=== PATIENT | male | born 1950 | race Caucasian/White ===

== ENCOUNTER → 2016-10-14 | Outpatient (REF) | payer MEDICARE ==
[2016-10-14 18:20] LABS: PERCENT SATURATION 9.9 % (19.7-37.4)
== END ==
LOC: M LAB REF 16:53
PROVIDERS: ATTEND Internal Medicine Nephrology
DX: N18.9 Chronic kidney disease, unspecified (principal); D63.1 Anemia in chronic kidney disease

== ENCOUNTER 2016-10-28 08:04 | Outpatient (CLI) | payer MEDICARE ==
[~2016-10-28] VITALS: Ht 182.9 cm; Wt 137.3 kg
[2016-10-28] MEDS ORDERED: IRON SUCROSE 25 MG in NS 50 ML IV ONE (08:15)
[2016-10-28] MEDS ORDERED: BUME1TAB29 PO (09:12)
[2016-10-28] MEDS ORDERED: SIMV40TA2 PO (09:12)
[2016-10-28] MEDS ORDERED: FAMO20TA PO (09:12)
[2016-10-28] MEDS ORDERED: ASPI81TA85 PO (09:12)
[2016-10-28] MEDS ORDERED: CARV12.5 PO (09:13)
[2016-10-28] MEDS ORDERED: PROBCAP4 PO (09:13)
[2016-10-28] MEDS ORDERED: FERR325T3 PO (09:14)
[2016-10-28] MEDS ORDERED: ULOR80TA PO (09:15)
[2016-10-28] MEDS ORDERED: LEVO25TA5 PO (09:15)
[2016-10-28] MEDS ORDERED: IRON SUCROSE 475 MG in NS 250 ML IV ONE (09:15)
[2016-10-28] MEDS ORDERED: COLA100C PO (09:16)
[2016-10-28] MEDS ORDERED: ONDA8TAB8 PO (09:16)
[2016-10-28] MEDS ORDERED: FISH1000 PO (12:51)
[2016-10-28] MEDS ORDERED: VENL50TA2 PO (12:51)
[2016-10-28] MEDS ORDERED: INSUR SC (12:52)
[2016-10-28] MEDS ORDERED: SPIR25TA2 PO (12:52)
[2016-10-28] MEDS ORDERED: MAGN400C2 PO (12:53)
[2016-10-28] MEDS ORDERED: VITA100037 PO (12:54)
[2016-10-28] MEDS ORDERED: CENT1TAB13 PO (12:55)
== END 2016-10-28 12:45 | disposition home or self-care (01) ==
LOC: M INFU 08:04
PROVIDERS: ATTEND Internal Medicine Nephrology
DX: D50.9 Iron deficiency anemia, unspecified (principal)
CPT/HCPCS: 96365; 96366; J1756

== ENCOUNTER → 2017-04-08 | Outpatient (REF) | payer MEDICARE ==
[~2017-04-08] MED LIST: ASPI81TA85 PO; BUME1TAB29 PO; CARV12.5 PO; CENT1TAB13 PO; COLA100C5 PO; FAMO20TA PO; FERR325T3 PO; FISH1000 PO; INSUR SC; LEVO25TA5 PO; MAGN400C2 PO; ONDA8TAB8 PO; PROBCAP4 PO; SIMV40TA2 PO; SPIR25TA2 PO; ULOR80TA PO; VENL50TA2 PO; VITA100067 PO
[2017-04-08 15:22] LABS: ALBUMIN 3.3 GM/DL (3.2-5.2); ALBUMIN/GLOBULIN RATIO 0.94 (1.00-1.93); BILIRUBIN,DIRECT 0.2 MG/DL (0.0-0.2); BILIRUBIN,TOTAL 0.4 MG/DL (0.2-1.0); TOTAL PROTEIN 6.8 GM/DL (6.4-8.2)
== END ==
LOC: M LAB REF 13:52
PROVIDERS: ATTEND Internal Medicine Nephrology
DX: K74.69 Other cirrhosis of liver (principal)

== ENCOUNTER → 2017-10-16 | Outpatient (REF) | payer MEDICARE ==
[2017-10-16 13:52] LABS: FERRITIN 55 NG/ML (26-388); IRON (FE) 66 UG/DL (65-175); PERCENT SATURATION 24.8 % (19.7-50.0); TOTAL IRON BINDING CAPACITY 266 UG/DL (250-450)
[2017-10-16 13:56] LABS: FOLATE 21.6 NG/ML; VITAMIN B12 LEVEL 901 PG/ML
== END ==
LOC: M LAB REF 13:24
DX: D64.9 Anemia, unspecified (principal)
CPT/HCPCS: 82746

== ENCOUNTER → 2017-11-21 | Outpatient (CLI) | payer MEDICARE | LOC: M RADPRO 11:54 | DX: K74.69 Other cirrhosis of liver (principal); Z53.9 Procedure and treatment not carried out, unspecified reason | CPT/HCPCS: 76705 ==

== ENCOUNTER 2017-12-31 08:10 | Day surgery (SDC) | payer MEDICARE ==
[~2017-12-31 08:10] MED LIST changes: +ACETAMINOPHEN 325 MG TAB PO; -ASPI81TA85 PO; -BUME1TAB29 PO; -CARV12.5 PO; -CENT1TAB13 PO; -COLA100C5 PO; -FAMO20TA PO; -FERR325T3 PO; -FISH1000 PO; -INSUR SC; -LEVO25TA5 PO; -MAGN400C2 PO; -ONDA8TAB8 PO; +PHENYLEPHRINE 2.5% OPHTH SOL 2ML OS; +PHENYLEPHRINE HCL 10 % OPHTH. SOL 5ML OS; -PROBCAP4 PO; +PROPARACAINE 0.5% OPHTH SOL 15ML OS; -SIMV40TA2 PO; -SPIR25TA2 PO; -ULOR80TA PO; -VENL50TA2 PO; -VITA100067 PO
[2017-12-31] MEDS: LIDOCAINE 3.5 % 1ML OPHTH TOPICAL GEL OU (08:30)
[2017-12-31] MEDS ORDERED: DEXTROSE 50% 50 ML SYRINGE As Ordered (08:33)
[2017-12-31] MEDS: CYCLOPENTOLATE 2% OPHTH SOLN 2ML BTL OS (08:35)
[2017-12-31] MEDS: OFLOXACIN 0.3 % (OCUFLOX) OPTH SOL 5ML OS (08:35)
[2017-12-31] MEDS: TROPICAMIDE 1% OPHTH SOLN 2ML OS (08:40)
[2017-12-31 08:46] LABS: BEDSIDE GLUCOSE 98 MG/DL (80-115)
[2017-12-31] MEDS ORDERED: MIDAZOLAM INJ 2 MG/2 ML VIAL (J2250) As Ordered (09:26)
[2017-12-31] MEDS ORDERED: fentaNYL 100 MCG/2 ML INJECTION (J3010) As Ordered (09:26)
[2017-12-31] MEDS ORDERED: DEXTROSE 50% 50 ML SYRINGE IV (09:30)
[2017-12-31] MEDS: LIDOCAINE 1% SDV 5 ML VIAL As Ordered (09:37)
[2017-12-31] MEDS: HEALON DUET (HEALON 10MG/ML 0.55ML & HEALON ENDOCOAT 30MG/ML 0.85ML) As Ordered (09:37)
[2017-12-31] MEDS: POVIDONE-IODINE 5% OPHTH PREP SOL 30ML As Ordered (09:37)
[2017-12-31] MEDS: CEFUROXIME 1MG/0.1ML INTRACAMERAL INJ As Ordered (09:38)
[2017-12-31] MEDS: BALANCED SALT IRRIGATION SOLUTION 500ML BAG (FOR OR EYE MACHINE) As Ordered (09:38)
[2017-12-31 09:48] LABS: BEDSIDE GLUCOSE 143 MG/DL (80-115)
[2017-12-31] MEDS ORDERED: TRIMETHOBENZAMIDE 300 MG CAP PO (10:30)
[2017-12-31] MEDS: KETOROLAC 0.5% OPHTH SOLN OS (10:48)
[2017-12-31 13:15] LABS: BEDSIDE GLUCOSE 78 MG/DL (80-115)
[2017-12-31 13:15] LABS: BEDSIDE GLUCOSE 162 MG/DL (80-115)
== END 2017-12-31 12:04 | disposition home or self-care (01) ==
LOC: M SDC 08:10
DX: H25.12 Age-related nuclear cataract, left eye (principal); I10 Essential (primary) hypertension; E11.9 Type 2 diabetes mellitus without complications; Z92.21 Personal history of antineoplastic chemotherapy; Z88.8 Allergy status to other drugs, medicaments and biological substances; Z88.2 Allergy status to sulfonamides; Z79.4 Long term (current) use of insulin; Z92.3 Personal history of irradiation; Z79.82 Long term (current) use of aspirin; Z79.899 Other long term (current) drug therapy; Z85.118 Personal history of other malignant neoplasm of bronchus and lung; Z85.528 Personal history of other malignant neoplasm of kidney
CPT/HCPCS: 66984

== ENCOUNTER 2018-01-28 13:12 | Inpatient (IN) | payer MEDICARE ==
[2018-01-28] MEDS: NS 1,000 ML IV ×2 (14:43→22:24)
[2018-01-28] MEDS: ONDANSETRON 4MG/2ML VIAL (J2405) IV (14:44)
[2018-01-28 15:07] LABS: BASO # 0.1 10^3/uL (0.0-0.2); BASO % 0.5 % (0.0-1.0); EOS # 0.3 10^3/uL (0.0-0.50); EOS % 2.2 % (0.0-3.0); HEMATOCRIT 35.5 % (42.0-52.0); HEMOGLOBIN 12.6 g/dl (13.5-17.5); IMMATURE GRANULOCYTE % 0.6 % (0-3.0); LYMPH # 1.4 10^3/uL (1.5-4.5); LYMPH % 10.8 % (24.0-44.0); MEAN CORPUSCULAR HEMOGLOBIN 32.7 pg (27.0-33.0); MEAN CORPUSCULAR HGB CONC 35.5 g/dl (32.0-36.5); MEAN CORPUSCULAR VOLUME 92.2 fl (80.0-96.0); MONO # 0.8 10^3/uL (0.0-0.8); MONO % 6.1 % (0.0-5.0); NEUTROPHILS # 10.1 10^3/uL (1.8-7.7); NEUTROPHILS % 79.8 % (36.0-66.0); PLATELET COUNT, AUTOMATED 191 10^3/uL (150-450); RED BLOOD COUNT 3.85 10^6/uL (4.30-6.10); RED CELL DISTRIBUTION WIDTH 12.9 % (11.5-14.5); WHITE BLOOD COUNT 12.6 10^3/uL (4.0-10.0)
[2018-01-28 15:28] LABS: INR 1.11; PROTHROMBIN TIME 14.5 SECONDS (12.4-14.5)
[2018-01-28 15:30] LABS: ALBUMIN 3.4 GM/DL (3.2-5.2); ALBUMIN/GLOBULIN RATIO 0.97 (1.00-1.93); ALKALINE PHOSPHATASE 136 U/L (45-117); ALT/SGPT 33 U/L (12-78); ANION GAP 9 MEQ/L (8-16); AST/SGOT 36 U/L (7-37); BILIRUBIN,DIRECT 0.2 MG/DL (0.0-0.2); BILIRUBIN,TOTAL 0.4 MG/DL (0.2-1.0); BLOOD UREA NITROGEN 33 MG/DL (7-18); CALCIUM LEVEL 8.7 MG/DL (8.8-10.2); CARBON DIOXIDE LEVEL 25 MEQ/L (21-32); CHLORIDE LEVEL 105 MEQ/L (98-107); CREATININE FOR GFR 3.26 MG/DL (0.70-1.30); GLOMERULAR FILTRATION RATE 20.2 (>49); GLUCOSE, FASTING 64 MG/DL (70-100); LIPASE 62 U/L (73-393); POTASSIUM SERUM 4.5 MEQ/L (3.5-5.1); SODIUM LEVEL 139 MEQ/L (136-145); TOTAL PROTEIN 6.9 GM/DL (6.4-8.2)
[2018-01-28 18:50] LABS: BEDSIDE GLUCOSE 109 MG/DL (80-115)
[2018-01-28] MEDS ORDERED: MORPHINE 4 MG/ML 1ML VIAL/SYRINGE (J2270) IV (19:30)
[2018-01-28] MEDS ORDERED: BISACODYL 10 MG SUPP PR (19:30)
[2018-01-28] MEDS ORDERED: PERCOCET 5MG/325MG TAB PO (19:30)
[2018-01-28] MEDS ORDERED: ONDANSETRON 4 MG TAB (S0181) PO (19:30)
[2018-01-28] MEDS ORDERED: ACETAMINOPHEN TAB 650MG DOSE (2X325MG) PO (19:30)
[2018-01-28] MEDS ORDERED: GLUCAGON FOR INJ 1 MG VIAL (J1610) SC (19:45)
[2018-01-28] MEDS ORDERED: GLUCOSE 4 GM CHEW TABLET PO (19:45)
[2018-01-28] MEDS ORDERED: DEXTROSE 50% 50 ML SYRINGE IV (19:45)
[2018-01-28 19:51] LABS: BASO % 0.2 % (0.0-1.0); EOS # 0.1 10^3/uL (0.0-0.50); EOS % 0.9 % (0.0-3.0); HEMATOCRIT 34.8 % (42.0-52.0); HEMOGLOBIN 11.9 g/dl (13.5-17.5); IMMATURE GRANULOCYTE % 0.3 % (0-3.0); LYMPH # 0.8 10^3/uL (1.5-4.5); LYMPH % 9.5 % (24.0-44.0); MEAN CORPUSCULAR HGB CONC 34.2 g/dl (32.0-36.5); MEAN CORPUSCULAR VOLUME 93.5 fl (80.0-96.0); MONO # 0.3 10^3/uL (0.0-0.8); MONO % 3.1 % (0.0-5.0); NEUTROPHILS # 7.5 10^3/uL (1.8-7.7); PLATELET COUNT, AUTOMATED 128 10^3/uL (150-450); RED BLOOD COUNT 3.72 10^6/uL (4.30-6.10); RED CELL DISTRIBUTION WIDTH 13.1 % (11.5-14.5); WHITE BLOOD COUNT 8.8 10^3/uL (4.0-10.0)
[2018-01-28 20:07] LABS: KETONE, URINE AUTO RFX NEGATIVE (NEGATIVE); MUCUS, URINE RFX SMALL (NEGATIVE); NITRITE, URINE AUTO RFX NEGATIVE (NEGATIVE); RBC, URINE AUTO RFX 3 /HPF (0-3); SPECIFIC GRAVITY UR AUTO RFX 1.014 (1.002-1.035); SQUAM EPITHELIAL CELL UR AURFX 2 /HPF (0-6); WBC, URINE AUTO RFX 5 /HPF (0-3)
[2018-01-28 20:20] LABS: LEUKOCYTE ESTERASE UR AUTO RFX TRACE (NEGATIVE)
[2018-01-28 20:29] LABS: ANION GAP 6 MEQ/L (8-16); BLOOD UREA NITROGEN 32 MG/DL (7-18); CALCIUM LEVEL 8.5 MG/DL (8.8-10.2); CARBON DIOXIDE LEVEL 29 MEQ/L (21-32); CHLORIDE LEVEL 104 MEQ/L (98-107); CREATININE FOR GFR 3.24 MG/DL (0.70-1.30); GLOMERULAR FILTRATION RATE 20.4 (>49); GLUCOSE, FASTING 182 MG/DL (70-100); MAGNESIUM LEVEL 2.3 MG/DL (1.8-2.4); POTASSIUM SERUM 4.9 MEQ/L (3.5-5.1); SODIUM LEVEL 139 MEQ/L (136-145)
[2018-01-28] MEDS: SENOKOT S TAB PO (22:23)
[2018-01-28] MEDS: FERROUS SULFATE 325MG TAB PO (22:23)
[2018-01-28 22:24] LABS: BEDSIDE GLUCOSE 256 MG/DL (80-115)
[2018-01-28] MEDS: HEPARIN SOD (PORCINE) 5000 UNITS/ML VIAL SC (22:24)
[2018-01-28] MEDS: CARVedilol 12.5 MG TAB PO (22:24)
[2018-01-28] MEDS: LATANOPROST 0.005% OPHTH SOLN 2.5 ML OU (22:54)
[2018-01-28] MEDS: LEVEMIR (INSULIN DETEMIR) 1 UNITS/0.01ML SC (22:54)
[2018-01-28] MEDS: HumaLOG INSULIN (NovoLOG) PER UNIT SC (22:54)
[2018-01-28 23:59] LABS: OSMOLALITY SERUM 299 MOSM/KG (280-301)
[2018-01-29] MEDS: NS 1,000 ML IV ×4 (00:07→17:25)
[2018-01-29 00:09] LABS: ESTIMATED AVERAGE GLUCOSE 361 MG/DL (60-110); HEMOGLOBIN A1c 14.2 %
[2018-01-29 00:22] LABS: THYROID STIMULATING HORMONE 0.605 uIU/ML (0.358-3.740)
[2018-01-29 02:54] LABS: BEDSIDE GLUCOSE 213 MG/DL (80-115)
[2018-01-29 04:13] LABS: POTASSIUM RANDOM URINE 22.5 MEQ/L; SODIUM,RANDOM URINE 36 MEQ/L
[2018-01-29 04:24] LABS: OSMOLALITY URINE 344 MOSM/KG (500-800)
[2018-01-29] MEDS: LEVOTHYROXINE 50MCG TABLET (0.05MG) PO (05:38)
[2018-01-29] MEDS: HEPARIN SOD (PORCINE) 5000 UNITS/ML VIAL SC ×3 (05:38→21:24)
[2018-01-29 06:19] LABS: BEDSIDE GLUCOSE 196 MG/DL (80-115)
[2018-01-29 08:43] LABS: BASO % 0.4 % (0.0-1.0); EOS # 0.1 10^3/uL (0.0-0.50); EOS % 1.9 % (0.0-3.0); HEMATOCRIT 33.4 % (42.0-52.0); HEMOGLOBIN 11.5 g/dl (13.5-17.5); IMMATURE GRANULOCYTE % 0.4 % (0-3.0); LYMPH # 1.1 10^3/uL (1.5-4.5); LYMPH % 14.1 % (24.0-44.0); MEAN CORPUSCULAR HEMOGLOBIN 32.4 pg (27.0-33.0); MEAN CORPUSCULAR HGB CONC 34.4 g/dl (32.0-36.5); MEAN CORPUSCULAR VOLUME 94.1 fl (80.0-96.0); MONO # 0.4 10^3/uL (0.0-0.8); MONO % 5.1 % (0.0-5.0); NEUTROPHILS # 5.8 10^3/uL (1.8-7.7); NEUTROPHILS % 78.1 % (36.0-66.0); PLATELET COUNT, AUTOMATED 131 10^3/uL (150-450); RED BLOOD COUNT 3.55 10^6/uL (4.30-6.10); RED CELL DISTRIBUTION WIDTH 13.2 % (11.5-14.5); WHITE BLOOD COUNT 7.4 10^3/uL (4.0-10.0)
[2018-01-29] MEDS: OMEGA-3 1050MG CAPSULE PO (08:44)
[2018-01-29] MEDS: CARVedilol 12.5 MG TAB PO ×2 (08:44→21:24)
[2018-01-29] MEDS: SENOKOT S TAB PO ×2 (08:44→21:23)
[2018-01-29] MEDS: OCUVITE 1 TAB PO (08:44)
[2018-01-29] MEDS: VENLAFAXINE 37.5 MG TAB PO (08:44)
[2018-01-29] MEDS: PANTOPRAZOLE 40MG TAB (PROTONIX) PO (08:44)
[2018-01-29] MEDS: LACTOBACILLUS ACIDOPHILUS CAP (BACID) PO (08:44)
[2018-01-29] MEDS: ASPIRIN 81 MG ENTERIC TAB PO (08:44)
[2018-01-29] MEDS: FEBUXOSTAT 40 MG TABLET (ULORIC) PO (08:44)
[2018-01-29] MEDS: HumaLOG INSULIN (NovoLOG) PER UNIT SC ×4 (08:44→21:25)
[2018-01-29] MEDS ORDERED: FEBUXOSTAT 40 MG TABLET (ULORIC) PO (09:00)
[2018-01-29 09:25] LABS: ANION GAP 7 MEQ/L (8-16); BLOOD UREA NITROGEN 33 MG/DL (7-18); CARBON DIOXIDE LEVEL 27 MEQ/L (21-32); CHLORIDE LEVEL 103 MEQ/L (98-107); CREATININE FOR GFR 3.31 MG/DL (0.70-1.30); GLOMERULAR FILTRATION RATE 19.9 (>49); GLUCOSE, FASTING 253 MG/DL (70-100); MAGNESIUM LEVEL 2.4 MG/DL (1.8-2.4); POTASSIUM SERUM 4.4 MEQ/L (3.5-5.1); SODIUM LEVEL 137 MEQ/L (136-145)
[2018-01-29 12:42] LABS: BEDSIDE GLUCOSE 245 MG/DL (80-115)
[2018-01-29 16:55] LABS: BEDSIDE GLUCOSE 270 MG/DL (80-115)
[2018-01-29 20:57] LABS: BEDSIDE GLUCOSE 370 MG/DL (80-115)
[2018-01-29] MEDS: FERROUS SULFATE 325MG TAB PO (21:24)
[2018-01-29] MEDS: LATANOPROST 0.005% OPHTH SOLN 2.5 ML OU (21:25)
[2018-01-29] MEDS: LEVEMIR (INSULIN DETEMIR) 1 UNITS/0.01ML SC (21:25)
[2018-01-30] MEDS: NS 1,000 ML IV ×3 (03:38→21:05)
[2018-01-30] MEDS: LEVOTHYROXINE 50MCG TABLET (0.05MG) PO (05:55)
[2018-01-30] MEDS: HEPARIN SOD (PORCINE) 5000 UNITS/ML VIAL SC ×3 (05:56→21:05)
[2018-01-30 06:22] LABS: HEMATOCRIT 32.7 % (42.0-52.0); HEMOGLOBIN 11.1 g/dl (13.5-17.5); MEAN CORPUSCULAR HEMOGLOBIN 32.5 pg (27.0-33.0); MEAN CORPUSCULAR HGB CONC 33.9 g/dl (32.0-36.5); MEAN CORPUSCULAR VOLUME 95.6 fl (80.0-96.0); PLATELET COUNT, AUTOMATED 113 10^3/uL (150-450); RED BLOOD COUNT 3.42 10^6/uL (4.30-6.10); RED CELL DISTRIBUTION WIDTH 13.4 % (11.5-14.5); WHITE BLOOD COUNT 4.7 10^3/uL (4.0-10.0)
[2018-01-30 06:44] LABS: ALBUMIN 2.7 GM/DL (3.2-5.2); ANION GAP 5 MEQ/L (8-16); BLOOD UREA NITROGEN 30 MG/DL (7-18); CALCIUM LEVEL 7.8 MG/DL (8.8-10.2); CARBON DIOXIDE LEVEL 26 MEQ/L (21-32); CHLORIDE LEVEL 108 MEQ/L (98-107); CREATININE FOR GFR 2.79 MG/DL (0.70-1.30); GLOMERULAR FILTRATION RATE 24.2 (>49); GLUCOSE, FASTING 294 MG/DL (70-100); MAGNESIUM LEVEL 2.1 MG/DL (1.8-2.4); PHOSPHORUS LEVEL 2.6 MG/DL (2.5-4.9); POTASSIUM SERUM 4.6 MEQ/L (3.5-5.1); SODIUM LEVEL 139 MEQ/L (136-145)
[2018-01-30] MEDS: OMEGA-3 1050MG CAPSULE PO (08:55)
[2018-01-30] MEDS: FEBUXOSTAT 40 MG TABLET (ULORIC) PO (08:55)
[2018-01-30] MEDS: LACTOBACILLUS ACIDOPHILUS CAP (BACID) PO (08:55)
[2018-01-30] MEDS: ASPIRIN 81 MG ENTERIC TAB PO (08:55)
[2018-01-30] MEDS: OCUVITE 1 TAB PO (08:55)
[2018-01-30] MEDS: PANTOPRAZOLE 40MG TAB (PROTONIX) PO (08:55)
[2018-01-30] MEDS: VENLAFAXINE 37.5 MG TAB PO (08:56)
[2018-01-30] MEDS: SENOKOT S TAB PO ×2 (08:56→21:05)
[2018-01-30] MEDS: CARVedilol 12.5 MG TAB PO ×2 (08:57→21:05)
[2018-01-30] MEDS: HumaLOG INSULIN (NovoLOG) PER UNIT SC ×4 (09:03→20:00)
[2018-01-30 11:54] LABS: BEDSIDE GLUCOSE 341 MG/DL (80-115)
[2018-01-30 17:04] LABS: BEDSIDE GLUCOSE 189 MG/DL (80-115)
[2018-01-30 19:58] LABS: BEDSIDE GLUCOSE 151 MG/DL (80-115)
[2018-01-30 20:57] LABS: BEDSIDE GLUCOSE 191 MG/DL (80-115)
[2018-01-30] MEDS: FERROUS SULFATE 325MG TAB PO (21:05)
[2018-01-30] MEDS: LATANOPROST 0.005% OPHTH SOLN 2.5 ML OU (21:05)
[2018-01-30] MEDS: LEVEMIR (INSULIN DETEMIR) 1 UNITS/0.01ML SC (21:06)
[2018-01-31] MEDS: HEPARIN SOD (PORCINE) 5000 UNITS/ML VIAL SC (05:31)
[2018-01-31] MEDS: LEVOTHYROXINE 50MCG TABLET (0.05MG) PO (05:31)
[2018-01-31 06:30] LABS: HEMATOCRIT 32.1 % (42.0-52.0); HEMOGLOBIN 10.9 g/dl (13.5-17.5); MEAN CORPUSCULAR HEMOGLOBIN 32.4 pg (27.0-33.0); MEAN CORPUSCULAR VOLUME 95.5 fl (80.0-96.0); PLATELET COUNT, AUTOMATED 106 10^3/uL (150-450); RED BLOOD COUNT 3.36 10^6/uL (4.30-6.10); RED CELL DISTRIBUTION WIDTH 13.2 % (11.5-14.5); WHITE BLOOD COUNT 3.9 10^3/uL (4.0-10.0)
[2018-01-31 06:44] LABS: ALBUMIN 2.5 GM/DL (3.2-5.2); ANION GAP 4 MEQ/L (8-16); BLOOD UREA NITROGEN 24 MG/DL (7-18); CALCIUM LEVEL 7.8 MG/DL (8.8-10.2); CARBON DIOXIDE LEVEL 26 MEQ/L (21-32); CHLORIDE LEVEL 114 MEQ/L (98-107); CREATININE FOR GFR 1.78 MG/DL (0.70-1.30); GLOMERULAR FILTRATION RATE 40.7 (>49); GLUCOSE, FASTING 121 MG/DL (70-100); MAGNESIUM LEVEL 1.9 MG/DL (1.8-2.4); POTASSIUM SERUM 4.3 MEQ/L (3.5-5.1); SODIUM LEVEL 144 MEQ/L (136-145)
[2018-01-31] MEDS: CARVedilol 12.5 MG TAB PO (08:03)
[2018-01-31] MEDS: VENLAFAXINE 37.5 MG TAB PO (08:03)
[2018-01-31] MEDS: HumaLOG INSULIN (NovoLOG) PER UNIT SC ×2 (08:03→12:19)
[2018-01-31] MEDS: LACTOBACILLUS ACIDOPHILUS CAP (BACID) PO (08:04)
[2018-01-31] MEDS: ASPIRIN 81 MG ENTERIC TAB PO (08:04)
[2018-01-31] MEDS: PANTOPRAZOLE 40MG TAB (PROTONIX) PO (08:04)
[2018-01-31] MEDS: SENOKOT S TAB PO (08:04)
[2018-01-31] MEDS: OMEGA-3 1050MG CAPSULE PO (08:04)
[2018-01-31] MEDS: OCUVITE 1 TAB PO (08:05)
[2018-01-31] MEDS: FEBUXOSTAT 40 MG TABLET (ULORIC) PO (08:05)
[2018-01-31 11:57] LABS: BEDSIDE GLUCOSE 171 MG/DL (80-115)
== END 2018-01-31 14:17 | disposition home or self-care (01) | DRG 641 ==
LOC: M ED 13:12 → M ED INP 19:55 → M MSPAV 22:05
DX: E86.0 Dehydration (principal); N17.9 Acute kidney failure, unspecified; N18.4 Chronic kidney disease, stage 4 (severe); N25.81 Secondary hyperparathyroidism of renal origin; E11.65 Type 2 diabetes mellitus with hyperglycemia; M10.9 Gout, unspecified; E03.9 Hypothyroidism, unspecified; I25.10 Atherosclerotic heart disease of native coronary artery without angina pectoris; E11.22 Type 2 diabetes mellitus with diabetic chronic kidney disease; I12.9 Hypertensive chronic kidney disease with stage 1 through stage 4 chronic kidney disease, or unspecified chronic kidney disease; R11.0 Nausea; R63.0 Anorexia; D64.9 Anemia, unspecified; Z79.82 Long term (current) use of aspirin; Z79.4 Long term (current) use of insulin; Z79.899 Other long term (current) drug therapy; Z88.2 Allergy status to sulfonamides; Z88.1 Allergy status to other antibiotic agents; Z88.8 Allergy status to other drugs, medicaments and biological substances; Z92.21 Personal history of antineoplastic chemotherapy; Z85.528 Personal history of other malignant neoplasm of kidney; Z90.5 Acquired absence of kidney; Z91.19 Patient's noncompliance with other medical treatment and regimen; Z92.3 Personal history of irradiation; Z85.118 Personal history of other malignant neoplasm of bronchus and lung

== ENCOUNTER → 2018-06-18 | Outpatient (CLI) | payer MEDICARE | LOC: M PT 06:26 | DX: M17.0 Bilateral primary osteoarthritis of knee (principal) | CPT/HCPCS: 97162 ==

== ENCOUNTER → 2018-08-06 | Outpatient (CLI) | payer MEDICARE ==
[~2018-08-06] MED LIST changes: -ACETAMINOPHEN 325 MG TAB PO; +ASPI81TA85 PO; +BUME1TAB29 PO; +CALCTAB7 PO; +CARV12.5 PO; +CENT1TAB13 PO; +COLA100C5 PO; +FAMO20TA PO; +FERR325T3 PO; +FISH1000 PO; +INSUR SC; +LEVE1INJ5 SC; +LEVO25TA5 PO; +LEVO50TA5 PO; +MAGN1TAB25 PO; +MAGN400C2 PO; +ONDA8TAB8 PO; -PHENYLEPHRINE 2.5% OPHTH SOL 2ML OS; -PHENYLEPHRINE HCL 10 % OPHTH. SOL 5ML OS; +PROBCAP4 PO; -PROPARACAINE 0.5% OPHTH SOL 15ML OS; +PROT1TAB2 PO; +ROCA0.5C PO; +SIMV40TA2 PO; +SPIR-10 PO; +TRUL0.5I SC; +ULOR80TA PO; +VENL37TA PO; +VENL50TA2 PO; +VITA100067 PO; +VITA50005 PO; +XALA0.007 OU
--- NOTE | 2018-08-06 13:18 | REP ---
LIMITED ABDOMINAL ULTRASOUND: Real-time sonographic evaluation of the abdomen performed in all four quadrants to evaluate for possible ascites. No significant free fluid is seen in any portion of the abdomen or pelvis. Electronically Signed by Darren Faulkner MD 08/06/2018 02:58 P
== END ==
LOC: M RADPRO 09:59
PROVIDERS: ATTEND Internal Medicine Nephrology
DX: N18.3 Chronic kidney disease, stage 3 (moderate) (principal); K74.69 Other cirrhosis of liver; I20.9 Angina pectoris, unspecified; Z79.82 Long term (current) use of aspirin; Z79.899 Other long term (current) drug therapy; Z79.4 Long term (current) use of insulin; Z79.890 Hormone replacement therapy; Z88.8 Allergy status to other drugs, medicaments and biological substances; Z88.1 Allergy status to other antibiotic agents; Z88.2 Allergy status to sulfonamides

== ENCOUNTER 2018-11-18 09:45 | Outpatient (RCR) | payer MEDICARE ==
--- NOTE | 2018-11-11 16:50 | NUR ---
Patient presents with mild oropharyngeal dysphagia characterized by muscle weakness secondary to stroke. Patient also presents with multiple unsafe feedings strategies which increase his risk of aspiration/choking. The clinician recommends therapy for dysphagia management 1 x weekly for the next 4 weeks to provide education on safe feeding strategies and exercises to maximize safety and decrease risk of aspiration w/PO intake. Addendum: 11/11/18 at 1656 by MODESTA FARRIS Amended: Links added.
== END 2018-11-22 ==
LOC: M ST 09:45
PROVIDERS: ATTEND Internal Medicine Cardiovascular Disease
DX: I63.9 Cerebral infarction, unspecified (principal)

== ENCOUNTER 2018-12-16 08:12 | Outpatient (RCR) | payer MEDICARE ==
[~2018-12-16 08:12] MED LIST changes: -MAGN1TAB25 PO; +MAGN1TAB26 PO
== END 2018-12-22 ==
LOC: M ST 08:12
PROVIDERS: ATTEND Internal Medicine Cardiovascular Disease
DX: I69.328 Other speech and language deficits following cerebral infarction (principal)

== ENCOUNTER 2020-04-17 17:19 | Inpatient (IN) | payer MEDICARE ==
[~2020-04-17] VITALS: Ht 185.4 cm; Wt 121.0 kg
[~2020-04-17 17:19] MED LIST changes: -ASPI81TA85 PO; +ASPI81TA86 PO; +CALC-211 PO; -CALCTAB7 PO; -SIMV40TA2 PO; +SIMV40TA20 PO
[2020-04-17] MEDS ORDERED: ONDANSETRON 4MG/2ML VIAL IV ONE (18:00)
[2020-04-17] MEDS: MORPHINE 2 MG/ML 1ML VIAL (J2270) IV PRN (18:43)
[2020-04-17 20:06] LABS: MEAN CORPUSCULAR HEMOGLOBIN 33.5 pg (27.0-33.0); MEAN CORPUSCULAR HGB CONC 35.5 g/dl (32.0-36.5); MEAN CORPUSCULAR VOLUME 94.5 fl (80.0-96.0); PLATELET COUNT, AUTOMATED 154 10^3/uL (150-450); RED BLOOD COUNT 3.28 10^6/uL (4.30-6.10); WHITE BLOOD COUNT 13.9 10^3/uL (4.0-10.0)
[2020-04-17 20:46] LABS: CALCIUM LEVEL 8.1 MG/DL (8.8-10.2); CREATININE FOR GFR 4.55 MG/DL (0.70-1.30); GLOMERULAR FILTRATION RATE 13.7 (>42); POTASSIUM SERUM 5.7 MEQ/L (3.5-5.1)
[2020-04-17] MEDS ORDERED: NS 1,000 ML IV SCH (21:11)
[2020-04-17] MEDS ORDERED: SOD POLYSTYRENE SULFONATE SUSP 15 GM/60 ML UD PO ONE (21:15)
[2020-04-17] MEDS ORDERED: MOM 30ML SUSPENSION UDC PO PRN (21:45)
[2020-04-17] MEDS ORDERED: INSUHUMDS SC (22:22)
[2020-04-17] MEDS ORDERED: VENL37.52 PO (22:22)
[2020-04-17] MEDS ORDERED: VITA50005 PO (22:22)
[2020-04-17] MEDS ORDERED: BAYE325T12 PO (22:22)
[2020-04-17] MEDS ORDERED: CALC500T44 PO (22:22)
[2020-04-17] MEDS ORDERED: SPIR-10 PO (22:22)
[2020-04-17] MEDS ORDERED: BACITAB PO (22:22)
[2020-04-17] MEDS ORDERED: FISH1000 PO (22:22)
[2020-04-17] MEDS ORDERED: INSULADS SC (22:22)
[2020-04-17] MEDS ORDERED: BUME1TAB3 PO (22:22)
[2020-04-17] MEDS ORDERED: HYDR-3911 PO (22:22)
[2020-04-17] MEDS ORDERED: SIMV40TA20 PO (22:22)
[2020-04-17] MEDS ORDERED: VITMTA PO (22:22)
[2020-04-18] VITALS (12 sets, daily range): BP systolic 135–188; BP diastolic 62–96
--- NOTE | 2020-04-18 00:51 | REPVR ---
PROCEDURE INFORMATION: Exam: US Retroperitoneal; Complete; Kidneys and Bladder Exam date and time: 04/18/2020 12:36 AM Age: 69 years old Clinical indication: Abnormal findings; Abnormal lab test; Abnormal kidney function lab tests; Additional info: Acute on ckd. Status post left nephrectomy. TECHNIQUE: Imaging protocol: Real-time ultrasound of the retroperitoneum with image documentation. Complete exam focused on the kidneys and bladder. COMPARISON: Abdomen, limited US 08/06/2018 10:05 AM FINDINGS: Right kidney: Right kidney measures 8.5 cm in length. No right hydronephrosis. Mild renal cortical atrophy. Mild scarring in the upper pole. Normal echogenicity. Left kidney: Left kidney is not seen in the renal fossa. Bladder: Bladder is unremarkable. IMPRESSION: 1. No right hydronephrosis. 2. Mild right renal cortical atrophy. 3. Left kidney is not seen. Electronically signed by: Clara Ferrari On 04/18/2020 00:51:32 AM
[2020-04-18] MEDS: ACETAMINOPHEN TAB 650MG DOSE (2X325MG) PO PRN (01:17)
[2020-04-18 01:49] LABS: CK-MB VALUE MASS 2.7 NG/ML (<3.6); MB/CK RELATIVE INDEX 2.78 (< OR =4); TROPONIN I 0.02 NG/ML (< 0.10)
[2020-04-18] MEDS ORDERED: PERCOCET 5MG/325MG TAB PO PRN (02:15)
[2020-04-18] MEDS: PERCOCET 5MG/325MG TAB PO PRN ×5 (03:30→23:16)
[2020-04-18] MEDS: FERROUS SULFATE 325MG TAB PO SCH ×2 (03:31→20:16)
[2020-04-18] MEDS: CARVedilol 12.5 MG TAB PO SCH ×3 (03:31→20:18)
[2020-04-18] MEDS: **hydrALAZINE** 50 MG TAB PO SCH ×4 (03:31→20:18)
[2020-04-18] MEDS: LATANOPROST 0.005% OPHTH SOLN 2.5 ML OU SCH ×2 (03:32→20:19)
[2020-04-18] MEDS: SIMVASTATIN 40 MG TAB PO SCH ×2 (03:32→20:17)
[2020-04-18 05:45] LABS: HEMATOCRIT 28.4 % (42.0-52.0); HEMOGLOBIN 9.9 g/dl (13.5-17.5); MEAN CORPUSCULAR HEMOGLOBIN 32.9 pg (27.0-33.0); MEAN CORPUSCULAR HGB CONC 34.9 g/dl (32.0-36.5); MEAN CORPUSCULAR VOLUME 94.4 fl (80.0-96.0); PLATELET COUNT, AUTOMATED 114 10^3/uL (150-450); RED BLOOD COUNT 3.01 10^6/uL (4.30-6.10); WHITE BLOOD COUNT 8.2 10^3/uL (4.0-10.0)
[2020-04-18 06:09] LABS: CK-MB VALUE MASS 2.8 NG/ML (<3.6); CREATININE FOR GFR 4.69 MG/DL (0.70-1.30); GLOMERULAR FILTRATION RATE 13.2 (>42); MAGNESIUM LEVEL 2.1 MG/DL (1.8-2.4); MB/CK RELATIVE INDEX 2.46 (< OR =4); POTASSIUM SERUM 4.9 MEQ/L (3.5-5.1); TROPONIN I 0.02 NG/ML (< 0.10)
[2020-04-18] MEDS: amLODIPine 5 MG TAB PO SCH ×2 (06:31→20:17)
[2020-04-18] MEDS: LEVOTHYROXINE 50MCG TABLET (0.05MG) PO SCH (06:32)
[2020-04-18] MEDS: ASPIRIN 325 MG TAB PO SCH (08:40)
[2020-04-18] MEDS: LACTOBACILLUS ACIDOPHILUS CAP (BACID) PO SCH (08:40)
[2020-04-18] MEDS: FEBUXOSTAT 40 MG TABLET (ULORIC) PO SCH (08:40)
[2020-04-18] MEDS: VENLAFAXINE **XR** 37.5 MG CAPSULE PO SCH (08:40)
[2020-04-18] MEDS: PANTOPRAZOLE 40MG TAB (PROTONIX) PO SCH (08:42)
[2020-04-18] MEDS: CALCIUM/VITAMIN D 500 MG TAB PO SCH (08:42)
[2020-04-18] MEDS: MULTIVITAMINS/MINERALS THERAP 1 TAB PO SCH (08:42)
[2020-04-18] MEDS ORDERED: PREVNAR 13 VACCINE SYRINGE IM ONE (09:00)
[2020-04-18] MEDS ORDERED: DEXTROSE 50% 50 ML SYRINGE IV PRN (10:30)
[2020-04-18] MEDS ORDERED: GLUCOSE 4GM CHEW TABLET PO PRN (10:30)
[2020-04-18] MEDS ORDERED: GLUCAGON INJ 1MG VIAL SC PRN (10:30)
[2020-04-18] MEDS ORDERED: NS 1,000 ML IV SCH (10:45)
--- NOTE | 2020-04-18 11:11 | IPNPDOC ---
Text Note Date of Service The patient was seen on 04/18/20. NOTE Patient seen and examined at the bed side. States he feels much better then y . Lft arm wrapped in sling. PHYSICAL EXAMINATION: GENERAL: NAD, calm/cooperative, laying flat in bed HEENT: MMM, NC/AT, EOMI/PERRL CARDIOVASCULAR: RRR, no r/g, +s1/s2 RESPIRATORY: CTAB ABDOMINAL: Soft, non tender , +BS, no obvious organomegaly EXTREMITIES: no clubbing/cyanosis/edema, Lft arm wrapped in sling. NEUROLOGICAL: no obvious neurologic deficits PSYCHOLOGICAL: normal mood/flat affect LABORATORY DATA, IMAGING STUDIES, MICROBIOLOGY: Please see below. PROBLEMS: 1. Acute renal failure superimposed on chronic kidney disease. He states that because of his chronic pain he takes 2 aleeves 3-4 days in week. He probably has ATN , could be dehydration compnent as well .IV fluids will be continued at 75cc per hour. Aviod nephro toxic drugs. I/O strict. Made 800 cc in last 12 hours . Has a h/o BPH as well and had a post renal component as well but post viod bladder scan is <15cc. Cont to monitor. PTH ordered to corelate with the degree of CKD. 2. H/O renal CC . S/p left nephrectomy. 3. Fall. Mechanical. Xray of left shoulder reviewed. Currently awaiting ortho consult. DISPOSITION:Unknown at this time VS,Robbbone, I+O VS, Fishbone, I+O Laboratory Tests 04/17/20 19:36 04/17/20 19:51 04/18/20 04:45 Vital Signs Date Time Temp Pulse Resp B/P (MAP) Pulse Ox O2 Delivery O2 Flow Rate FiO2 04/18/20 08:42 61 04/18/20 08:41 152/72 04/18/20 08:40 22 97 Room Air 04/18/20 08:00 97.0 I&O- Last 24 Hours up to 6 AM 04/18/20 06:00 Intake Total 990 ml Output Total 800 ml Balance 190 ml ERIKA CASTLE MD Apr 18, 2020 10:44
[2020-04-18] MEDS ORDERED: PREVNAR 13 VACCINE SYRINGE IM SCH (12:00)
[2020-04-18] MEDS: HumaLOG INSULIN (NovoLOG) PER UNIT SC SCH ×3 (12:15→20:29)
[2020-04-18 12:31] LABS: PTH INTACT 103.9 PG/ML (18.5-88.0)
[2020-04-19] VITALS (7 sets, daily range): BP systolic 114–179; BP diastolic 60–96
[2020-04-19] MEDS: MORPHINE 2 MG/ML 1ML VIAL (J2270) IV PRN (00:07)
[2020-04-19 05:09] LABS: BASO % 0.6 % (0.0-1.0); EOS # 0.4 10^3/uL (0.0-0.5); EOS % 6.2 % (0.0-3.0); HEMATOCRIT 26.9 % (42.0-52.0); LYMPH # 0.9 10^3/uL (1.5-5.0); LYMPH % 13.6 % (24.0-44.0); MEAN CORPUSCULAR HEMOGLOBIN 32.3 pg (27.0-33.0); MEAN CORPUSCULAR HGB CONC 33.5 g/dl (32.0-36.5); MEAN CORPUSCULAR VOLUME 96.4 fl (80.0-96.0); MONO # 0.4 10^3/uL (0.0-0.8); MONO % 5.5 % (0.0-5.0); NEUTROPHILS # 5.1 10^3/uL (1.5-8.5); NEUTROPHILS % 73.8 % (36.0-66.0); RED BLOOD COUNT 2.79 10^6/uL (4.30-6.10); WHITE BLOOD COUNT 6.9 10^3/uL (4.0-10.0)
[2020-04-19] MEDS: LEVOTHYROXINE 50MCG TABLET (0.05MG) PO SCH (05:15)
[2020-04-19] MEDS: PERCOCET 5MG/325MG TAB PO PRN ×2 (05:17→19:59)
[2020-04-19 05:33] LABS: PLATELET COUNT, AUTOMATED 96 10^3/uL (150-450)
[2020-04-19 05:34] LABS: ALBUMIN 2.3 GM/DL (3.2-5.2); BILIRUBIN,TOTAL 0.4 MG/DL (0.2-1.0); CALCIUM LEVEL 7.8 MG/DL (8.8-10.2); CREATININE FOR GFR 4.44 MG/DL (0.70-1.30); GLOMERULAR FILTRATION RATE 14.1 (>42); POTASSIUM SERUM 4.7 MEQ/L (3.5-5.1); TOTAL PROTEIN 5.4 GM/DL (6.4-8.2)
[2020-04-19] MEDS: ONDANSETRON 4 MG ORAL DISINTEGRATING TAB PO PRN (06:12)
[2020-04-19] MEDS ORDERED: ONDANSETRON 4MG/2ML VIAL As Ordered ONE (07:54)
[2020-04-19] MEDS: HumaLOG INSULIN (NovoLOG) PER UNIT SC SCH ×4 (07:58→21:00)
[2020-04-19] MEDS ORDERED: ONDANSETRON 4MG/2ML VIAL IV ONE (08:00)
--- NOTE | 2020-04-19 09:37 | REPVR ---
PROCEDURE INFORMATION: Exam: US Duplex Right Upper Extremity Veins, Limited Exam date and time: 04/19/2020 8:38 AM Age: 69 years old Clinical indication: Condition or disease; Other: Esrd; Additional info: Pre avf, esrd, vein mapping ue TECHNIQUE: Imaging protocol: Real-time Duplex ultrasound of the Right Upper Extremity with 2-D kennedy scale, color Doppler flow and spectral waveform analysis with image documentation. Limited exam focused on the right upper extremity veins. COMPARISON: No relevant prior studies available. FINDINGS: Right deep veins: Unremarkable. Axillary and brachial veins are patent throughout without thrombus. Normal Doppler waveforms. Normal compressibility and/or augmentation response. Visualized internal jugular and subclavian veins are patent. Right superficial veins: Unremarkable. Visualized cephalic and basilic veins are patent without thrombus. Basilic venous diameters 3.5 mm in the upper humerus, 3.3 mm in the lower humerus, 2.0 mm in the upper forearm, 1.6 mm in the lower forearm, 1.9 mm in the median cubital region. Cephalic venous diameters 2.5 mm in the upper humerus, 3.6 mm in the lower humerus, 1.7 mm in the upper forearm, 1.2 mm in the lower forearm, 1.9 mm in the median cubital region. 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 Soft tissues: Unremarkable. IMPRESSION: 1. No deep venous thrombus demonstrated in the right upper extremity. 2. Superficial venous diameters as described. 3. 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 Electronically signed by: Hakeem Sepulveda On 04/19/2020 09:37:37 AM
--- NOTE | 2020-04-19 09:43 | REPVR ---
PROCEDURE INFORMATION: Exam: CT Abdomen And Pelvis Without Contrast Exam date and time: 04/19/2020 8:48 AM Age: 69 years old Clinical indication: Abdominal pain; Additional info: N/v TECHNIQUE: Imaging protocol: Computed tomography of the abdomen and pelvis without contrast. Radiation optimization: All CT scans at this facility use at least one of these dose optimization techniques: automated exposure control; mA and/or kV adjustment per patient size (includes targeted exams where dose is matched to clinical indication); or iterative reconstruction. COMPARISON: US Renal 04/18/2020 12:35 AM FINDINGS: Limitations: Evaluation is somewhat limited by lack of IV contrast. Pleural space: There is a small right pleural effusion. This is associated with compression atelectasis and possibly consolidation. The left lung demonstrates minor atelectasis and scarring. Liver: The liver has a shrunken appearance and nodular contour, suggesting cirrhosis. Gallbladder and bile ducts: Neither the gallbladder nor cholecystectomy clips are identified. Pancreas: The pancreas demonstrates fatty atrophy. Spleen: The spleen contains some tiny calcified granulomas. It appears otherwise grossly unremarkable. Adrenals: Grossly unremarkable. Kidneys and ureters: The left kidney is surgically absent. The right kidney is without hydronephrosis or stone, and contains a 1.2 cm cyst posteromedially, not requiring follow-up. Stomach and bowel: The unopacified small bowel is not significantly distended to suggest obstruction. The large bowel is grossly unremarkable in appearance. Appendix: The appendix is not identified, but there are no inflammatory changes in its expected region. Intraperitoneal space: No free air or significant free fluid. Vasculature: The abdominal aorta is nonaneurysmal. Atherosclerotic vascular calcifications are noted. Lymph nodes: No gross pathologic lymphadenopathy. Bladder: Grossly unremarkable. Reproductive: Unremarkable as visualized. Bones/joints: Degenerative changes involve the spine and hips. Soft tissues: There appear to be operative changes of left inguinal hernia repair. A small fat containing right inguinal hernia is present, as is a small fat containing umbilical hernia. IMPRESSION: 1. Left kidney surgically absent. Right kidney without hydronephrosis or stone. 2. Small right pleural effusion associated with compression atelectasis and possibly consolidation. Follow-up with dedicated chest imaging. 3. Cirrhotic appearance of the liver. 4. Small fat containing right inguinal and umbilical hernias, with apparent prior operative repair of left inguinal hernia. COMMENTS: Depending on suspected etiology of symptoms, consider a targeted ultrasound or contrast enhanced exam. Electronically signed by: Hakeem Sepulveda On 04/19/2020 09:43:31 AM
[2020-04-19] MEDS: CALCIUM/VITAMIN D 500 MG TAB PO SCH (10:34)
[2020-04-19] MEDS: amLODIPine 5 MG TAB PO SCH ×2 (10:34→20:00)
[2020-04-19] MEDS: ASPIRIN 325 MG TAB PO SCH (10:34)
[2020-04-19] MEDS: FEBUXOSTAT 40 MG TABLET (ULORIC) PO SCH (10:34)
[2020-04-19] MEDS: CARVedilol 12.5 MG TAB PO SCH ×2 (10:35→20:00)
[2020-04-19] MEDS: LACTOBACILLUS ACIDOPHILUS CAP (BACID) PO SCH (10:35)
[2020-04-19] MEDS: PANTOPRAZOLE 40MG TAB (PROTONIX) PO SCH (10:35)
[2020-04-19] MEDS: VENLAFAXINE **XR** 37.5 MG CAPSULE PO SCH (10:35)
[2020-04-19] MEDS: CALCITRIOL 0.25 MCG CAP (S0169) PO SCH (10:35)
[2020-04-19] MEDS: MULTIVITAMINS/MINERALS THERAP 1 TAB PO SCH (10:35)
[2020-04-19] MEDS: **hydrALAZINE** 50 MG TAB PO SCH ×3 (10:36→19:58)
--- NOTE | 2020-04-19 10:39 | IPNPDOC ---
Text Note Date of Service The patient was seen on 04/19/20. NOTE Patient seen and examined at the bed side. States he feels much better . Lft arm wrapped in sling. PHYSICAL EXAMINATION: GENERAL: NAD, calm/cooperative, laying flat in bed HEENT: MMM, NC/AT, EOMI/PERRL CARDIOVASCULAR: RRR, no r/g, +s1/s2 RESPIRATORY: CTAB ABDOMINAL: Soft, non tender , +BS, no obvious organomegaly EXTREMITIES: no clubbing/cyanosis/edema, Lft arm wrapped in sling. NEUROLOGICAL: no obvious neurologic deficits PSYCHOLOGICAL: normal mood/flat affect LABORATORY DATA, IMAGING STUDIES, MICROBIOLOGY: Please see below. PROBLEMS: 1. Acute renal failure superimposed on chronic kidney disease. He states that because of his chronic pain he takes 2 aleeves 3-4 days in week. .IV fluids dced. Aviod nephro toxic drugs. I/O strict. Made 1500 cc in last 24 hours . Has a h/o BPH as well and had a post renal component as well but post viod bladder scan is <15cc. Cont to monitor. PTH ordered to corelate with the degree of CKD. Also seems like his base line Cr might be higher as he was already scheduled for vein maping and Dr Kaufman is his hot top liner. He is already consulted. K, volume, acid base status acceptable. No need of urgent HD in my opinion. 2. H/O renal CC . S/p left nephrectomy. 3. Fall. Mechanical. Xray of left shoulder reviewed. Currently awaiting ortho consult but as per nursing, they want conservative management. DISPOSITION:Unknown at this time but will likely require rehab VS,Edgard, I+O VS, Edgard, I+O Laboratory Tests 04/19/20 04:33 Vital Signs Date Time Temp Pulse Resp B/P (MAP) Pulse Ox O2 Delivery O2 Flow Rate FiO2 04/19/20 05:47 18 Room Air 04/19/20 04:00 97.4 71 138/67 (90) 98 I&O- Last 24 Hours up to 6 AM 04/19/20 06:00 Intake Total 3020 ml Output Total 2675 ml Balance 345 ml ERIKA CASTLE MD Apr 19, 2020 10:39
[2020-04-19] MEDS: ONDANSETRON 4MG/2ML VIAL IV PRN (14:07)
[2020-04-19] MEDS: FERROUS SULFATE 325MG TAB PO SCH (19:58)
[2020-04-19] MEDS: SIMVASTATIN 40 MG TAB PO SCH (19:59)
[2020-04-19] MEDS: LATANOPROST 0.005% OPHTH SOLN 2.5 ML OU SCH (21:00)
[2020-04-19] MEDS ORDERED: MORPHINE 2 MG/ML 1ML VIAL (J2270) IV ONE (22:45)
[2020-04-20] VITALS: BP 164/77
[2020-04-20] MEDS ORDERED: MORPHINE 2 MG/ML 1ML VIAL (J2270) IV ONE (00:45)
[2020-04-20] MEDS: PERCOCET 5MG/325MG TAB PO PRN ×3 (02:43→19:32)
[2020-04-20 04:00] VITALS: BP 142/65
[2020-04-20 05:57] LABS: BASO % 0.3 % (0.0-1.0); EOS # 0.4 10^3/uL (0.0-0.5); EOS % 6.3 % (0.0-3.0); HEMATOCRIT 26.9 % (42.0-52.0); HEMOGLOBIN 9.4 g/dl (13.5-17.5); LYMPH # 0.8 10^3/uL (1.5-5.0); LYMPH % 11.2 % (24.0-44.0); MEAN CORPUSCULAR HEMOGLOBIN 33.3 pg (27.0-33.0); MEAN CORPUSCULAR HGB CONC 34.9 g/dl (32.0-36.5); MEAN CORPUSCULAR VOLUME 95.4 fl (80.0-96.0); MONO # 0.5 10^3/uL (0.0-0.8); MONO % 7.1 % (0.0-5.0); NEUTROPHILS # 5.1 10^3/uL (1.5-8.5); NEUTROPHILS % 74.8 % (36.0-66.0); PLATELET COUNT, AUTOMATED 101 10^3/uL (150-450); RED BLOOD COUNT 2.82 10^6/uL (4.30-6.10); WHITE BLOOD COUNT 6.9 10^3/uL (4.0-10.0)
[2020-04-20] MEDS: LEVOTHYROXINE 50MCG TABLET (0.05MG) PO SCH (06:04)
[2020-04-20 06:27] LABS: ALBUMIN 2.6 GM/DL (3.2-5.2); BILIRUBIN,TOTAL 0.4 MG/DL (0.2-1.0); CALCIUM LEVEL 8.2 MG/DL (8.8-10.2); CREATININE FOR GFR 4.36 MG/DL (0.70-1.30); GLOMERULAR FILTRATION RATE 14.4 (>42); POTASSIUM SERUM 4.7 MEQ/L (3.5-5.1); TOTAL PROTEIN 5.4 GM/DL (6.4-8.2)
[2020-04-20 08:00] VITALS: BP 137/69
[2020-04-20] MEDS ORDERED: DARBEPOETIN 100 MCG/0.5 ML *NON-DIALYSIS* SYRINGE (J0881) SC SCH (09:00)
[2020-04-20] MEDS: HumaLOG INSULIN (NovoLOG) PER UNIT SC SCH ×4 (09:09→21:00)
[2020-04-20] MEDS: MULTIVITAMINS/MINERALS THERAP 1 TAB PO SCH (09:10)
[2020-04-20] MEDS: CALCIUM/VITAMIN D 500 MG TAB PO SCH (09:10)
[2020-04-20] MEDS: FEBUXOSTAT 40 MG TABLET (ULORIC) PO SCH (09:10)
[2020-04-20] MEDS: LACTOBACILLUS ACIDOPHILUS CAP (BACID) PO SCH (09:10)
[2020-04-20] MEDS: ASPIRIN 325 MG TAB PO SCH (09:10)
[2020-04-20] MEDS: **hydrALAZINE** 50 MG TAB PO SCH ×3 (09:11→21:06)
[2020-04-20] MEDS: amLODIPine 5 MG TAB PO SCH ×2 (09:11→21:06)
[2020-04-20] MEDS: PANTOPRAZOLE 40MG TAB (PROTONIX) PO SCH (09:11)
[2020-04-20] MEDS: CARVedilol 12.5 MG TAB PO SCH ×2 (09:12→21:06)
[2020-04-20] MEDS: VENLAFAXINE **XR** 37.5 MG CAPSULE PO SCH (09:12)
--- NOTE | 2020-04-20 11:10 | IPNPDOC ---
Text Note Date of Service The patient was seen on 04/20/20. NOTE Patient seen and examined at the bed side. States he feels much better . Lft arm wrapped in sling. Had vein mapping done yesterday. PHYSICAL EXAMINATION: GENERAL: NAD, calm/cooperative, laying flat in bed HEENT: MMM, NC/AT, EOMI/PERRL CARDIOVASCULAR: RRR, no r/g, +s1/s2 RESPIRATORY: CTAB ABDOMINAL: Soft, non tender , +BS, no obvious organomegaly EXTREMITIES: no clubbing/cyanosis/edema, Lft arm wrapped in sling. NEUROLOGICAL: no obvious neurologic deficits PSYCHOLOGICAL: normal mood/flat affect LABORATORY DATA, IMAGING STUDIES, MICROBIOLOGY: Please see below. PROBLEMS: 1. Acute renal failure superimposed on chronic kidney disease. He states that because of his chronic pain he takes 2 aleeves 3-4 days in week. .IV fluids dced. Aviod nephro toxic drugs. I/O strict. Made 1500 cc in last 24 hours . Has a h/o BPH as well and had a post renal component as well but post viod bladder scan is <15cc. Cont to monitor. 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 K, volume, acid base status acceptable. No need of urgent HD in my opinion. 2. H/O renal CC . S/p left nephrectomy. 3. Fall. Mechanical. Xray of left shoulder reviewed. Currently awaiting ortho consult but as per nursing, they want conservative management. Will contact them regarding the weightbearing and sling DISPOSITION:Unknown at this time but will likely require rehab VS,Edgard, I+O VS, Edgard, I+O Laboratory Tests 04/20/20 05:15 Vital Signs Date Time Temp Pulse Resp B/P (MAP) Pulse Ox O2 Delivery O2 Flow Rate FiO2 04/20/20 09:11 84 04/20/20 09:11 137/69 04/20/20 09:10 18 94 Room Air 04/20/20 08:00 97.1 I&O- Last 24 Hours up to 6 AM 04/20/20 06:00 Intake Total 820 ml Output Total 1750 ml Balance -930 ml ERIKA CASTLE MD Apr 20, 2020 11:10
[2020-04-20 11:30] VITALS: BP 135/68
--- NOTE | 2020-04-20 15:44 | IPNPDOC ---
Date Seen The patient was seen on 04/20/20. Progress Note We reviewed the vein mapping of Mr. Caban. Unfortunately, he only allowed the right arm to be mapped due to injury to the left shoulder. The right upper extremity veins are not likely to be suitable for fistula creation. In AV graft is an option, but instead, I would prefer to wait until the patient's injury heels a bit and see if he would allow us to do a left upper extremity vein mapping. If we can do an autologous fistula, I would prefer that. Therefore, we like to see him in clinic in 2-4 weeks post discharge to discuss if he feels able to undergo left upper extremity vein mapping. After we have mapped the left upper extremity, we'll make a decision about AV access. We appreciate the opportunity to participate in the care of this patient. VS, I&O, 24H, Edgard Vital Signs/I&O Vital Signs Date Time Temp Pulse Resp B/P (MAP) Pulse Ox O2 Delivery O2 Flow Rate FiO2 04/20/20 11:30 96.1 76 18 135/68 (90) 97 Room Air I&O- Last 24 Hours up to 6 AM 04/20/20 06:00 Intake Total 820 ml Output Total 1750 ml Balance -930 ml Laboratory Data 24H LABS Laboratory Tests 2 04/20/20 05:15: Immature Granulocyte % (Auto) 0.3, Neutrophils (%) (Auto) 74.8H, Lymphocytes (%) (Auto) 11.2L, Monocytes (%) (Auto) 7.1H, Eosinophils (%) (Auto) 6.3H, Basophils (%) (Auto) 0.3, Neutrophils # (Auto) 5.1, Lymphocytes # (Auto) 0.8L, Monocytes # (Auto) 0.5, Eosinophils # (Auto) 0.4, Basophils # (Auto) 0.0, Nucleated Red Blood Cells % (auto) 0.0, Anion Gap 5L, Glomerular Filtration Rate 14.4L, Calcium Level 8.2L, Total Bilirubin 0.4, Aspartate Amino Transf (AST/SGOT) 55H, Alanine Aminotransferase (ALT/SGPT) 62, Alkaline Phosphatase 234H, Total Protein 5.4L, Albumin 2.6L, Albumin/Globulin Ratio 0.9 CBC/BMP Laboratory Tests 04/20/20 05:15 HAILEY MARTINES MD Apr 20, 2020 15:44
[2020-04-20 16:00] VITALS: BP 117/65
[2020-04-20 20:00] VITALS: BP 138/68
[2020-04-20] MEDS: LATANOPROST 0.005% OPHTH SOLN 2.5 ML OU SCH (21:05)
[2020-04-20] MEDS: SIMVASTATIN 40 MG TAB PO SCH (21:05)
[2020-04-20] MEDS: FERROUS SULFATE 325MG TAB PO SCH (21:06)
[2020-04-21] VITALS: BP 117/62
[2020-04-21] MEDS: PERCOCET 5MG/325MG TAB PO PRN ×2 (02:15→09:56)
[2020-04-21 04:00] VITALS: BP 140/76
[2020-04-21] MEDS: ONDANSETRON 4 MG ORAL DISINTEGRATING TAB PO PRN (04:48)
[2020-04-21] MEDS: LEVOTHYROXINE 50MCG TABLET (0.05MG) PO SCH (04:48)
[2020-04-21 05:58] LABS: BASO % 0.3 % (0.0-1.0); EOS # 0.5 10^3/uL (0.0-0.5); EOS % 5.1 % (0.0-3.0); HEMATOCRIT 27.6 % (42.0-52.0); HEMOGLOBIN 9.2 g/dl (13.5-17.5); LYMPH # 0.8 10^3/uL (1.5-5.0); LYMPH % 8.4 % (24.0-44.0); MEAN CORPUSCULAR HEMOGLOBIN 32.3 pg (27.0-33.0); MEAN CORPUSCULAR HGB CONC 33.3 g/dl (32.0-36.5); MEAN CORPUSCULAR VOLUME 96.8 fl (80.0-96.0); MONO # 0.6 10^3/uL (0.0-0.8); MONO % 6.2 % (0.0-5.0); NEUTROPHILS # 7.1 10^3/uL (1.5-8.5); NEUTROPHILS % 79.7 % (36.0-66.0); RED BLOOD COUNT 2.85 10^6/uL (4.30-6.10); WHITE BLOOD COUNT 8.9 10^3/uL (4.0-10.0)
[2020-04-21 05:59] LABS: PLATELET COUNT, AUTOMATED 98 10^3/uL (150-450)
[2020-04-21 06:23] LABS: ALBUMIN 2.6 GM/DL (3.2-5.2); BILIRUBIN,TOTAL 0.5 MG/DL (0.2-1.0); CALCIUM LEVEL 8.5 MG/DL (8.8-10.2); CREATININE FOR GFR 4.61 MG/DL (0.70-1.30); GLOMERULAR FILTRATION RATE 13.5 (>42); POTASSIUM SERUM 5.3 MEQ/L (3.5-5.1); TOTAL PROTEIN 5.2 GM/DL (6.4-8.2)
[2020-04-21 08:00] VITALS: BP 132/67
[2020-04-21] MEDS: amLODIPine 5 MG TAB PO SCH ×2 (09:00→21:04)
[2020-04-21] MEDS: CALCIUM/VITAMIN D 500 MG TAB PO SCH (09:53)
[2020-04-21] MEDS: VENLAFAXINE **XR** 37.5 MG CAPSULE PO SCH (09:53)
[2020-04-21] MEDS: MULTIVITAMINS/MINERALS THERAP 1 TAB PO SCH (09:53)
[2020-04-21] MEDS: ASPIRIN 325 MG TAB PO SCH (09:53)
[2020-04-21] MEDS: HumaLOG INSULIN (NovoLOG) PER UNIT SC SCH ×4 (09:53→20:31)
[2020-04-21] MEDS: LACTOBACILLUS ACIDOPHILUS CAP (BACID) PO SCH (09:54)
[2020-04-21] MEDS: CALCITRIOL 0.25 MCG CAP (S0169) PO SCH (09:54)
[2020-04-21] MEDS: PANTOPRAZOLE 40MG TAB (PROTONIX) PO SCH (09:54)
[2020-04-21] MEDS: FEBUXOSTAT 40 MG TABLET (ULORIC) PO SCH (09:54)
[2020-04-21] MEDS: **hydrALAZINE** 50 MG TAB PO SCH ×3 (09:55→21:05)
[2020-04-21] MEDS: CARVedilol 12.5 MG TAB PO SCH ×2 (09:55→21:05)
[2020-04-21] MEDS ORDERED: SOD POLYSTYRENE SULFONATE SUSP 15 GM/60 ML UD PO ONE (10:00)
[2020-04-21 12:00] VITALS: BP_SYST 133; BP_SYST 95; BP_DIAS 74
[2020-04-21] MEDS ORDERED: PREVNAR 13 VACCINE SYRINGE IM ONE (12:00)
--- NOTE | 2020-04-21 12:02 | IPNPDOC ---
Text Note Date of Service The patient was seen on 04/21/20. NOTE Patient seen and examined at the bed side. States he feels much better . Lft arm wrapped in sling. PHYSICAL EXAMINATION: GENERAL: NAD, calm/cooperative, laying flat in bed HEENT: MMM, NC/AT, EOMI/PERRL CARDIOVASCULAR: RRR, no r/g, +s1/s2 RESPIRATORY: CTAB ABDOMINAL: Soft, non tender , +BS, no obvious organomegaly EXTREMITIES: no clubbing/cyanosis/edema, Lft arm wrapped in sling. NEUROLOGICAL: no obvious neurologic deficits PSYCHOLOGICAL: normal mood/flat affect LABORATORY DATA, IMAGING STUDIES, MICROBIOLOGY: Please see below. PROBLEMS: Elderly gentlemen , stays with daughter , had a mechanical fall and left shoulder fx for which ortho decided conservative management and prescibed a brace which is still awaited. Also has h/o Stage 4 CKD and had hyper K at presen tation treatment medically . He had a vein mapping done for prepration for starting the HD in the future as he is progressing to that. No indication of urgent HD and the currently being screened by [facility]U and awaiting brace ordered by ortho. 1. Progressive chronic kidney disease. He states that because of his chronic pain he takes 2 aleeves 3-4 days in week. Aviod nephro toxic drugs. I/O strict. Made 1500 cc in last 24 hours . Has a h/o BPH as well and had a post renal component as well but post voidd bladder scan is <15cc. Cont to monitor. PTH > 100. Also seems like his base line Cr might be higher as he already had vein maping and Dr Kaufman is his patient financial services specialist. K, volume, acid base status acceptable. No need of urgent HD in my opinion. 2. H/O renal CC . S/p left nephrectomy. 3. Fall. Mechanical. Xray of left shoulder reviewed. Currently ortho wants conservative management. No weightbearing and sling in place and awaiting the brace DISPOSITION: ARU screen under process and if he doesnt not qualify , he has home care and will need to go home. Also awaited is special shoulder brace. CM and Sw following with that. Luis Altamirano MD FACP VS,Edgard, I+O VS, Edgard, I+O Laboratory Tests 04/21/20 05:18 Vital Signs Date Time Temp Pulse Resp B/P (MAP) Pulse Ox O2 Delivery O2 Flow Rate FiO2 04/21/20 10:26 18 04/21/20 09:00 91 132/67 04/21/20 08:00 97.9 6 Room Air I&O- Last 24 Hours up to 6 AM 04/21/20 06:00 Intake Total 1380 ml Output Total 1050 ml Balance 330 ml ERIKA CASTLE MD Apr 21, 2020 12:02
[2020-04-21 16:00] VITALS: BP 147/72
[2020-04-21 20:00] VITALS: BP 158/79
[2020-04-21] MEDS: LATANOPROST 0.005% OPHTH SOLN 2.5 ML OU SCH (21:03)
[2020-04-21] MEDS: SIMVASTATIN 40 MG TAB PO SCH (21:04)
[2020-04-21] MEDS: FERROUS SULFATE 325MG TAB PO SCH (21:04)
[2020-04-22] VITALS (7 sets, daily range): BP systolic 132–200; BP diastolic 65–98
[2020-04-22] MEDS: ONDANSETRON 4 MG ORAL DISINTEGRATING TAB PO PRN (01:36)
[2020-04-22 05:12] LABS: BASO % 0.3 % (0.0-1.0); EOS # 0.4 10^3/uL (0.0-0.5); HEMATOCRIT 28.5 % (42.0-52.0); HEMOGLOBIN 9.5 g/dl (13.5-17.5); LYMPH # 0.8 10^3/uL (1.5-5.0); LYMPH % 8.8 % (24.0-44.0); MEAN CORPUSCULAR HEMOGLOBIN 32.3 pg (27.0-33.0); MEAN CORPUSCULAR HGB CONC 33.3 g/dl (32.0-36.5); MEAN CORPUSCULAR VOLUME 96.9 fl (80.0-96.0); MONO # 0.5 10^3/uL (0.0-0.8); MONO % 5.9 % (0.0-5.0); NEUTROPHILS # 7.2 10^3/uL (1.5-8.5); NEUTROPHILS % 80.7 % (36.0-66.0); PLATELET COUNT, AUTOMATED 104 10^3/uL (150-450); RED BLOOD COUNT 2.94 10^6/uL (4.30-6.10)
[2020-04-22 05:45] LABS: ALBUMIN 2.6 GM/DL (3.2-5.2); BILIRUBIN,TOTAL 0.4 MG/DL (0.2-1.0); CREATININE FOR GFR 4.83 MG/DL (0.70-1.30); GLOMERULAR FILTRATION RATE 12.8 (>42); POTASSIUM SERUM 5.3 MEQ/L (3.5-5.1); TOTAL PROTEIN 6.1 GM/DL (6.4-8.2)
[2020-04-22] MEDS: LEVOTHYROXINE 50MCG TABLET (0.05MG) PO SCH (05:52)
[2020-04-22] MEDS: ONDANSETRON 4MG/2ML VIAL IV PRN (06:23)
[2020-04-22] MEDS: VENLAFAXINE **XR** 37.5 MG CAPSULE PO SCH (08:18)
[2020-04-22] MEDS: HumaLOG INSULIN (NovoLOG) PER UNIT SC SCH ×4 (08:18→20:55)
[2020-04-22] MEDS: MULTIVITAMINS/MINERALS THERAP 1 TAB PO SCH (08:18)
[2020-04-22] MEDS: ASPIRIN 325 MG TAB PO SCH (08:18)
[2020-04-22] MEDS: FEBUXOSTAT 40 MG TABLET (ULORIC) PO SCH (08:18)
[2020-04-22] MEDS: CALCIUM/VITAMIN D 500 MG TAB PO SCH (08:18)
[2020-04-22] MEDS: LACTOBACILLUS ACIDOPHILUS CAP (BACID) PO SCH (08:19)
[2020-04-22] MEDS: amLODIPine 5 MG TAB PO SCH ×2 (08:19→21:00)
[2020-04-22] MEDS: **hydrALAZINE** 50 MG TAB PO SCH ×3 (08:19→21:42)
[2020-04-22] MEDS: PANTOPRAZOLE 40MG TAB (PROTONIX) PO SCH (08:20)
[2020-04-22] MEDS: CARVedilol 12.5 MG TAB PO SCH ×2 (08:20→21:42)
--- NOTE | 2020-04-22 11:58 | IPNPDOC ---
Text Note Date of Service The patient was seen on 04/22/20. NOTE Subjective. Pt feels well. Denies CP/SOB/palpitations. SBP recorded elevated 200 was an error. Manual BP SBP 150s. Left arm pain controlled. PHYSICAL EXAMINATION: PHYSICAL EXAMINATION: Vitals: (see below) General: No acute distress, laying comfortably in bed. HEENT: Moist mucous membranes. Neck: No JVD or lymphadenopathy Cardiac: RRR, No murmurs Pulm: Clear to auscultation b/l. No wheezing, rhonchi Abd: NT/ND + BS Ext: Trace edema BLE. No cyanosis. LUE in brace. Distal pulses intact. Cap refill <2 sec. No cyanosis. LABORATORY DATA, IMAGING STUDIES, MICROBIOLOGY: Please see below. A/P 69 y/o M mechanical fall and left shoulder fx for which ortho decided conserva tive management and prescribed a brace. Also has h/o Stage 4 CKD and had hyper K at presentation treatment medically . He had a vein mapping done for preparation for starting the HD in the future as he is progressing to that. No indication of urgent HD and the currently being screened by ARU and awaiting brace ordered by ortho. 1. Progressive chronic kidney disease. He states that because of his chronic pain he takes 2 aleeves 3-4 days in week. Aviod nephro toxic drugs. I/O strict. Made 1500 cc in last 24 hours . Has a h/o BPH as well and had a post renal component as well but post voidd bladder scan is <15cc. Cont to monitor. PTH > 100. 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 K, volume, acid base status accepta ble. No need of urgent HD in my opinion. 2. H/O renal CC . S/p left nephrectomy. 3. Fall. Mechanical. Xray of left shoulder reviewed. Currently ortho wants conservative management. No weightbearing and sling in place and awaiting the brace 4. HTN controlled. 5. Hypothyroidism on synthroid 6. H/o CAD - ASA/BB/statin 7. Chronic anemia - likely 2/2 CKD. stable. no bleeding. f/u outpt with pcp/ne phro. DISPOSITION: ARU screen; nursing notes he qualifies but they have no beds at this time. Cont PT in the meantime. VS,Fishbone, I+O VS, Fishbone, I+O Laboratory Tests 04/21/20 13:49 04/22/20 04:41 Vital Signs Date Time Temp Pulse Resp B/P (MAP) Pulse Ox O2 Delivery O2 Flow Rate FiO2 04/22/20 08:19 92 04/22/20 08:19 200/98 04/22/20 08:00 97.6 19 97 Room Air I&O- Last 24 Hours up to 6 AM 04/22/20 06:00 Intake Total 1165 ml Output Total 500 ml Balance 665 ml CRISTINA AUGUST MD Apr 22, 2020 11:58
[2020-04-22] MEDS: ACETAMINOPHEN TAB 650MG DOSE (2X325MG) PO PRN (21:40)
[2020-04-22] MEDS: FERROUS SULFATE 325MG TAB PO SCH (21:42)
[2020-04-22] MEDS: LATANOPROST 0.005% OPHTH SOLN 2.5 ML OU SCH (21:42)
[2020-04-22] MEDS: SIMVASTATIN 40 MG TAB PO SCH (21:42)
[2020-04-23] VITALS: BP 152/70
[2020-04-23 04:00] VITALS: BP 156/76
[2020-04-23] MEDS: ACETAMINOPHEN TAB 650MG DOSE (2X325MG) PO PRN ×2 (04:02→20:51)
[2020-04-23 05:31] LABS: BASO % 0.2 % (0.0-1.0); EOS # 0.4 10^3/uL (0.0-0.5); EOS % 5.1 % (0.0-3.0); HEMATOCRIT 27.7 % (42.0-52.0); HEMOGLOBIN 9.1 g/dl (13.5-17.5); LYMPH # 0.9 10^3/uL (1.5-5.0); LYMPH % 11.3 % (24.0-44.0); MEAN CORPUSCULAR HEMOGLOBIN 31.8 pg (27.0-33.0); MEAN CORPUSCULAR HGB CONC 32.9 g/dl (32.0-36.5); MEAN CORPUSCULAR VOLUME 96.9 fl (80.0-96.0); MONO # 0.6 10^3/uL (0.0-0.8); MONO % 7.3 % (0.0-5.0); NEUTROPHILS # 6.2 10^3/uL (1.5-8.5); NEUTROPHILS % 75.7 % (36.0-66.0); PLATELET COUNT, AUTOMATED 110 10^3/uL (150-450); RED BLOOD COUNT 2.86 10^6/uL (4.30-6.10); WHITE BLOOD COUNT 8.2 10^3/uL (4.0-10.0)
[2020-04-23] MEDS: LEVOTHYROXINE 50MCG TABLET (0.05MG) PO SCH (05:33)
[2020-04-23 05:41] LABS: ALBUMIN 2.3 GM/DL (3.2-5.2); BILIRUBIN,TOTAL 0.4 MG/DL (0.2-1.0); CALCIUM LEVEL 8.6 MG/DL (8.8-10.2); CREATININE FOR GFR 4.64 MG/DL (0.70-1.30); GLOMERULAR FILTRATION RATE 13.4 (>42); POTASSIUM SERUM 5.2 MEQ/L (3.5-5.1); TOTAL PROTEIN 5.6 GM/DL (6.4-8.2)
[2020-04-23 08:00] VITALS: BP 168/90
[2020-04-23] MEDS: HumaLOG INSULIN (NovoLOG) PER UNIT SC SCH ×4 (09:47→21:00)
[2020-04-23] MEDS: MULTIVITAMINS/MINERALS THERAP 1 TAB PO SCH (09:49)
[2020-04-23] MEDS: VENLAFAXINE **XR** 37.5 MG CAPSULE PO SCH (09:49)
[2020-04-23] MEDS: ASPIRIN 325 MG TAB PO SCH (09:49)
[2020-04-23] MEDS: PANTOPRAZOLE 40MG TAB (PROTONIX) PO SCH (09:49)
[2020-04-23] MEDS: CALCIUM/VITAMIN D 500 MG TAB PO SCH (09:49)
[2020-04-23] MEDS: FEBUXOSTAT 40 MG TABLET (ULORIC) PO SCH (09:49)
[2020-04-23] MEDS: LACTOBACILLUS ACIDOPHILUS CAP (BACID) PO SCH (09:49)
[2020-04-23] MEDS: **hydrALAZINE** 50 MG TAB PO SCH (09:50)
[2020-04-23] MEDS: CARVedilol 12.5 MG TAB PO SCH ×2 (09:52→20:45)
[2020-04-23] MEDS: amLODIPine 5 MG TAB PO SCH ×2 (09:53→20:45)
--- NOTE | 2020-04-23 11:14 | IPNPDOC ---
Text Note Date of Service The patient was seen on 04/23/20. NOTE Subjective. Pt feels well. Denies any complaints. PHYSICAL EXAMINATION: PHYSICAL EXAMINATION: Vitals: (see below) General: No acute distress, laying comfortably in bed. HEENT: Moist mucous membranes. Neck: No JVD or lymphadenopathy Cardiac: RRR, No murmurs Pulm: Clear to auscultation b/l. No wheezing, rhonchi Abd: NT/ND + BS Ext: Trace edema BLE. No cyanosis. LUE in brace. Distal pulses intact. Cap refill <2 sec. No cyanosis. LABORATORY DATA, IMAGING STUDIES, MICROBIOLOGY: Please see below. A/P 69 y/o M mechanical fall and left shoulder fx for which ortho decided conservative management and prescribed a brace. Also has h/o Stage 4 CKD and had hyper K at presentation treatment medically . He had a vein mapping done for preparation for starting the HD in the future as he is progressing to that. No indication of urgent HD and the currently being screened by ARU and awaiting brace ordered by ortho. 1. Progressive chronic kidney disease. He states that because of his chronic pain he takes 2 aleeves 3-4 days in week. Aviod nephro toxic drugs. I/O strict. Made 1500 cc in last 24 hours . Has a h/o BPH as well and had a post renal component as well but post voidd bladder scan is <15cc. Cont to monitor. PTH > 100. Also seems like his base line Cr might be higher as he already had vein maping and Dr Kaufman is his closed circuit screen watcher. K, volume, acid base status acceptable. No need of urgent HD in my opinion. 2. H/O renal CC . S/p left nephrectomy. 3. Fall. Mechanical. Xray of left shoulder reviewed. Currently ortho wants conservative management. No weightbearing and sling in place and awaiting the brace 4. HTN uncontrolled. cont current meds. increase hydralazine to 75mg po tid 5. Hypothyroidism on synthroid 6. H/o CAD - ASA/BB/statin 7. Chronic anemia - likely 2/2 CKD. stable. no bleeding. f/u outpt with pcp/nephro. DISPOSITION: ARU screen; nursing notes he qualifies but they have no beds at this time. Cont PT in the meantime. VS,Fishbone, I+O VS, Fishbone, I+O Laboratory Tests 04/23/20 04:57 Vital Signs Date Time Temp Pulse Resp B/P (MAP) Pulse Ox O2 Delivery O2 Flow Rate FiO2 04/23/20 09:52 84 04/23/20 09:50 168/90 04/23/20 08:00 97.2 19 98 Room Air I&O- Last 24 Hours up to 6 AM 04/23/20 05:59 Intake Total 960 ml Output Total 1225 ml Balance -265 ml CRISTINA AUGUST MD Apr 23, 2020 11:14
[2020-04-23 11:41] LABS: CHOLESTEROL RISK RATIO 2.161 (<5)
[2020-04-23 12:00] VITALS: BP 166/78
[2020-04-23 12:31] LABS: HEMOGLOBIN A1c 8.2 %
[2020-04-23] MEDS: PATIROMER SORBITEX CALCIUM 8.4 GM POWDER PACKET (VELTASSA) PO SCH (12:48)
[2020-04-23 16:00] VITALS: BP 152/80
[2020-04-23] MEDS: **hydrALAZINE HCL** 25 MG TAB PO SCH ×2 (17:45→20:44)
[2020-04-23 20:00] VITALS: BP 134/62
[2020-04-23] MEDS: SIMVASTATIN 40 MG TAB PO SCH (20:44)
[2020-04-23] MEDS: FERROUS SULFATE 325MG TAB PO SCH (20:45)
[2020-04-23] MEDS: LATANOPROST 0.005% OPHTH SOLN 2.5 ML OU SCH (20:45)
[2020-04-24] VITALS: BP 130/66
[2020-04-24 04:00] VITALS: BP 158/74
[2020-04-24 04:48] LABS: BASO % 0.6 % (0.0-1.0); EOS # 0.4 10^3/uL (0.0-0.5); EOS % 5.9 % (0.0-3.0); HEMATOCRIT 26.5 % (42.0-52.0); HEMOGLOBIN 8.9 g/dl (13.5-17.5); LYMPH # 0.8 10^3/uL (1.5-5.0); LYMPH % 11.1 % (24.0-44.0); MEAN CORPUSCULAR HEMOGLOBIN 32.4 pg (27.0-33.0); MEAN CORPUSCULAR HGB CONC 33.6 g/dl (32.0-36.5); MEAN CORPUSCULAR VOLUME 96.4 fl (80.0-96.0); MONO # 0.6 10^3/uL (0.0-0.8); MONO % 7.7 % (0.0-5.0); NEUTROPHILS # 5.4 10^3/uL (1.5-8.5); NEUTROPHILS % 74.1 % (36.0-66.0); PLATELET COUNT, AUTOMATED 126 10^3/uL (150-450); RED BLOOD COUNT 2.75 10^6/uL (4.30-6.10); WHITE BLOOD COUNT 7.2 10^3/uL (4.0-10.0)
[2020-04-24 05:20] LABS: ALBUMIN 2.4 GM/DL (3.2-5.2); BILIRUBIN,TOTAL 0.4 MG/DL (0.2-1.0); CALCIUM LEVEL 8.4 MG/DL (8.8-10.2); CREATININE FOR GFR 4.69 MG/DL (0.70-1.30); GLOMERULAR FILTRATION RATE 13.2 (>42); POTASSIUM SERUM 4.9 MEQ/L (3.5-5.1); TOTAL PROTEIN 5.2 GM/DL (6.4-8.2)
[2020-04-24] MEDS: LEVOTHYROXINE 50MCG TABLET (0.05MG) PO SCH (05:43)
[2020-04-24 08:00] VITALS: BP 150/72
[2020-04-24] MEDS: FEBUXOSTAT 40 MG TABLET (ULORIC) PO SCH (08:18)
[2020-04-24] MEDS: CALCIUM/VITAMIN D 500 MG TAB PO SCH (08:19)
[2020-04-24] MEDS: VENLAFAXINE **XR** 37.5 MG CAPSULE PO SCH (08:19)
[2020-04-24] MEDS: CARVedilol 12.5 MG TAB PO SCH ×2 (08:19→20:36)
[2020-04-24] MEDS: **hydrALAZINE HCL** 25 MG TAB PO SCH ×3 (08:20→20:37)
[2020-04-24] MEDS: LACTOBACILLUS ACIDOPHILUS CAP (BACID) PO SCH (08:20)
[2020-04-24] MEDS: ASPIRIN 325 MG TAB PO SCH (08:20)
[2020-04-24] MEDS: CALCITRIOL 0.25 MCG CAP (S0169) PO SCH (08:20)
[2020-04-24] MEDS: PANTOPRAZOLE 40MG TAB (PROTONIX) PO SCH (08:20)
[2020-04-24] MEDS: amLODIPine 5 MG TAB PO SCH ×2 (08:21→20:34)
[2020-04-24] MEDS: MULTIVITAMINS/MINERALS THERAP 1 TAB PO SCH (08:21)
[2020-04-24] MEDS: HumaLOG INSULIN (NovoLOG) PER UNIT SC SCH ×4 (08:22→20:35)
--- NOTE | 2020-04-24 09:57 | IPNPDOC ---
Text Note Date of Service The patient was seen on 04/24/20. NOTE Subjective. Pt denies any complaints. No CP/SOB/palpitations. PHYSICAL EXAMINATION: PHYSICAL EXAMINATION: Vitals: (see below) General: No acute distress, laying comfortably in bed. HEENT: Moist mucous membranes. Neck: No JVD or lymphadenopathy Cardiac: RRR, No murmurs Pulm: Clear to auscultation b/l. No wheezing, rhonchi Abd: NT/ND + BS Ext: Trace edema BLE. No cyanosis. LUE in brace. Distal pulses intact. Cap refill <2 sec. No cyanosis. LABORATORY DATA, IMAGING STUDIES, MICROBIOLOGY: Please see below. A/P 69 y/o M mechanical fall and left shoulder fx for which ortho decided conservative management and prescribed a brace. Also has h/o Stage 4 CKD and had hyper K at presentation treatment medically . He had a vein mapping done for preparation for starting the HD in the future as he is progressing to that. No indication of urgent HD and the currently being screened by ARU and awaiting brace ordered by ortho. 1. Progressive chronic kidney disease. He states that because of his chronic pain he takes 2 aleeves 3-4 days in week. Aviod nephro toxic drugs. I/O strict. Made 1500 cc in last 24 hours . Has a h/o BPH as well and had a post renal component as well but post voidd bladder scan is <15cc. Cont to monitor. PTH > 100. 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 K, volume, acid base status acceptable. - Discussed with Dr. Bedoya; Plan for perm cath today and HD. 2. H/O renal CC . S/p left nephrectomy. 3. Fall. Mechanical. Xray of left shoulder reviewed. Currently ortho wants conservative management. No weightbearing and sling in place and awaiting the brace 4. HTN uncontrolled. cont current meds. increase hydralazine to 75mg po tid 5. Hypothyroidism on synthroid 6. H/o CAD - ASA/BB/statin 7. Chronic anemia - likely 2/2 CKD. stable. no bleeding. f/u outpt with pcp/nephro. DISPOSITION: Perm cath today for HD. VS,Fishbone, I+O VS, Fishbone, I+O Laboratory Tests 04/24/20 03:45 Vital Signs Date Time Temp Pulse Resp B/P (MAP) Pulse Ox O2 Delivery O2 Flow Rate FiO2 04/24/20 08:19 89 155/78 04/24/20 04:00 98.4 18 98 Room Air I&O- Last 24 Hours up to 6 AM 04/24/20 06:00 Intake Total 2570 ml Output Total 800 ml Balance 1770 ml CRISTINA AUGUST MD Apr 24, 2020 09:57
[2020-04-24 10:29] LABS: HEPATITIS B SURFACE ANTIBODY NEGATIVE (POSITIVE)
[2020-04-24 10:38] LABS: HEPATITIS B SURFACE ANTIGEN NEGATIVE (NEGATIVE)
[2020-04-24] MEDS ORDERED: SLF 3 ML SYR IV PRN (10:45)
[2020-04-24 11:05] LABS: HEPATITIS C VIRUS ABY INDEX 0.3 INDEX (<0.8)
[2020-04-24 11:06] LABS: HEPATITIS B CORE ANTIBODY IGM NEGATIVE (NEGATIVE)
[2020-04-24] MEDS: ACETAMINOPHEN TAB 650MG DOSE (2X325MG) PO PRN ×2 (11:52→20:37)
[2020-04-24 12:00] VITALS: BP 137/63
[2020-04-24] MEDS: PATIROMER SORBITEX CALCIUM 8.4 GM POWDER PACKET (VELTASSA) PO SCH (12:00)
[2020-04-24] MEDS: SLF 3 ML SYR IV SCH ×2 (12:09→20:38)
[2020-04-24] MEDS ORDERED: diphenhydrAMINE 50MG/ML VIAL (J1200) As Ordered ONE (14:07)
[2020-04-24] MEDS ORDERED: fentaNYL 100 MCG/2 ML INJECTION (J3010) As Ordered ONE (14:08)
[2020-04-24] MEDS ORDERED: ceFAZolin 1GM VIAL (J0690 PER 500MG) As Ordered ONE (14:08)
[2020-04-24] MEDS ORDERED: MIDAZOLAM INJ 2MG/2ML VIAL (J2250 PER 1MG) As Ordered ONE (14:08)
[2020-04-24] MEDS ORDERED: LIDOCAINE 1% MDV 20ML VIAL As Ordered ONE (14:09)
[2020-04-24] MEDS ORDERED: IRON SUCROSE 100MG 5ML VIAL (J1756 PER 1MG) IV SCH (15:00)
[2020-04-24 18:40] VITALS: BP 159/76
[2020-04-24 20:00] VITALS: BP 120/49
[2020-04-24] MEDS: LATANOPROST 0.005% OPHTH SOLN 2.5 ML OU SCH (20:35)
[2020-04-24] MEDS: SIMVASTATIN 40 MG TAB PO SCH (20:36)
[2020-04-25] VITALS: BP 151/75
[2020-04-25 04:23] VITALS: BP 146/66
[2020-04-25 04:53] LABS: BASO % 0.4 % (0.0-1.0); EOS # 0.5 10^3/uL (0.0-0.5); HEMATOCRIT 25.9 % (42.0-52.0); HEMOGLOBIN 8.7 g/dl (13.5-17.5); LYMPH # 0.7 10^3/uL (1.5-5.0); MEAN CORPUSCULAR HEMOGLOBIN 32.7 pg (27.0-33.0); MEAN CORPUSCULAR HGB CONC 33.6 g/dl (32.0-36.5); MEAN CORPUSCULAR VOLUME 97.4 fl (80.0-96.0); MONO # 0.6 10^3/uL (0.0-0.8); MONO % 8.1 % (0.0-5.0); NEUTROPHILS # 5.9 10^3/uL (1.5-8.5); NEUTROPHILS % 75.5 % (36.0-66.0); PLATELET COUNT, AUTOMATED 118 10^3/uL (150-450); RED BLOOD COUNT 2.66 10^6/uL (4.30-6.10); WHITE BLOOD COUNT 7.8 10^3/uL (4.0-10.0)
[2020-04-25 05:17] LABS: ALBUMIN 2.3 GM/DL (3.2-5.2); BILIRUBIN,TOTAL 0.4 MG/DL (0.2-1.0); CALCIUM LEVEL 8.1 MG/DL (8.8-10.2); CREATININE FOR GFR 3.59 MG/DL (0.70-1.30); POTASSIUM SERUM 4.6 MEQ/L (3.5-5.1); TOTAL PROTEIN 5.1 GM/DL (6.4-8.2)
[2020-04-25] MEDS: LEVOTHYROXINE 50MCG TABLET (0.05MG) PO SCH (06:05)
[2020-04-25] MEDS: SLF 3 ML SYR IV SCH ×3 (06:05→21:20)
[2020-04-25 08:00] VITALS: BP 158/68
[2020-04-25] MEDS: FEBUXOSTAT 40 MG TABLET (ULORIC) PO SCH (08:09)
[2020-04-25] MEDS: CALCIUM/VITAMIN D 500 MG TAB PO SCH (08:09)
[2020-04-25] MEDS: HumaLOG INSULIN (NovoLOG) PER UNIT SC SCH ×4 (08:10→21:00)
[2020-04-25] MEDS: **hydrALAZINE HCL** 25 MG TAB PO SCH ×3 (08:11→21:20)
[2020-04-25] MEDS: CARVedilol 12.5 MG TAB PO SCH ×2 (08:13→21:20)
[2020-04-25] MEDS: LACTOBACILLUS ACIDOPHILUS CAP (BACID) PO SCH (08:14)
[2020-04-25] MEDS: PANTOPRAZOLE 40MG TAB (PROTONIX) PO SCH (08:15)
[2020-04-25] MEDS: VENLAFAXINE **XR** 37.5 MG CAPSULE PO SCH (08:15)
[2020-04-25] MEDS: amLODIPine 5 MG TAB PO SCH ×2 (08:15→21:00)
[2020-04-25] MEDS: MULTIVITAMINS/MINERALS THERAP 1 TAB PO SCH (08:16)
[2020-04-25 12:00] VITALS: BP 145/63
--- NOTE | 2020-04-25 12:09 | CR ---
DATE: 04/17/2020 CHIEF COMPLAINT: Left proximal humerus fracture. HISTORY OF PRESENT ILLNESS: A 69-year-old man who had a fall while at home. He fell off a walker. He normally uses a walker for sitting and sometimes for ambulating. He is right hand dominant. He had a fracture of his left proximal humerus five years ago; fixed by ORIF at [facility]. Of note; he apparently has a history of renal cell CA that metastasized to his lungs. He is on chemotherapy for that. They had to hold his chemotherapy for his left proximal humerus ORIF five years ago. PAST MEDICAL & SURGICAL HISTORY: As per the hospitalist notes, although he does have chronic kidney disease, left nephrectomy. MEDICATIONS & SOCIAL HISTORY: As per the hospitalist notes. He is here with his daughter. He is right hand dominant. PHYSICAL EXAMINATION: A 69-year-old man who appears in no acute distress. He has an elevated BMI of 34. He is a quite wide set individual. He has closed injury to his left upper extremity. He has varus alignment. There is some mild pain at the fracture site and no pain at the proximal humerus. There is an old deltoid pectoral incision that is well healed and free of complication. There is some mild swelling in the area. Normal sensation. Motor function accessory nerve plus median, radial and ulnar nerves as well as AIN/PIN. Strong radial pulse. IMAGING STUDIES: Radiographs were reviewed of the left humerus, this shows prior lateral short plate fixation of the proximal humerus. Just below that, there is a relatively transverse fracture, appears angulated to varus alignment, minimal shortening. No obvious lesions in the area. ASSESSMENT & PLAN: This 69-year-old man has proximal humerus fracture with varus alignment, status post prior plate fixation. According to the patient, he has metastatic renal CA. I explained the pros, cons, risks, benefits and nonsurgical versus surgical fixation of this to him. Nonsurgical treatment would be a sling initially and then eventually a Moran brace or a sugar-tong splint once he is more mobile and discharged from the ICU. Surgical treatment would be open reduction internal fixation with a long plate. This would likely necessitate removing the proximal plate and long plate fixation and/or dual plate fixation to bypass the stress riser that has been created. He would likely need advanced imaging of the upper extremity prior to proceeding with surgical fixation to rule out any metastatic renal cell carcinoma as this is noted to increase bleeding risk during surgery. I think that given his age and preexisting medical comorbidities, the risk of surgery would be unacceptably high, so after discussion with him and his daughter, we prefer to treat this non-surgically at least initially and see how this progresses over time. I would like follow him up as an outpatient and I will follow him while he is in the hospital. HANNAH
--- NOTE | 2020-04-25 12:16 | CR ---
DATE: 04/18/2020 REASON FOR CONSULTATION: Acute renal failure and chronic kidney disease. He also has hyperkalemia on admission. CONSULTATION REQUESTED BY: Gwendolyn Howard MD HISTORY OF PRESENT ILLNESS: Mr. Caban is a 69-year-old gentleman with known history of diabetes, hypertension, chronic kidney disease, history of kidney cancer in the past and gout. He has at baseline stage 4 chronic kidney disease with serum creatinine about 3.7 at the time of last visit in February. He is followed by Dr. Bedoya in the office. Patient fell and broke his left shoulder, due to which he is admitted. He was also found to have hyperkalemia and acute renal failure on admission. Nephrology consultation was requested and patient is seen this morning. PAST MEDICAL HISTORY: Significant for: 1. History of longstanding hypertension. 2. Type 2 diabetes. 3. History of renal cell carcinoma. 4. History of chronic kidney disease. 5. History of gout. 6. History of congestive heart failure. 7. Anemia. PAST SURGICAL HISTORY: Significant for: 1. Appendectomy. 2. Unilateral nephrectomy. 3. Open reduction of fractured arm. 4. Inguinal hernia repair. PERSONAL & SOCIAL HISTORY: Patient has no history of alcohol, tobacco or drug use. FAMILY HISTORY: Noncontributory. ALLERGIES: Patient has allergy to Allopurinol, Clindamycin, sulfa, and Prochlorperazine. MEDICATIONS: His home medications include: - aspirin 81 mg daily - bumetanide 2 mg daily - calcitriol 0.5 mcg three times a week - calcium carbonate 600 mg daily - Carvedilol 12.5 mg b.i.d. - Uloric 80 mg daily - ferrous sulfate 325 mg daily - insulin Levemir and Novolog - levothyroxine 50 mcg daily - magnesium oxide 400 mg daily - Protonix 40 mg daily - spironolactone 25 mg daily - Zofran as needed for nausea REVIEW OF SYSTEMS: Patient denies any fever or chills. He is awake and alert at this time. He reports that he fell from the stool and injured his left shoulder. Denies any loss of consciousness. Ears, nose and throat unremarkable. Cardiovascular system significant for chronic dyspnea on exertion and congestive heart failure. He denies any chest pain at present. Respiratory system negative for cough or hemoptysis. GI system negative for vomiting or diarrhea. system negative for dysuria or hematuria. He has history of prior nephrectomy and chronic kidney disease. He reports that he was already being scheduled for vein mapping for AV fistula, in anticipation for dialysis in near future. Musculoskeletal system significant for left shoulder fracture due to fall. Endocrine system significant for hypothyroidism and secondary hyperparathyroidism in addition to diabetes. Hematological system significant for anemia of chronic kidney disease. Psychosocial system negative for depression and anxiety. Neurological system negative for seizures or strokes. PHYSICAL EXAMINATION: Patient is awake and alert at the time of my visit today. Temperature 97.5 degrees Fahrenheit, heart rate 70 per minute, respiratory rate 20 per minute, blood pressure 155/69 mmHg and oxygen saturation 93% on room air. Head is atraumatic. His left is in the sling. Neck is supple and without JVD or thyroid enlargement. Heart sounds are regular. Lungs sound clear to auscultation. Abdomen is soft and nontender and bowel sounds are normal. Extremities without any cyanosis or clubbing. Left upper extremity is in a sling. Neurologically, he seems to be at his baseline mentation without focal deficit. LABORATORY DATA: Todays labs: WBC 8.2, hemoglobin 9.9, hematocrit 28.4, platelets 114,000. Sodium 139, potassium 4.9, CO2 24, BUN 69, creatinine 4.69, glucose 142 and calcium 8.0. PTH level 103.9. Yesterday potassium was 5.7 and creatinine 4.55. PROBLEMS: 1. Acute kidney injury superimposed on chronic kidney disease: Patient does have advanced stage 4 or early stage 5 of chronic kidney disease even at baseline. Last office note reports serum creatinine of 3.7. At present, his kidney function is only slightly worse than baseline. He does not have any uremic symptoms. No urgent need for dialysis at present. 2. Congestive heart failure: Currently his volume status seems reasonably well compensated. His I.V. fluid should be stopped now as his oral intake is adequate. Currently he is not receiving any diuretic. 3. Hyperkalemia: His hyperkalemia has already corrected and does not need any further intervention. 4. Hypertension: Blood pressure seems reasonably well controlled on current medications as he is getting Hydralazine 50 mg t.i.d. and Carvedilol 12.5 mg b.i.d. 5. Secondary Hyperparathyroidism: Patient will continue with Calcitriol as he was taking at home. Thank you for involving me in the care of Mr. Caban. I will him along with you. HANNAH
--- NOTE | 2020-04-25 12:24 | IPNPDOC ---
Date Seen The patient was seen on 04/25/20. Progress Note Progress note dictated A/P Mechanical Fall left shoulder nondisplaced fracture CK4-5 s/p permacath for OUTPT dialysis BPH s/p urine retention, resolved hyper K,resolved H/O renal CC . S/p left nephrectomy. HTN controlled Hypothyroidism H/o CAD Chronic anemia due to renal insufficiency -outpt dialysis per nephrology. permacath placed -awaiting PT clearance/ rehab placement. -outpt ortho fu. VS, I&O, 24H, Fishbone Vital Signs/I&O Vital Signs Date Time Temp Pulse Resp B/P (MAP) Pulse Ox O2 Delivery O2 Flow Rate FiO2 04/25/20 12:00 97.6 83 16 145/63 (90) 95 Room Air 04/24/20 15:22 2 I&O- Last 24 Hours up to 6 AM 04/25/20 06:00 Intake Total 610 ml Output Total 600 ml Balance 10 ml Laboratory Data 24H LABS Laboratory Tests 2 04/25/20 04:22: Immature Granulocyte % (Auto) 1.0, Neutrophils (%) (Auto) 75.5H, Lymphocytes (%) (Auto) 9.0L, Monocytes (%) (Auto) 8.1H, Eosinophils (%) (Auto) 6.0H, Basophils (%) (Auto) 0.4, Neutrophils # (Auto) 5.9, Lymphocytes # (Auto) 0.7L, Monocytes # (Auto) 0.6, Eosinophils # (Auto) 0.5, Basophils # (Auto) 0.0, Nucleated Red Blood Cells % (auto) 0.0, Anion Gap 6L, Glomerular Filtration Rate 18.0L, Calcium Level 8.1L, Total Bilirubin 0.4, Aspartate Amino Transf (AST/SGOT) 34, Alanine Aminotransferase (ALT/SGPT) 39, Alkaline Phosphatase 243H, Total Protein 5.1L, Albumin 2.3L, Albumin/Globulin Ratio 0.8 CBC/BMP Laboratory Tests 04/25/20 04:22 KYLAH NAIK MD Apr 25, 2020 12:24
--- NOTE | 2020-04-25 15:26 | IPN ---
DATE: 04/24/2020 SUBJECTIVE: Patient is seen and examined at the bedside today morning. He is afebrile and hemodynamically stable. He denies any active complaints. There is no significant improvement in the renal function. Creatinine remains high. I discussed hemodialysis again with the patient and he agrees to start hemodialysis. Patient was talking to his daughter on the phone and I explained initiation of hemodialysis with his daughter as well, and she also agrees to start dialysis on the patient while patient is in the hospital. I requested radiology department to place a Permacath and patient is going to start hemodialysis first session after placement of Permacath in radiology today. OBJECTIVE: Temperature 98.3 degrees Fahrenheit, blood pressure 137/63, pulse 89, respiratory rate 18, saturating 96% on room air. Intact and output: There is no urine output recorded today, however, yesterday he had 1.5 liter urine output. Weight in the bed scale is 120.9 kg. PHYSICAL EXAMINATION: General: Patient is awake, alert and oriented x3, lying in bed in no apparent distress. Head and Neck: Extraocular muscles intact, pupils equally round and reactive to light. Mucous membranes are moist. Neck supple. No JVD. Cardiac: S1, S2, regular rate. No murmur, rub or gallop. No edema of the bilateral lower extremities. Respiratory: Chest is clear to auscultation bilaterally. Bilateral equal air entry. No rales or rhonchi. Abdomen: Soft, obese, positive bowel sounds. Old surgical scar from previous nephrectomy. Otherwise no organomegaly was noted. Musculoskeletal: No clubbing or cyanosis. Pulses are 2+. He has a brace on the left shoulder because of recent fracture. KIER DRIER: No focal deficit at this time. LABORATORY REVIEW: CBC showed WBC 7.2, hemoglobin 8.9, platelets 126,000. BMP showed sodium 139, potassium 4.9, chloride 108, bicarb 25, BUN 82, creatinine 4.9 with a GFR of around 13. Calcium 8.4. Iron 39. Transferrin saturation 22%. Ferritin is 116. Albumin 2.4. CURRENT INPATIENT MEDICATIONS: Patient's medications were all reviewed by myself. I have stopped his weekly Aranesp and changed his Aranesp dose to 200 mcg I.V. with dialysis to be started with the next dialysis session. No other change in her medications today as compared with yesterday. ASSESSMENT AND PLAN: 1. Acute kidney injury superimposed on chronic kidney disease stage 4: Patient has solitary functioning kidney function, history of unilateral nephrectomy because of renal cell carcinoma. He has approached end-stage renal disease. He agrees to start dialysis. He will get a tunneled dialysis catheter placement and two hours of first dialysis session today. 2. Hyperkalemia: It is controlled with Veltassa. I am going to stop Veltassa now. Further his potassium will be controlled with hemodialysis sessions. 3. Anemia and end-stage renal disease and iron deficiency: Patient is going to get Aranesp with dialysis. I am also going to add Venofer with dialysis. 4. Hypertension with hypertensive heart disease: Continue current dose of Amlodipine and Carvedilol. Further optimization of fluid status with dialysis will help improve his blood pressures as well. Continue current dose of Hydralazine 75 mg p.o. three times a day. 5. Chronic gout secondary to chronic kidney disease: Continue current dose of Uloric 80 mg p.o. daily. DISPOSITION: Patient will need placement at dialysis center [facility] for outpatient basis. [facility]
[2020-04-25 17:41] VITALS: BP 125/58
--- NOTE | 2020-04-25 18:07 | IPN ---
DATE: 04/25/2020 SUBJECTIVE: Patient seen and examined at the bedside. Chart has been reviewed. He denies any chest pain, pressure, or tightness, shortness of breath. No other issues per nursing overnight. Says that his pain in the shoulder is persistent at 2/10 on a pain scale with a little help from morphine, currently a 6/10. OBJECTIVE: PHYSICAL EXAMINATION: VITAL SIGNS: Temperature 97.6, pulse 83, respiratory rate 16, blood pressure 145/63, 95% on room air. Input 790, output 600. Current weight is 120.9 yesterday, 121.8 today. GENERAL: Awake, alert, oriented to person, place, and time. No respiratory distress or conversational dyspnea. No jugular venous distention (JVD) or thyromegaly. No cervical lymphadenopathy. HEART: S1, S2, sinus rhythm. No murmurs, rubs, or gallops. LUNGS: Clear to auscultation. No wheezes, rales, or rhonchi. Air entry is equal bilaterally. ABDOMEN: Soft, nontender, nondistended. Positive bowel sounds. Obese abdomen. EXTREMITIES: Trace 1+ pitting edema. Left upper extremity is in a brace. Patient has multiple ecchymotic areas in the right upper extremity. LABORATORY DATA: White count 7.8, hemoglobin 8.7, hematocrit 25.9, platelet count 118, previous platelet count of 126. Sodium 137, potassium 4.6, chloride 106, bicarbonate 25, BUN 61, creatinine 3.59, glucose 207, calcium 8.1. Alkaline phosphatase 243. ASSESSMENT AND PLAN: This is a 69-year-old male, status post mechanical fall and left shoulder fracture, undergoing conservative management. Outpatient followup at orthopedics. Currently in a brace. Had chronic kidney disease (CKD), stage III, and hyperkalemia on presentation. Had vein mapping for dialysis in the future. Awaiting rehabilitation placement. IMPRESSION: 1. Mechanical fall, status post left shoulder fracture. Currently with a brace. Outpatient followup with orthopedic surgery. Awaiting rehabilitation placement. 2. Chronic kidney disease, IV-V. Patient had been taking Aleve three to four times a week. 3. History of benign prostatic hypertrophy. Venous mapping had been done. Perm-A-Cath had been placed. Outpatient dialysis. 4. History of renal cell carcinoma, status post left nephrectomy, requiring dialysis as outpatient. 5. Hypertension, on hydralazine 75 three times a day with better control. 6. Hypothyroidism, on chronic Synthroid. 7. Anemia due to renal failure. Not requiring red blood cell transfusion and asymptomatic. 8. History of coronary artery disease (CAD), on aspirin, statins, and beta onel. 9. Hypothyroidism, on Synthroid. DISPOSITION: Awaiting rehabilitation. Once medically stable, outpatient dialysis. MTDD
[2020-04-25 20:00] VITALS: BP 126/89
[2020-04-25] MEDS: SIMVASTATIN 40 MG TAB PO SCH (21:19)
[2020-04-25] MEDS: LATANOPROST 0.005% OPHTH SOLN 2.5 ML OU SCH (21:20)
[2020-04-26] VITALS: BP 178/76
[2020-04-26 04:00] VITALS: BP 142/64
[2020-04-26] MEDS: SLF 3 ML SYR IV SCH ×3 (05:25→21:49)
[2020-04-26] MEDS: LEVOTHYROXINE 50MCG TABLET (0.05MG) PO SCH (05:25)
[2020-04-26 08:00] VITALS: BP 166/79
[2020-04-26] MEDS ORDERED: DARBEPOETIN 200MCG/0.4ML *DIALYSIS* SYRINGE (J0882 PER 1MCG) IV SCH (08:00)
[2020-04-26] MEDS: FEBUXOSTAT 40 MG TABLET (ULORIC) PO SCH (08:26)
[2020-04-26] MEDS: **hydrALAZINE HCL** 25 MG TAB PO SCH ×3 (08:27→21:48)
[2020-04-26] MEDS: CALCIUM/VITAMIN D 500 MG TAB PO SCH (08:27)
[2020-04-26] MEDS: CALCITRIOL 0.25 MCG CAP (S0169) PO SCH (08:28)
[2020-04-26] MEDS: LACTOBACILLUS ACIDOPHILUS CAP (BACID) PO SCH (08:29)
[2020-04-26] MEDS: MULTIVITAMINS/MINERALS THERAP 1 TAB PO SCH (08:29)
[2020-04-26] MEDS: ASPIRIN 325 MG TAB PO SCH (08:29)
[2020-04-26] MEDS: HumaLOG INSULIN (NovoLOG) PER UNIT SC SCH ×4 (08:29→20:32)
[2020-04-26] MEDS: PANTOPRAZOLE 40MG TAB (PROTONIX) PO SCH (08:30)
[2020-04-26] MEDS: CARVedilol 12.5 MG TAB PO SCH ×2 (08:31→21:49)
[2020-04-26] MEDS: amLODIPine 5 MG TAB PO SCH ×2 (08:31→21:49)
[2020-04-26] MEDS: VENLAFAXINE **XR** 37.5 MG CAPSULE PO SCH (08:37)
[2020-04-26 08:55] LABS: HEMATOCRIT 26.4 % (42.0-52.0); HEMOGLOBIN 8.9 g/dl (13.5-17.5); MEAN CORPUSCULAR HEMOGLOBIN 32.5 pg (27.0-33.0); MEAN CORPUSCULAR HGB CONC 33.7 g/dl (32.0-36.5); MEAN CORPUSCULAR VOLUME 96.4 fl (80.0-96.0); PLATELET COUNT, AUTOMATED 138 10^3/uL (150-450); RED BLOOD COUNT 2.74 10^6/uL (4.30-6.10); WHITE BLOOD COUNT 8.4 10^3/uL (4.0-10.0)
[2020-04-26 09:19] LABS: CALCIUM LEVEL 8.3 MG/DL (8.8-10.2); CREATININE FOR GFR 3.15 MG/DL (0.70-1.30); GLOMERULAR FILTRATION RATE 20.9 (>42); MAGNESIUM LEVEL 1.8 MG/DL (1.8-2.4); POTASSIUM SERUM 4.1 MEQ/L (3.5-5.1)
--- NOTE | 2020-04-26 09:31 | IPN ---
DATE: 04/25/2020 SUBJECTIVE: Patient was seen and examined at the bedside today morning. He got a right IJ tunneled hemodialysis catheter placed yesterday. He got two hours of dialysis yesterday, which he tolerated well. Patient is otherwise afebrile and hemodynamically stable. He does not have any complaints. OBJECTIVE: Vital signs: Temperature 97.6 degrees Fahrenheit, blood pressure 145/63, pulse 83, respiratory rate 16, saturating 95% on room air. Intake and output: Urine output is not recorded. Ultrafiltration with hemodialysis was 250 mL yesterday. Weight in the bed scale is 121.8 kg. PHYSICAL EXAMINATION: General: Patient is awake, alert and oriented x3, lying in bed in no apparent distress. Head and Neck: Extraocular muscles intact, pupils equally round and reactive to light. Mucous membranes are moist. Neck supple. He has a right IJ tunneled hemodialysis catheter. Cardiac: S1, S2, regular rate. Very trace edema of the ankles is noted. Respiratory: Chest is clear to auscultation bilaterally. Bilateral equal air entry. No rales or rhonchi. Abdomen: Soft, obese, positive bowel sounds. Genitourinary: Bladder is not palpable. Musculoskeletal: No clubbing or cyanosis. Pulses are 2+. He has a brace on the left shoulder because of recent fracture. 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 LABORATORY REVIEW: CBC showed WBC 7.8, hemoglobin 8.7, platelets 118,000. BMP showed sodium 137, potassium 4.6, chloride 106, bicarb 25, BUN 61, creatinine 3.5, calcium 8.1. Albumin 2.3. CURRENT INPATIENT MEDICATIONS: Patient's medications were all reviewed by myself. There is no significant change in his medications today as compared with yesterday. ASSESSMENT AND PLAN: 1. End-stage renal disease: Patient got a tunneled dialysis catheter yesterday. He was started on hemodialysis. Another session of hemodialysis will be done today afternoon for three hours with UF bolus of 500 mL. 2. Hypertension: Continue current dose of Amlodipine 5 mg p.o. twice a day with Coreg 12.5 mg p.o. twice a day and Hydralazine 75 mg p.o. three times a day. I believe with further optimization of his fluid status, he would require less antihypertensive regimen. 3. Anemia and end-stage renal disease: Patient has already been started on Aranesp and Venofer with dialysis. Hemoglobin level is stable and is expected to improve within the acceptable range. 4. Hyperkalemia: It has improved now. Patient is no longer requiring Veltassa. Patient's potassium is controlled with hemodialysis now. 5. Chronic gout secondary to chronic kidney disease: Continue current dose of Uloric 80 mg p.o. daily. 6. Secondary hyperparathyroidism: Continue current dose of Calcitriol 0.5 mcg p.o. Friday, Friday, Friday. DISPOSITION: Patient will need placement for outpatient dialysis three times a week at [facility]. [facility]
--- NOTE | 2020-04-26 09:35 | REPVR ---
PROCEDURE INFORMATION: Exam: US Duplex Left Upper Extremity Veins, Limited Exam date and time: 04/26/2020 9:17 AM Age: 69 years old Clinical indication: Swelling (edema) of limb; Upper extremity, left; Additional info: Left arm swelling R/O dvt TECHNIQUE: Imaging protocol: Real-time Duplex ultrasound of the Left Upper Extremity with 2-D kennedy scale, color Doppler flow and spectral waveform analysis with image documentation. Limited exam focused on the left upper extremity veins. COMPARISON: No relevant prior studies available. FINDINGS: Left deep veins: Unremarkable. Axillary and brachial veins are patent throughout without thrombus. Normal Doppler waveforms. Normal compressibility and/or augmentation response. Visualized internal jugular and subclavian veins are patent. Left superficial veins: Unremarkable. Visualized cephalic and basilic veins are patent without thrombus. Soft tissues: Unremarkable. IMPRESSION: No evidence of deep vein thrombosis. Electronically signed by: Mike Peña On 04/26/2020 09:35:42 AM
[2020-04-26 16:00] VITALS: BP 162/70
--- NOTE | 2020-04-26 17:02 | IPNPDOC ---
Text Note Date of Service The patient was seen on 04/26/20. NOTE SUBJECTIVE: Patient was seen and examined today at bedside. He states he is feeling well. He tolerated the three hour dialysis session yesterday without any concerns. OBJECTIVE: PHYSICAL EXAMINATION: VITAL SIGNS: Please see below. GENERAL: Alert, sitting up comfortably in a chair, in no acute distress HEENT: NC, AT, moist mucous membranes, right IJ hemodialysis catheter present. CARDIOVASCULAR: RRR, normal S1 and S2 RESPIRATORY: CTAB, no wheezing, rhonchi, or rales ABDOMINAL: Soft, nontender, nondistended EXTREMITIES: trace bilateral lower extremity edema noted. Hard brace over the left shoulder due to recent fracture. ASSESSMENT/PLAN: 69 year old male with ESRD who was admitted with a left shoulder fracture after a mechanical fall 1. ESRD. Patient got a tunneled dialysis catheter and was started on hemodialysis. He will need to be scheduled for outpatient hemodialysis prior to discharge, three times a week at [facility]. 2. Hypertension. Well controlled. Continue current dose of Amlodipine 5 mg twice a day, Coreg 12.5 mg twice a day, and Hydralazine 75 mg three times a day. 3. Anemia and end-stage renal disease. Patient has already been started on Aranesp and Venofer with dialysis. Hemoglobin level is stable at 8.9. 4. Hyperkalemia. Improved, patient is status post treatment with Veltassa. Patient's potassium is controlled with hemodialysis now. 5. Chronic gout secondary to chronic kidney disease. Continue Uloric 80 mg daily. 6. Secondary hyperparathyroidism. PTH is more than adequately suppressed at 103.9. Goal is PTH less than 150. Decrease dose of Calcitriol to 0.25 mcg Friday, Friday, Friday. Thank you for the consultation on this patient, we will continue to follow along. VS,Fishbone, I+O VS, Fishbone, I+O Laboratory Tests 04/26/20 08:31 Vital Signs Date Time Temp Pulse Resp B/P (MAP) Pulse Ox O2 Delivery O2 Flow Rate FiO2 04/26/20 16:49 162/70 04/26/20 08:00 98.4 97 18 96 Room Air 04/24/20 15:22 2 I&O- Last 24 Hours up to 6 AM 04/26/20 05:59 Intake Total 120 ml Output Total 500 ml Balance -380 ml GME ATTESTATION GME ATTESTATION My faculty preceptor for this patient encounter was physically present during the encounter and was fully available. All aspects of the patient interview, examination, medical decision making process, and medical care plan development were reviewed and approved by the faculty preceptor. The faculty preceptor is aw are and concurs with the plan as stated in the body of this note and will attest to such by his/her cosignature. ATTENDING NOTE ESRD h/o Metastatic Renal Cell Ca s/p Lt nephrectomy Anemia in ESRD Fall and Lt shoulder fracture. Cont HD TTS. Schedule outpatient HD. Dc to Rehab after availability of HD chair OFELIA REEVES D.O. Apr 26, 2020 17:02 JUANA CORTEZ MD Apr 26, 2020 20:42
[2020-04-26 20:00] VITALS: BP 154/85
[2020-04-26] MEDS: LATANOPROST 0.005% OPHTH SOLN 2.5 ML OU SCH (21:48)
[2020-04-26] MEDS: SIMVASTATIN 40 MG TAB PO SCH (21:49)
[2020-04-27 00:28] VITALS: BP 142/69
[2020-04-27 02:00] VITALS: BP 127/65
[2020-04-27] MEDS: MULTIVITAMINS/MINERALS THERAP 1 TAB PO SCH (05:40)
[2020-04-27] MEDS: CALCIUM/VITAMIN D 500 MG TAB PO SCH (05:41)
[2020-04-27] MEDS: amLODIPine 5 MG TAB PO SCH (05:41)
[2020-04-27] MEDS: LEVOTHYROXINE 50MCG TABLET (0.05MG) PO SCH (05:42)
[2020-04-27] MEDS: FEBUXOSTAT 40 MG TABLET (ULORIC) PO SCH (05:42)
[2020-04-27] MEDS: ASPIRIN 325 MG TAB PO SCH (05:42)
[2020-04-27] MEDS: PANTOPRAZOLE 40MG TAB (PROTONIX) PO SCH (05:42)
[2020-04-27] MEDS: LACTOBACILLUS ACIDOPHILUS CAP (BACID) PO SCH (05:43)
[2020-04-27] MEDS: CARVedilol 12.5 MG TAB PO SCH (05:43)
[2020-04-27] MEDS: SLF 3 ML SYR IV SCH ×2 (05:44→14:00)
[2020-04-27] MEDS: **hydrALAZINE HCL** 25 MG TAB PO SCH (05:44)
[2020-04-27] MEDS: VENLAFAXINE **XR** 37.5 MG CAPSULE PO SCH (05:44)
[2020-04-27 06:00] VITALS: BP 124/88
[2020-04-27 06:23] LABS: CALCIUM LEVEL 8.2 MG/DL (8.8-10.2); CREATININE FOR GFR 3.68 MG/DL (0.70-1.30); GLOMERULAR FILTRATION RATE 17.5 (>42); POTASSIUM SERUM 3.8 MEQ/L (3.5-5.1)
[2020-04-27] MEDS: HumaLOG INSULIN (NovoLOG) PER UNIT SC SCH ×3 (08:13→18:05)
--- NOTE | 2020-04-27 10:58 | IPN ---
DATE: 04/26/2020 SUBJECTIVE: Patient is seen and examined at the bedside, chart has been reviewed. No other issues overnight. The patient is awaiting acceptance to [facility]. He is currently receiving dialysis during the inpatient period. He denies any shortness of breath, chest pain, pressure or tightness. No dizziness or lightheadedness. PHYSICAL EXAMINATION: VITALS: Temperature 98.4, pulse 97, respiratory rate 18, blood pressure 142/64, 96% on room air. GENERAL: Awake, alert and oriented to person, place and time. Answers questions appropriately. Right IJ hemodialysis catheter, clean and dry without any erythema or tenderness. LUNGS: Clear to auscultation. No wheezing, rales or rhonchi. HEART: S1 and S2, sinus rhythm. ABDOMEN: Soft, nontender and nondistended. Positive bowel sounds. EXTREMITIES: No cyanosis or clubbing. Patient has a left shoulder brace with swelling of the left arm and hand. LABORATORY DATA: White count 8.4, hemoglobin 8.9, hematocrit 26, platelet count 138,000, sodium 140, potassium 4.1, chloride 104, bicarbonate 26, BUN 42, creatinine 3.15, glucose of 216. ASSESSMENT AND PLAN: 1. This is a 77-year-old male status post mechanical fall, left shoulder fracture, on conservative management, outpatient follow-up with orthopedic surgery with CKD Stage III, hyperkalemia on presentation, had right IJ tunneled catheter placed and venous mapping. Impression: Mechanical fall with left shoulder fracture awaiting rehab placement, outpatient follow-up with orthopedic surgery, currently with a brace. 2. Left upper extremity edema, rule out DVT. Obtain venous Dopplers of the left upper extremity. 3. Chronic kidney disease Stage IV to V, status post right IJ hemodialysis catheter with vein mapping, dialysis in the future. History of BPH. 4. History of renal cell CA status post left nephrectomy requiring dialysis as an outpatient. 5. Hypertension, on Hydralazine t.i.d. with better control. 6. Hypothyroidism, on chronic Synthroid. 7. Anemia due to renal failure. No acute indication for RBC transfusion. 8. CAD on aspirin, statin and beta onel. MTDD
[2020-04-27] MEDS ORDERED: PERCOCET PO (13:53)
[2020-04-27] MEDS ORDERED: AMLO1TAB24 PO (13:53)
[2020-04-27 14:00] VITALS: BP 152/80
[2020-04-27 15:28] VITALS: BP 132/65
[2020-04-27] MEDS: ACETAMINOPHEN TAB 650MG DOSE (2X325MG) PO PRN (15:46)
[2020-04-27] MEDS ORDERED: FLUBLOK(EGG FREE)(QUAD)INFLUENZA VACC 0.5ML SYRINGE 18YRS & OLDER IM ONE (16:00)
[2020-04-27] MEDS ORDERED: **hydrALAZINE** 50 MG TAB PO SCH (16:00)
[2020-04-28] MEDS ORDERED: CALCITRIOL 0.25 MCG CAP (S0169) PO SCH (09:00)
--- NOTE | 2020-04-28 12:00 | POST-OPPD ---
Postoperative Procedure Note Date Of Procedure: Apr 24, 2020 Time Of Procedure: 16:00 Full op note IR PermCath placement PermCath placement under fluoroscopic and ultrasound guidance Ultrasound of the right neck Clinical Information:Renal failure. Needs long-term dialysis. Physician: Dr. Becker Procedure: The patient was advised of the benefits, risks, and alternatives of the procedure and informed consent was obtained. A time out was performed with verification of the patient's name, MRN, site of procedure, and type of procedure to be performed. The patient was positioned in the supine position on the angiographic table. The site was prepped and draped in the usual sterile fashion. Moderate sedation was performed by the physician including the presence of an independent trained observer that assisted in monitoring the patient's level of consciousness and physiological status. Following the administration of fentanyl and Versed the physician spent 45 minutes of continuous [id number] time with the patient. Ultrasound of the neck reveals a patent and compressible right internal jugular vein. A geological sample tester radiograph reveals no gross abnormality. The neck and anterior chest wall were anesthetized with lidocaine. The right internal jugular vein was accessed under ultrasound guidance, using a microintroducer needle via a lateral approach. A 0.018 cope wire was advanced into the superior vena cava, the needle was removed and a microintroducer sheath was placed. An Amplatz wire was then passed into the inferior vena cava. Incisions at the internal jugular access site and anterior chest wall were made using a scalpel. A 19 cm palindrome catheter was inserted through subcutaneous tissues of the chest wall with a tunneling device. The microintroducer sheath was removed and the internal jugular puncture site was upsized with a dilator. A peel-away sheath was placed over the wire and into the superior vena cava. The wire and insert were removed. The catheter was passed into the internal jugular vein via the sheath. The peel away sheath was then removed. The catheter tip was positioned at the right atrium. The puncture site was closed with 4-0 Monocryl. The catheter was secured in place using a 2-0 Prolene. Both sites were cleansed and sterile dressings were applied. At the conclusion of the procedure, the ports of the catheter aspirated and flushed freely. The catheter was locked with high-dose heparin. The patient tolerated the procedure well and was returned to the PRU in stable condition. EBL:Less than 5 mL Complications:None Conclusion: Successful placement of a 19 cm right-sided palindrome PermCath. The catheter is ready for immediate use. MELISSA BECKER MD Apr 28, 2020 12:00
--- NOTE | 2020-04-28 12:11 | IPN ---
DATE: 04/27/2020 SUBJECTIVE: Patient was seen and examined today morning during hemodialysis. He is afebrile, hemodynamically stable, tolerating hemodialysis procedure well. He denies any active complaints at this time. OBJECTIVE: Vital signs: Temperature 97.9 degrees Fahrenheit, blood pressure 124/88, pulse 95, respiratory rate 16, saturating 95% on room air. Intake and output: Urine output recorded as 625 mL. Weight in the bed scale was 121 kg yesterday. PHYSICAL EXAMINATION: General: Patient is awake, alert and oriented x3, lying in bed in no apparent distress. Head and Neck: Extraocular muscles intact, pupils equally round and reactive to light. Mucous membranes are moist. Neck supple. He has a right IJ tunneled hemodialysis catheter being used for dialysis. Cardiovascular: S1, S2, regular rate. No edema of the bilateral lower extremities. Respiratory: Chest is clear to auscultation bilaterally. Bilateral equal air entry. No rales or rhonchi. Abdomen: Soft, positive bowel sounds, nontender. No organomegaly. Musculoskeletal: No clubbing or cyanosis. Pulses are 2+. CUSTOMER ACCOUNT REPRESENTATIVE: No focal deficit. Power 5/5 in all extremities. LABORATORY REVIEW: CBC is from yesterday. BMP is from yesterday with potassium 3.8. The rest of the labs were all reviewed by myself. CURRENT INPATIENT MEDICATIONS: Patient's medications were all reviewed by myself. No significant change in the medications today as compared with yesterday. ASSESSMENT AND PLAN: 1. End-stage renal disease: Patient is being dialyzed today. I talked to the dialysis center, he has a Friday, Friday, Friday spot at 4:00 p.m. as an outpatient. 2. Hypertension: Blood pressure is controlled. Continue current dose of Coreg and Amlodipine. Hydralazine dose is going to be decreased. Blood pressure is getting better with improving volume status. 3. Anemia and end-state renal disease: Hemoglobin level is slowly improving with administration of Aranesp and Venofer. DISPOSITION: Patient is okay to be discharged from a nephrology standpoint after dialysis today. [facility]
--- NOTE | 2020-04-28 12:13 | IPN ---
DATE: 04/27/2020 SUBJECTIVE: The patient was seen and examined at the bedside. Chart has been reviewed. The patient has not other new complaints, awaiting rehab placement and dialysis to be done as an outpatient. No other issues per nursing overnight. OBJECTIVE: PHYSICAL EXAMINATION: VITAL SIGNS: Temperature 97.9, pulse 95, respiratory rate 16, blood pressure 124/80, oxygen saturation 95% on room air. GENERAL APPEARANCE: Awake, alert, oriented to person, place and time, answering questions appropriately. HEENT: Right IJ dialysis catheter without erythema or tenderness. No induration. Moist mucous membranes. NECK: No JVD or thyromegaly. HEART: S1, S2, sinus rhythm. LUNGS: Clear to auscultation without rales, rhonchi or wheezes. ABDOMEN: Soft, nontender, nondistended, positive bowel sounds. EXTREMITIES: Left shoulder in a brace. Trace lower extremity edema. LABORATORY DATA: 04/26/2020 - white count 8.4, hemoglobin 8.9, hematocrit 26, platelet count 138. Sodium 140, potassium 3.8, chloride 105, bicarbonate 27, BUN 45, creatinine 2.68, glucose of 186. ASSESSMENT AND PLAN: This is a 69-year-old male status post mechanical fall, left shoulder fracture on conservative management with outpatient follow up with Orthopedic Surgery, with known history of chronic kidney disease stage 3, was hyperkalemic on presentation and was new to hemodialysis during this admission. The patient had a right IJ tunneled catheter placed, status post venous mapping and underwent dialysis which was well tolerated. The patient is currently awaiting rehab placement. He had complaint of left upper extremity edema, evaluated with ultrasound which was negative for DVT. IMPRESSION: 1. Left renalcell carcinoma status post nephrectomy. 2. Hypertension. 3. Hypothyroidism. 4. Anemia secondary to renal failure. 5. Fall with a subsequent left shoulder fracture. 6. Coronary artery disease. 7. Anemia due to renal failure of chronic disease, hypothyroidism and hypertension. PLAN: The patient is continued on all present management, awaiting rehab placement and outpatient dialysis to be arranged. [facility]
--- NOTE | 2020-05-09 11:07 | ECGEPIP ---
[facility] - ED Test Date: 2020-04-17 Pat Name: LISA CHANDLER Department: Room: MAIN 7 Gender: Male Rn Infusion: BEL : 1950 Requested By: RENNY Order Number: [id number] Reading MD: Colin Blanca Measurements Intervals [place] Rate: 63 P: 58 DE: 180 QRS: -42 QRSD: 115 T: 229 QT: 469 QTc: 483 Interpretive Statements SINUS RHYTHM PRWP MODERATE IVCD INFEROLATERAL ST-T ABN. CONSIDER ISCHEMIA SEE SCANNED DOWNTIME REPORT
--- NOTE | 2020-05-18 10:15 | REP ---
PORTABLE CHEST X-RAY CLINICAL: Renal failure. FINDINGS: Cardiomegaly is appreciated. Right basilar atelectasis and small right pleural effusion noted. No pneumothorax. Mild pulmonary vasculature congestion cannot be excluded. Skeletal structures are intact. IMPRESSION: Small right pleural effusion and right basilar atelectasis. MTDD
--- NOTE | 2020-05-25 11:49 | IPN ---
DATE: 05/11/2020 SUBJECTIVE: Patient was seen and examined at the bedside today morning in the rehab unit. He is afebrile, hemodynamically stable. He is collecting 24-hour urine for creatinine clearance. His weight is stable. He denies any edema, chest pain or shortness of breath. OBJECTIVE: Vital signs: Temperature 97.2 degrees Fahrenheit, blood pressure 158/80, pulse 82, respiratory rate 18, saturating 96% on room air. Intake and output: Urine output recorded so far since overnight is 400 mL. Weight in the bed scale is 113.1 kg. PHYSICAL EXAMINATION: GENERAL: Patient is awake, alert, oriented x3, sitting up in the wheelchair, in no apparent distress. HEAD AND NECK: Extraocular muscles are intact. Pupils equally round and reactive to light. Mucous membranes are moist. Neck is supple. There is no JVD. CARDIOVASCULAR: S1, S2, regular rate. No edema of the bilateral lower extremities. RESPIRATORY: Chest is clear to auscultation bilaterally. Bilateral equal air entry. No rales or rhonchi. ABDOMEN: Soft, obese, positive bowel sounds, nontender. No organomegaly. MUSCULOSKELETAL: No clubbing or cyanosis. Pulses are 2+. He has a left arm sling because of left humerus fracture. CCU NURSE: No focal deficit at this time. LABORATORY REVIEW: CBC is from yesterday. BMP is also from yesterday with creatinine of 2.6 and he is collecting 24-hour urine for creatinine clearance now, reserve will be back tonight. CURRENT INPATIENT MEDICATIONS: Patient's medications were all reviewed by myself. There is no significant change in the medications today as compared with yesterday. ASSESSMENT AND PLAN: 1. Acute renal failure superimposed on chronic kidney disease stage 4: Requiring hemodialysis. Patient's dialysis is on hold right now because his creatinine was less than 3 on the previous labs. Continue to collect 24-hour urine. Depending upon his creatinine clearance and his labs tomorrow morning, it will be decided if he needs to continue dialysis or hold it for now. 2. Hypertension: Blood pressure is controlled, continue current dose of Coreg and Amlodipine along with Hydralazine. 3. Anemia and chronic kidney disease: Hemoglobin level is 9.6, he was getting Aranesp with dialysis. Continue to monitor for now. 4. Secondary hyperparathyroidism: Continue current dose of Calcitriol 0.5 mcg p.o. Friday, Friday, Friday. 5. Chronic gout secondary to chronic kidney disease: Continue current dose of Uloric 80 mg p.o. daily. 6. History of metastatic renal cell cancer: Solitary functioning kidney: all the chemo is on hold because of patient's inability to tolerate multiple chemotherapy regimens. He regularly follows up with hem/onc as an outpatient. MTDD
--- NOTE | 2020-05-29 10:38 | HPE ---
DATE OF ADMISSION: 04/17/2020 CHIEF COMPLAINT: Fall. HISTORY OF PRESENT ILLNESS: This is a 69-year-old male with a history of chronic kidney disease, stage III-IV, baseline creatinine of 1.8, renal cell carcinoma, status post left nephrectomy, diabetes, and hypertension, presented to the emergency room with acute fall. Patient was at his daughter's house putting new breaks on her car. He tried to sit in his walker and fell backward, landing on his left side and fracturing the left shoulder. Patient was on the ground for about 20 minutes until the ambulance came. He had otherwise been in his usual state of health. Denies any diarrhea, dehydration, fever, chills, cough, shortness of breath, dysuria, urgency, frequency, hematuria. In the emergency room (ER) he was found to have a creatinine of 4.55, hyperkalemic with a potassium of 5.7. Imaging study showed a mid shaft humeral fracture, which was nonsurgical according to orthopedic surgeon, Dr. Marquez. Hospitalist was asked to admit the patient for acute on chronic renal failure. Total CK was normal with no signs of rhabdomyolysis. The patient denies any difficulty starting or maintaining a urine. Said he had been followed by a [facility] urologist after his nephrectomy and had recently seen Dr. Bedoya, his senior game developer, recently with kidney function maintained at 1.8 creatinine. In the emergency room patient has not urinated. Upon arrival in the telemetry unit in the intensive care unit (ICU), nursing had attempted to place a Erickson catheter with a traumatic injury and gross hematuria. Unable to pass a Erickson catheter. Bladder scan showed [address] Ivory has been consulted for catheter placement. Recommended Coude catheter to be placed. Renal ultrasound showed no hydronephrosis, no kidney stone. Mild right renal cortical atrophy. Left kidney is not seen due to prior left nephrectomy. Dr. Kaufman has been consulted. Currently on intravenous (IV) fluids for acute on chronic renal failure. No shortness of breath. Chest x-ray: No pleural effusion. Patient had been given Kayexalate, calcium gluconate. MEDICAL HISTORY: 1. Type 2 diabetes. 2. Hypertension. 3. Renal cell cancer (CA) status post left nephrectomy. 4. Hypercholesterolemia. 5. Stage III-IV chronic kidney disease, baseline creatinine 1.8. 6. Metastatic lung cancer status post chemotherapy and radiation. 7. History of gout. 8. Cirrhosis. 9. Anemia. 10. Secondary hyperparathyroidism. 11. Hypothyroidism. PAST SURGICAL HISTORY: 1. Left nephrectomy. 2. Appendectomy. 3. Bilateral inguinal hernia repair. 4. Thoracentesis. 5. Right shoulder surgery related to fracture. 6. History of endoscopy. HOME MEDICATIONS: - famotidine - calcitriol 0.5 mcg - vitamin D 50,000 units weekly - aspirin 81 daily - ferrous sulfate 325 daily - multivitamin one tablet daily - magnesium 400 mg twice a day - levothyroxine 50 mcg daily - NovoLog insulin sliding scale - Uloric 80 mg daily - Levemir insulin 48 units daily - Zofran 4 mg as needed for nausea - Protonix 40 mg daily - Coreg 12.5 twice a day - Xalatan eyedrops 0.005% every night both eyes ALLERGIES: SULFA, ALLOPURINOL, CLINDAMYCIN, PROCHLORPERAZINE, SULFAMETHOXAZOLE, and TRIMETHOPRIM. 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 No alcohol or cigarette use. . Lives with his spouse. Never smoked cigarettes. FAMILY HISTORY: Father with diabetes and kidney failure. Mother due to diabetes and heart disease. One brother in good health. One sister has hypertension. REVIEW OF SYSTEMS: Per history of present illness (HPI). A 12-point system otherwise negative. PHYSICAL EXAMINATION: Temperature 98.9, pulse 75, respiratory rate 20, blood pressure 169/66, 97% on room air. GENERAL: Patient is awake, alert, oriented to person, place, and time, answering questions appropriately. No respiratory distress. No tracheal deviation. No jugular venous distention (JVD) or thyromegaly. Patient has front teeth missing. Poor dentition. Dry mucous membranes. LUNGS: Clear to auscultation. No wheezing, rales, or rhonchi. HEART: S1, S2, sinus rhythm. ABDOMEN: Obese, soft, nontender, nondistended. No costovertebral angle (CVA) tenderness. Positive bowel sounds times four quadrants. EXTREMITIES: No cyanosis or clubbing. LABORATORY DATA: White count 13.9, hemoglobin 11, hematocrit 31, platelet count 154. Sodium 138, potassium 5.7, chloride 107, bicarbonate 23, BUN 66, creatinine 4.55, baseline is 1.8, glucose 77, calcium 8.1. Total CK 97, MB fraction 2.7, relative index 2.78, troponin 0.02. IMAGING STUDIES: Renal ultrasound: Mild right renal cortical atrophy. Left kidney is not seen. No right hydronephrosis. ASSESSMENT AND PLAN: A 69-year-old male with a history of left-sided nephrectomy secondary to renal cell carcinoma, baseline creatinine of 1.8, diabetes, hypertension, hypercholesterolemia, stage III chronic kidney disease, metastatic lung CA, status post chemotherapy and radiation, gout, cirrhosis, anemia, secondary hyperparathyroidism, and hypothyroidism, presents to the emergency room after a fall with a left mid shaft humeral fracture, which is nonsurgical. Placed in a sling. Noted to have worsening renal function, creatinine of 4.5 and hyperkalemia. IMPRESSION: 1. Left humeral fracture. Dr. Shane Marquez has been consulted. Nonsurgical. Percocet one to two tablets as needed for pain control. 2. Acute on chronic renal failure in the setting of left nephrectomy with urine retention. Nephrology has been consulted. Currently on IV fluid trial. Due to urine retention, Erickson was attempted but now with gross hematuria, most likely due to traumatic injury. Dr. Ivory has been consulted and recommended Coude catheter if patient continues to retain urine and becomes uncomfortable. Urologist has been consulted for catheter placement. 3. History of left renal cell CA, status post left nephrectomy. Monitor Intake and output. Strict daily weights. Bladder scan and catheter placement. 4. Hypertension. Resumed on home medications. Avoid angiotensin-converting enzyme (SASHA) inhibitors and angiotensin-receptor onel (ARB). Hold off on patient's Bumex until patient's renal function has returned to baseline. Hold spironolactone for now. 5. Type 2 diabetes. Resume on home dose of Levemir insulin 35 units. Consistent- carbohydrate diet. 6. Hypercholesterolemia. 7. Secondary hyperparathyroidism, chronic. 8. Dyslipidemia. Continue on Zocor. 10. Hypothyroidism. Continue on levothyroxine. MTDD
--- NOTE | 2020-06-02 12:38 | IPN ---
DATE: 04/19/2020 Mr. Caban is seen this morning on his bedside. He is feeling better and denies any dyspnea or chest pain. He did have a CT scan of abdomen and pelvis done due to vomiting this morning, and it showed left kidney surgically absent. He has no hydronephrosis on the right side. Small right pleural effusion was noticed and possible cirrhosis of liver. Patient has been now tolerating diet, and he did eat after CT scan. PHYSICAL EXAMINATION: Temperature 96.1 degrees Fahrenheit, heart rate 78 per minute, and respiratory rate 14 per minute. Blood pressure 166/74 mm of mercury, and oxygen saturation 97% on room air. Head is atraumatic. Neck supple and without abnormal jugular venous distention (JVD). Heart sounds are regular and lungs sound clear to auscultation. Abdomen is soft and without any tenderness at present. Bowel sounds are normal. Extremities without any cyanosis or clubbing. His left upper extremity is in the sling. There is no edema on lower extremities. Neurologically, he is awake, alert, and oriented times three. Today's labs show WBC count 6.9, hemoglobin 9.0, and hematocrit 26.9. Platelets are 96,000. Sodium 139, potassium 4.7, CO2 of 25, BUN 69, and creatinine 4.44. Calcium level 7.8. PROBLEMS: 1. Acute kidney injury superimposed on chronic kidney disease. Slight improvement in kidney function since admission. This is close to his baseline kidney function, and at this point no urgent intervention is needed. He had vein mapping done for arteriovenous (AV) fistula in near future. there is no emergent indication for dialysis at present, and we will continue to monitor his kidney function closely. 2. Hyperparathyroidism. His intact parathyroid hormone (PTH) level is about 104, which is appropriate for his kidney function, and we will continue with calcitriol. 3. Anemia. His anemia is slightly worse. He is currently not on Procrit as an outpatient. There is no acute blood loss; however, he does have fracture of his left shoulder. He remains on oral ferrous sulfate 325 mg daily. I will order one dose of Aranesp 100 mcg tomorrow. 4. Hypertension. Blood pressure seems to be reasonably well controlled, and no changes are being made today. MTDD
--- NOTE | 2020-06-02 12:39 | IPN ---
DATE: 04/20/2020 Mr. Caban is seen this morning at his bedside. He is feeling well and is currently working with physical therapist. He denies any dyspnea, chest pain, nausea or vomiting. His diuretic has been on hold since admission due to acute kidney injury. Patient has no peripheral edema so far. He had vein mapping done for his right upper extremity yesterday for AV fistula creation in the near future. He has a left shoulder fracture and left arm is in a sling. So vein mapping was not done on the left arm. PHYSICAL EXAMINATION: Temperature 97 degrees Fahrenheit, heart rate 84 per minute, respiratory rate 18 per minute, blood pressure 137/69 mmHg and oxygen saturation 94% on room air. Head is atraumatic. Neck supple and without JVD or thyroid enlargement. Heart sounds are regular. Lungs sound clear to auscultation bilaterally. Abdomen is soft and nontender, bowel sounds are normal. Extremities without any cyanosis or clubbing. No lower extremity edema noted. Neurologically, he is awake, alert, and at his baseline mentation. LABORATORY DATA: Today's labs: WBC 6.9, hemoglobin 9.4 and hematocrit 26.9. Sodium 137, potassium 4.7, CO2 26, BUN 69, creatinine 4.36, glucose 158 and calcium 8.2. PROBLEMS: 1. Acute kidney injury superimposed on chronic kidney disease: No significant change and this is probably close to his baseline kidney function. The patient does not have any uremic symptoms and there is no emergent need for dialysis. He is going to have AV fistula in the near future and likely will require dialysis in the future. 2. Anemia: His anemia is stable at present and we will continue to watch it closely. Patient will continue with iron supplement. We gave him Aranesp 100 mcg today. 3. Gout: At present is asymptomatic. He is on Allopurinol 150 mg a day. 4. Hypertension: Blood pressure is well controlled on current antihypertensive medications and no changes being made today. 5. Congestive heart failure: His volume status is reasonably well compensated, however, his diuretic is on hold for decompensation. I would suggest to resume his diuretic at the time of discharge. [facility]
== END 2020-04-27 18:30 | DRG 562 ==
LOC: M ED 17:19 → M ED INP 21:36 → ENRESERV 23:23 → M ICU 04-18 01:02 → M PCU 04-20 11:30 → M MSPAV 04-27 00:25
PROVIDERS: ADMIT General Practice; ATTEND General Practice
PROC: 0JH63XZ Insertion of Tunneled Vascular Access Device into Chest Subcutaneous Tissue and Fascia, Percutaneous Approach (ICD-10-PCS; 2020-04-24)
PROC: 02H633Z Insertion of Infusion Device into Right Atrium, Percutaneous Approach (ICD-10-PCS; 2020-04-24)
PROC: 5A1D70Z Performance of Urinary Filtration, Intermittent, Less than 6 Hours Per Day (ICD-10-PCS; principal; 2020-04-24 14:30)
DX: S42.292A Other displaced fracture of upper end of left humerus, initial encounter for closed fracture (principal); N18.6 End stage renal disease; N17.9 Acute kidney failure, unspecified; N25.81 Secondary hyperparathyroidism of renal origin; C78.00 Secondary malignant neoplasm of unspecified lung; I13.2 Hypertensive heart and chronic kidney disease with heart failure and with stage 5 chronic kidney disease, or end stage renal disease; E11.22 Type 2 diabetes mellitus with diabetic chronic kidney disease; K74.60 Unspecified cirrhosis of liver; D63.1 Anemia in chronic kidney disease; R33.9 Retention of urine, unspecified; E03.9 Hypothyroidism, unspecified; W08.XXXA Fall from other furniture, initial encounter; Y92.018 Other place in single-family (private) house as the place of occurrence of the external cause; Y93.89 Activity, other specified; E87.5 Hyperkalemia; Y99.8 Other external cause status; Z90.49 Acquired absence of other specified parts of digestive tract; Z79.82 Long term (current) use of aspirin; Z79.4 Long term (current) use of insulin; Z79.899 Other long term (current) drug therapy; Z92.21 Personal history of antineoplastic chemotherapy; Z88.2 Allergy status to sulfonamides; Z88.1 Allergy status to other antibiotic agents; Z88.8 Allergy status to other drugs, medicaments and biological substances; Z90.5 Acquired absence of kidney; Z85.118 Personal history of other malignant neoplasm of bronchus and lung; Z92.3 Personal history of irradiation; Z85.528 Personal history of other malignant neoplasm of kidney; I50.9 Heart failure, unspecified; Z99.2 Dependence on renal dialysis; M10.30 Gout due to renal impairment, unspecified site; N40.1 Benign prostatic hyperplasia with lower urinary tract symptoms; I25.10 Atherosclerotic heart disease of native coronary artery without angina pectoris

== ENCOUNTER 2020-04-27 15:37 | Inpatient (IN) | payer MEDICARE ==
[~2020-04-27] VITALS: Ht 185.4 cm; Wt 114.5 kg
[~2020-04-27 15:37] MED LIST changes: +AMLO1TAB24 PO; +BACITAB PO; +BAYE325T12 PO; +BUME1TAB3 PO; +CALC500T44 PO; +HYDR-3911 PO; +INSUHUMDS SC; +INSULADS SC; +PERCOCET PO; +VENL37.52 PO; +VITMTA PO
[2020-04-27] MEDS ORDERED: DEXTROSE 50% 50 ML SYRINGE IV PRN (16:15)
[2020-04-27] MEDS ORDERED: GLUCAGON INJ 1MG VIAL SC PRN (16:15)
[2020-04-27] MEDS ORDERED: ONDANSETRON 4 MG ORAL DISINTEGRATING TAB PO PRN (16:15)
[2020-04-27] MEDS ORDERED: GLUCOSE 4GM CHEW TABLET PO PRN (16:15)
[2020-04-27 18:40] VITALS: BP 163/76
[2020-04-27 20:00] VITALS: BP 140/70
[2020-04-27] MEDS: HumaLOG INSULIN (NovoLOG) PER UNIT SC SCH (21:00)
[2020-04-27] MEDS: DOCUSATE SODIUM 100 MG CAP PO SCH (21:00)
[2020-04-27] MEDS ORDERED: SIMVASTATIN 40 MG TAB PO SCH (21:00)
[2020-04-27] MEDS: LATANOPROST 0.005% OPHTH SOLN 2.5 ML OU SCH (21:00)
[2020-04-27] MEDS: FERROUS SULFATE 325MG TAB PO SCH (22:05)
[2020-04-27] MEDS: SENNA 8.6 MG TAB (SENOKOT) PO SCH (22:07)
[2020-04-27] MEDS: SIMVASTATIN 20 MG TAB PO SCH (22:08)
[2020-04-27] MEDS: ACETAMINOPHEN 500 MG TAB PO SCH (22:08)
[2020-04-27] MEDS: HEPARIN SOD (PORCINE) 5000UNITS/ML 1ML VIAL/SYRINGE SC SCH (22:09)
[2020-04-27] MEDS: REMEDY PHYTOPLEX Z-GUARD PASTE 113GM TUBE (FROM STOREROOM PRODUCT) TOP SCH (22:09)
[2020-04-27] MEDS: amLODIPine 5 MG TAB PO SCH (22:10)
[2020-04-27] MEDS: CARVedilol 12.5 MG TAB PO SCH (22:11)
[2020-04-27] MEDS: **hydrALAZINE** 50 MG TAB PO SCH (22:11)
[2020-04-28] MEDS: LEVOTHYROXINE 50MCG TABLET (0.05MG) PO SCH (05:44)
[2020-04-28 06:00] VITALS: BP 145/75
[2020-04-28 06:53] LABS: BASO # 0.1 10^3/uL (0.0-0.2); BASO % 0.4 % (0.0-1.0); EOS # 0.4 10^3/uL (0.0-0.5); EOS % 3.1 % (0.0-3.0); HEMATOCRIT 27.1 % (42.0-52.0); LYMPH # 1.1 10^3/uL (1.5-5.0); LYMPH % 8.3 % (24.0-44.0); MEAN CORPUSCULAR HEMOGLOBIN 32.3 pg (27.0-33.0); MEAN CORPUSCULAR HGB CONC 33.2 g/dl (32.0-36.5); MEAN CORPUSCULAR VOLUME 97.1 fl (80.0-96.0); MONO # 0.8 10^3/uL (0.0-0.8); MONO % 6.1 % (0.0-5.0); NEUTROPHILS # 10.7 10^3/uL (1.5-8.5); NEUTROPHILS % 81.1 % (36.0-66.0); PLATELET COUNT, AUTOMATED 158 10^3/uL (150-450); RED BLOOD COUNT 2.79 10^6/uL (4.30-6.10); WHITE BLOOD COUNT 13.2 10^3/uL (4.0-10.0)
[2020-04-28] MEDS: DOCUSATE SODIUM 100 MG CAP PO SCH ×2 (08:17→20:44)
[2020-04-28] MEDS: HEPARIN SOD (PORCINE) 5000UNITS/ML 1ML VIAL/SYRINGE SC SCH ×2 (08:17→20:45)
[2020-04-28] MEDS: HumaLOG INSULIN (NovoLOG) PER UNIT SC SCH ×4 (08:17→20:45)
[2020-04-28] MEDS: VENLAFAXINE **XR** 37.5 MG CAPSULE PO SCH (08:18)
[2020-04-28] MEDS: **hydrALAZINE** 50 MG TAB PO SCH ×3 (08:18→20:43)
[2020-04-28] MEDS: FEBUXOSTAT 40 MG TABLET (ULORIC) PO SCH (08:18)
[2020-04-28] MEDS: PANTOPRAZOLE 40MG TAB (PROTONIX) PO SCH (08:18)
[2020-04-28] MEDS: CALCITRIOL 0.25 MCG CAP (S0169) PO SCH (08:18)
[2020-04-28] MEDS: CARVedilol 12.5 MG TAB PO SCH ×2 (08:18→20:44)
[2020-04-28] MEDS: ASPIRIN ENTERIC 325 MG TAB PO SCH (08:19)
[2020-04-28] MEDS: MULTIVITAMINS/MINERALS THERAP 1 TAB PO SCH (08:19)
[2020-04-28] MEDS: OYSTER SHELL CALCIUM 500 MG TAB PO SCH (08:19)
[2020-04-28] MEDS: amLODIPine 5 MG TAB PO SCH ×2 (08:20→20:44)
[2020-04-28] MEDS: ACETAMINOPHEN 500 MG TAB PO SCH ×3 (08:20→20:47)
[2020-04-28] MEDS: REMEDY PHYTOPLEX Z-GUARD PASTE 113GM TUBE (FROM STOREROOM PRODUCT) TOP SCH ×3 (08:20→20:42)
[2020-04-28] MEDS: LACTOBACILLUS ACIDOPHILUS CAP (BACID) PO SCH ×3 (08:22→17:11)
[2020-04-28 09:11] LABS: CREATININE FOR GFR 3.19 MG/DL (0.70-1.30); GLOMERULAR FILTRATION RATE 20.6 (>42)
[2020-04-28 09:12] LABS: ALBUMIN 2.2 GM/DL (3.2-5.2); BILIRUBIN,TOTAL 0.7 MG/DL (0.2-1.0); CALCIUM LEVEL 7.9 MG/DL (8.8-10.2); TOTAL PROTEIN 5.7 GM/DL (6.4-8.2)
--- NOTE | 2020-04-28 11:02 | HPEPDOC ---
Gambling Dealer Note DATE OF ADMISSION:04-27-20 DATE OF SERVICE: 04-28-20 TIME OF ADMISSION: Please refer to physician's admission order. SOURCE OF ADMISSION INFORMATION: [facility] recod and patient CHIEF COMPLAINT: ESRD and left humeral fracture HISTORY OF PRESENT ILLNESS: 69M pmh CKD stage 4 with hx of renal carcinoma s/p left nephrectomy, BPH, chronic CHF, DM, and gout who fell at home onto his left side and presented to [facility] ED on 04-17-20 with pain in his left upper extremity. Humerus X-ray revealed a left proximal humeral fracture and he was deemed to be not an appropriate surgical candidate when evautred by orthopedics and placed in a sling with Moran brace and made NWB. He was followed closely by nephrology who initially did not recommend dialysis, but due to worsening kidney function he had a permacath placed on 04-24-20 and started on HD. He had episodes of hyperkalemia and anemia which was treated by renal and elevations in BP for which his BP meds were adjusted. He was evaluated by therapy, noted to have impairments in mobility and ADLs and deemed medically appropriate for discharge to ARU on 04-27-20. REVIEW OF SYSTEMS: The following is a completed review of systems and has been reviewed. Review of systems otherwise unremarkable. PAIN: Patient self reports left arm pain EYES: No recent vision changes EARS, NOSE, & THROAT: No throat pain, or dysphagia, or rhinorrhea CARDIOVASCULAR: Denies chest pain or palpitations PULMONARY: Denies shortness of breath GASTROINTESTINAL: Denies constipation/diarrhea GENITOURINARY: denies dysuria MUSCULOSKELETAL: left arm pain NEUROLOGICAL:denies paresthesias or tremor HEMATOLOGICAL: + ecchymosis SKIN: denies rash PSYCHIATRIC: Unremarkable All other review of systems found to be negative. PAST MEDICAL HISTORY: as per HPI PAST SURGICAL HISTORY: Appendectomy, left nephrectomy, inguinal hernia repair, arm surgery ALLERGIES: Please see below. MEDICATIONS: Please see below. SOCIAL HISTORY: no smoking, eoth/illicit drugs DIET: renal diet PHYSICAL EXAMINATION: VITAL SIGNS: Please see below. GENERAL: Pleasant and cooperative. No acute distress. HEENT: PERRL. Extraocular movements intact. Clear conjunctiva CARDIOVASCULAR: Regular rate and rhythm. No murmurs, rubs, or gallops LUNGS: Clear to auscultation bilaterally. No wheezes. No rhonchi ABDOMEN: Soft, nontender, nondistended. Positive bowel sounds. Normal active bowel sounds NEUROLOGICAL: Alert and oriented times three. Cranial nerves II through XII grossly intact. Sensation grossly intact EXTREMITIES: 5\5 strength RUE, web interface developer and wrist extension 5/5 left arm (limited due to fracture) 5\5 strength right lower extremity. 5/5 strength in left lower extremity. SKIN: intact, areas of bruising under left shoulder brace without any open areas -Left hand and forearm with edema LABORATORY DATA: Please see below. IMAGING:Imaging documentation personally reviewed by record FUNCTIONAL STATUS: Premorbid: Modified Independent with all activities of daily life as well as mobility On Admission: Contact guard-Mod assist for ambulation, bed mobility, and functional transfers GOALS:Mod-I with quad cane household distances, dressing, bathing, toileting, functional transfers and bed mobility ASSESSMENT:69-year-old M with past medical history of ckd who presents status post recently initiated HD for ESRD and left humeral fracture PLAN: 1. Rehab- PT/OT advance gait and ADLs, c/u NWB to LUE, brace to be worn at all t imes 2. Ortho- s/p left proximal humeral fracture with left arm swelling, recent US negative for DVT-f/u ortho as outpatient patient encouraged to elevate arm 4. CArdiac- chronic CHF, c/u daily weights, fluid restriction- fluid management to be followed by renal -cardioprotection c/u ASA -HLD- c/u statin -HTN- c/u BP meds and adjust prn -medicine consulted to assist in overall management 5. Renal- ESRD on HD with chronic anemia, per renal management -secondary hyperparathyroidism c/u calcitriol 6. GI ppx- protonix 7. DVT ppx- heparin 8. Endo- hx of DM c/u ISS 9. PAin- tylneol and oxycodone, on Effexor 10. Dispo- tbd POST ADMISSION PHYSICIAN EVALUATION: Medical and functional status: Description of medical status, medical assessment: As above. Rehabilitation diagnosis and current and prior cold morbid medical conditions as above. Risk of complications and plans to mitigate them as above. Description of functional status current status is as above. Prior status as above. Status compared to preadmission: There are no clinically significant differences between the patient's current status and the information described on the pre admission screening document. Treatment plan anticipated: Treatment plan is as described above. Required disciplines including physical therapy, occupational therapy, others as noted above Intensity of services: 3 hours a day, days a week. Special considerations: There are no specific special or safety considerations that would likely preclude immediate implementation of an intensive rehabilitation program or subsequently influence the plan of care. ATTESTATION: Considering all the information above, it is my best judgment that this patient requires intensive rehabilitation therapy as described above and an inpatient hospital environment due to the complexity of nursing, medical, and rehabilitation needs required by the patient. Furthermore, this patient can reasonably be expected to participate in an benefit from an inpatient rehabilitation stay with an interdisciplinary team approach to the delivery of rehabilitation care under the direction and supervision of rehabilitation physician PROGNOSIS: good ESTIMATED LENGTH OF STAY:14-18 days. PROJECTED DISCHARGE DESTINATION: Home with family support and any durable medical equipment required to increase functional safety and mobility. TIME SPENT COUNSELING AND COORDINATING INITIAL CARE: Greater than 70 minutes. Vital Signs Vital Sign - Last 24 Hours 04/27/20 04/27/20 04/27/20 04/28/20 18:40 20:00 22:10 06:00 Temp 97.6 97.1 97.1 Pulse 94 92 98 98 Resp 18 18 18 B/P (MAP) 163/76 (105) 140/70 (93) 145/79 145/75 (98) Pulse Ox 96 96 96 O2 Delivery Room Air Room Air Room Air 04/28/20 04/28/20 04/28/20 08:18 08:18 08:20 Pulse 98 98 B/P (MAP) 145/75 145/75 145/75 Laboratory Data CBC/BMP Laboratory Tests 04/28/20 06:40 Labs 24H Laboratory Tests 2 04/28/20 06:40: Immature Granulocyte % (Auto) 1.0, Neutrophils (%) (Auto) 81.1H, Lymphocytes (%) (Auto) 8.3L, Monocytes (%) (Auto) 6.1H, Eosinophils (%) (Auto) 3.1H, Basophils (%) (Auto) 0.4, Neutrophils # (Auto) 10.7H, Lymphocytes # (Auto) 1.1L, Monocytes # (Auto) 0.8, Eosinophils # (Auto) 0.4, Basophils # (Auto) 0.1, Nucleated Red Blood Cells % (auto) 0.0, Anion Gap 9, Glomerular Filtration Rate 20.6L, Calcium Level 7.9L, Total Bilirubin 0.7, Aspartate Amino Transf (AST/SGOT) 26, Alanine Aminotransferase (ALT/SGPT) 17, Alkaline Phosphatase 204H, Total Protein 5.7L, Albumin 2.2L, Albumin/Globulin Ratio 0.6 Home Medications Scheduled Amlodipine Besylate (Amlodipine Besylate) 5 Mg Tablet, 5 MG PO BID Aspirin (Aspirin) 325 Mg Tablet, 325 MG PO DAILY, (Reported) Calcitriol (Rocaltrol) 0.5 Mcg Cap, 0.5 MCG PO 3XW, (Reported) TAKES FRIDAY, FRIDAY AND FRIDAY Calcium Carbonate/Vitamin D3 (Calcium 500-Vit D3 200 Tablet) 1 Each Tablet, 1 TA B PO DAILY, (Reported) Carvedilol (Carvedilol) 12.5 Mg Tab, 12.5 MG PO BID, (Reported) Ergocalciferol (Vitamin D2) (Vitamin D2) 50,000 Units Cap, 50,000 UNITS PO 1XWK, (Reported) FRIDAY Febuxostat (Uloric) 80 Mg Tab, 80 MG PO DAILY, (Reported) Ferrous Sulfate (Ferrous Sulfate) 325 Mg Tab, 325 MG PO QHS, (Reported) Hydralazine HCl (Hydralazine HCl) 50 Mg Tablet, 50 MG PO TID, (Reported) Insulin Glargine (Lantus) 100 Unit/1 Ml Vial, 35 UNIT SC DAILY, (Reported) Insulin Human Lispro (Humalog) 100 Unit/1 Ml Vial, 1 DOSE SC AC, (Reported) PER SLIDING SCALE L.acidoph/L.bulg/B.bif/S.therm (Bacid Caplet) 1 Each Tablet, 1 TAB PO DAILY, (Reported) Latanoprost (Xalatan) 0.005 % Yesi, 1 DROP OU QHS, (Reported) Levothyroxine Sodium (Levothyroxine Sodium) 50 Mcg Tab, 50 MCG PO DAILY, (Reported) Magnesium Oxide (Magnesium Oxide) 400 Mg Tab, 400 MG PO QHS, (Reported) Multivitamins (Thera M Plus Tablet) 1 Each Tablet, 1 TAB PO DAILY, (Reported) Campbell-3 Fatty Acids/Fish Oil (Fish Oil 1,000 mg Capsule) 1 Each Capsule, 1,000 MG PO QHS, (Reported) Pantoprazole Sodium (Protonix) 40 Mg Tab, 40 MG PO DAILY, (Reported) Simvastatin (Simvastatin) 40 Mg Tablet, 40 MG PO QHS, (Reported) Venlafaxine HCl (Venlafaxine HCl ER) 37.5 Mg Cap.er.24h, 37.5 MG PO DAILY, (Reported) Scheduled PRN Ondansetron (Ondansetron Odt) 8 Mg Tab, 8 MG PO Q8H PRN for NAUSEA OR VOMITING, (Reported) Oxycodone/Acetaminophen (Oxycodone-Acetaminophen 5-325) 1 Each Tablet, 1 TAB PO Q6HP PRN for MILD/MODERATE PAIN (PS 1-7) Oxycodone/Acetaminophen (Oxycodone-Acetaminophen 5-325) 1 Each Tablet, 2 TAB PO Q6HP PRN for SEVERE PAIN (PS 8-10) Allergies Coded Allergies: Sulfa (Sulfonamide Antibiotics) (Verified Allergy, Unknown, 04/17/20) allopurinol (Verified Allergy, Unknown, 04/17/20) clindamycin (Verified Allergy, Unknown, 04/17/20) prochlorperazine (Verified Allergy, Unknown, 04/17/20) sulfamethoxazole (Verified Allergy, Unknown, 04/17/20) trimethoprim (Verified Allergy, Unknown, 04/17/20) A-FIB/CHADSVASC A-FIB History Current/History of A-Fib/PAF?: No DOMINIC VANESSA MD Apr 28, 2020 11:02
[2020-04-28] MEDS ORDERED: DARBEPOETIN 100 MCG/0.5 ML *DIALYSIS* SYRINGE (J0882) IV SCH (11:30)
[2020-04-28] MEDS ORDERED: IRON SUCROSE 100MG 5ML VIAL (J1756 PER 1MG) IV SCH (11:30)
[2020-04-28 14:00] VITALS: BP 134/64
--- NOTE | 2020-04-28 17:30 | IPNPDOC ---
Text Note Date of Service The patient was seen on 04/28/20. NOTE SUBJECTIVE: Patient was seen and examined today at bedside. He states he is feeling well. He has been tolerating dialysis well. He will be continuing hemodialysis on a [facility]S scheduled while at [facility]. OBJECTIVE: PHYSICAL EXAMINATION: VITAL SIGNS: Please see below. GENERAL: Alert, sitting up comfortably in a chair, in no acute distress HEENT: NC, AT, moist mucous membranes, right IJ hemodialysis catheter present. CARDIOVASCULAR: RRR, normal S1 and S2 RESPIRATORY: CTAB, no wheezing, rhonchi, or rales ABDOMINAL: Soft, nontender, nondistended EXTREMITIES: trace bilateral lower extremity edema noted. Hard brace over the left shoulder due to recent fracture. ASSESSMENT/PLAN: 69 year old male with ESRD who was admitted with a left shoulder fracture after a mechanical fall 1. ESRD on hemodialysis. He will continue on TThS dialysis schedule while at rehab and after discharge. 2. Hypertension. Well controlled. Continue current dose of Amlodipine 5 mg twice a day, Coreg 12.5 mg twice a day, and Hydralazine 75 mg three times a day. 3. Anemia and end-stage renal disease. Patient has already been started on Aranesp and Venofer with dialysis. Hemoglobin level is stable at 9.0. 4. Chronic gout secondary to chronic kidney disease. Continue Uloric 80 mg daily. 5. Secondary hyperparathyroidism. Continue Calcitriol to 0.25 mcg Friday, Friday, Friday. Thank you for the consultation on this patient, we will continue to follow along. VS,Fishbone, I+O VS, Fishbone, I+O Laboratory Tests 04/28/20 06:40 Vital Signs Date Time Temp Pulse Resp B/P (MAP) Pulse Ox O2 Delivery O2 Flow Rate FiO2 04/28/20 17:12 164/79 04/28/20 14:00 97.5 90 16 97 Room Air I&O- Last 24 Hours up to 6 AM 04/28/20 06:00 Intake Total 0 ml Balance 0 ml GME ATTESTATION GME ATTESTATION My faculty preceptor for this patient encounter was physically present during the encounter and was fully available. All aspects of the patient interview, examination, medical decision making process, and medical care plan development were reviewed and approved by the faculty preceptor. The faculty preceptor is aware and concurs with the plan as stated in the body of this note and will attest to such by his/her cosignature. ATTENDING NOTE ESRD ,HD Dependent now anemia in ESRD HFpEF h/o Renal Cell Ca with Mets to lung and liver. HD TIW for now. Volume status is optimal now. OFELIA REEVES D.O. Apr 28, 2020 17:30 JUANA CORTEZ MD Apr 30, 2020 09:27
[2020-04-28 20:00] VITALS: BP 151/83
[2020-04-28] MEDS: LATANOPROST 0.005% OPHTH SOLN 2.5 ML OU SCH (20:42)
[2020-04-28] MEDS: SENNA 8.6 MG TAB (SENOKOT) PO SCH (20:43)
[2020-04-28] MEDS: SIMVASTATIN 20 MG TAB PO SCH (20:43)
[2020-04-28] MEDS: FERROUS SULFATE 325MG TAB PO SCH (20:43)
[2020-04-29] MEDS: oxyCODONE 5MG TAB PO PRN ×3 (00:09→16:44)
[2020-04-29 04:30] VITALS: BP 147/68
[2020-04-29] MEDS: LEVOTHYROXINE 50MCG TABLET (0.05MG) PO SCH (06:18)
[2020-04-29] MEDS: HumaLOG INSULIN (NovoLOG) PER UNIT SC SCH ×4 (08:57→20:28)
[2020-04-29] MEDS: LACTOBACILLUS ACIDOPHILUS CAP (BACID) PO SCH ×3 (08:57→16:44)
[2020-04-29] MEDS: HEPARIN SOD (PORCINE) 5000UNITS/ML 1ML VIAL/SYRINGE SC SCH ×2 (08:57→20:24)
[2020-04-29] MEDS: FEBUXOSTAT 40 MG TABLET (ULORIC) PO SCH (08:57)
[2020-04-29] MEDS: PANTOPRAZOLE 40MG TAB (PROTONIX) PO SCH (08:57)
[2020-04-29] MEDS: MULTIVITAMINS/MINERALS THERAP 1 TAB PO SCH (08:57)
[2020-04-29 08:58] LABS: BASO # 0.1 10^3/uL (0.0-0.2); BASO % 0.6 % (0.0-1.0); EOS # 0.7 10^3/uL (0.0-0.5); EOS % 6.7 % (0.0-3.0); HEMATOCRIT 26.3 % (42.0-52.0); LYMPH # 0.9 10^3/uL (1.5-5.0); LYMPH % 8.6 % (24.0-44.0); MEAN CORPUSCULAR HEMOGLOBIN 33.1 pg (27.0-33.0); MEAN CORPUSCULAR HGB CONC 34.2 g/dl (32.0-36.5); MEAN CORPUSCULAR VOLUME 96.7 fl (80.0-96.0); MONO # 0.6 10^3/uL (0.0-0.8); MONO % 5.9 % (0.0-5.0); NEUTROPHILS # 8.3 10^3/uL (1.5-8.5); NEUTROPHILS % 77.1 % (36.0-66.0); PLATELET COUNT, AUTOMATED 175 10^3/uL (150-450); RED BLOOD COUNT 2.72 10^6/uL (4.30-6.10); WHITE BLOOD COUNT 10.8 10^3/uL (4.0-10.0)
[2020-04-29] MEDS: REMEDY PHYTOPLEX Z-GUARD PASTE 113GM TUBE (FROM STOREROOM PRODUCT) TOP SCH ×3 (08:58→20:27)
[2020-04-29] MEDS: OYSTER SHELL CALCIUM 500 MG TAB PO SCH (08:58)
[2020-04-29] MEDS: DOCUSATE SODIUM 100 MG CAP PO SCH ×2 (08:58→20:24)
[2020-04-29] MEDS: ACETAMINOPHEN 500 MG TAB PO SCH ×3 (08:58→20:29)
[2020-04-29] MEDS: ASPIRIN ENTERIC 325 MG TAB PO SCH (08:58)
[2020-04-29] MEDS: VENLAFAXINE **XR** 37.5 MG CAPSULE PO SCH (08:58)
[2020-04-29] MEDS: amLODIPine 5 MG TAB PO SCH ×2 (09:01→20:25)
[2020-04-29] MEDS: CARVedilol 12.5 MG TAB PO SCH ×2 (09:02→20:26)
[2020-04-29] MEDS: **hydrALAZINE** 50 MG TAB PO SCH ×3 (09:02→20:25)
--- NOTE | 2020-04-29 11:57 | IPNPDOC ---
Text Note Date of Service The patient was seen on 04/29/20. NOTE SUBJECTIVE: Patient was seen and examined today at bedside. He states he is feeling well, is hoping to complete rehab in about ten days. He will be going down for dialysis later today. OBJECTIVE: PHYSICAL EXAMINATION: VITAL SIGNS: Please see below. GENERAL: Alert, sitting up comfortably in a chair, in no acute distress HEENT: NC, AT, moist mucous membranes, right IJ hemodialysis catheter present. CARDIOVASCULAR: RRR, normal S1 and S2 RESPIRATORY: CTAB, no wheezing, rhonchi, or rales ABDOMINAL: Soft, nontender, nondistended EXTREMITIES: Trace bilateral lower extremity edema noted. Hard brace over the left shoulder due to recent fracture. ASSESSMENT/PLAN: 69 year old male with ESRD who was admitted with a left shoulder fracture after a mechanical fall 1. ESRD on hemodialysis. Scheduled for dialysis session this afternoon. He will continue on [facility] dialysis schedule while at rehab. 2. Hypertension. Well controlled. Continue current dose of Amlodipine 5 mg twice a day, Coreg 12.5 mg twice a day, and Hydralazine 75 mg three times a day. 3. Anemia and end-stage renal disease. Continue on Aranesp and Venofer with dialysis. Hemoglobin level has been stable at 9.0. 4. Chronic gout secondary to chronic kidney disease. Continue Uloric 80 mg daily. 5. Secondary hyperparathyroidism. Continue Calcitriol to 0.25 mcg Friday, Friday, Friday. Thank you for the consultation on this patient, we will continue to follow along. VS,Andriae, I+O VS, Robbbone, I+O Laboratory Tests 04/29/20 08:15 Vital Signs Date Time Temp Pulse Resp B/P (MAP) Pulse Ox O2 Delivery O2 Flow Rate FiO2 04/29/20 09:30 18 04/29/20 09:02 147/68 04/29/20 09:02 92 04/29/20 04:30 97.2 98 Room Air I&O- Last 24 Hours up to 6 AM 04/29/20 05:59 Intake Total 1500 ml Output Total 400 ml Balance 1100 ml OFELIA REEVES D.O. Apr 29, 2020 11:57
[2020-04-29 14:00] VITALS: BP 163/77
[2020-04-29 20:00] VITALS: BP 151/78
[2020-04-29] MEDS: FERROUS SULFATE 325MG TAB PO SCH (20:24)
[2020-04-29] MEDS: SIMVASTATIN 20 MG TAB PO SCH (20:24)
[2020-04-29] MEDS: SENNA 8.6 MG TAB (SENOKOT) PO SCH (20:24)
[2020-04-29] MEDS: LEVEMIR (INSULIN DETEMIR) 1 UNITS/0.01ML SC SCH (20:26)
[2020-04-29] MEDS: LATANOPROST 0.005% OPHTH SOLN 2.5 ML OU SCH (20:27)
[2020-04-30] MEDS: LEVOTHYROXINE 50MCG TABLET (0.05MG) PO SCH (05:16)
[2020-04-30 06:02] VITALS: BP 152/74
[2020-04-30] MEDS: HEPARIN SOD (PORCINE) 5000UNITS/ML 1ML VIAL/SYRINGE SC SCH ×2 (08:01→20:19)
[2020-04-30] MEDS: DOCUSATE SODIUM 100 MG CAP PO SCH ×2 (08:02→20:17)
[2020-04-30] MEDS: MULTIVITAMINS/MINERALS THERAP 1 TAB PO SCH (08:02)
[2020-04-30] MEDS: OYSTER SHELL CALCIUM 500 MG TAB PO SCH (08:02)
[2020-04-30] MEDS: ACETAMINOPHEN 500 MG TAB PO SCH ×3 (08:02→20:19)
[2020-04-30] MEDS: ASPIRIN ENTERIC 325 MG TAB PO SCH (08:02)
[2020-04-30] MEDS: LACTOBACILLUS ACIDOPHILUS CAP (BACID) PO SCH ×3 (08:02→17:03)
[2020-04-30] MEDS: HumaLOG INSULIN (NovoLOG) PER UNIT SC SCH ×4 (08:02→20:20)
[2020-04-30] MEDS: PANTOPRAZOLE 40MG TAB (PROTONIX) PO SCH (08:02)
[2020-04-30] MEDS: FEBUXOSTAT 40 MG TABLET (ULORIC) PO SCH (08:02)
[2020-04-30] MEDS: VENLAFAXINE **XR** 37.5 MG CAPSULE PO SCH (08:03)
[2020-04-30] MEDS: CARVedilol 12.5 MG TAB PO SCH ×2 (08:03→20:19)
[2020-04-30] MEDS: amLODIPine 5 MG TAB PO SCH ×2 (08:03→20:18)
[2020-04-30] MEDS: **hydrALAZINE** 50 MG TAB PO SCH ×3 (08:04→20:18)
[2020-04-30] MEDS: REMEDY PHYTOPLEX Z-GUARD PASTE 113GM TUBE (FROM STOREROOM PRODUCT) TOP SCH ×3 (08:04→20:20)
[2020-04-30 14:00] VITALS: BP 147/69
[2020-04-30 20:00] VITALS: BP 156/76
[2020-04-30] MEDS: SIMVASTATIN 20 MG TAB PO SCH (20:18)
[2020-04-30] MEDS: SENNA 8.6 MG TAB (SENOKOT) PO SCH (20:18)
[2020-04-30] MEDS: FERROUS SULFATE 325MG TAB PO SCH (20:19)
[2020-04-30] MEDS: LEVEMIR (INSULIN DETEMIR) 1 UNITS/0.01ML SC SCH (20:20)
[2020-04-30] MEDS: LATANOPROST 0.005% OPHTH SOLN 2.5 ML OU SCH (20:21)
[2020-05-01] MEDS: oxyCODONE 5MG TAB PO PRN ×2 (02:10→11:49)
[2020-05-01] MEDS: LEVOTHYROXINE 50MCG TABLET (0.05MG) PO SCH (05:21)
[2020-05-01 06:00] VITALS: BP 159/75
[2020-05-01 06:30] LABS: BASO # 0.1 10^3/uL (0.0-0.2); BASO % 0.5 % (0.0-1.0); EOS # 0.6 10^3/uL (0.0-0.5); HEMATOCRIT 28.9 % (42.0-52.0); HEMOGLOBIN 9.6 g/dl (13.5-17.5); LYMPH # 1.1 10^3/uL (1.5-5.0); LYMPH % 11.8 % (24.0-44.0); MEAN CORPUSCULAR HEMOGLOBIN 32.9 pg (27.0-33.0); MEAN CORPUSCULAR HGB CONC 33.2 g/dl (32.0-36.5); MONO # 0.6 10^3/uL (0.0-0.8); MONO % 6.3 % (0.0-5.0); NEUTROPHILS # 6.9 10^3/uL (1.5-8.5); NEUTROPHILS % 74.1 % (36.0-66.0); PLATELET COUNT, AUTOMATED 185 10^3/uL (150-450); RED BLOOD COUNT 2.92 10^6/uL (4.30-6.10); WHITE BLOOD COUNT 9.3 10^3/uL (4.0-10.0)
[2020-05-01 06:48] LABS: CALCIUM LEVEL 8.3 MG/DL (8.8-10.2); CREATININE FOR GFR 3.56 MG/DL (0.70-1.30); GLOMERULAR FILTRATION RATE 18.2 (>42); POTASSIUM SERUM 3.7 MEQ/L (3.5-5.1)
[2020-05-01] MEDS: HEPARIN SOD (PORCINE) 5000UNITS/ML 1ML VIAL/SYRINGE SC SCH ×2 (08:26→21:06)
[2020-05-01] MEDS: HumaLOG INSULIN (NovoLOG) PER UNIT SC SCH ×4 (08:27→21:00)
[2020-05-01] MEDS: MULTIVITAMINS/MINERALS THERAP 1 TAB PO SCH (08:27)
[2020-05-01] MEDS: LACTOBACILLUS ACIDOPHILUS CAP (BACID) PO SCH ×3 (08:27→17:37)
[2020-05-01] MEDS: DOCUSATE SODIUM 100 MG CAP PO SCH ×2 (08:27→21:08)
[2020-05-01] MEDS: ASPIRIN ENTERIC 325 MG TAB PO SCH (08:27)
[2020-05-01] MEDS: OYSTER SHELL CALCIUM 500 MG TAB PO SCH (08:28)
[2020-05-01] MEDS: VENLAFAXINE **XR** 37.5 MG CAPSULE PO SCH (08:28)
[2020-05-01] MEDS: CALCITRIOL 0.25 MCG CAP (S0169) PO SCH (08:28)
[2020-05-01] MEDS: ACETAMINOPHEN 500 MG TAB PO SCH ×3 (08:28→21:07)
[2020-05-01] MEDS: PANTOPRAZOLE 40MG TAB (PROTONIX) PO SCH (08:28)
[2020-05-01] MEDS: FEBUXOSTAT 40 MG TABLET (ULORIC) PO SCH (08:28)
[2020-05-01] MEDS: amLODIPine 5 MG TAB PO SCH ×2 (08:29→21:08)
[2020-05-01] MEDS: CARVedilol 12.5 MG TAB PO SCH ×2 (08:29→21:08)
[2020-05-01] MEDS: **hydrALAZINE** 50 MG TAB PO SCH ×3 (08:32→21:07)
[2020-05-01] MEDS: REMEDY PHYTOPLEX Z-GUARD PASTE 113GM TUBE (FROM STOREROOM PRODUCT) TOP SCH ×3 (08:32→21:09)
--- NOTE | 2020-05-01 11:43 | IPNPDOC ---
PM&R Progress Note DATE OF SERVICE: May 01, 2020 Side Stapler Progress Note Subjective; Patient reporting he is toelrating therapy and dialysis and that his shoulder brace is digging into his elbow crease, but that the padding is helping. REVIEW OF SYSTEMS: The following is a completed review of systems and has been reviewed. Review of systems otherwise unremarkable. PAIN: Patient self reports left arm pain EYES: No recent vision changes EARS, NOSE, & THROAT: No throat pain, or dysphagia, or rhinorrhea CARDIOVASCULAR: Denies chest pain or palpitations PULMONARY: Denies shortness of breath GASTROINTESTINAL: Denies constipation/diarrhea GENITOURINARY: denies dysuria MUSCULOSKELETAL: left arm pain NEUROLOGICAL:denies paresthesias or tremor HEMATOLOGICAL: + ecchymosis SKIN: denies rash PSYCHIATRIC: Unremarkable All other review of systems found to be negative. PHYSICAL EXAMINATION: VITAL SIGNS: Please see below. GENERAL: Pleasant and cooperative. No acute distress. HEENT: PERRL. Extraocular movements intact. Clear conjunctiva CARDIOVASCULAR: Regular rate and rhythm. No murmurs, rubs, or gallops LUNGS: Clear to auscultation bilaterally. No wheezes. No rhonchi ABDOMEN: Soft, nontender, nondistended. Positive bowel sounds. Normal active bowel sounds NEUROLOGICAL: Alert and oriented times three. Cranial nerves II through XII grossly intact. Sensation grossly intact EXTREMITIES: 5\5 strength RUE, clinical systems analyst and wrist extension 5/5 left arm (limited due to fracture) 5\5 strength right lower extremity. 5/5 strength in left lower extremity. SKIN: intact, areas of bruising under left shoulder brace without any open areas -Left hand and forearm with scant edema (much less compared to prior exam) GOALS:Mod-I with quad cane household distances, dressing, bathing, toileting, functional transfers and bed mobility ASSESSMENT:69-year-old M with past medical history of ckd who presents status post recently initiated HD for ESRD and left humeral fracture PLAN: 1. Rehab- PT/OT advance gait and ADLs, c/u NWB to LUE, brace to be worn at all times 2. Ortho- s/p left proximal humeral fracture with left arm swelling, recent US negative for DVT-f/u ortho as outpatient-swelling nearly resolved patient encouraged to elevate arm 4. CArdiac- chronic CHF, c/u daily weights, fluid restriction- fluid management to be followed by renal -cardioprotection c/u ASA -HLD- c/u statin -HTN- c/u BP meds and adjust prn -medicine consulted to assist in overall management 5. Renal- ESRD on HD with chronic anemia, per renal management -secondary hyperparathyroidism c/u calcitriol 6. GI ppx- protonix 7. DVT ppx- heparin 8. Endo- hx of DM c/u ISS- hyperglycemia improving since levemir added 9. PAin- tylneol and oxycodone, on Effexor 10. Dispo- tbd Allergies Coded Allergies: Sulfa (Sulfonamide Antibiotics) (Verified Allergy, Unknown, 04/17/20) allopurinol (Verified Allergy, Unknown, 04/17/20) clindamycin (Verified Allergy, Unknown, 04/17/20) prochlorperazine (Verified Allergy, Unknown, 04/17/20) sulfamethoxazole (Verified Allergy, Unknown, 04/17/20) trimethoprim (Verified Allergy, Unknown, 04/17/20) Vital Signs Vital Signs Date Time Temp Pulse Resp B/P (MAP) Pulse Ox O2 Delivery O2 Flow Rate FiO2 05/01/20 08:32 159/75 05/01/20 08:29 93 05/01/20 06:00 97.0 17 98 Room Air Laboratory Data CBC/BMP Laboratory Tests 05/01/20 06:13 Labs 24H Laboratory Tests 2 04/30/20 16:19: Bedside Glucose (Misc Panel) 205H 04/30/20 19:27: Bedside Glucose (Misc Panel) 230H 05/01/20 05:21: Bedside Glucose (Misc Panel) 199H 05/01/20 06:13: Immature Granulocyte % (Auto) 1.3, Neutrophils (%) (Auto) 74.1H, Lymphocytes (%) (Auto) 11.8L, Monocytes (%) (Auto) 6.3H, Eosinophils (%) (Auto) 6.0H, Basophils (%) (Auto) 0.5, Neutrophils # (Auto) 6.9, Lymphocytes # (Auto) 1.1L, Monocytes # (Auto) 0.6, Eosinophils # (Auto) 0.6H, Basophils # (Auto) 0.1, Nucleated Red Blood Cells % (auto) 0.0, Anion Gap 3L, Glomerular Filtration Rate 18.2L, Calcium Level 8.3L Microbiology Microbiology 04/28/20 Blood Culture - Preliminary, Resulted No Growth after 48 hours. All Specime... 04/28/20 Blood Culture - Preliminary, Resulted No Growth after 48 hours. All Specime... Current Medications Current Medications Current Medications Medications (Trade) Dose Ordered Sig/Raghu Route PRN Reason Start Time Stop Time Status Last Admin Dose Admin Acetaminophen (Tylenol Tab) 1,000 mg TID PO 04/27/20 21:00 05/01/20 08:28 Amlodipine Besylate (Norvasc) 5 mg BID PO 04/27/20 21:00 05/01/20 08:29 Aspirin (Ecotrin) 325 mg DAILY PO 04/28/20 09:00 05/01/20 08:27 Calcitriol (Rocaltrol) 0.5 mcg MoWeFr@0900 PO 04/28/20 09:00 05/01/20 08:28 Calcium Carbonate (Oscal) 500 mg DAILY PO 04/28/20 09:00 05/01/20 08:28 Carvedilol (COReg) 12.5 mg BID PO 04/27/20 21:00 05/01/20 08:29 Darbepoetin Giovani (Aranesp (Dialysis Use)) 100 mcg HD IV 04/28/20 11:30 Dextrose (Dextrose 50%) 25 ml ASDIRECTED PRN IV SEE LABEL COMMENTS 04/27/20 16:15 Docusate Sodium (Colace) 100 mg BID PO 04/27/20 21:00 05/01/20 08:27 Febuxostat (Uloric) 80 mg DAILY PO 04/28/20 09:00 05/01/20 08:28 Ferrous Sulfate (Ferrous Sulfate) 325 mg QHS PO 04/27/20 21:00 04/30/20 20:19 Glucagon (Glucagon) 1 mg ASDIRECTED PRN SC SEE LABEL COMMENTS 04/27/20 16:15 Glucose (Glucose) 16 GM ASDIRECTED PRN PO SEE LABEL COMMENTS 04/27/20 16:15 Heparin Sodium (Porcine) (Heparin) 5,000 units Q12H SC 04/27/20 21:00 05/01/20 08:26 Home Med (Med Rec Complete!) ASDIRECTED XX 04/27/20 19:15 04/27/20 19:05 DC Hydralazine HCl (Apresoline) 50 mg TID PO 04/27/20 21:00 05/01/20 08:32 Insulin Detemir (Levemir Insulin) 5 units QHS SC 04/29/20 21:00 04/30/20 20:20 Insulin Human Lispro (HumaLOG INSULIN) SEE PROTOCOL TABLE AC SC 04/28/20 07:30 05/01/20 08:27 Insulin Human Lispro (HumaLOG INSULIN) SEE PROTOCOL TABLE QHS SC 04/27/20 21:00 Iron (Venofer) 100 mg HD IV 04/28/20 11:30 05/07/20 11:31 Lactobacillus Acidophilus (Bacid) 1 ea WM PO 04/28/20 09:00 05/01/20 08:27 Latanoprost (Xalatan 0.005% Op Soln) 1 drop QHS OU 04/27/20 21:00 04/30/20 20:21 Levothyroxine Sodium (Synthroid) 50 mcg DAILY@06 PO 04/28/20 06:00 05/01/20 05:21 Multivitamins (Theragram-M) 1 tab DAILY PO 04/28/20 09:00 05/01/20 08:27 Ondansetron HCl (Zofran Odt) 4 mg Q4HP PRN PO NAUSEA OR VOMITING 04/27/20 16:15 Oxycodone HCl (Roxicodone, Oxyir) 5 mg Q4HP PRN PO PAIN 04/27/20 16:15 05/01/20 02:10 Pantoprazole Sodium (Protonix) 40 mg DAILY PO 04/28/20 09:00 05/01/20 08:28 Senna (Senokot) 1 tab QHS PO 04/27/20 21:00 04/30/20 20:18 Simvastatin (Zocor) 20 mg QHS PO 04/27/20 21:00 04/30/20 20:18 Simvastatin (Zocor) 40 mg QHS PO 04/27/20 21:00 04/27/20 19:28 DC Venlafaxine HCl (Effexor Xr) 37.5 mg DAILY PO 04/28/20 09:00 05/01/20 08:28 DOMINIC VANESSA MD May 01, 2020 11:43
--- NOTE | 2020-05-01 11:54 | HPEPDOC ---
[facility] Medical History & Physical Date of Admission Apr 30, 2020 Date of Service: May 01, 2020 Attending Physician: BARRINGTON EL MD History and Physical CHIEF COMPLAINT: Recent LUE humeral fracture now in ARU HISTORY OF PRESENT ILLNESS: 69 yo man with morbid obesity, hx of renal carcinoma s/p left nephrectomy, CKD stage 4 with recent permacath placement on HD, BPH, chronic CHF, DM, and gout, whom at baseline ambulates with a rollator walker who recently fell at home onto his left shoulder and presented to [facility] on 04/17/20 with L shoulder pain and found to have a left proximal humeral fracture and orthopedic surgery (Dr. Shane Marquez) was consulted, and on evaluation and discussion with the family ultimately deemed not an appropriate surgical candidate and placed in a sling with Moran brace. While on inpatient medicine, his course was c/b ANGELLA on CKD and nephrology was consulted and a permacath was placed on 04/24/20 by IR and started on HD. His course was also c/b hyperkalemia that eventually resolved and after medical optimization he was screened by the ARU while working with PT and OT and he was recommended for ARU admission. He is therefore now admitted to the ARU REVIEW OF SYSTEMS: The following is a completed review of systems and has been reviewed. Review of systems otherwise unremarkable. MSK: Left arm pain with pinching by by brace, uncomfortable, also uncomfortable by neck because of sling holding onto neck instead of below right armpit because of new permacath. Creating difficulty with participation in therapy. Otherwise no other MSK complaints. EYES: No recent vision changes CARDIOVASCULAR: Denies chest pain or palpitations PULMONARY: Denies shortness of breath GASTROINTESTINAL: Denies constipation/diarrhea GENITOURINARY: denies dysuria NEUROLOGICAL:denies paresthesias or tremor or new noted changes HEMATOLOGICAL: Various scattered ecchymoses SKIN: Various scattered ecchymoses, no reported rashes PAST MEDICAL HISTORY: morbid obesity, hx of renal carcinoma s/p left nephrectomy, CKD stage 4 with recent permacath placement on HD, BPH, chronic CHF, DM, and gout, recent L humerus fracture PAST SURGICAL HISTORY: Appendectomy, left nephrectomy, inguinal hernia repair, arm surgery SOCIAL HISTORY: No smoking No alcohol No illicit drug use DIET: renal diet PHYSICAL EXAMINATION: VITAL SIGNS: Please see below. GENERAL: Pleasant and cooperative. No acute distress. Morbid obesity. HEENT: NCAT, PERRLA, EOMI, MMM CARDIOVASCULAR: RRR, no murmurs, rubs, or gallops LUNGS: Clear to auscultation bilaterally, no wheezing, rhonchi, crackles ABDOMEN: Obese, protuberant, non distended, soft, nontender, nondistended, normoactive bowel sounds. NEUROLOGICAL: AOx3. Cranial nerves 2-12 grossly intact. Moving all 4 extremities spontaneously with LUE EXTREMITIES: LUE with some edema, RUE wnl, bilateral LE no edema SKIN: intact, areas of bruising under left upper extremity brace without actual open areas, has some skin pinched by brace. has some scattered ecchymoses LABORATORY DATA: Please see below. IMAGING: Recent LUE doppler US on 04/26: no DVT Admission XR: proximal humerus fracture with varus alignment s/p prior plate fixation ASSESSMENT: 69-year-old man with ESRD recently initiated HD, history of RCC s/p L nephrectomy and recently admitted to medicine for left humeral fracture now in the ARU. PLAN: L humerus fracture: -With left proximal humeral fracture with left arm swelling, with plan for conservative management with sling with Moran brace that is uncomfortable despite loosening the sling and brace. Made call to ortho, Dr. Dolan covering said that he will let Dr. Marquez know and Dr. Marquez will see the patient af ter . For now nursing has removed sling that was hurting his neck while he is in bed. -recent US negative for DVT -patient encouraged to elevate arm -PT/OT -Pain control with Tylenol and oxycodone, Effexor Chronic CHF -daily weights, -continue fluid restriction -fluid management managed by nephrology HLD -c/w statin HTN -continue BID amlodipine ESRD on HD with chronic anemia Secondary hyperparathyroidism -c/w calcitriol GI ppx -continue protonix DM -SSI -FSBG AC/HS -renal diet -hypoglycemia protocol -continue levemir DVT ppx -heparin SQ Vital Signs Vital Signs Date Time Temp Pulse Resp B/P (MAP) Pulse Ox O2 Delivery O2 Flow Rate FiO2 05/01/20 08:32 159/75 05/01/20 08:29 93 05/01/20 06:00 97.0 17 98 Room Air Laboratory Data Labs 24H Laboratory Tests 2 04/30/20 11:19: Bedside Glucose (Misc Panel) 224H 04/30/20 16:19: Bedside Glucose (Misc Panel) 205H 04/30/20 19:27: Bedside Glucose (Misc Panel) 230H 05/01/20 05:21: Bedside Glucose (Misc Panel) 199H 05/01/20 06:13: Immature Granulocyte % (Auto) 1.3, Neutrophils (%) (Auto) 74.1H, Lymphocytes (%) (Auto) 11.8L, Monocytes (%) (Auto) 6.3H, Eosinophils (%) (Auto) 6.0H, Basophils (%) (Auto) 0.5, Neutrophils # (Auto) 6.9, Lymphocytes # (Auto) 1.1L, Monocytes # (Auto) 0.6, Eosinophils # (Auto) 0.6H, Basophils # (Auto) 0.1, Nucleated Red Blood Cells % (auto) 0.0, Anion Gap 3L, Glomerular Filtration Rate 18.2L, C alcium Level 8.3L CBC/BMP Laboratory Tests 05/01/20 06:13 Microbiology Microbiology 04/28/20 Blood Culture - Preliminary, Resulted No Growth after 48 hours. All Specime... 04/28/20 Blood Culture - Preliminary, Resulted No Growth after 48 hours. All Specime... Home Medications Scheduled Amlodipine Besylate (Amlodipine Besylate) 5 Mg Tablet, 5 MG PO BID Aspirin (Aspirin) 325 Mg Tablet, 325 MG PO DAILY Calcitriol (Rocaltrol) 0.5 Mcg Cap, 0.5 MCG PO 3XW TAKES FRIDAY, FRIDAY AND FRIDAY Calcium Carbonate/Vitamin D3 (Calcium 500-Vit D3 200 Tablet) 1 Each Tablet, 1 TAB PO DAILY Carvedilol (Carvedilol) 12.5 Mg Tab, 12.5 MG PO BID Ergocalciferol (Vitamin D2) (Vitamin D2) 50,000 Units Cap, 50,000 UNITS PO 1XWK FRIDAY Febuxostat (Uloric) 80 Mg Tab, 80 MG PO DAILY Ferrous Sulfate (Ferrous Sulfate) 325 Mg Tab, 325 MG PO QHS Hydralazine HCl (Hydralazine HCl) 50 Mg Tablet, 50 MG PO TID Insulin Glargine (Lantus) 100 Unit/1 Ml Vial, 35 UNIT SC DAILY Insulin Human Lispro (Humalog) 100 Unit/1 Ml Vial, 1 DOSE SC AC PER SLIDING SCALE L.acidoph/L.bulg/B.bif/S.therm (Bacid Caplet) 1 Each Tablet, 1 TAB PO DAILY Latanoprost (Xalatan) 0.005 % Yesi, 1 DROP OU QHS Levothyroxine Sodium (Levothyroxine Sodium) 50 Mcg Tab, 50 MCG PO DAILY Magnesium Oxide (Magnesium Oxide) 400 Mg Tab, 400 MG PO QHS Multivitamins (Thera M Plus Tablet) 1 Each Tablet, 1 TAB PO DAILY [place]-3 Fatty Acids/Fish Oil (Fish Oil 1,000 mg Capsule) 1 Each Capsule, 1,000 MG PO QHS Pantoprazole Sodium (Protonix) 40 Mg Tab, 40 MG PO DAILY Simvastatin (Simvastatin) 40 Mg Tablet, 40 MG PO QHS Venlafaxine HCl (Venlafaxine HCl ER) 37.5 Mg Cap.er.24h, 37.5 MG PO DAILY Scheduled PRN Ondansetron (Ondansetron Odt) 8 Mg Tab, 8 MG PO Q8H PRN for NAUSEA OR VOMITING Oxycodone/Acetaminophen (Oxycodone-Acetaminophen 5-325) 1 Each Tablet, 1 TAB PO Q6HP PRN for MILD/MODERATE PAIN (PS 1-7) Oxycodone/Acetaminophen (Oxycodone-Acetaminophen 5-325) 1 Each Tablet, 2 TAB PO Q6HP PRN for SEVERE PAIN (PS 8-10) Allergies Coded Allergies: Sulfa (Sulfonamide Antibiotics) (Verified Allergy, Unknown, 04/17/20) allopurinol (Verified Allergy, Unknown, 04/17/20) clindamycin (Verified Allergy, Unknown, 04/17/20) prochlorperazine (Verified Allergy, Unknown, 04/17/20) sulfamethoxazole (Verified Allergy, Unknown, 04/17/20) trimethoprim (Verified Allergy, Unknown, 04/17/20) A-FIB/CHADSVASC A-FIB History Current/History of A-Fib/PAF?: No Current PO Anticoag Therapy: No Age/Risk Factor Scoring CHADSVASC: CHADSVASC Response (Comments) Value Age Risk Factor Age 65-74 years old 1 Gender Risk Factor Male 0 Hx of CHF Yes 1 Hx of HTN Yes 1 Hx of Stroke/TIA/or VTE No 0 Hx of Diabetes Yes 1 Hx of Vascular Disease No 0 Total 4 Treatment Treatment ordered: NONE Reason Anticoagulant not given: Not indicated/[id number] BARRINGTON EL MD May 01, 2020 11:54
[2020-05-01 14:00] VITALS: BP 147/71
[2020-05-01 20:00] VITALS: BP 151/71
[2020-05-01] MEDS: LEVEMIR (INSULIN DETEMIR) 1 UNITS/0.01ML SC SCH (21:07)
[2020-05-01] MEDS: SENNA 8.6 MG TAB (SENOKOT) PO SCH (21:08)
[2020-05-01] MEDS: SIMVASTATIN 20 MG TAB PO SCH (21:08)
[2020-05-01] MEDS: FERROUS SULFATE 325MG TAB PO SCH (21:08)
[2020-05-01] MEDS: LATANOPROST 0.005% OPHTH SOLN 2.5 ML OU SCH (21:09)
[2020-05-02] MEDS: LEVOTHYROXINE 50MCG TABLET (0.05MG) PO SCH (05:43)
[2020-05-02 06:11] VITALS: BP 154/90
[2020-05-02] MEDS: HumaLOG INSULIN (NovoLOG) PER UNIT SC SCH ×4 (08:10→20:52)
[2020-05-02] MEDS: LACTOBACILLUS ACIDOPHILUS CAP (BACID) PO SCH ×3 (08:10→17:05)
[2020-05-02] MEDS: oxyCODONE 5MG TAB PO PRN (08:47)
[2020-05-02] MEDS: REMEDY PHYTOPLEX Z-GUARD PASTE 113GM TUBE (FROM STOREROOM PRODUCT) TOP SCH ×3 (09:00→20:52)
--- NOTE | 2020-05-02 09:09 | IPN ---
DATE: 04/30/2020 SUBJECTIVE: Mr. Caban is seen this morning on his bedside. He is currently lying in his bed. He reports that he did have some physical therapy this morning. He underwent hemodialysis yesterday afternoon and reports no problems. He did not have any issues even after dialysis. His left arm remains in a sling due to recent shoulder fracture, for which he is getting rehab. Patient denies any dyspnea, chest pain, nausea or vomiting. PHYSICAL EXAMINATION: Temperature 97 degrees Fahrenheit, heart rate 88 per minute, respiratory rate 18 per minute, blood pressure 155/79 mmHg, and oxygen saturation 97% on room air. Head is atraumatic. Neck supple and without JVD or thyroid enlargement. Heart sounds are regular and lungs clear to auscultation. Abdomen soft and nontender, and bowel sounds are normal. Extremities without any cyanosis or clubbing. Left upper extremity is in the sling. No peripheral edema noted. Neurologically, he is at his baseline mentation. LABORATORY DATA: Yesterdays labs showed WBC 10.8, hemoglobin 9, hematocrit 26.3. He did not have any new chemistry. PROBLEMS: 1. End-stage renal disease: Patient recently started dialysis. He was dialyzed yesterday and next dialysis will be scheduled for Friday. His volume status is well compensated at present. 2. Anemia: His anemia is gradually improving. He remains on Aranesp 100 mcg once a week, which will be continued. He is also taking oral iron. 3. Hypertension: Blood pressure seems very well controlled and no changes are being made today. 4. Deconditioning and weakness: Patient is currently getting acute rehab. [facility]
[2020-05-02] MEDS: **hydrALAZINE** 50 MG TAB PO SCH ×3 (09:38→20:51)
[2020-05-02] MEDS: CARVedilol 12.5 MG TAB PO SCH ×2 (09:39→20:50)
[2020-05-02] MEDS: DOCUSATE SODIUM 100 MG CAP PO SCH ×2 (09:39→20:50)
[2020-05-02] MEDS: VENLAFAXINE **XR** 37.5 MG CAPSULE PO SCH (09:39)
[2020-05-02] MEDS: FEBUXOSTAT 40 MG TABLET (ULORIC) PO SCH (09:39)
[2020-05-02] MEDS: ASPIRIN ENTERIC 325 MG TAB PO SCH (09:39)
[2020-05-02] MEDS: PANTOPRAZOLE 40MG TAB (PROTONIX) PO SCH (09:39)
[2020-05-02] MEDS: OYSTER SHELL CALCIUM 500 MG TAB PO SCH (09:39)
[2020-05-02] MEDS: amLODIPine 5 MG TAB PO SCH ×2 (09:39→20:51)
[2020-05-02] MEDS: ACETAMINOPHEN 500 MG TAB PO SCH ×3 (09:39→20:51)
[2020-05-02] MEDS: MULTIVITAMINS/MINERALS THERAP 1 TAB PO SCH (09:39)
[2020-05-02] MEDS: HEPARIN SOD (PORCINE) 5000UNITS/ML 1ML VIAL/SYRINGE SC SCH ×2 (09:40→20:50)
--- NOTE | 2020-05-02 10:06 | IPNPDOC ---
PM&R Progress Note DATE OF SERVICE: May 02, 2020 Project Manager Progress Note Subjective; Patient seen in dialysis stating he feels well overall and is looking forward to having his brace adjusted. REVIEW OF SYSTEMS: The following is a completed review of systems and has been reviewed. Review of systems otherwise unremarkable. PAIN: Patient self reports left arm pain EYES: No recent vision changes EARS, NOSE, & THROAT: No throat pain, or dysphagia, or rhinorrhea CARDIOVASCULAR: Denies chest pain or palpitations PULMONARY: Denies shortness of breath GASTROINTESTINAL: Denies constipation/diarrhea GENITOURINARY: denies dysuria MUSCULOSKELETAL: left arm pain NEUROLOGICAL:denies paresthesias or tremor HEMATOLOGICAL: + ecchymosis SKIN: denies rash PSYCHIATRIC: Unremarkable All other review of systems found to be negative. PHYSICAL EXAMINATION: VITAL SIGNS: Please see below. GENERAL: Pleasant and cooperative. No acute distress. HEENT: PERRL. Extraocular movements intact. Clear conjunctiva CARDIOVASCULAR: Regular rate and rhythm. No murmurs, rubs, or gallops LUNGS: Clear to auscultation bilaterally. No wheezes. No rhonchi ABDOMEN: Soft, nontender, nondistended. Positive bowel sounds. Normal active bowel sounds NEUROLOGICAL: Alert and oriented times three. Cranial nerves II through XII grossly intact. Sensation grossly intact EXTREMITIES: 5\5 strength RUE, senior editor and wrist extension 5/5 left arm (limited due to fracture) 5\5 strength right lower extremity. 5/5 strength in left lower extremity. SKIN: intact, areas of bruising under left shoulder brace without any open areas -Left hand and forearm with scant edema (much less compared to prior exam) GOALS:Mod-I with quad cane household distances, dressing, bathing, toileting, functional transfers and bed mobility ASSESSMENT:69-year-old M with past medical history of ckd who presents status post recently initiated HD for ESRD and left humeral fracture PLAN: 1. Rehab- PT/OT advance gait and ADLs, c/u NWB to LUE, brace to be worn at all times except for skin checks 2. Ortho- s/p left proximal humeral fracture with left arm swelling, recent US negative for DVT-f/u ortho as outpatient-swelling nearly resolved patient encouraged to elevate arm 4. CArdiac- chronic CHF, c/u daily weights, fluid restriction- fluid management to be followed by renal -cardioprotection c/u ASA -HLD- c/u statin -HTN- c/u BP meds and adjust prn -medicine consulted to assist in overall management 5. Renal- ESRD on HD with chronic anemia, per renal management -secondary hyperparathyroidism c/u calcitriol 6. GI ppx- protonix 7. DVT ppx- heparin 8. Endo- hx of DM c/u ISS- hyperglycemia improving since levemir added 9. PAin- tylneol and oxycodone, on Effexor 10. Dispo- tbd Allergies Coded Allergies: Sulfa (Sulfonamide Antibiotics) (Verified Allergy, Unknown, 04/17/20) allopurinol (Verified Allergy, Unknown, 04/17/20) clindamycin (Verified Allergy, Unknown, 04/17/20) prochlorperazine (Verified Allergy, Unknown, 04/17/20) sulfamethoxazole (Verified Allergy, Unknown, 04/17/20) trimethoprim (Verified Allergy, Unknown, 04/17/20) Vital Signs Vital Signs Date Time Temp Pulse Resp B/P (MAP) Pulse Ox O2 Delivery O2 Flow Rate FiO2 05/02/20 09:42 18 05/02/20 09:38 154/90 05/02/20 06:11 97.6 95 95 Room Air Laboratory Data Labs 24H Laboratory Tests 2 05/01/20 11:45: Bedside Glucose (Misc Panel) 215H 05/01/20 16:50: Bedside Glucose (Misc Panel) 209H 05/01/20 20:08: Bedside Glucose (Misc Panel) 224H 05/02/20 05:40: Bedside Glucose (Misc Panel) 196H Microbiology Microbiology 04/28/20 Blood Culture - Preliminary, Resulted No Growth after 72 hours. All specime... 04/28/20 Blood Culture - Preliminary, Resulted No Growth after 72 hours. All specime... Current Medications Current Medications Current Medications Medications (Trade) Dose Ordered Sig/Raghu Route PRN Reason Start Time Stop Time Status Last Admin Dose Admin Acetaminophen (Tylenol Tab) 1,000 mg TID PO 04/27/20 21:00 05/02/20 09:39 Amlodipine Besylate (Norvasc) 5 mg BID PO 04/27/20 21:00 05/02/20 09:39 Aspirin (Ecotrin) 325 mg DAILY PO 04/28/20 09:00 05/02/20 09:39 Calcitriol (Rocaltrol) 0.5 mcg MoWeFr@0900 PO 04/28/20 09:00 05/01/20 08:28 Calcium Carbonate (Oscal) 500 mg DAILY PO 04/28/20 09:00 05/02/20 09:39 Carvedilol (COReg) 12.5 mg BID PO 04/27/20 21:00 05/02/20 09:39 Darbepoetin Giovani (Aranesp (Dialysis Use)) 100 mcg HD IV 04/28/20 11:30 Dextrose (Dextrose 50%) 25 ml ASDIRECTED PRN IV SEE LABEL COMMENTS 04/27/20 16:15 Docusate Sodium (Colace) 100 mg BID PO 04/27/20 21:00 05/02/20 09:39 Febuxostat (Uloric) 80 mg DAILY PO 04/28/20 09:00 05/02/20 09:39 Ferrous Sulfate (Ferrous Sulfate) 325 mg QHS PO 04/27/20 21:00 05/01/20 21:08 Glucagon (Glucagon) 1 mg ASDIRECTED PRN SC SEE LABEL COMMENTS 04/27/20 16:15 Glucose (Glucose) 16 GM ASDIRECTED PRN PO SEE LABEL COMMENTS 04/27/20 16:15 Heparin Sodium (Porcine) (Heparin) 5,000 units Q12H SC 04/27/20 21:00 05/02/20 09:40 Home Med (Med Rec Complete!) ASDIRECTED XX 04/27/20 19:15 04/27/20 19:05 DC Hydralazine HCl (Apresoline) 50 mg TID PO 04/27/20 21:00 05/02/20 09:38 Insulin Detemir (Levemir Insulin) 5 units QHS SC 04/29/20 21:00 05/01/20 21:07 Insulin Human Lispro (HumaLOG INSULIN) SEE PROTOCOL TABLE AC SC 04/28/20 07:30 05/02/20 08:10 Insulin Human Lispro (HumaLOG INSULIN) SEE PROTOCOL TABLE QHS SC 04/27/20 21:00 Iron (Venofer) 100 mg HD IV 04/28/20 11:30 05/07/20 11:31 Lactobacillus Acidophilus (Bacid) 1 ea WM PO 04/28/20 09:00 05/02/20 08:10 Latanoprost (Xalatan 0.005% Op Soln) 1 drop QHS OU 04/27/20 21:00 05/01/20 21:09 Levothyroxine Sodium (Synthroid) 50 mcg DAILY@06 PO 04/28/20 06:00 05/02/20 05:43 Multivitamins (Theragram-M) 1 tab DAILY PO 04/28/20 09:00 05/02/20 09:39 Ondansetron HCl (Zofran Odt) 4 mg Q4HP PRN PO NAUSEA OR VOMITING 04/27/20 16:15 Oxycodone HCl (Roxicodone, Oxyir) 5 mg Q4HP PRN PO PAIN 04/27/20 16:15 05/02/20 08:47 Pantoprazole Sodium (Protonix) 40 mg DAILY PO 04/28/20 09:00 05/02/20 09:39 Senna (Senokot) 1 tab QHS PO 04/27/20 21:00 05/01/20 21:08 Simvastatin (Zocor) 20 mg QHS PO 04/27/20 21:00 05/01/20 21:08 Simvastatin (Zocor) 40 mg QHS PO 04/27/20 21:00 04/27/20 19:28 DC Venlafaxine HCl (Effexor Xr) 37.5 mg DAILY PO 04/28/20 09:00 05/02/20 09:39 DOMINIC VANESSA MD May 02, 2020 10:06
--- NOTE | 2020-05-02 13:09 | IPN ---
DATE: 05/01/2020 SUBJECTIVE: Mr. Caban is seen this morning at his bedside. He is currently getting ready for Physical Therapy. He is having some problem with his left shoulder sling. Patient had hemodialysis on Friday. Denies any dyspnea, chest pain, nausea or vomiting. PHYSICAL EXAMINATION: VITAL SIGNS: Temperature is 97.2 degrees, heart rate is 88 per minute and respiratory rate is 18 per minute. Blood pressure is 147/70 mmHg and oxygen saturation 96% on room air. HEAD: Atraumatic. NECK: Supple without JVD or thyroid enlargement. CHEST: Perm-A-Cath is present on left upper chest. HEART: Heart sounds are regular. LUNGS: Clear to auscultation. ABDOMEN: Soft and nontender. Bowel sounds are normal. EXTREMITIES: Without any cyanosis or clubbing. Left arm is in the sling. NEUROLOGIC: He is at his baseline mentation. LABORATORY DATA: Todays labs showed WBC count of 9.3, hemoglobin 9.6 and hematocrit 28.9. Sodium is 136, potassium is 3.7, CO2 30, BUN 38 and creatinine 3.56, glucose 205 and calcium 8.3. PROBLEMS: 1. Endstage renal disease. Patient has recently started dialysis and he was dialyzed on Friday. The next dialysis will be scheduled for tomorrow. His volume status is well-compensated and electrolytes are within normal range. No urgent need for dialysis today. 2. Anemia. His anemia is stable and gradually improving. We will continue with weekly dose of Aranesp during dialysis. 3. Left shoulder fracture. Patient is currently undergoing rehab due to deconditioning related to his left shoulder fracture. MTDD
[2020-05-02 16:50] VITALS: BP 168/80
[2020-05-02 20:02] VITALS: BP 160/82
[2020-05-02] MEDS: SENNA 8.6 MG TAB (SENOKOT) PO SCH (20:50)
[2020-05-02] MEDS: FERROUS SULFATE 325MG TAB PO SCH (20:51)
[2020-05-02] MEDS: SIMVASTATIN 20 MG TAB PO SCH (20:51)
[2020-05-02] MEDS: LEVEMIR (INSULIN DETEMIR) 1 UNITS/0.01ML SC SCH (20:52)
[2020-05-02] MEDS: LATANOPROST 0.005% OPHTH SOLN 2.5 ML OU SCH (20:52)
[2020-05-03] MEDS: LEVOTHYROXINE 50MCG TABLET (0.05MG) PO SCH (05:30)
[2020-05-03 05:59] VITALS: BP 136/76
[2020-05-03 06:14] LABS: BASO % 0.4 % (0.0-1.0); EOS # 0.4 10^3/uL (0.0-0.5); EOS % 5.6 % (0.0-3.0); LYMPH # 0.9 10^3/uL (1.5-5.0); LYMPH % 13.4 % (24.0-44.0); MEAN CORPUSCULAR HEMOGLOBIN 33.3 pg (27.0-33.0); MEAN CORPUSCULAR HGB CONC 33.3 g/dl (32.0-36.5); MONO # 0.5 10^3/uL (0.0-0.8); NEUTROPHILS # 4.9 10^3/uL (1.5-8.5); NEUTROPHILS % 71.7 % (36.0-66.0); PLATELET COUNT, AUTOMATED 183 10^3/uL (150-450); WHITE BLOOD COUNT 6.8 10^3/uL (4.0-10.0)
[2020-05-03 06:32] LABS: CALCIUM LEVEL 8.1 MG/DL (8.8-10.2); CREATININE FOR GFR 2.91 MG/DL (0.70-1.30); GLOMERULAR FILTRATION RATE 22.9 (>42); POTASSIUM SERUM 3.8 MEQ/L (3.5-5.1)
[2020-05-03] MEDS: MULTIVITAMINS/MINERALS THERAP 1 TAB PO SCH (08:46)
[2020-05-03] MEDS: HEPARIN SOD (PORCINE) 5000UNITS/ML 1ML VIAL/SYRINGE SC SCH ×2 (08:46→20:34)
[2020-05-03] MEDS: LACTOBACILLUS ACIDOPHILUS CAP (BACID) PO SCH ×3 (08:46→16:44)
[2020-05-03] MEDS: FEBUXOSTAT 40 MG TABLET (ULORIC) PO SCH (08:46)
[2020-05-03] MEDS: ACETAMINOPHEN 500 MG TAB PO SCH ×3 (08:46→20:37)
[2020-05-03] MEDS: **hydrALAZINE** 50 MG TAB PO SCH ×3 (08:46→20:36)
[2020-05-03] MEDS: PANTOPRAZOLE 40MG TAB (PROTONIX) PO SCH (08:47)
[2020-05-03] MEDS: CALCITRIOL 0.25 MCG CAP (S0169) PO SCH (08:47)
[2020-05-03] MEDS: amLODIPine 5 MG TAB PO SCH ×2 (08:47→20:37)
[2020-05-03] MEDS: ASPIRIN ENTERIC 325 MG TAB PO SCH (08:47)
[2020-05-03] MEDS: DOCUSATE SODIUM 100 MG CAP PO SCH ×2 (08:47→20:37)
[2020-05-03] MEDS: OYSTER SHELL CALCIUM 500 MG TAB PO SCH (08:47)
[2020-05-03] MEDS: VENLAFAXINE **XR** 37.5 MG CAPSULE PO SCH (08:47)
[2020-05-03] MEDS: CARVedilol 12.5 MG TAB PO SCH ×2 (08:47→20:36)
[2020-05-03] MEDS: HumaLOG INSULIN (NovoLOG) PER UNIT SC SCH ×4 (08:48→20:37)
[2020-05-03] MEDS: REMEDY PHYTOPLEX Z-GUARD PASTE 113GM TUBE (FROM STOREROOM PRODUCT) TOP SCH ×3 (08:56→21:00)
--- NOTE | 2020-05-03 10:41 | IPNPDOC ---
PM&R Progress Note DATE OF SERVICE: May 03, 2020 [employer] Progress Note Subjective; Patient reporting since his brace was adjusted he is feeling much better. He reports he is feeling steadier on his feet and thinks therapy is going well. REVIEW OF SYSTEMS: The following is a completed review of systems and has been reviewed. Review of systems otherwise unremarkable. PAIN: Patient self reports left arm pain EYES: No recent vision changes EARS, NOSE, & THROAT: No throat pain, or dysphagia, or rhinorrhea CARDIOVASCULAR: Denies chest pain or palpitations PULMONARY: Denies shortness of breath GASTROINTESTINAL: Denies constipation/diarrhea GENITOURINARY: denies dysuria MUSCULOSKELETAL: left arm pain NEUROLOGICAL:denies paresthesias or tremor HEMATOLOGICAL: + ecchymosis SKIN: denies rash PSYCHIATRIC: Unremarkable All other review of systems found to be negative. PHYSICAL EXAMINATION: VITAL SIGNS: Please see below. GENERAL: Pleasant and cooperative. No acute distress. HEENT: PERRL. Extraocular movements intact. Clear conjunctiva CARDIOVASCULAR: Regular rate and rhythm. No murmurs, rubs, or gallops LUNGS: Clear to auscultation bilaterally. No wheezes. No rhonchi ABDOMEN: Soft, nontender, nondistended. Positive bowel sounds. Normal active bowel sounds NEUROLOGICAL: Alert and oriented times three. Cranial nerves II through XII grossly intact. Sensation grossly intact EXTREMITIES: 5\5 strength RUE, horticultural specialty grower inside and wrist extension 5/5 left arm (limited due to fracture) 5\5 strength right lower extremity. 5/5 strength in left lower extremity. SKIN: intact, areas of bruising under left shoulder brace without any open areas -Left hand and forearm with no edema GOALS:Mod-I with quad cane household distances, dressing, bathing, toileting, functional transfers and bed mobility ASSESSMENT:69-year-old M with past medical history of ckd who presents status post recently initiated HD for ESRD and left humeral fracture PLAN: 1. Rehab- PT/OT advance gait and ADLs, c/u NWB to LUE, brace to be worn at all times except for skin checks 2. Ortho- s/p left proximal humeral fracture with left arm swelling, recent US negative for DVT-f/u ortho as outpatient-swelling resolved - Moran brace adjusted today 4. CArdiac- chronic CHF, c/u daily weights, fluid restriction- fluid management to be followed by renal -cardioprotection c/u ASA -HLD- c/u statin -HTN- c/u BP meds and adjust prn -medicine consulted to assist in overall management 5. Renal- ESRD on HD with chronic anemia, per renal management -secondary hyperparathyroidism c/u calcitriol 6. GI ppx- protonix 7. DVT ppx- heparin 8. Endo- hx of DM c/u ISS- hyperglycemia improving will increase evening dose to 10 units 9. PAin- tylneol and oxycodone, on Effexor 10. Dispo- 05-12-20 to home Allergies Coded Allergies: Sulfa (Sulfonamide Antibiotics) (Verified Allergy, Unknown, 04/17/20) allopurinol (Verified Allergy, Unknown, 04/17/20) clindamycin (Verified Allergy, Unknown, 04/17/20) prochlorperazine (Verified Allergy, Unknown, 04/17/20) sulfamethoxazole (Verified Allergy, Unknown, 04/17/20) trimethoprim (Verified Allergy, Unknown, 04/17/20) Vital Signs Vital Signs Date Time Temp Pulse Resp B/P (MAP) Pulse Ox O2 Delivery O2 Flow Rate FiO2 05/03/20 08:46 136/76 05/03/20 05:59 97.8 93 18 98 Room Air Laboratory Data CBC/BMP Laboratory Tests 05/03/20 05:24 Labs 24H Laboratory Tests 2 05/02/20 11:35: Bedside Glucose (Misc Panel) 206H 05/02/20 16:58: Bedside Glucose (Misc Panel) 150H 05/02/20 19:34: Bedside Glucose (Misc Panel) 265H 05/03/20 05:24: Immature Granulocyte % (Auto) 0.9, Neutrophils (%) (Auto) 71.7H, Lymphocytes (%) (Auto) 13.4L, Monocytes (%) (Auto) 8.0H, Eosinophils (%) (Auto) 5.6H, Basophils (%) (Auto) 0.4, Neutrophils # (Auto) 4.9, Lymphocytes # (Auto) 0.9L, Monocytes # (Auto) 0.5, Eosinophils # (Auto) 0.4, Basophils # (Auto) 0.0, Nucleated Red Blood Cells % (auto) 0.0, Anion Gap 4L, Glomerular Filtration Rate 22.9L, Calcium Level 8.1L Microbiology Microbiology 04/28/20 Blood Culture - Preliminary, Resulted No Growth after 72 hours. All specime... 04/28/20 Blood Culture - Preliminary, Resulted No Growth after 72 hours. All specime... Current Medications Current Medications Current Medications Medications (Trade) Dose Ordered Sig/Raghu Route PRN Reason Start Time Stop Time Status Last Admin Dose Admin Acetaminophen (Tylenol Tab) 1,000 mg TID PO 04/27/20 21:00 05/03/20 08:46 Amlodipine Besylate (Norvasc) 5 mg BID PO 04/27/20 21:00 05/03/20 08:47 Aspirin (Ecotrin) 325 mg DAILY PO 04/28/20 09:00 05/03/20 08:47 Calcitriol (Rocaltrol) 0.5 mcg MoWeFr@0900 PO 04/28/20 09:00 05/03/20 08:47 Calcium Carbonate (Oscal) 500 mg DAILY PO 04/28/20 09:00 05/03/20 08:47 Carvedilol (COReg) 12.5 mg BID PO 04/27/20 21:00 05/03/20 08:47 Darbepoetin Giovani (Aranesp (Dialysis Use)) 100 mcg HD IV 04/28/20 11:30 Dextrose (Dextrose 50%) 25 ml ASDIRECTED PRN IV SEE LABEL COMMENTS 04/27/20 16:15 Docusate Sodium (Colace) 100 mg BID PO 04/27/20 21:00 05/03/20 08:47 Febuxostat (Uloric) 80 mg DAILY PO 04/28/20 09:00 05/03/20 08:46 Ferrous Sulfate (Ferrous Sulfate) 325 mg QHS PO 04/27/20 21:00 05/02/20 20:51 Glucagon (Glucagon) 1 mg ASDIRECTED PRN SC SEE LABEL COMMENTS 04/27/20 16:15 Glucose (Glucose) 16 GM ASDIRECTED PRN PO SEE LABEL COMMENTS 04/27/20 16:15 Heparin Sodium (Porcine) (Heparin) 5,000 units Q12H SC 04/27/20 21:00 05/03/20 08:46 Home Med (Med Rec Complete!) ASDIRECTED XX 04/27/20 19:15 04/27/20 19:05 DC Hydralazine HCl (Apresoline) 50 mg TID PO 04/27/20 21:00 05/03/20 08:46 Insulin Detemir (Levemir Insulin) 5 units QHS SC 04/29/20 21:00 05/03/20 10:38 DC 05/02/20 20:52 Insulin Detemir (Levemir Insulin) 10 units QHS SC 05/03/20 21:00 UNV Insulin Human Lispro (HumaLOG INSULIN) SEE PROTOCOL TABLE AC SC 04/28/20 07:30 05/03/20 08:48 Insulin Human Lispro (HumaLOG INSULIN) SEE PROTOCOL TABLE QHS SC 04/27/20 21:00 05/02/20 20:52 Iron (Venofer) 100 mg HD IV 04/28/20 11:30 Lactobacillus Acidophilus (Bacid) 1 ea WM PO 04/28/20 09:00 05/03/20 08:46 Latanoprost (Xalatan 0.005% Op Soln) 1 drop QHS OU 04/27/20 21:00 05/02/20 20:52 Levothyroxine Sodium (Synthroid) 50 mcg DAILY@06 PO 04/28/20 06:00 05/03/20 05:30 Multivitamins (Theragram-M) 1 tab DAILY PO 04/28/20 09:00 05/03/20 08:46 Ondansetron HCl (Zofran Odt) 4 mg Q4HP PRN PO NAUSEA OR VOMITING 04/27/20 16:15 Oxycodone HCl (Roxicodone, Oxyir) 5 mg Q4HP PRN PO PAIN 04/27/20 16:15 05/02/20 08:47 Pantoprazole Sodium (Protonix) 40 mg DAILY PO 04/28/20 09:00 05/03/20 08:47 Senna (Senokot) 1 tab QHS PO 04/27/20 21:00 05/02/20 20:50 Simvastatin (Zocor) 20 mg QHS PO 04/27/20 21:00 05/02/20 20:51 Simvastatin (Zocor) 40 mg QHS PO 04/27/20 21:00 04/27/20 19:28 DC Venlafaxine HCl (Effexor Xr) 37.5 mg DAILY PO 04/28/20 09:00 05/03/20 08:47 DOMINIC VANESSA MD May 03, 2020 10:41
--- NOTE | 2020-05-03 11:19 | IPNPDOC ---
Text Note Date of Service The patient was seen on 05/03/20. NOTE SUBJECTIVE: Patient was seen and examined today at bedside. He states he is feeling well overall. Tolerating dialysis without any issues. Continues to have some left shoulder pain. OBJECTIVE: PHYSICAL EXAMINATION: VITAL SIGNS: Please see below. GENERAL: Alert, sitting up comfortably in a chair, in no acute distress HEENT: NC, AT, moist mucous membranes, right IJ hemodialysis catheter present. CARDIOVASCULAR: RRR, normal S1 and S2 RESPIRATORY: CTAB, no wheezing, rhonchi, or rales ABDOMINAL: Soft, nontender, nondistended EXTREMITIES: Trace bilateral lower extremity edema. Hard brace over the left shoulder due to recent fracture. ASSESSMENT/PLAN: 69 year old male with ESRD who was admitted with a left shoulder fracture after a mechanical fall 1. ESRD on hemodialysis. He will continue on [facility] dialysis schedule while at rehab. 2. Hypertension. Well controlled. Continue current dose of Amlodipine 5 mg twice a day, Coreg 12.5 mg twice a day, and Hydralazine 50 mg three times a day. 3. Anemia and end-stage renal disease. Continue on Aranesp and Venofer with dialysis. Hemoglobin level has been stable at 9.0. 4. Chronic gout secondary to chronic kidney disease. Continue Uloric 80 mg daily. 5. Secondary hyperparathyroidism. Continue Calcitriol to 0.25 mcg on Friday, Friday, Friday. Thank you for the consultation on this patient, we will continue to follow along. VS,Fishbone, I+O VS, Fishbone, I+O Laboratory Tests 05/03/20 05:24 Vital Signs Date Time Temp Pulse Resp B/P (MAP) Pulse Ox O2 Delivery O2 Flow Rate FiO2 05/03/20 08:46 136/76 05/03/20 05:59 97.8 93 18 98 Room Air I&O- Last 24 Hours up to 6 AM 05/03/20 06:00 Intake Total 440 ml Output Total 1000 ml Balance -560 ml OFELIA REEVES D.O. May 03, 2020 11:19
[2020-05-03 14:00] VITALS: BP 138/65
[2020-05-03 20:00] VITALS: BP 166/86
[2020-05-03] MEDS: LEVEMIR (INSULIN DETEMIR) 1 UNITS/0.01ML SC SCH (20:35)
[2020-05-03] MEDS: SIMVASTATIN 20 MG TAB PO SCH (20:36)
[2020-05-03] MEDS: FERROUS SULFATE 325MG TAB PO SCH (20:36)
[2020-05-03] MEDS: SENNA 8.6 MG TAB (SENOKOT) PO SCH (20:37)
[2020-05-03] MEDS: LATANOPROST 0.005% OPHTH SOLN 2.5 ML OU SCH (20:44)
[2020-05-04] MEDS: LEVOTHYROXINE 50MCG TABLET (0.05MG) PO SCH (05:14)
[2020-05-04 05:59] VITALS: BP 136/78
[2020-05-04] MEDS: MULTIVITAMINS/MINERALS THERAP 1 TAB PO SCH (07:37)
[2020-05-04] MEDS: ASPIRIN ENTERIC 325 MG TAB PO SCH (07:38)
[2020-05-04] MEDS: FEBUXOSTAT 40 MG TABLET (ULORIC) PO SCH (07:38)
[2020-05-04] MEDS: LACTOBACILLUS ACIDOPHILUS CAP (BACID) PO SCH ×3 (07:38→17:48)
[2020-05-04] MEDS: CARVedilol 12.5 MG TAB PO SCH ×2 (07:38→20:59)
[2020-05-04] MEDS: DOCUSATE SODIUM 100 MG CAP PO SCH ×2 (07:38→20:57)
[2020-05-04] MEDS: PANTOPRAZOLE 40MG TAB (PROTONIX) PO SCH (07:39)
[2020-05-04] MEDS: VENLAFAXINE **XR** 37.5 MG CAPSULE PO SCH (07:39)
[2020-05-04] MEDS: **hydrALAZINE** 50 MG TAB PO SCH ×3 (07:39→20:58)
[2020-05-04] MEDS: amLODIPine 5 MG TAB PO SCH ×2 (07:39→20:59)
[2020-05-04] MEDS: HumaLOG INSULIN (NovoLOG) PER UNIT SC SCH ×4 (07:40→21:00)
[2020-05-04] MEDS: HEPARIN SOD (PORCINE) 5000UNITS/ML 1ML VIAL/SYRINGE SC SCH ×2 (07:40→20:57)
[2020-05-04] MEDS: ACETAMINOPHEN 500 MG TAB PO SCH ×3 (07:41→20:58)
[2020-05-04] MEDS: OYSTER SHELL CALCIUM 500 MG TAB PO SCH (07:41)
[2020-05-04] MEDS: REMEDY PHYTOPLEX Z-GUARD PASTE 113GM TUBE (FROM STOREROOM PRODUCT) TOP SCH ×3 (07:42→21:00)
--- NOTE | 2020-05-04 10:48 | IPNPDOC ---
Text Note Date of Service The patient was seen on 05/04/20. NOTE SUBJECTIVE: Patient was seen and examined today at bedside. He states he is feeling well overall, his left shoulder pain is improved today as his brace was adjusted. Tolerating dialysis without any issues. States he believes he will be in ARU until 05/12. OBJECTIVE: PHYSICAL EXAMINATION: VITAL SIGNS: Please see below. GENERAL: Alert, sitting up comfortably in a chair, in no acute distress HEENT: NC, AT, moist mucous membranes, right IJ hemodialysis catheter present. CARDIOVASCULAR: RRR, normal S1 and S2 RESPIRATORY: CTAB, no wheezing, rhonchi, or rales ABDOMINAL: Soft, nontender, nondistended EXTREMITIES: Trace bilateral lower extremity edema. Hard brace over the left shoulder due to recent fracture. ASSESSMENT/PLAN: 69 year old male with ESRD who was admitted with a left shoulder fracture after a mechanical fall 1. ESRD on hemodialysis. He will continue on [facility] dialysis schedule while at rehab. 2. Hypertension. Well controlled. Continue current dose of Amlodipine 5 mg twice a day, Coreg 12.5 mg twice a day, and Hydralazine 50 mg three times a day. 3. Anemia and end-stage renal disease. Continue on Aranesp and Venofer with dialysis. Hemoglobin level has been stable at 9.0. 4. Chronic gout secondary to chronic kidney disease. Continue Uloric 80 mg daily. 5. Secondary hyperparathyroidism. Continue Calcitriol to 0.25 mcg on Friday, Friday, Friday. Thank you for the consultation on this patient, we will continue to follow along. VS,Fishbone, I+O VS, Fishbone, I+O Vital Signs Date Time Temp Pulse Resp B/P (MAP) Pulse Ox O2 Delivery O2 Flow Rate FiO2 05/04/20 07:39 136/78 05/04/20 07:39 78 05/04/20 05:59 97.2 17 95 05/03/20 14:00 Room Air I&O- Last 24 Hours up to 6 AM 05/04/20 06:00 Intake Total 1035 ml Output Total 200 ml Balance 835 ml OFELIA REEVES D.O. May 04, 2020 10:48
[2020-05-04] MEDS ORDERED: DARBEPOETIN 100 MCG/0.5 ML *DIALYSIS* SYRINGE (J0882) IV SCH (11:15)
--- NOTE | 2020-05-04 11:42 | IPNPDOC ---
PM&R Progress Note DATE OF SERVICE: May 04, 2020 [employer] Final Progress Note Subjective; Patient seen walking in the hallway in his sneakers, stating he feels good and has not complaints. REVIEW OF SYSTEMS: The following is a completed review of systems and has been reviewed. Review of systems otherwise unremarkable. PAIN: Patient self reports left arm pain EYES: No recent vision changes EARS, NOSE, & THROAT: No throat pain, or dysphagia, or rhinorrhea CARDIOVASCULAR: Denies chest pain or palpitations PULMONARY: Denies shortness of breath GASTROINTESTINAL: Denies constipation/diarrhea GENITOURINARY: denies dysuria MUSCULOSKELETAL: left arm pain NEUROLOGICAL:denies paresthesias or tremor HEMATOLOGICAL: + ecchymosis SKIN: denies rash PSYCHIATRIC: Unremarkable All other review of systems found to be negative. PHYSICAL EXAMINATION: VITAL SIGNS: Please see below. GENERAL: Pleasant and cooperative. No acute distress. HEENT: PERRL. Extraocular movements intact. Clear conjunctiva CARDIOVASCULAR: Regular rate and rhythm. No murmurs, rubs, or gallops LUNGS: Clear to auscultation bilaterally. No wheezes. No rhonchi ABDOMEN: Soft, nontender, nondistended. Positive bowel sounds. Normal active bowel sounds NEUROLOGICAL: Alert and oriented times three. Cranial nerves II through XII grossly intact. Sensation grossly intact EXTREMITIES: 5\5 strength RUE, banking consultant and wrist extension 5/5 left arm (limited due to fracture) 5\5 strength right lower extremity. 5/5 strength in left lower extremity. SKIN: intact, areas of bruising under left shoulder brace without any open areas -Left hand and forearm with no edema GOALS:Mod-I with quad cane household distances, dressing, bathing, toileting, functional transfers and bed mobility ASSESSMENT:69-year-old M with past medical history of ckd who presents status post recently initiated HD for ESRD and left humeral fracture PLAN: 1. Rehab- PT/OT advance gait and ADLs, c/u NWB to LUE, brace to be worn at all times except for skin checks, walking with quad cane 2. Ortho- s/p left proximal humeral fracture with left arm swelling, recent US negative for DVT-f/u ortho as outpatient-swelling resolved - Moran brace adjusted today 4. CArdiac- chronic CHF, c/u daily weights, fluid restriction- fluid management to be followed by renal -cardioprotection c/u ASA -HLD- c/u statin -HTN- c/u BP meds and adjust prn -medicine consulted to assist in overall management 5. Renal- ESRD on HD with chronic anemia, per renal management -secondary hyperparathyroidism c/u calcitriol 6. GI ppx- protonix 7. DVT ppx- heparin 8. Endo- hx of DM c/u ISS- hyperglycemia improving will increase evening dose to 10 units 9. PAin- tylneol and oxycodone, on Effexor 10. Dispo- 05-12-20 to home, progressing towards goals Allergies Coded Allergies: Sulfa (Sulfonamide Antibiotics) (Verified Allergy, Unknown, 04/17/20) allopurinol (Verified Allergy, Unknown, 04/17/20) clindamycin (Verified Allergy, Unknown, 04/17/20) prochlorperazine (Verified Allergy, Unknown, 04/17/20) sulfamethoxazole (Verified Allergy, Unknown, 04/17/20) trimethoprim (Verified Allergy, Unknown, 04/17/20) Vital Signs Vital Signs Date Time Temp Pulse Resp B/P (MAP) Pulse Ox O2 Delivery O2 Flow Rate FiO2 05/04/20 07:39 136/78 05/04/20 07:39 78 05/04/20 05:59 97.2 17 95 05/03/20 14:00 Room Air Laboratory Data Labs 24H Laboratory Tests 2 05/03/20 16:33: Bedside Glucose (Misc Panel) 212H 05/03/20 19:31: Bedside Glucose (Misc Panel) 227H 05/04/20 05:37: Bedside Glucose (Misc Panel) 187H 05/04/20 11:22: Bedside Glucose (Misc Panel) 188H Microbiology Microbiology 04/28/20 Blood Culture - Final, Complete NO GROWTH AFTER 5 DAYS 04/28/20 Blood Culture - Final, Complete NO GROWTH AFTER 5 DAYS Current Medications Current Medications Current Medications Medications (Trade) Dose Ordered Sig/Raghu Route PRN Reason Start Time Stop Time Status Last Admin Dose Admin Acetaminophen (Tylenol Tab) 1,000 mg TID PO 04/27/20 21:00 05/04/20 07:41 Amlodipine Besylate (Norvasc) 5 mg BID PO 04/27/20 21:00 05/04/20 07:39 Aspirin (Ecotrin) 325 mg DAILY PO 04/28/20 09:00 05/04/20 07:38 Calcitriol (Rocaltrol) 0.5 mcg MoWeFr@0900 PO 04/28/20 09:00 05/03/20 08:47 Calcium Carbonate (Oscal) 500 mg DAILY PO 04/28/20 09:00 05/04/20 07:41 Carvedilol (COReg) 12.5 mg BID PO 04/27/20 21:00 05/04/20 07:38 Darbepoetin Giovani (Aranesp (Dialysis Use)) 100 mcg HD IV 04/28/20 11:30 05/04/20 11:10 DC Darbepoetin Giovani (Aranesp (Dialysis Use)) 200 mcg HD IV 05/04/20 11:15 Dextrose (Dextrose 50%) 25 ml ASDIRECTED PRN IV SEE LABEL COMMENTS 04/27/20 16:15 Docusate Sodium (Colace) 100 mg BID PO 04/27/20 21:00 05/04/20 07:38 Febuxostat (Uloric) 80 mg DAILY PO 04/28/20 09:00 05/04/20 07:38 Ferrous Sulfate (Ferrous Sulfate) 325 mg QHS PO 04/27/20 21:00 05/03/20 20:36 Glucagon (Glucagon) 1 mg ASDIRECTED PRN SC SEE LABEL COMMENTS 04/27/20 16:15 Glucose (Glucose) 16 GM ASDIRECTED PRN PO SEE LABEL COMMENTS 04/27/20 16:15 Heparin Sodium (Porcine) (Heparin) 5,000 units Q12H SC 04/27/20 21:00 05/04/20 07:40 Home Med (Med Rec Complete!) ASDIRECTED XX 04/27/20 19:15 04/27/20 19:05 DC Hydralazine HCl (Apresoline) 50 mg TID PO 04/27/20 21:00 05/04/20 07:39 Insulin Detemir (Levemir Insulin) 5 units QHS SC 04/29/20 21:00 05/03/20 10:38 DC 05/02/20 20:52 Insulin Detemir (Levemir Insulin) 10 units QHS SC 05/03/20 21:00 05/03/20 20:35 Insulin Human Lispro (HumaLOG INSULIN) SEE PROTOCOL TABLE AC SC 04/28/20 07:30 05/04/20 07:40 Insulin Human Lispro (HumaLOG INSULIN) SEE PROTOCOL TABLE QHS SC 04/27/20 21:00 05/02/20 20:52 Iron (Venofer) 100 mg HD IV 04/28/20 11:30 Lactobacillus Acidophilus (Bacid) 1 ea WM PO 04/28/20 09:00 05/04/20 07:38 Latanoprost (Xalatan 0.005% Op Soln) 1 drop QHS OU 04/27/20 21:00 05/03/20 20:44 Levothyroxine Sodium (Synthroid) 50 mcg DAILY@06 PO 04/28/20 06:00 05/04/20 05:14 Multivitamins (Theragram-M) 1 tab DAILY PO 04/28/20 09:00 05/04/20 07:37 Ondansetron HCl (Zofran Odt) 4 mg Q4HP PRN PO NAUSEA OR VOMITING 04/27/20 16:15 Oxycodone HCl (Roxicodone, Oxyir) 5 mg Q4HP PRN PO PAIN 04/27/20 16:15 05/02/20 08:47 Pantoprazole Sodium (Protonix) 40 mg DAILY PO 04/28/20 09:00 05/04/20 07:39 Senna (Senokot) 1 tab QHS PO 04/27/20 21:00 05/03/20 20:37 Simvastatin (Zocor) 20 mg QHS PO 04/27/20 21:00 05/03/20 20:36 Simvastatin (Zocor) 40 mg QHS PO 04/27/20 21:00 04/27/20 19:28 DC Venlafaxine HCl (Effexor Xr) 37.5 mg DAILY PO 04/28/20 09:00 05/04/20 07:39 DOMINIC VANESSA MD May 04, 2020 11:42
--- NOTE | 2020-05-04 12:20 | IPN ---
DATE: 05/02/2020 SUBJECTIVE: Mr. Caban is seen this morning on his bedside. He is sitting in the chair currently and reports increased pain in his left shoulder. He has an ice pack on his left shoulder and left arm remains in the sling. He denies any nausea, vomiting, dyspnea or chest pain. PHYSICAL EXAMINATION: Temperature 97.6 degrees Fahrenheit, heart rate 95 per minute, respiratory rate 18 per minute, blood pressure 154/90 mmHg and oxygen saturation 95% on room air. Head is atraumatic. Neck is supple and without JVD or thyroid enlargement. Left-sided Permacath is present on upper chest. His left arm is in the sling. Heart sounds are somewhat tachycardic. Lungs sound clear to auscultation. Abdomen is soft and nontender, bowel sounds normal. Extremities without any cyanosis or clubbing. Neurologically, he is at baseline mentation without a focal deficit. LABORATORY DATA: Labs from yesterday were reviewed already and he did not have any new labs done today. PROBLEMS: 1. End-stage renal disease: Patient has recently initiated hemodialysis during this admission. He was dialyzed yesterday and he was dialyzed on Friday and will plan to dialyze him later today. We will remove only minimal amount of fluid. 2. Anemia: His anemia has been gradually improving. We will continue with weekly dose of Aranesp. 3. Congestive heart failure: Volume status seems clinically well compensated. No changes are being made today. MTDD
[2020-05-04] MEDS ORDERED: DARBEPOETIN 200MCG/0.4ML *DIALYSIS* SYRINGE (J0882 PER 1MCG) IV SCH (13:45)
[2020-05-04 14:00] VITALS: BP 136/65
[2020-05-04 20:00] VITALS: BP 160/58
[2020-05-04] MEDS: SENNA 8.6 MG TAB (SENOKOT) PO SCH (20:57)
[2020-05-04] MEDS: LEVEMIR (INSULIN DETEMIR) 1 UNITS/0.01ML SC SCH (20:57)
[2020-05-04] MEDS: FERROUS SULFATE 325MG TAB PO SCH (20:58)
[2020-05-04] MEDS: LATANOPROST 0.005% OPHTH SOLN 2.5 ML OU SCH (21:00)
[2020-05-04] MEDS: SIMVASTATIN 20 MG TAB PO SCH (21:01)
[2020-05-05] MEDS: LEVOTHYROXINE 50MCG TABLET (0.05MG) PO SCH (05:22)
[2020-05-05 06:00] VITALS: BP 162/80
[2020-05-05 07:26] LABS: BASO % 0.5 % (0.0-1.0); EOS # 0.4 10^3/uL (0.0-0.5); EOS % 6.4 % (0.0-3.0); HEMATOCRIT 27.8 % (42.0-52.0); HEMOGLOBIN 9.2 g/dl (13.5-17.5); LYMPH # 0.8 10^3/uL (1.5-5.0); LYMPH % 11.7 % (24.0-44.0); MEAN CORPUSCULAR HEMOGLOBIN 33.5 pg (27.0-33.0); MEAN CORPUSCULAR HGB CONC 33.1 g/dl (32.0-36.5); MEAN CORPUSCULAR VOLUME 101.1 fl (80.0-96.0); MONO # 0.5 10^3/uL (0.0-0.8); MONO % 7.2 % (0.0-5.0); NEUTROPHILS # 4.7 10^3/uL (1.5-8.5); NEUTROPHILS % 73.3 % (36.0-66.0); PLATELET COUNT, AUTOMATED 188 10^3/uL (150-450); RED BLOOD COUNT 2.75 10^6/uL (4.30-6.10); WHITE BLOOD COUNT 6.4 10^3/uL (4.0-10.0)
[2020-05-05 07:50] LABS: CALCIUM LEVEL 8.2 MG/DL (8.8-10.2); CREATININE FOR GFR 2.59 MG/DL (0.70-1.30); GLOMERULAR FILTRATION RATE 26.2 (>42); POTASSIUM SERUM 3.8 MEQ/L (3.5-5.1)
[2020-05-05] MEDS: ACETAMINOPHEN 500 MG TAB PO SCH ×3 (09:11→21:13)
[2020-05-05] MEDS: ASPIRIN ENTERIC 325 MG TAB PO SCH (09:11)
[2020-05-05] MEDS: FEBUXOSTAT 40 MG TABLET (ULORIC) PO SCH (09:12)
[2020-05-05] MEDS: amLODIPine 5 MG TAB PO SCH ×2 (09:12→21:12)
[2020-05-05] MEDS: CALCITRIOL 0.25 MCG CAP (S0169) PO SCH (09:12)
[2020-05-05] MEDS: **hydrALAZINE** 50 MG TAB PO SCH ×3 (09:12→21:12)
[2020-05-05] MEDS: LACTOBACILLUS ACIDOPHILUS CAP (BACID) PO SCH ×3 (09:12→17:07)
[2020-05-05] MEDS: PANTOPRAZOLE 40MG TAB (PROTONIX) PO SCH (09:12)
[2020-05-05] MEDS: VENLAFAXINE **XR** 37.5 MG CAPSULE PO SCH (09:12)
[2020-05-05] MEDS: OYSTER SHELL CALCIUM 500 MG TAB PO SCH (09:13)
[2020-05-05] MEDS: CARVedilol 12.5 MG TAB PO SCH ×2 (09:13→21:13)
[2020-05-05] MEDS: MULTIVITAMINS/MINERALS THERAP 1 TAB PO SCH (09:13)
[2020-05-05] MEDS: DOCUSATE SODIUM 100 MG CAP PO SCH ×2 (09:13→21:13)
[2020-05-05] MEDS: HumaLOG INSULIN (NovoLOG) PER UNIT SC SCH ×4 (09:14→21:00)
[2020-05-05] MEDS: REMEDY PHYTOPLEX Z-GUARD PASTE 113GM TUBE (FROM STOREROOM PRODUCT) TOP SCH ×3 (09:14→21:14)
[2020-05-05] MEDS: HEPARIN SOD (PORCINE) 5000UNITS/ML 1ML VIAL/SYRINGE SC SCH ×2 (09:14→21:12)
--- NOTE | 2020-05-05 10:23 | IPNPDOC ---
Text Note Date of Service The patient was seen on 05/05/20. NOTE SUBJECTIVE: Patient was seen and examined today at bedside. Tolerating dialysis without any issues. No concerns today. OBJECTIVE: PHYSICAL EXAMINATION: VITAL SIGNS: Please see below. GENERAL: Alert, sitting up comfortably in a chair, in no acute distress HEENT: NC, AT, moist mucous membranes, right IJ hemodialysis catheter present. CARDIOVASCULAR: RRR, normal S1 and S2 RESPIRATORY: CTAB, no wheezing, rhonchi, or rales ABDOMINAL: Soft, nontender, nondistended EXTREMITIES: Trace bilateral lower extremity edema. Hard brace over the left shoulder due to recent fracture. ASSESSMENT/PLAN: 69 year old male with ESRD who was admitted with a left shoulder fracture after a mechanical fall 1. ESRD on hemodialysis. Cr and electrolytes stable. He will continue on [facility] di alysis schedule while at rehab. 2. Hypertension. Well controlled. Continue current dose of Amlodipine 5 mg twice a day, Coreg 12.5 mg twice a day, and Hydralazine 50 mg three times a day. 3. Anemia and end-stage renal disease. Continue on Aranesp and Venofer with dialysis. Hemoglobin level has been stable at 9.2. 4. Chronic gout secondary to chronic kidney disease. Continue Uloric 80 mg daily. 5. Secondary hyperparathyroidism. Continue Calcitriol to 0.25 mcg on Friday, Friday, Friday. Thank you for the consultation on this patient, we will continue to follow along. VS,Fishbone, I+O VS, Fishbone, I+O Laboratory Tests 05/05/20 06:56 Vital Signs Date Time Temp Pulse Resp B/P (MAP) Pulse Ox O2 Delivery O2 Flow Rate FiO2 05/05/20 09:13 79 162/80 05/05/20 06:00 97.1 17 98 Room Air I&O- Last 24 Hours up to 6 AM 05/05/20 05:59 Intake Total 660 ml Output Total 1000 ml Balance -340 ml OFELIA REEVES D.O. May 05, 2020 10:23
--- NOTE | 2020-05-05 13:13 | IPNPDOC ---
PM&R Progress Note DATE OF SERVICE: May 05, 2020 Area Supervisor Progress Note Subjective; Patient seen in his room reporting he is feeling well and that his left shoulder pain is minimal now. REVIEW OF SYSTEMS: The following is a completed review of systems and has been reviewed. Review of systems otherwise unremarkable. PAIN: Patient self reports left arm pain (improving) EYES: No recent vision changes EARS, NOSE, & THROAT: No throat pain, or dysphagia, or rhinorrhea CARDIOVASCULAR: Denies chest pain or palpitations PULMONARY: Denies shortness of breath GASTROINTESTINAL: Denies constipation/diarrhea GENITOURINARY: denies dysuria MUSCULOSKELETAL: left arm pain NEUROLOGICAL:denies paresthesias or tremor HEMATOLOGICAL: + ecchymosis SKIN: denies rash PSYCHIATRIC: Unremarkable All other review of systems found to be negative. PHYSICAL EXAMINATION: VITAL SIGNS: Please see below. GENERAL: Pleasant and cooperative. No acute distress. HEENT: PERRL. Extraocular movements intact. Clear conjunctiva CARDIOVASCULAR: Regular rate and rhythm. No murmurs, rubs, or gallops LUNGS: Clear to auscultation bilaterally. No wheezes. No rhonchi ABDOMEN: Soft, nontender, nondistended. Positive bowel sounds. Normal active bowel sounds NEUROLOGICAL: Alert and oriented times three. Cranial nerves II through XII grossly intact. Sensation grossly intact EXTREMITIES: 5\5 strength RUE, supervisor powder and primer canning and wrist extension 5/5 left arm (limited due to fracture) 5\5 strength right lower extremity. 5/5 strength in left lower extremity. SKIN: intact, areas of bruising under left shoulder brace without any open areas -Left hand and forearm with no edema GOALS:Mod-I with quad cane household distances, dressing, bathing, toileting, functional transfers and bed mobility ASSESSMENT:69-year-old M with past medical history of ckd who presents status post recently initiated HD for ESRD and left humeral fracture PLAN: 1. Rehab- PT/OT advance gait and ADLs, c/u NWB to LUE, brace to be worn at all times except for skin checks, walking with quad cane 2. Ortho- s/p left proximal humeral fracture with left arm swelling, recent US n egative for DVT-f/u ortho as outpatient-swelling resolved - Moran brace adjusted today 4. CArdiac- chronic CHF, c/u daily weights, fluid restriction- fluid management to be followed by renal -cardioprotection c/u ASA -HLD- c/u statin -HTN- elevated BPs, will increase CoReg to 25 mg BID, c/u hydralazine and amlodipine c/u to adjust prn -medicine consulted to assist in overall management 5. Renal- ESRD on HD with chronic anemia, per renal management -secondary hyperparathyroidism c/u calcitriol 6. GI ppx- protonix 7. DVT ppx- heparin 8. Endo- hx of DM c/u ISS- hyperglycemia improving c/u levemir 9. PAin- tylneol and oxycodone, on Effexor 10. Dispo- 05-12-20 to home, progressing towards goals Allergies Coded Allergies: Sulfa (Sulfonamide Antibiotics) (Verified Allergy, Unknown, 04/17/20) allopurinol (Verified Allergy, Unknown, 04/17/20) clindamycin (Verified Allergy, Unknown, 04/17/20) prochlorperazine (Verified Allergy, Unknown, 04/17/20) sulfamethoxazole (Verified Allergy, Unknown, 04/17/20) trimethoprim (Verified Allergy, Unknown, 04/17/20) Vital Signs Vital Signs Date Time Temp Pulse Resp B/P (MAP) Pulse Ox O2 Delivery O2 Flow Rate FiO2 05/05/20 09:13 79 162/80 05/05/20 06:00 97.1 17 98 Room Air Laboratory Data CBC/BMP Laboratory Tests 05/05/20 06:56 Labs 24H Laboratory Tests 2 05/04/20 17:26: Bedside Glucose (Misc Panel) 161H 05/05/20 06:02: Bedside Glucose (Misc Panel) 155H 05/05/20 06:56: Immature Granulocyte % (Auto) 0.9, Neutrophils (%) (Auto) 73.3H, Lymphocytes (%) (Auto) 11.7L, Monocytes (%) (Auto) 7.2H, Eosinophils (%) (Auto) 6.4H, Basophils (%) (Auto) 0.5, Neutrophils # (Auto) 4.7, Lymphocytes # (Auto) 0.8L, Monocytes # (Auto) 0.5, Eosinophils # (Auto) 0.4, Basophils # (Auto) 0.0, Nucleated Red Blood Cells % (auto) 0.0, Anion Gap 3L, Glomerular Filtration Rate 26.2L, Calcium Level 8.2L 05/05/20 11:34: Bedside Glucose (Misc Panel) 193H Microbiology Microbiology 04/28/20 Blood Culture - Final, Complete NO GROWTH AFTER 5 DAYS 04/28/20 Blood Culture - Final, Complete NO GROWTH AFTER 5 DAYS Current Medications Current Medications Current Medications Medications (Trade) Dose Ordered Sig/Raghu Route PRN Reason Start Time Stop Time Status Last Admin Dose Admin Acetaminophen (Tylenol Tab) 1,000 mg TID PO 04/27/20 21:00 05/05/20 09:11 Amlodipine Besylate (Norvasc) 5 mg BID PO 04/27/20 21:00 05/05/20 09:12 Aspirin (Ecotrin) 325 mg DAILY PO 04/28/20 09:00 05/05/20 09:11 Calcitriol (Rocaltrol) 0.5 mcg MoWeFr@0900 PO 04/28/20 09:00 05/05/20 09:12 Calcium Carbonate (Oscal) 500 mg DAILY PO 04/28/20 09:00 05/05/20 09:13 Carvedilol (COReg) 12.5 mg BID PO 04/27/20 21:00 05/05/20 10:50 DC 05/05/20 09:13 Carvedilol (COReg) 25 mg BID PO 05/05/20 21:00 Darbepoetin Giovani (Aranesp (Dialysis Use)) 100 mcg HD IV 04/28/20 11:30 05/04/20 11:10 DC Darbepoetin Giovani (Aranesp (Dialysis Use)) 200 mcg HD IV 05/04/20 11:15 05/04/20 13:42 DC Darbepoetin Giovani (Aranesp (Dialysis Use)) 200 mcg HD IV 05/04/20 13:45 Dextrose (Dextrose 50%) 25 ml ASDIRECTED PRN IV SEE LABEL COMMENTS 04/27/20 16:15 Docusate Sodium (Colace) 100 mg BID PO 04/27/20 21:00 05/05/20 09:13 Febuxostat (Uloric) 80 mg DAILY PO 04/28/20 09:00 05/05/20 09:12 Ferrous Sulfate (Ferrous Sulfate) 325 mg QHS PO 04/27/20 21:00 05/04/20 20:58 Glucagon (Glucagon) 1 mg ASDIRECTED PRN SC SEE LABEL COMMENTS 04/27/20 16:15 Glucose (Glucose) 16 GM ASDIRECTED PRN PO SEE LABEL COMMENTS 04/27/20 16:15 Heparin Sodium (Porcine) (Heparin) 5,000 units Q12H SC 04/27/20 21:00 05/05/20 09:14 Home Med (Med Rec Complete!) ASDIRECTED XX 04/27/20 19:15 04/27/20 19:05 DC Hydralazine HCl (Apresoline) 50 mg TID PO 04/27/20 21:00 05/05/20 09:12 Insulin Detemir (Levemir Insulin) 5 units QHS SC 04/29/20 21:00 05/03/20 10:38 DC 05/02/20 20:52 Insulin Detemir (Levemir Insulin) 10 units QHS SC 05/03/20 21:00 05/04/20 20:57 Insulin Human Lispro (HumaLOG INSULIN) SEE PROTOCOL TABLE AC SC 04/28/20 07:30 05/05/20 12:07 Insulin Human Lispro (HumaLOG INSULIN) SEE PROTOCOL TABLE QHS SC 04/27/20 21:00 05/02/20 20:52 Iron (Venofer) 100 mg HD IV 04/28/20 11:30 Lactobacillus Acidophilus (Bacid) 1 ea WM PO 04/28/20 09:00 05/05/20 12:07 Latanoprost (Xalatan 0.005% Op Soln) 1 drop QHS OU 04/27/20 21:00 05/04/20 21:00 Levothyroxine Sodium (Synthroid) 50 mcg DAILY@06 PO 04/28/20 06:00 05/05/20 05:22 Multivitamins (Theragram-M) 1 tab DAILY PO 04/28/20 09:00 05/05/20 09:13 Ondansetron HCl (Zofran Odt) 4 mg Q4HP PRN PO NAUSEA OR VOMITING 04/27/20 16:15 Oxycodone HCl (Roxicodone, Oxyir) 5 mg Q4HP PRN PO PAIN 04/27/20 16:15 05/02/20 08:47 Pantoprazole Sodium (Protonix) 40 mg DAILY PO 04/28/20 09:00 05/05/20 09:12 Senna (Senokot) 1 tab QHS PO 04/27/20 21:00 05/04/20 20:57 Simvastatin (Zocor) 20 mg QHS PO 04/27/20 21:00 05/04/20 21:01 Simvastatin (Zocor) 40 mg QHS PO 04/27/20 21:00 04/27/20 19:28 DC Venlafaxine HCl (Effexor Xr) 37.5 mg DAILY PO 04/28/20 09:00 05/05/20 09:12 DOMINIC VANESSA MD May 05, 2020 13:13
[2020-05-05 14:00] VITALS: BP 158/63
[2020-05-05 20:19] VITALS: BP 140/70
[2020-05-05] MEDS: SIMVASTATIN 20 MG TAB PO SCH (21:12)
[2020-05-05] MEDS: FERROUS SULFATE 325MG TAB PO SCH (21:12)
[2020-05-05] MEDS: SENNA 8.6 MG TAB (SENOKOT) PO SCH (21:12)
[2020-05-05] MEDS: LEVEMIR (INSULIN DETEMIR) 1 UNITS/0.01ML SC SCH (21:14)
[2020-05-05] MEDS: LATANOPROST 0.005% OPHTH SOLN 2.5 ML OU SCH (21:14)
[2020-05-06] MEDS: LEVOTHYROXINE 50MCG TABLET (0.05MG) PO SCH (05:37)
[2020-05-06 05:56] VITALS: BP 157/81
[2020-05-06] MEDS: HEPARIN SOD (PORCINE) 5000UNITS/ML 1ML VIAL/SYRINGE SC SCH ×2 (08:19→20:47)
[2020-05-06] MEDS: VENLAFAXINE **XR** 37.5 MG CAPSULE PO SCH (08:19)
[2020-05-06] MEDS: FEBUXOSTAT 40 MG TABLET (ULORIC) PO SCH (08:19)
[2020-05-06] MEDS: OYSTER SHELL CALCIUM 500 MG TAB PO SCH (08:20)
[2020-05-06] MEDS: ASPIRIN ENTERIC 325 MG TAB PO SCH (08:20)
[2020-05-06] MEDS: LACTOBACILLUS ACIDOPHILUS CAP (BACID) PO SCH ×3 (08:20→17:35)
[2020-05-06] MEDS: CARVedilol 12.5 MG TAB PO SCH ×2 (08:20→20:48)
[2020-05-06] MEDS: **hydrALAZINE** 50 MG TAB PO SCH ×3 (08:20→20:48)
[2020-05-06] MEDS: PANTOPRAZOLE 40MG TAB (PROTONIX) PO SCH (08:20)
[2020-05-06] MEDS: MULTIVITAMINS/MINERALS THERAP 1 TAB PO SCH (08:21)
[2020-05-06] MEDS: amLODIPine 5 MG TAB PO SCH ×2 (08:21→20:48)
[2020-05-06] MEDS: ACETAMINOPHEN 500 MG TAB PO SCH ×3 (08:21→20:47)
[2020-05-06] MEDS: HumaLOG INSULIN (NovoLOG) PER UNIT SC SCH ×4 (08:21→20:49)
[2020-05-06] MEDS: REMEDY PHYTOPLEX Z-GUARD PASTE 113GM TUBE (FROM STOREROOM PRODUCT) TOP SCH ×3 (08:22→20:49)
[2020-05-06] MEDS: DOCUSATE SODIUM 100 MG CAP PO SCH ×2 (08:22→20:47)
--- NOTE | 2020-05-06 11:12 | IPNPDOC ---
Text Note Date of Service The patient was seen on 05/06/20. NOTE SUBJECTIVE: Patient was seen and examined today at bedside. No new issues or concerns. Pain well controlled. Continues to work with PT/OT. Tolerating HD, next session this afternoon. OBJECTIVE: PHYSICAL EXAMINATION: VITAL SIGNS: Please see below. GENERAL: Alert, sitting up comfortably in bed, in no acute distress HEENT: NC, AT, moist mucous membranes, right IJ hemodialysis catheter present. CARDIOVASCULAR: RRR, normal S1 and S2 RESPIRATORY: CTAB, no wheezing, rhonchi, or rales ABDOMINAL: Soft, nontender, nondistended EXTREMITIES: Trace bilateral lower extremity edema. Hard brace over the left shoulder due to recent fracture. ASSESSMENT/PLAN: 69 year old male with ESRD who was admitted with a left shoulder fracture after a mechanical fall 1. ESRD on hemodialysis. Cr and electrolytes have been stable. He will continue on [facility] dialysis schedule while at rehab. 2. Hypertension. Blood pressure has remained elevated. Primary team has increased Coreg from 12.5mg BID to 25mg BID. Continue current dose of Amlodipine 5 mg BID and Hydralazine 50 mg TID. 3. Anemia and end-stage renal disease. Continue on Aranesp and Venofer with dialysis. Hemoglobin level has been stable. 4. Chronic gout secondary to chronic kidney disease. Continue Uloric 80 mg daily. 5. Secondary hyperparathyroidism. Continue Calcitriol to 0.25 mcg on Friday, Friday, Friday. Thank you for the consultation on this patient, we will continue to follow along. VS,Fishbone, I+O VS, Fishbone, I+O Vital Signs Date Time Temp Pulse Resp B/P (MAP) Pulse Ox O2 Delivery O2 Flow Rate FiO2 05/06/20 08:21 88 157/81 05/06/20 05:56 97.6 18 94 Room Air I&O- Last 24 Hours up to 6 AM 05/06/20 06:00 Intake Total 600 ml Balance 600 ml GME ATTESTATION GME ATTESTATION My faculty preceptor for this patient encounter was physically present during the encounter and was fully available. All aspects of the patient interview, e xamination, medical decision making process, and medical care plan development were reviewed and approved by the faculty preceptor. The faculty preceptor is aware and concurs with the plan as stated in the body of this note and will attest to such by his/her cosignature. ATTENDING NOTE ESRD on HD h/o metastatic Renal cell Ca HTN HFpEF anemia in ESRd SHPt Chronic gout HD today with UF goal 1.5Kg. Aranesp with HD. cont current antihypertensive regimen. OFELIA REEVES D.O. May 06, 2020 11:12 JUANA CORTEZ MD May 06, 2020 11:29
[2020-05-06 17:31] VITALS: BP 165/90
[2020-05-06 20:13] VITALS: BP 150/80
[2020-05-06] MEDS: SENNA 8.6 MG TAB (SENOKOT) PO SCH (20:47)
[2020-05-06] MEDS: SIMVASTATIN 20 MG TAB PO SCH (20:47)
[2020-05-06] MEDS: FERROUS SULFATE 325MG TAB PO SCH (20:47)
[2020-05-06] MEDS: LATANOPROST 0.005% OPHTH SOLN 2.5 ML OU SCH (20:49)
[2020-05-06] MEDS: LEVEMIR (INSULIN DETEMIR) 1 UNITS/0.01ML SC SCH (20:49)
[2020-05-07 05:47] VITALS: BP 158/78
[2020-05-07] MEDS: LEVOTHYROXINE 50MCG TABLET (0.05MG) PO SCH (05:51)
[2020-05-07] MEDS: ASPIRIN ENTERIC 325 MG TAB PO SCH (08:25)
[2020-05-07] MEDS: **hydrALAZINE** 50 MG TAB PO SCH ×3 (08:25→20:25)
[2020-05-07] MEDS: PANTOPRAZOLE 40MG TAB (PROTONIX) PO SCH (08:25)
[2020-05-07] MEDS: HEPARIN SOD (PORCINE) 5000UNITS/ML 1ML VIAL/SYRINGE SC SCH ×2 (08:25→20:24)
[2020-05-07] MEDS: CARVedilol 12.5 MG TAB PO SCH ×2 (08:25→20:25)
[2020-05-07] MEDS: ACETAMINOPHEN 500 MG TAB PO SCH ×3 (08:26→20:25)
[2020-05-07] MEDS: amLODIPine 5 MG TAB PO SCH ×2 (08:26→20:25)
[2020-05-07] MEDS: FEBUXOSTAT 40 MG TABLET (ULORIC) PO SCH (08:26)
[2020-05-07] MEDS: OYSTER SHELL CALCIUM 500 MG TAB PO SCH (08:26)
[2020-05-07] MEDS: LACTOBACILLUS ACIDOPHILUS CAP (BACID) PO SCH ×3 (08:26→17:13)
[2020-05-07] MEDS: DOCUSATE SODIUM 100 MG CAP PO SCH ×2 (08:26→20:25)
[2020-05-07] MEDS: VENLAFAXINE **XR** 37.5 MG CAPSULE PO SCH (08:26)
[2020-05-07] MEDS: MULTIVITAMINS/MINERALS THERAP 1 TAB PO SCH (08:26)
[2020-05-07] MEDS: REMEDY PHYTOPLEX Z-GUARD PASTE 113GM TUBE (FROM STOREROOM PRODUCT) TOP SCH ×3 (08:27→20:27)
[2020-05-07] MEDS: HumaLOG INSULIN (NovoLOG) PER UNIT SC SCH ×4 (08:27→20:27)
[2020-05-07 14:00] VITALS: BP 163/77
[2020-05-07 20:00] VITALS: BP 150/70
[2020-05-07] MEDS: SENNA 8.6 MG TAB (SENOKOT) PO SCH (20:24)
[2020-05-07] MEDS: FERROUS SULFATE 325MG TAB PO SCH (20:25)
[2020-05-07] MEDS: SIMVASTATIN 20 MG TAB PO SCH (20:25)
[2020-05-07] MEDS: LEVEMIR (INSULIN DETEMIR) 1 UNITS/0.01ML SC SCH (20:26)
[2020-05-07] MEDS: LATANOPROST 0.005% OPHTH SOLN 2.5 ML OU SCH (20:27)
[2020-05-08] MEDS: LEVOTHYROXINE 50MCG TABLET (0.05MG) PO SCH (05:18)
[2020-05-08 05:40] VITALS: BP 160/90
[2020-05-08 06:15] LABS: BASO # 0.1 10^3/uL (0.0-0.2); BASO % 0.8 % (0.0-1.0); EOS # 0.4 10^3/uL (0.0-0.5); EOS % 5.5 % (0.0-3.0); HEMATOCRIT 28.2 % (42.0-52.0); HEMOGLOBIN 9.3 g/dl (13.5-17.5); LYMPH % 13.1 % (24.0-44.0); MEAN CORPUSCULAR HEMOGLOBIN 33.7 pg (27.0-33.0); MEAN CORPUSCULAR VOLUME 102.2 fl (80.0-96.0); MONO # 0.6 10^3/uL (0.0-0.8); MONO % 7.4 % (0.0-5.0); NEUTROPHILS # 5.4 10^3/uL (1.5-8.5); NEUTROPHILS % 72.4 % (36.0-66.0); PLATELET COUNT, AUTOMATED 202 10^3/uL (150-450); RED BLOOD COUNT 2.76 10^6/uL (4.30-6.10); WHITE BLOOD COUNT 7.5 10^3/uL (4.0-10.0)
[2020-05-08 06:36] LABS: CREATININE FOR GFR 2.96 MG/DL (0.70-1.30); GLOMERULAR FILTRATION RATE 22.5 (>42); POTASSIUM SERUM 3.5 MEQ/L (3.5-5.1)
[2020-05-08] MEDS: CALCITRIOL 0.25 MCG CAP (S0169) PO SCH (08:59)
[2020-05-08] MEDS: MULTIVITAMINS/MINERALS THERAP 1 TAB PO SCH (08:59)
[2020-05-08] MEDS: HumaLOG INSULIN (NovoLOG) PER UNIT SC SCH ×4 (08:59→20:51)
[2020-05-08] MEDS: LACTOBACILLUS ACIDOPHILUS CAP (BACID) PO SCH ×3 (08:59→17:07)
[2020-05-08] MEDS: OYSTER SHELL CALCIUM 500 MG TAB PO SCH (08:59)
[2020-05-08] MEDS: DOCUSATE SODIUM 100 MG CAP PO SCH ×2 (09:00→20:42)
[2020-05-08] MEDS: ASPIRIN ENTERIC 325 MG TAB PO SCH (09:00)
[2020-05-08] MEDS: FEBUXOSTAT 40 MG TABLET (ULORIC) PO SCH (09:00)
[2020-05-08] MEDS: REMEDY PHYTOPLEX Z-GUARD PASTE 113GM TUBE (FROM STOREROOM PRODUCT) TOP SCH ×3 (09:00→20:44)
[2020-05-08] MEDS: PANTOPRAZOLE 40MG TAB (PROTONIX) PO SCH (09:00)
[2020-05-08] MEDS: VENLAFAXINE **XR** 37.5 MG CAPSULE PO SCH (09:00)
[2020-05-08] MEDS: ACETAMINOPHEN 500 MG TAB PO SCH ×3 (09:01→20:39)
[2020-05-08] MEDS: amLODIPine 5 MG TAB PO SCH ×2 (09:02→20:41)
[2020-05-08] MEDS: **hydrALAZINE** 50 MG TAB PO SCH ×3 (09:02→20:41)
[2020-05-08] MEDS: CARVedilol 12.5 MG TAB PO SCH ×2 (09:03→20:40)
[2020-05-08] MEDS: HEPARIN SOD (PORCINE) 5000UNITS/ML 1ML VIAL/SYRINGE SC SCH ×2 (09:03→20:42)
--- NOTE | 2020-05-08 11:03 | IPNPDOC ---
Text Note Date of Service The patient was seen on 05/08/20. NOTE SUBJECTIVE: Patient was seen and examined today at bedside. No new issues or concerns. Continues to work with PT/OT. Reports his pain has been well controlled. Tolerating HD, next session tomorrow. OBJECTIVE: PHYSICAL EXAMINATION: VITAL SIGNS: Please see below. GENERAL: Alert, sitting up comfortably in bed, in no acute distress HEENT: NC, AT, moist mucous membranes, right IJ hemodialysis catheter present. CARDIOVASCULAR: RRR, normal S1 and S2 RESPIRATORY: CTAB, no wheezing, rhonchi, or rales ABDOMINAL: Soft, nontender, nondistended EXTREMITIES: Trace bilateral lower extremity edema. Hard brace over the left shoulder due to recent humerus fracture. ASSESSMENT/PLAN: 69 year old male with ESRD who was admitted with a left shoulder fracture after a mechanical fall 1. ESRD on hemodialysis. Cr and electrolytes have been stable. He will continue on [facility] dialysis schedule while at rehab. 2. Hypertension. Blood pressure has remained elevated despite pain control. Primary team has increased Coreg from 12.5mg BID to 25mg BID. Continue current dose of Amlodipine 5 mg BID and Hydralazine 50 mg TID. 3. Anemia and end-stage renal disease. Continue on Aranesp and Venofer with dialysis. Hemoglobin level stable at 9.3. 4. Chronic gout secondary to chronic kidney disease. Continue Uloric 80 mg daily. 5. Secondary hyperparathyroidism. Continue Calcitriol to 0.25 mcg on Friday, Friday, Friday. Thank you for the consultation on this patient, we will continue to follow along. VS,Robbbone, I+O VS, Fishbone, I+O Laboratory Tests 05/08/20 05:44 Vital Signs Date Time Temp Pulse Resp B/P (MAP) Pulse Ox O2 Delivery O2 Flow Rate FiO2 05/08/20 09:02 142/77 05/08/20 09:02 94 05/08/20 05:44 97.0 17 95 Room Air I&O- Last 24 Hours up to 6 AM 05/08/20 05:59 Intake Total 660 ml Balance 660 ml GME ATTESTATION GME ATTESTATION My faculty preceptor for this patient encounter was physically present during the encounter and was fully available. All aspects of the patient interview, examination, medical decision making process, and medical care plan development were reviewed and approved by the faculty preceptor. The faculty preceptor is aware and concurs with the plan as stated in the body of this note and will at test to such by his/her cosignature. ATTENDING NOTE ANGELLA on CKD4 anemia in CKD Sec hyperparathyroidism CHF Chronic Gout HTN Cont TIW HD. Monitor for renal recovery. Volume status optimized. PT in rehab for Lt humerus fracture. OFELIA REEVES D.O. May 08, 2020 11:03 JUANA CORTEZ MD May 10, 2020 20:47
[2020-05-08 14:00] VITALS: BP 164/80
--- NOTE | 2020-05-08 17:16 | IPN ---
DATE: 05/07/2020 SUBJECTIVE: Patient was seen and examined at the bedside today morning. He is afebrile, hemodynamically stable. He denies any active complaints at this time. He was dialyzed yesterday. He tolerated the hemodialysis procedure well. OBJECTIVE: Vital signs: Temperature 97.8 degrees Fahrenheit, blood pressure 150/70, pulse is 80, respiratory rate 18, saturating 95% on room air. Intake and output: The urine output is not recorded. Ultrafiltration with hemodialysis was 3 liters. Weight in the bed scale was 115.4 kg. PHYSICAL EXAMINATION: General: Patient is awake, alert and oriented x3, lying in bed in no apparent distress. Head and Neck Exam: Extraocular muscles intact, pupils equally round and reactive to light. Mucous membranes are moist. Neck is supple. There is no JVD. Cardiovascular: S1, S2, regular rate. No edema of the bilateral lower extremities. He has a right IJ tunnel hemodialysis catheter. Respiratory: Chest is clear to auscultation bilaterally. Bilateral equal air entry. No rales or rhonchi. Abdomen: Soft, positive bowel sounds, nontender. No organomegaly. Musculoskeletal: No clubbing or cyanosis. Pulses are 2+. The patient has left arm and shoulder brace and sling because of a left shoulder fracture. SLOPE RUNNER: No focal deficit. Power 5/5 in all extremities. LABORATORY REVIEW: CBC showed a WBC of 6.4, hemoglobin 9.2 and that is from May 05. And, BMP is from May 05 as well. There are no new labs available. CURRENT INPATIENT MEDICATIONS: Patient's medications were all reviewed by myself. There is no change in the medications today as compared with yesterday. ASSESSMENT AND PLAN: 1. End-stage renal disease: Patient was dialyzed on Friday. His regular dialysis is on Friday, , Friday. Next hemodialysis will be done on Friday next week. 2. Hypertension: Blood pressure is controlled with the current regimen of amlodipine 5 mg p.o. twice a day, Coreg 25 mg p.o. twice a day. Hydralazine 50 mg p.o. three times a day. 3. Secondary hypoparathyroidism. Continue current dose of calcitriol 0.6 mcg p.o. Friday, Friday, Friday. 4. Anemia and end-state renal disease: Continue current dose of Aranesp with dialysis. 5. Chronic gout secondary to end-stage renal disease. Continue current dose of Uloric 80 mg p.o. daily. 6. Diabetes mellitus type 2. Continue current dose of insulin sliding scale and insulin Levemir. MTDD
[2020-05-08 20:00] VITALS: BP 162/86
[2020-05-08] MEDS: LEVEMIR (INSULIN DETEMIR) 1 UNITS/0.01ML SC SCH (20:42)
[2020-05-08] MEDS: LATANOPROST 0.005% OPHTH SOLN 2.5 ML OU SCH (20:42)
[2020-05-08] MEDS: SENNA 8.6 MG TAB (SENOKOT) PO SCH (20:43)
[2020-05-08] MEDS: SIMVASTATIN 20 MG TAB PO SCH (20:43)
[2020-05-09 05:21] VITALS: BP 152/82
[2020-05-09] MEDS: LEVOTHYROXINE 50MCG TABLET (0.05MG) PO SCH (05:38)
[2020-05-09] MEDS: REMEDY PHYTOPLEX Z-GUARD PASTE 113GM TUBE (FROM STOREROOM PRODUCT) TOP SCH ×3 (09:00→21:00)
[2020-05-09] MEDS: **hydrALAZINE** 50 MG TAB PO SCH ×3 (09:22→21:06)
[2020-05-09] MEDS: HEPARIN SOD (PORCINE) 5000UNITS/ML 1ML VIAL/SYRINGE SC SCH ×2 (09:22→21:08)
[2020-05-09] MEDS: FEBUXOSTAT 40 MG TABLET (ULORIC) PO SCH (09:23)
[2020-05-09] MEDS: ACETAMINOPHEN 500 MG TAB PO SCH ×3 (09:23→21:06)
[2020-05-09] MEDS: ASPIRIN ENTERIC 325 MG TAB PO SCH (09:23)
[2020-05-09] MEDS: VENLAFAXINE **XR** 37.5 MG CAPSULE PO SCH (09:23)
[2020-05-09] MEDS: LACTOBACILLUS ACIDOPHILUS CAP (BACID) PO SCH ×3 (09:23→17:22)
[2020-05-09] MEDS: CARVedilol 12.5 MG TAB PO SCH ×2 (09:23→21:05)
[2020-05-09] MEDS: PANTOPRAZOLE 40MG TAB (PROTONIX) PO SCH (09:23)
[2020-05-09] MEDS: DOCUSATE SODIUM 100 MG CAP PO SCH ×2 (09:24→21:21)
[2020-05-09] MEDS: OYSTER SHELL CALCIUM 500 MG TAB PO SCH (09:24)
[2020-05-09] MEDS: HumaLOG INSULIN (NovoLOG) PER UNIT SC SCH ×4 (09:24→21:00)
[2020-05-09] MEDS: amLODIPine 5 MG TAB PO SCH ×2 (09:24→21:04)
[2020-05-09] MEDS: MULTIVITAMINS/MINERALS THERAP 1 TAB PO SCH (09:24)
--- NOTE | 2020-05-09 11:47 | IPNPDOC ---
Text Note Date of Service The patient was seen on 05/09/20. NOTE SUBJECTIVE: Patient was seen and examined today at bedside. He is due for HD today. Continues to work with PT/OT. No new issues or concerns. OBJECTIVE: PHYSICAL EXAMINATION: VITAL SIGNS: Please see below. GENERAL: Alert, sitting up comfortably in bed, in no acute distress HEENT: NC, AT, moist mucous membranes, right IJ hemodialysis catheter present. CARDIOVASCULAR: RRR, normal S1 and S2 RESPIRATORY: CTAB, no wheezing, rhonchi, or rales ABDOMINAL: Soft, nontender, nondistended EXTREMITIES: Trace bilateral lower extremity edema. Hard brace over the left shoulder due to recent humerus fracture. ASSESSMENT/PLAN: 69 year old male with ESRD who was admitted with a left shoulder fracture after a mechanical fall 1. ESRD on hemodialysis. Cr and electrolytes have been stable. He will continue on [facility] dialysis schedule while at rehab. 2. Hypertension. Blood pressure has remained elevated despite pain control. Primary team has increased Coreg from 12.5mg BID to 25mg BID. Continue current dose of Amlodipine 5 mg BID and Hydralazine 50 mg TID. 3. Anemia and end-stage renal disease. Continue on Aranesp and Venofer with dialysis. Hemoglobin level has been stable. 4. Chronic gout secondary to chronic kidney disease. Continue Uloric 80 mg daily. 5. Secondary hyperparathyroidism. Continue Calcitriol to 0.25 mcg on Friday, Friday, Friday. Thank you for the consultation on this patient, we will continue to follow along. VS,Fishbone, I+O VS, Fishbone, I+O Vital Signs Date Time Temp Pulse Resp B/P (MAP) Pulse Ox O2 Delivery O2 Flow Rate FiO2 05/09/20 09:22 152/82 05/09/20 05:21 98.0 77 18 96 Room Air I&O- Last 24 Hours up to 6 AM 05/09/20 06:00 Intake Total 1200 ml Balance 1200 ml GME ATTESTATION GME ATTESTATION My faculty preceptor for this patient encounter was physically present during the encounter and was fully available. All aspects of the patient interview, examination, medical decision making process, and medical care plan development were reviewed and approved by the faculty preceptor. The faculty preceptor is aware and concurs with the plan as stated in the body of this note and will attest to such by his/her cosignature. ATTENDING NOTE ANGELLA on CKD4 requiring HD. HTN Anemia in CKD HD today. HTN and volume status optimized. Monitor renal function for recovery. OFELIA REEVES D.O. May 09, 2020 11:47 JUANA CORTEZ MD May 10, 2020 21:39
[2020-05-09 17:21] VITALS: BP 140/80
[2020-05-09 21:00] VITALS: BP 162/74
[2020-05-09] MEDS: SENNA 8.6 MG TAB (SENOKOT) PO SCH (21:06)
[2020-05-09] MEDS: SIMVASTATIN 20 MG TAB PO SCH (21:06)
[2020-05-09] MEDS: LEVEMIR (INSULIN DETEMIR) 1 UNITS/0.01ML SC SCH (21:07)
[2020-05-09] MEDS: LATANOPROST 0.005% OPHTH SOLN 2.5 ML OU SCH (21:08)
[2020-05-10] MEDS: LEVOTHYROXINE 50MCG TABLET (0.05MG) PO SCH (05:54)
[2020-05-10 06:00] VITALS: BP 167/78
[2020-05-10 07:03] LABS: BASO % 0.6 % (0.0-1.0); EOS # 0.4 10^3/uL (0.0-0.5); EOS % 5.5 % (0.0-3.0); HEMATOCRIT 28.7 % (42.0-52.0); HEMOGLOBIN 9.6 g/dl (13.5-17.5); LYMPH # 0.8 10^3/uL (1.5-5.0); MEAN CORPUSCULAR HEMOGLOBIN 34.2 pg (27.0-33.0); MEAN CORPUSCULAR HGB CONC 33.4 g/dl (32.0-36.5); MEAN CORPUSCULAR VOLUME 102.1 fl (80.0-96.0); MONO # 0.5 10^3/uL (0.0-0.8); MONO % 8.1 % (0.0-5.0); NEUTROPHILS # 4.7 10^3/uL (1.5-8.5); NEUTROPHILS % 73.3 % (36.0-66.0); PLATELET COUNT, AUTOMATED 186 10^3/uL (150-450); RED BLOOD COUNT 2.81 10^6/uL (4.30-6.10); WHITE BLOOD COUNT 6.4 10^3/uL (4.0-10.0)
[2020-05-10 07:28] LABS: CALCIUM LEVEL 8.2 MG/DL (8.8-10.2); CREATININE FOR GFR 2.65 MG/DL (0.70-1.30); GLOMERULAR FILTRATION RATE 25.5 (>42)
[2020-05-10] MEDS: LACTOBACILLUS ACIDOPHILUS CAP (BACID) PO SCH ×3 (08:05→17:05)
[2020-05-10] MEDS: oxyCODONE 5MG TAB PO PRN (08:06)
[2020-05-10] MEDS: HumaLOG INSULIN (NovoLOG) PER UNIT SC SCH ×4 (08:53→20:34)
[2020-05-10] MEDS: VENLAFAXINE **XR** 37.5 MG CAPSULE PO SCH (08:56)
[2020-05-10] MEDS: HEPARIN SOD (PORCINE) 5000UNITS/ML 1ML VIAL/SYRINGE SC SCH ×2 (08:56→20:33)
[2020-05-10] MEDS: FEBUXOSTAT 40 MG TABLET (ULORIC) PO SCH (08:56)
[2020-05-10] MEDS: ASPIRIN ENTERIC 325 MG TAB PO SCH (08:57)
[2020-05-10] MEDS: CALCITRIOL 0.25 MCG CAP (S0169) PO SCH (08:57)
[2020-05-10] MEDS: PANTOPRAZOLE 40MG TAB (PROTONIX) PO SCH (08:57)
[2020-05-10] MEDS: OYSTER SHELL CALCIUM 500 MG TAB PO SCH (08:57)
[2020-05-10] MEDS: MULTIVITAMINS/MINERALS THERAP 1 TAB PO SCH (08:57)
[2020-05-10] MEDS: DOCUSATE SODIUM 100 MG CAP PO SCH ×2 (08:57→20:35)
[2020-05-10] MEDS: CARVedilol 12.5 MG TAB PO SCH ×2 (08:58→20:36)
[2020-05-10] MEDS: ACETAMINOPHEN 500 MG TAB PO SCH ×3 (08:58→20:35)
[2020-05-10] MEDS: amLODIPine 5 MG TAB PO SCH ×2 (08:59→20:35)
[2020-05-10] MEDS: **hydrALAZINE** 50 MG TAB PO SCH ×3 (08:59→20:36)
[2020-05-10] MEDS: REMEDY PHYTOPLEX Z-GUARD PASTE 113GM TUBE (FROM STOREROOM PRODUCT) TOP SCH ×3 (08:59→20:37)
--- NOTE | 2020-05-10 08:59 | REPVR ---
PROCEDURE INFORMATION: Exam: XR Left Shoulder Exam date and time: 05/10/2020 8:41 AM Age: 69 years old Clinical indication: Pain; Shoulder; Left; Additional info: Swelling, increased pain left shoulder. / out of brace TECHNIQUE: Imaging protocol: XR Left shoulder. Views: 2 or more views. COMPARISON: No relevant prior studies available. FINDINGS: Bones/joints: Probably acute angulated proximal left humeral shaft fracture. Status post open reduction internal fixation of healing left humeral neck fracture. Soft tissues: Normal. IMPRESSION: Probably acute angulated proximal left humeral shaft fracture. Status post open reduction internal fixation of healing left humeral neck fracture. Electronically signed by: Mike Peña On 05/10/2020 08:59:25 AM
--- NOTE | 2020-05-10 11:28 | IPNPDOC ---
Text Note Date of Service The patient was seen on 05/10/20. NOTE SUBJECTIVE: Patient was seen and examined today at bedside. He has an ice pack on his shoulder due to some soreness. Otherwise he is feeling well, no new issues. Plan is for discharge home on 05/12. OBJECTIVE: PHYSICAL EXAMINATION: VITAL SIGNS: Please see below. GENERAL: Alert, sitting up comfortably in bed, in no acute distress HEENT: NC, AT, moist mucous membranes, right IJ hemodialysis catheter present. CARDIOVASCULAR: RRR, normal S1 and S2 RESPIRATORY: CTAB, no wheezing, rhonchi, or rales ABDOMINAL: Soft, nontender, nondistended EXTREMITIES: Trace bilateral lower extremity edema. Hard brace over the left shoulder due to recent humerus fracture. ASSESSMENT/PLAN: 69 year old male with ESRD who was admitted with a left shoulder fracture after a mechanical fall 1. ESRD on hemodialysis. Cr and electrolytes have been stable. Last HD session was 05/09 with 2000mL removed. His Cr is 2.65 today and has trended down from 4.6 when dialysis was started. We will hold on HD tomorrow and check 24 hour creatinine clearance. This will help determine if he needs to continue with dialysis moving forward. 2. Hypertension. Blood pressure has remained elevated despite pain control. Primary team has increased Coreg from 12.5mg BID to 25mg BID. Continue current dose of Amlodipine 5 mg BID and Hydralazine 50 mg TID. 3. Anemia and end-stage renal disease. Continue on Aranesp and Venofer with dialysis. Hemoglobin level has been stable. 4. Chronic gout secondary to chronic kidney disease. Continue Uloric 80 mg daily. 5. Secondary hyperparathyroidism. Continue Calcitriol to 0.25 mcg on Friday, Friday, Friday. Thank you for the consultation on this patient, we will continue to follow along. VS,Fishbone, I+O VS, Fishbone, I+O Laboratory Tests 05/10/20 06:47 Vital Signs Date Time Temp Pulse Resp B/P (MAP) Pulse Ox O2 Delivery O2 Flow Rate FiO2 05/10/20 08:58 68 150/78 05/10/20 08:36 18 Room Air 05/10/20 06:00 97.1 98 I&O- Last 24 Hours up to 6 AM 05/10/20 06:00 Intake Total 1440 ml Output Total 2000 ml Balance -560 ml GME ATTESTATION GME ATTESTATION My faculty preceptor for this patient encounter was physically present during the encounter and was fully available. All aspects of the patient interview, examination, medical decision making process, and medical care plan development were reviewed and approved by the faculty preceptor. The faculty preceptor is aware and concurs with the plan as stated in the body of this note and will attest to such by his/her cosignature. ATTENDING NOTE ANGELLA on CKD4 HTN Solitary functioning kidney with h/o RCC with mets Hold HD tomorrow. collect 24 hr urine for Cr clearance tonight. OFELIA REEVES D.O. May 10, 2020 11:28 JUANA CORTEZ MD May 10, 2020 21:54
--- NOTE | 2020-05-10 11:51 | IPNPDOC ---
PM&R Progress Note DATE OF SERVICE: May 09, 2020 Ethnology Professor Progress Note Subjective; Patient seen in dialysis stating his right hand felt numb and that the Moran brace strap was tight under in his right armpit. The strap was loosened and he had some relief. REVIEW OF SYSTEMS: The following is a completed review of systems and has been reviewed. Review of systems otherwise unremarkable. PAIN: Patient self reports left arm pain (improving) EYES: No recent vision changes EARS, NOSE, & THROAT: No throat pain, or dysphagia, or rhinorrhea CARDIOVASCULAR: Denies chest pain or palpitations PULMONARY: Denies shortness of breath GASTROINTESTINAL: Denies constipation/diarrhea GENITOURINARY: denies dysuria MUSCULOSKELETAL: left arm pain NEUROLOGICAL:denies paresthesias or tremor HEMATOLOGICAL: + ecchymosis SKIN: denies rash PSYCHIATRIC: Unremarkable All other review of systems found to be negative. PHYSICAL EXAMINATION: VITAL SIGNS: Please see below. GENERAL: Pleasant and cooperative. No acute distress. HEENT: PERRL. Extraocular movements intact. Clear conjunctiva CARDIOVASCULAR: Regular rate and rhythm. No murmurs, rubs, or gallops LUNGS: Clear to auscultation bilaterally. No wheezes. No rhonchi ABDOMEN: Soft, nontender, nondistended. Positive bowel sounds. Normal active bowel sounds NEUROLOGICAL: Alert and oriented times three. Cranial nerves II through XII grossly intact. Sensation grossly intact EXTREMITIES: 5\5 strength RUE, buckle strap drum operator and wrist extension 5/5 left arm (limited due to fracture) 5\5 strength right lower extremity. 5/5 strength in left lower extremity. SKIN: intact, areas of bruising under left shoulder brace without any open areas -Left hand and forearm with no edema GOALS:Mod-I with quad cane household distances, dressing, bathing, toileting, functional transfers and bed mobility ASSESSMENT:69-year-old M with past medical history of ckd who presents status post recently initiated HD for ESRD and left humeral fracture PLAN: 1. Rehab- PT/OT advance gait and ADLs, c/u NWB to LUE, brace to be worn at all times except for skin checks, walking with quad cane 2. Ortho- s/p left proximal humeral fracture with left arm swelling, recent US negative for DVT-f/u ortho as outpatient-swelling resolved - Moran brace adjusted, call put through to detective and intelligence analyst today to readjust brace, patient and nursing staff encouraged to loosen strap when in bed so as not to compress the radial/axillary nerve 4. CArdiac- chronic CHF, c/u daily weights, fluid restriction- fluid management to be followed by renal -cardioprotection c/u ASA -HLD- c/u statin -HTN- elevated BPs, will increase CoReg to 25 mg BID, c/u hydralazine and amlodipine c/u to adjust prn -medicine consulted to assist in overall management 5. Renal- ESRD on HD with chronic anemia, per renal management -secondary hyperparathyroidism c/u calcitriol 6. GI ppx- protonix 7. DVT ppx- heparin 8. Endo- hx of DM c/u ISS- hyperglycemia improving c/u levemir 9. PAin- tylneol and oxycodone, on Effexor 10. Dispo- 05-12-20 to home, progressing towards goals Allergies Coded Allergies: Sulfa (Sulfonamide Antibiotics) (Verified Allergy, Unknown, 04/17/20) allopurinol (Verified Allergy, Unknown, 04/17/20) clindamycin (Verified Allergy, Unknown, 04/17/20) prochlorperazine (Verified Allergy, Unknown, 04/17/20) sulfamethoxazole (Verified Allergy, Unknown, 04/17/20) trimethoprim (Verified Allergy, Unknown, 04/17/20) Vital Signs Vital Signs Date Time Temp Pulse Resp B/P (MAP) Pulse Ox O2 Delivery O2 Flow Rate FiO2 05/10/20 08:58 68 150/78 05/10/20 08:36 18 Room Air 05/10/20 06:00 97.1 98 Laboratory Data CBC/BMP Laboratory Tests 05/10/20 06:47 Labs 24H Laboratory Tests 2 05/09/20 17:15: Bedside Glucose (Misc Panel) 145H 05/09/20 21:03: Bedside Glucose (Misc Panel) 232H 05/10/20 05:59: Bedside Glucose (Misc Panel) 171H 05/10/20 06:47: Immature Granulocyte % (Auto) 0.5, Neutrophils (%) (Auto) 73.3H, Lymphocytes (%) (Auto) 12.0L, Monocytes (%) (Auto) 8.1H, Eosinophils (%) (Auto) 5.5H, Basophils (%) (Auto) 0.6, Neutrophils # (Auto) 4.7, Lymphocytes # (Auto) 0.8L, Monocytes # (Auto) 0.5, Eosinophils # (Auto) 0.4, Basophils # (Auto) 0.0, Nucleated Red Blo od Cells % (auto) 0.0, Anion Gap 4L, Glomerular Filtration Rate 25.5L, Calcium Level 8.2L 05/10/20 11:32: Bedside Glucose (Misc Panel) 167H Current Medications Current Medications Current Medications Medications (Trade) Dose Ordered Sig/Raghu Route PRN Reason Start Time Stop Time Status Last Admin Dose Admin Acetaminophen (Tylenol Tab) 1,000 mg TID PO 04/27/20 21:00 05/10/20 08:58 Amlodipine Besylate (Norvasc) 5 mg BID PO 04/27/20 21:00 05/10/20 08:59 Aspirin (Ecotrin) 325 mg DAILY PO 04/28/20 09:00 05/10/20 08:57 Calcitriol (Rocaltrol) 0.5 mcg MoWeFr@0900 PO 04/28/20 09:00 05/10/20 08:57 Calcium Carbonate (Oscal) 500 mg DAILY PO 04/28/20 09:00 05/10/20 08:57 Carvedilol (COReg) 12.5 mg BID PO 04/27/20 21:00 05/05/20 10:50 DC 05/05/20 09:13 Carvedilol (COReg) 25 mg BID PO 05/05/20 21:00 05/10/20 08:58 Darbepoetin Giovani (Aranesp (Dialysis Use)) 100 mcg HD IV 04/28/20 11:30 05/04/20 11:10 DC Darbepoetin Giovani (Aranesp (Dialysis Use)) 200 mcg HD IV 05/04/20 11:15 05/04/20 13:42 DC Darbepoetin Giovani (Aranesp (Dialysis Use)) 200 mcg HD IV 05/04/20 13:45 Dextrose (Dextrose 50%) 25 ml ASDIRECTED PRN IV SEE LABEL COMMENTS 04/27/20 16:15 Docusate Sodium (Colace) 100 mg BID PO 04/27/20 21:00 05/10/20 08:57 Febuxostat (Uloric) 80 mg DAILY PO 04/28/20 09:00 05/10/20 08:56 Ferrous Sulfate (Ferrous Sulfate) 325 mg QHS PO 04/27/20 21:00 05/07/20 20:34 DC 05/07/20 20:25 Glucagon (Glucagon) 1 mg ASDIRECTED PRN SC SEE LABEL COMMENTS 04/27/20 16:15 Glucose (Glucose) 16 GM ASDIRECTED PRN PO SEE LABEL COMMENTS 04/27/20 16:15 Heparin Sodium (Porcine) (Heparin) 5,000 units Q12H SC 04/27/20 21:00 05/10/20 08:56 Home Med (Med Rec Complete!) ASDIRECTED XX 04/27/20 19:15 04/27/20 19:05 DC Hydralazine HCl (Apresoline) 50 mg TID PO 04/27/20 21:00 05/10/20 08:59 Insulin Detemir (Levemir Insulin) 5 units QHS SC 04/29/20 21:00 05/03/20 10:38 DC 05/02/20 20:52 Insulin Detemir (Levemir Insulin) 10 units QHS SC 05/03/20 21:00 05/09/20 21:07 Insulin Human Lispro (HumaLOG INSULIN) SEE PROTOCOL TABLE AC SC 04/28/20 07:30 05/10/20 08:53 Insulin Human Lispro (HumaLOG INSULIN) SEE PROTOCOL TABLE QHS SC 04/27/20 21:00 05/07/20 20:27 Iron (Venofer) 100 mg HD IV 04/28/20 11:30 Lactobacillus Acidophilus (Bacid) 1 ea WM PO 04/28/20 09:00 05/10/20 08:05 Latanoprost (Xalatan 0.005% Op Soln) 1 drop QHS OU 04/27/20 21:00 05/09/20 21:08 Levothyroxine Sodium (Synthroid) 50 mcg DAILY@06 PO 04/28/20 06:00 05/10/20 05:54 Multivitamins (Theragram-M) 1 tab DAILY PO 04/28/20 09:00 05/10/20 08:57 Ondansetron HCl (Zofran Odt) 4 mg Q4HP PRN PO NAUSEA OR VOMITING 04/27/20 16:15 Oxycodone HCl (Roxicodone, Oxyir) 5 mg Q4HP PRN PO PAIN 04/27/20 16:15 05/10/20 08:06 Pantoprazole Sodium (Protonix) 40 mg DAILY PO 04/28/20 09:00 05/10/20 08:57 Senna (Senokot) 1 tab QHS PO 04/27/20 21:00 05/09/20 21:06 Simvastatin (Zocor) 20 mg QHS PO 04/27/20 21:00 05/09/20 21:06 Simvastatin (Zocor) 40 mg QHS PO 04/27/20 21:00 04/27/20 19:28 DC Venlafaxine HCl (Effexor Xr) 37.5 mg DAILY PO 04/28/20 09:00 05/10/20 08:56 DOMINIC VANESSA MD May 10, 2020 11:51
--- NOTE | 2020-05-10 11:52 | IPNPDOC ---
PM&R Progress Note DATE OF SERVICE: May 10, 2020 Rcis Progress Note Subjective; Patient seen in his room after ice applied to his left shoulder and Moran brace removal, he states the swelling and pain had subsided. He states the num bness in his right arm is better as well. REVIEW OF SYSTEMS: The following is a completed review of systems and has been reviewed. Review of systems otherwise unremarkable. PAIN: Patient self reports left arm pain (improving) EYES: No recent vision changes EARS, NOSE, & THROAT: No throat pain, or dysphagia, or rhinorrhea CARDIOVASCULAR: Denies chest pain or palpitations PULMONARY: Denies shortness of breath GASTROINTESTINAL: Denies constipation/diarrhea GENITOURINARY: denies dysuria MUSCULOSKELETAL: left arm pain NEUROLOGICAL:denies paresthesias or tremor HEMATOLOGICAL: + ecchymosis SKIN: denies rash PSYCHIATRIC: Unremarkable All other review of systems found to be negative. PHYSICAL EXAMINATION: VITAL SIGNS: Please see below. GENERAL: Pleasant and cooperative. No acute distress. HEENT: PERRL. Extraocular movements intact. Clear conjunctiva CARDIOVASCULAR: Regular rate and rhythm. No murmurs, rubs, or gallops LUNGS: Clear to auscultation bilaterally. No wheezes. No rhonchi ABDOMEN: Soft, nontender, nondistended. Positive bowel sounds. Normal active bowel sounds NEUROLOGICAL: Alert and oriented times three. Cranial nerves II through XII grossly intact. Sensation grossly intact EXTREMITIES: 5\5 strength RUE, qa specialist and wrist extension 5/5 left arm (limited due to fracture) 5\5 strength right lower extremity. 5/5 strength in left lower extremity. left medial axillary mild swelling, non-tender, left humeral head anteriorly subluxed (able to be reduced easily), no warmth/erythema SKIN: intact, areas of bruising under left shoulder brace without any open areas -Left hand and forearm with no edema GOALS:Mod-I with quad cane household distances, dressing, bathing, toileting, functional transfers and bed mobility ASSESSMENT:69-year-old M with past medical history of ckd who presents status post recently initiated HD for ESRD and left humeral fracture PLAN: 1. Rehab- PT/OT advance gait and ADLs, c/u NWB to LUE, brace to be worn at all times except for skin checks, walking with quad cane 2. Ortho- s/p left proximal humeral fracture with left arm swelling, recent US negative for DVT-f/u ortho as outpatient-swelling resolved - Moran brace adjusted, call put through to machine set up technician today to readjust brace, patient and nursing staff encouraged to loosen strap when in bed so as not to compress the radial/axillary nerve - worsening shoulder pain this am- improving now s/p icing, repeat left shoulder Xray showing no new fracture, awaiting ortho recs, suspect subacromial bursitis, c/u ice and will add lidoderm patch 4. CArdiac- chronic CHF, c/u daily weights, fluid restriction- fluid management to be followed by renal -cardioprotection c/u ASA -HLD- c/u statin -HTN- elevated BPs, will increase Co-Reg to 25 mg BID, c/u hydralazine and amlodipine c/u to adjust prn -medicine consulted to assist in overall management 5. Renal- ESRD on HD with chronic anemia, per renal management -secondary hyperparathyroidism c/u calcitriol 6. GI ppx- protonix 7. DVT ppx- heparin 8. Endo- hx of DM c/u ISS- hyperglycemia improving c/u Levemir 9. PAin- tylneol and oxycodone, on Effexor -lidoderm patch to left shoulder 10. Dispo- 05-12-20 to home, progressing towards goals Allergies Coded Allergies: Sulfa (Sulfonamide Antibiotics) (Verified Allergy, Unknown, 04/17/20) allopurinol (Verified Allergy, Unknown, 04/17/20) clindamycin (Verified Allergy, Unknown, 04/17/20) prochlorperazine (Verified Allergy, Unknown, 04/17/20) sulfamethoxazole (Verified Allergy, Unknown, 04/17/20) trimethoprim (Verified Allergy, Unknown, 04/17/20) Vital Signs Vital Signs Date Time Temp Pulse Resp B/P (MAP) Pulse Ox O2 Delivery O2 Flow Rate FiO2 05/10/20 08:58 68 150/78 05/10/20 08:36 18 Room Air 05/10/20 06:00 97.1 98 Laboratory Data CBC/BMP Laboratory Tests 05/10/20 06:47 Labs 24H Laboratory Tests 2 05/09/20 17:15: Bedside Glucose (Misc Panel) 145H 05/09/20 21:03: Bedside Glucose (Misc Panel) 232H 05/10/20 05:59: Bedside Glucose (Misc Panel) 171H 05/10/20 06:47: Immature Granulocyte % (Auto) 0.5, Neutrophils (%) (Auto) 73.3H, Lymphocytes (%) (Auto) 12.0L, Monocytes (%) (Auto) 8.1H, Eosinophils (%) (Auto) 5.5H, Basophils (%) (Auto) 0.6, Neutrophils # (Auto) 4.7, Lymphocytes # (Auto) 0.8L, Monocytes # (Auto) 0.5, Eosinophils # (Auto) 0.4, Basophils # (Auto) 0.0, Nucleated Red Blood Cells % (auto) 0.0, Anion Gap 4L, Glomerular Filtration Rate 25.5L, Calcium Level 8.2L 05/10/20 11:32: Bedside Glucose (Misc Panel) 167H Current Medications Current Medications Current Medications Medications (Trade) Dose Ordered Sig/Raghu Route PRN Reason Start Time Stop Time Status Last Admin Dose Admin Acetaminophen (Tylenol Tab) 1,000 mg TID PO 04/27/20 21:00 05/10/20 08:58 Amlodipine Besylate (Norvasc) 5 mg BID PO 04/27/20 21:00 05/10/20 08:59 Aspirin (Ecotrin) 325 mg DAILY PO 04/28/20 09:00 05/10/20 08:57 Calcitriol (Rocaltrol) 0.5 mcg MoWeFr@0900 PO 04/28/20 09:00 05/10/20 08:57 Calcium Carbonate (Oscal) 500 mg DAILY PO 04/28/20 09:00 05/10/20 08:57 Carvedilol (COReg) 12.5 mg BID PO 04/27/20 21:00 05/05/20 10:50 DC 05/05/20 09:13 Carvedilol (COReg) 25 mg BID PO 05/05/20 21:00 05/10/20 08:58 Darbepoetin Giovani (Aranesp (Dialysis Use)) 100 mcg HD IV 04/28/20 11:30 05/04/20 11:10 DC Darbepoetin Giovani (Aranesp (Dialysis Use)) 200 mcg HD IV 05/04/20 11:15 05/04/20 13:42 DC Darbepoetin Giovani (Aranesp (Dialysis Use)) 200 mcg HD IV 05/04/20 13:45 Dextrose (Dextrose 50%) 25 ml ASDIRECTED PRN IV SEE LABEL COMMENTS 04/27/20 16:15 Docusate Sodium (Colace) 100 mg BID PO 04/27/20 21:00 05/10/20 08:57 Febuxostat (Uloric) 80 mg DAILY PO 04/28/20 09:00 05/10/20 08:56 Ferrous Sulfate (Ferrous Sulfate) 325 mg QHS PO 04/27/20 21:00 05/07/20 20:34 DC 05/07/20 20:25 Glucagon (Glucagon) 1 mg ASDIRECTED PRN SC SEE LABEL COMMENTS 04/27/20 16:15 Glucose (Glucose) 16 GM ASDIRECTED PRN PO SEE LABEL COMMENTS 04/27/20 16:15 Heparin Sodium (Porcine) (Heparin) 5,000 units Q12H SC 04/27/20 21:00 05/10/20 08:56 Home Med (Med Rec Complete!) ASDIRECTED XX 04/27/20 19:15 04/27/20 19:05 DC Hydralazine HCl (Apresoline) 50 mg TID PO 04/27/20 21:00 05/10/20 08:59 Insulin Detemir (Levemir Insulin) 5 units QHS SC 04/29/20 21:00 05/03/20 10:38 DC 05/02/20 20:52 Insulin Detemir (Levemir Insulin) 10 units QHS SC 05/03/20 21:00 05/09/20 21:07 Insulin Human Lispro (HumaLOG INSULIN) SEE PROTOCOL TABLE AC SC 04/28/20 07:30 05/10/20 08:53 Insulin Human Lispro (HumaLOG INSULIN) SEE PROTOCOL TABLE QHS SC 04/27/20 21:00 05/07/20 20:27 Iron (Venofer) 100 mg HD IV 04/28/20 11:30 Lactobacillus Acidophilus (Bacid) 1 ea WM PO 04/28/20 09:00 05/10/20 08:05 Latanoprost (Xalatan 0.005% Op Soln) 1 drop QHS OU 04/27/20 21:00 05/09/20 21:08 Levothyroxine Sodium (Synthroid) 50 mcg DAILY@06 PO 04/28/20 06:00 05/10/20 05:54 Multivitamins (Theragram-M) 1 tab DAILY PO 04/28/20 09:00 05/10/20 08:57 Ondansetron HCl (Zofran Odt) 4 mg Q4HP PRN PO NAUSEA OR VOMITING 04/27/20 16:15 Oxycodone HCl (Roxicodone, Oxyir) 5 mg Q4HP PRN PO PAIN 04/27/20 16:15 05/10/20 08:06 Pantoprazole Sodium (Protonix) 40 mg DAILY PO 04/28/20 09:00 05/10/20 08:57 Senna (Senokot) 1 tab QHS PO 04/27/20 21:00 05/09/20 21:06 Simvastatin (Zocor) 20 mg QHS PO 04/27/20 21:00 05/09/20 21:06 Simvastatin (Zocor) 40 mg QHS PO 04/27/20 21:00 04/27/20 19:28 DC Venlafaxine HCl (Effexor Xr) 37.5 mg DAILY PO 04/28/20 09:00 05/10/20 08:56 ODMINIC VANESSA MD May 10, 2020 11:52
[2020-05-10] MEDS: LIDOCAINE 5% (LIDODERM) PATCH TD SCH (13:29)
[2020-05-10 14:00] VITALS: BP 160/74
[2020-05-10 20:00] VITALS: BP 137/70
[2020-05-10] MEDS: LEVEMIR (INSULIN DETEMIR) 1 UNITS/0.01ML SC SCH (20:34)
[2020-05-10] MEDS: SIMVASTATIN 20 MG TAB PO SCH (20:35)
[2020-05-10] MEDS: SENNA 8.6 MG TAB (SENOKOT) PO SCH (20:35)
[2020-05-10] MEDS: LATANOPROST 0.005% OPHTH SOLN 2.5 ML OU SCH (20:36)
[2020-05-10] MEDS: **NOTE PATIENT COMMENT** MISC XX SCH (20:37)
[2020-05-11] MEDS: LEVOTHYROXINE 50MCG TABLET (0.05MG) PO SCH (05:46)
[2020-05-11 06:55] VITALS: BP 158/80
[2020-05-11] MEDS: HumaLOG INSULIN (NovoLOG) PER UNIT SC SCH ×4 (08:36→20:36)
[2020-05-11] MEDS: ASPIRIN ENTERIC 325 MG TAB PO SCH (08:36)
[2020-05-11] MEDS: MULTIVITAMINS/MINERALS THERAP 1 TAB PO SCH (08:37)
[2020-05-11] MEDS: PANTOPRAZOLE 40MG TAB (PROTONIX) PO SCH (08:37)
[2020-05-11] MEDS: VENLAFAXINE **XR** 37.5 MG CAPSULE PO SCH (08:37)
[2020-05-11] MEDS: HEPARIN SOD (PORCINE) 5000UNITS/ML 1ML VIAL/SYRINGE SC SCH ×2 (08:37→20:36)
[2020-05-11] MEDS: ACETAMINOPHEN 500 MG TAB PO SCH ×3 (08:37→20:34)
[2020-05-11] MEDS: DOCUSATE SODIUM 100 MG CAP PO SCH ×2 (08:38→20:34)
[2020-05-11] MEDS: FEBUXOSTAT 40 MG TABLET (ULORIC) PO SCH (08:38)
[2020-05-11] MEDS: OYSTER SHELL CALCIUM 500 MG TAB PO SCH (08:38)
[2020-05-11] MEDS: CARVedilol 12.5 MG TAB PO SCH ×2 (08:38→20:35)
[2020-05-11] MEDS: **hydrALAZINE** 50 MG TAB PO SCH ×3 (08:38→20:35)
[2020-05-11] MEDS: amLODIPine 5 MG TAB PO SCH ×2 (08:39→20:35)
[2020-05-11] MEDS: LIDOCAINE 5% (LIDODERM) PATCH TD SCH (08:39)
[2020-05-11] MEDS: REMEDY PHYTOPLEX Z-GUARD PASTE 113GM TUBE (FROM STOREROOM PRODUCT) TOP SCH ×3 (08:39→20:37)
[2020-05-11] MEDS: LACTOBACILLUS ACIDOPHILUS CAP (BACID) PO SCH ×3 (08:39→17:06)
--- NOTE | 2020-05-11 11:07 | IPNPDOC ---
PM&R Progress Note DATE OF SERVICE: May 11, 2020 [employer] Progress Note Subjective; Patient seen in his room stating the brace feels better now that there was better padding under his right underarm and that he had no increased pain or swelling today in his left shoulder. REVIEW OF SYSTEMS: The following is a completed review of systems and has been reviewed. Review of systems otherwise unremarkable. PAIN: Patient self reports left arm pain (improving) EYES: No recent vision changes EARS, NOSE, & THROAT: No throat pain, or dysphagia, or rhinorrhea CARDIOVASCULAR: Denies chest pain or palpitations PULMONARY: Denies shortness of breath GASTROINTESTINAL: Denies constipation/diarrhea GENITOURINARY: denies dysuria MUSCULOSKELETAL: left arm pain (improving) NEUROLOGICAL:denies paresthesias or tremor HEMATOLOGICAL: + ecchymosis SKIN: denies rash PSYCHIATRIC: Unremarkable All other review of systems found to be negative. PHYSICAL EXAMINATION: VITAL SIGNS: Please see below. GENERAL: Pleasant and cooperative. No acute distress. HEENT: PERRL. Extraocular movements intact. Clear conjunctiva CARDIOVASCULAR: Regular rate and rhythm. No murmurs, rubs, or gallops LUNGS: Clear to auscultation bilaterally. No wheezes. No rhonchi ABDOMEN: Soft, nontender, nondistended. Positive bowel sounds. Normal active bowel sounds NEUROLOGICAL: Alert and oriented times three. Cranial nerves II through XII grossly intact. Sensation grossly intact EXTREMITIES: 5\5 strength RUE, marine geologist and wrist extension 5/5 left arm (limited due to fracture) 5\5 strength right lower extremity. 5/5 strength in left lower extremity. left medial axilla without swelling/non-tender, left humeral head anteriorly subluxed (able to be reduced easily), no warmth/erythema SKIN: intact, areas of bruising under left shoulder brace without any open areas -Left hand and forearm with no edema ASSESSMENT:69-year-old M with past medical history of ckd who presents status post recently initiated HD for ESRD and left humeral fracture PLAN: 1. Rehab- PT/OT advance gait and ADLs, c/u NWB to LUE, brace to be worn at all times except for skin checks, walking with quad cane 2. Ortho- s/p left proximal humeral fracture with left arm swelling, recent US negative for DVT-f/u ortho as outpatient-swelling resolved - left shoulder pain improved, repeat left shoulder Xray showing no new fracture, awaiting ortho input, suspect previous swelling due to subacromial bursitis which responded to icing and lidoderm patch with benign exam today, patient with self-reducible anterior subluxation of left humeral head likely chronic, sling and brace adjusted today for better positioning, finisher special stocks help appreciated 4. CArdiac- chronic CHF, c/u daily weights, fluid restriction- fluid management to be followed by renal -cardioprotection c/u ASA -HLD- c/u statin -HTN-c/u Co-Reg to 25 mg BID, c/u hydralazine and amlodipine c/u to adjust prn -medicine consulted to assist in overall management 5. Renal- ESRD on HD with chronic anemia, per renal management -secondary hyperparathyroidism c/u calcitriol 6. GI ppx- protonix 7. DVT ppx- heparin 8. Endo- hx of DM c/u ISS- hyperglycemia improving c/u Levemir 9. PAin- tylneol and oxycodone, on Effexor -lidoderm patch to left shoulder 10. Dispo- 05-12-20 to home, progressing towards goals Allergies Coded Allergies: Sulfa (Sulfonamide Antibiotics) (Verified Allergy, Unknown, 04/17/20) allopurinol (Verified Allergy, Unknown, 04/17/20) clindamycin (Verified Allergy, Unknown, 04/17/20) prochlorperazine (Verified Allergy, Unknown, 04/17/20) sulfamethoxazole (Verified Allergy, Unknown, 04/17/20) trimethoprim (Verified Allergy, Unknown, 04/17/20) Vital Signs Vital Signs Date Time Temp Pulse Resp B/P (MAP) Pulse Ox O2 Delivery O2 Flow Rate FiO2 05/11/20 08:39 82 158/80 05/11/20 06:55 97.2 18 96 Room Air Laboratory Data Labs 24H Laboratory Tests 2 05/10/20 11:32: Bedside Glucose (Misc Panel) 167H 05/10/20 16:11: Bedside Glucose (Misc Panel) 171H 05/10/20 19:49: Bedside Glucose (Misc Panel) 190H 05/11/20 06:06: Bedside Glucose (Misc Panel) 162H Current Medications Current Medications Current Medications Medications (Trade) Dose Ordered Sig/Raghu Route PRN Reason Start Time Stop Time Status Last Admin Dose Admin Acetaminophen (Tylenol Tab) 1,000 mg TID PO 04/27/20 21:00 05/11/20 08:37 Amlodipine Besylate (Norvasc) 5 mg BID PO 04/27/20 21:00 05/11/20 08:39 Aspirin (Ecotrin) 325 mg DAILY PO 04/28/20 09:00 05/11/20 08:36 Calcitriol (Rocaltrol) 0.5 mcg MoWeFr@0900 PO 04/28/20 09:00 05/10/20 08:57 Calcium Carbonate (Oscal) 500 mg DAILY PO 04/28/20 09:00 05/11/20 08:38 Carvedilol (COReg) 12.5 mg BID PO 04/27/20 21:00 05/05/20 10:50 DC 05/05/20 09:13 Carvedilol (COReg) 25 mg BID PO 05/05/20 21:00 05/11/20 08:38 Darbepoetin Giovani (Aranesp (Dialysis Use)) 100 mcg HD IV 04/28/20 11:30 05/04/20 11:10 DC Darbepoetin Giovani (Aranesp (Dialysis Use)) 200 mcg HD IV 05/04/20 11:15 05/04/20 13:42 DC Darbepoetin Giovani (Aranesp (Dialysis Use)) 200 mcg HD IV 05/04/20 13:45 Dextrose (Dextrose 50%) 25 ml ASDIRECTED PRN IV SEE LABEL COMMENTS 04/27/20 16:15 Docusate Sodium (Colace) 100 mg BID PO 04/27/20 21:00 05/11/20 08:38 Febuxostat (Uloric) 80 mg DAILY PO 04/28/20 09:00 05/11/20 08:38 Ferrous Sulfate (Ferrous Sulfate) 325 mg QHS PO 04/27/20 21:00 05/07/20 20:34 DC 05/07/20 20:25 Glucagon (Glucagon) 1 mg ASDIRECTED PRN SC SEE LABEL COMMENTS 04/27/20 16:15 Glucose (Glucose) 16 GM ASDIRECTED PRN PO SEE LABEL COMMENTS 04/27/20 16:15 Heparin Sodium (Porcine) (Heparin) 5,000 units Q12H SC 04/27/20 21:00 05/11/20 08:37 Home Med (Med Rec Complete!) ASDIRECTED XX 04/27/20 19:15 04/27/20 19:05 DC Hydralazine HCl (Apresoline) 50 mg TID PO 04/27/20 21:00 05/11/20 08:38 Insulin Detemir (Levemir Insulin) 5 units QHS SC 04/29/20 21:00 05/03/20 10:38 DC 05/02/20 20:52 Insulin Detemir (Levemir Insulin) 10 units QHS SC 05/03/20 21:00 05/10/20 20:34 Insulin Human Lispro (HumaLOG INSULIN) SEE PROTOCOL TABLE AC SC 04/28/20 07:30 05/11/20 08:36 Insulin Human Lispro (HumaLOG INSULIN) SEE PROTOCOL TABLE QHS SC 04/27/20 21:00 05/07/20 20:27 Iron (Venofer) 100 mg HD IV 04/28/20 11:30 Lactobacillus Acidophilus (Bacid) 1 ea WM PO 04/28/20 09:00 05/11/20 08:39 Latanoprost (Xalatan 0.005% Op Soln) 1 drop QHS OU 04/27/20 21:00 05/10/20 20:36 Levothyroxine Sodium (Synthroid) 50 mcg DAILY@06 PO 04/28/20 06:00 05/11/20 05:46 Lidocaine (Lidoderm Patch) 1 patch DAILY TD 05/10/20 13:15 05/11/20 08:39 Multivitamins (Theragram-M) 1 tab DAILY PO 04/28/20 09:00 05/11/20 08:37 Non-Formulary Medication ( See Comment Field Below ) REMOVE LIDODERM PATCH DAILY@21 XX 05/10/20 21:00 05/10/20 20:37 Ondansetron HCl (Zofran Odt) 4 mg Q4HP PRN PO NAUSEA OR VOMITING 04/27/20 16:15 Oxycodone HCl (Roxicodone, Oxyir) 5 mg Q4HP PRN PO PAIN 04/27/20 16:15 05/10/20 08:06 Pantoprazole Sodium (Protonix) 40 mg DAILY PO 04/28/20 09:00 05/11/20 08:37 Senna (Senokot) 1 tab QHS PO 04/27/20 21:00 05/10/20 20:35 Simvastatin (Zocor) 20 mg QHS PO 04/27/20 21:00 05/10/20 20:35 Simvastatin (Zocor) 40 mg QHS PO 04/27/20 21:00 04/27/20 19:28 DC Venlafaxine HCl (Effexor Xr) 37.5 mg DAILY PO 04/28/20 09:00 05/11/20 08:37 DOMINIC VANESSA MD May 11, 2020 11:07
[2020-05-11] MEDS ORDERED: PROT1TAB2 PO (11:28)
[2020-05-11] MEDS ORDERED: RISATAB3 PO (11:28)
[2020-05-11] MEDS ORDERED: AMLO1TAB24 PO (11:28)
[2020-05-11] MEDS ORDERED: CALC500T44 PO (11:28)
[2020-05-11] MEDS ORDERED: VENL37.52 PO (11:28)
[2020-05-11] MEDS ORDERED: HYDR-3911 PO (11:28)
[2020-05-11] MEDS ORDERED: INSULADS SC (11:28)
[2020-05-11] MEDS ORDERED: VITMTA PO (11:28)
[2020-05-11] MEDS ORDERED: ROCA0.5C PO (11:28)
[2020-05-11] MEDS ORDERED: MAGN1TAB26 PO (11:28)
[2020-05-11] MEDS ORDERED: BAYE325T12 PO (11:28)
[2020-05-11] MEDS ORDERED: FERR325T3 PO (11:28)
[2020-05-11] MEDS ORDERED: CARV25TA PO (11:28)
[2020-05-11] MEDS ORDERED: ULOR80TA PO (11:28)
[2020-05-11] MEDS ORDERED: LEVO50TA5 PO (11:28)
[2020-05-11] MEDS ORDERED: SIMV20TA22 PO (11:28)
[2020-05-11 14:00] VITALS: BP 143/67
[2020-05-11 18:29] LABS: CREATININE, SERUM 2.7 MG/DL (0.6-1.3)
[2020-05-11] MEDS: oxyCODONE 5MG TAB PO PRN (18:44)
[2020-05-11 19:21] LABS: CREATININE CLEARANCE, URINE 17.1 ML/MIN (85-125)
[2020-05-11 20:00] VITALS: BP 152/68
[2020-05-11] MEDS: SENNA 8.6 MG TAB (SENOKOT) PO SCH (20:34)
[2020-05-11] MEDS: SIMVASTATIN 20 MG TAB PO SCH (20:34)
[2020-05-11] MEDS: LEVEMIR (INSULIN DETEMIR) 1 UNITS/0.01ML SC SCH (20:36)
[2020-05-11] MEDS: LATANOPROST 0.005% OPHTH SOLN 2.5 ML OU SCH (20:36)
[2020-05-11] MEDS: **NOTE PATIENT COMMENT** MISC XX SCH (20:37)
[2020-05-12] MEDS: LEVOTHYROXINE 50MCG TABLET (0.05MG) PO SCH (05:40)
[2020-05-12 06:00] VITALS: BP 152/78
[2020-05-12] MEDS: HumaLOG INSULIN (NovoLOG) PER UNIT SC SCH ×2 (06:44→13:00)
[2020-05-12 06:59] LABS: BASO % 0.5 % (0.0-1.0); EOS # 0.3 10^3/uL (0.0-0.5); EOS % 5.4 % (0.0-3.0); HEMATOCRIT 30.3 % (42.0-52.0); HEMOGLOBIN 10.1 g/dl (13.5-17.5); LYMPH # 0.8 10^3/uL (1.5-5.0); LYMPH % 13.8 % (24.0-44.0); MEAN CORPUSCULAR HEMOGLOBIN 33.8 pg (27.0-33.0); MEAN CORPUSCULAR HGB CONC 33.3 g/dl (32.0-36.5); MEAN CORPUSCULAR VOLUME 101.3 fl (80.0-96.0); MONO # 0.4 10^3/uL (0.0-0.8); MONO % 7.2 % (0.0-5.0); NEUTROPHILS # 4.2 10^3/uL (1.5-8.5); NEUTROPHILS % 72.8 % (36.0-66.0); PLATELET COUNT, AUTOMATED 177 10^3/uL (150-450); RED BLOOD COUNT 2.99 10^6/uL (4.30-6.10); WHITE BLOOD COUNT 5.7 10^3/uL (4.0-10.0)
[2020-05-12 07:19] LABS: CREATININE FOR GFR 3.58 MG/DL (0.70-1.30); GLOMERULAR FILTRATION RATE 18.1 (>42); POTASSIUM SERUM 3.8 MEQ/L (3.5-5.1)
[2020-05-12] MEDS: LACTOBACILLUS ACIDOPHILUS CAP (BACID) PO SCH ×2 (08:34→13:01)
[2020-05-12] MEDS: CARVedilol 12.5 MG TAB PO SCH (08:35)
[2020-05-12] MEDS: amLODIPine 5 MG TAB PO SCH (08:35)
[2020-05-12] MEDS: CALCITRIOL 0.25 MCG CAP (S0169) PO SCH (08:35)
[2020-05-12] MEDS: MULTIVITAMINS/MINERALS THERAP 1 TAB PO SCH (08:35)
[2020-05-12] MEDS: VENLAFAXINE **XR** 37.5 MG CAPSULE PO SCH (08:35)
[2020-05-12] MEDS: ASPIRIN ENTERIC 325 MG TAB PO SCH (08:35)
[2020-05-12] MEDS: ACETAMINOPHEN 500 MG TAB PO SCH (08:35)
[2020-05-12] MEDS: DOCUSATE SODIUM 100 MG CAP PO SCH (08:35)
[2020-05-12 08:36] VITALS: BP 152/78
[2020-05-12] MEDS: FEBUXOSTAT 40 MG TABLET (ULORIC) PO SCH (08:36)
[2020-05-12] MEDS: HEPARIN SOD (PORCINE) 5000UNITS/ML 1ML VIAL/SYRINGE SC SCH (08:36)
[2020-05-12] MEDS: **hydrALAZINE** 50 MG TAB PO SCH (08:36)
[2020-05-12] MEDS: OYSTER SHELL CALCIUM 500 MG TAB PO SCH (08:36)
[2020-05-12] MEDS: LIDOCAINE 5% (LIDODERM) PATCH TD SCH (08:36)
[2020-05-12] MEDS: REMEDY PHYTOPLEX Z-GUARD PASTE 113GM TUBE (FROM STOREROOM PRODUCT) TOP SCH (08:37)
[2020-05-12] MEDS: PANTOPRAZOLE 40MG TAB (PROTONIX) PO SCH (08:37)
--- NOTE | 2020-05-12 10:55 | IPNPDOC ---
Text Note Date of Service The patient was seen on 05/12/20. NOTE SUBJECTIVE: Patient was seen and examined today during hemodialysis. He continues to have some soreness in the left arm, otherwise feeling well. He states he is going home today. OBJECTIVE: PHYSICAL EXAMINATION: VITAL SIGNS: Please see below. GENERAL: Alert, sitting up comfortably in bed, in no acute distress HEENT: NC, AT, moist mucous membranes, right IJ hemodialysis catheter present. CARDIOVASCULAR: RRR, normal S1 and S2 RESPIRATORY: CTAB, no wheezing, rhonchi, or rales ABDOMINAL: Soft, nontender, nondistended EXTREMITIES: Trace bilateral lower extremity edema. Hard brace over the left shoulder due to recent humerus fracture. ASSESSMENT/PLAN: 69 year old male with ESRD who was admitted with a left shoulder fracture after a mechanical fall 1. ESRD on hemodialysis. Cr and electrolytes have been stable. Prior to today, last HD session was 05/09 with 2000mL removed. Since then his Cr has trended up from 2.65 to 3.58 today. We held of on HD yesterday and collected 24hr urine for Cr clearance which was 17.1, output of 600mL. We have decided to resume HD and he was seen today during his HD session. He will continue outpatient HD as well and we will monitor his Cr. If he continues to do well and Cr trends down we may recheck 24 hr urine sample for Cr clearance again in the future. For now he will continue with regular HD sessions three times a week. 2. Hypertension. Continue current dose of Amlodipine 5 mg BID, Coreg 25mg BID, and Hydralazine 50 mg TID. 3. Anemia and end-stage renal disease. Continue on Aranesp and Venofer with dialysis. Hemoglobin level has been slowly improving, up to 10.1 today. 4. Chronic gout secondary to chronic kidney disease. Continue Uloric 80 mg daily. 5. Secondary hyperparathyroidism. Continue Calcitriol to 0.25 mcg on Friday, Friday, Friday. Thank you for the consultation on this patient, we will continue to follow along. VS,Fishbone, I+O VS, Fishbone, I+O Laboratory Tests 05/12/20 06:30 Vital Signs Date Time Temp Pulse Resp B/P (MAP) Pulse Ox O2 Delivery O2 Flow Rate FiO2 05/12/20 08:36 152/78 05/12/20 08:35 75 9/18/20 06:00 97.0 18 98 Room Air I&O- Last 24 Hours up to 6 AM 05/12/20 05:59 Intake Total 800 ml Output Total 200 ml Balance 600 ml GME ATTESTATION GME ATTESTATION My faculty preceptor for this patient encounter was physically present during the encounter and was fully available. All aspects of the patient interview, examination, medical decision making process, and medical care plan development were reviewed and approved by the faculty preceptor. The faculty preceptor is aware and concurs with the plan as stated in the body of this note and will attest to such by his/her cosignature. ATTENDING NOTE Pt was seen and examined during HD. ESRD HTN anemia in ESRd Lt shoulder and humeral shaft fracture. h/o RCC with mets and s/p nephrectomy. 24 hr urine cr Cl~17. Cr rising between treatments. Resumed HD today. cont TIW HD for now and monitor renal function at outpatient HD center. Fracture management as per Ortho. OFELIA REEVES D.O. May 12, 2020 10:55 JUANA CORTEZ MD May 12, 2020 11:44
[2020-05-12 13:52] VITALS: BP 160/72
--- NOTE | 2020-05-29 11:09 | PMRDS ---
DATE OF ADMISSION: 04/27/2020 DATE OF DISCHARGE: 05/12/2020 CHIEF COMPLAINT/DISCHARGE DIAGNOSIS: End-stage renal disease and left humeral fracture. HISTORY OF PRESENT ILLNESS: This is a 69-year-old male with a past medical history of CKD stage 4 with a history of renal carcinoma; status post left nephrectomy, BPH, chronic CHF, diabetes and gout, who fell at home on to his left side and presented to [facility] ED on 04/17/2020 with pain in his left upper extremity. Humerus x-ray revealed a left proximal humeral fracture and he was deemed to be not an appropriate surgical candidate when evaluated by orthopedics and placed in a sling with a Moran brace and made non-weightbearing. He was followed closely by nephrology, who initially did not recommend dialysis, but due to worsening kidney function, had a Permacath placed on 04/24/2020 and was started on hemodialysis. He had episodes of hyperkalemia and anemia, which was treated by renal and elevations in blood pressure, for which his blood pressure medications were adjusted. He was evaluated by therapy, found to have impairments in mobility and ADLs, and deemed medically appropriate for discharge to ARU on 04/27/2020. PAST MEDICAL HISTORY: As per HPI. HOSPITAL COURSE: Patient was admitted and enrolled in a comprehensive PT/OT program. He received 24-hour nursing supervision and weekly team meetings were held to discuss his progress. He is maintained on a fluid restriction and underwent dialysis without any complications. His left shoulder remained in the Moran brace and sling with multiple adjustments to both brace and sling for better fitting and for comfort. He had episodes of hyperglycemia, treated with insulin and his blood pressure medications were adjusted for elevations during his hospital course. He made functional gains in therapy, was able to ambulate with a quad cane and deemed medically and functionally stable to return home. DISCHARGE MEDICATIONS: As per instructions. FUNCTIONAL HISTORY: On discharge, patient was modified independent with a quad cane. Thank you for this referral. HANNAH
== END 2020-05-12 14:10 | disposition home health service (06) | DRG 559 ==
LOC: M PM&R 18:35
PROVIDERS: ADMIT Physical Medicine & Rehabilitation; ATTEND Physical Medicine & Rehabilitation
PROC: 5A1D70Z Performance of Urinary Filtration, Intermittent, Less than 6 Hours Per Day (ICD-10-PCS; principal; 2020-04-29)
DX: S42.292D Other displaced fracture of upper end of left humerus, subsequent encounter for fracture with routine healing (principal); N18.6 End stage renal disease; I13.2 Hypertensive heart and chronic kidney disease with heart failure and with stage 5 chronic kidney disease, or end stage renal disease; N25.81 Secondary hyperparathyroidism of renal origin; N40.0 Benign prostatic hyperplasia without lower urinary tract symptoms; E11.22 Type 2 diabetes mellitus with diabetic chronic kidney disease; I50.9 Heart failure, unspecified; E11.65 Type 2 diabetes mellitus with hyperglycemia; M10.30 Gout due to renal impairment, unspecified site; R26.89 Other abnormalities of gait and mobility; E87.5 Hyperkalemia; E78.5 Hyperlipidemia, unspecified; D63.1 Anemia in chronic kidney disease; Z79.82 Long term (current) use of aspirin; Z79.899 Other long term (current) drug therapy; Z99.2 Dependence on renal dialysis; Z79.4 Long term (current) use of insulin; Z74.09 Other reduced mobility; Z90.5 Acquired absence of kidney; Z88.2 Allergy status to sulfonamides; Z88.1 Allergy status to other antibiotic agents; Z88.8 Allergy status to other drugs, medicaments and biological substances; Z85.528 Personal history of other malignant neoplasm of kidney

== ENCOUNTER → 2020-06-26 | Outpatient (CLI) | payer MEDICARE ==
[~2020-06-26] MED LIST changes: +CARV25TA PO; +LIDOCAINE W/EPINEPHRINE 1% 20ML VIAL As Ordered ONE; +MIDAZOLAM INJ 2MG/2ML VIAL (J2250 PER 1MG) As Ordered ONE; +RISATAB3 PO; +SIMV20TA22 PO; +ceFAZolin 2 GM/D5W 50 ML IV BAG (J0690 PER 500MG) As Ordered ONE; +fentaNYL 100 MCG/2 ML INJECTION (J3010) As Ordered ONE
--- NOTE | 2020-06-26 12:53 | ROOPDOC ---
[facility] Report Of Operation Report of Operation DATE OF PROCEDURE: 06/26/20 PREPROCEDURE DIAGNOSES: End-stage renal disease with hole in right IJ PermCath catheter POSTPROCEDURE DIAGNOSES: Same. PROCEDURE: 1. Removal right IJ PermCath 2. Placement of a new right IJ PermCath, 23 cm, tunneled through a new tunnel SURGEON: Hailey Wright MD ANESTHESIA: Local anesthesia 19 mL lidocaine. Moderate intravenous conscious sedation was supervised by Dr. Wright. The patient was independently monitored by registered nurse and signed the Department of radiology using automated blood pressure, EKG, and pulse oximetry. The detailed sedation record is permanently stored in the hospital information system. The following is a brief sedation record: Start time 12:13, stop time 12:28, Versed 1 mg IV, fentanyl 150 g IV, Ancef 2 g IV. INDICATION FOR PROCEDURE: This is a very pleasant 69-year-old patient with renal failure who had a right IJ PermCath placed by another provider on a recent hospitalization. Subsequently, the dialysis nurses noted there with a hole in the catheter. They have consulted as urgently for replacement. Risks benefits and alternatives to removal of the right IJ PermCath and placement of a new right IJ PermCath were explained to the patient needs agreeable to proceed. Informed consent was obtained. INTERPRETATION: The right IJ PermCath is in good position with no kinks in the catheter. There is no pneumothorax. The tip is freely mobile and the SVC right atrial junction. It is okay to use the catheter for dialysis. REPORT OF OPERATION: The patient was brought to the angiographic suite in stable condition. His right neck and chest were prepped and draped in a sterile fashion, including the existing PermCath. A timeout was performed. Sedation and antibiotics were administered without complication. The red port at this catheter was accessed and flushed with saline. A touey jacques was placed to prevent bleeding while an O35 floppy Glidewire was advanced through the red port of the catheter into the central system. The wire was then advanced from the SVC due to IVC under fluoroscopic guidance. Local anesthesia was administered rest skin and subcutaneous tissue at the exit site of the catheter, where the cough was within the subcutaneous tissue, and at the jugular vein. Additional local anesthesia was administered over the neck and chest lateral to the existing catheter for new tunnel. Small incision was made at the jugular access site. Blunt dissection was used to identify the catheter. We then loosen the cuff from the subcutaneous tissue. The catheter was gently removed over the wire while holding pressure at the jugular access site. The catheter was inspected and noted to be completely intact and no portion left behind. We then carefully backed the wire out through the incision and a peel-away sheath was placed over the wire under fluoroscopic guidance. We then tunneled a new 23 cm PermCath from the right chest to the jugular access site. We then removed the wire and inner cannula for the sheath, and the tips of the catheter were advanced through the sheath into the central system in the peel-away sheath was removed. Both ports faraz back and flushed easily. They were heparin locked with appropriate caps placed. The jugular access site was closed with deep and superficial interrupted Monocryl sutures. Dermabond was placed at the skin. The exit site for the new catheter in the new tunnel on the right chest was closed with a Prolene suture. Catheter was secured to the chest wall with 2 additional Prolene sutures. The exit site for the previous catheter was left open and a 2 x 2 and Steri-Strip replaced. We then placed sterile dressings around the new catheter. The patient was allowed to awaken from his sedation and taken to recovery in stable condition. He will be monitored for 30 minutes postprocedure and then discharged once he is hemodynamically stable, mental status is stable, and no bruising hematoma or bleeding is noted at the new or pre-existing catheter sites.. ESTIMATED BLOOD LOSS: Approximately 5 mL. COMPLICATIONS: None. PLAN: Okay to use right IJ PermCath for dialysis. Try to keep head elevated for most of the day to diminish venous pressure and diminish the risk of bleeding or bruising in the right neck and chest. If renal failure is permanent, we would be happy to see the patient back in clinic with the vein mapping to discuss options for AV access. We appreciate the opportunity to participate in the care of this patient. HAILEY WRIGHT MD Jun 26, 2020 12:53
[2020-06-26 13:15] VITALS: BP 167/87
== END ==
LOC: M IRPRO 11:42
PROVIDERS: ATTEND Surgery Vascular Surgery
DX: T82.41XA Breakdown (mechanical) of vascular dialysis catheter, initial encounter (principal); N18.6 End stage renal disease; X58.XXXA Exposure to other specified factors, initial encounter; H40.9 Unspecified glaucoma; I12.0 Hypertensive chronic kidney disease with stage 5 chronic kidney disease or end stage renal disease; E11.22 Type 2 diabetes mellitus with diabetic chronic kidney disease
CPT/HCPCS: 36558; 36589; 99152; C1750; C1769; J0690; J1644; J2250; J3010

== ENCOUNTER → 2020-07-22 | Outpatient (CLI) | payer MEDICARE ==
[~2020-07-22] MED LIST changes: +FEBU80TA; -LIDOCAINE W/EPINEPHRINE 1% 20ML VIAL As Ordered ONE; -MIDAZOLAM INJ 2MG/2ML VIAL (J2250 PER 1MG) As Ordered ONE; +ONDA8TAB8; -ceFAZolin 2 GM/D5W 50 ML IV BAG (J0690 PER 500MG) As Ordered ONE; -fentaNYL 100 MCG/2 ML INJECTION (J3010) As Ordered ONE
== END ==
LOC: M LABSMTC 09:36
PROVIDERS: ATTEND Anesthesiology
DX: Z01.812 Encounter for preprocedural laboratory examination (principal); Z20.828 Contact with and (suspected) exposure to other viral communicable diseases

== ENCOUNTER 2020-07-27 10:28 | Day surgery (SDC) | payer MEDICARE ==
[~2020-07-27] VITALS: Ht 182.9 cm; Wt 108.0 kg
[~2020-07-27 10:28] MED LIST changes: +LIDOCAINE 1% MDV 20ML VIAL SQ PRN; +LR 1,000 ML IV ONE; +MIDAZOLAM INJ 2MG/2ML VIAL (J2250 PER 1MG) IV PRN; +ceFAZolin SOD 2 GM in IV 1 EA IV ONE; +fentaNYL 100 MCG/2 ML INJECTION (J3010) IV PRN
[2020-07-27] MEDS ORDERED: LIDOCAINE 2% 100MG/5ML SDV (FOR ANES.) As Ordered ONE (11:24)
[2020-07-27] MEDS ORDERED: fentaNYL 100 MCG/2 ML INJECTION (J3010) As Ordered ONE ×2 (11:25→11:56)
[2020-07-27] MEDS ORDERED: MIDAZOLAM INJ 2MG/2ML VIAL (J2250 PER 1MG) As Ordered ONE ×2 (11:25→11:56)
[2020-07-27] MEDS ORDERED: propofoL 500 MG/50 ML VIAL As Ordered ONE (11:25)
[2020-07-27] MEDS ORDERED: ROPIvacaine 0.5% 30ML INJECTION (J2795 PER 1MG) As Ordered ONE (11:56)
[2020-07-27] MEDS ORDERED: EPINEPHrine INJ 1 MG/ML 1ML AMP As Ordered ONE (11:56)
[2020-07-27] MEDS ORDERED: LIDOCAINE 1% SDV 30ML VIAL As Ordered ONE (12:03)
[2020-07-27] MEDS ORDERED: HEPARIN SOD (PORCINE) 5000UNITS/ML 1ML VIAL/SYRINGE As Ordered ONE ×2 (12:03→12:04)
[2020-07-27] MEDS ORDERED: ROPIvacaine 0.5% 30ML INJECTION (J2795 PER 1MG) XX ONE (12:15)
[2020-07-27] MEDS ORDERED: EPINEPHrine INJ 1 MG/ML 1ML AMP XX ONE (12:15)
[2020-07-27] MEDS ORDERED: LIDOCAINE 1% MDV 20ML VIAL XX ONE (12:30)
[2020-07-27] MEDS ORDERED: D5W/0.2% SODIUM CHLORIDE 1,000 ML IV ONE (12:30)
[2020-07-27] MEDS ORDERED: OXYC1TAB23 PO (14:26)
--- NOTE | 2020-07-27 14:34 | ROOPDOC ---
[facility] Report Of Operation Report of Operation DATE OF PROCEDURE: 07/27/20 PREPROCEDURE DIAGNOSES: End-stage renal disease POSTPROCEDURE DIAGNOSES: Same PROCEDURE: Right brachial-basilic AV fistula creation SURGEON: Hailey Wright MD ANESTHESIA: Monitored anesthesia care, right scalene nerve block, local anesthesia INDICATION FOR PROCEDURE: This is a very pleasant 6-year-old gentleman with end- stage renal disease who requires access for dialysis. Risks benefits and al ternatives to a right brachial basilic AV fistula versus a right AV graft were explained to the patient needs agreeable to proceed. Informed consent was obtained. REPORT OF OPERATION: Patient was brought to the operating room in stable condition. A preoperative right scalene block was placed by our anesthesia colleagues. Monitored anesthesia care and antibiotics were administered without complication. His right upper extremity was prepped and draped in a sterile fashion. Timeout was performed. Local anesthesia was administered to the skin and subcutaneous tissue over the right brachial artery pulse 1 cm distal to the antecubital crease. An incision was made and carried down to the subcutaneous tissue with Bovie cautery. The basilic vein was identified and skeletonized swelling distally within the incision. Median cubital vein was fairly wide and we wanted to preserve flow from the forearm through the cephalic vein, so exhibit Prolene sutures were used in a mattress fashion to close vein along the cephalic and the basilic vein, and then the vein was divided at the median cubital vein. We then oversewed the edge with the Prolene sutures. Once hemostasis was achieved, we made sure we had not narrowed the basilic vein, and this allowed us a longer piece of vein for a tension-free anastomosis to the brachial artery. A silk suture was used distally to tie off the vein and it was ligated. We spatulated the end of the vein. We then utilized sequential dilators to dilate the vein, including a 3 mm, 3.5 mm, 4 mm dilator. We flushed the pain with heparinized saline. We then continued our dissection down to the brachial artery. Vesseloops replace proximally and distally and secured. An arteriotomy was made in the vein was anastomosed in an end-to-side fashion with running 6-0 Prolene suture. Before the final sutures are placed, we flushed the inflow and outflow of the artery and flushed with heparinized saline. The final sutures are placed and we restarted flow to the vein and the inflow artery, and then to the hand. There is a palpable pulse the radial artery and a strong signal at the palmar arch. There was a good thrill over the basilic vein and a good Doppler signal over the fistula. The hand was warm and well-perfused. We irrigated with saline and the deep tissues were approximated with 2-0 Vicryl suture. The fascia was closed with 2-0 Vicryl suture. The skin was closed with a running subcuticul ar Monocryl suture. Mastisol and Steri-Strips were placed the length of the incision. A 4 x 4 and Tegaderm were placed over this. The patient was allowed to awaken from anesthesia and was taken to recovery in stable condition after placing a sling to protect the right upper extremity after nerve block. The patient tolerated the sedation and the procedure well. ESTIMATED BLOOD LOSS: Approximately 5 mL. COMPLICATIONS: None. PLAN: Okay to remove Tegaderm and gauze tomorrow, but leave Steri-Strips intact 7 days. Okay to remove sling right upper extremity once nerve block wears off and normal motor and sensory function returned. No lifting greater than 5 pounds or strenuous exercise for 7 days. Okay to shower but no tub baths or swimming for 7 days until incision is completely healed. Okay to resume home diet and medications. We will see the patient back in a week to check his incision. We appreciate the opportunity to participate in care of this patient. HAILEY WRIGHT MD Jul 27, 2020 14:34
[2020-07-27 14:40] VITALS: BP 140/75
== END 2020-07-27 15:30 | disposition home or self-care (01) ==
LOC: M SDC 10:28
PROVIDERS: ATTEND Surgery Vascular Surgery
DX: N18.6 End stage renal disease (principal); I13.2 Hypertensive heart and chronic kidney disease with heart failure and with stage 5 chronic kidney disease, or end stage renal disease; E11.22 Type 2 diabetes mellitus with diabetic chronic kidney disease; E03.9 Hypothyroidism, unspecified; K44.9 Diaphragmatic hernia without obstruction or gangrene; I50.9 Heart failure, unspecified; K74.60 Unspecified cirrhosis of liver; K21.9 Gastro-esophageal reflux disease without esophagitis; I69.351 Hemiplegia and hemiparesis following cerebral infarction affecting right dominant side; G47.30 Sleep apnea, unspecified; N40.0 Benign prostatic hyperplasia without lower urinary tract symptoms; Z79.4 Long term (current) use of insulin; Z79.82 Long term (current) use of aspirin; Z79.899 Other long term (current) drug therapy; Z85.118 Personal history of other malignant neoplasm of bronchus and lung; Z85.528 Personal history of other malignant neoplasm of kidney; Z86.2 Personal history of diseases of the blood and blood-forming organs and certain disorders involving the immune mechanism; Z88.1 Allergy status to other antibiotic agents; Z88.2 Allergy status to sulfonamides; Z88.8 Allergy status to other drugs, medicaments and biological substances; Z90.5 Acquired absence of kidney; Z92.21 Personal history of antineoplastic chemotherapy; Z92.3 Personal history of irradiation; Z96.1 Presence of intraocular lens; Z98.41 Cataract extraction status, right eye; Z98.42 Cataract extraction status, left eye; Z99.2 Dependence on renal dialysis
CPT/HCPCS: 36415; 36821; 64415; 84132; J0690; J1644; J2250; J3010

== ENCOUNTER → 2020-12-23 | Outpatient (CLI) | payer MEDICARE ==
[~2020-12-23] MED LIST changes: -CALC500T44 PO; +INSULANT SC; -LIDOCAINE 1% MDV 20ML VIAL SQ PRN; -LR 1,000 ML IV ONE; -MIDAZOLAM INJ 2MG/2ML VIAL (J2250 PER 1MG) IV PRN; -ONDA8TAB8; +OXYC1TAB23 PO; +OYST500T25 PO; +OYST500T92 PO; -ceFAZolin SOD 2 GM in IV 1 EA IV ONE; -fentaNYL 100 MCG/2 ML INJECTION (J3010) IV PRN
== END ==
LOC: M LABSMTC 10:19
PROVIDERS: ATTEND Anesthesiology
DX: Z01.818 Encounter for other preprocedural examination (principal); Z11.52 Encounter for screening for COVID-19

== ENCOUNTER 2020-12-28 11:01 | Day surgery (SDC) | payer MEDICARE, BC ==
[~2020-12-28] VITALS: Ht 182.9 cm; Wt 107.4 kg
[~2020-12-28 11:01] MED LIST changes: +BUPIVACAINE/EPIN 0.5% 30 ML VIAL As Ordered ONE; +HEPARIN SOD (PORCINE) 5000UNITS/ML 1ML VIAL/SYRINGE As Ordered ONE; +LR 1,000 ML IV ONE; +ceFAZolin SOD 2 GM in IV 1 EA IV ONE
[2020-12-28] MEDS ORDERED: propofoL 200 MG/20 ML VIAL As Ordered ONE ×2 (12:53→14:22)
[2020-12-28] MEDS ORDERED: MIDAZOLAM INJ 2MG/2ML VIAL (J2250 PER 1MG) As Ordered ONE (12:53)
[2020-12-28] MEDS ORDERED: fentaNYL 100 MCG/2 ML INJECTION (J3010) As Ordered ONE (12:53)
[2020-12-28] MEDS ORDERED: LIDOCAINE 2% 100MG/5ML SDV (FOR ANES.) As Ordered ONE (12:53)
[2020-12-28] MEDS ORDERED: LIDOCAINE 1% SDV 30ML VIAL As Ordered ONE (13:09)
[2020-12-28] MEDS ORDERED: PHENYLephrine 500MCG 5ML (100MCG/ML) SYRINGE As Ordered ONE (13:16)
[2020-12-28] MEDS ORDERED: ONDANSETRON 4MG/2ML VIAL As Ordered ONE (14:22)
[2020-12-28] MEDS ORDERED: dexameTHASONE 4 MG/ML 1ML VIAL (J1100 PER 1MG) As Ordered ONE (14:22)
[2020-12-28] MEDS ORDERED: oxyCODONE 5MG TAB PO PRN (14:55)
[2020-12-28] MEDS ORDERED: NS 1,000 ML IV SCH (14:55)
[2020-12-28] MEDS ORDERED: ONDANSETRON 4MG/2ML VIAL IV PRN (14:55)
--- NOTE | 2020-12-28 14:55 | ROOPDOC ---
[facility] Report Of Operation Report of Operation DATE OF PROCEDURE: 12/28/20 PREPROCEDURE DIAGNOSES: End-stage renal disease with right brachiobasilic AV fistula too deep for cannulation POSTPROCEDURE DIAGNOSES: Same PROCEDURE: Transposition right basilic vein SURGEON: Hailey Wright MD ANESTHESIA: LMA and local anesthesia INDICATION FOR PROCEDURE: REPORT OF OPERATION: The patient was brought to the operating room in stable condition. Anesthesia and antibiotics were administered without complication. His right upper extremity was prepped and draped in a sterile fashion. A timeout was performed. Local anesthesia was administered to the skin and subcutaneous tissue over the basilic vein fistula. Skin knife was used to make an incision longitudinally over the vein. This was carried down to the subcutaneous tissues Bovie cautery. The vein was identified and skeletonized proximally and distally within the incision. The nerves were carefully preserved. The branches of the basilic vein were suture ligated and divided. Little clamps were placed proximal and distally. A beveled transection of the vein was performed and it was tunneled from proximal to distal with a tunneler. We then reanastomose the vein and an end to end fashion with 6-0 Prolene interrupted sutures. Care was taken not to narrow this anastomosis. We then confirmed good flow in the vein with a palpable thrill and good flow and Doppler. We irrigated with copious amounts of normal saline. Additional local anesthesia was administered. We then approximated the deep tissues with interrupted Vicryl sutures. This close the space. We then closed in 2 layers of 3-0 Vicryl suture. We approximated the deep dermal layer with interrupted 4-0 Vicryl suture. The skin was closed with running subcuticular Monocryl suture. The incision was clean and dry. Mastisol and Steri-Strips were placed the length of the wound. 4 x 4 and Tegaderms were placed as a final dressing. There was an excellent thrill in the fistula palpable at the skin. This was confirmed again with Doppler. The hand was warm and well-perfused. The patient was then awakened from anesthesia and taken to recovery in stable condition. ESTIMATED BLOOD LOSS: Approximately 10 mL. COMPLICATIONS: None. PLAN: Okay to resume home diet and medications. No lifting greater than 5 pounds or strenuous exercise right upper extremity for 1 week. Okay to remove Tegaderm over incision and gauze, but leaves Steri-Strips intact for 7 days to help incision to heal. Continue to use squeeze ball to help with maturation of fistula and dilation of vein. Follow-up in one week to check incision. We appreciate the opportunity to participate in the care of this patient. HAILEY WRIGHT MD December 28, 2020 14:55
[2020-12-28] MEDS ORDERED: OXYC1TAB23 PO (14:58)
[2020-12-28 16:15] VITALS: BP 131/70
--- NOTE | 2020-12-28 17:00 | ECGEPIP ---
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
== END 2020-12-28 16:15 | disposition home or self-care (01) ==
LOC: M SDC 11:01
PROVIDERS: ATTEND Surgery Vascular Surgery
DX: N18.6 End stage renal disease (principal); Z99.2 Dependence on renal dialysis; I12.0 Hypertensive chronic kidney disease with stage 5 chronic kidney disease or end stage renal disease; E78.00 Pure hypercholesterolemia, unspecified; E11.9 Type 2 diabetes mellitus without complications; M10.9 Gout, unspecified; E03.9 Hypothyroidism, unspecified; K44.9 Diaphragmatic hernia without obstruction or gangrene; K74.60 Unspecified cirrhosis of liver; K21.9 Gastro-esophageal reflux disease without esophagitis; I69.898 Other sequelae of other cerebrovascular disease; G47.30 Sleep apnea, unspecified; R06.02 Shortness of breath; Z85.118 Personal history of other malignant neoplasm of bronchus and lung; Z85.528 Personal history of other malignant neoplasm of kidney; Z90.5 Acquired absence of kidney; Z92.3 Personal history of irradiation; Z92.21 Personal history of antineoplastic chemotherapy; Z88.8 Allergy status to other drugs, medicaments and biological substances; Z88.1 Allergy status to other antibiotic agents; Z88.2 Allergy status to sulfonamides; Z79.82 Long term (current) use of aspirin; Z79.899 Other long term (current) drug therapy; Z79.4 Long term (current) use of insulin
CPT/HCPCS: 36415; 36820; 84132; 93005; J0690; J1100; J1644; J2250; J2370; J2405; J3010

== ENCOUNTER 2021-05-02 17:36 | Emergency (ER) | payer MEDICARE, BC ==
[~2021-05-02] VITALS: Ht 188 cm; Wt 106.5 kg
[~2021-05-02 17:36] MED LIST changes: -BUPIVACAINE/EPIN 0.5% 30 ML VIAL As Ordered ONE; +ERGO500029 PO; -HEPARIN SOD (PORCINE) 5000UNITS/ML 1ML VIAL/SYRINGE As Ordered ONE; -LR 1,000 ML IV ONE; -ceFAZolin SOD 2 GM in IV 1 EA IV ONE
--- NOTE | 2021-05-02 20:01 | REP ---
INDICATION: nausea, esrd. COMPARISON: Comparison chest x-ray April 17, 2020. TECHNIQUE: Portable upright AP chest radiograph. FINDINGS: EKG electrodes are seen. A right-sided central venous tunnel catheter is seen in the expected location of superior vena cava. Cardiomegaly is again observed. The thoracic aorta is tortuous. Patient is rotated somewhat to the right. There is blunting of the right lateral pleural angle and some right base platelike atelectatic changes are noted. These are similar to the prior study. There are stable nodular densities again noted projecting in the left perihilar region unchanged from prior studies including a chest CT from 2013. Pulmonary vasculature is not increased. IMPRESSION: Blunting of the right lateral pleural angle with right base platelike atelectasis. Stable nodular opacities in the left perihilar region. <Electronically signed by Idris Mercado > 05/02/211957
[2021-05-02 20:08] LABS: BASO % 0.4 % (0.0-1.0); EOS # 0.5 10^3/uL (0.0-0.5); EOS % 4.9 % (0.0-3.0); HEMATOCRIT 32.2 % (42.0-52.0); HEMOGLOBIN 10.9 g/dl (13.5-17.5); LYMPH # 1.2 10^3/uL (1.5-5.0); LYMPH % 12.4 % (24.0-44.0); MEAN CORPUSCULAR HEMOGLOBIN 32.9 pg (27.0-33.0); MEAN CORPUSCULAR HGB CONC 33.9 g/dl (32.0-36.5); MEAN CORPUSCULAR VOLUME 97.3 fl (80.0-96.0); MONO # 0.6 10^3/uL (0.0-0.8); MONO % 5.9 % (2.0-8.0); NEUTROPHILS # 7.2 10^3/uL (1.5-8.5); PLATELET COUNT, AUTOMATED 136 10^3/uL (150-450); RED BLOOD COUNT 3.31 10^6/uL (4.30-6.10); WHITE BLOOD COUNT 9.5 10^3/uL (4.0-10.0)
[2021-05-02 20:33] LABS: ERYTHROCYTE SEDIMENTATION RATE 60 mm/hr (0-20)
[2021-05-02 20:37] LABS: ALBUMIN 2.9 GM/DL (3.2-5.2); BILIRUBIN,DIRECT 0.1 MG/DL (0.0-0.2); BILIRUBIN,TOTAL 0.3 MG/DL (0.2-1.0); C REACTIVE PROTEIN QUANTITATIV 1.91 MG/DL (0.00-0.30); CALCIUM LEVEL 8.5 MG/DL (8.8-10.2); CK-MB VALUE MASS 2.4 NG/ML (<3.6); CREATININE FOR GFR 3.54 MG/DL (0.70-1.30); GLOMERULAR FILTRATION RATE 18.2 (>42); MB/CK RELATIVE INDEX 5.45 (< OR =4); POTASSIUM SERUM 4.3 MEQ/L (3.5-5.1); TOTAL PROTEIN 6.3 GM/DL (6.4-8.2); TROPONIN I 0.03 NG/ML (< 0.10)
[2021-05-02] MEDS ORDERED: CEPHALEXIN 500 MG CAP PO ONE (22:35)
[2021-05-02] MEDS ORDERED: CEPH500C PO (22:50)
[2021-05-02 23:00] VITALS: BP 132/70
--- NOTE | 2021-05-03 06:34 | ECGEPIP ---
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
== END 2021-05-02 23:35 | disposition home or self-care (01) ==
LOC: M ED 17:36
DX: T82.49XA Other complication of vascular dialysis catheter, initial encounter (principal); R11.0 Nausea; R21 Rash and other nonspecific skin eruption; Z99.2 Dependence on renal dialysis; I48.91 Unspecified atrial fibrillation; I13.2 Hypertensive heart and chronic kidney disease with heart failure and with stage 5 chronic kidney disease, or end stage renal disease; I50.9 Heart failure, unspecified; N18.6 End stage renal disease; E03.9 Hypothyroidism, unspecified; Z88.1 Allergy status to other antibiotic agents; Z88.2 Allergy status to sulfonamides; Z79.899 Other long term (current) drug therapy; Z88.8 Allergy status to other drugs, medicaments and biological substances

== ENCOUNTER 2021-06-14 12:41 | Inpatient (IN) | payer MEDICARE, BC ==
[~2021-06-14] VITALS: Ht 185.4 cm; Wt 109.0 kg
[~2021-06-14 12:41] MED LIST changes: +CEPH500C PO
[2021-06-14 16:06] VITALS: BP 133/81
[2021-06-14] MEDS ORDERED: GLUCOSE 4GM CHEW TABLET PO PRN (16:40)
[2021-06-14] MEDS ORDERED: DEXTROSE 50% 50 ML SYRINGE IV PRN (16:40)
[2021-06-14] MEDS ORDERED: GLUCAGON INJ 1MG VIAL SC PRN (16:40)
--- OUTSIDE RECORDS SUMMARY | 2021-06-14 16:55 | CCD ---
Author Author [facility] Organization [facility] Address Unknown Phone Unavailable Care Team Providers Care Pattern Generator Operator Name Role Phone Morris Cruz RPA-C Unavailable Unavailable Morris Cruz RPA-C Unavailable Unavailable Morris Cruz RPA-C Unavailable Unavailable Morris Cruz RPA-C Unavailable Unavailable Steckel, M Pastora RPA-C Unavailable Unavailable Steckel, M Pastora RPA-C Unavailable Unavailable Steckel, M Pastora RPA-C Unavailable Unavailable Steckel, M Pastora RPA-C Unavailable Unavailable Steckel, M Pastora RPA-C Unavailable Unavailable Steckel, M Pastora RPA-C Unavailable Unavailable Steckel, M Pastora RPA-C Unavailable Unavailable Steckel, M Pastora RPA-C Unavailable Unavailable Steckel, M Pastora RPA-C Unavailable Unavailable Steckel, M Pastora RPA-C Unavailable Unavailable Steckel, M Pastora RPA-C Unavailable Unavailable Steckel, M Pastora RPA-C Unavailable Unavailable Steckel, M Pastora RPA-C Unavailable Unavailable Steckel, M Pastora RPA-C Unavailable Unavailable Steckel, M Pastora RPA-C Unavailable Unavailable Steckel, M Pastora RPA-C Unavailable Unavailable Steckel, M Pastora RPA-C Unavailable Unavailable Steckel, M Pastora RPA-C Unavailable Unavailable Steckel, M Pastora RPA-C Unavailable Unavailable Steckel, M Pastora RPA-C Unavailable Unavailable Steckel, M Pastora RPA-C Unavailable Unavailable Cederstrand, Amina Mcnamara MD Unavailable Unavailable Cederstrand, Amina Mcnamara MD Unavailable Unavailable Cederstrand, Amina Mcnamara MD Unavailable Unavailable Cederstrand, Amina Mcnamara MD Unavailable Unavailable Eliuerstrand, Amina Mcnamara MD Unavailable Unavailable Cederstrand, Amina Mcnamara MD Unavailable Unavailable Cederstrand, Amina Mcnamara MD Unavailable Unavailable Cederstrand, Amina Mcnamara MD Unavailable Unavailable Cederstrand, Amina Mcnamara MD Unavailable Unavailable Cederstrand, Amina Mcnamara MD Unavailable Unavailable Cederstrand, Amina Mcnamara MD Unavailable Unavailable Cederstrand, Amina Mcnamara MD Unavailable Unavailable Cederstrand, Amina Mcnamara MD Unavailable Unavailable Cederstrand, Amina Mcnamara MD Unavailable Unavailable Cederstrand, Amina Mcnamara MD Unavailable Unavailable Cederstrand, Amina Mcnamara MD Unavailable Unavailable LUCINA YOO Unavailable Unavailable Eneida GUPTA DPMorris PC Unavailable Unavailable Eneida GUPTA DPM PC Unavailable Unavailable ALONSO, J JD DPM PC Unavailable Unavailable ALONSO, J JD DPM PC Unavailable Unavailable ALONSO, J JD DPM PC Unavailable Unavailable ALONSO, J JD DPM PC Unavailable Unavailable ALONSO, J JD DPM PC Unavailable Unavailable ALONSO, J JD DPM PC Unavailable Unavailable ALONSO, J JD DPM PC Unavailable Unavailable ALONSO, J JD DPM PC Unavailable Unavailable ALONSO, J JD DPM PC Unavailable Unavailable ALONSO, J JD DPM PC Unavailable Unavailable ALONSO, J JD DPM PC Unavailable Unavailable ALONSO, J JD DPM PC Unavailable Unavailable ALONSO, J JD DPM PC Unavailable Unavailable ALONSO, J JD DPM PC Unavailable Unavailable ALONSO, J JD DPM PC Unavailable Unavailable ALONSO, J JD DPM PC Unavailable Unavailable ALONSO, J JD DPM PC Unavailable Unavailable ALONSO, J JD DPM PC Unavailable Unavailable ALONSO, J JD DPM PC Unavailable Unavailable ALONSO, J JD DPM PC Unavailable Unavailable ALONSO, J JD DPM PC Unavailable Unavailable ALONSO, J JD DPM PC Unavailable Unavailable ALONSO, J JD DPM PC Unavailable Unavailable ALONSO, J JD DPM PC Unavailable Unavailable ALONSO, J JD DPM PC Unavailable Unavailable PADMA, MAQBOOL MIKE MD Unavailable Unavailable PADMA, MAQBOOL MIKE MD Unavailable Unavailable PADMA, MAQBOOL MIKE MD Unavailable Unavailable PADMA, MAQBOOL MIKE MD Unavailable Unavailable PADMA, MAQBOOL MIKE MD Unavailable Unavailable PADMA, MAQBOOL MIKE MD Unavailable Unavailable PADMA, MAQBOOL MIKE MD Unavailable Unavailable PADMA, MAQBOOL MIKE MD Unavailable Unavailable PADMA, MAQBOOL MIKE MD Unavailable Unavailable PADMA, MAQBOOL MIKE MD Unavailable Unavailable PADMA, MAQBOOL MIKE MD Unavailable Unavailable PADMA, MAQBOOL MIKE MD Unavailable Unavailable PADMA, MAQBOOL MIKE MD Unavailable Unavailable PADMA, MAQBOOL MIKE MD Unavailable Unavailable PADMA, MAQBOOL MIKE MD Unavailable Unavailable PADMA, MAQBOOL MIKE MD Unavailable Unavailable PADMA, MAQBOOL MIKE MD Unavailable Unavailable PADMA, MAQBOOL MIKE MD Unavailable Unavailable PADMA, MAQBOOL MIKE MD Unavailable Unavailable PADMA, MAQBOOL MIKE MD Unavailable Unavailable PADMA, MAQBOOL MIKE MD Unavailable Unavailable PADMA, MAQBOOL MIKE MD Unavailable Unavailable PADMA, MAQBOOL MIKE MD Unavailable Unavailable PADMA, MAQBOOL MIKE MD Unavailable Unavailable PADMA, MAQBOOL MIKE MD Unavailable Unavailable PADMA, MAQBOOL MIKE MD Unavailable Unavailable PADMA, MAQBOOL MIKE MD Unavailable Unavailable PADMA, MAQBOOL MIKE MD Unavailable Unavailable PADMA, MAQBOOL MIKE MD Unavailable Unavailable PADMA, MAQBOOL MIKE MD Unavailable Unavailable PADMA, MAQBOOL MIKE MD Unavailable Unavailable PADMA, MAQBOOL MIKE MD Unavailable Unavailable PADMA, MAQBOOL MIKE MD Unavailable Unavailable PADMA, MAQBOOL MIKE MD Unavailable Unavailable PADMA, MAQBOOL MIKE MD Unavailable Unavailable PADMA, MAQBOOL MIKE MD Unavailable Unavailable PADMA, MAQBOOL MIKE MD Unavailable Unavailable PADMA, MAQBOOL MIKE MD Unavailable Unavailable PADMA, MAQBOOL MIKE MD Unavailable Unavailable PADMA, MAQBOOL MIKE MD Unavailable Unavailable PADMA, MAQBOOL MIKE MD Unavailable Unavailable PADMA, MAQBOOL MIKE MD Unavailable Unavailable PADMA, MAQBOOL MIKE MD Unavailable Unavailable PADMA, MAQBOOL MIKE MD Unavailable Unavailable PADMA, MAQBOOL MIKE MD Unavailable Unavailable PADMA, MAQBOOL MIKE MD Unavailable Unavailable PADMA, MAQBOOL MIKE MD Unavailable Unavailable PADMA, MAQBOOL MIKE MD Unavailable Unavailable PADMA, MAQBOOL MIKE MD Unavailable Unavailable PADMA, MAQBOOL MIKE MD Unavailable Unavailable PADMA, MAQBOOL MIKE MD Unavailable Unavailable PADMA, MAQBOOL MIKE MD Unavailable Unavailable PADMA, MAQBOOL MIKE MD Unavailable Unavailable PADMA, MAQBOOL MIKE MD Unavailable Unavailable PADMA, MAQBOOL MIKE MD Unavailable Unavailable PADMA, MAQBOOL MIKE MD Unavailable Unavailable PADMA, MAQBOOL MIKE MD Unavailable Unavailable PADMA, MAQBOOL MIKE MD Unavailable Unavailable PADMA, MAQBOOL MIKE MD Unavailable Unavailable PADMA, MAQBOOL MIKE MD Unavailable Unavailable PADMA, MAQBOOL MIKE MD Unavailable Unavailable PADMA, MAQBOOL MIKE MD Unavailable Unavailable PADMA, MAQBOOL MIKE MD Unavailable Unavailable PADMA, MAQBOOL MIKE MD Unavailable Unavailable PADMA, MAQBOOL MIKE MD Unavailable Unavailable PADMA, MAQBOOL MIKE MD Unavailable Unavailable PADMA, MAQBOOL MIKE MD Unavailable Unavailable PADMA, MAQBOOL MIKE MD Unavailable Unavailable PADMA, MAQBOOL MIKE MD Unavailable Unavailable PADMA, MAQBOOL MIKE MD Unavailable Unavailable PADMA, MAQBOOL MIKE MD Unavailable Unavailable PADMA, MAQBOOL MIKE MD Unavailable Unavailable PADMA, MAQBOOL MIKE MD Unavailable Unavailable PADMA, MAQBOOL MIKE MD Unavailable Unavailable PADMA, MAQBOOL MIKE MD Unavailable Unavailable PADMA, MAQBOOL MIKE MD Unavailable Unavailable PADMA, MAQBOOL MIKE MD Unavailable Unavailable PADMA, MAQBOOL MIKE MD Unavailable Unavailable JLUIS WILKINSON MD Unavailable Unavailable JLUIS WILKINSON MD Unavailable Unavailable JLUIS WILKINSON MD Unavailable Unavailable JLUIS WILKINSON MD Unavailable Unavailable JLUIS WILKINSON MD Unavailable Unavailable JLUIS WILKINSON MD Unavailable Unavailable JLUIS WILKINSON MD Unavailable Unavailable JLUIS WILKINSON MD Unavailable Unavailable JLUIS WILKINSON MD Unavailable Unavailable JLUIS WILKINSON MD Unavailable Unavailable JLUIS WILKINSON MD Unavailable Unavailable JLUIS WILKINSON MD Unavailable Unavailable JLUIS WILKINSON MD Unavailable Unavailable JLUIS WILKINSON MD Unavailable Unavailable JLUIS WILKINSON MD Unavailable Unavailable JLUIS WILKINSON MD Unavailable Unavailable JLUIS WILKINSON MD Unavailable Unavailable JLUIS WILKINSON MD Unavailable Unavailable JLUIS WILKINSON MD Unavailable Unavailable JLUIS WILKINSON MD Unavailable Unavailable JLUIS WILKINSON MD Unavailable Unavailable JLUIS WILKINSON MD Unavailable Unavailable JLUIS WILKINSON MD Unavailable Unavailable JLUIS WILKINSON MD Unavailable Unavailable JLUIS WILKINSON MD Unavailable Unavailable JLUIS WILKINSON MD Unavailable Unavailable JLUIS WILKINSON MD Unavailable Unavailable JLUIS WILKINSON MD Unavailable Unavailable JLUIS WILKINSON MD Unavailable Unavailable WILKINSONJLUIS BEATTY MD Unavailable Unavailable WILKINSONJLUIS BEATTY MD Unavailable Unavailable ADAN LAM MD Unavailable Unavailable ADAN LAM MD Unavailable Unavailable Kym, G Ena Unavailable Unavailable Kym, G Ena Unavailable Unavailable Kym, G Ena Unavailable Unavailable Kym, G Ena Unavailable Unavailable Kym, G Ena Unavailable Unavailable Kym, G Ena Unavailable Unavailable Kym, G Ena Unavailable Unavailable Kym, G Ena Unavailable Unavailable Kym, G Ena Unavailable Unavailable Ykm, G Ena Unavailable Unavailable Kym, G Ena Unavailable Unavailable Kym, G Ena Unavailable Unavailable Kym, G Ena Unavailable Unavailable Kym, G Ena Unavailable Unavailable Kym, G Ena Unavailable Unavailable Kym, G Ena Unavailable Unavailable Kym, G Ena Unavailable Unavailable Kym, G Ena Unavailable Unavailable Kym, G Ena Unavailable Unavailable Kym, G Ena Unavailable Unavailable Kym, G Ena Unavailable Unavailable Eneida BARCENAS MD Unavailable Unavailable Eneida BRACENAS MD Unavailable Unavailable Eneida BARCENAS MD Unavailable Unavailable Eneida BARCENAS MD Unavailable Unavailable Eneida BARCENAS MD Unavailable Unavailable Eneida BARCENAS MD Unavailable Unavailable Eneida BARCENAS MD Unavailable Unavailable Eneida BARCENAS MD Unavailable Unavailable Eneida BARCENAS MD Unavailable Unavailable Eneida BARCENAS MD Unavailable Unavailable Eneida BARCENAS MD Unavailable Unavailable Eneida BARCENAS MD Unavailable Unavailable Eneida BARCENAS MD Unavailable Unavailable Eneida BARCENAS MD Unavailable Unavailable Eneida BARCENAS MD Unavailable Unavailable Enedia BARCENAS MD Unavailable Unavailable Eneida BARCENAS MD Unavailable Unavailable Eneida BARCENAS MD Unavailable Unavailable Eneida BARCENAS MD Unavailable Unavailable Eneida BARCENAS MD Unavailable Unavailable Eneida BARCENAS MD Unavailable Unavailable Eneida BARCENAS MD Unavailable Unavailable Eneida BARCENAS MD Unavailable Unavailable Eneida BARCENAS MD Unavailable Unavailable Eneida BARCENAS MD Unavailable Unavailable Eneida BARCENAS MD Unavailable Unavailable Eneida BARCENAS MD Unavailable Unavailable Eneida BARCENAS MD Unavailable Unavailable Eneida BARCENAS MD Unavailable Unavailable Eneida BARCENAS MD Unavailable Unavailable Eneida BARCENAS MD Unavailable Unavailable Eneida BARCENAS MD Unavailable Unavailable Eneida BARCENAS MD Unavailable Unavailable Eneida BARCENAS MD Unavailable Unavailable Eneida BARCENAS MD Unavailable Unavailable Eneida BARCENAS MD Unavailable Unavailable Eneida BARCENAS MD Unavailable Unavailable Eneida BARCENAS MD Unavailable Unavailable Eneida BARCENAS MD Unavailable Unavailable Eneida BARCENAS MD Unavailable Unavailable Eneida BARCENAS MD Unavailable Unavailable Eneida BARCENAS MD Unavailable Unavailable Eneida BARCENAS MD Unavailable Unavailable Eneida BARCENAS MD Unavailable Unavailable Eneida BARCENAS MD Unavailable Unavailable Eneida BARCENAS MD Unavailable Unavailable Eneida BARCENAS MD Unavailable Unavailable Eneida BARCENAS MD Unavailable Unavailable Eneida BARCENAS MD Unavailable Unavailable Eneida BARCENAS MD Unavailable Unavailable Eneida BARCENAS MD Unavailable Unavailable Eneida BARCENAS MD Unavailable Unavailable Eneida BARCENAS MD Unavailable Unavailable Eneida BARCENAS MD Unavailable Unavailable Eneida BARCENAS MD Unavailable Unavailable Eneida BARCENAS MD Unavailable Unavailable Eneida BARCENAS MD Unavailable Unavailable Eneida BARCENAS MD Unavailable Unavailable Eneida BARCENAS MD Unavailable Unavailable Eneida BARCENAS MD Unavailable Unavailable Eneida BARCENAS MD Unavailable Unavailable Eneida BARCENAS MD Unavailable Unavailable Eneida BARCENAS MD Unavailable Unavailable Eneida BARCENAS MD Unavailable Unavailable Eneida BARCENAS MD Unavailable Unavailable Eneida BARCENAS MD Unavailable Unavailable Eneida BARCENAS MD Unavailable Unavailable Eneida BARCENAS MD Unavailable Unavailable Eneida BARCENAS MD Unavailable Unavailable Eneida BARCENAS MD Unavailable Unavailable Eneida BARCENAS MD Unavailable Unavailable Eneida BARCENAS MD Unavailable Unavailable Eneida BARCENAS MD Unavailable Unavailable Eneida BARCENAS MD Unavailable Unavailable Eneida BARCENAS MD Unavailable Unavailable Eneida BARCENAS MD Unavailable Unavailable Eneida BARCENAS MD Unavailable Unavailable Eneida BARCENAS MD Unavailable Unavailable JONATHAN GUERRA MD Unavailable Unavailable JONATHAN GUERRA MD Unavailable Unavailable JONATHAN GUERRA MD Unavailable Unavailable JONATHAN GUERRA MD Unavailable Unavailable JONATHAN GUERRA MD Unavailable Unavailable JONATHAN GUERRA MD Unavailable Unavailable JONATHAN GUERRA MD Unavailable Unavailable PADMA, MAQBOOL MIKE MD Unavailable Unavailable PADMA, MAQBOOL MIKE MD Unavailable Unavailable PADMA, MAQBOOL MIKE MD Unavailable Unavailable PADMA, MAQBOOL MIKE MD Unavailable Unavailable PADMA, MAQBOOL MIKE MD Unavailable Unavailable PADMA, MAQBOOL MIKE MD Unavailable Unavailable PADMA, MAQBOOL MIKE MD Unavailable Unavailable PADMA, MAQBOOL MIKE MD Unavailable Unavailable PADMA, MAQBOOL MIKE MD Unavailable Unavailable PADMA, MAQBOOL MIKE MD Unavailable Unavailable PADMA, MAQBOOL MIKE MD Unavailable Unavailable PADMA, MAQBOOL MIKE MD Unavailable Unavailable PADMA, MAQBOOL MIKE MD Unavailable Unavailable PADMA, MAQBOOL MIKE MD Unavailable Unavailable PADMA, MAQBOOL MIKE MD Unavailable Unavailable PADMA, MAQBOOL MIKE MD Unavailable Unavailable PADMA, MAQBOOL MIKE MD Unavailable Unavailable PADMA, MAQBOOL MIKE MD Unavailable Unavailable PADMA, MAQBOOL MIKE MD Unavailable Unavailable PADMA, MAQBOOL MIKE MD Unavailable Unavailable PADMA, MAQBOOL MIKE MD Unavailable Unavailable PADMA, MAQBOOL MIKE MD Unavailable Unavailable PADMA, MAQBOOL MIKE MD Unavailable Unavailable PADMA, MAQBOOL MIKE MD Unavailable Unavailable PADMA, MAQBOOL MIKE MD Unavailable Unavailable PADMA, MAQBOOL MIKE MD Unavailable Unavailable PADMA, MAQBOOL MIKE MD Unavailable Unavailable PADMA, MAQBOOL MIKE MD Unavailable Unavailable PADMA, MAQBOOL MIKE MD Unavailable Unavailable PADMA, MAQBOOL MIKE MD Unavailable Unavailable PADMA, MAQBOOL MIKE MD Unavailable Unavailable PADMA, MAQBOOL MIKE MD Unavailable Unavailable PADMA, MAQBOOL MIKE MD Unavailable Unavailable PADMA, MAQBOOL MIKE MD Unavailable Unavailable PADMA, MAQBOOL MIKE MD Unavailable Unavailable PADMA, MAQBOOL MIKE MD Unavailable Unavailable PADMA, MAQBOOL MIKE MD Unavailable Unavailable PADMA, MAQBOOL MIKE MD Unavailable Unavailable PADMA, MAQBOOL MIKE MD Unavailable Unavailable PADMA, MAQBOOL MIKE MD Unavailable Unavailable PADMA, MAQBOOL MIKE MD Unavailable Unavailable PADMA, MAQBOOL MIKE MD Unavailable Unavailable PADMA, MAQBOOL MIKE MD Unavailable Unavailable PADMA, MAQBOOL MIKE MD Unavailable Unavailable PADMA, MAQBOOL MIKE MD Unavailable Unavailable PADMA, MAQBOOL MIKE MD Unavailable Unavailable PADMA, MAQBOOL MIKE MD Unavailable Unavailable PADMA, MAQBOOL MIKE MD Unavailable Unavailable PADMA, MAQBOOL MIKE MD Unavailable Unavailable PADMA, MAQBOOL MIKE MD Unavailable Unavailable PADMA, MAQBOOL MIKE MD Unavailable Unavailable PADMA, MAQBOOL MIKE MD Unavailable Unavailable PADMA, MAQBOOL MIKE MD Unavailable Unavailable PADMA, MAQBOOL MIKE MD Unavailable Unavailable PADMA, MAQBOOL MIKE MD Unavailable Unavailable PADMA, MAQBOOL MIKE MD Unavailable Unavailable PADMA, MAQBOOL MIKE MD Unavailable Unavailable PADMA, MAQBOOL MIKE MD Unavailable Unavailable PADMA, MAQBOOL MIKE MD Unavailable Unavailable PADMA, MAQBOOL MIKE MD Unavailable Unavailable PADMA, MAQBOOL MIKE MD Unavailable Unavailable PADMA, MAQBOOL MIKE MD Unavailable Unavailable PADMA, MAQBOOL MIKE MD Unavailable Unavailable PADMA, MAQBOOL MIKE MD Unavailable Unavailable PADMA, MAQBOOL MIKE MD Unavailable Unavailable PADMA, MAQBOOL MIKE MD Unavailable Unavailable PADMA, MAQBOOL MIKE MD Unavailable Unavailable PADMA, MAQBOOL MIKE MD Unavailable Unavailable PADMA, MAQBOOL MIKE MD Unavailable Unavailable PADMA, MAQBOOL MIKE MD Unavailable Unavailable PADMA, MAQBOOL MIKE MD Unavailable Unavailable TURRIN, SANTIAGO Unavailable Unavailable TURRIN, SANTIAGO Unavailable Unavailable TURRIN, SANTIAGO Unavailable Unavailable TURRIN, SANTIAGO Unavailable Unavailable Baptiste, L Darlene RPA Unavailable Unavailable Baptiste, L Darlene RPA Unavailable Unavailable Baptiste, L Darlene RPA Unavailable Unavailable Baptiste, L Darlene RPA Unavailable Unavailable Baptiste, L Darlene RPA Unavailable Unavailable Baptiste, L Darlene RPA Unavailable Unavailable Baptiste, L Darlene RPA Unavailable Unavailable Baptiste, L Darlene RPA Unavailable Unavailable Baptiste, L Darlene RPA Unavailable Unavailable Baptiste, L Darlene RPA Unavailable Unavailable Baptiste, L Darlene RPA Unavailable Unavailable Baptiste, L Darlene RPA Unavailable Unavailable Baptiste, L Darlene RPA Unavailable Unavailable Baptiste, L Darlene RPA Unavailable Unavailable Baptiste, L Darlene RPA Unavailable Unavailable Baptiste, L Darlene RPA Unavailable Unavailable Baptiste, L Darlene RPA Unavailable Unavailable Baptiste, L Darlene RPA Unavailable Unavailable Baptiste, L Darlene RPA Unavailable Unavailable Baptiste, L Darlene RPA Unavailable Unavailable Baptiste, L Darlene RPA Unavailable Unavailable Baptiste, L Darlene RPA Unavailable Unavailable Baptiste, L Darlene RPA Unavailable Unavailable Baptiste, L Darlene RPA Unavailable Unavailable Baptiste, L Darlene RPA Unavailable Unavailable Baptiste, L Darlene RPA Unavailable Unavailable Baptiste, L Darlene RPA Unavailable Unavailable Baptiste, L Darlene RPA Unavailable Unavailable Baptiste, L Darlene RPA Unavailable Unavailable Baptiste, L Darlene RPA Unavailable Unavailable Baptiste, L Darlene RPA Unavailable Unavailable Baptiste, L Darlene RPA Unavailable Unavailable Ernestine Hess MD . Unavailable Ernestine Hess MD . Unavailable Ernestine Hess MD . Unavailable Ernestine Hess MD . Unavailable Ernestine Hess MD . Unavailable Ernestine Hess MD . Unavailable Ernestine Hess MD . Unavailable Ernestine Hess MD . Unavailable Ernestine Hess MD . Unavailable Ernestine Hess MD . Unavailable Ernestine Hess MD . Unavailable Ernestine Hess MD . Unavailable Ernestine Hess MD . Unavailable Ernestine Hess MD . Unavailable Ernestine Hess MD . Unavailable Deshawn MD, Ernestine . Unavailable Deshawn MD, Ernestine . Unavailable Deshawn MD, Ernestine . Unavailable Deshawn MD, Ernestine . Unavailable Deshawn MD, Ernestine . Unavailable Deshawn MD, Ernestine . Unavailable Deshawn MD, Ernestine . Unavailable Deshawn MD, Ernestine . Unavailable Deshawn MD, Ernestine . Unavailable Deshawn MD, Ernestine . Unavailable Deshawn MD, Ernestine . Unavailable Deshawn MD, Ernestine . Unavailable Deshawn MD, Ernestine . Unavailable Deshawn MD, Ernestine . Unavailable Deshawn MD, Ernestine . Unavailable Deshawn MD, Ernestine . Unavailable Deshawn MD, Ernestine . Unavailable Deshawn MD, Ernestine . Unavailable Deshawn , Ernestine . Unavailable PADMAMURPHYQBOARABELLA MOSES MD Unavailable Unavailable PADMA MAQBOOL MIKE MARTÍNEZ Unavailable Unavailable PADMA MAQBOOL MIKE MARTÍNEZ Unavailable Unavailable PADMA MAQBOOL MIKE MARTÍNEZ Unavailable Unavailable PADMA MAQBOOL MIKE MARTÍNEZ Unavailable Unavailable PADMA MAQBOOL MIKE MARTÍNEZ Unavailable Unavailable PADMA MAQBOOL MIKE MARTÍNEZ Unavailable Unavailable PADMAMURPHYQBOOL MIKE MARTÍNEZ Unavailable Unavailable PDAMA MAQBOOL MIKE MARTÍNEZ Unavailable Unavailable PADMA MAQBOOL MIKE MARTÍNEZ Unavailable Unavailable PADMA MAQBOOL MIKE MARTÍNEZ Unavailable Unavailable PADMA MAQBOOL MIKE MD Unavailable Unavailable PADMA, MAQBOOL MIKE MD Unavailable Unavailable PADMA, MAQBOOL MIKE MD Unavailable Unavailable PADMA, MAQBOOL MIKE MD Unavailable Unavailable PADMA, MAQBOOL MIKE MD Unavailable Unavailable PADMA, MAQBOOL MIKE MD Unavailable Unavailable PADMA, MAQBOOL MIKE MD Unavailable Unavailable PADMA, MAQBOOL MIKE MD Unavailable Unavailable PADMA, MAQBOOL MIKE MD Unavailable Unavailable PADMA, MAQBOOL MIKE MD Unavailable Unavailable PADMA, MAQBOOL MIKE MD Unavailable Unavailable PADMA, MAQBOOL MIKE MD Unavailable Unavailable PADMA, MAQBOOL MIKE MD Unavailable Unavailable PADMA, MAQBOOL MIKE MD Unavailable Unavailable PADMA, MAQBOOL MIKE MD Unavailable Unavailable PADMA, MAQBOOL MIKE MD Unavailable Unavailable PADMA, MAQBOOL MIKE MD Unavailable Unavailable PADMA, MAQBOOL MIKE MD Unavailable Unavailable PADMA, MAQBOOL MIKE MD Unavailable Unavailable PADMA, MAQBOOL MIKE MD Unavailable Unavailable PADMA, MAQBOOL MIKE MD Unavailable Unavailable PADMA, MAQBOOL MIKE MD Unavailable Unavailable PADMA, MAQBOOL MIKE MD Unavailable Unavailable PADMA, MAQBOOL MIKE MD Unavailable Unavailable PADMA, MAQBOOL MIKE MD Unavailable Unavailable PADMA, MAQBOOL MIKE MD Unavailable Unavailable PADMA, MAQBOOL MIKE MD Unavailable Unavailable PADMA, MAQBOOL MIKE MD Unavailable Unavailable PADMA, MAQBOOL MIKE MD Unavailable Unavailable PADMA, MAQBOOL MIKE MD Unavailable Unavailable PADMA, MAQBOOL MIKE MD Unavailable Unavailable PADMA, MAQBOOL MIKE MD Unavailable Unavailable PADMA, MAQBOOL MIKE MD Unavailable Unavailable PADMA, MAQBOOL MIKE MD Unavailable Unavailable PADMA, MAQBOOL MIKE MD Unavailable Unavailable PADMA, MAQBOOL MIKE MD Unavailable Unavailable PADMA, MAQBOOL MIKE MD Unavailable Unavailable PADMA, MAQBOOL MIKE MD Unavailable Unavailable PADMA, MAQBOOL MIKE MD Unavailable Unavailable PADMA, MAQBOOL MIKE MD Unavailable Unavailable PADMA, MAQBOOL MIKE MD Unavailable Unavailable PADMA, MAQBOOL MIKE MD Unavailable Unavailable PADMA, MAQBOOL MIKE MD Unavailable Unavailable PADMA, MAQBOOL MIKE MD Unavailable Unavailable PADMA, MAQBOOL MIKE MD Unavailable Unavailable PADMA, MAQBOOL MIKE MD Unavailable Unavailable PDAMA, MAQBOOL MIKE MD Unavailable Unavailable PADMA, MAQBOOL MIKE MD Unavailable Unavailable PADMA, MAQBOOL MIKE MD Unavailable Unavailable PADMA, MAQBOOL MIKE MD Unavailable Unavailable PADMA, MAQBOOL MIKE MD Unavailable Unavailable PADMA, MAQBOOL MIKE MD Unavailable Unavailable PADMA, MAQBOOL MIKE MD Unavailable Unavailable PADMA, MAQBOOL MIKE MD Unavailable Unavailable PADMA, MAQBOOL MIKE MD Unavailable Unavailable PADMA, MAQBOOL MIKE MD Unavailable Unavailable PADMA, MAQBOOL MKIE MD Unavailable Unavailable PADMA, MAQBOOL MIKE MD Unavailable Unavailable PADMA, MAQBOOL MIKE MD Unavailable Unavailable PADMA, MAQBOOL MIKE MD Unavailable Unavailable PADMA, MAQBOOL MIKE MD Unavailable Unavailable PADMA, MAQBOOL MIKE MD Unavailable Unavailable PADMA, MAQBOOL MIKE MD Unavailable Unavailable PADMA, MAQBOOL MIKE MD Unavailable Unavailable PADMA, MAQBOOL MIKE MD Unavailable Unavailable PADMA, MAQBOOL MIKE MD Unavailable Unavailable PADMA, MAQBOOL MIKE MD Unavailable Unavailable Re-disclosure Warning The records that you are about to access may contain information from federally-assisted alcohol or drug abuse programs. If such information is present, then the following federally mandated warning applies: This information has been disclosed to you from records protected by federal confidentiality rules (42 CFR part 2). The federal rules prohibit you from making any further disclosure of this information unless further disclosure is expressly permitted by the written consent of the person to whom it pertains or as otherwise permitted by 42 CFR part 2. A general authorization for the release of medical or other information is NOT sufficient for this purpose. The Federal rules restrict any use of the information to criminally investigate or prosecute any alcohol or drug abuse patient.The records that you are about to access may contain highly sensitive health information, the redisclosure of which is protected by Article 27-F of the [facility] Public Health law. If you continue you may have access to information: Regarding HIV / AIDS; Provided by facilities licensed or operated by the [facility] Office of Mental Health; or Provided by the [facility] Office for People With Developmental Disabilities. If such information is present, then the following [facility] mandated warning applies: This information has been disclosed to you from confidential records which are protected by state law. State law prohibits you from making any further disclosure of this information without the specific written consent of the person to whom it pertains, or as otherwise permitted by law. Any unauthorized further disclosure in violation of state law may result in a fine or residential sentence or both. A general authorization for the release of medical or other information is NOT sufficient authorization for further disc losure. Allergies and Adverse Reactions Type Description Substance Reaction Status Data Source(s ) Propensity to adverse reactions TRULICITY TRULICITY VOMITING, NAUSE A [facility] Propensity to adverse reactions COMPAZINE PO TAB 10 MG COMPAZINE PO TAB 10 MG [facility] Propensity to adverse reactions BACTRIM DS BACTRIM DS [facility] Drug allergy ALLOPURINOL ALLOPURINOL [facility] Drug allergy CLINDAMYCIN CLINDAMYCIN [facility] Propensity to adverse reactions SULFA (sulfonamide) SULFA (sulfonamid e) [facility] Family History Family Member Name Family Member Gender Family Member Status Date o f Status Description Data Source(s) Unknown Unknown Problem [facility] ([facility]) Encounters Encounter Providers Location Date Indications Data Source(s ) Outpatient Attender: JD GUPTA DPM PCConsultant: MIKE GUERRA MD 06/14/2021 09:27:00 AM EDT - 06/14/2021 09:27:00 AM EDT [facility] Outpatient Attender: ELISSA Elias/Fadi/Dawson/Georgiana randall 06/07/2021 10:00:00 AM EDT [facility] ([facility] Outpatient Attender: JD GUPTA DPM PCConsultant: MIKE GUERRA MD 03/23/2021 10:28:30 AM EDT - 03/26/2021 10:01:00 AM EDT [facility] Patient discharged. Outpatient Attender: JD GUPTA DPM PCConsultant: MIKE GUERRA MD 03/22/2021 10:24:00 AM EDT - 03/22/2021 10:24:00 AM EDT [facility] Outpatient Attender: JD GUPTA DPM PCConsultant: MIKE GUERRA MD 03/22/2021 08:45:00 AM EDT - 03/22/2021 09:30:00 AM EDT [facility] Patient discharged. Outpatient Attender: MIKE GUERRA MD [facility] 03/01 10:15:00 AM EDT [facility] (Mike Guerra MD) Outpatient Attender: JD GUPTA DPM PCConsultant: MIKE GUERRA MD 02/23/2021 10:21:00 AM EDT - 02/23/2021 10:21:00 AM T [facility] Office Visit Attender: Naima Elias/Fadi/Dawson/ [place] 02/22/2021 09:30:00 AM EDT [facility] ([facility] Outpatient Attender: JD GUPTA DPM PCConsultant: MIKE GUERRA MD 02/14/2021 09:47:00 AM EDT - 02/14/2021 09:47:00 AM T [facility] Outpatient Attender: JD GUPTA DPM PCConsultant: MIKE GUERRA MD 02/07/2021 09:08:00 AM EDT - 02/07/2021 09:08:00 AM T [facility] Outpatient Attender: JD GUPTA DPM PCConsultant: MIKE GUERRA MD 02/01/2021 03:54:00 PM EDT - 02/01/2021 03:54:[address] [facility] Office Visit Attender: Naima Elias/Fadi/Dawson/ [place] 01/29/2021 10:15:00 AM EDT [facility] ([facility]) Outpatient Attender: JD GUPTA DPM PCConsultant: MIKE GUERRA MD 01/23/2021 03:42:00 PM EDT - 01/23/2021 03:42:[address] [facility] Outpatient Attender: JD GUPTA DPM PCConsultant: MIKE GUERRA MD 01/16/2021 10:57:00 AM EDT - 01/16/2021 10:57:[address] [facility] Office Visit Attender: Darlene Elias/Fadi/Dawson/R eindl 01/11/2021 10:30:00 AM EDT [facility] ([facility] Outpatient Attender: Naima Elias/Fadi/Dawson/ Reindl 12/07/2020 01:15:00 PM EDT [facility] ([facility] Outpatient Attender: JD GUPTA DPM PCConsultant: MIKE GUERRA MD 11/23/2020 11:01:00 AM EDT - 11/23/2020 11:01:[address] [facility] Outpatient Attender: JD ROMEROM PCConsultant: MIKE GUERRA MD 10/19/2020 11:28:00 AM [facility] 10/19/2020 11:28:00 AM [facility] Outpatient Attender: JD GUPTA DPM PCConsultant: MIKE GUERRA MD 10/12/2020 08:36:00 AM [facility] - 10/12/2020 08:36:00 AM [facility] Outpatient Attender: MARQUIS BARCENAS MD [id number] 10/10/2020 12:00:00 AM [facility] Outpatient Referrer: MARQUIS BARCENAS MD 10/10/2020 12:0 0:00 AM EST Displaced transverse fracture of shaft of humerus, left arm, subsequent encounter for fracture with routine healing [facility] Displaced transverse fracture of shaft o f humerus, left arm, subsequent encounter for fracture with routine healing Office Visit Attender: Naima Elias/Fadi/Dawson/ [place]l 09/11/2020 01:45:00 PM EST [facility] ([facility] Outpatient Attender: Ernestine Hess MD 08/09/2020 12:00:00 A M [facility] Outpatient Attender: MARQUIS BARCENAS MD [id number] 08/08/2020 12:00:00 AM [facility] Outpatient Referrer: MARQUIS BARCENAS MD 08/08/2020 12:0 0:00 AM EST Displaced transverse fracture of shaft of humerus, left arm, initial encounter for closed fracture [facility] Displaced transverse fracture of shaft o f humerus, left arm, initial encounter for closed fracture Office Visit Attender: Darlene Baptiste RPA [place]ada/[place]/Dawson/R eindl 08/03/2020 09:00:00 AM EST [facility] ([facility] Outpatient Attender: MARQUIS BARCENAS MD [id number] 07/11/2020 12:00:00 AM [facility] Outpatient Referrer: MARQUIS BARCENAS MD 07/11/2020 12:0 0:00 AM EST Displaced oblique fracture of shaft of humerus, left arm, subsequent encounter for fracture with nonunion [facility] Displaced oblique fracture of shaft of h umerus, left arm, subsequent encounter for fracture with nonunion Outpatient Referrer: MARQUIS BARCENAS MD 07/11/2020 12:0 0:00 AM EST Pain in right [facility] Pain in right foot Outpatient Referrer: MARQUIS BARCENAS MD 07/11/2020 12:0 0:00 AM EST Pain in right ankle and joints of right [facility] Pain in right ankle and joints of right foot Outpatient Attender: Ernestine Hess MD 07/07/2020 12:00:00 A M [facility] Outpatient Attender: Darlene Baptiste RPA [place]ada/[place]/Dawson/R eindl 07/04/2020 12:30:00 PM EST [facility] ([facility] Outpatient Attender: Darlene Baptiste RPA [place]/Dawson/R eindl 06/26/2020 10:00:00 AM EST [facility] ([facility] Outpatient Attender: MARQUIS BARCENAS MD 06/26/2020 12:00:00 A M [facility] Outpatient Attender: MARQUIS BARCENAS MD [id number] 06/16/2020 12:0 0:00 AM EDT Displaced oblique fracture of shaft of humerus, left arm, subsequent encounter for fracture with nonunion [facility] Displaced oblique fracture of shaft of h umerus, left arm, subsequent encounter for fracture with nonunion Outpatient Referrer: MARQUIS BARCENAS MD 06/16/2020 12:0 0:00 AM EDT Displaced transverse fracture of shaft of humerus, left arm, initial encounter for closed fracture [facility] Displaced transverse fracture of shaft o f humerus, left arm, initial encounter for closed fracture Outpatient Attender: JD GUPTA DPM PCConsultant: MIKE GUERRA MD 06/13/2020 11:35:00 AM EDT - 06/13/2020 11:35:00 AM EDT [facility] Outpatient Attender: MARQUIS BARCENAS MDAdm itter: MARQUIS BARCENAS MDReferrer: MIKE GUERRA MD [id number] 06/01/2020 12:00:00 AM EDT - 06/02/2020 01:07:00 PM EDT Other injury of unspecified body region, initial encounter [facility] Other injury of unspecified body region, initial encounter Patient discharged. Outpatient Attender: AAMIR ARANDAeferrer: MARQUIS BARCENAS MD 0 [id number] 05/30/2020 12:00:00 AM EDT [facility] Outpatient Attender: Pastora Cruz RPA-C [id number] 12:00:00 AM EDT - 05/26/2020 02:00:23 PM EDT Malignant neoplasm of left kidney, excep t renal pelvis [facility] Malignant neoplasm of left kidney, excep t renal pelvis Outpatient Attender: MARQUIS BARCENAS MD [id number] 05/26/2020 12:0 0:00 AM EDT Displaced transverse fracture of shaft of humerus, left arm, initial encounter for closed fracture [facility] Displaced transverse fracture of shaft o f humerus, left arm, initial encounter for closed fracture Outpatient Attender: Naima Elias/Fadi/Dawson/ Zayda 05/25/2020 10:00:00 AM EDT [facility] ([facility] ) Emergency Attender: SANTIAGO GANDHIConsultant: MIKE Sexton MD 05/15/2020 08:59:00 PM EDT - 05/15/2020 10:20:00 PM EDT [facility] Patient discharged. Outpatient Attender: Pastora BURROUGHSCAttender: Ernestine william MD 05/12/2020 12:00:00 AM [facility] Outpatient Referrer: Ena Mejía 05/12/2020 12:00:00 A M [facility] Outpatient Attender: Pastora BURROUGHSCAttender: Ernestine william MD 04/28/2020 12:00:00 AM [facility] Outpatient Referrer: Ena Mejía 04/25/2020 12:00:00 A M [facility] Outpatient Attender: JLUIS WILKINSON MDConsultant: MIKE HERNANDEZ MD 08/12/2019 08:53:27 AM EST [facility] Immunizations Vaccine Date Status Description Data Source(s) COVID-19 VACCINE Moderna 11/20/2020 12:00:00 AM EDT completed [facility] Vaccine Series Complete: YESThis Data wa s Submitted to [facility] Via [employer]. COVID-19 VACCINE Moderna 10/23/2020 12:00:00 AM EST completed [facility] Vaccine Series Complete: NOThis Data was Submitted to [facility] Via [employer]. Medications Medication Brand Name Start Date Product Form Dose Route Admi nistrative Instructions Pharmacy Instructions Status Indications Reaction Description Data Source(s) Fluconazole 200 MG Oral Tablet [Diflucan] Diflucan 03/02/2021 1 2:00:00 AM EDT active [facility] ([facility]) febuxostat 40 MG Oral Tablet [Uloric] Uloric 03/01/2021 12:00:00 AM EDT ORAL active [facility] (Stacey Guerra MD) Levofloxacin 500 MG Oral Tablet Levofloxacin 02/23/2021 12:00:00 AM E DT ORAL completed [facility] ([facility]) Fluconazole 100 MG Oral Tablet [Diflucan] Diflucan 02/13/2021 1 2:00:00 AM EDT completed [facility] ([facility]) Amoxicillin 500 MG / Clavulanate 125 MG Oral Tablet [Augment in] Augmentin 01/16/2021 12:00:00 AM EDT ORAL completed [facility] ([facility]) Amoxicillin 500 MG / Clavulanate 125 MG Oral Tablet [Augment in] Augmentin 10/12/2020 12:00:00 AM EST ORAL completed [facility] ([facility]) Insulin Lispro 100 UNT/ML Injectable Solution Insulin Lispro 08/11/2020 12:00:00 AM EST active [facility] (Morris Guerra MD) BD Insulin Syringe Ultra-Fine/1ML/31G X 8mm 07/31/2020 12:00 :00 AM EST active [facility] (Mike Guerra MD) Ondansetron 4 MG Oral Tablet ondansetron (ZOFRAN) tabl et 4 mg ondansetron (ZOFRAN) tablet 4 mg 06/02/2020 12:03:48 PM EDT 4 mg Oral active 4 mg, Oral, Every 8 hours PRN, Nausea, Vomiting, Starting Fri06/02/20 at 1203, For 30 days [facility] Medication administered onsite 0.3 ML Enoxaparin sodium 100 MG/ML Prefi lled Syringe enoxaparin sodium (LOVENOX) injection 30 mg enoxaparin sodium (LOVENOX) injection 30 mg 06/02/2020 09:00:00 AM EDT 30 mg Subcutaneous active 30 mg, Subcutaneous, Every 12 hours Standard, First dose on Fri06/02/20 at 0900, For 30 days [facility] Medication administered onsite Spironolactone 25 MG Oral Tablet spironolactone (ALDAC TONE) tablet 25 mg spironolactone (ALDACTONE) tablet 25 mg 06/02/2020 09:00:00 AM EDT 25 mg Oral active 25 mg, Oral, Ev marycarmen morning, First dose on Fri06/02/20 at 0900, For 30 days [facility] Medication administered onsite Bumetanide 1 MG Oral Tablet bumetanide (BUMEX) tablet 1 mg bumetanide (BUMEX) tablet 1 mg 06/02/2020 09:00:00 AM EDT 1 mg Oral comple shanta 1 mg, Oral, Daily Standard, First dose on Fri06/02/20 at 0900, For 1 dose [facility] Medication administered onsite febuxostat 80 MG Oral Tablet febuxostat (ULORIC) table t 80 mg febuxostat (ULORIC) tablet 80 mg 06/02/2020 09:00:00 AM EDT 80 mg Oral active 80 mg, Oral, Every morning, First dose on Fri06/02/20 at 0900, For 30 days [facility] Medication administered onsite Insulin Glargine 100 UNT/ML Injectable S olution insulin glargine (LANTUS) injection 16 Units insulin glargine (LANTUS) injection 16 Units 0 09:00:00 AM EDT 16 U Subcutaneous active 16 Units, Subcutaneous, Every morning, First dose (after last modification) on Fri06/02/20 at 0900, For 30 doses
20 % dose reduction from home dose per therapeutic substitution policy T-13 For blood glucose less than 70 mg/dL: follow hypoglycemia protocol ( H-) and notify provider. For blood glucose values between 70 mg/dL and 100 mg/dL at bedtime: provide snack (15 grams of carbohydrates) with some protein. Administer FULL DOSE of insulin glargine (LANTUS) after snack. Record snack in I&O's. For blood glucose more than 400 mg/dL: notify provider
[facility] Medication administered onsite insulin lispro (HumaLOG) injection MEDIU M DOSE EATING INSULIN patients 1-16 Units [id number] 06/02/2020 08:00:00 AM EDT U Subcutaneous active 1-16 Units, Subcutaneous, Three Times Daily-With Meals, First dose on Fri06/02/20 at 0800, For 30 days
Nursing MUST open the 'SQ Insulin Dosing Charts' Sidebar Report, or, the Patient Summary or Summary Report within the ED.
[facility] Medication administered onsite Levothyroxine Sodium 0.05 MG Oral Tablet levothyroxine (SYNTHROID) tablet 50 mcg levothyroxine (SYNTHROID) tablet 50 mcg 06/02/2020 06:00:00 AM EDT 50 ug Oral active 50 mcg, Oral, Daily at 0600, First dose on Fri06/02/20 at 0600, For 30 days [facility] Medication administered onsite Oxycodone Hydrochloride 5 MG Oral Tablet oxyCODONE HCl 5 MG Oral Tablet (ROXICODONE) oxyCODONE HCl 5 MG Oral Tablet (ROXICODONE) 06/02/2020 12:00:00 AM EDT 5 mg Oral active Take 1 t ablet by mouth every 4 (four) hours as needed (1-2 as needed) for up to 6 days, Max Daily Dose: 30 mg [facility] Acetaminophen 325 MG Oral Tablet Acetaminophen 325 MG Oral T ablet 06/02/2020 12:00:00 AM EDT 650 mg Oral active Take 2 tablets by mouth every 6 (six) hours as needed for up to 10 days [facility] latanoprost 0.05 MG/ML Ophthalmic Soluti on latanoprost (XALATAN) 0.005 % ophthalmic solution 1 drop latanoprost (XALATAN) 0.005 % ophthalmic solution 1 drop 06/01/2020 10:00:00 PM EDT 1 [drp] Both Eyes active 1 drop, Both Eyes, Nightly, First dose on Vicki 06/01/20 at 2200, For 30 days [facility] Medication administered onsite Simvastatin 20 MG Oral Tablet simvastatin (ZOCOR) tabl et 40 mg simvastatin (ZOCOR) tablet 40 mg 06/01/2020 10:00:00 PM EDT 40 mg Oral active 40 mg, Oral, Nightly, First dose on Vicki 06/01/20 at 2200, For 30 days [facility] Medication administered onsite chlorhexidine gluconate 1.2 MG/ML Mouthw marnie chlorhexidine (PERIDEX) 0.12 % solution 15 mL chlorhexidine (PERIDEX) 0.12 % solution 15 mL 06/01/20 20 09:00:00 PM EDT 15 mL Mouth/Throat active 15 mL, Mouth/Throat, 2 Times Daily, First dose on Vicki 06/01/20 at 2100, For 30 days
Do not swallow.
[facility] Medication administered onsite carvedilol 6.25 MG Oral Tablet carvedilol (COREG) tabl et 12.5 mg carvedilol (COREG) tablet 12.5 mg 06/01/2020 09:00:00 PM EDT 12.5 mg Oral active 12.5 mg, Oral, 2 Times Daily, First dose on Vicki 06/01/20 at 2100, For 30 days [facility] Medication administered onsite Hydralazine Hydrochloride 10 MG Oral Tab let hydrALAZINE (APRESOLINE) tablet 50 mg hydrALAZINE (APRESOLINE) tablet 50 mg 06/01/2020 09:00:00 PM EDT 50 mg Oral active 50 mg, Oral, T hree Times Daily Standard, First dose on Vicki 06/01/20 at 2100, For 30 days
Check vital signs before administering
[facility] Medication administered onsite oxyCODONE (ROXICODONE) immediate release tablet 5 mg 06/01/2020 08:03:08 PM EDT 5 mg Oral active [Order 1 Start] Name: oxyCODONE (ROXICODONE) immediate release tablet 5 mg Signed Summary: 5 mg, Oral, Every 4 hours PRN, Moderate Pain (Pain Scale Score 4-6), Starting [facility] 06/01/20 at 2002, For 3 d ays
Oxycodone immediate release is limited to 10 mg per dose. Higher doses ([facility] only) require Pain Service consultation and approval.
[Order 1 End] [Order 2 Start] Name: oxyCODONE (ROXICODONE) immediate release tablet 10 mg Signed Summary: 10 mg, Oral, Every 4 hours PRN, Severe Pain (Pain Scale Score 7-10), Starting [facility] 06/01/20 at 2002, For 3 days
Oxycodone immediate release is limited to 10 mg per dose. Higher doses ([facility] only) require Pain Service consultation and approval.
[Order 2 End] [facility] Medication administered onsite 2 ML Metoclopramide 5 MG/ML Prefilled Sy ringe metoclopramide (REGLAN) injection 10 mg metoclopramide (REGLAN) injection 10 mg 06/01/2020 08:03:07 PM E DT 10 mg Intravenous active 10 mg, I ntravenous, Every 6 hours PRN, Heartburn, Nausea/Vomiting, Starting [facility] 06/01/20 at 2002, For 5 days [facility] Medication administered onsite Glucagon 1 MG Injection glucagon (human recombinant) ( GLUCAGEN) injection 1 mg glucagon (human recombinant) (GLUCAGEN) injection 1 mg 06/01/2020 08:03:06 PM EDT 1 mg Intramuscular active 1 mg, Intramuscular, PRN, for glucose <55 without IV access, Starting Vicki 06/01/20 at 2002, For 30 days [facility] Medication administered onsite Acetaminophen 325 MG Oral Tablet acetaminophen (TYLENO L) tablet 650 mg acetaminophen (TYLENOL) tablet 650 mg 06/01/2020 08:03:06 PM EDT 65 0 mg Oral active 650 mg, Oral, E very 6 hours PRN, Mild Pain (Pain Scale Score 1- 3), Starting Vicki 06/01/20 at 2002, For 30 days
Maximum daily dose of acetaminophen is 3,000 mg from all sources in 24 hours.
[facility] Medication administered onsite dextrose 50 % IV solution 25 mL [id number] 06/01/2020 08:03:06 PM E DT 25 mL Intravenous active 25 mL, Intrav enous, PRN, Other, blood glucose <55, Starting [facility] 06/01/20 at 2002, For 30 days
Not for midline administration.
[facility] Medication administered onsite Glucose 0.417 MG/MG Oral Gel glucose (GLUTOSE) 40 % or al gel 15 g glucose (GLUTOSE) 40 % oral gel 15 g 06/01/2020 08:03:06 PM EDT 15 g Oral active 15 g, Oral, PRN, Low blood s ugar, for gluose 55-69 mg/dl and able to take PO, Starting Vicki 06/01/20 at 2002, For 30 days [facility] Medication administered onsite Amlodipine 5 MG Oral Tablet amLODIPine Besylate 5 MG O ral Tablet (NORVASC) amLODIPine Besylate 5 MG Oral Tablet (NORVASC) 05/11/2020 12:00:00 AM EDT 5 mg Oral aborted Take 5 mg by mouth Two T imes Daily [facility] Calcitriol 0.0005 MG Oral Capsule Calcitriol 0.5 MCG O ral Capsule (ROCALTROL) Calcitriol 0.5 MCG Oral Capsule (ROCALTROL) 05/11/2020 12:00:00 AM EDT aborted TAKE 1 CAPSULE B Y MOUTH 3 TIMES A WEEK ON DAYS Friday AND FRIDAY [facility] Simvastatin 20 MG Oral Tablet Simvastatin 20 MG Oral T ablet (ZOCOR) Simvastatin 20 MG Oral Tablet (ZOCOR) 05/11/2020 12:00:00 AM EDT 20 mg Oral active Take 20 mg by mouth nightly [facility] Magnesium Oxide 400 MG Oral Tablet Magnesium Oxide 400 MG Oral Tablet (MAG-OX) Magnesium Oxide 400 MG Oral Tablet (MAG-OX) 05/11/2020 12:00:00 AM EDT 1 {tbl} Oral aborted Take 1 tablet by mouth n ightly [facility] 24 HR Isosorbide Mononitrate 30 MG Exten ded Release Oral Tablet Isosorbide Mononitrate ER 30 MG Oral Tablet Extended Release 24 Hour (IMDUR) Isosorbide Mononitrate ER 30 MG Oral Tablet Extended Release 24 Hour (IMDUR) 03/30/2020 12:00:00 AM EDT aborted TAKE 1 TABLET BY MOUTH ONCE DAILY IN THE MORNING [facility] pantoprazole 40 MG Delayed Release Oral Tablet pantoprazole (PROTONIX) 40 MG tablet pantoprazole (PROTONIX) 40 MG tablet 12/26/2017 12:00:00 AM EDT aborted Esophagitis take 1 tablet by mouth twice a day before meals [facility] Esophagitis Bumetanide 2 MG Oral Tablet bumetanide (BUMEX) 2 MG ta blet bumetanide (BUMEX) 2 MG tablet 07/28/2016 12:00:00 AM EST 1 mg Oral aborted Take 1 mg by mouth daily Per sarah pt takes 2mg BID except Friday and Friday pt takes 1mgPM [facility] Magnesium Oxide 400 MG Oral Tablet Magne sium Oxide (MAG-OX) 400 (241.3 MG) MG tablet Magnesium Oxide (MAG-OX) 400 (241.3 MG) MG tablet 03/27 12:00:00 AM EDT 400 mg Oral aborted Take 400 mg by m outh nightly [facility] carvedilol 12.5 MG Oral Tablet carvedilol (COREG) 12.5 MG tablet carvedilol (COREG) 12.5 MG tablet 10/06/2015 12:00:00 AM EST 12.5 mg Oral aborted Take 12.5 mg by mouth Two Times Daily [facility] Spironolactone 25 MG Oral Tablet spironolactone (ALDAC TONE) 25 MG tablet spironolactone (ALDACTONE) 25 MG tablet 05/02/2015 12:00:00 AM EDT 25 mg Oral aborted Take 25 mg by mouth every morning [facility] latanoprost 0.05 MG/ML Ophthalmic Soluti on latanoprost (XALATAN) 0.005 % ophthalmic solution latanoprost (XALATAN) 0.005 % ophthalmic solution 1 [drp] Both Eyes [facility] Carbonate-Vitamin D (CALCIUM 500/D PO) 500 mg Or al aborted Take 500 mg by mouth every morning [facility] febuxostat 80 MG Oral Tablet [Uloric] febuxostat (ULOR IC) 80 MG tablet febuxostat (ULORIC) 80 MG tablet 80 mg Oral abort ed Take 80 mg by mouth every morning [facility] Simvastatin 40 MG Oral Tablet simvastatin (ZOCOR) 40 M G tablet simvastatin (ZOCOR) 40 MG tablet 40 mg Oral aborted Stewart e 40 mg by mouth nightly [facility] ferrous sulfate 325 MG Oral Tablet ferrous sulfate 325 (65 FE) MG tablet ferrous sulfate 325 (65 FE) MG tablet 325 mg Oral aborted Take 325 mg by mouth every evening [facility] Insurance Providers Payer name Policy type / Coverage type Policy ID Covered alliance party ID Covered alliance party's relationship to monk Policy Monk Plan Information [facility] () Workers Compensation [id number] Self [id number] [facility]) Workers Compensation [id number] Self [id number] [facility] [facility] () Workers Compensation [id number] Self [id number] [facility] () Workers Compensation [id number] Self [id number] [employer] (pr) Medigap Part B [id number] Self [id number] [employer] (pr) Medigap Part B [id number] Self [id number] [employer] (pr) Medigap Part B [id number] Self [id number] [employer] (pr) Medigap Part B [id number] Self [id number] MEDICARE [id number] [place] [id number] [place] [id number] Self [id number] MEDICARE A [id number] Self [id number] A Medicare [place] Primary [id number] Self MEDICARE [id number] SP [id number] A Medicare [facility] Medicare Primary [id number] Self [id number] MEDICARE A [id number] Self [id number] MEDICARE [id number] SP [id number] MEDICARE [id number] [place] [id number] D80 [place] PPO [id number] SP [id number] BS [place] Medigap Part B [id number] .[id number] Self [id number] BS [place] Medigap Part B [id number] ..[id number] Self [id number] BS [place] Medigap Part B [id number] Self AARP U [id number] Self [id number] AARP U [id number] Self [id number] AARP U [id number] Self [id number] AARP U [id number] Self [id number] EM RISK MGMT WC W [id number] Empl W [id number] AARP HEALTH CARE OPTIONS [id number] SP [id number] [facility] [id number] [facility] [id number] EXCELLUS C [id number] Self [id number] OTHER B TRANSPLANT Self TRANSPLAN T Medicare Dme Supplies Medigap Part B [id number] ..[id number] Self [id number] [place] [id number] ..[id number] Self [id number] MEDICARE PI PI [facility] PI PI MEDICARE PART A-I/P [id number] 18 [id number] MEDICARE PART A-O/P [id number] 18 [id number] [place] Medigap Part B [id number] ..[id number] .[id number] Self [id number] [place] Medigap Part B [id number] .[id number] .[id number] Self [id number] Aarp Supplemental Plan Medigap Part B [id number] .[id number] Self [id number] Medicare Medicare Primary [id number] 2..[id number]. [id number] Self [id number] MEDICARE C [id number] S [id number] A Aarp Medigap Part B [id number] 03999.0 Self [id number] [place]/[facility] Medicare Primary [id number] Self [id number] MEDICARE PART A [facility] [id number] 18 [id number] [facility] HEALTH CARE OPTIONS [id number] Ghi/Emblem HLTH (pr) Medigap Part B [id number] 2..[id number] Self [id number] [facility] Medigap Part B [id number] 2..[id number] Self [id number] Aarp [facility] Options Medigap Part B [id number] 2..[id number] Self [id number] [place] Medigap Part B [id number] 2..1.349224.3.227.99 .[id number] Self [id number] [place]BS [place] Medigap Part B [id number] 2..1.011756.3.227.99 .802.901085.0 Self [id number] Aarp Supplemental Plan Medigap Part B [id number] 2..[id number] Self [id number] Medicare Medicare Primary [id number] 2..[id number]. [id number] Self [id number] Ghi/Emblem HLTH (pr) Medigap Part B [id number] Self [id number] BS [place] Medigap Part B [id number] Self [id number] [facility] Options Medigap Part B [id number] Self [id number] MEDICARE -O/P [id number] 18 [id number] Ghi/Emblem HLTH (pr) Medigap Part B [id number] Self BS [place] Medigap Part B [id number] Self [facility] Options Medigap Part B [id number] Self [place]BS [place] Medigap Part B [id number] Self BCBS [place] Medigap Part B [id number] Self Aarp Supplemental Plan Medigap Part B [id number] Self Medicare Medicare Primary [id number] Self [facility] SELF INS O UNKNOWN [id number] S UNKNOWN POMCO RISK MANAGEMENT [id number] 18 [id number] [facility] SELF INSURE-I/P UNKNOWN 18 UNKNOWN BCBS Of [place] Medigap Part B [id number] Self BCBS [place] Medigap Part B [id number] Self [facility] Medigap Part B [id number] Self MEDICARE -RECURRING [id number] 18 [id number] EXCELLUS BCBS S [id number] S [place] [id number] AARP O [id number] S [id number] BCBS HMO [place] O [id number] S [id number] MEDICARE OUTPATIENT M [id number] S [id number] BCBS [place] PPO 302/307 [id number] SP [id number] BLUE CROSS BLUE SHIELD-O/P [id number] 18 [id number] EXCELLUS [place] MEDICARE HM [id number] 18 [id number] MEDICARE PART A [facility] [id number] 18 [id number] MEDICARE -RECURRING [id number] 18 [id number] AARP HEALTH CARE OPTIONS-O/P [id number] 18 [id number] BLUE CROSS BLUE SHIELD -O/P [id number] 18 [id number] MEDICARE PART A-O/P [id number] 18 [id number] BLUE CROSS BLUE SHIELD [facility] [id number] 1 [id number] BLUE CROSS BLUE SHIELD -CLINIC [id number] 18 [id number] BLUE CROSS BLUE SHIELD -CLINIC [id number] 1 8 [id number] AARP [place] CARE [place] [id number] 18 [id number] MEDICARE C [id number] S [id number] AARP O [id number] S [id number] MEDICARE PART A-I/P [id number] 18 [id number] MEDICARE -SWING BED [id number] 18 [id number] AARP HEALTH CARE OPTIONS -PHYSICIAN [id number] 18 [id number] MEDICARE PART B -PHYSICIAN [id number] 18 [id number] MEDICARE -SWING BED [id number] 18 [id number] AARP HEALTH CARE OPTIONS -I/P [id number] 18 [id number] AARP HEALTH CARE OPTIONS -I/P [id number] MEDICARE PART A -I/P [id number] AARP HEALTH CARE OPTIONS -RECURRING [id number] 18 [id number] [facility] Options Medigap Part B [id number] Self [id number] Medicare Dme Supplies Medigap Part B [id number] Self [id number] [place] Primary [id number] Self [id number] [facility] Healthcare Options [facility] Part B [id number] Self [id number] Medicare Dme Supplies [facility] Part B [id number] Self [id number] [place] Primary [id number] Self [id number] [facility] Healthcare Options [facility] Part B [id number] Self [id number] Medicare Dme Supplies [facility] Part B [id number] Self [id number] [place] Primary [id number] Self [id number] [facility] Healthcare Options [facility] Part B [id number] Self [id number] Problems, Conditions, and Diagnoses Code Display Name Description Problem Type Effective Dates Data Source(s) Z5321 Procedure and treatment not carried out due to patient leaving prior to being seen by health care provider Procedure and treatment not carried out due to patient leaving prior to being seen by health care provider Diagnosis 03/26/2021 10:01:[address] [facility] G52285 Pressure ulcer of other site, stage 2 Pr essure ulcer of other site, stage 2 Diagnosis 03/22/2021 08:45:[address] [facility] E1151 Type 2 diabetes mellitus wit h diabetic peripheral angiopathy without gangrene Type 2 diabetes mellitus with diabetic p eripheral angiopathy without gangrene Diagnosis 03/22/2021 08:45:[address] [facility] H24032 Pain in left foot Pain in left foot Diagnosis 02/23/2021 10:21:[address] [facility] I00529 Cellulitis of left toe Cellulitis of left toe Diagnosi s 02/23/2021 10:21:[address] [facility] B351 Tinea unguium Tinea unguium Diagnosis 02/14/2021 09:47:[address] [facility] L84 Corns and callosities Corns and callosities Diagnosis 02/14/2021 09:47:[address] [facility] M2041 Other hammer toe(s) (acquired), right fo ot Other hammer toe(s) (acquired), right foot Diagnosis 02/14/2021 09:47:[address] [facility] M79.671 Pain in right foot Pain in right foot Diagnosis 10:35:33 AM [facility] M25.571 Pain in right ankle and joints of right foot Pain in right ankle and joints of right foot Diagnosis 07/11/2020 10:35:22 AM [facility] T14.8XXA Other injury of unspecified body region, initial encounter Other injury of unspecified body region, initial encounter Diagnosis 020 01:02:00 PM [facility] Closed displaced transverse fracture of shaft of left humerus, initial encounter [S42.322A] Closed displaced transverse fracture of shaft of left humerus, initial encounter [S42.322A] Diagnosis 06/01/2020 01:02:00 PM [facility] K41679 Unspecified place in unspeci fied non-institutional (private) residence as the place of occurrence of the external cause Unspecified place in unspecified non-institutional (private) residence as the place of occurrence of the external cause Diagnosis 05/15/2020 08:59:[address] [facility] Z809IHD Striking against or struck by other obje cts, initial encounter Striking against or struck by other objects, initial encounter Diagnosis 05/15/2020 08:59:[address] 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 supervisor type photography (cu rrent) use of aspirin Diagnosis 05/15/2020 08:59:00 PM EDT [facility] V53240P Displaced transverse fractur e of shaft of humerus, left arm, initial encounter for closed fracture Displaced transverse fracture of shaft o f humerus, left arm, initial encounter for closed fracture Diagnosis 05/15 08:59:00 PM EDT [facility] Q8274EY Unspecified injury of left shoulder and upper arm, initial encounter Unspecified injury of left shoulder and upper arm, initial encounter Diagnosis 05/15/2020 08:59:00 PM EDT [facility] Z99.2 End stage renal failure on dialysis End stage re nal failure on dialysis Problem 06/07/2021 12:00:00 AM EDT [facility] ([facility], ) E11.59 Peripheral vascular disorder due to diab etes mellitus Peripheral vascular disorder due to diabetes mellitus Problem 06/07/2021 12:00:00 AM ED T [facility] ([facility], ) I70.202 Atherosclerosis of arteries of the extre mities Atherosclerosis of arteries of the extremities Problem 06/07/2021 12:00:00 AM EDT [facility] ([facility], ) L97.522 Ulcer of foot Ulcer of foot Problem 06/07/2021 12:00:00 AM EDT [facility] ([facility], ) T82.858A Stricture of vein Stricture of vein Problem 06/07/2021 12:00:00 AM EDT [facility] ([facility], ) N18.6 End-stage renal disease End-stage renal disease Proble m 06/07/2021 12:00:00 AM EDT [facility] ([facility], ) M76.821 Tibialis tendinitis Tibialis tendinitis Problem 0 03/14/2021 12:00:00 AM EDT [facility] ([facility]) M35.7 Hypermobility syndrome Hypermobility syndrome Problem 03/14/2021 12:00:00 AM EDT [facility] ([facility]) L89.892 Pressure ulcer of left foot stage 2 Pressure ulc er of left foot stage 2 Problem 02/14/2021 12:00:00 AM EDT [facility] ([facility]) L03.032 Cellulitis of toe of left foot Cellulitis of toe of le ft foot Problem 02/07/2021 12:00:00 AM EDT [facility] ([facility]) E11.51 Peripheral vascular disorder due to diab etes mellitus Peripheral vascular disorder due to diabetes mellitus Problem 10/12/2020 12:00:00 AM ES T [facility] ([facility]) Surgeries/Procedures Procedure Description Date Indications Data Source(s) OFFICE OUTPATIENT VISIT 25 MINUTES 06/07/2021 12:00:00 AM EDT [facility] ([facility], ) OFFICE OUTPATIENT VISIT 10 MINUTES 03/22/2021 12:00:00 AM EDT [facility] ([facility]) XTRNL ECG < 48 HR RECORD SCAN STOR W/PHY R&I 12:00:00 AM EDT [facility] (Mike Guerra MD) ECG ROUTINE ECG W/LEAST 12 LDS W/I&R 03/01/2021 12:00: 00 AM EDT [facility] (Mike Guerra MD) ECHO TTHRC R-T 2D W/WOM-MODE COMPL SPEC&COLR DOP 03/01 12:00:00 AM EDT [facility] (Mike Guerra MD) OFFICE OUTPATIENT VISIT 25 MINUTES 03/01/2021 12:00:00 AM EDT [facility] (Mike Guerra MD) X-Ray Foot Complete 02/23/2021 12:00:00 AM EDT [facility] ([facility]) OFFICE OUTPATIENT VISIT 10 MINUTES 02/23/2021 12:00:00 AM EDT [facility] ([facility]) OFFICE OUTPATIENT VISIT 10 MINUTES 02/14/2021 12:00:00 AM EDT [facility] ([facility]) OFFICE OUTPATIENT VISIT 10 MINUTES 02/07/2021 12:00:00 AM EDT [facility] ([facility]) OFFICE OUTPATIENT VISIT 10 MINUTES 02/01/2021 12:00:00 AM EDT [facility] ([facility]) OFFICE OUTPATIENT VISIT 10 MINUTES 01/23/2021 12:00:00 AM EDT [facility] ([facility]) Pare Hyperkeratotic Lesion, 2-4 01/16/2021 12:00:00 AM EDT [facility] ([facility]) Debridement Nails Any Method 6 Or More 01/16/2021 12:0 0:00 AM EDT [facility] ([facility]) OFFICE OUTPATIENT VISIT 15 MINUTES 01/16/2021 12:00:00 AM EDT [facility] ([facility]) ARVEN ANAST OPN UPR ARM BASILIC VEIN TRPOS 12/28/2020 12:00:00 AM EDT [facility] ([facility], ) OFFICE OUTPATIENT VISIT 25 MINUTES 12/07/2020 12:00:00 AM EDT [facility] ([facility], ) OFFICE OUTPATIENT VISIT 15 MINUTES 11/23/2020 12:00:00 AM EDT [facility] ([facility]) OFFICE OUTPATIENT VISIT 10 MINUTES 10/19/2020 12:00:00 AM EST [facility] ([facility]) Pare Hyperkeratotic Lesion, 2-4 10/12/2020 12:00:00 AM EST [facility] ([facility]) Debridement Nails Any Method 6 Or More 10/12/2020 12:0 0:00 AM EST [facility] ([facility]) OFFICE OUTPATIENT VISIT 15 MINUTES 10/12/2020 12:00:00 AM EST [facility] ([facility]) Av Fistula Artery-Vein 07/27/2020 12:00:00 AM EST [facility] ([facility], ) Insertion Of Tunneled Centrally Inserted Central Venous Cath eter 06/26/2020 12:00:00 AM EST [facility] ([facility] Removal Of Tunneled Central Venous Catheter W/O Subcutaneous Port 06/26/2020 12:00:00 AM EST [facility] ([facility] ) Pare Hyperkeratotic Lesion, 2-4 06/13/2020 12:00:00 AM EDT [facility] ([facility]) Debridement Nails Any Method 6 Or More 06/13/2020 12:0 0:00 AM EDT [facility] ([facility]) POCT GLUCOSE, DOCKED <td>POCT GLUCOSE, DOCKED</td ><td>Routine</td><td>06/02/2020 12:18 PM EDT</td><td></td><td> </td> 06/02/2020 12:18:00 PM [facility] POCT GLUCOSE, DOCKED <td>POCT GLUCOSE, DOCKED</td ><td>Routine</td><td>06/02/2020 8:50 AM EDT</td><td></td><td> </td> 06/02/2020 08:50:00 AM [facility] GLUCOSE QUANTITATIVE BLOOD XCPT REAGENT STRIP <td>POCT GLUCOSE, DOCKED</td><td>Routine</td><td>06/01/2020 8:54 PM EDT</td><td></td><td> </td> 06/01/2020 08:54:00 PM [facility] RADEX HUMERUS MINIMUM 2 VIEWS <td>XR HUMERUS MIN 2 VIE WS PORT-OR 48910</td><td>Routine</td><td>06/01/2020 5:33 PM EDT</td><td> Fracture</td><td> </td> 06/01/2020 05:33:57 PM EDT Fracture [facility] Fracture CONFIRMATORY TYPE <td>CONFIRMATORY TYPE</td><t d>Routine</td><td>06/01/2020 4:49 PM EDT</td><td></td><td> </td> 06/01/2020 04:49:00 PM [facility] BLOOD TYPING ABO <td>TYPE AND SCREEN</td><td> Routine</td><td>06/01/2020 4:45 PM EDT</td><td></td><td> </td> 06/01/2020 04:45:00 PM EDT [facility] OPEN TREATMENT, HUMERAL SHAFT FX W/PLATE/SCREWS, W/WO CERCLAGE <td>OPEN TREATMENT, HUMERAL SHAFT FX W/PLATE/SCREWS, W/WO CERCLAGE</td><td></td><td>06/01/2020 3:20 PM EDT</td><td> Closed displaced transverse fracture of shaft of left humerus, initial encounter</td><td></td> 06/01/2020 03:20:00 PM EDT - 06/01/2020 06:17:00 PM ED T Closed displaced transverse fracture of shaft of left humerus, initial encounter [facility] Closed displaced transverse fracture of shaft of left humerus, initial encounter SURGERY CASE REQUEST OUTSIDE FACILITY ONLY <td>SURGERY CASE REQUEST OUTSIDE FACILITY ONLY</td><td>Routine</td><td>05/26/2020 8:41 AM EDT</td><td> Closed displaced transverse fracture of shaft of left humerus, initial encounter</td><td></td> 05/26/2020 08:41:46 AM EDT Closed displaced transverse fracture of shaft of left humerus, initial encounter [facility] Closed displaced transverse fracture of shaft of left humerus, initial encounter Results ID Date Data Source [id number] 05/02/2021 07:51:00 PM EDT [facility] (Mike Guerra MD) Name Value Range Interpretation Code Description Data Jolene rce(s) Supporting Document(s) Laboratory test finding (navigational concept) Laboratory test result [facility] (Mike Guerra MD) No growth after 72 hours . All specimens observed for 5 days. Results final at that time. No growth after 48 hours . All specimens observed for 5 days. Results final at that time. No growth after 24 hours . All specimens observed for 5 days. Results final at that time. NO GROWTH AFTER 5 DAYS ID Date Data Source [id number] 05/02/2021 07:51:00 PM EDT [facility] (Mike Guerra MD) Name Value Range Interpretation Code Description Data Jolene rce(s) Supporting Document(s) Lipoprotein lipase [Enzymatic activity/volume] in Serum or Plasm a 66 U/L 73-393 Below low normal [facility] (Mike Guerra MD) C reactive protein [Mass/volume] in Serum or Plasma by High sensitivity method 1.91 mg/dL 0.00-0.30 Above high normal [facility] (Mike Guerra MD) ID Date Data Source [id number] 05/02/2021 07:51:00 PM EDT [facility] (Mike Guerra MD) Name Value Range Interpretation Code Description Data Jolene rce(s) Supporting Document(s) Laboratory test finding (navigational concept) 32 mg/dL 7-18 Above high normal [facility] (Mike Guerra MD) Laboratory test finding (navigational concept) 251 mg/dL 7 0-100 Above high normal [facility] (Mike Guerra MD) Laboratory test finding (navigational concept) 18.2 Below low normal [facility] (Mike Guerra MD) <content>Units are mL/min/1.73 m2</content>
<content></content>
<content>Chronic Kidney Disease Staging per NKF:</content>
<content></content>
<content>Stage I & II GFR >=60 Normal to Mildly Decreased</content>
<content>Stage III GFR 30- 59 Moderately Decreased</content>
<content>Stage IV GFR 15-29 Severely Decreased</content>
<content>Stage V GFR <15 Very Little GFR Left</content>
<content>ESRD GFR <15 on POULTRY HATCHERY SUPERVISOR</content>
<content></content> Laboratory test finding (navigational concept) 3.54 mg/dL 0 .70-1.30 Above high normal [facility] (Mike Guerra MD) Laboratory test finding (navigational concept) 138 meq/L 1 36-145 Normal (applies to non-numeric results) [facility] (Mike Guerra MD) Laboratory test finding (navigational concept) 4.3 meq/L 3 .5-5.1 Normal (applies to non-numeric results) [facility] (Mike Guerra MD) Laboratory test finding (navigational concept) 103 meq/L 9 8-107 Normal (applies to non-numeric results) [facility] (Mike Guerra MD) Laboratory test finding (navigational concept) 30 meq/L 2 1-32 Normal (applies to non-numeric results) [facility] (Mike Guerra MD) Laboratory test finding (navigational concept) 5 meq/L 8-16 Below low normal [facility] (Mike Guerra MD) Laboratory test finding (navigational concept) 8.5 mg/dL 8 .8-10.2 Below low normal [facility] (Mike Guerra MD) ID Date Data Source [id number] 05/02/2021 07:51:00 PM EDT [facility] (Mike Guerra MD) Name Value Range Interpretation Code Description Data Jolene rce(s) Supporting Document(s) Laboratory test finding (navigational concept) 250 U/L 45-117 Above high normal [facility] (Mike Guerra MD) Laboratory test finding (navigational concept) 39 U/L 7-37 Above high normal [facility] (Mike Guerra MD) Laboratory test finding (navigational concept) 50 U/L 1 2-78 Normal (applies to non-numeric results) [facility] (Mike Guerra MD) Laboratory test finding (navigational concept) 0.3 mg/dL 0 .2-1.0 Normal (applies to non-numeric results) [facility] (Mike Guerra MD) Laboratory test finding (navigational concept) 0.1 mg/dL 0 .0-0.2 Normal (applies to non-numeric results) [facility] (Mike Guerra MD) Laboratory test finding (navigational concept) 6.3 GM/DL 6 .4-8.2 Below low normal [facility] (Mike Guerra MD) Laboratory test finding (navigational concept) 2.9 GM/DL 3 .2-5.2 Below low normal [facility] (Mike Guerra MD) Laboratory test finding (navigational concept) 0.9 Normal (applies to non- numeric results) [facility] (Mike Guerra MD) ID Date Data Source [id number] 05/02/2021 07:51:00 PM EDT [facility] (Mike Guerra MD) Name Value Range Interpretation Code Description Data Jolene rce(s) Supporting Document(s) Laboratory test finding (navigational concept) 2.4 ng/mL Normal (applies to non-numeric results) [facility] (Mike Guerra MD) Laboratory test finding (navigational concept) 44 U/L 3 9-308 Normal (applies to non-numeric results) [facility] (Mike Guerra MD) Laboratory test finding (navigational concept) 5.45 Above high normal [facility] (Mike Guerra MD) <content>DIAGNOSIS CRITERIA</content>
<content>MMB ng/ml Relative Index (RI)</content>
<content>NON-AMI < or = 5 N/A</content>
<content>CARR[place] ZONE > 5 < or = 4</content>
<content>AMI > 5 > 4</content>
<content></content> Laboratory test finding (navigational concept) 0.03 ng/mL Normal (applies to non-numeric results) [facility] (Mike Guerra MD) <content>Troponin I Reference Interval f or Siemens [place] LOCI:</content>
<content></content>
<content>99th Percentile= 0.00-0.045 ng/ml</content>
<content></content>
<content>Risk Stratification:</content>
<content><= 0.10 ng/ml Decreased Risk for Adverse Clinical</content>
<content>Events.</content>
<content>0.10-1.50 ng/ml Increased Risk for Adverse Clinical</content>
<content>Events. Evaluation of additional</content>
<content>criterion and/or repeat testing in 2-6</content>
<content>hours is suggested to rule out myocardial</content>
<content>damage.</content>
<content>>= 1.50 ng/ml Indicative of Myocardial Injury.</content>
<content></content> ID Date Data Source [id number] 05/02/2021 07:51:00 PM EDT [facility] (Mike Guerra MD) Name Value Range Interpretation Code Description Data Jolene rce(s) Supporting Document(s) Erythrocyte sedimentation rate by 2H Westergren method 60 mm/hr 0-20 Above high normal [facility] (Mike Guerra MD) ID Date Data Source [id number] 05/02/2021 07:51:00 PM EDT [facility] (Mike Gurera MD) Name Value Range Interpretation Code Description Data Jolene rce(s) Supporting Document(s) Laboratory test finding (navigational concept) 9.5 10 4 .0-10.0 Normal (applies to non-numeric results) [facility] (Mike Guerra MD) Laboratory test finding (navigational concept) 10.9 g/dL 1 3.5-17.5 Below low normal [facility] (Mike Guerra MD) Laboratory test finding (navigational concept) 3.31 10 4 .30-6.10 Below low normal [facility] (Mike Guerra MD) Laboratory test finding (navigational concept) 32.2 % 4 2.0-52.0 Below low normal [facility] (Mike Guerra MD) Laboratory test finding (navigational concept) 97.3 fl 8 0.0-96.0 Above high normal [facility] (Mike Guerra MD) Laboratory test finding (navigational concept) 32.9 pg 2 7.0-33.0 Normal (applies to non-numeric results) [facility] (Mike Guerra MD) Laboratory test finding (navigational concept) 13.9 % 1 1.5-14.5 Normal (applies to non-numeric results) [facility] (Mike Guerra MD) Laboratory test finding (navigational concept) 33.9 g/dL 3 2.0-36.5 Normal (applies to non-numeric results) [facility] (Mike Guerra MD) Laboratory test finding (navigational concept) 76.0 % 3 6.0-66.0 Above high normal [facility] (Mike Guerra MD) Laboratory test finding (navigational concept) 136 10 150-450 Below low normal [facility] (Mike Guerra MD) Laboratory test finding (navigational concept) 12.4 % 2 4.0-44.0 Below low normal [facility] (Mike Guerra MD) Laboratory test finding (navigational concept) 5.9 % 2 .0-8.0 Normal (applies to non-numeric results) [facility] (Mike Guerra MD) Laboratory test finding (navigational concept) 4.9 % 0.0-3.0 Above high normal [facility] (Mike Guerra MD) Laboratory test finding (navigational concept) 0.4 % 0 -3.0 Normal (applies to non-numeric results) [facility] (Mike Guerra MD) Laboratory test finding (navigational concept) 0.4 % 0 .0-1.0 Normal (applies to non-numeric results) [facility] (Mike Guerra MD) Laboratory test finding (navigational concept) 0.0 % 0 -0 Normal (applies to non- numeric results) [facility] (Mike Guerra MD) Laboratory test finding (navigational concept) 7.2 10 1 .5-8.5 Normal (applies to non-numeric results) [facility] (Mike Guerra MD) Laboratory test finding (navigational concept) 1.2 10 1.5-5.0 Below low normal [facility] (Mike Guerra MD) Laboratory test finding (navigational concept) 0.6 10 0 .0-0.8 Normal (applies to non-numeric results) [facility] (Mike Guerra MD) Laboratory test finding (navigational concept) 0.5 10 0 .0-0.5 Normal (applies to non-numeric results) [facility] (Mike Guerra MD) Laboratory test finding (navigational concept) 0.0 10 0 .0-0.2 Normal (applies to non-numeric results) [facility] (Mike Guerra MD) ID Date Data Source [id number] 03/22/2021 11:50:00 AM EDT [facility] ([facility]) Name Value Range Interpretation Code Description Data Jolene rce(s) Supporting Document(s) Bacteria identified in Wound by Culture Laboratory test result [facility] ([facility]) {SPECIMEN SOURCE : R GREAT TOE ID Date Data Source [id number] 03/27/2021 07:24:00 AM EDT [facility] Name Value Range Interpretation Code Description Data Jolene rce(s) Supporting Document(s) CULTURE WOUND [facility] _CULTURE WOUND_$$[id number]$$[id number]$$[id number] [id number]$$[id number]$$[id number]$$[id number] DATE/TIME: 03/26/2021 09:06Culture: CULTURE WOUND Status: FinalAerobic Bacterial Culture: [id number] skin jack Previous result entered on 03/25/2021 06:52 ET Specimen has been received and testing has been initiated.P1 Test performed [facility]: [facility] #: [id number] [address] [place] [address] [id number] [facility] [id number] Director : Ruben Sheldon MD NPI #: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 : 03/26/21.0752.XMT.SENT REF 03/27/21.0724.XMT.SENT REF 03/27/21.0724.CM .to PADMA KELSEY [facility] ID Date Data Source [id number] 03/22/2021 11:50:00 AM EDT [facility] (Mike Gu[facility] Name Value Range Interpretation Code Description Data Jolene rce(s) Supporting Document(s) Laboratory test finding (navigational concept) Laboratory test result [facility] (Mike Guerra MD) {SPECIMEN SOURCE : R GREAT TOE ID Date Data Source [id number] 02/23/2021 10:51:00 AM EDT [facility] ([facility]) Name Value Range Interpretation Code Description Data Jolene rce(s) Supporting Document(s) Bacteria identified in Wound by Culture Laboratory test result [facility] ([facility]) {SPECIMEN SOURCE : LEFT HALLUX ULCER ID Date Data Source [id number] 02/27/2021 05:17:00 PM EDT [facility] Name Value Range Interpretation Code Description Data Jolene rce(s) Supporting Document(s) CULTURE WOUND [facility] _CULTURE WOUND_$$[id number]$$[id number]$$[id number] [id number]$$[id number]$$[id number]$$[id number] DATE/TIME: 02/27/2021 17:05Culture: CULTURE WOUND Status: FinalAerobic Bacterial Culture: X8Qcsfp skin floraIsolate 1 Yeast Flag: A . . . . . . 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 : -- Continued on next page --Patient: RAMESH Tamayo Order: [id number] Page 2Culture: CULTURE WOUND Status: Final ==== 02/27/21.1718.XMT.SENT REF 02/27/21.1718.DW .to PADMA antony [facility] ID Date Data Source [id number] 02/23/2021 10:51:00 AM EDT [facility] (Mike Guerra MD) Name Value Range Interpretation Code Description Data Jolene rce(s) Supporting Document(s) Laboratory test finding (navigational concept) Laboratory test result [facility] (Mike Guerra MD) {SPECIMEN SOURCE : LEFT HALLUX ULCER ID Date Data Source [id number] 02/07/2021 09:45:00 AM EDT [facility] ([facility]) Name Value Range Interpretation Code Description Data Jolene rce(s) Supporting Document(s) Bacteria identified in Wound by Culture Laboratory test result [facility] ([facility]) {SPECIMEN SOURCE : LEFT GREAT TOE ID Date Data Source [id number] 02/12/2021 11:19:00 AM EDT [facility] Name Value Range Interpretation Code Description Data Jolene rce(s) Supporting Document(s) CULTURE WOUND [facility] _CULTURE WOUND_$$[id number]$$[id number]$$[id number] [id number]$$[id number]$$[id number]$$[id number] DATE/TIME: 02/12/2021 10:06Culture: CULTURE WOUND Status: FinalAerobic Bacterial Culture: P1Skin jack isolatedScant growth Previous result entered on 02/11/2021 10:26 ET Microbiological testing to rule out the presence of possible pathogensis in progress.Isolate 1 Yeast Flag: A . . . . . . .6isolatedModerate growthRequest for further identification must be madewithin 1 week. Previous result entered on 02/11/2021 10:26 ET Yeast isolated. Previous result entered on 02/10/2021 01:54 ET Yeast isolated.Yeast Flag: A -- Continued on next page --Patient: RAMESH Tamayo Order: [id number] Page 2Culture: CULTURE WOUND Status: Final ====P1 Test performed by: Neeru Gustafson [facility] #: [id number] [address] [place] [phone] [facility] [id number] Director : Ruben Sheldon MD NPI #: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 : 02/10/21.1824.XMT.SENT REF 02/12/21.0621.XMT.SENT REF 02/12/21.1119.XMT.SENT REF 02/12/21.1119. .to PADMA antony modem ID Date Data Source [id number] 02/07/2021 09:45:00 AM EDT [facility] (Mike Guerra MD) Name Value Range Interpretation Code Description Data Jolene rce(s) Supporting Document(s) Laboratory test finding (navigational concept) Laboratory test result [facility] (Mike Guerra MD) {SPECIMEN SOURCE : LEFT GREAT TOE ID Date Data Source [id number] 12/28/2020 03:00:00 PM EDT [facility] ([facility]) Name Value Range Interpretation Code Description Data Jolene rce(s) Supporting Document(s) Glucose [Mass/volume] in Capillary blood by Glucometer 204 mg/dL 83-110 Above high normal [facility] ([facility]) ID Date Data Source [id number] 12/28/2020 03:00:00 PM EDT [facility] (Mike Guerra MD) Name Value Range Interpretation Code Description Data Jolene rce(s) Supporting Document(s) Glucose [Mass/volume] in Capillary blood by Glucometer 204 mg/dL 83-110 Above high normal [facility] (Miek Guerra MD) ID Date Data Source [id number] 12/28/2020 11:41:00 AM EDT [facility] ([facility]) Name Value Range Interpretation Code Description Data Jolene rce(s) Supporting Document(s) Glucose [Mass/volume] in Capillary blood by Glucometer 177 mg/dL 83-110 Above high normal [facility] ([facility]) Doctor Notified ID Date Data Source [id number] 12/28/2020 11:41:00 AM EDT [facility] (Mike Guerra MD) Name Value Range Interpretation Code Description Data Jolene rce(s) Supporting Document(s) Glucose [Mass/volume] in Capillary blood by Glucometer 177 mg/dL 83-110 Above high normal [facility] (Mike Guerra MD) Doctor Notified ID Date Data Source [id number] 12/28/2020 11:36:00 AM EDT [facility] ([facility]) Name Value Range Interpretation Code Description Data Jolene rce(s) Supporting Document(s) Potassium [Moles/volume] in Serum or Plasma 4.1 meq/L 3.5- 5.1 Normal (applies to non-numeric results) [facility] ([facility] ) By: SANIR Time: 1105 By: SANIR Time: 1105 ID Date Data Source [id number] 12/28/2020 11:36:00 AM EDT [facility] (Mike Guerra MD) Name Value Range Interpretation Code Description Data Jolene rce(s) Supporting Document(s) Potassium [Moles/volume] in Serum or Plasma 4.1 meq/L 3.5- 5.1 Normal (applies to non-numeric results) [facility] (Mike Guerra MD) By: BRICE Time: 110 By: BRICE Time: 1104 ID Date Data Source [id number] 12/23/2020 10:30:00 AM EDT [facility] Name Value Range Interpretation Code Description Data Jolene rce(s) Supporting Document(s) SARS-CoV-2 (COVID-19) RNA [Presence] in Respiratory specimen by SANTIAGO with probe detection Not Detected [facility] This lab was ordered by [facility] and reported by [facility]. ID Date Data Source [id number] 10/12/2020 09:00:00 AM EST [facility] ([facility]) Name Value Range Interpretation Code Description Data Jolene rce(s) Supporting Document(s) Bacteria identified in Wound by Culture Laboratory test result [facility] ([facility]) {SPECIMEN SOURCE : L GREAT TOE ID Date Data Source [id number] 10/12/2020 09:00:00 AM EST [facility] (Mike Guerra MD) Name Value Range Interpretation Code Description Data Jolene rce(s) Supporting Document(s) Laboratory test finding (navigational concept) Laboratory test result [facility] (Mike Guerra MD) {SPECIMEN SOURCE : L GREAT TOE ID Date Data Source [id number] 10/15/2020 11:35:00 AM EST [facility] Name Value Range Interpretation Code Description Data Jolene rce(s) Supporting Document(s) CULTURE WOUND [facility] _CULTURE WOUND_$$[id number]$$[id number]$$[id number] 7878$$[id number]$$[id number]$$[id number] DATE/TIME: 10/15/2020 11:05Culture: CULTURE WOUND Status: FinalAerobic Bacterial Culture: P1No growth in 36 - 48 hours. Previous result entered on 10/14/2020 05:57 ET No growth after 18-24 hours.P1 Test performed by: Neeru CAMPBELL #: [id number] [address] [phone] [facility] [id number] Director : Ruben Sheldon MD NPI #: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 : 10/14/20.0805.XMT.SENT REF 10/15/20.1135.XMT.SENT REF 10/15/20.1135. .to PADMA COLE via modem ID Date Data Source [id number] 10/10/2020 10:37:35 AM EST [facility] Name Value Range Interpretation Code Description Data Jolene rce(s) Supporting Document(s) Progress Note [facility] CGONMv2oOqSZAqVi84/QEFsoFGTkk0ZgJFcuIQd1YBczZNLaR5ZmLRB8yX5pKZI2WGaAOiCdNvByHrH8 lbm [file] luis m+eJvhLaF0au3y2gbiTE8Y693HhivVmW/jyRyrQh Ys4BhmSY3M8sf1m45za4XQ7pgA8tdvzt2+Lf6phGMxltsbEudat304uBtcFNON99OrD9oxAiuwS3tnnq crGxmLmNpjQDUizzDp7LfiT9Vr2yAknM/yk1y4jYMtGd+lS6JN1cH4gqi9gGtMsene1ndSr6EXcnzm71 c9DzGoUwlPzUqqcuV29lOD9NX+aptWhUyQq8Y26Bpg Will/abK8HsB9qEC2AgB7SjIpvoVGTL2X61mfvD7KzpPgQLzQ2R53mIRyEM8abwMUvbw99q5l29eA7n8ke [file] X9PZPsQMDtD4H8TZV2GJIdRAR+YP3xYDq+Ta8Vf0ZsujM5okPhCYnqTFD5US8CCJBFJ0SEJj== ID Date Data Source [id number] 10/10/2020 10:36:53 AM [facility] XR HUMERUS AP LATERAL [id number] RESULTI nterpreted by:IRENE Khannalinical history: Status post ORIF left humerusViews: 4 views left humerusIndication: Check alignment status post ORIFFindings: Patient has had an anteriorly placed compression plate and screws securing a humeral shaft fracture in what appears to be anatomic position. Hardware appears to be of appropriate length and in good position. Previous lateral locking plate and screws remains in place. There appears to be significant progression of bone healing when compared to prior films and there is no evidence of hardware loosening or failure.Impression: Status post ORIF left humerus fracture with moderate to advanced bone healingThis document has been electronically signed by Marquis Barcenas MD on 10/10/2020 10:34 AM Name Value Range Interpretation Code Description Data Jolene rce(s) Supporting Document(s) ID Date Data Source [id number] 08/08/2020 10:54:19 AM EST [facility] Name Value Range Interpretation Code Description Data Jolene rce(s) Supporting Document(s) Progress Note [facility] KTSXRh5iLrNEZbGt30/UOHbaTPTvo0ZcRQehLDm3XBofDZAaF4MgEPP7yM0uMXN6FZoDOiEeBkPhHjW5 lbm FtRizOHrZhZJXeXmoNEqBxLCjnTdztmZMtFG0CdGQ6TAHkH50wOZHkEXZqF1CcTLW9JWA+Hc5MBSOljG YhWN7PFqhY1HmGLzCE9A3J/qGlSAlIYE/78HuRfkud7q9LKfvWnPBrVCtr0LJHswMg/o73c9xHPrs4fs 6Z7Py2FLl9vg1gFQvt//5mDc+xLIvF/9ypRRSFm8W+ /eyXjRVIhCXhOEX6QJhq0zNW+qPN/49onWccpl5tylVpDQ8+Md+M4FXRVoz7t2uQiGwc15HdMj5YEih2 Qo4vONCRGtiQyYQy2UIQPabzCsQClVDLAVsV6XrsRBhbKWQgP4D74BFjFy3dayOf3cX0X4QFT7vBizSM MCNGPSOx5N4R7yN+44H6Q7aNp4lZV3AtZjkChRNwwz 48MClrRDp9DlMIfYQYcLyvDZEB2O4v0C4fsoqvoam8csejpn9oHSSo4XXhoNSYtrEFT2YtqaoiIVaJo1 CPFT/OGvl2MNjzfGpc3OI9ZTGd8ih6NBzReAjw6LCZ1E9DlO75DfVe3TjIz/IKHSL9PKiodDZHtOk9e9 [place]/BP2QabrJn4R79c09FUoBvp07GrhP6eRENy7khm [file] 4Cn5JvpuL4fyAhABsqOGY0TO3FWIBMT4VNYh== ID Date Data Source [id number] 08/08/2020 10:38:41 AM [facility] XR HUMERUS AP LATERAL [id number] RESULTI nterpreted by:Marquis Barcenas MDClinical history: Status post ORIF left humerusViews: 4 views left humerusIndication: Check alignment status post ORIFFindings: Patient has had an anteriorly placed compression plate and screws securing a humeral shaft fracture in what appears to be anatomic position. Hardware appears to be of appropriate length and in good position. Previous lateral locking plate and screws remains in place. There appears to be some progression of bone healing when compared to prior films and there is no evidence of hardware loosening or failure.Impression: Status post ORIF left humerus fracture with early bone healingThis document has been electronically signed by Marquis Barcenas MD on 08/08/2020 10:36 AM Name Value Range Interpretation Code Description Data Jolene rce(s) Supporting Document(s) ID Date Data Source [id number] 07/27/2020 11:51:00 AM EST [facility] ([facility]) Name Value Range Interpretation Code Description Data Jolene rce(s) Supporting Document(s) Potassium [Moles/volume] in Serum or Plasma 3.8 meq/L 3.5- 5.1 Normal (applies to non-numeric results) [facility] ([facility] ) LAB DRAW IN PREOP PLEASE ID Date Data Source [id number] 07/27/2020 11:40:00 AM EST [facility] ([facility]) Name Value Range Interpretation Code Description Data Jolene rce(s) Supporting Document(s) Glucose [Mass/volume] in Capillary blood by Glucometer 222 mg/dL 83-110 Above high normal [facility] ([facility]) ID Date Data Source [id number] 07/22/2020 09:30:00 AM EST [facility] Name Value Range Interpretation Code Description Data Jolene rce(s) Supporting Document(s) SARS coronavirus 2 RNA [facility] This lab was ordered by [facility] and reported by [facility]. ID Date Data Source [id number] 07/11/2020 11:43:36 AM EST [facility] Name Value Range Interpretation Code Description Data Jolene rce(s) Supporting Document(s) Progress Note [facility] EYKCZs9qPkKOXwSs51/XRRgjWMYua2UrAEkrAPn7OSghTBHtC9XgMXQ9qH8jLMW3JQfTHzSsZbMwSIV7 lbm [file] ICAgICAgICAgICAgICAgICAgICAgICAgICAgICAgICAgICAgICAgICAgICAgICAgICAgICAgICAgICAg ICAgICAgICAgICAgICAgICANCiAgICAgICAgICAgIC AgICAgICAgICAgICAgICAgICAgICAgICAgICAgICAgICAgICAgICAgICAgICAgICAgICAgICAgICAgIC AgICAgICAgICAgICAgICAgICAgICAgICAgICANCiAgICAgICAgICAgICAgICAgICAgICAgICAgICAgIC AgICAgICAgICAgICAgICAgICAgICAgICAgICAgICAg ICAgICAgICAgICAgICAgICAgICAgICAgICAgICAgICAgICAgICANCiAgICAgICAgICAgICAgICAgICAg ICAgICAgICAgICAgICAgICAgICAgICAgICAgICAgICAgICAgICAgICAgICAgICAgICAgICAgICAgICAg ICAgICAgICAgICAgICAgICAgICANCiAgICAgICAgIC AgICAgICAgICAgICAgICAgICAgICAgICAgICAgICAgICAgICAgICAgICAgICAgICAgICAgICAgICAgIC AgICAgICAgICAgICAgICAgICAgICAgICAgICAgICANCiAgICAgICAgICAgICAgICAgICAgICAgICAgIC AgICAgICAgICAgICAgICAgICAgICAgICAgICAgICAg ICAgICAgICAgICAgICAgICAgICAgICAgICAgICAgICAgICAgICAgICANCiAgICAgICAgICAgICAgICAg ICAgICAgICAgICAgICAgICAgICAgICAgICAgICAgICAgICAgICAgICAgICAgICAgICAgICAgICAgICAg ICAgICAgICAgICAgICAgICAgICAgICANCiAgICAgIC AgICAgICAgICAgICAgICAgICAgICAgICAgICAgICAgICAgICAgICAgICAgICAgICAgICAgICAgICAgIC AgICAgICAgICAgICAgICAgICAgICAgICAgICAgICAgICANCiAgICAgICAgICAgICAgICAgICAgICAgIC AgICAgICAgICAgICAgICAgICAgICAgICAgICAgICAg ICAgICAgICAgICAgICAgICAgICAgICAgICAgICAgICAgICAgICAgICAgICANCiAgICAgICAgICAgICAg ICAgICAgICAgICAgICAgICAgICAgICAgICAgICAgICAgICAgICAgICAgICAgICAgICAgICAgICAgICAg ICAgICAgICAgICAgICAgICAgICAgICAgICANCjw/eH KhN7ganVNusiD4E8yqVx6IEg6VIW3uz2UuFZJtYNvtefHhMywTDkIyMDOjUuiIQex9KYqpSO2AfYLtF0 JiN3EdUXvlMR9YLEAhENXivXGdBFZoIWWlLzB5FTEnKGmpUB8IjKDnSDhuMGHeBJIcHF0QEGDkH988vy GqQD4WBa8BUfBdEE3gzt0NYHhaVZVsCqnQAba8HPlf IZ1SkRLbvLYbTMVuEZGQTjZkP7cat0LcBnZjCGZBBPmsUA4Ck1ApfORlFGe+Pe7QLX8lq4TsQSfjSADe EK1vqd8RPSpTEoGhK7QvoLunYATsk1vhQKXgOM0cfSXoJAY4HHJgcCNlXVyuCEHuiWV0RJHLGLFuvDNt FI8aMj1fICAfLUJrZlLdKYGGDQ1YFIPiSJQunBClOJ WfEYBVBK0AGGikZXD1SHNmjmYnqZBlOKoeNN4LOSNmgtGhDFoxXSQFAKm+Yu6TCL4fx3TdZYseEVWpIN 6emu9KYUqXSrHtN7K5aWRyH4C1DEfqJf9PFSCkEZPtIBraJRASHHpgWY4ZOO1qfwY9VO2GqQYsCBWhDH MkhTDvYCl7V41enYWaOSquOL7VHDB+Beatrice+Qs6HJMYb CNToZNNsJoFjMNYTAlDhN1HyO0QCp3EiR7TvHM78rEcgttUyZZoiQQ3BIU0cPZEeIUXBRS4GeJJlkO4n ndRcEGFtYRKTDeZxR60zhLUeQTYwKMU6PSHzBj7GTMJuW0ZxzuRodAezqoZuFTEgRVODMD5ADVzphcSd wXRfjLfnJJ56qVarGF6JMr8UTlEqKY7ier6ReFXvKk 7WAPVcHv2UJIEcTIPeNROjVJC8UGObRqWiIUxwMEOnNSHjVYO8PYHqZJWzMQ0EOfJoHNVsJZosWInzIV PoULIrbg8JUBUrWDOcQJw5CoNaQAEuQWQgLNowPYBiVEHzGBN3SZBqFAHjMU5ZNbOxGCPoJCTxGWYuOC UuYYQgkw0VCYKyTWIbYjO7BBRyQTBwPRMcTAvcSZLw DJHfKwN3SGRoTLMhKE5UAqZlYJZuMWM4XUSlMVVrFCQlui0BTCByNZMbOqYtMwNmSPFdPAVfDCezNGMq KKN1VSicMEObOZRcDP2RPoNkXUEeOHF7ZJEjYUMvAQRhng0DERXiCXScFOh3XCBhLITvXZBlJWkbTSRu KRR5OjX4RSToFUIaNI0UNtXsDCVcIVD0GMVaTHTpAV Ipxg8MWUCqGVPrVyj8EIOiVPKjMJWwZQrlMHFpPBG1YReqMKGzECRuZW1EEmDfYEHxIYslKrJqCNGbXT Hemg6RHMTyVQCwEtUaJrYgQOXdRXEaXGyeJNPgKAD3NJw9DITgTQHfKK4KToGwKRTpVZnaTVPyNOArIA Exir2EEHAzBWNaZWH3DCGxACKcNUFkWZp6mcFbqDXf NBk7YJ8OP2ZsolCqOeVYLl6Ai588OKDvKSSkCx6FO4uzHq6qRHOqFEQPSj3JSHq4EqYjBYSqLPKjURqb MQPaLoBoVqBhZBA8DDTiTQKgKWU+GMj2Z7BpDAGuWZUjB1EhWrJ1VLCuAlWpDDO1VhI8UZJ2YA8rEHQK Cj4+YOyqeIVbbNjaNZPRVkT9VAD1AWojVOXLGb3Q ID Date Data Source [id number] 07/11/2020 11:21:24 AM EST [facility] XR HUMERUS AP LATERAL [id number] RESULTI nterpreted by:IRENE Khannalinical history: Status post ORIF left humerusViews: 4 views left humerusIndication: Check alignment status post ORIFFindings: Patient has had an anteriorly placed compression plate and screws securing a humeral shaft fracture in what appears to be anatomic position. Hardware appears to be of appropriate length and in good position. Previous lateral locking plate and screws remains in place. Overlying anterior skin jordy are visualized.Impression: Status post ORIF left humerus fractureThis document has been electronically signed by Marquis Barcenas MD on 07/11/2020 11:19 AM Name Value Range Interpretation Code Description Data Jolene rce(s) Supporting Document(s) ID Date Data Source [id number] 07/11/2020 11:20:33 AM [facility] XR FOOT 3 OR MORE VIEWS [id number] RESUL TInterpreted by:IRENE Khannalinical history: Right foot painViews: 4 views right footIndication: Check for sources of pain right footFindings: The patient has normal-appearing distal tibia and fibula. The ankle mortise is intact. The syndesmosis also looks solid. There is some mild degenerative changes at the ankle mortise as well as the talonavicular joint. Mid tarsal articulations also show some mild degenerative change. Some spurring on the calcaneus at the Achilles insertion and plantar fascial origin are also noted. Significant atherosclerotic disease in the posterior tibial system is also noted. Patient has normal appearing TMT joints. There is some arthritic degeneration noted at the TMT joints of the lesser toes. Some periosteal reaction between the third and fourth metatarsal shafts but no acute fracture is noted. Mild degenerative changes in the toes are noted however no acute bony trauma to the toes are appreciated.Impression: M ild degenerative changes right ankle and foot with no obvious acute trauma.This document has been electronically signed by Marquis Barcenas MD on 07/11/2020 11:18 AM Name Value Range Interpretation Code Description Data Jolene rce(s) Supporting Document(s) ID Date Data Source [id number] 07/11/2020 11:19:03 AM [facility] XR ANKLE 3 OR MORE VIEWS [id number] RESU LTInterpreted by:IRENE Khannalinical history: Right ankle painViews: 4 views right ankleIndication: Check for sources of pain right ankleFindings: The patient has normal-appearing distal tibia and fibula. The ankle mortise is intact. The syndesmosis also looks solid. There is some mild degenerative changes at the ankle mortise as well as the talonavicular joint. Mid tarsal articulations also show some mild degenerative change. Some spurring on the calcaneus at the Achilles insertion and plantar fascial origin are also noted. Significant atherosclerotic disease in the posterior tibial system is also noted.Impression: Mild degenerative changes right ankle with no acute trauma.This document has been electronically signed by Marquis Barcenas MD on 07/11/2020 11:16 AM Name Value Range Interpretation Code Description Data Jolene rce(s) Supporting Document(s) ID Date Data Source [id number] 06/26/2020 01:08:00 PM EST [facility] ([facility] ) Name Value Range Interpretation Code Description Data Jolene rce(s) Supporting Document(s) Glucose [Mass/volume] in Capillary blood by Glucometer 225 mg/dL 83-110 Above high normal [facility] ([facility], ) ID Date Data Source [id number] 06/16/2020 10:18:55 AM EDT [facility] Name Value Range Interpretation Code Description Data Jolene rce(s) Supporting Document(s) Progress Note [facility] KKFMNs9lEuVROwOd61/TIFrcRCPzf2UwTDxaETq2SGwkYTFeX8BtMMP3cQ8mUXT9RKeSDcTkGlAaJTDj [facility] [file] 0gDQo+Fh4Je8SmcbE2imOxMHmkUZAfYu1MSWCMQ2PBWa== ID Date Data Source [id number] 06/16/2020 10:14:20 AM EDT [facility] XR HUMERUS AP LATERAL [id number] RESULTI nterpreted by:IRENE Khannalinical history: Status post ORIF left humerusViews: 4 views left humerusIndication: Check alignment status post ORIFFindings: Patient has had an anteriorly placed compression plate and screws securing a humeral shaft fracture and what appears to be anatomic position. Hardware appears to be of appropriate length and in good position. Previous lateral locking plate and screws remains in place. Overlying anterior skin jordy are visualized.Impression: Status post ORIF left humerus fractureThis document has been electronically signed by Marquis Barcenas MD on 06/16/2020 10:12 AM Name Value Range Interpretation Code Description Data Jolene rce(s) Supporting Document(s) ID Date Data Source [id number] 06/02/2020 01:57:46 PM EDT [facility] Name Value Range Interpretation Code Description Data Jolene rce(s) Supporting Document(s) Consultation [facility] FPDSRj8tAtOHAwEm98/IRHqvYRHxb6QmFHwqZRl9VTrtBWCtJ2GiYYT1hW3vPFF0SBbZOfQyHyAgQGN1 lbm [file] ZlN2U+DX9lQBn+In9Oa4GlxqA0tuGjBMdjPAX1LO0USTBUG2IOQl== ID Date Data Source [id number] 06/02/2020 01:20:34 PM EDT [facility] Name Value Range Interpretation Code Description Data Jolene rce(s) Supporting Document(s) Progress Note [facility] BWWYQd5lBpNMHqXc63/GFOleDBSgq3RoHWckEPh8APzmAHRdO0RnJCD3pF6zLEO5ZOrIXvBhLcFbXUN0 lbm [file] AgICAgICAgICAgICAgICAgICAgICAgICAgICAgICAgICAgICAgICAgICAgICAgICAgICAgICAgICAgIC AgICAgICAgICAgICAgICAgICAgICAgICAgICAgICAgICAgICAgICANCiAgICAgICAgICAgICAgICAgIC AgICAgICAgICAgICAgICAgICAgICAgICAgICAgICAg ICAgICAgICAgICAgICAgICAgICAgICAgICAgICAgICAgICAgICAgICAgICAgICAgICANCiAgICAgICAg ICAgICAgICAgICAgICAgICAgICAgICAgICAgICAgICAgICAgICAgICAgICAgICAgICAgICAgICAgICAg ICAgICAgICAgICAgICAgICAgICAgICAgICAgICAgIC ANCiAgICAgICAgICAgICAgICAgICAgICAgICAgICAgICAgICAgICAgICAgICAgICAgICAgICAgICAgIC AgICAgICAgICAgICAgICAgICAgICAgICAgICAgICAgICAgICAgICAgICANCiAgICAgICAgICAgICAgIC AgICAgICAgICAgICAgICAgICAgICAgICAgICAgICAg ICAgICAgICAgICAgICAgICAgICAgICAgICAgICAgICAgICAgICAgICAgICAgICAgICAgICANCiAgICAg ICAgICAgICAgICAgICAgICAgICAgICAgICAgICAgICAgICAgICAgICAgICAgICAgICAgICAgICAgICAg ICAgICAgICAgICAgICAgICAgICAgICAgICAgICAgIC AgICANCiAgICAgICAgICAgICAgICAgICAgICAgICAgICAgICAgICAgICAgICAgICAgICAgICAgICAgIC AgICAgICAgICAgICAgICAgICAgICAgICAgICAgICAgICAgICAgICAgICAgICANCiAgICAgICAgICAgIC AgICAgICAgICAgICAgICAgICAgICAgICAgICAgICAg ICAgICAgICAgICAgICAgICAgICAgICAgICAgICAgICAgICAgICAgICAgICAgICAgICAgICAgICANCiAg ICAgICAgICAgICAgICAgICAgICAgICAgICAgICAgICAgICAgICAgICAgICAgICAgICAgICAgICAgICAg ICAgICAgICAgICAgICAgICAgICAgICAgICAgICAgIC AgICAgICANCiAgICAgICAgICAgICAgICAgICAgICAgICAgICAgICAgICAgICAgICAgICAgICAgICAgIC AgICAgICAgICAgICAgICAgICAgICAgICAgICAgICAgICAgICAgICAgICAgICAgICANCjw/yHTlA0skjR GudxR5I5kqGk4DXm7CRU4hy4NuMKDmJPdspnLaJtwU EjMmDEZtDenDIoa9QTsmLK3LaHUxP1WeP3WcDYiyQT5IYDLpMYCqbWYbTGRbMOYjSeA1QEIuCRluEF7V wLSnYRagYJDjSTZuQZ1AQRVhH725msOnTY5YHw4MPzArVZ0vsh6JLJOsKNWzBunNYtz6FUglNE5AoNKq aOSqWAVjPBXWPmSuS9llf7YwLAMjVIOGOOmxJQ4Eu9 VudCAxDQo+Qg7HOE7ne2XjOFnnDBRkRG7tjq9BHAtJIiFmQ5QmuBnpFGLat2uuYNOiCA7coLXsKVB1RY mrfzgsBxRKMQpytL9kAPZSVcBrsLBaLE98UuZjVuHcMOX7DOJpDL8tHAfwIP6TOAJ1MDfrGMKlAYUaZ3 fILgCgVZBwEzFrjWwfKN1EKoGjS5AfblWgkCFgWMCz IFINCj4+RPsdddSxRniLAoF0YXImd1BpRXv3CM4FXHPjURacYY2GBNLmbK5lZFjePD7BGxRsXpWkEDTA AkXaV36rgBVpFXs4O4EbLiBuLAUtLrfkVTKsXQkvBvUyAPUhWoXzRNhfZO5+ID4+COfvVZ2NBAhuxzBn ETZgTf2JDNKxKTFdJU6xPHVqLPLtV2L9rCrmFSPRVh WeP2gkgjbvYV1rWADnP883vRwjgbAfVFC8EAVyRa0VSCIfSTA9MAOlnLZbKAIqZFPICYddAK0UvMCcYY A9dU5aQIepPBAgPVLvK9zAIhGxhMiiPZ03kPqyehWycJVmVDf+Ho6JSU1nx9OmHVz0dgEuNReeTCT7TZ axXIEmIGYtBXRiRGQ0SFA0AWOAKzUxDOJqUIIgTGde ZDMuYMQkcz6HFNPgXBCdFYF2XIHjVSJwZXBwRTfgPUPhLQZ0QzK5UGDwFPOaLI1XWzHwGRDbUJKxIUwl TGXbITYyze1LMFRwBEByOWrtXQXzSDEvMMMbQDslEMOtRCXvUEG4JIReMBDfRP0YTxSbMPVaONC6PNnr GDPhANViks5WEPXdRALpNdV3WwFmXCSgFJKrFTqcFS AuLLLbPhcjZBArPEAhFS2IYyEoNRMkIHLaEmMyAOKsADWrti9DOOHcDEVaEAJkJvQdXJSeLSJaWQirTX WbEZS0CtWaROMxXQUmAH4TDjWxMGUbNWJdPnRcHDUlSZUxee5QTEHgTLAcAhQ4EqTnEDZbPFGxNKkwWX PyNYD8QBUaCSHpTYTfMP9WYmTqEMGaVZJ5UYCvDHOp LMQpyk2PkJAqvOiybf9HXRySZz7HpJkrETZ7DDcjJt5euHIfRvWuJLUGFu8FswDpDPLdNJJDSMogTTIc KJHdSIibGWHzNaMmLDI1XCahOHHfVMF8PINsLaH1BZZoCcT6W4RyUGTiWMOeTXH1GAymM6CoCeP0JmCg RCW5Fsp0T4M+LS9qCTt+Ik4Ww1LtwwG9cgMiDNj4MEO7UZmlDNLCJg2X ID Date Data Source [id number] 06/02/2020 12:21:10 PM EDT [facility] Name Value Range Interpretation Code Description Data Jolene rce(s) Supporting Document(s) Glucose [Mass/volume] in Capillary blood by Glucometer 249 mg/dL 70- 140 H [facility] ID Date Data Source [id number] 06/02/2020 11:47:43 AM EDT [facility] Name Value Range Interpretation Code Description Data Jolene rce(s) Supporting Document(s) Progress Note [facility] OTBWCi1kGzADTgSj17/DXJruCMTcl4SbGOxxDFa2VErqHSBhH5ObSVS7iF5aAGA0KRiDYdCzDyNiOPZ1 lbm [file] plbmRvYmoNCjIgMCBvYmoNCiAgPDwNCiAgICAvUHJv Q6YgqOLzH6YLOo4DPRc8Q8erMMrsZv4YyNPzZGGiKXksTEEhY8MlgbGsVAchT7IkOHhxWUQRPXtaREDe UNZmOyZlRLDkMVFUEc5MJcVuTQNmOM6tebHijQN6FZM+Wk4ARPMhZR5VnMFYM9PddPWtFXhlJ2JWGY3M VPC8ZM3LyCIsOB6LkVDXZ4PjkPApNk8qBPEsn9HyDn 9nF6SLNMPFJCKtGVoaTLqkMUKjSPh9G4B9KUIcB9MLZ739rZYrvFl7Nr8eO8MVPOzTUfCsOGqsHEitVY RuUVr7R5A5KXHdW1AMM6UvByVnenDuZ8L+ZuHhWBYWWE1DGVNFICu6U8Z2bARxL9P9gJvMcKL6GK1SVX 9CaALrpQZmw75+YwIOIpNrTAOcX3DWNITBRyLoFKch XOycPVVsXLw8C0P6GVIlG8KTU8rdS4y6US5+JeISSjUrDVTlNs4SRuFoIu5WRfVcKY4aue8NPOFdIOSa BktOTtw6S6boehe3zNVrZrV7C4O6YyH5vCHcZG0UN0P0cFCbEEG9CGLsxCT+Sc5Za6MsZJMuARs2T0hy JKWeWITrPpLrnD93O++6xrsqhFA7I7d7AHGEdJXhpA jCmeWdO2pEVVI0t8V0QQg/Mp1QBQC6nMb6eGIgWZPjYNj3vE0ysWc5SlXwCB56GMBxAXccnL8fSzo8O5 Ybj5PrAd3lHl4iuBPtQg4PItHzMKV1tbJsXwSGFeO4mLokuwhcAWL9C3p3uDG4Nt97s0tdclXpg5WuCz O8FFaxODXbUaEgpzNpKMU1biOukD7jbgTlJj6NMCOk ULqkidOxJxXCLw1IDuLhWO20MeqzxD6cxZY+DQogICAgICAgICAgICAgICAgICAgICAgICAgICAgICAg ICAgICAgICAgICAgICAgICAgICAgICAgICAgICAgICAgICAgICAgICAgICAgICAgICAgICAgICAgICAg ICAgICAgICAgDQogICAgICAgICAgICAgICAgICAgIC AgICAgICAgICAgICAgICAgICAgICAgICAgICAgICAgICAgICAgICAgICAgICAgICAgICAgICAgICAgIC AgICAgICAgICAgICAgICAgICAgDQogICAgICAgICAgICAgICAgICAgICAgICAgICAgICAgICAgICAgIC AgICAgICAgICAgICAgICAgICAgICAgICAgICAgICAg ICAgICAgICAgICAgICAgICAgICAgICAgICAgICAgDQogICAgICAgICAgICAgICAgICAgICAgICAgICAg ICAgICAgICAgICAgICAgICAgICAgICAgICAgICAgICAgICAgICAgICAgICAgICAgICAgICAgICAgICAg ICAgICAgICAgICAgDQogICAgICAgICAgICAgICAgIC AgICAgICAgICAgICAgICAgICAgICAgICAgICAgICAgICAgICAgICAgICAgICAgICAgICAgICAgICAgIC AgICAgICAgICAgICAgICAgICAgICAgDQogICAgICAgICAgICAgICAgICAgICAgICAgICAgICAgICAgIC AgICAgICAgICAgICAgICAgICAgICAgICAgICAgICAg ICAgICAgICAgICAgICAgICAgICAgICAgICAgICAgICAgDQogICAgICAgICAgICAgICAgICAgICAgICAg ICAgICAgICAgICAgICAgICAgICAgICAgICAgICAgICAgICAgICAgICAgICAgICAgICAgICAgICAgICAg ICAgICAgICAgICAgICAgDQogICAgICAgICAgICAgIC AgICAgICAgICAgICAgICAgICAgICAgICAgICAgICAgICAgICAgICAgICAgICAgICAgICAgICAgICAgIC AgICAgICAgICAgICAgICAgICAgICAgICAgDQogICAgICAgICAgICAgICAgICAgICAgICAgICAgICAgIC AgICAgICAgICAgICAgICAgICAgICAgICAgICAgICAg ICAgICAgICAgICAgICAgICAgICAgICAgICAgICAgICAgICAgDQogICAgICAgICAgICAgICAgICAgICAg ICAgICAgICAgICAgICAgICAgICAgICAgICAgICAgICAgICAgICAgICAgICAgICAgICAgICAgICAgICAg RNVaVWIsFRBbBOIsYSZeULApNFq0B8cgWSKhZILqKP 6qAYp2Ug1+MNiSOcFnBOX7xrUjzC3IUT9fp7OoCDtjBNWzf8PmLJw1AI6RNDUsRCevRM3RVKtrsp3RSP WfGJUuxSZXo8leHsRnNYK2SZOuLlnlPL8ZTZZnI9lmxyDkKQQoBNHCNJ6GVuNiE1TyuX63IGLSIr1+DQ rhchUxGxtDLuO4CHBwp6GyYTc6HQ3ZRYCwFgkyc2Ly OZNlRDWQCDdaEB2VQNB9UOZ6ZPGeCd6NMGGqN587dgPcBA1NVv1RCdKwGM0azc5JGTWmPETqGscGCym8 SCagJS5XxHXlHKgYia7pykHkcsCRp6TlyuZowBQNa04bYRCtF7Qbt3davdkpYe7bWAZiXGWkDB7lZSPb JWXcNiT4KPOWYI3AKHPvNLZpqIThAJEpNWFAHI0WBO emXRR6SWIybmGxtHQiARlpUL0QTIZtzpOuXBLoIBPGVCm+Et5OPT7ye0TfDIuyXjMzEY4pih7OLGaIDf BlW2N4nSDqT4T1MSloCd3XUUOhFACjCZLcEGFPGToeLD3CNZ5czmP7IZ8YuVTcJSGxGJDvcIUnOXt2C7 8ycPBoIJamZB6RRSH+Beatrice+Iw3DDFHlRTMnNFAdFpGa XVBCJaXtU9CrJ5PGh6NvR4PlWO36bUccduGxKLblKN9DCA5wKHCvTZLWHN2ExYOctW0kmhWwUSWeDQST RrBfY52kcIMrMIYfVHYyNUYpBa4QPOKcW4VeyaOauJerqlGvZESbMQUUNP9FIAaeyzMeuUWynKwfWK24 iDixPB3GWn9YBhJwIR1jos7BnOTrPt3BMVVhTr8HUG EuPLQtUHTtTKA6QLZaFvNkPAhhJZVpSFInCSE3YFPdBHDbNK2IYvEaSYJzYXT0FyWlULFgYUAdal2RNK JlAGZzKaT5MqXwVVJyFKKgIWgaWZMeXIBnDTW0UCFlJGOqPT5JNlPeGPPwLBL9CUWqWALoBVPdtk7KWY AsQZYwDOptUdIiTIUkRVNkNAxlAGDkGBLjAst6SCGi JHSlXN3KNoAbPTZzOJA9SrWcNGRuJAVcjl2HJDLkKJUtKqL4ZUOhBCVvWCDqOIglTQEeKNB6XUY5SXFm SDVsFJ3HJcQtTNGfVDBmCUEhDEBfOHBdgq0JNBDeRMLmQHT3YNLsPTEjPLOzMRcdTYKeMDL2WMTyTNQx GWEjSC6ZYzUpJCJsZCZnNSDrULGvSIGfiz8MPSAxVF OlVjUeOSLbAOSqPXIoLYenSMHpGNU7DBEbJDQhTGSpXG1ZDkBnCSzaHDWNCiv5AGsjR9x1ETCuIu1OZ4 Qne3AoKNJdLXEHEMnqWU3xxcMvHCKgDs0XF1mFEvtcIHD0FPTfRHAvAgJ0WbJ6PuYeRFhwDjxcHjXsEt xbNd4nUHCsDXq6GRM4PKS0UTajRsT1OxFyEMJoTyJe A0ToTXF5WaPwNB1OQf1MBvY9GPD9wXCyTp6XUltzMG2QUXOIL7MSZq== ID Date Data Source [id number] 06/02/2020 11:28:36 AM EDT [facility] Name Value Range Interpretation Code Description Data Jolene rce(s) Supporting Document(s) Progress Note [facility] KIXFXy2hWvZNYbAq70/HBXdlGCOmr4OvTXhjKZz5ORoxNCAhS2YpZGM9jW4sWSZ6ETrXHaHfShGgHKU2 lbm [file] QogoLWP7JWEhKIOsLs8oQFCKHs9+AQmuyZVbnBphAFEZFwS9WxVNUfDyAH2XBNm= ID Date Data Source [id number] 06/02/2020 10:03:54 AM EDT [facility] Name Value Range Interpretation Code Description Data Jolene rce(s) Supporting Document(s) Progress Note [facility] DPMLPs3dNbVKWxYe45/APQowQOPtc4DuGLjwFWy2OKqxUILrI4MdSEO5nI2qJIP0VKvUAqXaWfBwNEC1 lbm [file] E+DQogICAgICAgICAgICAgICAgICAgICAgICAgICAgICAgICAgICAgICAgICAgICAgICAgICAgICAgIC AgICAgICAgICAgICAgICAgICAgICAgICAgICAgICAgICAgICAgICAgICAgDQogICAgICAgICAgICAgIC AgICAgICAgICAgICAgICAgICAgICAgICAgICAgICAg ICAgICAgICAgICAgICAgICAgICAgICAgICAgICAgICAgICAgICAgICAgICAgICAgICAgICAgDQogICAg ICAgICAgICAgICAgICAgICAgICAgICAgICAgICAgICAgICAgICAgICAgICAgICAgICAgICAgICAgICAg ICAgICAgICAgICAgICAgICAgICAgICAgICAgICAgIC AgICAgDQogICAgICAgICAgICAgICAgICAgICAgICAgICAgICAgICAgICAgICAgICAgICAgICAgICAgIC AgICAgICAgICAgICAgICAgICAgICAgICAgICAgICAgICAgICAgICAgICAgICAgDQogICAgICAgICAgIC AgICAgICAgICAgICAgICAgICAgICAgICAgICAgICAg ICAgICAgICAgICAgICAgICAgICAgICAgICAgICAgICAgICAgICAgICAgICAgICAgICAgICAgICAgDQog ICAgICAgICAgICAgICAgICAgICAgICAgICAgICAgICAgICAgICAgICAgICAgICAgICAgICAgICAgICAg ICAgICAgICAgICAgICAgICAgICAgICAgICAgICAgIC AgICAgICAgDQogICAgICAgICAgICAgICAgICAgICAgICAgICAgICAgICAgICAgICAgICAgICAgICAgIC AgICAgICAgICAgICAgICAgICAgICAgICAgICAgICAgICAgICAgICAgICAgICAgICAgDQogICAgICAgIC AgICAgICAgICAgICAgICAgICAgICAgICAgICAgICAg ICAgICAgICAgICAgICAgICAgICAgICAgICAgICAgICAgICAgICAgICAgICAgICAgICAgICAgICAgICAg DQogICAgICAgICAgICAgICAgICAgICAgICAgICAgICAgICAgICAgICAgICAgICAgICAgICAgICAgICAg ICAgICAgICAgICAgICAgICAgICAgICAgICAgICAgIC AgICAgICAgICAgDQogICAgICAgICAgICAgICAgICAgICAgICAgICAgICAgICAgICAgICAgICAgICAgIC QmEPYcEZPlRHFzCQPfIDUyOTFwUNZxLRXnQGFpLGLhAIEjGBVuXJGzDYTbVCIxPKViCRNmQSb5X1ceMX VuLAFxOL4yDQk2Ce0+FKwRNjRbLQT3drJzsV4GHA3q q0QyWWntXTLxx1BhNMu7TW8PMQMbUIveKY8BCQfwiq2ZGVFvVSMbhLIKz6pyBxHgQBU7XUPoSowwJX2J QHMfY2fffdEbHYRqALEESK8ENwYgQ7NslT67DFUXCo0+FQjenhHxZvfNBtD3WQEqf1MoFQt1II5RIECo Unegz2EdQMJcRVEHOGsgOU3MWKR4MXB4GFAiBk9GGD TbB650wnGsVC9GGt2PSrLcIX5hvk2CWAShXFZdWjlPGcp4AUrdAL6MeKBuCFcUfw1oxxLvqkGGg0Cbjl RzfHULg18mLYJmB5Lto5odbnovCb7jROWsJZRjTU3wTPBhNBPfTkZqDDYSVS5BYNZvKJUhfAQiCMPwIA DTFQ3HXIabNRA7JYTxluCcvGRkUXfpKE5SQHSjfqLv MTQgMCBSDQo+Li8BNK9yg3MyCRspSsOcJB1hba7TXHlCCzKwA7J7eTDcE7W9BYrjBl0LOWMvKZIzPTZw CSXGKTlvHJ6WHY7emaQ4VY3UzTQrGRYvGQStxMQzUEg8A57wdCFgKKniRV6SHYB+Beatrice+Il2JIWFwVHHe RIWhDkCjDXQNDxMlR3GsU2GGu4NmK9MhIW54jIvjwg RbTOucMA2IRR5zRQFyHFOMHT3JdVLadM3yssQvTPNtJYZMCpDwE38dzUYuJIHyYDTmDNNcFb8UXISuB7 RxdbEabXtnseYvBDSrIOSKOL5PIZkddrIrkALzrRihVN17uIotMN8SNn9CPcYeKC9koq6GjUArFx5IFU CzBa2MCDOlZXJyNMZyYOX6AOKzHdZiPRciEMWnCPHz PIC1LFIeKGWtBW7YWoWiSWDbGDA1DQroSCSuJXNuoc2HEWMxXVLyKbQ9ZWVwDFXsOPCjDHasAUAhSHNg TLT2BQNiSHFqDF4YEoYjSRJdMIG5EnduTTUjDIFuvo0ZJOByHBLmQOa8DjXaAVDrGONnWKdtMOEwPZOq INThXHQxRBKuAO7LTaNaVMEeYMAoVGvySTZpUSJmxv 4HYCVlZTJrFnT1OiWnARElFHIzCJjtRNHeHIS6NaR0NEEdIYSkOY9TWoJcOBZcJCI6PwmlQISlDUAcvp 0BAIYjKDNfDUJuJTPnHZJjFQBbPJzcHNYyNBI9WZA9XQVzEXDlQO5CTpEbNMLdODZ1JjUaXWMmGVKxaf 2XGFBcMUVdZvLjLyZpHXQjZUHyWCieKLEoYGO1Lim8 CREnKRAgGP7AKqCvWCcaZKYCDmi1DGkaR5v7WHHrQl4AC2Uqr8RuJDCbUUTVKIfrUW1fdzTdXJLxAu4S C2nDEpyoBIZiJ2ZgPTVsZzpfFSAuXnA8DtNjSLbeFrH1LZReYZ7pGPKuSTFjFVEqWOCfFfI9LBQ8JVTs MVGcGVZ0NrxoTKXeBuByUO6XBn2XUrZ4DTB6jAFnJm4WEaavIG5ROBDON4DDOb== ID Date Data Source [id number] 06/02/2020 08:52:25 AM EDT [facility] Name Value Range Interpretation Code Description Data Jolene rce(s) Supporting Document(s) Glucose [Mass/volume] in Capillary blood by Glucometer 213 mg/dL 70- 140 H [facility] ID Date Data Source [id number] 06/02/2020 08:32:47 AM EDT [facility] XR HUMERUS MIN 2 VIEWS [place] [id number] L RESULTInterpreted by:James Adams MDCLINICAL INDICATION: 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 Total fluoroscopy time was 0.26 minutes. 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 Please correlate with intraoperative fluoroscopy and operative report.This document has been electronically signed by Alex Lisa MD on 06/02/2020 8:30 AM Name Value Range Interpretation Code Description Data Jolene rce(s) Supporting Document(s) ID Date Data Source [id number] 06/02/2020 08:00:32 AM T [facility] Name Value Range Interpretation Code Description Data Jolene rce(s) Supporting Document(s) Progress Note [facility] JBSJMy0aJwCYYuMh17/ANUshVXQfs3MiORsyXAy9KZcjORAcD7JwECQ4eE5rWQM5ETnURqSwAdSaSKP1 lbm [file] ICAgICAgICAgICAgICAgICAgICAgICAgICAgICAgICAgICAgICAgICAgICANCiAgICAgICAgICAgICAg ICAgICAgICAgICAgICAgICAgICAgICAgICAgICAgIC AgICAgICAgICAgICAgICAgICAgICAgICAgICAgICAgICAgICAgICAgICAgICAgICAgICAgICANCiAgIC AgICAgICAgICAgICAgICAgICAgICAgICAgICAgICAgICAgICAgICAgICAgICAgICAgICAgICAgICAgIC AgICAgICAgICAgICAgICAgICAgICAgICAgICAgICAg ICAgICANCiAgICAgICAgICAgICAgICAgICAgICAgICAgICAgICAgICAgICAgICAgICAgICAgICAgICAg ICAgICAgICAgICAgICAgICAgICAgICAgICAgICAgICAgICAgICAgICAgICAgICANCiAgICAgICAgICAg ICAgICAgICAgICAgICAgICAgICAgICAgICAgICAgIC AgICAgICAgICAgICAgICAgICAgICAgICAgICAgICAgICAgICAgICAgICAgICAgICAgICAgICAgICANCi AgICAgICAgICAgICAgICAgICAgICAgICAgICAgICAgICAgICAgICAgICAgICAgICAgICAgICAgICAgIC AgICAgICAgICAgICAgICAgICAgICAgICAgICAgICAg ICAgICAgICANCiAgICAgICAgICAgICAgICAgICAgICAgICAgICAgICAgICAgICAgICAgICAgICAgICAg ICAgICAgICAgICAgICAgICAgICAgICAgICAgICAgICAgICAgICAgICAgICAgICAgICANCiAgICAgICAg ICAgICAgICAgICAgICAgICAgICAgICAgICAgICAgIC AgICAgICAgICAgICAgICAgICAgICAgICAgICAgICAgICAgICAgICAgICAgICAgICAgICAgICAgICAgIC ANCiAgICAgICAgICAgICAgICAgICAgICAgICAgICAgICAgICAgICAgICAgICAgICAgICAgICAgICAgIC AgICAgICAgICAgICAgICAgICAgICAgICAgICAgICAg ICAgICAgICAgICANCiAgICAgICAgICAgICAgICAgICAgICAgICAgICAgICAgICAgICAgICAgICAgICAg ICAgICAgICAgICAgICAgICAgICAgICAgICAgICAgICAgICAgICAgICAgICAgICAgICAgICANCjw/eHBh O3tioYGkzhE7W0rmLa7HRu8JVO5jl7VaBQUmDKruro XaDniSElSwXVJvOjbIArl6DBtvWB1CbDAyD4AxN7TuNMucTA6EQFZyHTUjbDKoUYAbSSPuLzJ9OQFkRB zlDQ9XiNMzZZmqCDDaUUDiCmDkAXOpME6QPQPpU265gyRoUl3WVs1KKdNsMP7gez3IUOvjYFVxZarGDd l7JFtcKM5CxMIrqXNxDTVwWNURUkQiA6gmo3KcRvZy ODUFUImbCP2Xj0AwtFDjIAc+Bv6IZT3pg0YgHMwbLXOsSN0dgy5BSExKBfTrP6BkaStuPPQgs5zxOTJv VO1hiCWhYMV2PLThP4yddlLIKZzbiyFmnWrhHKYsUDIdTUArLP6vRHWdLAL1MoJ4KJJDOY3MYGZgNGVt qFWyWSTfAGJFTG2MUKmeIFO6FKRmcoJjvRHrIIroBE 9QYXJlbnQgMTkgMCBSDQo+Kl5VHG7qx2FwUDsxNOKwIB2itd8SZUmJSxPoJ3E0sCJbX2P2BAhxTl0JKS OwTIDcZGmbPWXBSRziND0EZZ0nvjF6IA5QvDIcHJCvTPEhdSChSFq5L31hqXWxEFfnQK0GVDO+Beatrice+Pg 5AQABnMDCbURXxJxWdAYAOQdBgT5HtF8NSo4AjA0Pv AQ71kXnvioXjTHwoPD5ROU8oNAKmMGMAXD0McSAymH0drvOgPHUvABQWJoJnQ30bvGClGPYaSIG0UBId Ct1WXTQaJ8NmurHybPgdlvBuEFImZFNOER4BSNyhdiOfpNUfoWitKZ27hBgpGU7SKr2SVeCgYB0pvm9W zFGdQr7CMXVwZf2DKLBaOBIlQWDePIV0VSDiSeBgFB vbGPOtDQRtIDJ7KTNqSALfZQ4GXaOzTHZpTPwtDsYpQEZtDPSwev1WGVWeTLZmIXn0QvYdEGJgMNUnRX dsHJMfNBTnXCS3CTNxINFyFD9RZoVnTXSjLUClBwJlKNKtNOXdmi3QVUAxUGXhRlFoRUQeMZTzIJGaIH niSWWrXDB7SleyIHEuZRDbNC4LOpFnWXTuGZQ0GaXm RKOyIXJkzh4HQKNcBRJlZNzlBmEmMVDjJKAvRHfmASHzGKQ3JMN6HXLqESDgLQ6JOwPaOLIhARShQSCp LSSuKGFfqg2YHJElKPLdGhX6OVVoOBTnISGpWRezRPRnUSF3VKlwNUDiWRJvSI6OBlVgHNItSQy9HDvs VSCgPWRvby1XZFReKQAzNUTmZCPsHQFfSSJxFUkkOK PrTYD9DER8DKYqHQEzEO2ATcNiWFDhJAu4IQkdJXJxXYZetv5CXWSmSWPmKGHqDwHtIXCjCHTuFXqgCF LiVETfZSQ8FYAnBDIyVO1YEfWeUBRrUMP0MublUYBwVTErog8LAMApIYHbNJH4TdNeXIShVIBySFi0df YzfHBiFMk9FQ2VA2SswpHrErXKGe3Db948ROFfVDZu Nc5RS8znUt1tBNLgKZZRUp3PMWb5PCZ4JjQsDdCjMaCfKoTcTKU9DsTtMgT9NXCdJdS8ZoX+PRv1JsFy CdCfSHU3APNcNTKyCRO9D9XhHrEjSLGsAhGpXU9kRIJQSg5+DQpzdGFydHhyZWYNCjExMzMxDQolJUVP Rg0K ID Date Data Source [id number] 06/02/2020 08:00:02 AM EDT [facility] Name Value Range Interpretation Code Description Data Jolene rce(s) Supporting Document(s) Operative Note [facility] JRKPCr0eSgYYGxHp13/VCTexKCYhg5UgHKrnLKr4AQgqOOHlS8DsLMO9jW4mIJA2DZdNGzLtKxXsKBW3 lbm LvKgwUTyUnALKvYawAMfHgZUooVvvvlYWsWW2GbWH7HADnB33sYZVkVXBkX0OpDZP9ZAU+Sp4TWOAxeV NdAJ7EAaqU5L6gVwX8Pe5/5g0KU7gvrWzWzM8+moisUMwBlXpde5MSwYLGAAyTnIUPUr81mdtIPtD184 lDJ8rHOe6Ahs7HaynLkVFL/u//WvuOIW1Ip//zXyOj xOWd+OE/ozyb6OzD8BnxUJJmQ/quaNX5h5C/3TAJR0zIcgvlpb9HWtug7qKBR5TYNT/0vwiA0Z8fqJ+n M+lwkA+ciJca3sSMVjh6dZcu7nq7+TEbBmE+HhENsFoyeFtAC7CNUTSVfdVU6uJvfARI5lLMAfOQKa32 HPLxiXSKJckCVhJLSwfvcKoxW3c69Mxe33EL1QV+nC vB+jI7DI2VVeouDNQePhSEKgSR8tkfHOmPRoFiMaLe7CNI6L4EnYVBYhpqg6g3DlbbAMDJZhcTivyTsP vpABEKOgjbFpz7HemGalx+UPkgi7W0dk1QPJD96tRf3KL1iAr0GevgeuWI4YbwhqODYqdJLZLW0Ea7Qz kY+bJtv4gWgaswJKI+n4nuvcxMb6nP2fYlGL+4E1EB prLN0oGWwyqtNxnrbvU6kVsiuK8VPfEHOnTsY2dLAHxmgma54bPzt/hSQAHFbWaQh8tn3QSLTEVOFtWd JFftYU8vtgc0gmOj0XlMv4/eHGW3mkYTw55w6bV/TOq/C9vffJbw8C2FuYgurYhuBKOxCUT1yJvZt+O7 qVHZEqOa0DtIzX2xnq2DVkpnPMDhk/q6o6WQqMYjbs 6p0WV3daKdYmcg7yWtHCJbg0GmJ65EvQQ0gquuHJ9Jb/zjUDQeoQLGnKLe3r1Ocb0g7U7J4xoW0e9p3A CaiB9F/0C4WXpag6TInz/rG15gmTH5hnZeE5wCyaFSTc+TmlTxgK2bk6AaaQ4oay20BCtRS3Xve5v/Stanley 3il6KqeJImVzwWapqvai6TMO1tKdGAfF8xOvgIDgOg DNWyB3dEGgmjJ9+N1PiSqP5zOThR6NnTjIhloPPNPJ8YQCVzDOpKhyeV6VWrqLQ6BaiNRZnrbp+swvbo cI+yshWxapGkqOVmKwdHsUGX9n9EUvrqTt5yQmNKVno7S3x0bC93mdvWVbmnqqSyEE2mStKNCRI/gDKN Dn90jFf4qavDjSCxn158FcLzLHwoLGgPuATohC656o c66NQ9yyUfJSIdXGXIDEV1P3F7Y+f8KDKrf7FkDRVjYOr1f9C3uNJUrUDcfqk/VlHeckK0GboUsL+eH2 4tjcoAKfUv7r2TLvJNWQ0lCmDwuLBv3NyIOydfGbjMyMhcNWeUaq/Ejls/XkT0nFLT9wGSgYK/ur2FMz j6PG0xvd3555bf14h0ciYj1c17LS77bIjbjIyQBzf0 [file] mIIjLf8MLGTiBcgDZrSrVZ7TLSr= ID Date Data Source [id number] 06/02/2020 07:59:42 AM EDT [facility] Name Value Range Interpretation Code Description Data Jolene e(s) Supporting Document(s) Discharge Summary [facility] SNGXDp9cPzZXJoIg96/WWMqcHSUur8GqLFzmRJw2SUzyHXRdM3NsJPW4hO1jSRJ0BHsIGmSdLwIzCIR2 lbm QnPfjGWeIwDNEkIafEEfJoZAcpIvwioLYeFY2YrSY9FDSxA05jCSGaNAUbB9PtHKM7NUg+Sr2VPWZvsL YeMQ2QGdrM8ZwcuxNM2e8f/EzSjmQLOJAM2k4r8jkjwZY9mNAWEnD6rMQBNuyaWGLN9lyAZ8bQLY2Eqp KNYyBxfWq77qDcAgaqqzLqu6eZIUhonyQ/65+WI9jg th8lW1qFTjA1SySBHXPPoRMvFmhv+xh8wzTUNuy73JyExkpD0eLT9mfPjn0ONT3hlP0B+e4tCOhbvTnD RhUnGRaKaBQKERlhEJ66BQu/SeAwtlXVmApjDNpIcUwDLXQwMYOQrBXyDPzTubRc9MmsfnwrobCp2AAD UASRMDBECwSsFx56/DCKBG91L4tGeHguxF0DsHQNWs [file] AgICAgICAgICAgICAgICAgICAgICAgICAgICAgICAgICAgICAgICAgICAgICAgICAgICAgICAgICAgIC BcDMCbVSIfTPAgRPSjMIDnUXBcRRShYP1ZGZPaRACpRSOaDDBmNUYjGZUbSMFkJGEtYCPrWKTpUAWvNR AgICAgICAgICAgICAgICAgICAgICAgICAgICAgICAg XJFlHSWqEFLoVLRvSMOwZRYyPFIsJRLnCSToQLDuESWlVH2NWNPrHEDjYTMuZWJhCBQpPYRrUEViWQPm ICAgICAgICAgICAgICAgICAgICAgICAgICAgICAgICAgICAgICAgICAgICAgICAgICAgICAgICAgICAg QUZeHVEwHTBwZZOvBZAuEE8RAIOpVUGkWNBnUCHwHF AgICAgICAgICAgICAgICAgICAgICAgICAgICAgICAgICAgICAgICAgICAgICAgICAgICAgICAgICAgIC TbIZGfYRShURHiDQGlFKTmOGJnTBSuXRVpHD3AIWSqQGMfZZRiFKQjRMCiUCEfFDNwDOXoSRSoQHSdNX AgICAgICAgICAgICAgICAgICAgICAgICAgICAgICAg XGOjLHFaQCSgTPNgKRYsOWXwDQWjAMStGDEfARDnJWXjPHQwUB2LUVJqESIhMQFaTMMtKAAqFDKeRMEt ICAgICAgICAgICAgICAgICAgICAgICAgICAgICAgICAgICAgICAgICAgICAgICAgICAgICAgICAgICAg ZBQiWIIdBFGgCCQkUZWoQFCkEB1RRMSeUFPmFVBjDL AgICAgICAgICAgICAgICAgICAgICAgICAgICAgICAgICAgICAgICAgICAgICAgICAgICAgICAgICAgIC YuLELnGWSwTYUoPHIhBLVtUUQzDJRwNIQsKLZwKK3HDCFtCGArEVGdBZHqKHBrSOEpXIVfZOXzQURcTN AgICAgICAgICAgICAgICAgICAgICAgICAgICAgICAg TLHfKZDpJIAsQUGvJTViCHKkSEKmYEBaRYPvFJVhLFYwFPKfCKBbQL5JQBFkNPQlSANeWPWlCFGoPYOi ICAgICAgICAgICAgICAgICAgICAgICAgICAgICAgICAgICAgICAgICAgICAgICAgICAgICAgICAgICAg INIvPNQtLSLyVKBvHGFlLLCbUZJvTI5EINAzUGYmXS AgICAgICAgICAgICAgICAgICAgICAgICAgICAgICAgICAgICAgICAgICAgICAgICAgICAgICAgICAgIC VvSIOdZJGlHMNmFZFlQWJpVEGwBBIsKNBgEJIpBNMgWN8PQT30bFQzk3J8SLXsSL3ncov/Db6QLQgjpu VqxKQyKO8FGuFwOX4hkm6UVpBeRW0xem1RGEvMMmMm H8U3bEJpVEEeIAKDRaVlZ01jEIadJd73WEfbQFVeOlRnGDf9Yh7DIxQlW3mwWTQjOuY2OZBjRcV8JHNn BnI4UYZpUuVxTIQnOFXrBB5SLRGpI125swQqID9PGw1RQwSpAT0uwr4HWbidNVOaPpfMPfu5PZswMA9J pYLvtOTzUCLcRZZFGqQvK1ggl4SuOshoHNWCNVblEL 5Vt2EvpIUaQBy+Gw4AER3ou4NqFYkeNKSyUV7fem2UVGaVHiUeU8CnvAfxMQMqw3XnBSXmCXJNeC8pQP M2VEQ9UFDuL1cacfKKLXlssvDogUxkTSAiJBCqHOJpMG4eXDIsDLR2RoXgVIELWC9EKXKkPLGheCAeXY SySOZVAA7YLJcsSOD4EIJdzhNtgPZmTQejWM5FHTQy bnQgMjggMCBSDQo+Jv1SOM7sh9DyNXoxZOUyZU7rvo3XEScCNiYeN1S5tKXnQ0P7QEzyCw5LHXVlTPPq TfXtVQJNPSyzWK6YFH8tqoS9QJ2CkELnIOTnFVEymBKgMMc0R74qdAIaPFaeVA8VKTO+Beatrice+Op3TDGIq ABLdIZZdLiEfXCHUNxCqA2AxK7HNf1UxX0NeAD77uZ ubplErYKxsHB9LVL2pHMWtIAFSTA1FnFJbcW1pgmDfZXFrGKCYOdNoT40dnDQqQCYsTIM3DSDhIr1UDA ZjG0ZjfoLspEoessUfJAMkDPTLWM0ITHskrdBeyYPvwIdtJV00bRtfZM9ESx1TDiZhZG0abe3RjLWpSf 1QDBKgLF3YBSOtWCGhITThUNC5QFMnMdKiCRrqAISd ISTsVQZ1NXTbUBMsDG0HYgRcQPYeHEy8LVSxKUBhSVYfpx8QCWYjRNCfTRH1BPJeYJNjHBYrVIknONAe VZVmCFU0YNZdBUOmZY4QYgJuEKOjATWqKgKbKZEjQWJjbo8KBMMnZJBvXsKdTPQgLVKrGKFqSAdeGRIs AYC1RAWtFKZlITJySJ8NOfXnBGUfASU8DDFhJISfGA Qzir2RQBGsMQBpEwv6TpNxPGTdLLKiEZxkOFSxLDJ8VCW0JDWnVREcQW3EDsDzBQXiDZj5UjWgIKZiOI Qmrt0JVCAbLGDnBANkPGKeZGRtLBUbSLjuPMFkEFI4UNjrJZTfKCUdZH4TYvSwOLGkQBPjCWqnGCFwWW Pxff0GZFDcVBAtMEH5MFTgFLWrCUNeNLltEGZwAVBn AtMaECIaQEDmCO2QHwNdRBWfAZN5FuZlSDJxPOPtnm7FICHvDUJjERzpJDKnFHYbVQVwMNzzNCWhMSGn NgaeJMJlWZSmMH1JDjSeMNJpHCO7DxusLJTcLDNvnr6WRKTgPCOsGxK4LNSyGPNzYTIoCLixRJSsTUC5 DMA8HBNlYFFrQV5HLwBnRTKdNEiaFlWuEXKhAKFvdy 7JIDDgDENeKJG0LVRkIBSsTGRbPUdpWVGlHJL2Hrn4VGNqZWQcSG7MWmBsNWUxZMf2OhYfBVRoQMPujp 6ZMHGsPQSdGIE5GBKrHTGsUHLaHKakDKQcYVIqTsP8PNEdLVRtNM7DVtXmJGQpIxI0MxplUHZpYVWeym 7OKKHvIKLtSIbyXXYfFHKtEXNfUHt8jpIorQCxCGc0 PZ0PU2ZpcuSxDqBBNj2Bk833EHRvESBmXu2BT4noSb1sPOCgRINIQx7TZPf0ScdlWsPfQJLiUNDpNPWk RWP9RLGdQSYnSTXcTJwyFGH+RVkzZPSqXQDbDqHvTFSnBoFiWKbxIFGqWKX9QjGbHGH0Sa0gSQBGYv4+ SCvjpCJxsPwiATOFRrJlPQk8AFbgBLGANn3L ID Date Data Source [id number] 06/01/2020 09:27:10 PM EDT [facility] Name Value Range Interpretation Code Description Data Jolene rce(s) Supporting Document(s) Progress Note [facility] FTUOZr4iUiZYQvDl20/QPJkiDCYux0HtZRxyYWp7CXsnKFOvB0RnSDC5tN7dRYE5OBfUEwPpUjUcTQP1 lbm [file] ICAgICAgICAgICAgICAgICAgICAgICAgICAgICAgICAgICAgICAgICAgICAgICAgICAgICANCiAgICAg ICAgICAgICAgICAgICAgICAgICAgICAgICAgICAgIC AgICAgICAgICAgICAgICAgICAgICAgICAgICAgICAgICAgICAgICAgICAgICAgICAgICAgICAgICAgIC AgICANCiAgICAgICAgICAgICAgICAgICAgICAgICAgICAgICAgICAgICAgICAgICAgICAgICAgICAgIC AgICAgICAgICAgICAgICAgICAgICAgICAgICAgICAg ICAgICAgICAgICAgICANCiAgICAgICAgICAgICAgICAgICAgICAgICAgICAgICAgICAgICAgICAgICAg ICAgICAgICAgICAgICAgICAgICAgICAgICAgICAgICAgICAgICAgICAgICAgICAgICAgICAgICANCiAg ICAgICAgICAgICAgICAgICAgICAgICAgICAgICAgIC AgICAgICAgICAgICAgICAgICAgICAgICAgICAgICAgICAgICAgICAgICAgICAgICAgICAgICAgICAgIC AgICAgICANCiAgICAgICAgICAgICAgICAgICAgICAgICAgICAgICAgICAgICAgICAgICAgICAgICAgIC AgICAgICAgICAgICAgICAgICAgICAgICAgICAgICAg ICAgICAgICAgICAgICAgICANCiAgICAgICAgICAgICAgICAgICAgICAgICAgICAgICAgICAgICAgICAg ICAgICAgICAgICAgICAgICAgICAgICAgICAgICAgICAgICAgICAgICAgICAgICAgICAgICAgICAgICAN CiAgICAgICAgICAgICAgICAgICAgICAgICAgICAgIC AgICAgICAgICAgICAgICAgICAgICAgICAgICAgICAgICAgICAgICAgICAgICAgICAgICAgICAgICAgIC AgICAgICAgICANCiAgICAgICAgICAgICAgICAgICAgICAgICAgICAgICAgICAgICAgICAgICAgICAgIC AgICAgICAgICAgICAgICAgICAgICAgICAgICAgICAg ICAgICAgICAgICAgICAgICAgICANCiAgICAgICAgICAgICAgICAgICAgICAgICAgICAgICAgICAgICAg ICAgICAgICAgICAgICAgICAgICAgICAgICAgICAgICAgICAgICAgICAgICAgICAgICAgICAgICAgICAg ICANCjw/cTNlT8wdiLKfeeD6X6juPv0RLh5PGA8mu5 YyUJKlHPvxujXaXneNOtKdKUInUupVOqu1WLvpSA3WgGCxE5RxB6EfZQvdPC7QWCDdRCIfwWFxTSBmDY FuVtV6FAPoXAavXV2DwLPxXAtyWSWkUOSdKI8BFTSeF596rjBnHI2FNq5LGuRxSM5orb9NTQUuMHRwQy xCAsp2BXcbLW1McYLbqEPlHJEeDJLGEiCnH5siv5We ZIAxONGCQHzgDB3Cq9NvfSDwSNx+Sz2HFI7pw6PxXNkfYFPzBF5trn6HOBmUFyAwM2TxsHnqWWNqj8ks IMOaRF5doLIzJCQ9YWRslxjepB7tlAYsJXdoMc6qvwItulpxVOIbMJOdGJThSR9mBRHfJZM7OeXkUMPN NR3RJAYiQBYccZVfBTKeLIHUMP0CHUdcPCD7FXJywg AelUEjWChnYB4TQMHrhmTrREJgRTIDFRy+Yp0GTX8up8QpKKacOmGmTQ9ggs7PUUaDKmApS7S9sAVjM8 S6HGucOe8IRGWrWCNtCGEwYBMMRObyBC9NFN1zatG6CY1KzCMbVQRjPIUcjTSrPYc2H34rvNFmTBdyWX 0KICA+Beatrice+Tg8TWLHtKTEyKYLgEqHrHADNEaCqH3Ha P0GSz2XkZ4TbMK90jIsratCxMNvpRY3RLZ2xVFAnSTMUSM7WnOHgoE8gzrDiZMYdPNGLYyOqF96mxFMc PYClAQPrEEAtXj7OUOCeW9ZsanYqqQnonbYcGEDhRFMFQM9XMJfqfwKcuBUapTlgKP09lDcsYE6KGf2Y GwWqJQ9etb7DbPUmFi8WIKOgAa8LXXVmWZLcYYEoHE U8KBJoHhTkBBhmSLXbQUGmMYB9SINbVWNkBE0ISgSwXRWgFUWwBsEmXVLmBGHzts7SNAHcDYCkRaa3CR RvCLDgCFWeHVhcIQLnSDXuLCB4NUGoVZMoJC7DGkNaOVPyUIOvYOOiNUChJQIrgc2GMUJnKSQyRaKlAI OsKOLbTOBbZFinHZSeGPE2Gzn8PNKoTHBzWI0PFoKd PWUkXSJ5ZfKxKCTgQCIbih7WEHKpWOLgYZR8UPEbCSOwECLuNQisETFnPIO4IvP4YQAgPNRvVC4BUdTt NBDrWVN2UNZwBGEgHPExnd8YOCOtNBVvOYv2LvGxYRQuMPYmDLifUNJrNFJ6HIRoJZDuPTFrVO9WIbGm VERfFCi5XdygHGPtTDMzaw9ZWRDmFGAoNzsnMLNkTG HyCGFvEUzbYHNnVUU4YTR1AOLeSVEvMM3ABxEcAUiqGZQXIda3ZTapK7w6GIMkEn5EG7Uwr3ZtHPMwWE JUUWprLF7nneRlPWSlXl5PB1qYPad9GGTsZUzbQCfxCsF8DDX6Q1DiRdS4DRK3GRk2IxUdLQ7mSBAuWk Q2TWUlN8BpJZb3BxMbK4MnRfBkETl1SBeoPTXvCfZw UE5JKj4XTnE8SVW0yZTaNl0WWLRpMS4XPALGW9RUPi== ID Date Data Source [id number] 06/01/2020 08:55:19 PM EDT [facility] Value Range Interpretation Code Description Data Jolene rce(s) Supporting Document(s) Glucose [Mass/volume] in Capillary blood by Glucometer 166 mg/dL 70- 140 H [facility] ID Date Data Source [id number] 06/01/2020 05:10:48 PM EDT [facility] Value Range Interpretation Code Description Data Jolene rce(s) Supporting Document(s) ABO and Rh group [Type] in Blood [facility] Blood bank comment [facility] ID Date Data Source [id number] 06/01/2020 05:32:47 PM EDT [facility] Value Range Interpretation Code Description Data Jolene rce(s) Supporting Document(s) ABO and Rh group [Type] in [facility] Blood group antibody screen [Presence] in Serum or Plasma [facility] Blood bank comment [facility] ID Date Data Source [id number] 05/31/2020 06:31:10 PM EDT [facility] Value Range Interpretation Code Description Data Jolene rce(s) Supporting Document(s) History and Physical [facility] BOODBw1eQeTDAcIg30/JJEcnQLCnq1FeHNydSHh2JMkxIDJdJ2JnFVN1cG4eOBJ8YWpYRuOrExYsBSE5 lbm [file] ICAgICAgICAgICAgICAgICAgICAgICAgICAgICAgICAgICAgICAgICAgICAgICAgICAgICAgICAgICAg OWTvJCOvCHFyTJSoLLMgHEScNXFlZCDsGH6CFBXtSP AgICAgICAgICAgICAgICAgICAgICAgICAgICAgICAgICAgICAgICAgICAgICAgICAgICAgICAgICAgIC DyYXNtXPPkOKFjLNEfOTLjSKNcNZJcVFUoWIQkIDJrQJFuYD9JIJFgEOVjZILcXCTjEQZtQYZgCELzEV AgICAgICAgICAgICAgICAgICAgICAgICAgICAgICAg RLNeYTVmSYEvVFFqABDtEIRhUQKzCTNyZCCxZOBwPBOqJAXuJXCiKSSuHVSaPC6XBSAmLDQxKYTiOKMn ICAgICAgICAgICAgICAgICAgICAgICAgICAgICAgICAgICAgICAgICAgICAgICAgICAgICAgICAgICAg FDMfJRBjCHSeNYYdTSRzXKHbTASrKPOvNTRhCT5YKF AgICAgICAgICAgICAgICAgICAgICAgICAgICAgICAgICAgICAgICAgICAgICAgICAgICAgICAgICAgIC RwZXObIBCcOSXkFYXzAIGqCREmSVBoIMFkQVEbBXIpEBAbTNOkQD3ADJWwCILcHXKzKGJnURGiRYQxOR AgICAgICAgICAgICAgICAgICAgICAgICAgICAgICAg GFUdUACyXCXqFEPwNGIgYVCaPOCkOPZvEVKfSOGzUPQwOAVlABLfUSSbNHXjWUSiLW1TAEXlEYLpTCUw ICAgICAgICAgICAgICAgICAgICAgICAgICAgICAgICAgICAgICAgICAgICAgICAgICAgICAgICAgICAg ICAgICAgICAgICAgICAgICAgICAgICAgICAgICAgIA 0KICAgICAgICAgICAgICAgICAgICAgICAgICAgICAgICAgICAgICAgICAgICAgICAgICAgICAgICAgIC KuXEHyJCIxKUMzNOVcUPZrWRQdOTXzCASqRIXvIXOxXYVeJTCoOYYxNN5LKSFsTIPnAHQtOYIxQZSuUA AgICAgICAgICAgICAgICAgICAgICAgICAgICAgICAg KCHlZFVeBWKoBYGeVULkEWUpJVQyKBAnKNShVZMyIYRvKFGbKGJeMISnIMDpAWZbQCXiDV4XBBUdHZZi ICAgICAgICAgICAgICAgICAgICAgICAgICAgICAgICAgICAgICAgICAgICAgICAgICAgICAgICAgICAg ICAgICAgICAgICAgICAgICAgICAgICAgICAgICAgIC FaKK0PGB36iYZfs7J7WLGvBI6pehn/Iv0YNPqjopXipDEcSJ2IDbCbLE8zok6UEsTiJS0npv7LFLpELs XqU1H2vUOwXHArNFAMXfWxE97lSDfzKl07WIldJUDcNqAlJHy1Cv1QTqUqB1qhBZCgTrM9CHRmJnI5AZ NgYlQ3THRpTkCnSYKeRRCxRT8RPIIkX847jiPtVP4Z Ld6ZRiOcNG7gma2DAufhXCQbAzfEQci9WGvvOQ5RaPSraMOuCTPmYCUFFaLdD0gfl0ZlYtruDENFSRjh WF1Ty1OzxRElGSm+Pg5BAS2jt1UfKMwtMPMlUY2bep1XNNhMLaEpK0YpoVnmLUyhSOBntJTKqnvsyxSD CJrimijjvXrcXUJiSDVaBQUfPp4qNQWfHOQ7KaN3HP VIFI3WMSHyOAPegYIpQWTjOFQTFN1BTXmqUHJ1OFXrouYxgMVjTDidWI1NBVIkmgEnNuegYMGEMEl+Pg 8SUG7jt0OqZRucWYSxSP6tgk3HQSsPVmYqA7N1sBCgY8D7MRtwFf0RFYZmBINjWqKeHDSDFDxqGB6BQG 5bdlY3DE2RrAKmXMCkYYSdaCNzRIf7K97obTDkXSdo JE6FFYG+Beatrice+Bk4UPJLeZQRxLWCrPdIbBSZTJqXhH7EsP4BDl3DtF6JrGA91nBzmufNbZWnbNJ4MGD0q ZKYwCIKPHI8KmSQihR9lgpOeTMDjFBGAKdXtK37sjCBpVSXuHXW4LKDfVn5ZDRLeG2AbumWhrGoswzNa UUIuJWEGQH7MLYqhzxFwrROhtWwaUP07kHfiZK7EUd 3TDyDcTY5lxz1AfTIiVd7SCKEeJA5OPIXgFMCyWNEfGJJ9BQDdIuUfDOadKHWgHZOnESN9UBTlRYPoHY 6SJiZnAXGgCoH9GMUlLHMhIOBunp5YLUZoOETsBSD6LFTwYQBgHIUeNAxvOKRzQMXiZIV0YCWoDSBtGU 9VNlVsIJAlGSI0GFMmGSYuMIYiyq7DXNEhHCRpAcn7 NlZgVBOlKJVjHRdwCQCfOSG7ALN9AOCgFVReUV8LHeHzJLPoTTRdKQPzEDJmEESrmq8YINEyKBKwOAU7 HGIjLAUvNSHbHMngMXSbZJY2JOZ3RDZkPCNpRY9HTdLrQFOcCWI3FlNiVGLuQEShvx4YMAVwIFSdGKDf InPnLPIxDNPrGUsvSHBcUSYxQLi5XONsDTCpFT5PWu QcFLPvIBH1OLIjDGQxUXAmwm9LYIZpYOHjBWv3AqTzSRIlZOEqUNtlJHJiXVAuREK1FCWyDPKrMY8FHm WyAHLbZSGxLrgqSWSaHGCyjh7LYKKyCPDqYxZmCyHkKFSkQLMuENegKJIoTEW3XiDsXOOyETZwOS5WUo RlGTNzEiZjOUadMJZdQUOeba8UHXFoBRQbAJWoEIWx DVMjTLEmLGllVQMsUNO8MXG6TCJsGTIgAP5YRlMjIQPnDbJ7YAFlEMNiMIUrcl9QJEAgYKRcWtY4ZzAa VDEhGWQcVVqkHXWqOUN6UfG9SGHkGLPhXM0SBlAnGUKtXkC7FkSpEAEdASDsvz4MEYHbGMMuRnP2PSSs KRIaHQImRDvkEAEzTFT2Mew1KHKpMUJwZY7UAxGyOD UsCvt5VjmcMFYvIRJsuf5SNANuGPGoNPVySdHeXTYlSCRgMXi6auMkjBTaJTb0KT7XZ6KezkWvOvLRHg 0Fy737JFAyYGBfDm0JK5ygTt9vLWIrZFFNFz8SQUq8FVniMlJ1ZQB1N1OdHJEaHhRiXwJ5LyAbXUm4IW hiNmM+HDe9PJS6IltnHiuyHOFyKcGuMPSmJdL8OwRp QnWoJBM4Bc6qUCWDBp1+CJivjEQtxWoiHYPZLjN5CrTjNAfnULFZTr2N ID Date Data Source [id number] 05/30/2020 11:08:09 AM EDT [facility] Name Value Range Interpretation Code Description Data Jolene rce(s) Supporting Document(s) Progress Note [facility] YWVIDa0aYnJRRrOn66/HTUnyOIJpp9UtHTgmJDe3NWslEWLrU3IpZPS2lY9qZQI3ZKsFBfGnLdClDVJ6 lbm [file] AgICAgICAgICAgICAgICAgICAgICAgICAgICAgICAg ICAgICAgICAgICAgICAgICAgICAgICAgICAgICAgICAgICAgDQogICAgICAgICAgICAgICAgICAgICAg ICAgICAgICAgICAgICAgICAgICAgICAgICAgICAgICAgICAgICAgICAgICAgICAgICAgICAgICAgICAg ICAgICAgICAgICAgICAgICAgDQogICAgICAgICAgIC AgICAgICAgICAgICAgICAgICAgICAgICAgICAgICAgICAgICAgICAgICAgICAgICAgICAgICAgICAgIC AgICAgICAgICAgICAgICAgICAgICAgICAgICAgDQogICAgICAgICAgICAgICAgICAgICAgICAgICAgIC AgICAgICAgICAgICAgICAgICAgICAgICAgICAgICAg ICAgICAgICAgICAgICAgICAgICAgICAgICAgICAgICAgICAgICAgDQogICAgICAgICAgICAgICAgICAg ICAgICAgICAgICAgICAgICAgICAgICAgICAgICAgICAgICAgICAgICAgICAgICAgICAgICAgICAgICAg ICAgICAgICAgICAgICAgICAgICAgDQogICAgICAgIC AgICAgICAgICAgICAgICAgICAgICAgICAgICAgICAgICAgICAgICAgICAgICAgICAgICAgICAgICAgIC AgICAgICAgICAgICAgICAgICAgICAgICAgICAgICAgDQogICAgICAgICAgICAgICAgICAgICAgICAgIC AgICAgICAgICAgICAgICAgICAgICAgICAgICAgICAg ICAgICAgICAgICAgICAgICAgICAgICAgICAgICAgICAgICAgICAgICAgDQogICAgICAgICAgICAgICAg ICAgICAgICAgICAgICAgICAgICAgICAgICAgICAgICAgICAgICAgICAgICAgICAgICAgICAgICAgICAg ICAgICAgICAgICAgICAgICAgICAgICAgDQogICAgIC AgICAgICAgICAgICAgICAgICAgICAgICAgICAgICAgICAgICAgICAgICAgICAgICAgICAgICAgICAgIC AgICAgICAgICAgICAgICAgICAgICAgICAgICAgICAgICAgDQogICAgICAgICAgICAgICAgICAgICAgIC AgICAgICAgICAgICAgICAgICAgICAgICAgICAgICAg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 R.N.NURSING PROGRESS NOTES Reassessment acuity: LEVEL 3. The patient reports no complaints, he is calm and resting quietly and he has had no adverse reaction. GENERAL / NEURO / PSYCH: The patient reports pain that is located in the left upper arm. Alert. Oriented X 4. RESPIRATORY: No respiratory distress. CVS: Capillary refill less than 2 seconds. EXTREMITIES: Neuro-vascular status intact to the extremity. SKIN: Skin is warm and dry. Patient transported to radiology by wheelchair. Two patient identifiers checked. Call light placed in reach. Side rails up x 2. Bed placed in lowest position. Brakes of bed on. --21:19 05/15/20 Xander Tyson R.N.DISPOSITION / DISCHARGE 22:20 05/15/20. Condition at departure: improved. No learning barriers present. Discharge instructions provided and reviewed with the patient and family. Reviewed warnings. Reviewed medication(s). Treatments reviewed. Reviewed referrals. Written instructions provided in Yoruba. The patient was discharged by the physician. He was discharged home and accompanied by environmental management specialist. He left ambulatory and via private vehicle. [employer] driving. Patient has no belongings. --22:48 05/15/20 Xander Tyson R.N. 22:46 05/15/20. BP: 146/72. MAP: 96. HR: 70. RR: 16. O2 saturation: 99%. Temp: 98.5 F. Pain level now: 12/02. --22:48 05/15/20 Xander Tyson R.N. Departure time: 22:20 05/15/2020. --22:48 05/15/20 Xander Tyson R.N.Locked/Released at 05/15/2020 22:49 by Xander Tyson R.N. Name Value Range Interpretation Code Description Data Jolene rce(s) Supporting Document(s) ID Date Data Source [id number] 05/15/2020 08:59:00 PM EDT [facility] 1 Clinical Report - Physicians/Mid Levels [facility] Emergency Department [address] [place] [address] Phone #: ext- [phone] 05/15/2020 20:30 Patient: LISA CHANDLER Sex: M : 1950 Age: 69y Time Seen: 21:00 05/15/2020. Arrived- By private vehicle. Historian- patient.HISTORY OF PRESENT ILLNESS Chief Complaint: Injury to the left arm and the left shoulder. The injury happened today swelling for 2-3 days. The patient sustained a direct blow. Occurred at home. ( pt bumped his arm today). Patient is experiencing mild pain. No injury to the head or neck or other injury.REVIEW OF SYSTEMSThe patient has had swelling,, tingling, and numbness. No weakness, suspected foreign body or skinlaceration.PAST HISTORYMedications:Ferrous Sulfate Oral (Tablet 325 (65 Fe) mg) 1 tablet, daily. Fish Oil Oral, daily at bedtime. HumaLOG Subcutaneous sliding scale. HydrALAZINE HCl Oral (Tablet 50 mg), 3x a day. Lantus SoloStar Subcutaneous 35 units, daily. Levothyroxine Sodium Oral 50 mcg, daily. Magnesium Oral (Capsule 400 mg) 1 capsule, daily at bedtime. Ondanse tunde HCl Oral (Tablet 8 mg), as needed. Probiotic Oral 5 g, daily. Protonix Oral (Tablet Delayed Release 40 mg), 2x a day. Simvastatin Oral 40 mg, daily at bedtime. Spironolactone Oral (Tablet 25 mg) 1/2 tablet, daily every AM. Uloric Oral (Tablet 80 mg) 1 tablet, daily. Venlafaxine HCl Oral 37.5 mg, daily. Vitamin D Oral [address]300[address], once a week. Xalatan Ophthalmic, daily at bedtime. Aspirin Oral (Tablet 325 mg) 1 tablet, daily. Baclofen Oral 10 mg, daily at bedtime. Bumex Oral 1 mg, daily, IF GAIN 4 LBS. Calcium 500 Oral, daily. Carvedilol Phosphate ER Oral 12.5 mg, 2x a day. Centravites Oral, daily.All ergies:Allopurinol. 2 Clinical Report - Physicians/Mid Levels [facility] Emergency Department [address] [place] [address] Phone #: ext- [phone] 05/15/2020 20:30 Patient: LISA CHANDLER Sex: M : 1950 Age: 69y Bactrim. Clindamycin. Compazine. Sulfa Antibiotics. Trulicity.SOCIAL HISTORYNever smoker. No alcohol use or drug use.PHYSICAL EXAMVital Signs: 05/15/2020 20:50 BP: 146/70. MAP: 95. HR: 69. RR: 16. O2 saturation: 98%. Temp: 98.5 F.Pain level now: 11/01. Have been reviewed as normal. Hypertensive. Oxygen saturation normal.Appearance: Alert. Oriented X3. No acute distress.Head: Head atraumatic.Eyes: Pupils equal, round and reactive to light. Eyes normal inspection.ENT: Ears normal. Nose normal. Pharynx normal.Neck: Normal inspection.CVS: Normal heart rate and rhythm. Heart sounds normal.Respiratory: No respiratory distress.Abdomen: No visible injury.Back: Normal inspection.Skin: Skin intact. Skin warm and dry. Normal skin color. Normal skin turgor.Extremities: Left arm: deformity and mild swelling located in the anterior, posterior and medial aspect ofupper and lower arm. Neurovascular intact distally. (shoulder/ humerus brace intact). Not localized to thelateral aspect of arm. Extremities otherwise negative.Neuro, Vascular and Tendons: Vas cular status intact. Sensation intact. Motor intact. Tendon functionintact.Neuro: Oriented X 3.LABS, X-RAYS, AND EKGLt Shoulder X-ray: Fracture of the left humerus. Views: AP with external rotation, AP with internalrotation and axillary. The X-rays were interpreted by the radiologist and contemporaneously by me.Interpretation time: 21:42 05/15/2020.Lt Humerus X- ray: Moderately displaced, angulated, transverse fracture of the mid left humerus. No openleft humerus fracture. Views: AP and lateral. The X-rays were interpreted by the radiologist andcontemporaneously by me. Interpretation time: 21:41 05/15/2020.PROGRESS AND PROCEDURESCourse of Care: 21:42 May 15 2020. Evaluation after observation. (pt has previous humerus fx with ORIFand now new fx 04/24, pt needs to follow up with Orthopedics tomorrow to have brace adjusted, pt doeshave dependent edema in left forearm and hand but cap refill 2+, sensation intact, and radial pulse isintact.). Patient and daughter counseled in person regarding the patient's stable condition, test results, diagnosis 3 Clinical Report - Physicians/[facility] Emergency Department [address] [place] [address] Phone #: ext- [phone] 05/15/2020 20:30 Patient: LISA CHANDLER Sex: M : 1950 Age: 69y and need for follow-up. Patient and daughter agrees with plan of care. 21:44 May 15 2020. Disposition: Discharged home in good and improved condition (21:44 May 15 2020).CLINICAL IMPRESSION Closed displaced and moderately angulated transverse fracture of the shaft of the left humerus.INSTRUCTIONS (Continue wearing brace until see by Orthopedics tomorrow.). Your Current Medications: Your current home medications have been reviewed. CONTINUE TAKING THE FOLLOWING MEDICATIONS: Aspirin Oral : Tablet 325 mg, 1 tablet daily. Baclofen Oral : 10 mg daily, at bedtime. Bumex Oral : 1 mg daily, IF GAIN 4 LBS. Calcium 500 Oral : daily. Carvedilol Phosphate ER Oral : 12.5 mg 2x a day. Centravites Oral : daily. Ferrous Sulfate Oral : Tablet 325 (65 Fe) mg, 1 tablet daily. Fish Oil Oral : daily, at bedtime. HumaLOG Subcutaneous : sliding scale. HydrALAZINE HCl Oral : Tablet 50 mg, 3x a day. Lantus SoloStar Subcutaneous : 35 units daily. Levothyroxine Sodium Oral : 50 mcg daily. Magnesium Oral : Capsule 400 mg, 1 capsule daily, at bedtime. Ondansetron HCl Oral : Tablet 8 mg, prn. Probiotic Oral : 5 g daily. Protonix Oral : Tablet Delayed Release 40 mg, 2x a day. Simvastatin Oral : 40 mg daily, at bedtime. Spironolactone Oral : Tablet 25 mg, 1/2 tablet daily, every AM. Uloric Oral : Tablet 80 mg, 1 tablet daily. Venlafaxine HCl Oral : 37.5 mg daily. Vitamin D Oral : 44787 once a week. Xalatan Ophthalmic : daily, at bedtime. Understanding of the discharge instructions verbalized by patient and family. Follow-up with: [facility], , , [address] [place] [address], [phone] Follow up tomorrow. Call for an appointment. Reason for referral: evaluation and treatment. Summary of 4 Clinical Report - Physicians/Mid Levels [facility] Emergency Department [address] [place] [address] Phone #: ext- [phone] 05/15/2020 20:30 Patient: LISA CHANDLER Sex: M : 1950 Age: 69y care provided to patient and family.(Electronically signed by YAA Romero 05/15/2020 22:01) Name Value Range Interpretation Code Description Data Jolene rce(s) Supporting Document(s) Procedure Social History Code Duration Value Status Description Data Source(s ) Smoking 03/22/2021 12:00:00 AM EDT Never Smoked A Pipe complet ed Never Smoked A Pipe [facility] ([facility]) Alcohol intake 10/10/2020 12:00:00 AM EST Current non-d sanjiv of alcohol (finding) completed Current non-drinker of alcohol (finding) [facility] Tobacco use and exposure 10/10/2020 12:00:00 AM EST Never used co mpleted Never used [facility] Smoking 10/10/2020 12:00:00 AM EST Never smoker completed Never s moker [facility] Alcohol intake 08/08/2020 12:00:00 AM EST Current non-d sanjiv of alcohol (finding) completed Current non-drinker of alcohol (finding) [facility] Alcohol intake 07/11/2020 12:00:00 AM EST Current non-d sanjiv of alcohol (finding) completed Current non-drinker of alcohol (finding) [facility] Alcohol intake 06/16/2020 12:00:00 AM EDT Current non-d sanjiv of alcohol (finding) completed Current non-drinker of alcohol (finding) [facility] Alcohol intake 06/01/2020 12:00:00 AM EDT Current non-d sanjiv of alcohol (finding) completed Current non-drinker of alcohol (finding) [facility] Alcohol intake 05/26/2020 12:00:00 AM EDT Current non-d sanjiv of alcohol (finding) completed Current non-drinker of alcohol (finding) [facility] Alcohol intake 05/26/2020 12:00:00 AM EDT Current non-d sanjiv of alcohol (finding) completed Current non-drinker of alcohol (finding) [facility] Vital Signs ID Date Data Source UNK Name Value Range Interpretation Code Description Data Source(s) Diastolic blood pressure 54 mm[Hg] 54 mm[Hg] [facility] ([facility]) Systolic blood pressure 92 mm[Hg] 92 mm[Hg] [facility] Body temperature 98.2 [degF] 98.2 [degF] [facility] ([facility]) Body height 73 [in_i] 73 [in_i] [facility] ([facility]) 6'1" Body weight 235.50 [lb_av] 235.50 [lb_av] [facility] Body mass index (BMI) [Ratio] 31.1 kg/m2 31.1 k g/m2 [facility] ([facility]) [place] body weight 184 [lb_av] 184 [lb_av] [facility] Body weight 106.823 kg 106.823 kg [facility] Body surface area Derived from formula 2.31 m2 2.31 m2 [facility] ([facility]) Body mass index (BMI) [Ratio] 31.7 kg/m2 31.7 k g/m2 [facility] ([facility]) Body temperature 97.3 [degF] 97.3 [degF] [facility] ([facility]) Systolic blood pressure 104 mm[Hg] 104 mm[Hg] M [facility] ([facility]) Diastolic blood pressure 70 mm[Hg] 70 mm[Hg] [facility] ([facility]) Heart rate 114 /min 114 /min [facility] ([facility]) Oxygen saturation in Arterial blood by Pulse oximetry 98 % 98 % [facility] ([facility]) Body height 72 [in_i] 72 [in_i] [facility] ([facility]) 6'0" Body weight 234.00 [lb_av] 234.00 [lb_av] [facility] ([facility] Guerra [facility]) Body height 73 [in_i] 73 [in_i] [facility] ([facility]) 6'1" Body weight 232.00 [lb_av] 232.00 [lb_av] [facility] ([facility]) [place] body weight 184 [lb_av] 184 [lb_av] [facility] ([facility]) Body weight 105.235 kg 105.235 kg [facility] ([facility]) Body mass index (BMI) [Ratio] 30.6 kg/m2 30.6 k g/m2 [facility] [place] body weight 184 [lb_av] 184 [lb_av] [facility] ([facility]) Body weight 105.235 kg 105.235 kg [facility] ([facility]) Body surface area Derived from formula 2.29 m2 2.29 m2 [facility] ([facility]) Body surface area Derived from formula 2.29 m2 2.29 m2 [facility] ([facility]) Systolic blood pressure 137 mm[Hg] 137 mm[Hg] [facility] ([facility]) Diastolic blood pressure 95 mm[Hg] 95 mm[Hg] [facility] ([facility]) Body height 73 [in_i] 73 [in_i] [facility] ([facility]) 6'1" Body weight 232.00 [lb_av] 232.00 [lb_av] [facility] ([facility]) Body mass index (BMI) [Ratio] 30.6 kg/m2 30.6 k g/m2 [facility] ([facility]) Body height 73 [in_i] 73 [in_i] [facility] ([facility]) 6'1" Body weight 241.00 [lb_av] 241.00 [lb_av] [facility] ([facility]) Body mass index (BMI) [Ratio] 31.8 kg/m2 31.8 k g/m2 [facility] ([facility]) [place] body weight 184 [lb_av] 184 [lb_av] [facility] ([facility]) Body weight 109.318 kg 109.318 kg [facility] ([facility]) Systolic blood pressure 120 mm[Hg] 120 mm[Hg] [facility] ([facility]) Body surface area Derived from formula 2.33 m2 2.33 m2 [facility] ([facility]) Diastolic blood pressure 70 mm[Hg] 70 mm[Hg] [facility] ([facility]) Body weight 106.596 kg 106.596 kg [facility] ([facility]) Body surface area Derived from formula 2.30 m2 2.30 m2 [facility] ([facility]) Systolic blood pressure 136 mm[Hg] 136 mm[Hg] [facility] ([facility]) Diastolic blood pressure 68 mm[Hg] 68 mm[Hg] [facility] ([facility]) Body height 73 [in_i] 73 [in_i] [facility] ([facility]) 6'1" Body weight 235.00 [lb_av] 235.00 [lb_av] [facility] ([facility]) Body mass index (BMI) [Ratio] 31.0 kg/m2 31.0 k g/m2 [facility] ([facility]) [place] body weight 184 [lb_av] 184 [lb_av] [facility] ([facility]) Body height 73 [in_i] 73 [in_i] [facility] ([facility]) 6'1" Systolic blood pressure 132 mm[Hg] 132 mm[Hg] M [facility] ([facility]) Body weight 235.50 [lb_av] 235.50 [lb_av] [facility] ([facility]) Body mass index (BMI) [Ratio] 31.1 kg/m2 31.1 k g/m2 [facility] ([facility]) [place] body weight 184 [lb_av] 184 [lb_av] [facility] ([facility]) Body weight 106.823 kg 106.823 kg [facility] ([facility]) Body surface area Derived from formula 2.31 m2 2.31 m2 [facility] ([facility]) Diastolic blood pressure 78 mm[Hg] 78 mm[Hg] [facility] ([facility]) Diastolic blood pressure 72 mm[Hg] 72 mm[Hg] [facility] ([facility]) Heart rate 109 /min 109 /min [facility] ([facility]) Body height 73 [in_i] 73 [in_i] [facility] ([facility]) 6'1" Body weight 240.00 [lb_av] 240.00 [lb_av] [facility] ([facility]) Body mass index (BMI) [Ratio] 31.7 kg/m2 31.7 k g/m2 [facility] ([facility]) [place] body weight 184 [lb_av] 184 [lb_av] [facility] ([facility]) Body weight 108.864 kg 108.864 kg [facility] ([facility]) Body surface area Derived from formula 2.32 m2 2.32 m2 [facility] ([facility]) Systolic blood pressure 120 mm[Hg] 120 mm[Hg] [facility] Systolic blood pressure 149 mm[Hg] 149 mm[Hg] [facility] Diastolic blood pressure 86 mm[Hg] 86 mm[Hg] [facility] ([facility]) Body height 73 [in_i] 73 [in_i] [facility] ([facility]) 6'1" Body weight 237.00 [lb_av] 237.00 [lb_av] [facility] ([facility]) Body mass index (BMI) [Ratio] 31.3 kg/m2 31.3 k g/m2 [facility] ([facility]) [place] body weight 184 [lb_av] 184 [lb_av] [facility] ([facility]) Body weight 107.503 kg 107.503 kg [facility] ([facility]) Body surface area Derived from formula 2.31 m2 2.31 m2 [facility] ([facility]) Systolic blood pressure 152 mm[Hg] 152 mm[Hg] [facility] ([facility]) Diastolic blood pressure 78 mm[Hg] 78 mm[Hg] [facility] ([facility]) Body height 73 [in_i] 73 [in_i] [facility] ([facility]) 6'1" Body weight 239.38 [lb_av] 239.38 [lb_av] [facility] ([facility]) Body mass index (BMI) [Ratio] 31.6 kg/m2 31.6 k g/m2 [facility] ([facility]) [place] body weight 184 [lb_av] 184 [lb_av] [facility] ([facility]) Body weight 108.581 kg 108.581 kg [facility] ([facility]) Diastolic blood pressure 101 mm[Hg] 101 mm[Hg] [facility] ([facility]) Body height 73 [in_i] 73 [in_i] [facility] ([facility]) 6'1" Body weight 239.50 [lb_av] 239.50 [lb_av] [facility] ([facility]) Systolic blood pressure 186 mm[Hg] 186 mm[Hg] [facility] ([facility]) Body mass index (BMI) [Ratio] 31.6 kg/m2 31.6 k g/m2 [facility] ([facility]) [place] body weight 184 [lb_av] 184 [lb_av] [facility] ([facility]) Body weight 108.637 kg 108.637 kg [facility] ([facility]) Systolic blood pressure 93 mm[Hg] 93 mm[Hg] [facility] ([facility]) Diastolic blood pressure 63 mm[Hg] 63 mm[Hg] [facility] ([facility]) Body height 73 [in_i] 73 [in_i] [facility] ([facility]) 6'1" Body weight 254.38 [lb_av] 254.38 [lb_av] [facility] ([facility]) Body mass index (BMI) [Ratio] 33.6 kg/m2 33.6 k g/m2 [facility] ([facility]) [place] body weight 184 [lb_av] 184 [lb_av] [facility] ([facility]) Body weight 115.385 kg 115.385 kg [facility] ([facility]) ID Date Data Source [id number] 06/02/2020 01:57:46 PM [facility] Name Value Range Interpretation Code Description Data Source(s) WEIGHT RECORDED 253.53 lb 253.53 lb [facility] ID Date Data Source [id number] 05/26/2020 03:31:44 PM [facility] Name Value Range Interpretation Code Description Data Source(s) WEIGHT RECORDED 245 lb 245 lb [facility] Body height Measured 72 in 72 in [facility] Patient Treatment Plan of Care Planned Activity Planned Date Details Description Data Source (s) 0.3 ML Enoxaparin sodium 100 MG/ML Prefilled Syringe 020 09:00:00 AM [facility] Oxycodone Hydrochloride 5 MG Oral Tablet 06/02/2020 12:00:00 AM [facility] Acetaminophen 325 MG Oral Tablet 06/02/2020 12:00:00 AM [facility] oxyCODONE (ROXICODONE) immediate release tablet 5 mg 08:03:08 PM [facility] dextrose 50 % IV solution 25 mL 06/01/2020 08:03:06 PM [facility] Glucagon 1 MG Injection 06/01/2020 08:03:06 PM [facility] Glucose 0.417 MG/MG Oral Gel 06/01/2020 08:03:06 PM [facility] Simvastatin 20 MG Oral Tablet 05/11/2020 12:00:00 AM [facility] Magnesium Oxide 400 MG Oral Tablet 05/11/2020 12:00:00 AM [facility] Calcitriol 0.0005 MG Oral Capsule 05/11/2020 12:00:00 AM [facility] Amlodipine 5 MG Oral Tablet 05/11/2020 12:00:00 AM [facility] 24 HR Isosorbide Mononitrate 30 MG Extended Release Or al Tablet 03/30/2020 12:00:00 AM [facility] ospital pantoprazole 40 MG Delayed Release Oral Tablet 12/26/2017 12:00:00 AM [facility] Bumetanide 2 MG Oral Tablet 07/28/2016 12:00:00 AM [facility] Magnesium Oxide 400 MG Oral Tablet 04/24/2016 12:00:00 AM [facility] carvedilol 12.5 MG Oral Tablet 10/06/2015 12:00:00 AM [facility] Spironolactone 25 MG Oral Tablet 05/02/2015 12:00:00 AM [facility] Calcium Carbonate-Vitamin D (CALCIUM 500/D PO) [facility] febuxostat 80 MG Oral Tablet [Uloric] [facility] ferrous sulfate 325 MG Oral Tablet [facility] Simvastatin 40 MG Oral Tablet [facility] latanoprost 0.05 MG/ML Ophthalmic Solution [facility]
--- NOTE | 2021-06-14 17:05 | HPEPDOC ---
General Date of Admission 06/14/21 Date of Service: Jun 14, 2021 Chief Complaint The patient is a 70-year-old male admitted with a reason for visit of Left Foot Cellulitis Likely Osteo. Source: Patient History of Present Illness Patient is 70 years old male with past medical history of morbid obesity, history of lung cancer status post chemotherapy and radiation, unknown stage. Hx of renal carcinoma s/p left nephrectomy, end-stage renal disease, BPH, chronic CHF, DM, and gout presented to hospital with left big toe redness. Patient is poor historian. Patient was directly admitted from senior government program analyst office from [facility], patient was seen by Dr. Fuentes and she recommended to transfer patient for possible left foot metatarsal amputation. Patient stated that he developed erythema with swelling of left big toe a few days ago. He denies any fever or chills. Patient denied any chest pain, palpitations, diarrhea or dysuria Home Medications Scheduled Acetaminophen (Acetaminophen) 500 Mg Tablet, 1,000 MG PO TID Aspirin (Aspirin) 325 Mg Tablet, 325 MG PO DAILY, (Reported) Calcium Carbonate/Vitamin D3 (Calcium 500-Vit D3 400 Tablet) 1 Each Tablet, 1 TAB PO DAILY, (Reported) Febuxostat (Febuxostat) 40 Mg Tablet, 40 MG PO DAILY, (Reported) Hydralazine HCl (Hydralazine HCl) 50 Mg Tablet, 50 MG PO TID, (Reported) Insulin Glargine (Lantus) 100 Unit/1 Ml Vial, 20 UNITS SC QAM, (Reported) Insulin Human Lispro (Humalog) 100 Unit/1 Ml Vial, 1 DOSE SC AC, (Reported) PER SLIDING SCALE Levothyroxine Sodium (Levothyroxine Sodium) 50 Mcg Tablet, 50 MCG PO DAILY, (Reported) Morphine Sulfate (Morphine Sulfate ER) 30 Mg Tablet.er, 15 MG PO BID Multivitamins (Thera M Plus Tablet) 1 Each Tablet, 1 TAB PO DAILY, (Reported) Freedom-3 Fatty Acids/Fish Oil (Fish Oil 1,000 mg Capsule) 1 Each Capsule, 1,000 M G PO QHS, (Reported) Simvastatin (Simvastatin) 40 Mg Tablet, 40 MG PO QPM, (Reported) Venlafaxine HCl (Venlafaxine HCl ER) 37.5 Mg Cap.er.24h, 37.5 MG PO DAILY, (Reported) Scheduled PRN Morphine Sulfate (Morphine Sulfate) 30 Mg Tablet, 15 MG PO Q4HP PRN for SEVERE PAIN (PS 8-10) Allergies Coded Allergies: dulaglutide (Verified Allergy, Severe, shortness of breath, 12/28/20) Sulfa (Sulfonamide Antibiotics) (Verified Allergy, Intermediate, rash, 12/28/20) clindamycin (Verified Allergy, Unknown, 12/28/20) prochlorperazine (Verified Allergy, Unknown, 12/28/20) sulfamethoxazole (Verified Allergy, Unknown, 12/28/20) trimethoprim (Verified Allergy, Unknown, 12/28/20) allopurinol (Verified Adverse Reaction, Intermediate, involuntary movement, 12/28/20) Past Medical History Medical History morbid obesity, hx of renal carcinoma s/p left nephrectomy, ESRD, BPH, chronic CHF, DM, and gout, history of lung cancer Surgical History Appendectomy, left nephrectomy, inguinal hernia repair, arm surgery Family History I personally reviewed family history and found not pertinent Social History * Smoker: Denies Alcohol: Denies Drugs: denies A-FIB/CHADSVASC A-FIB History Current/History of A-Fib/PAF?: No Current PO Anticoag Therapy: No Review of Systems Constitutional: Denies: Chills, Fever Eyes: Denies: Pain ENT: Denies: Head Aches Skin: Reports: Lesions Pulmonary: Denies: Dyspnea, Cough Cardiovascular: Denies: Chest Pain Gastrointestinal: Denies: Nausea, Vomiting Genitourinary: Denies: Dysuria Hematologic: Denies: Bruising Endocrine: Denies: Polydipsia Musculoskeletal: Denies: Neck Pain Neurological: Denies: Weakness Psych: Reports: Mood Normal Physical Examination General Exam: Positive: Alert, Cooperative Eye Exam: Positive: PERRLA ENT Exam: Positive: Atraumatic Neck Exam: Positive: Supple; Negative: JVD Chest Exam: Positive: Clear to auscultation Heart Exam: Positive: Rate Normal Telemetry: Positive: No significant arrhythmia Abdomen Exam: Positive: Normal bowel sounds Extremity Exam: Positive: Tenderness (Left big toe), Swelling (Left big toe with surrounding erythema) Skin Exam: Positive: Breakdown (Pressure ulcer stage II of left big toe); Negative: Rash Neuro Exam: Positive: Strength at 5/5 X4 ext, Cranial Nerves 3-12 NL Psych Exam: Positive: Mental status NL Vital Signs hr85 Assessment/Plan Patient is 70 years old male with past medical history of morbid obesity, history of lung cancer status post chemotherapy and radiation, unknown stage. Hx of renal carcinoma s/p left nephrectomy, end-stage renal disease, BPH, c hronic CHF, DM, and gout presented to hospital with left big toe redness. Patient is poor historian. Patient was directly admitted from senior government program analyst office from [facility], patient was seen by Dr. Fuentes and she recommended to transfer patient for possible left foot metatarsal amputation. Patient stated that he developed erythema with swelling of left big toe a few days ago. He denies any fever or chills. Patient denied any chest pain, palpitations, diarrhea or dysuria Problems (1) Wound of foot Status: Acute Problem Text: There is concern for big toe osteomyelitis We will proceed with MRI of the left foot Vancomycin IV, Zosyn IV Appreciate/agree with senior government program analyst consult CBC, BMP, lactic acid (2) Diabetes Status: Chronic Problem Text: Detemir twice daily Insulin sliding scale Diabetes diet HbA1c (3) ESRD (end stage renal disease) Status: Chronic Problem Text: Nephrology team will follow him (4) Cellulitis Status: Acute Problem Text: See above (5) Diastolic CHF Status: Chronic Problem Text: Not in acute exacerbation I's and O's Plan / VTE VTE Prophylaxis Ordered?: Yes LEIYD PENN DO Jun 14, 2021 17:05
[2021-06-14] MEDS: HumaLOG INSULIN (NovoLOG) PER UNIT SC SCH ×2 (17:06→20:39)
[2021-06-14] MEDS ORDERED: VANCOMYCIN HCL 1,000 MG, VIAL MATE ADAPTER 1 EACH in NS 250 ML IV SCH (17:10)
[2021-06-14] MEDS ORDERED: VITMTA PO (18:04)
[2021-06-14] MEDS ORDERED: LEVO50TA5 PO (18:04)
[2021-06-14] MEDS ORDERED: BAYE325T12 PO (18:04)
[2021-06-14] MEDS ORDERED: FEBU40TA2 PO (18:04)
[2021-06-14] MEDS ORDERED: VENL37.598 PO (18:04)
[2021-06-14] MEDS ORDERED: HOME MED LIST COMPLETE! XX SCH (18:05)
[2021-06-14 18:16] LABS: BASO % 0.4 % (0.0-1.0); EOS # 0.2 10^3/uL (0.0-0.5); EOS % 1.7 % (0.0-3.0); HEMATOCRIT 29.6 % (42.0-52.0); LYMPH # 1.1 10^3/uL (1.5-5.0); LYMPH % 10.8 % (24.0-44.0); MEAN CORPUSCULAR HGB CONC 33.8 g/dl (32.0-36.5); MEAN CORPUSCULAR VOLUME 97.7 fl (80.0-96.0); MONO # 0.6 10^3/uL (0.0-0.8); NEUTROPHILS # 8.5 10^3/uL (1.5-8.5); NEUTROPHILS % 80.6 % (36.0-66.0); PLATELET COUNT, AUTOMATED 169 10^3/uL (150-450); RED BLOOD COUNT 3.03 10^6/uL (4.30-6.10); WHITE BLOOD COUNT 10.5 10^3/uL (4.0-10.0)
[2021-06-14 19:45] LABS: HEMOGLOBIN A1c 8.7 %
[2021-06-14 20:46] LABS: ALBUMIN 2.1 GM/DL (3.2-5.2); BILIRUBIN,TOTAL 0.5 MG/DL (0.2-1.0); CALCIUM LEVEL 7.8 MG/DL (8.8-10.2); CREATININE FOR GFR 3.97 MG/DL (0.70-1.30); POTASSIUM SERUM 3.2 MEQ/L (3.5-5.1); TOTAL PROTEIN 5.7 GM/DL (6.4-8.2)
[2021-06-14] MEDS: HEPARIN SOD (PORCINE) 5000UNITS/ML 1ML VIAL/SYRINGE SC SCH (21:21)
[2021-06-14] MEDS: PIPERACILLIN/TAZOBACTAM SOD 2.25 GM in D5W MINI-BAG PLUS 50 ML IV SCH ×2 (21:22→21:32)
[2021-06-14] MEDS: LEVEMIR (INSULIN DETEMIR) 1 UNITS/0.01ML SC SCH (21:22)
[2021-06-14 22:00] VITALS: BP 114/62
[2021-06-14] MEDS ORDERED: VANCOMYCIN HCL 1,000 MG, VIAL MATE ADAPTER 1 EACH in NS 250 ML IV ONE ×2 (22:00→23:00)
[2021-06-15] MEDS: PIPERACILLIN/TAZOBACTAM SOD 2.25 GM in D5W MINI-BAG PLUS 50 ML IV SCH ×3 (05:07→20:49)
[2021-06-15 06:00] VITALS: BP 129/66
[2021-06-15] MEDS: LEVEMIR (INSULIN DETEMIR) 1 UNITS/0.01ML SC SCH ×2 (08:10→20:50)
[2021-06-15] MEDS: HumaLOG INSULIN (NovoLOG) PER UNIT SC SCH ×4 (08:10→20:16)
[2021-06-15] MEDS: HEPARIN SOD (PORCINE) 5000UNITS/ML 1ML VIAL/SYRINGE SC SCH ×2 (08:10→20:49)
[2021-06-15] MEDS: ASPIRIN 325 MG TAB PO SCH (09:00)
[2021-06-15] MEDS ORDERED: CALCIUM/VITAMIN D 500 MG TAB PO SCH (09:00)
[2021-06-15] MEDS: FEBUXOSTAT 40 MG TABLET (ULORIC) PO SCH (09:00)
[2021-06-15] MEDS: LEVOTHYROXINE 50MCG TABLET (0.05MG) PO SCH (09:00)
[2021-06-15] MEDS: **hydrALAZINE** 50 MG TAB PO SCH ×3 (09:00→20:36)
[2021-06-15] MEDS: VENLAFAXINE **XR** 37.5 MG CAPSULE PO SCH (09:00)
[2021-06-15] MEDS ORDERED: SODIUM CHLORIDE 0.9% 1000ML IV PRN (09:05)
[2021-06-15] MEDS ORDERED: DARBEPOETIN 100 MCG/0.5 ML *DIALYSIS* SYRINGE (J0882) IV SCH (09:35)
[2021-06-15 09:41] LABS: BASO # 0.1 10^3/uL (0.0-0.2); BASO % 0.4 % (0.0-1.0); EOS # 0.3 10^3/uL (0.0-0.5); EOS % 2.5 % (0.0-3.0); HEMATOCRIT 29.2 % (42.0-52.0); HEMOGLOBIN 10.2 g/dl (13.5-17.5); MEAN CORPUSCULAR HGB CONC 34.9 g/dl (32.0-36.5); MEAN CORPUSCULAR VOLUME 97.3 fl (80.0-96.0); MONO # 0.6 10^3/uL (0.0-0.8); MONO % 5.3 % (2.0-8.0); NEUTROPHILS # 9.4 10^3/uL (1.5-8.5); NEUTROPHILS % 82.2 % (36.0-66.0); PLATELET COUNT, AUTOMATED 208 10^3/uL (150-450); WHITE BLOOD COUNT 11.4 10^3/uL (4.0-10.0)
[2021-06-15 10:06] LABS: ALBUMIN 2.2 GM/DL (3.2-5.2); BILIRUBIN,TOTAL 0.6 MG/DL (0.2-1.0); CALCIUM LEVEL 8.2 MG/DL (8.8-10.2); CREATININE FOR GFR 4.04 MG/DL (0.70-1.30); GLOMERULAR FILTRATION RATE 15.7 (>42); MAGNESIUM LEVEL 1.9 MG/DL (1.8-2.4); POTASSIUM SERUM 3.2 MEQ/L (3.5-5.1)
--- NOTE | 2021-06-15 12:25 | CR ---
CONSULTATION DATE: 06/15/2021 REASON FOR CONSULTATION: Left hallux infection. HISTORY OF PRESENT ILLNESS: Rico Caban is a 70-year-old diabetic male who was sent from [facility] due to left hallux amputation. He is following with Dr. Fuentes who sent him to [facility] for amputation of his left hallux. He states the wound has been there about a year and has developed worsening erythema and edema to his toe over the last week. PAST MEDICAL HISTORY: Significant for history of renal cell carcinoma status post left nephrectomy, endstage renal disease on dialysis, diabetes, history of lung cancer, gout, congestive heart failure, obesity. PAST SURGICAL HISTORY: Appendectomy, left nephrectomy, inguinal hernia repair. SOCIAL HISTORY: Denies smoking or alcohol. REVIEW OF SYSTEMS: Negative for nausea, vomiting, fever or chills. LABORATORY DATA: White blood cell count today is 11.4, lower extremity examination on the left hallux, there is an ulceration of the dorsal hallux with exposed bone and purulent drainage coming from the inner phalangeal joint. ASSESSMENT: A 70-year-old diabetic male with endstage renal disease and left hallux osteomyelitis. Will bring him to the Operating Room tomorrow for amputation of his toe.
[2021-06-15 14:00] VITALS: BP 125/62
[2021-06-15] MEDS ORDERED: **VANCO AFTER HD** MISC XX SCH (16:00)
[2021-06-15] MEDS ORDERED: VANCOMYCIN HCL 1,000 MG, VIAL MATE ADAPTER 1 EACH in NS 250 ML IV SCH (16:00)
--- NOTE | 2021-06-15 16:22 | CR ---
CONSULTATION DATE: 06/15/2021 REQUESTING PHYSICIAN: Florin Crowley DO REASON FOR CONSULTATION: Management of end-stage renal disease on hemodialysis. HISTORY OF PRESENT ILLNESS: Rico Caban is known to me. He is a 70-year-old male with a past medical history of end-stage renal disease on hemodialysis. The patient also has a past medical history of lung cancer, status post chemotherapy and radiation, history of renal carcinoma, status post left nephrectomy, BPH, congestive heart failure, diabetes and gout. The patient was admitted to [facility] yesterday for left foot cellulitis with suspected osteomyelitis and for possible left foot metatarsal amputation. He complains of erythema and swelling in the left big toe for several days but denies any fevers or chills. His last dialysis was on June 13 and today he is due for dialysis and nephrology evaluation was requested for management of his chronic hemodialysis. PAST MEDICAL HISTORY: 1. History of longstanding hypertension. 2. Type 2 diabetes. 3. History of renal cell carcinoma. 4. History of ESRD on hemodialysis. 5. History of gout. 6. Congestive heart failure. 7. Anemia. 8. Secondary hypothyroidism of renal origin. 9. Obesity. 10. History of lung cancer. 11. BPH. PAST SURGICAL HISTORY: 1. Appendectomy. 2. Left nephrectomy. 3. Inguinal hernia repair. 4. Arm surgery. 5. Permacath. 6. AV fistula creation. FAMILY HISTORY: Denies family history of renal failure. SOCIAL HISTORY: Denies smoking, alcohol or drugs. allergies: all reviewed, please see chart home medications: all reviewed please see chart. REVIEW OF SYSTEMS: Constitutional: Denies fevers or chills. Eyes: Denies visual changes or pain. ENT: Denies headaches, odynophagia, rhinorrhea. Skin: Reports erythema of the big toe (left). Pulmonary: Denies cough, denies shortness of breath. Cardiac: Denies chest pain, palpitations or leg swelling. Gastrointestinal: Denies nausea, vomiting, diarrhea. Genitourinary: Denies dysuria or hematuria. Hematologic: Reports anemia, denies easy bleeding or bruising. Endocrine: Reports diabetes and secondary hyperparathyroidism. Musculoskeletal: Reports pain in the left great toe and also a history of gout. Neurologic: Denies seizure or syncope. Psychiatric: Denies anxiety or depression. PHYSICAL EXAMINATION: Vital signs: Temperature 98, pulse 95, respiratory rate 18, blood pressure 129/66, saturating 98% on room air. Intake yesterday was 1 liter. Dialysis today removed two liters. Weight in the bed scale today is 109 kg. General: Patient is seen in the hemodialysis unit receiving his treatment, awake, alert, oriented x3, comfortable, in no distress. HEENT: Extraocular muscles are intact. Tongue is moist. Neck: Supple. There is a Permacath present in the right chest wall which is currently in use. Heart sounds are regular, S-1, S-2. Lungs: Clear to auscultation, no crackles or rales. He is comfortable on room air. Abdomen: Soft and nontender. There are bowel sounds. Extremities: There is a fistula on the right arm which is patent with thrill and bruit. His lower extremities have no edema. His foot was not examined. Neurologic: He is oriented x3, no focal deficits. Psychiatric: Appropriate mood and affect. Skin: Warm and dry, normal turgor. LABORATORY DATA: White count 11.4, hemoglobin 10.2, platelets 208. Sodium 137, potassium 3.2, bicarbonate 27, BUN 44, creatinine 4.0, magnesium 1.9. INPATIENT MEDICATIONS: 1. Zosyn 2.25 gm IV q.8 hourly. 2. Vancomycin dosed post-dialysis. 3. Aspirin 325 mg p.o. daily. 4. Calcium plus Vitamin D 1 mg p.o. daily. 5. Aranesp 100 mcg with dialysis. 6. Uloric 40 mg p.o. daily. 7. Heparin 5000 units subcu q.12 hourly. 8. Hydralazine 50 mg p.o. three times a day. 9. Insulin. 10. Synthroid 50 mcg p.o. daily. 11. Simvastatin 40 mg p.o. q.p.m. 12. Venlafaxine 37.5 mg p.o. daily. PROBLEMS: 1. End-stage renal disease on hemodialysis on a Friday, Friday, Friday schedule. Patient is being dialyzed today. Two liters of fluid are being removed. His electrolytes are acceptable (mild hypokalemia which will improve with dialysis) and his volume status is compensated. We are dialyzing via a permacath. He does have a maturing fistula in place. 2. Insulin dependent diabetes mellitus. Most recent A1c 8.7%. Insulin is adjusted by the primary team. 3. Hypokalemia. It will improve with dialysis. We are dialyzing today with a 4.0 mEq potassium bath. 4. Anemia of chronic renal failure. Hemoglobin is 10.2 on the latest labs which is optimal. We will continue Aranesp while he is in the hospital. 5. Hypertension. Blood pressures are well controlled on the current regimen and we had no issues removing fluid with his treatment today. 6. Possible left big toe osteomyelitis, being followed by podiatry and on IV steroids as managed by the primary team. Wound cultures and blood cultures are pending. He is on Zosyn and vancomycin and I note that an MRI of the foot is ordered as well. HANNAH
--- NOTE | 2021-06-15 18:43 | IPNPDOC ---
Text Note Date of Service The patient was seen on 06/15/21. NOTE Subjective: No any acute events overnight. Patient denied fever, chills, chest pain or palpitations. Objective: GENERAL APPEARANCE: NAD HEENT: no scleral icterus, no JVD, EOMI CARDIOVASCULAR: S1S2 LUNGS: Diminished lung sounds bilaterally ABDOMEN: soft & not tender w palpation MUSCULOSKELETAL: no cyanosis, Left big toe with stage II wound with surrounding erythema INTEGUMENT: no generalized pallor NEUROLOGICAL: cranial nerve function from 2-12 intact, follows commands, speech not dysarthric Assessment/Plan Patient is 70 years old male with past medical history of morbid obesity, history of lung cancer status post chemotherapy and radiation, unknown stage. Hx of renal carcinoma s/p left nephrectomy, end-stage renal disease, BPH, chronic CHF, DM, and gout presented to hospital with left big toe redness. Patient is poor historian. 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 Fuentes and she recom mended to transfer patient for possible left foot metatarsal amputation. Patient stated that he developed erythema with swelling of left big toe a few days ago 1) Wound of left foot/osteomyelitis of left hallux There is concern for big toe osteomyelitis Vancomycin IV, Zosyn IV day 1 Dr. Loco recommended left hallux amputation, the surgery will be done tomorrow (2) Diabetes Detemir twice daily Insulin sliding scale Diabetes diet HbA1c 8.7 (3) ESRD (end stage renal disease) Dialysis was done today, nephrology team follows him (4) Cellulitis See above (5) Diastolic CHF Not in acute exacerbation I's and O's Hypokalemia Replaced Anemia of chronic renal failure Aranesp per nephrology team No indication for blood transfusion DVT prophylaxis with heparin 5000 twice daily VS,Fishbone, I+O VS, Fishbone, I+O Laboratory Tests 06/14/21 20:10 06/15/21 06:00 Vital Signs Date Time Temp Pulse Resp B/P (MAP) Pulse Ox O2 Delivery O2 Flow Rate FiO2 06/15/21 17:35 113/67 06/15/21 14:00 98.2 94 18 97 Room Air I&O- Last 24 Hours up to 6 AM 06/15/21 06:00 Intake Total 1300 ml Output Total 0 ml Balance 1300 ml LEIDY PENN DO Jun 15, 2021 18:43
[2021-06-15] MEDS ORDERED: POTASSIUM CHLORIDE 10MEQ SR TABLET PO ONE (19:00)
[2021-06-15 19:59] VITALS: BP 97/53
[2021-06-15] MEDS: SIMVASTATIN 40 MG TAB PO SCH (20:49)
[2021-06-15 22:24] VITALS: BP 105/64
[2021-06-16] VITALS (9 sets, daily range): BP systolic 104–116; BP diastolic 56–71
[2021-06-16] MEDS: LEVOTHYROXINE 50MCG TABLET (0.05MG) PO SCH (05:00)
[2021-06-16] MEDS: PIPERACILLIN/TAZOBACTAM SOD 2.25 GM in D5W MINI-BAG PLUS 50 ML IV SCH ×3 (05:00→21:13)
[2021-06-16 07:12] LABS: BASO % 0.4 % (0.0-1.0); EOS # 0.2 10^3/uL (0.0-0.5); HEMOGLOBIN 9.3 g/dl (13.5-17.5); LYMPH # 0.9 10^3/uL (1.5-5.0); LYMPH % 12.9 % (24.0-44.0); MEAN CORPUSCULAR HEMOGLOBIN 32.7 pg (27.0-33.0); MEAN CORPUSCULAR HGB CONC 33.2 g/dl (32.0-36.5); MEAN CORPUSCULAR VOLUME 98.6 fl (80.0-96.0); MONO # 0.6 10^3/uL (0.0-0.8); MONO % 7.9 % (2.0-8.0); NEUTROPHILS # 5.4 10^3/uL (1.5-8.5); NEUTROPHILS % 75.1 % (36.0-66.0); PLATELET COUNT, AUTOMATED 165 10^3/uL (150-450); RED BLOOD COUNT 2.84 10^6/uL (4.30-6.10); WHITE BLOOD COUNT 7.2 10^3/uL (4.0-10.0)
[2021-06-16] MEDS: HumaLOG INSULIN (NovoLOG) PER UNIT SC SCH ×4 (07:30→20:10)
[2021-06-16] MEDS ORDERED: BUPIVACAINE HCL 0.5% 10ML VIAL As Ordered ONE (08:02)
[2021-06-16] MEDS ORDERED: LIDOCAINE 1% MDV 20ML VIAL As Ordered ONE (08:02)
[2021-06-16] MEDS ORDERED: propofoL 200 MG/20 ML VIAL As Ordered ONE (08:56)
[2021-06-16] MEDS ORDERED: fentaNYL 100 MCG/2 ML INJECTION (J3010) As Ordered ONE (08:56)
[2021-06-16] MEDS ORDERED: MIDAZOLAM INJ 2MG/2ML VIAL (J2250 PER 1MG) As Ordered ONE (08:56)
[2021-06-16] MEDS ORDERED: LIDOCAINE 2% 100MG/5ML SDV (FOR ANES.) As Ordered ONE (08:56)
[2021-06-16] MEDS: **hydrALAZINE** 50 MG TAB PO SCH ×3 (09:00→20:10)
[2021-06-16] MEDS ORDERED: PHENYLephrine 500MCG 5ML (100MCG/ML) SYRINGE As Ordered ONE (09:05)
[2021-06-16] MEDS ORDERED: fentaNYL 100 MCG/2 ML INJECTION (J3010) IV PRN (09:35)
[2021-06-16] MEDS ORDERED: ONDANSETRON 4MG/2ML VIAL IV PRN (09:35)
[2021-06-16] MEDS ORDERED: PERCOCET 5MG/325MG TAB PO PRN (09:35)
[2021-06-16] MEDS ORDERED: LR 1,000 ML IV SCH (09:35)
--- NOTE | 2021-06-16 10:04 | RO ---
OPERATIVE NOTE DATE OF OPERATION: 06/16/2021 PREOPERATIVE DIAGNOSIS: Left hallux osteomyelitis. POSTOPERATIVE DIAGNOSIS: Left hallux osteomyelitis. PROCEDURE: Left hallux amputation. SURGEON: Himanshu Forrest DPM FITNESS TECHNICIAN: None. ANESTHESIA: Monitored anesthesia care, preop injection of 10 mL of 1:1 mixture of 1% Lidocaine plain and 0.5% Marcaine plain. ESTIMATED BLOOD LOSS: Minimal. MATERIALS: 3-0 nylon. INJECTABLES: None. COMPLICATIONS: None. CONDITION: Stable. SPECIMEN: Left hallux. INDICATIONS: Rico Caban is a 69-year-old diabetic male who was admitted to [facility] as a transfer due to left hallux osteomyelitis. He was noted to have an ulceration with exposed bone and purulent drainage. Decision was made to bring him to the operating room for hallux amputation. Patient side and site were identified and marked in the preoperative holding area. Consent was reviewed and obtained. All risks, complications and alternatives to the procedure were explained to the patient in detail and all questions were answered. DESCRIPTION OF PROCEDURE: The patient was brought to the operating room and placed on the stretcher in the supine position. Monitored anesthesia care was delivered by the anesthesia team. Preop injection of 10 mL of 1:1 mixture of 1% Lidocaine and 0.5% Marcaine plain were injected into the left foot. The left foot was prepped and draped in normal sterile fashion. Tourniquet was applied to the left ankle and inflated at 250 mmHg. The toe was inspected. There was a dorsal ulceration over the hallux IPJ with exposed eroded bone and purulence. An elliptical incision was made around the hallux with skin marker and the toe was disarticulated at the metatarsophalangeal joint with #15 blade. Culture swabs were taken of the purulent fluid and the hallux was sent to pathology. Nonviable tissue was removed using #15 blade. Site was irrigated with normal saline. The incision was closed using 3-0 nylon. Sterile dressings were applied. The tourniquet was deflated. The patient was brought to PACU with vital signs stable, neurovascular status intact. He will be readmitted to the floor for antibiotics.
[2021-06-16] MEDS: LEVEMIR (INSULIN DETEMIR) 1 UNITS/0.01ML SC SCH ×2 (10:40→21:12)
[2021-06-16] MEDS: FEBUXOSTAT 40 MG TABLET (ULORIC) PO SCH (10:48)
[2021-06-16] MEDS: VENLAFAXINE **XR** 37.5 MG CAPSULE PO SCH (10:49)
[2021-06-16] MEDS: ASPIRIN 325 MG TAB PO SCH (10:49)
[2021-06-16] MEDS: HEPARIN SOD (PORCINE) 5000UNITS/ML 1ML VIAL/SYRINGE SC SCH ×2 (10:49→21:13)
[2021-06-16] MEDS ORDERED: CALCIUM/VITAMIN D 500 MG TAB PO SCH (10:51)
[2021-06-16] MEDS: CALCIUM/VITAMIN D 500 MG TAB PO SCH (10:54)
[2021-06-16 11:21] LABS: ALBUMIN 2.1 GM/DL (3.2-5.2); BILIRUBIN,TOTAL 0.6 MG/DL (0.2-1.0); CALCIUM LEVEL 7.7 MG/DL (8.8-10.2); CREATININE FOR GFR 3.39 MG/DL (0.70-1.30); GLOMERULAR FILTRATION RATE 19.2 (>42); TOTAL PROTEIN 5.6 GM/DL (6.4-8.2)
--- NOTE | 2021-06-16 15:23 | IPN ---
PROGRESS NOTE DATE: 06/16/2021 Mr. Caban is seen this morning on his bedside. He came back from operating room after getting his left big toe amputation. He is feeling well and denies any pain at present. He has no dyspnea, chest pain, fever, or chills. PHYSICAL EXAMINATION: Temperature 97.5 degrees Fahrenheit, heart rate 100 per minute, respiratory rate 18 per minute, blood pressure 1009/65 mmHg, and oxygen saturation 95% on room air. Head is atraumatic. Neck supple and without jugular venous distention (JVD) or thyroid enlargement. Heart sounds are tachycardic and irregular. Lungs sound clear to auscultation. Abdomen soft, and nontender, and bowel sounds are normal. Extremities without any cyanosis or clubbing. Left foot is wrapped in dressing. Neurologically, he is awake, alert, and at his baseline mentation. Today's labs show WBC count 7.2, hemoglobin 9.3, hematocrit 28. Sodium 139, potassium 4.0, CO2 of 29, BUN 28, creatinine 3.39. Calcium level 7.7. PROBLEMS: 1. End-stage renal disease. Patient was dialyzed yesterday, and we will schedule his next dialysis for Friday. There is no emergent need for dialysis today. 2. Anemia. His anemia is stable at present, and he will receive Aranesp with hemodialysis. At present, no urgent need for transfusion. 3. Hypertension. Blood pressure seems well controlled on current antihypertensive medications. No change are being made today. 4. Left big toe gangrene. Patient remains on antibiotics. He just had his toe amputation this morning. He has also been on vancomycin in addition to Zosyn. 5. Hypertension. Blood pressure seems well controlled at present, and no changes are being made today.
--- NOTE | 2021-06-16 15:45 | IPNPDOC ---
Text Note Date of Service The patient was seen on 06/16/21. NOTE Subjective: No any acute events overnight. Left hallux amputation was done today and patient tolerated procedure well Objective: GENERAL APPEARANCE: NAD HEENT: no scleral icterus, no JVD, EOMI CARDIOVASCULAR: S1S2 LUNGS: Diminished lung sounds bilaterally ABDOMEN: soft & not tender w palpation MUSCULOSKELETAL: no cyanosis, Left big toe with stage II wound with surrounding erythema INTEGUMENT: no generalized pallor NEUROLOGICAL: cranial nerve function from 2-12 intact, follows commands, speech not dysarthric Assessment/Plan Patient is 70 years old male with past medical history of morbid obesity, history of lung cancer status post chemotherapy and radiation, unknown stage. Hx of renal carcinoma s/p left nephrectomy, end-stage renal disease, BPH, chronic CHF, DM, and gout presented to hospital with left big toe redness. Patient is poor historian. Patient was directly admitted from athlete manager office from [facility], patient was seen by Dr. Fuentes and she recommended to transfer patient for possible left foot metatarsal amputation. Patient stated that he developed erythema with swelling of left big toe a few days ago 1) Wound of left foot/osteomyelitis of left hallux Patient developed left hallux osteomyelitis DC vancomycin IV, MRSA negative, Zosyn IV day 2 Dr. Loco did left hallux amputation 1 set of blood culture came back positive for gram-positive cocci in pairs. Second set negative. Await repeat blood culture (2) Diabetes Detemir twice daily Insulin sliding scale Diabetes diet HbA1c 8.7 (3) ESRD (end stage renal disease) nephrology team follows him (4) Cellulitis See above (5) Diastolic CHF Not in acute exacerbation I's and O's Hypokalemia Replaced Anemia of chronic renal failure Aranesp per nephrology team No indication for blood transfusion DVT prophylaxis with heparin 5000 twice daily VS,Fishbone, I+O VS, Fishbone, I+O Laboratory Tests 06/16/21 06:39 06/16/21 10:34 Vital Signs Date Time Temp Pulse Resp B/P (MAP) Pulse Ox O2 Delivery O2 Flow Rate FiO2 06/16/21 14:30 97.8 85 18 115/63 (80) 96 Room Air I&O- Last 24 Hours up to 6 AM 06/16/21 06:00 Intake Total 2260 ml Output Total 2000 ml Balance 260 ml LEIDY PENN DO Jun 16, 2021 15:44
[2021-06-16] MEDS: ACETAMINOPHEN TAB 650MG DOSE (2X325MG) PO PRN (19:03)
[2021-06-16] MEDS ORDERED: MORPHINE 2 MG/ML 1ML VIAL (J2270) IV PRN (19:20)
[2021-06-16] MEDS: SIMVASTATIN 40 MG TAB PO SCH (21:12)
[2021-06-16] MEDS: PERCOCET 5MG/325MG TAB PO PRN (23:33)
[2021-06-17 01:55] VITALS: BP 111/69
[2021-06-17] MEDS: PIPERACILLIN/TAZOBACTAM SOD 2.25 GM in D5W MINI-BAG PLUS 50 ML IV SCH (04:56)
[2021-06-17] MEDS: LEVOTHYROXINE 50MCG TABLET (0.05MG) PO SCH (05:29)
[2021-06-17 06:00] VITALS: BP 122/88
[2021-06-17 07:19] LABS: BASO # 0.1 10^3/uL (0.0-0.2); BASO % 0.7 % (0.0-1.0); EOS # 0.2 10^3/uL (0.0-0.5); EOS % 3.2 % (0.0-3.0); HEMOGLOBIN 9.4 g/dl (13.5-17.5); LYMPH # 1.1 10^3/uL (1.5-5.0); LYMPH % 16.8 % (24.0-44.0); MEAN CORPUSCULAR HEMOGLOBIN 33.1 pg (27.0-33.0); MEAN CORPUSCULAR HGB CONC 33.6 g/dl (32.0-36.5); MEAN CORPUSCULAR VOLUME 98.6 fl (80.0-96.0); MONO # 0.5 10^3/uL (0.0-0.8); MONO % 7.7 % (2.0-8.0); NEUTROPHILS # 4.8 10^3/uL (1.5-8.5); PLATELET COUNT, AUTOMATED 162 10^3/uL (150-450); RED BLOOD COUNT 2.84 10^6/uL (4.30-6.10); WHITE BLOOD COUNT 6.8 10^3/uL (4.0-10.0)
[2021-06-17 07:48] LABS: BILIRUBIN,TOTAL 0.6 MG/DL (0.2-1.0); CALCIUM LEVEL 7.6 MG/DL (8.8-10.2); CREATININE FOR GFR 4.46 MG/DL (0.70-1.30); MAGNESIUM LEVEL 1.9 MG/DL (1.8-2.4); POTASSIUM SERUM 4.1 MEQ/L (3.5-5.1); TOTAL PROTEIN 5.5 GM/DL (6.4-8.2)
[2021-06-17] MEDS ORDERED: VANCOMYCIN HCL 1,000 MG, VIAL MATE ADAPTER 1 EACH in NS 250 ML IV SCH ×2 (08:30→09:00)
[2021-06-17] MEDS: PERCOCET 5MG/325MG TAB PO PRN ×2 (08:43→21:30)
[2021-06-17] MEDS: LEVEMIR (INSULIN DETEMIR) 1 UNITS/0.01ML SC SCH ×2 (08:44→21:00)
[2021-06-17] MEDS: VENLAFAXINE **XR** 37.5 MG CAPSULE PO SCH (08:44)
[2021-06-17] MEDS: HEPARIN SOD (PORCINE) 5000UNITS/ML 1ML VIAL/SYRINGE SC SCH ×2 (08:44→21:30)
[2021-06-17] MEDS: HumaLOG INSULIN (NovoLOG) PER UNIT SC SCH ×4 (08:44→20:01)
[2021-06-17] MEDS: ASPIRIN 325 MG TAB PO SCH (08:44)
[2021-06-17] MEDS: **hydrALAZINE** 50 MG TAB PO SCH ×3 (08:45→20:02)
[2021-06-17] MEDS: FEBUXOSTAT 40 MG TABLET (ULORIC) PO SCH (08:45)
[2021-06-17] MEDS: CALCIUM/VITAMIN D 500 MG TAB PO SCH (08:45)
[2021-06-17 10:00] VITALS: BP 114/68
[2021-06-17] MEDS ORDERED: VANCOMYCIN HCL 1,000 MG, VIAL MATE ADAPTER 1 EACH in NS 250 ML IV ONE (10:00)
[2021-06-17] MEDS: METOPROLOL TART 25 MG TABLET PO SCH ×2 (10:05→21:29)
[2021-06-17] MEDS ORDERED: VANCOMYCIN HCL 750 MG, VIAL MATE ADAPTER 1 EACH in NS 250 ML IV ONE (11:00)
--- NOTE | 2021-06-17 12:11 | IPNPDOC ---
Text Note Date of Service The patient was seen on 06/17/21. NOTE Subjective: No any acute events overnight. Patient denied fever, chills, sh ortness of breath, palpitations, nausea, vomiting, diarrhea Objective: GENERAL APPEARANCE: NAD HEENT: no scleral icterus, no JVD, EOMI CARDIOVASCULAR: S1S2 LUNGS: Diminished lung sounds bilaterally ABDOMEN: soft & not tender w palpation MUSCULOSKELETAL: no cyanosis, Left big toe with stage II wound with surrounding erythema INTEGUMENT: no generalized pallor NEUROLOGICAL: cranial nerve function from 2-12 intact, follows commands, speech not dysarthric Assessment/Plan Patient is 70 years old male with past medical history of morbid obesity, history of lung cancer status post chemotherapy and radiation, unknown stage. Hx of renal carcinoma s/p left nephrectomy, end-stage renal disease, BPH, chronic CHF, DM, and gout presented to hospital with left big toe redness. Patient is poor historian. Patient was directly admitted from respite care provider office from [facility], patient was seen by Dr. Fuentes and she recommended to transfer patient for possible left foot metatarsal amputation. Patient stated that he developed erythema with swelling of left big toe a few days ago 1) Wound of left foot/osteomyelitis of left hallux Patient developed left hallux osteomyelitis MRSA was negative, however wound culture came back MRSA positive I restarted vancomycin IV day 2 Dr. Loco did left hallux amputation on 06/16/2021 1 set of blood culture came back positive Staph epidermidis. Second set negative. Repeat blood culture negative Appreciate/agree with ID consult Echo order placed (2) Diabetes type II Glucose level under control Detemir twice daily Insulin sliding scale Diabetes diet HbA1c 8.7 (3) ESRD (end stage renal disease) nephrology team follows him (4) Cellulitis See above (5) Diastolic CHF Not in acute exacerbation I's and O's Hypokalemia Replaced Anemia of chronic renal failure Aranesp per nephrology team No indication for blood transfusion DVT prophylaxis with heparin 5000 twice daily VS,Fishbone, I+O VS, Fishbone, I+O Laboratory Tests 06/17/21 06:59 Vital Signs Date Time Temp Pulse Resp B/P (MAP) Pulse Ox O2 Delivery O2 Flow Rate FiO2 06/17/21 10:05 93 114/68 06/17/21 10:05 16 94 Room Air 06/17/21 10:00 99.1 I&O- Last 24 Hours up to 6 AM 06/17/21 06:00 Intake Total 2009 ml Output Total 0 ml Balance 2009 ml LEIDY PENN DO Jun 17, 2021 12:11
[2021-06-17 14:00] VITALS: BP 110/68
[2021-06-17] MEDS: **VANCO AFTER HD** MISC XX SCH (16:00)
[2021-06-17] MEDS: ACETAMINOPHEN TAB 650MG DOSE (2X325MG) PO PRN (16:05)
--- NOTE | 2021-06-17 16:39 | IPN ---
NEPHROLOGY PROGRESS NOTE DATE: 06/17/2021 SUBJECTIVE: Mr. Caban is seen this morning at his bedside. He is resting comfortably in his bed and denies any nausea, vomiting, dyspnea or chest pain. He has no fever or chills. OBJECTIVE: PHYSICAL EXAMINATION: VITAL SIGNS: Temperature 99 degrees Fahrenheit, heart rate 96 per minute, respiratory rate 18 per minute, blood pressure 114/68 mm of mercury and oxygen saturation is 96% on room air. HEENT: His head is atraumatic. NECK: Supple and without JVD or thyroid enlargement. He has a dialysis catheter in the right internal jugular vein. HEART: Sounds are regular. LUNGS: Clear to auscultation. ABDOMEN: Soft and nontender and bowel sounds are normal. EXTREMITIES: Without any cyanosis or clubbing. Left forefoot is in the dressing where he had amputation of the left big toe yesterday. NEUROLOGICAL: He is at his baseline mentation without any focal deficits. LABORATORY STUDIES: Today's labs show a WBC count of 6.8, hemoglobin 9.4, and hematocrit 28.0. Sodium is 138 and potassium is 4.1. BUN is 39 and creatinine 4.46. The rest of his chemistries are unremarkable and unchanged. His albumin level is only 2.0. PROBLEMS: 1. End-stage renal disease - The patient is regularly dialyzed on a Friday, Friday and Friday schedule. He was last dialyzed on Friday and we will plan his next dialysis for tomorrow. His volume status is reasonably well compensated and electrolytes are within normal range. There is no emergent need for dialysis today. 2. Hypertension - blood pressure seems very well controlled on current antihypertensive medications. No changes are being made today. 3. Gangrene of the left big toe - The patient had amputation done yesterday. He remains on Vancomycin and Zosyn has been stopped this morning. 4. Anemia his anemia is stable and he will continue to receive Aranesp 100 mcg once a week while he is here in the hospital. 5. Left big toe gangrene - The patient already had amputation done. He is currently afebrile and we will wait for Podiatry follow up when his dressing gets opened. He is doing well and in good spirits today.
[2021-06-17] MEDS: ONDANSETRON 4 MG TAB PO PRN (18:11)
--- NOTE | 2021-06-17 20:41 | ECHO ---
ECHOCARDIOGRAM DATE OF PROCEDURE: 06/17/2021 Age: 70 Gender: Male7 Height: 72 inches Weight: 240 pounds Body Surface Area: 2.3 m2 Inpatient [address] [place], Room 4229 REFERRING PHYSICIAN: INDICATION: Abnormal EKG. Sepsis. MEASUREMENTS: 2D Measurements: RV - 4.0 cm LV - 6.0 cm Septum 1.2 cm Posterior wall 1.2 cm Aortic root 3.6 cm Ascending aorta 3.8 cm LA - 4.6 cm LVEF 20-25% Doppler Measurements: AV - 1.51 m/s LVOT - 0.96 m/s MV-E 121, A 155, E/E ratio 0.8 Early mitral deceleration 149 msec E prime medial 5.1 A prime medial 6.9 E prime lateral 5 Average E/E prime ratio 24/PCWP 31.6 mmHg PV - 0.85 m/s Pulmonary artery acceleration time 109 msec PASP 34 mmHg IVC - 2.0 cm COMMENTS: Normal sinus rhythm with left bundle branch block. M-mode and 2-dimensional echocardiography was performed with pulse, continuous wave, color flow, and tissue Doppler studies. At least moderately dilated left ventricle with borderline symmetrical left ventricular hypertrophy. Paradoxical septal motion and apical akinesis likely related to left bundle branch block. Other left ventricular wall segments were somewhat hypokinetic. Moderately dilated left atrium with grade 1 LV diastolic dysfunction and significantly elevated estimated mean left atrial pressure. Right heart chamber sizes were upper limits of normal with normal right ventricular free wall motion and Doppler evidence of mild pulmonary hypertension. Normal IVC size and collapse against an elevated central venous pressure. Normal aortic root size with slightly dilated ascending aorta. Mild aortic valvular sclerosis without stenosis, but degree of premature cusp closure in keeping with reduced forward stroke volume. Mild degenerative changes of his mitral valvular apparatus with "low flow" appearance to leaflet excursion, but no posterior systolic buckling. Very mild to mild mitral insufficiency. Normal appearing tricuspid valve with trace insufficiency. No apparent intracardiac mass or pericardial effusion.
[2021-06-17] MEDS: SIMVASTATIN 40 MG TAB PO SCH (21:29)
[2021-06-17 22:00] VITALS: BP 126/75
[2021-06-18] MEDS: **hydrALAZINE** 50 MG TAB PO SCH ×3 (05:48→21:00)
[2021-06-18] MEDS: LEVOTHYROXINE 50MCG TABLET (0.05MG) PO SCH (05:56)
[2021-06-18] MEDS: CALCIUM/VITAMIN D 500 MG TAB PO SCH (05:56)
[2021-06-18] MEDS: ASPIRIN 325 MG TAB PO SCH (05:56)
[2021-06-18] MEDS: FEBUXOSTAT 40 MG TABLET (ULORIC) PO SCH (05:56)
[2021-06-18] MEDS: VENLAFAXINE **XR** 37.5 MG CAPSULE PO SCH (05:57)
[2021-06-18] MEDS: METOPROLOL TART 25 MG TABLET PO SCH ×2 (05:57→21:34)
[2021-06-18] MEDS: HEPARIN SOD (PORCINE) 5000UNITS/ML 1ML VIAL/SYRINGE SC SCH ×2 (05:57→21:34)
[2021-06-18 06:00] VITALS: BP 116/52
[2021-06-18] MEDS: HumaLOG INSULIN (NovoLOG) PER UNIT SC SCH ×4 (07:30→21:00)
[2021-06-18 07:34] LABS: BASO # 0.1 10^3/uL (0.0-0.2); BASO % 0.6 % (0.0-1.0); EOS # 0.3 10^3/uL (0.0-0.5); EOS % 2.8 % (0.0-3.0); HEMATOCRIT 28.8 % (42.0-52.0); HEMOGLOBIN 9.7 g/dl (13.5-17.5); LYMPH # 1.4 10^3/uL (1.5-5.0); LYMPH % 13.3 % (24.0-44.0); MEAN CORPUSCULAR HEMOGLOBIN 33.2 pg (27.0-33.0); MEAN CORPUSCULAR HGB CONC 33.7 g/dl (32.0-36.5); MEAN CORPUSCULAR VOLUME 98.6 fl (80.0-96.0); MONO # 0.6 10^3/uL (0.0-0.8); NEUTROPHILS # 8.3 10^3/uL (1.5-8.5); NEUTROPHILS % 76.8 % (36.0-66.0); PLATELET COUNT, AUTOMATED 209 10^3/uL (150-450); RED BLOOD COUNT 2.92 10^6/uL (4.30-6.10); WHITE BLOOD COUNT 10.7 10^3/uL (4.0-10.0)
[2021-06-18 07:57] LABS: BILIRUBIN,TOTAL 0.7 MG/DL (0.2-1.0); GLOMERULAR FILTRATION RATE 12.2 (>42); MAGNESIUM LEVEL 1.9 MG/DL (1.8-2.4); POTASSIUM SERUM 4.2 MEQ/L (3.5-5.1); TOTAL PROTEIN 5.6 GM/DL (6.4-8.2)
[2021-06-18] MEDS: LEVEMIR (INSULIN DETEMIR) 1 UNITS/0.01ML SC SCH ×2 (08:17→21:35)
[2021-06-18 08:36] LABS: VANCOMYCIN RANDOM 22.3 UG/ML
[2021-06-18] MEDS: PERCOCET 5MG/325MG TAB PO PRN ×2 (13:19→21:36)
[2021-06-18] MEDS ORDERED: VANCOMYCIN HCL 750 MG, VIAL MATE ADAPTER 1 EACH in NS 250 ML IV SCH (16:00)
[2021-06-18] MEDS: **VANCO AFTER HD** MISC XX SCH (16:27)
--- NOTE | 2021-06-18 16:37 | IPN ---
PROGRESS NOTE DATE: 06/18/2021 SUBJECTIVE: Mr. Caban is seen this morning on his bedside. He is in the dialysis room right now awaiting to get on the dialysis machine. He is feeling well and denies any new complaints. His left foot dressing has not been opened as of yet. He reports that he is waiting for infectious disease specialist to come and look at his foot for possible antibiotic recommendation. He has no fever or chills. He had amputation of his left big toe two days ago. OBJECTIVE: VITAL SIGNS: Temperature is 98 degrees Fahrenheit, heart rate is 90 per minute and respiratory rate is 18 per minute. Blood pressure is 116/52 mmHg and oxygen saturation is 91% on room air. HEENT: Head is atraumatic. NECK: Supple without JVD or thyroid enlargement. HEART: Heart sounds are regular. LUNGS: Clear to auscultation. CHEST: His dialysis catheter in the right upper chest is intact. EXTREMITIES: No cyanosis or clubbing. Left foot is in the dressing. NEUROLOGIC: He is awake, alert and at his baseline mentation. LABORATORY DATA: Today's labs showed a WBC count of 10.7, hemoglobin is 9.7, and hematocrit is 28.8. A random Vancomycin level is 22.3. Sodium is 138 and potassium is 4.2. BUN is 47 and creatinine is 5.0. Total protein is 5.6 and albumin is 2.0. PROBLEMS: 1. Endstage renal disease. Patient is due for dialysis and he is doing to be dialyzed today. His electrolytes have been stable. Volume status is well-compensated and will try to remove about 1.5 liters of fluid to prevent volume overload. 2. Anemia. His anemia is stable and does not need any urgent intervention. Patient will receive Aranesp 100 mcg once a week. 3. Left big toe gangrene. Patient remains on Vancomycin and his Vancomycin level is appropriate. He will receive the dose after dialysis. 4. Hypertension, blood pressure seems very well-controlled and no changes are being made today.
[2021-06-18] MEDS: ONDANSETRON 4 MG TAB PO PRN (17:10)
--- NOTE | 2021-06-18 18:26 | IPNPDOC ---
Text Note Date of Service The patient was seen on 06/18/21. NOTE Subjective: No any acute events overnight. Patient denied fever, chills, sh ortness of breath, palpitations, nausea, vomiting, diarrhea Objective: GENERAL APPEARANCE: NAD HEENT: no scleral icterus, no JVD, EOMI CARDIOVASCULAR: S1S2 LUNGS: Diminished lung sounds bilaterally ABDOMEN: soft & not tender w palpation MUSCULOSKELETAL: no cyanosis, Left big toe with stage II wound with surrounding erythema INTEGUMENT: no generalized pallor NEUROLOGICAL: cranial nerve function from 2-12 intact, follows commands, speech not dysarthric Assessment/Plan Patient is 70 years old male with past medical history of morbid obesity, history of lung cancer status post chemotherapy and radiation, unknown stage. Hx of renal carcinoma s/p left nephrectomy, end-stage renal disease, BPH, chronic CHF, DM, and gout presented to hospital with left big toe redness. Patient is poor historian. Patient was directly admitted from wildlife biology internship office from [facility], patient was seen by Dr. Fuentes and she recommended to transfer patient for possible left foot metatarsal amputation. Patient stated that he developed erythema with swelling of left big toe a few days ago 1) Wound of left foot/osteomyelitis of left hallux Patient developed left hallux osteomyelitis MRSA was negative, however wound culture came back MRSA positive I restarted vancomycin IV day 2 Dr. Loco did left hallux amputation on 06/16/2021 1 set of blood culture came back positive Staph epidermidis. Second set negative. Repeat blood culture negative Appreciate/agree with ID consult Echo order pending (2) Diabetes type II Glucose level under control Detemir twice daily Insulin sliding scale Diabetes diet HbA1c 8.7 (3) ESRD (end stage renal disease) nephrology team follows him (4) Cellulitis See above (5) Diastolic CHF Not in acute exacerbation I's and O's Hypokalemia Replaced Anemia of chronic renal failure Aranesp per nephrology team No indication for blood transfusion DVT prophylaxis with heparin 5000 twice daily VS,Fishbone, I+O VS, Fishbone, I+O Laboratory Tests 06/18/21 06:42 Vital Signs Date Time Temp Pulse Resp B/P (MAP) Pulse Ox O2 Delivery O2 Flow Rate FiO2 06/18/21 15:43 132/70 06/18/21 13:49 18 06/18/21 06:00 98.1 91 91 Room Air I&O- Last 24 Hours up to 6 AM 06/18/21 06:00 Intake Total 890 ml Output Total 175 ml Balance 715 ml LEIDY PENN DO Jun 18, 2021 18:26
[2021-06-18 20:00] VITALS: BP 124/68
[2021-06-18] MEDS: SIMVASTATIN 40 MG TAB PO SCH (21:34)
[2021-06-18 22:00] VITALS: BP 124/68
--- NOTE | 2021-06-18 22:38 | CR.PDOC ---
General Date of Consultation: Jun 18, 2021 Referring Provider: LEIDY PENN DO Attending Physician: Mayo Moreno MD Consultation REASON FOR CONSULTATION/CHIEF COMPLAINT: Left hallux osteomyelitis and possible bacteremia HISTORY OF PRESENT ILLNESS: Mr. Caban is a 70-year-old male with a h/o DM-II and ESRD who is s/p 2 days after left hallux amputation. He initially saw a small lesion/ulcer on his left hallux near the proximal interphalangeal joint about 1 year ago. He denies drainage, pus, or bleeding at the time. He follows with Dr. Fuentes, aviation electronics technician from [place], who had been providing debridement throughout the year. However, he notes the ulcer had progressively gotten worse, especially in the past 3 weeks in which there was increased pain, pus drainage, erythema, and edema. He was directly admitted from his aviation electronics technician office for left hallux amputation and started on IV Zosyn and vancomycin. His WBC peaked at 11.4 prior to surgery with wound cultures showing MRSA and Acinetobacter Lwoffii. The ulcer was shown to have exposed bone and purulent drainage. Amputation was performed on 06/[address] Forrest. Follow up wound cultures showed MRSA. Zosyn was discontinued, IV va ncomycin was continued. Today, the patient describes no acute changes. He denies fever, chills, night sweats, SOB, chest pain, N/V/D, or pain in his extremities. Dr. Forrest was present during the examination. The dressing was removed and showed a clean amputation without drainage or bleeding. There is some cellulitis present from the site of amputation to the middle of the foot. REVIEW OF SYSTEMS: CONSTITUTIONAL: Denies fever, chills HEENT: Denies headache CARDIOVASCULAR: Denies CP, palpitations RESPIRATORY: Denies SOB, pleuritis pain GENITOURINARY: Denies changes in urination, dysuria, pyuria, hematuria GASTROINTESTINAL: Denies abdominal pain, N/V/D NEUROLOGICAL: Right-sided weakness 2/2 stroke in 2017 ALLERGIES: -Dulaglutide -Sulfa -Clindamycin -Prochlorperazine -Sulfamethoxazole -Trimethoprim -Allopurinol MEDICATIONS: -Vancomycin 750mg IV HD -Aspirin 325mg PO daily -Percocet 5mg/325mg PO Q6HP PRN for pain -Acetaminophen 650mg PO Q4H PRN for pain -Calcium plus Vitamin D 1mg PO daily -Aranesp 100mcg IV with dialysis -Febuxostat 40mg PO daily -Heparin 5000 units SC -Hydralazine 50mg PO TID -Metoprolol tartate 25mg PO BID -ISS with hypoglycemic protocol -Levothyroxine 50mcg PO daily. -Simvastatin 40mg PO QPM -Venlafaxine 37.5mg PO daily -Zosyn 2.25 gm IV q.8 hourly; discontinued PAST MEDICAL HISTORY: -Left hallux osteomyelitis -Chronic diabetic ulcers -HTN -DM type II -ESRD on hemodialysis -H/o renal cell carcinoma s/p left nephrectomy in 2014 -H/o metastatic lung cancer s/p chemoradiation and radiation in 2014 -Gout -HFrEF -Chronic anemia -Secondary hypothyroidism of renal origin -Liver cirrhosis 2/2 [place] -Stroke in 2016 -Right-sided weakness 2/2 Stroke -Obesity -BPH -H/o left proximal humeral fracture PAST SURGICAL HISTORY: -Left hallux amputation -Appendectomy -Left nephrectomy -B/l inguinal hernia repair -Arm surgery -Permacath -AV fistula creation SOCIAL HISTORY: Marital status and/or living arrangements: and living alone now; 1 year ago Children: 2 sons, 3 daughters; daughter comes to check in on him 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 GENERAL APPEARANCE: Patient is a well-appearing male sitting upright in the bed in no acute distress. HEENT: NC, AT. Mucus membranes moist. Non-injected conjunctiva. Sclera are non- icteric. CHEST: Dialysis port present in upper right chest. RESPIRATORY: Clear to auscultation bilaterally. No obvious wheezing, rales, or rhonchi appreciated. CARDIOVASCULAR: Slightly tachycardic rate. Regular rhythm. Normal S1, S2 heard. No obvious murmurs, rubs, or gallops appreciated. ABDOMEN: Positive bowel sounds. Non-tender to palpation in all quadrants. EXTREMITIES: Clean amputation of left hallux wound closed; no drainage or bleeding present with sutures neatly in place. The edges of the amputation appear purple. It is warm to touch, erythematous, and edematous half way up the foot. 2+ radial, dorsalis pedis, and posterior tibialis pulses bilaterally. NEUROLOGICAL: No focal deficits appreciated. PSYCHIATRIC: Mood appears stable. Became emotional when speaking about his . LABORATORY DATA: WBC 10.7; RBC 2.92; Hgb 9.7; Hct 28.8; Plt count 209; Neut % 76.8; ESR 107; Lactic acid 1.2; CRP 12.40; Cr 5.00; MRSA PCR negative MICROBIOLOGY: 06/14/21 Preliminary Blood Culture (08/26): No growth after 72 hours 06/14/21 Final Blood Culture (09/26): Staphylococcus epidermidis 06/14/21 Final Wound Culture: MRSA, Acinetobacter lwoffii 06/16/21 Final Wound Culture: MRSA, no anaerobic growth 06/16/21 Preliminary Blood Culture (08/26): No growth after 48 hours 06/16/21 Preliminary Blood Culture (09/26): No growth after 48 hours PATHOLOGY: 06/18/21 Fingers/toes, amputation PENDING IMAGIN06/18/21 Echocardiogram: No apparent valvular vegetations reported IMPRESSION: #Left hallux osteomyelitis -Patient was diagnosed with left hallux osteomyelitis by his aviation electronics technician, Dr. Fuentes. It showed bone with purulent drainage and surrounding erythema and edema. He is s/p left hallux amputation by Dr. Forrest and biopsy was sent to pathology and pending. Pre- and post-operative cultures showed MRSA growth. First blood culture on 06/14 with Staph epidermidis is a contaminant. Follow up blood cultures are negative. Will continue with IV vancomycin while inpatient. #Left foot cellulitis s/p left hallux osteomyelitis and amputation -There appears to be cellulitis originating from the site of amputation to mcc up the foot. The skin is warm to touch, erythematous, edematous, but non-tender to palpation. The patient is currently on hemodialysis 2/2 ESRD on MWF. Will ask Dr. Kaufman, nephrology, if 2 additional doses of IV vancomycin could be administered through the dialysis port on Fri and Fri to continue treatment for cellulitis present on left foot. PLAN: -Continue IV vancomycin while inpatient, if patient ready for discharge-Will discuss with Dr. Kaufman to administer 2 additional doses of vancomycin during patient's next dialysis on Fri and Fri. Do not treat acinetobacter likely was skin colonization Vital Signs/I&O Vital Signs Date Time Temp Pulse Resp B/P (MAP) Pulse Ox O2 Delivery O2 Flow Rate FiO2 06/18/21 15:43 132/70 06/18/21 13:49 18 06/18/21 06:00 98.1 91 91 Room Air I&O- Last 24 Hours up to 6 AM 06/18/21 06:00 Intake Total 890 ml Output Total 175 ml Balance 715 ml Laboratory Data Labs 24H Laboratory Tests 2 06/18/21 06:42: Immature Granulocyte % (Auto) 0.5, Neutrophils (%) (Auto) 76.8H, Lymphocytes (%) (Auto) 13.3L, Monocytes (%) (Auto) 6.0, Eosinophils (%) (Auto) 2.8, Basophils (%) (Auto) 0.6, Neutrophils # (Auto) 8.3, Lymphocytes # (Auto) 1.4L, Monocytes # (Auto) 0.6, Eosinophils # (Auto) 0.3, Basophils # (Auto) 0.1, Nucleated Red Blood Cells % (auto) 0.0, Anion Gap 7L, Glomerular Filtration Rate 12.2L, Calcium Level 8.0L, Magnesium Level 1.9, Total Bilirubin 0.7, Aspartate Amino Transf (AST/SGOT) 39H, Alanine Aminotransferase (ALT/SGPT) 41, Alkaline Phosphatase 182H, Total Protein 5.6L, Albumin 2.0L, Albumin/Globulin Ratio 0.6, Random Vancomycin Level 22.3 06/18/21 15:00: Bedside Glucose (Misc Panel) 84 06/18/21 15:53: Erythrocyte Sedimentation Rate 107H, C-Reactive Protein, Quantitative 12.40H 06/18/21 17:04: Bedside Glucose (Misc Panel) 134H 06/18/21 20:49: Bedside Glucose (Misc Panel) 200H CBC/BMP Laboratory Tests 06/18/21 06:42 Microbiology Microbiology 06/16/21 Blood Culture - Preliminary, Resulted No Growth after 48 hours. All Specime... 06/16/21 Blood Culture - Preliminary, Resulted No Growth after 48 hours. All Specime... 06/16/21 Gram Stain - Final, Complete 06/16/21 Wound Culture - Final, Complete Staph.aureus Methicillin Resis 06/16/21 Anaerobic Culture - Final, Complete 06/14/21 Wound Culture - Final, Complete Staph.aureus Methicillin Resis Acinetobacter Lwoffii 06/14/21 Blood Culture - Final, Complete Staphylococcus Epidermidis 06/14/21 Blood Culture - Preliminary, Resulted No Growth after 72 hours. All specime... Allergies Coded Allergies: dulaglutide (Verified Allergy, Severe, shortness of breath, 12/28/20) Sulfa (Sulfonamide Antibiotics) (Verified Allergy, Intermediate, rash, 12/28/20) clindamycin (Verified Allergy, Unknown, 12/28/20) prochlorperazine (Verified Allergy, Unknown, 12/28/20) sulfamethoxazole (Verified Allergy, Unknown, 12/28/20) trimethoprim (Verified Allergy, Unknown, 12/28/20) allopurinol (Verified Adverse Reaction, Intermediate, involuntary movement, 12/28/20) Home Medications Scheduled Acetaminophen (Acetaminophen) 500 Mg Tablet, 1,000 MG PO TID for 10 Days, #30 Aspirin (Aspirin) 325 Mg Tablet, 325 MG PO DAILY, (Reported) Calcium Carbonate/Vitamin D3 (Calcium 500-Vit D3 400 Tablet) 1 Each Tablet, 1 TAB PO DAILY, (Reported) Febuxostat (Febuxostat) 40 Mg Tablet, 40 MG PO DAILY, (Reported) Hydralazine HCl (Hydralazine HCl) 50 Mg Tablet, 50 MG PO TID, (Reported) Insulin Glargine (Lantus) 100 Unit/1 Ml Vial, 20 UNITS SC QAM, (Reported) Insulin Human Lispro (Humalog) 100 Unit/1 Ml Vial, 1 DOSE SC AC, (Reported) PER SLIDING SCALE Levothyroxine Sodium (Levothyroxine Sodium) 50 Mcg Tablet, 50 MCG PO DAILY, (Reported) Morphine Sulfate (Morphine Sulfate ER) 30 Mg Tablet.er, 15 MG PO BID for 5 Days, #10 Multivitamins (Thera M Plus Tablet) 1 Each Tablet, 1 TAB PO DAILY, (Reported) [place]-3 Fatty Acids/Fish Oil (Fish Oil 1,000 mg Capsule) 1 Each Capsule, 1,000 MG PO QHS, (Reported) Simvastatin (Simvastatin) 40 Mg Tablet, 40 MG PO QPM, (Reported) Venlafaxine HCl (Venlafaxine HCl ER) 37.5 Mg Cap.er.24h, 37.5 MG PO DAILY, (Reported) Scheduled PRN Morphine Sulfate (Morphine Sulfate) 30 Mg Tablet, 15 MG PO Q4HP PRN for SEVERE PAIN (PS 8-10) for 5 Days, #30 GME ATTESTATION GME ATTESTATION My faculty preceptor for this patient encounter was physically present during the encounter and was fully available. All aspects of the patient interview, examination, medical decision making process, and medical care plan development were reviewed and approved by the faculty preceptor. The faculty preceptor is aware and concurs with the plan as stated in the body of this note and will attest to such by his/her cosignature. SHERRIE FARIAS OMS-3 Jun 18, 2021 22:34 Mayo Moreno MD Jun 19, 2021 20:25
[2021-06-19] MEDS: LEVOTHYROXINE 50MCG TABLET (0.05MG) PO SCH (05:52)
[2021-06-19 06:00] VITALS: BP 86/53
[2021-06-19] MEDS: HumaLOG INSULIN (NovoLOG) PER UNIT SC SCH ×2 (07:30→13:25)
[2021-06-19 07:50] VITALS: BP 132/74
[2021-06-19 08:23] LABS: BASO # 0.1 10^3/uL (0.0-0.2); BASO % 0.7 % (0.0-1.0); EOS # 0.3 10^3/uL (0.0-0.5); EOS % 3.5 % (0.0-3.0); HEMATOCRIT 28.1 % (42.0-52.0); HEMOGLOBIN 9.2 g/dl (13.5-17.5); LYMPH % 14.6 % (24.0-44.0); MEAN CORPUSCULAR HEMOGLOBIN 33.1 pg (27.0-33.0); MEAN CORPUSCULAR HGB CONC 32.7 g/dl (32.0-36.5); MEAN CORPUSCULAR VOLUME 101.1 fl (80.0-96.0); MONO # 0.5 10^3/uL (0.0-0.8); MONO % 7.5 % (2.0-8.0); NEUTROPHILS # 5.2 10^3/uL (1.5-8.5); PLATELET COUNT, AUTOMATED 200 10^3/uL (150-450); RED BLOOD COUNT 2.78 10^6/uL (4.30-6.10); WHITE BLOOD COUNT 7.1 10^3/uL (4.0-10.0)
[2021-06-19] MEDS: ASPIRIN 325 MG TAB PO SCH (08:41)
[2021-06-19] MEDS: VENLAFAXINE **XR** 37.5 MG CAPSULE PO SCH (08:41)
[2021-06-19] MEDS: HEPARIN SOD (PORCINE) 5000UNITS/ML 1ML VIAL/SYRINGE SC SCH (08:41)
[2021-06-19] MEDS: LEVEMIR (INSULIN DETEMIR) 1 UNITS/0.01ML SC SCH (08:41)
[2021-06-19 08:42] VITALS: BP 150/78
[2021-06-19] MEDS: CALCIUM/VITAMIN D 500 MG TAB PO SCH (08:42)
[2021-06-19] MEDS: **hydrALAZINE** 50 MG TAB PO SCH (08:42)
[2021-06-19] MEDS: METOPROLOL TART 25 MG TABLET PO SCH (08:42)
[2021-06-19 08:43] LABS: ALBUMIN 1.9 GM/DL (3.2-5.2); BILIRUBIN,TOTAL 0.4 MG/DL (0.2-1.0); CALCIUM LEVEL 8.1 MG/DL (8.8-10.2); CREATININE FOR GFR 3.8 MG/DL (0.70-1.30); GLOMERULAR FILTRATION RATE 16.8 (>42); POTASSIUM SERUM 4.1 MEQ/L (3.5-5.1); TOTAL PROTEIN 5.3 GM/DL (6.4-8.2)
[2021-06-19] MEDS: FEBUXOSTAT 40 MG TABLET (ULORIC) PO SCH (08:47)
[2021-06-19] MEDS ORDERED: MORPHINE 30 MG TAB **MSIR PO PRN (10:55)
[2021-06-19] MEDS ORDERED: SENOKOT S TAB PO PRN (10:55)
[2021-06-19] MEDS ORDERED: ACETAMINOPHEN 500 MG TAB PO SCH (11:00)
[2021-06-19] MEDS ORDERED: MSIR30TA PO (11:08)
[2021-06-19] MEDS ORDERED: ACET-683 PO (11:08)
[2021-06-19] MEDS ORDERED: MORP30TASA PO (11:08)
[2021-06-19] MEDS ORDERED: PILL CUTTER 1 EACH XX PRN (11:10)
[2021-06-19] MEDS ORDERED: MORPHINE 15 MG SA TAB PO ONE (11:15)
--- NOTE | 2021-06-19 14:15 | IPN ---
PROGRESS NOTE DATE: 06/19/2021 SUBJECTIVE: Mr. Caban is seen this morning on his bedside. He is feeling well and denies any new complaints. He was dialyzed yesterday and he tolerated dialysis well. He reports that the dressing was changed on his left foot and he was also seen by infectious disease. He remains on vancomycin due to a history of MRSA. PHYSICAL EXAMINATION: Temperature 97.8 degrees Fahrenheit, heart rate 80 per minute and respiratory rate 16 per minute. Blood pressure 132/74 mmHg and oxygen saturation 95% on room air. Head: Atraumatic. Neck: Supple and without JVD or thyroid enlargement. Chest: Hemodialysis catheter is present in the right upper chest. Heart: Sounds are regular. Lungs: Clear to auscultation. Abdomen: Soft and nontender and bowel sounds are normal. Extremities: Without any cyanosis or clubbing. He has an AV fistula in the right upper arm which has not been used as yet. His left foot is in a dressing Neurologically: He is awake, alert and at his baseline mentation. LABORATORY DATA: Today's labs show: WBC count 7.1, hemoglobin 9.2 and hematocrit 28.1. Sodium 140, potassium 4.1, CO2 27, BUN 29, creatinine 3.8, glucose 132, calcium 8. C-reactive protein was 12.4 yesterday. His wound culture came back positive for MRSA. PROBLEMS/PLAN: 1. End-stage renal disease: Patient was dialyzed yesterday and next dialysis is due on June 20. There is no emergent need for dialysis today. 2. Anemia: At present his anemia is stable and we will continue to manage it with dialysis. 3. Osteomyelitis of left big toe: Patient had his toe amputated and he is on vancomycin after dialysis. I have been asked to arrange for outpatient vancomycin in dialysis. 4. Disposition: Patient is likely to be discharged later today. We will arrange for outpatient dialysis tomorrow and he will also receive vancomycin in dialysis.
--- NOTE | 2021-06-19 19:41 | DS.PDOC ---
Discharge Summary General Date of Admission Jun 14, 2021 at 16:00 Date of Discharge 06/19/21 Discharge Summary DICTATED DISCHARGE SUMMARY JOB # [id number] Vital Signs/I&Os Vital Signs Date Time Temp Pulse Resp B/P (MAP) Pulse Ox O2 Delivery O2 Flow Rate FiO2 06/19/21 08:42 85 06/19/21 08:42 150/78 06/19/21 06:00 97.8 16 95 Room Air I&O- Last 24 Hours up to 6 AM 06/19/21 06:00 Intake Total 310 ml Output Total 2500 ml Balance -2190 ml Laboratory Data Labs 24H Laboratory Tests 2 06/18/21 20:49: Bedside Glucose (Misc Panel) 200H 06/19/21 06:58: Immature Granulocyte % (Auto) 0.7, Neutrophils (%) (Auto) 73.0H, Lymphocytes (%) (Auto) 14.6L, Monocytes (%) (Auto) 7.5, Eosinophils (%) (Auto) 3.5H, Basophils (%) (Auto) 0.7, Neutrophils # (Auto) 5.2, Lymphocytes # (Auto) 1.0L, Monocytes # (Auto) 0.5, Eosinophils # (Auto) 0.3, Basophils # (Auto) 0.1, Nucleated Red Blood Cells % (auto) 0.0, Anion Gap 6L, Glomerular Filtration Rate 16.8L, Calcium Level 8.1L, Magnesium Level 2.0, Total Bilirubin 0.4, Aspartate Amino Transf (AST/SGOT) 23, Alanine Aminotransferase (ALT/SGPT) 32, Alkaline Phosphatase 171H, Total Protein 5.3L, Albumin 1.9L, Albumin/Globulin Ratio 0.6 06/19/21 08:34: Bedside Glucose (Misc Panel) 103 06/19/21 12:08: Bedside Glucose (Misc Panel) 155H CBC/BMP Laboratory Tests 06/19/21 06:58 FSBS Laboratory Tests Test 06/18/21 20:49 06/19/21 08:34 06/19/21 12:08 Range/Units Bedside Glucose (Misc Panel) 200 103 155 83-110 MG/DL Microbiology Microbiology 06/16/21 Blood Culture - Preliminary, Resulted No Growth after 72 hours. All specime... 06/16/21 Blood Culture - Preliminary, Resulted No Growth after 72 hours. All specime... 06/16/21 Gram Stain - Final, Complete 06/16/21 Wound Culture - Final, Complete Staph.aureus Methicillin Resis 06/16/21 Anaerobic Culture - Final, Complete 06/14/21 Wound Culture - Final, Complete Staph.aureus Methicillin Resis Acinetobacter Lwoffii 06/14/21 Blood Culture - Final, Complete Staphylococcus Epidermidis 06/14/21 Blood Culture - Final, Complete NO GROWTH AFTER 5 DAYS Discharge Medications Scheduled Acetaminophen (Acetaminophen) 500 Mg Tablet, 1,000 MG PO TID Aspirin (Aspirin) 325 Mg Tablet, 325 MG PO DAILY, (Reported) Calcium Carbonate/Vitamin D3 (Calcium 500-Vit D3 400 Tablet) 1 Each Tablet, 1 TAB PO DAILY, (Reported) Febuxostat (Febuxostat) 40 Mg Tablet, 40 MG PO DAILY, (Reported) Hydralazine HCl (Hydralazine HCl) 50 Mg Tablet, 50 MG PO TID, (Reported) Insulin Glargine (Lantus) 100 Unit/1 Ml Vial, 20 UNITS SC QAM, (Reported) Insulin Human Lispro (Humalog) 100 Unit/1 Ml Vial, 1 DOSE SC AC, (Reported) PER SLIDING SCALE Levothyroxine Sodium (Levothyroxine Sodium) 50 Mcg Tablet, 50 MCG PO DAILY, (Reported) Morphine Sulfate (Morphine Sulfate ER) 30 Mg Tablet.er, 15 MG PO BID Multivitamins (Thera M Plus Tablet) 1 Each Tablet, 1 TAB PO DAILY, (Reported) Pollock-3 Fatty Acids/Fish Oil (Fish Oil 1,000 mg Capsule) 1 Each Capsule, 1,000 MG PO QHS, (Reported) Simvastatin (Simvastatin) 40 Mg Tablet, 40 MG PO QPM, (Reported) Venlafaxine HCl (Venlafaxine HCl ER) 37.5 Mg Cap.er.24h, 37.5 MG PO DAILY, (Reported) Scheduled PRN Morphine Sulfate (Morphine Sulfate) 30 Mg Tablet, 15 MG PO Q4HP PRN for SEVERE PAIN (PS 8-10) Allergies Coded Allergies: dulaglutide (Verified Allergy, Severe, shortness of breath, 12/28/20) Sulfa (Sulfonamide Antibiotics) (Verified Allergy, Intermediate, rash, 12/28/20) clindamycin (Verified Allergy, Unknown, 12/28/20) prochlorperazine (Verified Allergy, Unknown, 12/28/20) sulfamethoxazole (Verified Allergy, Unknown, 12/28/20) trimethoprim (Verified Allergy, Unknown, 12/28/20) allopurinol (Verified Adverse Reaction, Intermediate, involuntary movement, 12/28/20) KYLAH NAIK MD Jun 19, 2021 19:41
[2021-06-19] MEDS ORDERED: MORPHINE 15 MG SA TAB PO SCH (21:00)
== END 2021-06-19 14:15 | disposition home health service (06) | DRG 617 ==
LOC: EEVIPCON 16:00 → M MSPAV 16:00
PROVIDERS: ADMIT Internal Medicine; ATTEND General Practice
PROC: 5A1D70Z Performance of Urinary Filtration, Intermittent, Less than 6 Hours Per Day (ICD-10-PCS; 2021-06-15)
PROC: 0Y6Q0Z3 Detachment at Left 1st Toe, Low, Open Approach (ICD-10-PCS; principal; 2021-06-16 08:30)
DX: E11.69 Type 2 diabetes mellitus with other specified complication (principal); M86.172 Other acute osteomyelitis, left ankle and foot; I50.32 Chronic diastolic (congestive) heart failure; L03.116 Cellulitis of left lower limb; L03.032 Cellulitis of left toe; L97.524 Non-pressure chronic ulcer of other part of left foot with necrosis of bone; E66.9 Obesity, unspecified; N18.6 End stage renal disease; E11.22 Type 2 diabetes mellitus with diabetic chronic kidney disease; N40.0 Benign prostatic hyperplasia without lower urinary tract symptoms; E11.621 Type 2 diabetes mellitus with foot ulcer; N25.81 Secondary hyperparathyroidism of renal origin; B95.62 Methicillin resistant Staphylococcus aureus infection as the cause of diseases classified elsewhere; D63.1 Anemia in chronic kidney disease; Z66 Do not resuscitate; M10.9 Gout, unspecified; E87.6 Hypokalemia; Z79.4 Long term (current) use of insulin; Z79.899 Other long term (current) drug therapy; Z88.1 Allergy status to other antibiotic agents; Z88.2 Allergy status to sulfonamides; Z85.528 Personal history of other malignant neoplasm of kidney; Z90.5 Acquired absence of kidney; Z85.118 Personal history of other malignant neoplasm of bronchus and lung; Z92.21 Personal history of antineoplastic chemotherapy; Z92.3 Personal history of irradiation; Z79.82 Long term (current) use of aspirin; Z90.49 Acquired absence of other specified parts of digestive tract; Z99.2 Dependence on renal dialysis; Z68.31 Body mass index [BMI] 31.0-31.9, adult

== ENCOUNTER → 2021-07-03 | Outpatient (CLI) | payer MEDICARE, BC ==
[~2021-07-03] MED LIST changes: +ACET-683 PO; +FEBU40TA2 PO; +ISOVUE-300 61% 50ML VIAL As Ordered ONE; +LIDOCAINE 1% MDV 20ML VIAL As Ordered ONE; +MIDAZOLAM INJ 2MG/2ML VIAL (J2250 PER 1MG) As Ordered ONE; +MORP30TASA PO; +MSIR30TA PO; +NS 1,000 ML IV ONE; +VENL37.598 PO; +ceFAZolin 1GM VIAL (J0690 PER 500MG) As Ordered ONE; +ceFAZolin SOD 1 GM in D5W MINI-BAG PLUS 50 ML IV ONE; +fentaNYL 100 MCG/2 ML INJECTION (J3010) As Ordered ONE
[2021-07-03 10:39] LABS: INR 1.12; PROTHROMBIN TIME 14.8 SECONDS (12.7-14.5)
--- NOTE | 2021-07-03 12:00 | ROOPDOC ---
[facility], [place] Report Of Operation Report of Operation DATE OF PROCEDURE: 07/03/21 PREPROCEDURE DIAGNOSES: End-stage renal disease, on hemodialysis, through right internal jugular vein permacatheter. Inability to access the right brachiobasilic AV fistula, due to inadequate maturation. Swelling of the entire right upper extremity suggestive of central venous stenosis POSTPROCEDURE DIAGNOSES: : End-stage renal disease, on hemodialysis, through right internal jugular vein permacatheter. Inability to access the right brachiobasilic AV fistula, due to inadequate maturation-due to stenosis of the a rterial aspect of the AV fistula. Swelling of the entire right upper extremity due to central venous stenosis PROCEDURE PERFORMED: Right arm fistulogram, balloon angioplasty of the right subclavian vein and innominate veins using 12 x 40 & 12 x 80 Dupree balloons and 14 x 40 mm [place] balloon. Balloon angioplasty of the arterial aspect of the brachiobasilic AV fistula, and the arterial anastomosis, using 6 x 100 Manny balloon SURGEON: Kait Holder MD ADJUNCT BUSINESS INSTRUCTOR: None ANESTHESIA: Local ESTIMATED BLOOD LOSS: Approximately 10 mL. COMPLICATIONS: None FINDINGS: 1. Patent right arm brachiobasilic AV fistula, with severe (90% )focal stenosis of the central right subclavian vein, and right innominate vein, with presence of the right internal jugular vein permacatheter. 2. Severe 90% long segment stenosis of the arterial aspect of the brachiobasilic AV fistula, spanning about 6-7 cm from the arterial anastomosis. 3. Successful balloon angioplasty of both arterial and venous stenosis, with no residual stenoses and good inflow and outflow through the AV fistula SPECIMENS REMOVED: None PROCEDURE NOTE: Indication for the procedure: The patient is a 70-year-old gentleman, who has been on hemodialysis, through a right internal jugular vein, catheter, since 06/2020. In 07/2020, he had creation of the right brachiobasilic AV fistula, which was transposed in December 2020. However this f istula could not be accessed successfully for hemodialysis, resulting in frequent infiltrations. More recently he also developed significant swelling of the entire right upper extremity. Hence the above-mentioned procedure is being performed. Informed consent was obtained to the patient for the procedure, after explaining the risks and complications of the procedure, which include but are not limited to bleeding, infection, cardiorespiratory complications, rupture of the vein, recurrent stenosis and failure of the fistula, requiring additional procedures, ischemic complications to the etc. Alternatives to the procedure including nonoperative treatment and its consequences were explained. The patient understood and agreed. DESCRIPTION OF PROCEDURE: The patient was placed supine on the angiographic table. The right arm and chest were cleaned and draped in a sterile fashion. A timeout was performed. After administering local anesthesia with 1% lidocaine, on the ultrasound guidance, the right brachiobasilic AV fistula was accessed in a venous facing manner, with a micropuncture needle, and exchanged to 4 Green[place]ic micro sheath. Initial fistulogram was performed through the micro sheath. Findings as mentioned above. It was decided to treat the central venous stenosis. The micro sheath was exchanged to a 7 [place]ic sheath stiff Glidewire which was used to cross the right subclavian and innominate vein stenoses. Initially 12 x 40 and 12 x 80 mm Dupree balloons were used to balloon angioplasty the stenoses. Subsequently a 14 x 40 mm [place] balloon was used to balloon angioplasty the stenosis, after which the stenotic area improved, with less than 30% residual stenosis and good venous outflow across the right subclavian and innominate veins. Imaging of the arterial aspect of the AV fistula was performed, with the balloon inflated in the central aspect of the AV fistula. This revealed the long diffuse severe stenosis of the arterial aspect of the AV fistula. The 7 [place]landic sheath was removed, the sheath access site was secured with 3-0 Vicryl pursestring suture. Under ultrasound guidance, the fistula was again accessed in an arterial facing manner, using the micropuncture kit. The micro sheath was then exchanged with a 5 [place]ic sheath. The glide wire that was positioned in the brachial artery, through the arterial phase and sheath was then exchanged to 0.018 inch advantage Glidewire, and 6x100 mm Manny balloon was used to balloon angioplasty the arterial anastomosis, as well as the arterial aspect of the AV fistula. Prolonged inflations lasting up to 2 minutes were performed. Completion fistulogram revealed complete resolution of the stenosis of the arterial segment of the AV fistula, with good inflow. The 5 [place] sheath was removed and the sheath access site was secured with 3-0 Vicryl pursestring suture. Dry dressings were placed. The patient's radial pulse was +1 palpable. His hand was warm. The fistula was well palpable and was marked on the skin. The fistula may be accessed for hemodialysis from tomorrow -if it is successfully accessed, then we will plan permacath removal in the next couple of weeks. If it still cannot be accessed successfully, the permacath will have to be removed, with repeat balloon angioplasty of the central veins, +/-revision of the arterial aspect of AV fistula Kait Holder MD Jul 03, 2021 12:00
[2021-07-03 12:23] VITALS: BP 141/76
== END ==
LOC: M IRPRO 08:29
PROVIDERS: ATTEND Surgery Vascular Surgery
DX: T82.590A Other mechanical complication of surgically created arteriovenous fistula, initial encounter (principal); N18.6 End stage renal disease; Z99.2 Dependence on renal dialysis
CPT/HCPCS: 36902; 36907; 85610; 86850; 86900; 86901; C1725; C1729; C1769; C1887; C1894; J0690; J1644; Q9967

== ENCOUNTER → 2021-07-10 | Outpatient (CLI) | payer MEDICARE, BC ==
[~2021-07-10] MED LIST changes: -ISOVUE-300 61% 50ML VIAL As Ordered ONE; -LIDOCAINE 1% MDV 20ML VIAL As Ordered ONE; -MIDAZOLAM INJ 2MG/2ML VIAL (J2250 PER 1MG) As Ordered ONE; -NS 1,000 ML IV ONE; -ceFAZolin 1GM VIAL (J0690 PER 500MG) As Ordered ONE; -ceFAZolin SOD 1 GM in D5W MINI-BAG PLUS 50 ML IV ONE; -fentaNYL 100 MCG/2 ML INJECTION (J3010) As Ordered ONE
--- NOTE | 2021-07-10 11:09 | REP ---
INDICATION: PAD W/ ULCERS COMPARISON: None. TECHNIQUE: Real time faulkner scale and color Doppler evaluation of the bilateral lower extremity arterial vasculature using linear high frequency transducer. FINDINGS: Faulkner scale and color images demonstrate moderate bilateral atheromatous plaquing. Right lower extremity demonstrates primarily triphasic and biphasic wave patterns with the exception of monophasic wave patterns through the proximal posterior tibial artery and distal peroneal artery. Of note, there is 2:1 stenosis in the mid anterior tibial artery. Left lower extremity demonstrates primarily triphasic and biphasic wave patterns with the exception of monophasic wave pattern through the distal posterior tibial artery. Of note, there is 2:1 stenosis in the proximal anterior tibial artery. Peak systolic velocities (cm/sec) Common femoral artery: Right 86.1; Left 79.7 Profunda femoris: Right 75.2; Left 77.1 SFA (proximal): Right 66.8; Left 71.3 SFA (mid): Right 71.3; Left 66.8 SFA (distal): Right 58.5; Left 59.8 Popliteal artery: Right 72.6; Left 60.8 Tibioperoneal trunk: Right 25.1; Left 84.2 MARINE FUEL DOCK ATTENDANT (prox.): Right 43.1; Left 37.3 MARINE FUEL DOCK ATTENDANT (distal): Right 72.6; Left 27.0 Peroneal (prox.): Right 30.2; Left 48.2 Peroneal (distal): Right 43.1; Left not visualized LAVON (prox.): Right 54.6; Left 147.8 LAVON (distal): Right 112.5; Left 46.8 IMPRESSION: 1. Diffuse moderate atheromatous plaquing noted bilaterally. 2. 2:1 stenosis noted in the right mid anterior tibial artery and left proximal anterior tibial artery. <Electronically signed by Jl Diehl > 07/10/21 [id number]
== END ==
LOC: M RAD 08:51
PROVIDERS: ATTEND Surgery Vascular Surgery
DX: N18.6 End stage renal disease (principal); I70.202 Unspecified atherosclerosis of native arteries of extremities, left leg; L97.522 Non-pressure chronic ulcer of other part of left foot with fat layer exposed

== ENCOUNTER → 2021-07-24 | Outpatient (POV) | payer MEDICARE, BC ==
[~2021-07-24] VITALS: Ht 185.4 cm; Wt 104.2 kg
[2021-07-24 14:15] VITALS: BP 131/70
== END ==
LOC: M IRPOV 14:05
PROVIDERS: ATTEND Radiology Diagnostic Radiology
DX: T87.89 Other complications of amputation stump (principal); I70.202 Unspecified atherosclerosis of native arteries of extremities, left leg; E11.9 Type 2 diabetes mellitus without complications; Z79.82 Long term (current) use of aspirin; Z79.890 Hormone replacement therapy; Z79.899 Other long term (current) drug therapy; Z86.73 Personal history of transient ischemic attack (TIA), and cerebral infarction without residual deficits; Z88.1 Allergy status to other antibiotic agents; Z88.2 Allergy status to sulfonamides; Z88.8 Allergy status to other drugs, medicaments and biological substances

== ENCOUNTER → 2021-07-31 | Outpatient (CLI) | payer MEDICARE, BC ==
[~2021-07-31] MED LIST changes: +LIDOCAINE 1% MDV 20ML VIAL As Ordered ONE; +LIDOCAINE W/EPINEPHRINE 1% 20ML VIAL As Ordered ONE
--- NOTE | 2021-07-31 10:21 | ROOPDOC ---
[facility] Report Of Operation Report of Operation DATE OF PROCEDURE: 07/31/21 PREPROCEDURE DIAGNOSES: End-stage renal disease, on hemodialysis through the right arm AV fistula POSTPROCEDURE DIAGNOSES: End-stage renal disease, on hemodialysis through the right arm AV fistula PROCEDURE PERFORMED: Removal of right internal jugular vein permacatheter SURGEON: Kait Holder MD ADMINISTRATIVE AND PROGRAM SPECIALIST: None ANESTHESIA: Local-1% lidocaine ESTIMATED BLOOD LOSS: None COMPLICATIONS: None FINDINGS: Occluded catheter SPECIMENS REMOVED: Permacatheter PROCEDURE NOTE: Informed consent was obtained from the patient. The right side of the neck and the chest were cleaned and draped in sterile fashion, including the catheter. A timeout was performed. After administering local anesthesia with 1% lidocaine, at the exit site, the catheter cuff was dissected bluntly with a hemostat, and the permacatheter was removed completely. Manual pressure was applied to the vein access site and the exit site, till hemostasis was achieved, and dry dressing was applied. The patient tolerated the procedure well and was hemodynamically stable throughout Kait Holder MD Jul 31, 2021 10:21
[2021-07-31 10:43] VITALS: BP 127/67
== END ==
LOC: M IRPRO 09:35
PROVIDERS: ATTEND Surgery Vascular Surgery
DX: Z45.2 Encounter for adjustment and management of vascular access device (principal); N18.6 End stage renal disease; Z99.2 Dependence on renal dialysis

== ENCOUNTER → 2021-08-01 | Outpatient (CLI) | payer MEDICARE, BC ==
[~2021-08-01] MED LIST changes: +ISOVUE-300 61% 50ML VIAL As Ordered ONE; -LIDOCAINE W/EPINEPHRINE 1% 20ML VIAL As Ordered ONE; +MIDAZOLAM INJ 2MG/2ML VIAL (J2250 PER 1MG) As Ordered ONE; +NITROGLYCERIN IN D5W 25MG/250ML (100MCG/ML) As Ordered ONE; +NS 1,000 ML IV SCH; +ONDANSETRON 4MG/2ML VIAL As Ordered ONE; +ONDANSETRON 4MG/2ML VIAL IV PRN; +PERCOCET 5MG/325MG TAB PO PRN; +diphenhydrAMINE 50MG/ML VIAL (J1200) As Ordered ONE; +fentaNYL 100 MCG/2 ML INJECTION (J3010) As Ordered ONE
--- NOTE | 2021-08-01 11:14 | IRHP ---
[facility] IR Pre-Procedure H & P General Date of Service: Aug 01, 2021 Procedure: Same Day Surgery Interval History and Physical I have seen the patient and reviewed last H & P performed within 30 days. There is no significant interval change. History of Present Illness Chief Complaint The patient is a 70-year-old male admitted with a reason for visit of PAD. PRE-PROCEDURE DIAGNOSIS: PAD HEART: Normal rate. LUNGS: Normal breathing at rest. ASA Classification ASA Classification: III-Severe systemic dis. Mallampati Score: II NPO: Yes Problems with prior sedation: No Obstructive Sleep Apnea: No Plan moderate sedation Allergies Coded Allergies: dulaglutide (Verified Allergy, Severe, shortness of breath, 12/28/20) Sulfa (Sulfonamide Antibiotics) (Verified Allergy, Intermediate, rash, 12/28/20) clindamycin (Verified Allergy, Unknown, 12/28/20) prochlorperazine (Verified Allergy, Unknown, 12/28/20) sulfamethoxazole (Verified Allergy, Unknown, 12/28/20) trimethoprim (Verified Allergy, Unknown, 12/28/20) allopurinol (Verified Adverse Reaction, Intermediate, involuntary mo vement, 12/28/20) Home Medications Scheduled Aspirin (Aspirin), 325 MG PO DAILY, (Reported) Calcium Carbonate/Vitamin D3 (Calcium 500-Vit D3 400 Tablet), 1 TAB PO DAILY, ( Reported) Febuxostat (Febuxostat), 40 MG PO DAILY, (Reported) Hydralazine HCl (Hydralazine HCl), 50 MG PO TID, (Reported) Insulin Glargine (Lantus), 20 UNITS SC QAM, (Reported) Insulin Human Lispro (Humalog), 1 DOSE SC AC, (Reported) Levothyroxine Sodium (Levothyroxine Sodium), 50 MCG PO DAILY, (Reported) Multivitamins (Thera M Plus Tablet), 1 TAB PO DAILY, (Reported) Raymond-3 Fatty Acids/Fish Oil (Fish Oil 1,000 mg Capsule), 1,000 MG PO QHS, (Reported) Simvastatin (Simvastatin), 40 MG PO QPM, (Reported) Venlafaxine HCl (Venlafaxine HCl ER), 37.5 MG PO DAILY, (Reported) Discontinued Medications Acetaminophen (Acetaminophen), 1,000 MG PO TID Discontinued Reason: Pt states not taking Morphine Sulfate (Morphine Sulfate), 15 MG PO Q4HP PRN for SEVERE PAIN (PS 8-10) Discontinued Reason: Pt states not taking Morphine Sulfate (Morphine Sulfate ER), 15 MG PO BID Discontinued Reason: Pt states not taking MELISSA SENA MD Aug 01, 2021 11:14
[2021-08-01 18:30] VITALS: BP 123/63
--- NOTE | 2021-08-02 16:10 | IRPON ---
IR Postoperative Note Date Of Procedure: Aug 01, 2021 Time Of Procedure: 16:00 IR Postoperative Note IR Left leg angiogram IR Left below-knee runoff arteriogram. IR Ultrasound-guided right common femoral artery access. IR Left posterior tibial artery recanalization. IR Left posterior tibial artery angioplasty. IR Left anterior tibial artery recanalization. IR Left anterior tibial artery angioplasty. IR Moderate sedation. Clinical Information:Left lower extremity nonhealing hallux amputation site. Physician: Dr. Becker. Procedure: The patient was advised of the benefits, risks, and alternatives of the procedure and informed consent was obtained. A time out was performed with verification of the patient's name, MRN, site of procedure, and type of procedure to be performed. The patient was positioned in the supine position on the angiographic table. The site was prepped and draped in the usual sterile fashion. Moderate sedation was performed by the physician including the presence of an independent trained RN, who assisted in monitoring the patient's level of consciousness and physiological status. Following the administration of fentanyl and Versed, the physician spent 120 minutes of continuous [id number] time with the patient. A captain cannery tender radiograph reveals no gross abnormality. Ultrasound of the right groin demonstrates patent right common femoral artery. Lidocaine was used for local anesthesia. The right common femoral artery was accessed, under ultrasound guidance with a microintroducer set. A short 0.018" Conway wire was inserted under fluoroscopy guidance, and the needle was exchanged for a 4 Fr microintroducer sheath. The guidewire and dilator were removed and a 0.035" Bentson wire was advanced under fluoroscopy guidance, and positioned in the abdominal aorta. A 7 Fr sheath was placed over the wire. An Omni Flush catheter was advanced over the wire, under fluoroscopy guidance and used to catheterize the infrarenal abdominal aorta. A pelvic arteriogram was performed and this demonstrates, unremarkable infrarenal abdominal aorta. Patent bilateral common iliac, internal iliac and external iliac arteries. There is generalized delayed flow of contrast in a pulsatile fashion, likely related to the heart. A wire was advanced through the flush catheter and used under fluoroscopy guidance to, gain up and over access into the left external iliac artery. The catheter was removed over the wire. A glide cath was advanced over the wire, under fluoroscopy guidance and used to catheterize the left external iliac artery. A left lower extremity angiogram was performed. This demonstrates patent left common femoral artery, superficial femoral artery and profunda femoris. Further angiography of the left lower extremity was performed and this demonstrates patent proximal, mid and distal superficial femoral artery. Patent proximal, mid and distal popliteal artery. A left below-knee runoff arteriogram was performed and this demonstrates, occluded left posterior tibial artery. Occluded left anterior tibial artery. Single peroneal artery outflow to the left foot. A wire was advanced through the catheter, under fluoroscopy guidance and positioned in the superficial femoral artery. The catheter was removed over the wire. The short sheath was exchanged over the wire for a 7 [place] Islander long sheath. The tip of the long sheath was positioned in the left common femoral artery. The 035 wire was exchanged for an 018 fathom wire. An 018 [place] catheter was advanced under fluoroscopy guidance, over the wire and used to catheterize the distal left popliteal artery. A repeat below-knee runoff arteriogram was performed and this demonstrates multifocal occlusions in the anterior tibial artery and complete long segment occlusion of the mid posterior tibial artery. There is reconstitution of the distal posterior tibial artery and calcaneal branches from the peroneal artery. There are multifocal occlusions throughout the anterior tibial artery. The patent peroneal artery is patent to the ankle, thereafter bifurcates and reconstitutes the calcaneal and plantar branches of the posterior tibial artery and dorsalis pedis. Incomplete pedal loop and microvascular disease in the left foot. The 018 [place] catheter in conjunction with the fathom wire was used under fluoroscopy guidance to selectively recanalize the occluded left posterior tibial artery. Intermittent injection of contrast confirmed intraluminal location. After successful catheterization of the distal left posterior tibial artery, a superselective left foot angiogram was performed. This demonstrates antegrade flow within the calcaneal and plantar branches of the posterior tibial artery. The [place] catheter was removed over the wire. A 2.5 x 220 mm Manny balloon was then advanced over the wire, under fluoroscopy guidance and positioned in the mid and distal posterior tibial artery. Angioplasty was performed. Heparin was administered. The balloon was then deflated. A post angioplasty follow-up arteriogram was performed from the groin sheath and this demonstrates successful recanalization of the left posterior tibial artery with good antegrade flow. No vessel spasm, extravasation or distal emboli. Continuation arteriogram to the left foot was performed and this demonstrates good antegrade flow in the left posterior tibial artery, continuous into the left foot, supplying calcaneal and plantar branches. The balloon was removed over the wire. The 018 [place] catheter in conjunction with a wire, was then used under fluoroscopy guidance to catheterize the anterior tibial artery. The catheter in conjunction with the wire was used to superselectively catheterize the distal left anterior tibial artery. Intermittent injection of contrast confirmed intraluminal location. With the catheter tip in the distal left anterior tibial artery, A pedal angiogram was performed. This demonstrates antegrade flow from the distal anterior tibial artery. The catheter was removed over the wire. A 2.5 x 220 mm Manny balloon was then advanced over the wire, under fluoroscopy guidance and positioned in the proximal, mid and distal anterior tibial artery. Angioplasty was performed. Heparin was administered. The balloon was deflated. A post angioplasty follow-up arteriogram was performed through the groin sheath, tip located in the left common femoral artery. This demonstrates antegrade flow in the proximal left anterior tibial artery but spasm in the mid and distal left anterior tibial artery. Repeat angioplasty of the left anterior tibial artery was then performed. Nitroglycerin was administered. After repeat angioplasty of the left anterior tibial artery, the microcatheter was retracted and a follow-up arteriogram was performed from the proximal left anterior tibial artery. This demonstrates good antegrade flow in the proximal, mid and distal left anterior tibial artery, with no vessel cutoff, extravasation or distal emboli. Catheter, wire and sheath were removed. The long sheath was exchanged over the wire, under fluoroscopy guidance for a short sheath. A 7 [place] Islander Mynx device was used to close the right groin arteriotomy. Pressure held and hemostasis achieved. A sterile dressing was applied to the site. The patient tolerated the procedure well and was returned to the PRU in stable condition. EBL: < 5 mL. Complications:None. Impression: 1. Left leg angiogram demonstrates overall diffuse slow flow in a pulsatile fashion, likely related to the heart. 2. Patent inflow to the left lower extremity. 3. 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 4. Successful recanalization of the left posterior tibial artery and angioplasty. 5. Successful angioplasty of the left anterior tibial artery with improved flow to the left foot. 6. 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 . Thank you for this referral CC MELISSA Jenkins MD Aug 02, 2021 16:10
== END ==
LOC: M IRPRO 10:03
PROVIDERS: ATTEND Radiology Diagnostic Radiology
DX: T87.89 Other complications of amputation stump (principal); I70.245 Atherosclerosis of native arteries of left leg with ulceration of other part of foot; Z79.4 Long term (current) use of insulin; Z79.82 Long term (current) use of aspirin; Z79.890 Hormone replacement therapy; Z79.899 Other long term (current) drug therapy; Z88.1 Allergy status to other antibiotic agents; Z88.2 Allergy status to sulfonamides; Z88.8 Allergy status to other drugs, medicaments and biological substances
CPT/HCPCS: 37228; 37232; 99152; 99153; C1725; C1760; C1769; C1887; C1894; J1644; J2250; J2405; J3010; Q9967

== ENCOUNTER 2021-11-23 20:13 | Inpatient (IN) | payer MEDICARE, BC ==
[~2021-11-23] VITALS: Ht 185.4 cm; Wt 104.7 kg
[~2021-11-23 20:13] MED LIST changes: +CALC-175 PO; -ISOVUE-300 61% 50ML VIAL As Ordered ONE; -LIDOCAINE 1% MDV 20ML VIAL As Ordered ONE; -MIDAZOLAM INJ 2MG/2ML VIAL (J2250 PER 1MG) As Ordered ONE; -NITROGLYCERIN IN D5W 25MG/250ML (100MCG/ML) As Ordered ONE; -NS 1,000 ML IV SCH; -ONDANSETRON 4MG/2ML VIAL As Ordered ONE; -ONDANSETRON 4MG/2ML VIAL IV PRN; -OYST500T25 PO; -PERCOCET 5MG/325MG TAB PO PRN; -diphenhydrAMINE 50MG/ML VIAL (J1200) As Ordered ONE; -fentaNYL 100 MCG/2 ML INJECTION (J3010) As Ordered ONE
[2021-11-23] MEDS: HumaLOG INSULIN (NovoLOG) PER UNIT SC SCH (21:00)
[2021-11-23] MEDS: SIMVASTATIN 40 MG TAB PO SCH (21:00)
[2021-11-23 21:52] LABS: BASO % 0.5 % (0.0-1.0); EOS # 0.3 10^3/uL (0.0-0.5); EOS % 3.4 % (0.0-3.0); HEMATOCRIT 27.3 % (42.0-52.0); HEMOGLOBIN 9.4 g/dl (13.5-17.5); LYMPH # 0.8 10^3/uL (1.5-5.0); LYMPH % 9.6 % (24.0-44.0); MEAN CORPUSCULAR HEMOGLOBIN 33.7 pg (27.0-33.0); MEAN CORPUSCULAR HGB CONC 34.4 g/dl (32.0-36.5); MEAN CORPUSCULAR VOLUME 97.8 fl (80.0-96.0); MONO # 0.8 10^3/uL (0.0-0.8); MONO % 9.6 % (2.0-8.0); NEUTROPHILS # 6.4 10^3/uL (1.5-8.5); NEUTROPHILS % 76.5 % (36.0-66.0); PLATELET COUNT, AUTOMATED 147 10^3/uL (150-450); RED BLOOD COUNT 2.79 10^6/uL (4.30-6.10); WHITE BLOOD COUNT 8.4 10^3/uL (4.0-10.0)
[2021-11-23 22:02] LABS: INR 1.19; PROTHROMBIN TIME 15.5 SECONDS (12.7-14.5)
[2021-11-23 22:03] LABS: PARTIAL THROMBOPLASTIN TIME 37.7 SECONDS (25.9-37.0)
[2021-11-23 22:13] LABS: ERYTHROCYTE SEDIMENTATION RATE 70 mm/hr (0-20)
[2021-11-23 22:17] LABS: C REACTIVE PROTEIN QUANTITATIV 10.3 MG/DL (0.00-0.30); CALCIUM LEVEL 8.1 MG/DL (8.8-10.2); CREATININE FOR GFR 3.76 MG/DL (0.70-1.30); POTASSIUM SERUM 4.2 MEQ/L (3.5-5.1)
[2021-11-23] MEDS ORDERED: ASPI81TA26 PO (23:13)
[2021-11-23] MEDS ORDERED: HOME MED LIST COMPLETE! XX SCH (23:15)
[2021-11-23] MEDS ORDERED: PIPERACILLIN/TAZOBACTAM SOD 3.375 GM in D5W MINI-BAG PLUS 50 ML IV ONE (23:55)
[2021-11-23] MEDS ORDERED: HEPARIN SOD (PORCINE) 5000UNITS/ML 1ML VIAL/SYRINGE IV PRN (23:55)
[2021-11-23] MEDS ORDERED: VANCOMYCIN HCL 2,000 MG in IV FLUID PLACE HOLDER 1 EA IV ONE (23:55)
[2021-11-24] MEDS ORDERED: HEPARIN DRIP 25,000 UNITS in IV 1 EA IV SCH ×2
[2021-11-24] MEDS ORDERED: VANCOMYCIN HCL 1,000 MG, VIAL MATE ADAPTER 1 EACH in NS 250 ML IV SCH ×2 (00:15→18:00)
[2021-11-24] MEDS ORDERED: ACETAMINOPHEN TAB 650MG DOSE (2X325MG) PO PRN (00:50)
[2021-11-24] MEDS ORDERED: GLUCOSE 4GM CHEW TABLET PO PRN (00:55)
[2021-11-24] MEDS ORDERED: GLUCAGON INJ 1MG VIAL SC PRN (00:55)
[2021-11-24] MEDS ORDERED: DEXTROSE 50% 50 ML SYRINGE IV PRN (00:55)
[2021-11-24 00:56] LABS: RSV AMPLIFICATION NEGATIVE (NEGATIVE)
[2021-11-24] MEDS ORDERED: VANCOMYCIN HCL 1,000 MG, VIAL MATE ADAPTER 1 EACH in NS 250 ML IV ONE ×4 (01:00)
[2021-11-24 02:15] VITALS: BP 121/91
[2021-11-24 04:25] VITALS: BP 100/56
[2021-11-24 06:10] LABS: C REACTIVE PROTEIN QUANTITATIV 8.49 MG/DL (0.00-0.30)
[2021-11-24] MEDS: LEVOTHYROXINE 50MCG TABLET (0.05MG) PO SCH (06:27)
[2021-11-24] MEDS: HumaLOG INSULIN (NovoLOG) PER UNIT SC SCH ×4 (07:30→19:43)
[2021-11-24 07:33] VITALS: BP 119/66
[2021-11-24] MEDS: LEVEMIR (INSULIN DETEMIR) 1 UNITS/0.01ML SC SCH (08:37)
[2021-11-24] MEDS: VENLAFAXINE **XR** 37.5 MG CAPSULE PO SCH (08:46)
[2021-11-24] MEDS: PIPERACILLIN/TAZOBACTAM SOD 2.25 GM in D5W MINI-BAG PLUS 50 ML IV SCH ×2 (08:46→16:33)
[2021-11-24 08:47] LABS: BASO # 0.1 10^3/uL (0.0-0.2); BASO % 0.7 % (0.0-1.0); EOS # 0.4 10^3/uL (0.0-0.5); EOS % 5.7 % (0.0-3.0); LYMPH # 1.1 10^3/uL (1.5-5.0); LYMPH % 15.3 % (24.0-44.0); MEAN CORPUSCULAR HEMOGLOBIN 33.8 pg (27.0-33.0); MEAN CORPUSCULAR HGB CONC 34.6 g/dl (32.0-36.5); MEAN CORPUSCULAR VOLUME 97.7 fl (80.0-96.0); MONO # 0.6 10^3/uL (0.0-0.8); MONO % 8.5 % (2.0-8.0); NEUTROPHILS % 69.4 % (36.0-66.0); PLATELET COUNT, AUTOMATED 147 10^3/uL (150-450); RED BLOOD COUNT 2.66 10^6/uL (4.30-6.10); WHITE BLOOD COUNT 7.2 10^3/uL (4.0-10.0)
[2021-11-24] MEDS ORDERED: ASPIRIN 81MG ENTERIC TABLET PO SCH ×2 (09:00→12:25)
[2021-11-24] MEDS ORDERED: **hydrALAZINE** 50 MG TAB PO SCH ×2 (09:00→12:25)
[2021-11-24 09:03] LABS: CALCIUM LEVEL 7.9 MG/DL (8.8-10.2); CREATININE FOR GFR 4.14 MG/DL (0.70-1.30); GLOMERULAR FILTRATION RATE 15.2 (>42); POTASSIUM SERUM 4.1 MEQ/L (3.5-5.1)
[2021-11-24] MEDS ORDERED: DICL500C PO (09:57)
[2021-11-24] MEDS ORDERED: ASPI325T49 PO (09:57)
[2021-11-24] MEDS ORDERED: ACETAMINOPHEN 500 MG TAB PO PRN (12:25)
[2021-11-24] MEDS: ASPIRIN ENTERIC 325 MG TAB PO SCH (12:32)
[2021-11-24 13:18] LABS: BASO % 0.7 % (0.0-1.0); EOS # 0.4 10^3/uL (0.0-0.5); HEMATOCRIT 24.4 % (42.0-52.0); HEMOGLOBIN 8.4 g/dl (13.5-17.5); LYMPH # 0.8 10^3/uL (1.5-5.0); LYMPH % 12.7 % (24.0-44.0); MEAN CORPUSCULAR HEMOGLOBIN 33.6 pg (27.0-33.0); MEAN CORPUSCULAR HGB CONC 34.4 g/dl (32.0-36.5); MEAN CORPUSCULAR VOLUME 97.6 fl (80.0-96.0); MONO # 0.5 10^3/uL (0.0-0.8); MONO % 7.7 % (2.0-8.0); NEUTROPHILS # 4.4 10^3/uL (1.5-8.5); NEUTROPHILS % 72.6 % (36.0-66.0); PLATELET COUNT, AUTOMATED 133 10^3/uL (150-450); WHITE BLOOD COUNT 6.1 10^3/uL (4.0-10.0)
[2021-11-24 13:45] LABS: CALCIUM LEVEL 7.5 MG/DL (8.8-10.2); CREATININE FOR GFR 4.64 MG/DL (0.70-1.30); GLOMERULAR FILTRATION RATE 13.3 (>42)
[2021-11-24 16:13] VITALS: BP 100/63
[2021-11-24] MEDS: **hydrALAZINE HCL** 25 MG TAB PO SCH ×2 (16:35→20:01)
[2021-11-24 19:55] VITALS: BP 105/55
[2021-11-24] MEDS: SIMVASTATIN 40 MG TAB PO SCH (20:05)
[2021-11-25] MEDS: PIPERACILLIN/TAZOBACTAM SOD 2.25 GM in D5W MINI-BAG PLUS 50 ML IV SCH ×2 (00:56→09:56)
[2021-11-25 04:05] VITALS: BP 114/64
[2021-11-25 05:31] LABS: HEMATOCRIT 24.8 % (42.0-52.0); HEMOGLOBIN 8.5 g/dl (13.5-17.5); MEAN CORPUSCULAR HEMOGLOBIN 33.9 pg (27.0-33.0); MEAN CORPUSCULAR HGB CONC 34.3 g/dl (32.0-36.5); MEAN CORPUSCULAR VOLUME 98.8 fl (80.0-96.0); PLATELET COUNT, AUTOMATED 128 10^3/uL (150-450); RED BLOOD COUNT 2.51 10^6/uL (4.30-6.10); WHITE BLOOD COUNT 5.3 10^3/uL (4.0-10.0)
[2021-11-25] MEDS: LEVOTHYROXINE 50MCG TABLET (0.05MG) PO SCH (06:00)
[2021-11-25 06:01] LABS: ALBUMIN 2.3 GM/DL (3.2-5.2); BILIRUBIN,TOTAL 0.5 MG/DL (0.2-1.0); CALCIUM LEVEL 7.7 MG/DL (8.8-10.2); CREATININE FOR GFR 5.38 MG/DL (0.70-1.30); GLOMERULAR FILTRATION RATE 11.2 (>42); MAGNESIUM LEVEL 2.5 MG/DL (1.8-2.4); TOTAL PROTEIN 5.8 GM/DL (6.4-8.2)
[2021-11-25 07:27] VITALS: BP 114/64
[2021-11-25 08:07] VITALS: BP 114/64
[2021-11-25] MEDS: **hydrALAZINE HCL** 25 MG TAB PO SCH (08:07)
[2021-11-25] MEDS ORDERED: DOXY-350 PO (08:26)
[2021-11-25] MEDS: VENLAFAXINE **XR** 37.5 MG CAPSULE PO SCH (09:56)
[2021-11-25] MEDS: ASPIRIN ENTERIC 325 MG TAB PO SCH (09:56)
[2021-11-25] MEDS: LEVEMIR (INSULIN DETEMIR) 1 UNITS/0.01ML SC SCH (09:57)
[2021-11-25] MEDS: HumaLOG INSULIN (NovoLOG) PER UNIT SC SCH (09:57)
[2021-11-25] MEDS ORDERED: **VANCO AFTER HD** MISC XX SCH (16:00)
[2021-11-30] MEDS ORDERED: DARBEPOETIN 100 MCG/0.5 ML *DIALYSIS* SYRINGE (J0882) IV SCH (09:00)
== END 2021-11-25 11:53 | disposition home health service (06) | DRG 564 ==
LOC: M ED 20:13 → M ED INP 23:54 → M PCU 11-24 02:12
PROVIDERS: ADMIT Family Medicine; ATTEND General Practice
PROC: 0JBR3ZZ Excision of Left Foot Subcutaneous Tissue and Fascia, Percutaneous Approach (ICD-10-PCS; principal; 2021-11-24)
DX: T87.44 Infection of amputation stump, left lower extremity (principal); N18.6 End stage renal disease; I13.2 Hypertensive heart and chronic kidney disease with heart failure and with stage 5 chronic kidney disease, or end stage renal disease; L03.116 Cellulitis of left lower limb; I50.22 Chronic systolic (congestive) heart failure; E03.9 Hypothyroidism, unspecified; E11.22 Type 2 diabetes mellitus with diabetic chronic kidney disease; K76.0 Fatty (change of) liver, not elsewhere classified; N40.0 Benign prostatic hyperplasia without lower urinary tract symptoms; Z66 Do not resuscitate; M10.9 Gout, unspecified; E66.9 Obesity, unspecified; K21.9 Gastro-esophageal reflux disease without esophagitis; D64.9 Anemia, unspecified; Z90.5 Acquired absence of kidney; Z90.49 Acquired absence of other specified parts of digestive tract; Z98.41 Cataract extraction status, right eye; Z98.42 Cataract extraction status, left eye; Z89.412 Acquired absence of left great toe; Z86.718 Personal history of other venous thrombosis and embolism; Z85.528 Personal history of other malignant neoplasm of kidney; Z85.118 Personal history of other malignant neoplasm of bronchus and lung; Z92.21 Personal history of antineoplastic chemotherapy; Z92.3 Personal history of irradiation; Z68.30 Body mass index [BMI] 30.0-30.9, adult; Z79.82 Long term (current) use of aspirin; Z99.2 Dependence on renal dialysis; Z79.899 Other long term (current) drug therapy; Z79.4 Long term (current) use of insulin; Z88.1 Allergy status to other antibiotic agents; Z88.2 Allergy status to sulfonamides; Z88.8 Allergy status to other drugs, medicaments and biological substances; Y83.8 Other surgical procedures as the cause of abnormal reaction of the patient, or of later complication, without mention of misadventure at the time of the procedure

== ENCOUNTER 2021-11-26 19:24 | Emergency (ER) | payer MEDICARE, BC ==
[~2021-11-26] VITALS: Ht 185.4 cm; Wt 108.0 kg
[~2021-11-26 19:24] MED LIST changes: +ASPI325T49 PO; +ASPI81TA26 PO; +DICL500C PO; +DOXY-350 PO
[2021-11-26 20:45] VITALS: O2SAT 97
[2021-11-26 21:01] LABS: BASO % 0.3 % (0.0-1.0); EOS # 0.2 10^3/uL (0.0-0.5); EOS % 3.8 % (0.0-3.0); HEMATOCRIT 25.7 % (42.0-52.0); HEMOGLOBIN 9.1 g/dl (13.5-17.5); LYMPH # 0.7 10^3/uL (1.5-5.0); LYMPH % 11.7 % (24.0-44.0); MEAN CORPUSCULAR HEMOGLOBIN 34.5 pg (27.0-33.0); MEAN CORPUSCULAR HGB CONC 35.4 g/dl (32.0-36.5); MEAN CORPUSCULAR VOLUME 97.3 fl (80.0-96.0); MONO # 0.5 10^3/uL (0.0-0.8); MONO % 7.2 % (2.0-8.0); NEUTROPHILS # 4.8 10^3/uL (1.5-8.5); NEUTROPHILS % 76.5 % (36.0-66.0); PLATELET COUNT, AUTOMATED 164 10^3/uL (150-450); RED BLOOD COUNT 2.64 10^6/uL (4.30-6.10); WHITE BLOOD COUNT 6.3 10^3/uL (4.0-10.0)
[2021-11-26 21:34] LABS: CALCIUM LEVEL 8.2 MG/DL (8.8-10.2); CREATININE FOR GFR 3.56 MG/DL (0.70-1.30); GLOMERULAR FILTRATION RATE 18.1 (>42); POTASSIUM SERUM 3.6 MEQ/L (3.5-5.1); THYROID STIMULATING HORMONE 3.53 uIU/ML (0.358-3.740)
[2021-11-26 22:40] LABS: RSV AMPLIFICATION NEGATIVE (NEGATIVE)
[2021-11-26 23:45] VITALS: BP 137/68
== END 2021-11-26 23:57 | disposition home or self-care (01) ==
LOC: M ED 19:24
DX: S09.90XA Unspecified injury of head, initial encounter (principal); W01.0XXA Fall on same level from slipping, tripping and stumbling without subsequent striking against object, initial encounter; R91.8 Other nonspecific abnormal finding of lung field; I11.0 Hypertensive heart disease with heart failure; I50.9 Heart failure, unspecified; E11.9 Type 2 diabetes mellitus without complications; N18.6 End stage renal disease; Z79.4 Long term (current) use of insulin; Z79.01 Long term (current) use of anticoagulants; Z79.82 Long term (current) use of aspirin; Z88.1 Allergy status to other antibiotic agents; Z88.2 Allergy status to sulfonamides; Z88.8 Allergy status to other drugs, medicaments and biological substances; Z99.2 Dependence on renal dialysis; Y92.9 Unspecified place or not applicable; Y93.9 Activity, unspecified; Y99.9 Unspecified external cause status

== ENCOUNTER → 2021-11-27 | Outpatient (REF) | payer MEDICARE, BC | LOC: M LAB REF 11:21 | PROVIDERS: ATTEND Podiatrist Foot & Ankle Surgery | DX: L03.116 Cellulitis of left lower limb (principal) ==

== ENCOUNTER → 2022-01-15 | Outpatient (CLI) | payer MEDICARE, BC ==
[~2022-01-15] MED LIST changes: +ISOVUE-370 76% 100ML VIAL As Ordered ONE
== END ==
LOC: M RAD 09:58
PROVIDERS: ATTEND Physician Assistant
DX: I70.213 Atherosclerosis of native arteries of extremities with intermittent claudication, bilateral legs (principal)
CPT/HCPCS: 75635; Q9967

== ENCOUNTER 2022-02-04 14:34 | Emergency (ER) | payer MEDICARE, BC ==
[~2022-02-04] VITALS: Ht 188 cm; Wt 103.6 kg
[~2022-02-04 14:34] MED LIST changes: -ISOVUE-370 76% 100ML VIAL As Ordered ONE
[2022-02-04 15:42] LABS: BASO % 0.3 % (0.0-1.0); EOS # 0.1 10^3/uL (0.0-0.5); EOS % 1.3 % (0.0-3.0); HEMATOCRIT 34.8 % (42.0-52.0); HEMOGLOBIN 11.6 g/dl (13.5-17.5); LYMPH # 0.7 10^3/uL (1.5-5.0); MEAN CORPUSCULAR HEMOGLOBIN 33.8 pg (27.0-33.0); MEAN CORPUSCULAR HGB CONC 33.3 g/dl (32.0-36.5); MEAN CORPUSCULAR VOLUME 101.5 fl (80.0-96.0); MONO # 0.4 10^3/uL (0.0-0.8); MONO % 4.7 % (2.0-8.0); NEUTROPHILS # 6.3 10^3/uL (1.5-8.5); NEUTROPHILS % 84.2 % (36.0-66.0); RED BLOOD COUNT 3.43 10^6/uL (4.30-6.10); WHITE BLOOD COUNT 7.5 10^3/uL (4.0-10.0)
[2022-02-04 16:06] LABS: CK-MB VALUE MASS 3.8 NG/ML (<3.6); MB/CK RELATIVE INDEX 7.6 (< OR =4)
[2022-02-04 16:14] LABS: ACETAMINOPHEN LEVEL < 2.0 UG/ML (10.0-30.0); ALBUMIN 2.9 GM/DL (3.2-5.2); ALT/SGPT 33 U/L (12-78); BILIRUBIN,DIRECT 0.2 MG/DL (0.0-0.2); BILIRUBIN,TOTAL 0.4 MG/DL (0.2-1.0); BLOOD UREA NITROGEN 82 MG/DL (7-18); CALCIUM LEVEL 9.3 MG/DL (8.8-10.2); CARBON DIOXIDE LEVEL 30 MEQ/L (21-32); CHLORIDE LEVEL 98 MEQ/L (98-107); CREATININE FOR GFR 6.71 MG/DL (0.70-1.30); ETHYL ALCOHOL (ETHANOL) < 0.003 % (0.000-0.010); GLOMERULAR FILTRATION RATE 8.7 (>42); GLUCOSE, FASTING 172 MG/DL (70-100); POTASSIUM SERUM 6.1 MEQ/L (3.5-5.1); SALICYLATE LEVEL 2.2 MG/DL (5.0-30.0); SODIUM LEVEL 135 MEQ/L (136-145); TOTAL PROTEIN 6.6 GM/DL (6.4-8.2)
[2022-02-04 16:15] LABS: PLATELET COUNT, AUTOMATED 91 10^3/uL (150-450)
[2022-02-04] MEDS ORDERED: PATIROMER SORBITEX CALCIUM 8.4 GM POWDER PACKET (VELTASSA) PO ONE (16:40)
[2022-02-04 17:20] LABS: RSV AMPLIFICATION NEGATIVE (NEGATIVE)
[2022-02-04 18:00] VITALS: BP 97/71
== END 2022-02-04 19:37 | disposition home or self-care (01) ==
LOC: M ED 14:34 → EDBD 14:34 → M ED 19:37
DX: U07.1 COVID-19 (principal); N18.6 End stage renal disease; R26.9 Unspecified abnormalities of gait and mobility; E87.5 Hyperkalemia; Z99.2 Dependence on renal dialysis; I44.7 Left bundle-branch block, unspecified; E11.9 Type 2 diabetes mellitus without complications; I10 Essential (primary) hypertension; I50.30 Unspecified diastolic (congestive) heart failure; E78.5 Hyperlipidemia, unspecified; E07.9 Disorder of thyroid, unspecified; G47.33 Obstructive sleep apnea (adult) (pediatric); I69.351 Hemiplegia and hemiparesis following cerebral infarction affecting right dominant side; K21.9 Gastro-esophageal reflux disease without esophagitis; K75.81 Nonalcoholic steatohepatitis (NASH); Z85.118 Personal history of other malignant neoplasm of bronchus and lung; Z85.05 Personal history of malignant neoplasm of liver; Z92.3 Personal history of irradiation; Z88.1 Allergy status to other antibiotic agents; Z88.2 Allergy status to sulfonamides; Z88.8 Allergy status to other drugs, medicaments and biological substances; Z79.899 Other long term (current) drug therapy; Z79.890 Hormone replacement therapy; Z79.82 Long term (current) use of aspirin; Z79.4 Long term (current) use of insulin

== ENCOUNTER 2022-02-06 13:43 | Outpatient (CLI) | payer MEDICARE, BC ==
[~2022-02-06 13:43] MED LIST changes: +ALBUTEROL SULFATE 2.5 MG/0.5 ML INH NEB SOLN INH PRN; +EPINEPHrine INJ 1 MG/ML 1ML AMP IM PRN; +diphenhydrAMINE 50MG/ML VIAL (J1200) IV PRN
[2022-02-06] MEDS ORDERED: BEBTELOVIMAB 175MG 2ML VIAL (EUA) IV ONE (15:00)
== END 2022-02-06 15:29 | disposition left against medical advice (07) ==
LOC: M OPCLI4PR 13:43 → M 4MAIN 13:50 → M OPCLI4PR 15:29
PROVIDERS: ATTEND Internal Medicine
DX: Z53.9 Procedure and treatment not carried out, unspecified reason (principal)

== ENCOUNTER 2022-02-08 15:09 | Inpatient (IN) | payer MEDICARE, BC ==
[~2022-02-08] VITALS: Ht 188 cm; Wt 108.1 kg
[~2022-02-08 15:09] MED LIST changes: -ALBUTEROL SULFATE 2.5 MG/0.5 ML INH NEB SOLN INH PRN; -EPINEPHrine INJ 1 MG/ML 1ML AMP IM PRN; -diphenhydrAMINE 50MG/ML VIAL (J1200) IV PRN
[2022-02-08 19:50] LABS: BASO % 0.3 % (0.0-1.0); EOS # 0.1 10^3/uL (0.0-0.5); EOS % 1.7 % (0.0-3.0); HEMATOCRIT 36.4 % (42.0-52.0); HEMOGLOBIN 12.3 g/dl (13.5-17.5); LYMPH # 0.7 10^3/uL (1.5-5.0); LYMPH % 10.8 % (24.0-44.0); MEAN CORPUSCULAR HEMOGLOBIN 34.5 pg (27.0-33.0); MEAN CORPUSCULAR HGB CONC 33.8 g/dl (32.0-36.5); MONO # 0.4 10^3/uL (0.0-0.8); MONO % 6.3 % (2.0-8.0); NEUTROPHILS # 5.3 10^3/uL (1.5-8.5); NEUTROPHILS % 80.4 % (36.0-66.0); RED BLOOD COUNT 3.57 10^6/uL (4.30-6.10); WHITE BLOOD COUNT 6.6 10^3/uL (4.0-10.0)
[2022-02-08 20:34] LABS: PLATELET COUNT, AUTOMATED 84 10^3/uL (150-450)
[2022-02-08 20:40] LABS: ALBUMIN 2.9 GM/DL (3.2-5.2); BILIRUBIN,DIRECT 0.3 MG/DL (0.0-0.2); BILIRUBIN,TOTAL 0.4 MG/DL (0.2-1.0); CREATININE FOR GFR 5.09 MG/DL (0.70-1.30); FREE T4 1.12 NG/DL (0.76-1.46); POTASSIUM SERUM 4.8 MEQ/L (3.5-5.1); THYROID STIMULATING HORMONE 2.22 uIU/ML (0.358-3.740)
[2022-02-08 22:56] LABS: RSV AMPLIFICATION NEGATIVE (NEGATIVE)
[2022-02-08] MEDS ORDERED: DEXTROSE 50% 50 ML SYRINGE IV PRN (23:15)
[2022-02-08] MEDS ORDERED: GLUCOSE 4GM CHEW TABLET PO PRN (23:15)
[2022-02-08] MEDS ORDERED: GLUCAGON INJ 1MG VIAL SC PRN (23:15)
[2022-02-08] MEDS ORDERED: HEPARIN SOD (PORCINE) 5000UNITS/ML 1ML VIAL/SYRINGE SC SCH (23:15)
[2022-02-09] VITALS (7 sets, daily range): BP systolic 98–178; BP diastolic 65–75; O2SAT 94–98
[2022-02-09] MEDS: cefTRIAXone SOD 1 GM in D5W MINI-BAG PLUS 50 ML IV SCH ×2 (00:23→23:10)
[2022-02-09] MEDS: LEVOTHYROXINE 50MCG TABLET (0.05MG) PO SCH (06:00)
[2022-02-09] MEDS ORDERED: AMIO200T37 PO (07:10)
[2022-02-09] MEDS: INSULIN LISPRO (NovoLOG) PER UNIT SC SCH ×3 (07:30→18:21)
[2022-02-09] MEDS ORDERED: SODIUM CHLORIDE 0.9% 1000ML IV PRN (08:35)
[2022-02-09] MEDS ORDERED: LIDOCAINE 1% SDV 5ML VIAL SC PRN (08:35)
[2022-02-09] MEDS ORDERED: MIDO5TA PO (08:59)
[2022-02-09] MEDS: AMIODARONE 200 MG TAB (PACERONE) PO SCH ×3 (09:00→21:00)
[2022-02-09] MEDS ORDERED: HOME MED LIST COMPLETE! XX SCH (09:00)
[2022-02-09] MEDS: LEVEMIR (INSULIN DETEMIR) 1 UNITS/0.01ML SC SCH (10:03)
[2022-02-09] MEDS: MIDODRINE 5 MG TAB PO SCH ×2 (12:00→16:27)
[2022-02-09] MEDS: VENLAFAXINE **XR** 37.5 MG CAPSULE PO SCH (16:27)
[2022-02-09] MEDS ORDERED: BISACODYL 5 MG TAB PO PRN (22:50)
[2022-02-09] MEDS: DOCUSATE SODIUM 100MG CAPSULE PO SCH (23:10)
[2022-02-09] MEDS: NYSTATIN 100,000 UNITS/GM TOPICAL PWD 15 GM TOP SCH (23:43)
[2022-02-10] VITALS (8 sets, daily range): BP systolic 92–106; BP diastolic 66–72; O2SAT 94–100
[2022-02-10] MEDS: LEVOTHYROXINE 50MCG TABLET (0.05MG) PO SCH (05:50)
[2022-02-10] MEDS: INSULIN LISPRO (NovoLOG) PER UNIT SC SCH ×3 (07:30→16:51)
[2022-02-10 07:33] LABS: HEMATOCRIT 36.4 % (42.0-52.0); HEMOGLOBIN 12.1 g/dl (13.5-17.5); MEAN CORPUSCULAR HEMOGLOBIN 33.9 pg (27.0-33.0); MEAN CORPUSCULAR HGB CONC 33.2 g/dl (32.0-36.5); RED BLOOD COUNT 3.57 10^6/uL (4.30-6.10); WHITE BLOOD COUNT 6.9 10^3/uL (4.0-10.0)
[2022-02-10 07:36] LABS: PLATELET COUNT, AUTOMATED 88 10^3/uL (150-450)
[2022-02-10 07:52] LABS: ERYTHROCYTE SEDIMENTATION RATE 26 mm/hr (0-20)
[2022-02-10 08:14] LABS: C REACTIVE PROTEIN QUANTITATIV 3.41 MG/DL (0.00-0.30); CALCIUM LEVEL 8.7 MG/DL (8.8-10.2); CREATININE FOR GFR 4.51 MG/DL (0.70-1.30); GLOMERULAR FILTRATION RATE 13.7 (>42); MAGNESIUM LEVEL 2.5 MG/DL (1.8-2.4); POTASSIUM SERUM 4.8 MEQ/L (3.5-5.1)
[2022-02-10] MEDS: VENLAFAXINE **XR** 37.5 MG CAPSULE PO SCH (08:37)
[2022-02-10] MEDS: NYSTATIN 100,000 UNITS/GM TOPICAL PWD 15 GM TOP SCH ×2 (08:37→20:58)
[2022-02-10] MEDS: MIDODRINE 5 MG TAB PO SCH ×3 (08:37→16:51)
[2022-02-10] MEDS: DOCUSATE SODIUM 100MG CAPSULE PO SCH ×2 (08:37→20:58)
[2022-02-10] MEDS: AMIODARONE 200 MG TAB (PACERONE) PO SCH ×2 (08:37→20:59)
[2022-02-10] MEDS: LEVEMIR (INSULIN DETEMIR) 1 UNITS/0.01ML SC SCH (08:38)
[2022-02-10] MEDS ORDERED: ONDANSETRON 4MG/2ML VIAL IV PRN (22:50)
[2022-02-10] MEDS: cefTRIAXone SOD 1 GM in D5W MINI-BAG PLUS 50 ML IV SCH (23:00)
[2022-02-11] VITALS: O2SAT 98
[2022-02-11 04:00] VITALS: O2SAT 97
[2022-02-11 06:00] VITALS: BP 120/74
[2022-02-11] MEDS: LEVOTHYROXINE 50MCG TABLET (0.05MG) PO SCH (06:04)
[2022-02-11 06:21] LABS: HEMATOCRIT 36.6 % (42.0-52.0); HEMOGLOBIN 12.3 g/dl (13.5-17.5); MEAN CORPUSCULAR HGB CONC 33.6 g/dl (32.0-36.5); MEAN CORPUSCULAR VOLUME 101.1 fl (80.0-96.0); RED BLOOD COUNT 3.62 10^6/uL (4.30-6.10); WHITE BLOOD COUNT 7.4 10^3/uL (4.0-10.0)
[2022-02-11 06:33] LABS: PLATELET COUNT, AUTOMATED 89 10^3/uL (150-450)
[2022-02-11 06:49] LABS: CALCIUM LEVEL 8.7 MG/DL (8.8-10.2); CREATININE FOR GFR 5.51 MG/DL (0.70-1.30); GLOMERULAR FILTRATION RATE 10.9 (>42); POTASSIUM SERUM 5.5 MEQ/L (3.5-5.1)
[2022-02-11] MEDS ORDERED: PATIROMER SORBITEX CALCIUM 8.4 GM POWDER PACKET (VELTASSA) PO ONE (08:00)
[2022-02-11] MEDS ORDERED: LIDOCAINE 1% SDV 5ML VIAL SC PRN (08:25)
[2022-02-11] MEDS ORDERED: SODIUM CHLORIDE 0.9% 1000ML IV PRN (08:25)
[2022-02-11] MEDS: LEVEMIR (INSULIN DETEMIR) 1 UNITS/0.01ML SC SCH (09:00)
[2022-02-11] MEDS: AMIODARONE 200 MG TAB (PACERONE) PO SCH ×2 (09:18→21:00)
[2022-02-11] MEDS: NYSTATIN 100,000 UNITS/GM TOPICAL PWD 15 GM TOP SCH ×2 (09:18→21:34)
[2022-02-11] MEDS: VENLAFAXINE **XR** 37.5 MG CAPSULE PO SCH (09:18)
[2022-02-11] MEDS: DOCUSATE SODIUM 100MG CAPSULE PO SCH ×2 (09:18→21:34)
[2022-02-11] MEDS: MIDODRINE 5 MG TAB PO SCH ×3 (09:19→15:48)
[2022-02-11] MEDS: INSULIN LISPRO (NovoLOG) PER UNIT SC SCH ×3 (09:20→17:52)
[2022-02-11 12:00] VITALS: BP 101/69
[2022-02-11] MEDS ORDERED: CEFDINIR 300 MG CAP (OMNICEF) PO SCH (16:00)
[2022-02-11 19:48] VITALS: BP 103/73
[2022-02-11 20:00] VITALS: O2SAT 92
[2022-02-12 04:49] VITALS: BP 103/77
[2022-02-12] MEDS ORDERED: LIDOCAINE 1% SDV 5ML VIAL SC PRN (05:00)
[2022-02-12] MEDS ORDERED: SODIUM CHLORIDE 0.9% 1000ML IV PRN (05:00)
[2022-02-12] MEDS: AMIODARONE 200 MG TAB (PACERONE) PO SCH (06:17)
[2022-02-12] MEDS: DOCUSATE SODIUM 100MG CAPSULE PO SCH (06:19)
[2022-02-12] MEDS: LEVOTHYROXINE 50MCG TABLET (0.05MG) PO SCH (06:19)
[2022-02-12] MEDS: MIDODRINE 5 MG TAB PO SCH ×2 (06:19→12:34)
[2022-02-12] MEDS: VENLAFAXINE **XR** 37.5 MG CAPSULE PO SCH (06:20)
[2022-02-12 06:33] LABS: HEMATOCRIT 36.7 % (42.0-52.0); HEMOGLOBIN 12.3 g/dl (13.5-17.5); MEAN CORPUSCULAR HEMOGLOBIN 33.6 pg (27.0-33.0); MEAN CORPUSCULAR HGB CONC 33.5 g/dl (32.0-36.5); MEAN CORPUSCULAR VOLUME 100.3 fl (80.0-96.0); PLATELET COUNT, AUTOMATED 106 10^3/uL (150-450); RED BLOOD COUNT 3.66 10^6/uL (4.30-6.10); WHITE BLOOD COUNT 7.7 10^3/uL (4.0-10.0)
[2022-02-12] MEDS: LEVEMIR (INSULIN DETEMIR) 1 UNITS/0.01ML SC SCH (06:38)
[2022-02-12] MEDS: NYSTATIN 100,000 UNITS/GM TOPICAL PWD 15 GM TOP SCH (06:39)
[2022-02-12] MEDS: INSULIN LISPRO (NovoLOG) PER UNIT SC SCH ×2 (06:39→12:33)
[2022-02-12 06:54] LABS: CALCIUM LEVEL 9.1 MG/DL (8.8-10.2); CREATININE FOR GFR 6.4 MG/DL (0.70-1.30); GLOMERULAR FILTRATION RATE 9.2 (>42); POTASSIUM SERUM 5.6 MEQ/L (3.5-5.1)
[2022-02-12] MEDS ORDERED: DOXY-350 PO (08:54)
[2022-02-12] MEDS ORDERED: CEFD300CAP PO (08:54)
[2022-02-12] MEDS ORDERED: BACITAB PO (08:54)
[2022-02-12 12:00] VITALS: BP 94/57
== END 2022-02-12 13:20 | disposition home health service (06) | DRG 637 ==
LOC: M ED 15:09 → M ED INP 15:10 → ENRESERV 02-09 07:09 → M 4MAIN 02-09 08:28 → ENRESERV 02-09 08:29 → OBSVTOIN 02-10 12:07
PROVIDERS: ADMIT Internal Medicine; ATTEND Internal Medicine
PROC: 5A1D70Z Performance of Urinary Filtration, Intermittent, Less than 6 Hours Per Day (ICD-10-PCS; principal; 2022-02-10)
DX: E11.628 Type 2 diabetes mellitus with other skin complications (principal); U07.1 COVID-19; I50.23 Acute on chronic systolic (congestive) heart failure; I13.2 Hypertensive heart and chronic kidney disease with heart failure and with stage 5 chronic kidney disease, or end stage renal disease; J90 Pleural effusion, not elsewhere classified; E87.1 Hypo-osmolality and hyponatremia; Z99.2 Dependence on renal dialysis; D69.6 Thrombocytopenia, unspecified; E78.5 Hyperlipidemia, unspecified; L14 Bullous disorders in diseases classified elsewhere; Z79.82 Long term (current) use of aspirin; Z79.2 Long term (current) use of antibiotics; Z79.4 Long term (current) use of insulin; Z79.899 Other long term (current) drug therapy; Z88.2 Allergy status to sulfonamides; Z88.1 Allergy status to other antibiotic agents; Z88.8 Allergy status to other drugs, medicaments and biological substances; E78.00 Pure hypercholesterolemia, unspecified; E03.9 Hypothyroidism, unspecified; F32.A Depression, unspecified; Z90.5 Acquired absence of kidney; Z90.49 Acquired absence of other specified parts of digestive tract; Z85.118 Personal history of other malignant neoplasm of bronchus and lung; Z66 Do not resuscitate; N18.6 End stage renal disease; I95.9 Hypotension, unspecified; E87.6 Hypokalemia; Z89.412 Acquired absence of left great toe; D63.1 Anemia in chronic kidney disease; E11.22 Type 2 diabetes mellitus with diabetic chronic kidney disease

== ENCOUNTER → 2022-03-05 | Outpatient (POV) | payer MEDICARE, BC ==
[~2022-03-05] VITALS: Ht 185.4 cm; Wt 107.0 kg
[~2022-03-05] MED LIST changes: +AMIO200T37 PO; +CEFD300CAP PO; +MIDO5TA PO
[2022-03-05 12:56] VITALS: BP 108/60
== END ==
LOC: M IRPOV 12:46
PROVIDERS: ATTEND Radiology Diagnostic Radiology
DX: N19 Unspecified kidney failure (principal); Z45.2 Encounter for adjustment and management of vascular access device; Z88.1 Allergy status to other antibiotic agents; Z88.2 Allergy status to sulfonamides; Z88.8 Allergy status to other drugs, medicaments and biological substances

== ENCOUNTER → 2022-05-06 | Outpatient (CLI) | payer MEDICARE, BC ==
[~2022-05-06] MED LIST changes: +HYDR-3910 PO; +XALA0.007 OP
== END ==
LOC: M LABSMTC 10:29
PROVIDERS: ATTEND Anesthesiology
DX: Z01.818 Encounter for other preprocedural examination (principal); Z11.52 Encounter for screening for COVID-19

== ENCOUNTER → 2022-05-08 | Outpatient (CLI) | payer MEDICARE, BC ==
[~2022-05-08] MED LIST changes: +ACETAMINOPHEN 325 MG TAB As Ordered ONE; +ACETAMINOPHEN TAB 650MG DOSE (2X325MG) PO PRN; +CLOP75TA2 PO; +CLOPIDOGREL 75 MG TAB As Ordered ONE; +CLOPIDOGREL 75 MG TAB PO ONE; +CLOPIDOGREL 75 MG TAB PO SCH; +ISOVUE-300 61% 50ML VIAL As Ordered ONE; +LIDOCAINE 1% MDV 20ML VIAL As Ordered ONE; +MIDAZOLAM INJ 2MG/2ML VIAL (J2250 PER 1MG) As Ordered ONE; +NITROGLYCERIN IN D5W 25MG/250ML (100MCG/ML) As Ordered ONE; +ONDANSETRON 4MG 2ML VIAL IV PRN; +ceFAZolin 2 GM/D5W 50 ML IV BAG (J0690 PER 500MG) As Ordered ONE; +ceFAZolin SOD 2 GM in IV 1 EA IV ONE; +fentaNYL 100 MCG/2 ML INJECTION As Ordered ONE
[2022-05-08 08:28] LABS: HEMATOCRIT 30.6 % (42.0-52.0); HEMOGLOBIN 9.8 g/dl (13.5-17.5); MEAN CORPUSCULAR HEMOGLOBIN 33.7 pg (27.0-33.0); MEAN CORPUSCULAR VOLUME 105.2 fl (80.0-96.0); PLATELET COUNT, AUTOMATED 154 10^3/uL (150-450); RED BLOOD COUNT 2.91 10^6/uL (4.30-6.10); WHITE BLOOD COUNT 8.1 10^3/uL (4.0-10.0)
[2022-05-08 08:46] LABS: INR 1.19; PROTHROMBIN TIME 15.5 SECONDS (12.7-14.5)
[2022-05-08 09:01] LABS: CREATININE FOR GFR 3.79 MG/DL (0.70-1.30); GLOMERULAR FILTRATION RATE 16.8 (>42); POTASSIUM SERUM 4.8 MEQ/L (3.5-5.1)
[2022-05-08 13:00] VITALS: BP 103/62
== END ==
LOC: M IRPRO 07:44
PROVIDERS: ATTEND Surgery Vascular Surgery
DX: I70.235 Atherosclerosis of native arteries of right leg with ulceration of other part of foot (principal); I70.245 Atherosclerosis of native arteries of left leg with ulceration of other part of foot
CPT/HCPCS: 37228; 75710; 80048; 85027; 85610; 86850; 86900; 86901; 99152; 99153; C1725; C1760; C1769; C1894; J0690; J1644; J2250; J3010; Q9967

== ENCOUNTER 2022-05-09 18:24 | Emergency (ER) | payer MEDICARE, BC ==
[~2022-05-09] VITALS: Ht 182.9 cm; Wt 109.0 kg
[~2022-05-09 18:24] MED LIST changes: -ACETAMINOPHEN 325 MG TAB As Ordered ONE; -ACETAMINOPHEN TAB 650MG DOSE (2X325MG) PO PRN; -CLOPIDOGREL 75 MG TAB As Ordered ONE; -CLOPIDOGREL 75 MG TAB PO ONE; -CLOPIDOGREL 75 MG TAB PO SCH; -ISOVUE-300 61% 50ML VIAL As Ordered ONE; -LIDOCAINE 1% MDV 20ML VIAL As Ordered ONE; -MIDAZOLAM INJ 2MG/2ML VIAL (J2250 PER 1MG) As Ordered ONE; -NITROGLYCERIN IN D5W 25MG/250ML (100MCG/ML) As Ordered ONE; -ONDANSETRON 4MG 2ML VIAL IV PRN; -ceFAZolin 2 GM/D5W 50 ML IV BAG (J0690 PER 500MG) As Ordered ONE; -ceFAZolin SOD 2 GM in IV 1 EA IV ONE; -fentaNYL 100 MCG/2 ML INJECTION As Ordered ONE
[2022-05-09 19:59] LABS: BASO # 0.1 10^3/uL (0.0-0.2); BASO % 0.6 % (0.0-1.0); EOS # 0.2 10^3/uL (0.0-0.5); EOS % 2.3 % (0.0-3.0); HEMOGLOBIN 9.5 g/dl (13.5-17.5); LYMPH # 0.8 10^3/uL (1.5-5.0); LYMPH % 9.2 % (24.0-44.0); MEAN CORPUSCULAR HEMOGLOBIN 33.9 pg (27.0-33.0); MEAN CORPUSCULAR HGB CONC 32.8 g/dl (32.0-36.5); MEAN CORPUSCULAR VOLUME 103.6 fl (80.0-96.0); MONO # 0.5 10^3/uL (0.0-0.8); MONO % 5.5 % (2.0-8.0); NEUTROPHILS # 7.3 10^3/uL (1.5-8.5); NEUTROPHILS % 81.7 % (36.0-66.0); PLATELET COUNT, AUTOMATED 163 10^3/uL (150-450)
[2022-05-09 20:29] LABS: CALCIUM LEVEL 8.4 MG/DL (8.8-10.2); CREATININE FOR GFR 5.05 MG/DL (0.70-1.30); GLOMERULAR FILTRATION RATE 12.1 (>42); POTASSIUM SERUM 5.7 MEQ/L (3.5-5.1)
[2022-05-09] MEDS ORDERED: PATIROMER SORBITEX CALCIUM 8.4 GM POWDER PACKET (VELTASSA) PO ONE (20:45)
[2022-05-09 21:30] VITALS: O2SAT 95
[2022-05-09 21:31] VITALS: BP 111/59
== END 2022-05-09 22:01 | disposition home or self-care (01) ==
LOC: M ED 18:24
DX: N18.6 End stage renal disease (principal); E87.5 Hyperkalemia; Z99.2 Dependence on renal dialysis; R53.81 Other malaise; E11.22 Type 2 diabetes mellitus with diabetic chronic kidney disease; I13.2 Hypertensive heart and chronic kidney disease with heart failure and with stage 5 chronic kidney disease, or end stage renal disease; E78.5 Hyperlipidemia, unspecified; E03.9 Hypothyroidism, unspecified; Z86.16 Personal history of COVID-19; Z90.5 Acquired absence of kidney; Z90.49 Acquired absence of other specified parts of digestive tract; Z85.118 Personal history of other malignant neoplasm of bronchus and lung; Z88.2 Allergy status to sulfonamides; Z88.8 Allergy status to other drugs, medicaments and biological substances; Z79.899 Other long term (current) drug therapy; Z79.891 Long term (current) use of opiate analgesic; Z79.4 Long term (current) use of insulin

== ENCOUNTER → 2022-06-03 | Outpatient (CLI) | payer MEDICARE, BC | LOC: M LABSMTC 09:32 | PROVIDERS: ATTEND Anesthesiology | DX: Z01.812 Encounter for preprocedural laboratory examination (principal); Z20.822 Contact with and (suspected) exposure to COVID-19 ==

== ENCOUNTER → 2022-06-05 | Outpatient (CLI) | payer MEDICARE, BC ==
[~2022-06-05] MED LIST changes: +ISOVUE-300 61% 50ML VIAL As Ordered ONE; +LIDOCAINE 1% MDV 20ML VIAL As Ordered ONE; +MIDAZOLAM INJ 2MG/2ML VIAL (J2250 PER 1MG) As Ordered ONE; +ceFAZolin 2 GM/D5W 50 ML IV BAG (J0690 PER 500MG) As Ordered ONE; +ceFAZolin SOD 2 GM in IV 1 EA IV ONE; +fentaNYL 100 MCG/2 ML INJECTION As Ordered ONE
[2022-06-05 08:13] LABS: HEMATOCRIT 27.6 % (42.0-52.0); HEMOGLOBIN 8.9 g/dl (13.5-17.5); MEAN CORPUSCULAR HEMOGLOBIN 34.2 pg (27.0-33.0); MEAN CORPUSCULAR HGB CONC 32.2 g/dl (32.0-36.5); MEAN CORPUSCULAR VOLUME 106.2 fl (80.0-96.0); PLATELET COUNT, AUTOMATED 165 10^3/uL (150-450); WHITE BLOOD COUNT 7.4 10^3/uL (4.0-10.0)
[2022-06-05 08:25] LABS: INR 1.27; PARTIAL THROMBOPLASTIN TIME 33.2 SECONDS (24.8-34.2); PROTHROMBIN TIME 16.2 SECONDS (12.5-14.5)
[2022-06-05 08:46] LABS: CALCIUM LEVEL 8.5 MG/DL (8.8-10.2); CREATININE FOR GFR 3.92 MG/DL (0.70-1.30); GLOMERULAR FILTRATION RATE 16.2 (>42); POTASSIUM SERUM 5.5 MEQ/L (3.5-5.1)
[2022-06-05 14:00] VITALS: BP 110/69
== END ==
LOC: M IRPRO 07:20
PROVIDERS: ATTEND Surgery Vascular Surgery
DX: I70.293 Other atherosclerosis of native arteries of extremities, bilateral legs (principal); M86.8X7 Other osteomyelitis, ankle and foot
CPT/HCPCS: 37224; 37228; 37232; 80048; 85027; 85610; 85730; 86850; 86900; 86901; C1725; C1761; C1769; C1887; C1894; C2623; G0269; J0690; J1644; J2250; J3010; Q9967

== ENCOUNTER → 2022-06-07 | Outpatient (CLI) | payer MEDICARE, BC ==
[~2022-06-07] MED LIST changes: -ISOVUE-300 61% 50ML VIAL As Ordered ONE; -MIDAZOLAM INJ 2MG/2ML VIAL (J2250 PER 1MG) As Ordered ONE; -fentaNYL 100 MCG/2 ML INJECTION As Ordered ONE
[2022-06-07 09:45] VITALS: BP 114/64
== END ==
LOC: M IRPRO 07:10
PROVIDERS: ATTEND Surgery Vascular Surgery
DX: N18.6 End stage renal disease (principal)
CPT/HCPCS: 36590; J0690

== ENCOUNTER 2022-07-21 18:22 | Inpatient (IN) | payer MEDICARE, BC ==
[~2022-07-21] VITALS: Ht 185.4 cm; Wt 88.5 kg
[~2022-07-21 18:22] MED LIST changes: -DOXY-350 PO; +DOXY-444 PO; -LIDOCAINE 1% MDV 20ML VIAL As Ordered ONE; -ceFAZolin 2 GM/D5W 50 ML IV BAG (J0690 PER 500MG) As Ordered ONE; -ceFAZolin SOD 2 GM in IV 1 EA IV ONE
[2022-07-21 19:11] LABS: BASO % 0.2 % (0.0-1.0); EOS # 0.1 10^3/uL (0.0-0.5); EOS % 0.8 % (0.0-3.0); HEMATOCRIT 30.1 % (42.0-52.0); LYMPH # 0.7 10^3/uL (1.5-5.0); LYMPH % 5.7 % (24.0-44.0); MEAN CORPUSCULAR HEMOGLOBIN 34.8 pg (27.0-33.0); MEAN CORPUSCULAR HGB CONC 33.2 g/dl (32.0-36.5); MEAN CORPUSCULAR VOLUME 104.9 fl (80.0-96.0); MONO # 0.7 10^3/uL (0.0-0.8); MONO % 5.7 % (2.0-8.0); NEUTROPHILS # 10.6 10^3/uL (1.5-8.5); NEUTROPHILS % 87.1 % (36.0-66.0); PLATELET COUNT, AUTOMATED 169 10^3/uL (150-450); RED BLOOD COUNT 2.87 10^6/uL (4.30-6.10); WHITE BLOOD COUNT 12.2 10^3/uL (4.0-10.0)
[2022-07-21 19:48] LABS: ALBUMIN 2.5 G/DL (3.2-5.2); BILIRUBIN,DIRECT 0.3 MG/DL (<0.4); BILIRUBIN,TOTAL 0.5 MG/DL (0.3-1.2); CALCIUM LEVEL 8.1 MG/DL (8.3-10.6); CREATININE FOR GFR 3.94 MG/DL (0.70-1.30); GLOMERULAR FILTRATION RATE 16.1 (>42); POTASSIUM SERUM 4.2 MMOL/L (3.5-5.1); THYROID STIMULATING HORMONE 2.484 uIU/ML (0.55-4.78); TOTAL PROTEIN 6.1 G/DL (5.7-8.2)
[2022-07-21] MEDS ORDERED: CLOP75TA99 PO (20:38)
[2022-07-21] MEDS ORDERED: FISH1CAP26 PO (20:38)
[2022-07-21] MEDS ORDERED: TRAZ-252 PO (20:38)
[2022-07-21] MEDS ORDERED: DOCU100C16 PO (20:39)
[2022-07-21] MEDS ORDERED: HOME MED LIST COMPLETE! XX SCH (20:40)
[2022-07-21] MEDS: traZODone 50 MG TAB PO SCH (21:00)
[2022-07-21] MEDS: INSULIN LISPRO (NovoLOG) PER UNIT SC SCH (21:00)
[2022-07-21] MEDS ORDERED: MOM 30ML SUSPENSION UDC PO PRN (21:40)
[2022-07-21] MEDS ORDERED: DEXTROSE 50% 50ML SYRINGE IV PRN (21:40)
[2022-07-21] MEDS ORDERED: GLUCOSE 4GM CHEW TABLET PO PRN (21:40)
[2022-07-21] MEDS ORDERED: GLUCAGON INJ 1MG VIAL SC PRN (21:40)
[2022-07-22] MEDS: MIDODRINE 5 MG TAB PO SCH ×2 (07:39→16:53)
[2022-07-22 07:46] LABS: HEMATOCRIT 28.6 % (42.0-52.0); HEMOGLOBIN 9.4 g/dl (13.5-17.5); MEAN CORPUSCULAR HEMOGLOBIN 34.4 pg (27.0-33.0); MEAN CORPUSCULAR HGB CONC 32.9 g/dl (32.0-36.5); MEAN CORPUSCULAR VOLUME 104.8 fl (80.0-96.0); PLATELET COUNT, AUTOMATED 133 10^3/uL (150-450); RED BLOOD COUNT 2.73 10^6/uL (4.30-6.10)
[2022-07-22] MEDS: INSULIN LISPRO (NovoLOG) PER UNIT SC SCH ×4 (08:55→20:37)
[2022-07-22 08:58] LABS: CALCIUM LEVEL 7.8 MG/DL (8.3-10.6); CREATININE FOR GFR 4.36 MG/DL (0.70-1.30); GLOMERULAR FILTRATION RATE 14.3 (>42); POTASSIUM SERUM 4.1 MMOL/L (3.5-5.1)
[2022-07-22] MEDS: DOCUSATE SODIUM 100MG CAPSULE PO SCH ×2 (09:03→20:42)
[2022-07-22] MEDS: LEVEMIR (INSULIN DETEMIR) 1 UNITS/0.01ML SC SCH (09:04)
[2022-07-22] MEDS: VENLAFAXINE **XR** 37.5 MG CAPSULE PO SCH (09:04)
[2022-07-22] MEDS: ASPIRIN 81MG ENTERIC TABLET PO SCH (09:04)
[2022-07-22] MEDS: CLOPIDOGREL 75 MG TAB PO SCH (09:04)
[2022-07-22] MEDS: AMIODARONE 200 MG TAB (PACERONE) PO SCH (09:04)
[2022-07-22] MEDS: HEPARIN SOD (PORCINE) 5000UNITS/ML 1ML VIAL/SYRINGE SC SCH ×2 (09:52→20:46)
[2022-07-22 15:05] VITALS: BP 105/63
[2022-07-22] MEDS: traZODone 50 MG TAB PO SCH (20:42)
[2022-07-22] MEDS: SIMVASTATIN 40 MG TAB PO SCH (20:42)
[2022-07-22 20:45] VITALS: BP 100/52
[2022-07-23] MEDS: DOCUSATE SODIUM 100MG CAPSULE PO SCH ×2 (05:34→21:33)
[2022-07-23] MEDS: CLOPIDOGREL 75 MG TAB PO SCH (05:34)
[2022-07-23] MEDS: ASPIRIN 81MG ENTERIC TABLET PO SCH (05:34)
[2022-07-23] MEDS: AMIODARONE 200 MG TAB (PACERONE) PO SCH (05:34)
[2022-07-23] MEDS: MIDODRINE 5 MG TAB PO SCH ×2 (05:34→17:09)
[2022-07-23] MEDS: HEPARIN SOD (PORCINE) 5000UNITS/ML 1ML VIAL/SYRINGE SC SCH ×2 (05:36→21:00)
[2022-07-23 06:00] VITALS: BP 104/60
[2022-07-23] MEDS ORDERED: SODIUM CHLORIDE 0.9% 1000ML IV PRN (06:00)
[2022-07-23] MEDS ORDERED: HEPARIN 1,000UNITS/ML 10ML VIAL (FOR RADIOLOGY & DIALYSIS ONLY) IV PRN (06:00)
[2022-07-23] MEDS ORDERED: LIDOCAINE 1% SDV 5ML VIAL SC PRN (06:00)
[2022-07-23] MEDS ORDERED: HEPARIN 1,000UNITS/ML 10ML VIAL (FOR RADIOLOGY & DIALYSIS ONLY) XX SCH (06:00)
[2022-07-23 06:14] LABS: BASO % 0.2 % (0.0-1.0); EOS # 0.2 10^3/uL (0.0-0.5); EOS % 1.6 % (0.0-3.0); HEMATOCRIT 29.5 % (42.0-52.0); HEMOGLOBIN 9.9 g/dl (13.5-17.5); LYMPH # 0.8 10^3/uL (1.5-5.0); LYMPH % 6.8 % (24.0-44.0); MEAN CORPUSCULAR HEMOGLOBIN 34.9 pg (27.0-33.0); MEAN CORPUSCULAR HGB CONC 33.6 g/dl (32.0-36.5); MEAN CORPUSCULAR VOLUME 103.9 fl (80.0-96.0); MONO # 0.6 10^3/uL (0.0-0.8); MONO % 5.5 % (2.0-8.0); NEUTROPHILS # 9.8 10^3/uL (1.5-8.5); NEUTROPHILS % 85.1 % (36.0-66.0); PLATELET COUNT, AUTOMATED 152 10^3/uL (150-450); RED BLOOD COUNT 2.84 10^6/uL (4.30-6.10); WHITE BLOOD COUNT 11.6 10^3/uL (4.0-10.0)
[2022-07-23 06:32] LABS: ALBUMIN 2.5 G/DL (3.2-5.2)
[2022-07-23 06:37] LABS: CALCIUM LEVEL 8.1 MG/DL (8.3-10.6)
[2022-07-23 06:40] LABS: BILIRUBIN,TOTAL 0.5 MG/DL (0.3-1.2); CREATININE FOR GFR 5.08 MG/DL (0.70-1.30); TOTAL PROTEIN 5.9 G/DL (5.7-8.2)
[2022-07-23] MEDS: INSULIN LISPRO (NovoLOG) PER UNIT SC SCH ×4 (07:30→20:43)
[2022-07-23] MEDS: VENLAFAXINE **XR** 37.5 MG CAPSULE PO SCH (07:47)
[2022-07-23] MEDS: LEVEMIR (INSULIN DETEMIR) 1 UNITS/0.01ML SC SCH (12:40)
[2022-07-23 14:00] VITALS: BP 118/68
[2022-07-23] MEDS: DARBEPOETIN 100MCG/0.5ML *NON-DIALYSIS* SYRINGE SC SCH (17:08)
[2022-07-23 20:55] VITALS: BP 102/58
[2022-07-23] MEDS: traZODone 50 MG TAB PO SCH (21:33)
[2022-07-23] MEDS: SIMVASTATIN 40 MG TAB PO SCH (21:33)
[2022-07-24] VITALS (13 sets, daily range): BP systolic 84–106; BP diastolic 46–66
[2022-07-24 05:56] LABS: HEMATOCRIT 28.9 % (42.0-52.0); HEMOGLOBIN 9.6 g/dl (13.5-17.5); MEAN CORPUSCULAR HEMOGLOBIN 34.8 pg (27.0-33.0); MEAN CORPUSCULAR HGB CONC 33.2 g/dl (32.0-36.5); MEAN CORPUSCULAR VOLUME 104.7 fl (80.0-96.0); PLATELET COUNT, AUTOMATED 159 10^3/uL (150-450); RED BLOOD COUNT 2.76 10^6/uL (4.30-6.10); WHITE BLOOD COUNT 12.9 10^3/uL (4.0-10.0)
[2022-07-24 06:14] LABS: POTASSIUM SERUM 3.7 MMOL/L (3.5-5.1)
[2022-07-24 06:20] LABS: CALCIUM LEVEL 7.7 MG/DL (8.3-10.6)
[2022-07-24 06:22] LABS: CREATININE FOR GFR 3.78 MG/DL (0.70-1.30); GLOMERULAR FILTRATION RATE 16.9 (>42)
[2022-07-24] MEDS: INSULIN LISPRO (NovoLOG) PER UNIT SC SCH ×4 (07:30→21:00)
[2022-07-24] MEDS: CLOPIDOGREL 75 MG TAB PO SCH (08:10)
[2022-07-24] MEDS: HEPARIN SOD (PORCINE) 5000UNITS/ML 1ML VIAL/SYRINGE SC SCH ×2 (08:10→21:00)
[2022-07-24] MEDS: ASPIRIN 81MG ENTERIC TABLET PO SCH (08:10)
[2022-07-24] MEDS: LEVEMIR (INSULIN DETEMIR) 1 UNITS/0.01ML SC SCH (09:00)
[2022-07-24] MEDS: DOCUSATE SODIUM 100MG CAPSULE PO SCH ×2 (10:41→21:37)
[2022-07-24] MEDS: VENLAFAXINE **XR** 37.5 MG CAPSULE PO SCH (10:41)
[2022-07-24] MEDS: MIDODRINE 5 MG TAB PO SCH ×2 (10:43→16:00)
[2022-07-24] MEDS: AMIODARONE 200 MG TAB (PACERONE) PO SCH (10:43)
[2022-07-24] MEDS ORDERED: MIDODRINE 2.5 MG TAB PO STA (15:22)
[2022-07-24] MEDS ORDERED: LR 1,000 ML IV SCH (15:25)
[2022-07-24] MEDS ORDERED: LIDOCAINE 1% MDV 20ML VIAL As Ordered ONE (15:49)
[2022-07-24] MEDS ORDERED: BUPIVACAINE HCL 0.5% 30ML VIAL As Ordered ONE (15:49)
[2022-07-24] MEDS ORDERED: fentaNYL 100 MCG/2 ML INJECTION As Ordered ONE (17:11)
[2022-07-24] MEDS ORDERED: MIDAZOLAM INJ 2MG/2ML VIAL As Ordered ONE (17:11)
[2022-07-24] MEDS ORDERED: fentaNYL 100 MCG/2 ML INJECTION IV PRN (17:45)
[2022-07-24] MEDS ORDERED: oxyCODONE 5MG TAB PO PRN (17:45)
[2022-07-24] MEDS ORDERED: HYDROMORPHONE HCL 0.5 MG/ 0.5 ML SYRINGE IV PRN (17:45)
[2022-07-24] MEDS ORDERED: ONDANSETRON 4MG 2ML VIAL IV PRN (17:45)
[2022-07-24] MEDS: PIPERACILLIN/TAZOBACTAM SOD 3.375 GM in D5W MINI-BAG PLUS 50 ML IV ONE ×2 (18:34→18:50)
[2022-07-24] MEDS: traZODone 50 MG TAB PO SCH (21:36)
[2022-07-24] MEDS: SIMVASTATIN 40 MG TAB PO SCH (21:37)
[2022-07-25] VITALS (8 sets, daily range): BP systolic 96–108; BP diastolic 54–86
[2022-07-25] MEDS ORDERED: MIDODRINE 5 MG TAB PO ONE ×2 (06:00→23:50)
[2022-07-25] MEDS ORDERED: LIDOCAINE 1% SDV 5ML VIAL SC PRN (06:00)
[2022-07-25] MEDS ORDERED: HEPARIN 1,000UNITS/ML 10ML VIAL (FOR RADIOLOGY & DIALYSIS ONLY) IV PRN (06:00)
[2022-07-25] MEDS ORDERED: HEPARIN 1,000UNITS/ML 10ML VIAL (FOR RADIOLOGY & DIALYSIS ONLY) XX SCH (06:00)
[2022-07-25] MEDS ORDERED: SODIUM CHLORIDE 0.9% 1000ML IV PRN (06:00)
[2022-07-25] MEDS: AMIODARONE 200 MG TAB (PACERONE) PO SCH ×2 (06:25→08:14)
[2022-07-25] MEDS: DOCUSATE SODIUM 100MG CAPSULE PO SCH ×2 (06:25→20:31)
[2022-07-25] MEDS: VENLAFAXINE **XR** 37.5 MG CAPSULE PO SCH (06:25)
[2022-07-25] MEDS: CLOPIDOGREL 75 MG TAB PO SCH (08:14)
[2022-07-25] MEDS: MIDODRINE 5 MG TAB PO SCH ×2 (08:15→17:00)
[2022-07-25] MEDS: ASPIRIN 81MG ENTERIC TABLET PO SCH (08:16)
[2022-07-25] MEDS: HEPARIN SOD (PORCINE) 5000UNITS/ML 1ML VIAL/SYRINGE SC SCH ×2 (08:17→20:32)
[2022-07-25] MEDS: LEVEMIR (INSULIN DETEMIR) 1 UNITS/0.01ML SC SCH (08:19)
[2022-07-25] MEDS: INSULIN LISPRO (NovoLOG) PER UNIT SC SCH ×4 (08:31→20:19)
[2022-07-25 08:35] LABS: HEMATOCRIT 28.4 % (42.0-52.0); HEMOGLOBIN 9.4 g/dl (13.5-17.5); MEAN CORPUSCULAR HEMOGLOBIN 34.1 pg (27.0-33.0); MEAN CORPUSCULAR HGB CONC 33.1 g/dl (32.0-36.5); MEAN CORPUSCULAR VOLUME 102.9 fl (80.0-96.0); PLATELET COUNT, AUTOMATED 177 10^3/uL (150-450); RED BLOOD COUNT 2.76 10^6/uL (4.30-6.10); WHITE BLOOD COUNT 13.6 10^3/uL (4.0-10.0)
[2022-07-25 08:58] LABS: ALBUMIN 2.3 G/DL (3.2-5.2); BILIRUBIN,TOTAL 0.5 MG/DL (0.3-1.2); CREATININE FOR GFR 4.74 MG/DL (0.70-1.30); POTASSIUM SERUM 3.9 MMOL/L (3.5-5.1); TOTAL PROTEIN 6.1 G/DL (5.7-8.2)
[2022-07-25] MEDS ORDERED: PIPERACILLIN/TAZOBACTAM SOD 3.375 GM in D5W MINI-BAG PLUS 50 ML IV ONE (15:00)
[2022-07-25] MEDS: traZODone 50 MG TAB PO SCH (20:31)
[2022-07-25] MEDS: SIMVASTATIN 40 MG TAB PO SCH (20:31)
[2022-07-26 06:00] VITALS: BP 104/48
[2022-07-26 06:36] LABS: BASO % 0.2 % (0.0-1.0); EOS # 0.3 10^3/uL (0.0-0.5); EOS % 2.3 % (0.0-3.0); HEMATOCRIT 29.4 % (42.0-52.0); HEMOGLOBIN 9.6 g/dl (13.5-17.5); LYMPH # 0.6 10^3/uL (1.5-5.0); LYMPH % 5.5 % (24.0-44.0); MEAN CORPUSCULAR HEMOGLOBIN 34.2 pg (27.0-33.0); MEAN CORPUSCULAR HGB CONC 32.7 g/dl (32.0-36.5); MEAN CORPUSCULAR VOLUME 104.6 fl (80.0-96.0); MONO # 0.6 10^3/uL (0.0-0.8); MONO % 5.2 % (2.0-8.0); NEUTROPHILS # 9.5 10^3/uL (1.5-8.5); NEUTROPHILS % 85.9 % (36.0-66.0); PLATELET COUNT, AUTOMATED 173 10^3/uL (150-450); RED BLOOD COUNT 2.81 10^6/uL (4.30-6.10); WHITE BLOOD COUNT 11.1 10^3/uL (4.0-10.0)
[2022-07-26 06:40] LABS: BILIRUBIN,TOTAL 0.4 MG/DL (0.3-1.2); CALCIUM LEVEL 7.9 MG/DL (8.3-10.6); CREATININE FOR GFR 3.78 MG/DL (0.70-1.30); GLOMERULAR FILTRATION RATE 16.9 (>42); POTASSIUM SERUM 3.9 MMOL/L (3.5-5.1); TOTAL PROTEIN 5.4 G/DL (5.7-8.2)
[2022-07-26] MEDS: VENLAFAXINE **XR** 37.5 MG CAPSULE PO SCH (07:58)
[2022-07-26] MEDS: AMIODARONE 200 MG TAB (PACERONE) PO SCH (07:58)
[2022-07-26] MEDS: MIDODRINE 5 MG TAB PO SCH ×2 (07:58→17:35)
[2022-07-26] MEDS: CLOPIDOGREL 75 MG TAB PO SCH (07:58)
[2022-07-26] MEDS: ASPIRIN 81MG ENTERIC TABLET PO SCH (07:58)
[2022-07-26] MEDS: DOCUSATE SODIUM 100MG CAPSULE PO SCH ×2 (07:59→21:44)
[2022-07-26] MEDS: INSULIN LISPRO (NovoLOG) PER UNIT SC SCH ×4 (07:59→23:20)
[2022-07-26] MEDS: HEPARIN SOD (PORCINE) 5000UNITS/ML 1ML VIAL/SYRINGE SC SCH ×2 (07:59→21:44)
[2022-07-26] MEDS: LEVEMIR (INSULIN DETEMIR) 1 UNITS/0.01ML SC SCH (07:59)
[2022-07-26 09:00] VITALS: BP 102/56
[2022-07-26 14:23] VITALS: BP 104/60
[2022-07-26] MEDS: CEPHALEXIN 500 MG CAP PO SCH (17:35)
[2022-07-26] MEDS: traZODone 50 MG TAB PO SCH (21:44)
[2022-07-26] MEDS: SIMVASTATIN 40 MG TAB PO SCH (21:44)
[2022-07-26 22:00] VITALS: BP 103/63
[2022-07-27 06:00] VITALS: BP 98/58
[2022-07-27 06:12] LABS: BASO % 0.2 % (0.0-1.0); EOS # 0.3 10^3/uL (0.0-0.5); EOS % 2.4 % (0.0-3.0); LYMPH % 8.2 % (24.0-44.0); MEAN CORPUSCULAR HEMOGLOBIN 33.7 pg (27.0-33.0); MEAN CORPUSCULAR HGB CONC 32.3 g/dl (32.0-36.5); MEAN CORPUSCULAR VOLUME 104.4 fl (80.0-96.0); MONO # 0.8 10^3/uL (0.0-0.8); MONO % 6.2 % (2.0-8.0); NEUTROPHILS # 10.1 10^3/uL (1.5-8.5); NEUTROPHILS % 81.8 % (36.0-66.0); PLATELET COUNT, AUTOMATED 200 10^3/uL (150-450); RED BLOOD COUNT 2.97 10^6/uL (4.30-6.10); WHITE BLOOD COUNT 12.4 10^3/uL (4.0-10.0)
[2022-07-27] MEDS ORDERED: HEPARIN 1,000UNITS/ML 10ML VIAL (FOR RADIOLOGY & DIALYSIS ONLY) IV PRN (06:50)
[2022-07-27] MEDS ORDERED: LIDOCAINE 1% SDV 5ML VIAL SC PRN (06:50)
[2022-07-27] MEDS ORDERED: SODIUM CHLORIDE 0.9% 1000ML IV PRN (06:50)
[2022-07-27] MEDS ORDERED: HEPARIN 1,000UNITS/ML 10ML VIAL (FOR RADIOLOGY & DIALYSIS ONLY) XX SCH (06:50)
[2022-07-27 06:51] LABS: BILIRUBIN,TOTAL 0.3 MG/DL (0.3-1.2); CREATININE FOR GFR 4.47 MG/DL (0.70-1.30); GLOMERULAR FILTRATION RATE 13.9 (>42); POTASSIUM SERUM 4.1 MMOL/L (3.5-5.1); TOTAL PROTEIN 5.5 G/DL (5.7-8.2)
[2022-07-27] MEDS: HEPARIN SOD (PORCINE) 5000UNITS/ML 1ML VIAL/SYRINGE SC SCH ×2 (07:46→21:03)
[2022-07-27] MEDS: LEVEMIR (INSULIN DETEMIR) 1 UNITS/0.01ML SC SCH (07:46)
[2022-07-27] MEDS: DOCUSATE SODIUM 100MG CAPSULE PO SCH ×2 (07:47→21:02)
[2022-07-27] MEDS: ASPIRIN 81MG ENTERIC TABLET PO SCH (07:47)
[2022-07-27] MEDS: MIDODRINE 5 MG TAB PO SCH ×2 (07:47→16:51)
[2022-07-27] MEDS: AMIODARONE 200 MG TAB (PACERONE) PO SCH (07:47)
[2022-07-27] MEDS: VENLAFAXINE **XR** 37.5 MG CAPSULE PO SCH (07:47)
[2022-07-27] MEDS: INSULIN LISPRO (NovoLOG) PER UNIT SC SCH ×4 (07:47→20:43)
[2022-07-27] MEDS: CLOPIDOGREL 75 MG TAB PO SCH (07:47)
[2022-07-27] MEDS: ACETAMINOPHEN TAB 650MG DOSE (2X325MG) PO PRN ×2 (12:50→21:02)
[2022-07-27 14:00] VITALS: BP 102/58
[2022-07-27] MEDS: CEPHALEXIN 500 MG CAP PO SCH (17:50)
[2022-07-27 20:00] VITALS: BP 102/58
[2022-07-27] MEDS: SIMVASTATIN 40 MG TAB PO SCH (21:02)
[2022-07-27] MEDS: traZODone 50 MG TAB PO SCH (21:02)
[2022-07-28 06:00] VITALS: BP 96/43
[2022-07-28 06:05] LABS: BASO # 0.1 10^3/uL (0.0-0.2); BASO % 0.5 % (0.0-1.0); EOS # 0.4 10^3/uL (0.0-0.5); EOS % 3.4 % (0.0-3.0); HEMATOCRIT 30.3 % (42.0-52.0); HEMOGLOBIN 9.9 g/dl (13.5-17.5); LYMPH % 8.9 % (24.0-44.0); MEAN CORPUSCULAR HGB CONC 32.7 g/dl (32.0-36.5); MEAN CORPUSCULAR VOLUME 104.1 fl (80.0-96.0); MONO # 0.7 10^3/uL (0.0-0.8); MONO % 6.1 % (2.0-8.0); NEUTROPHILS # 8.7 10^3/uL (1.5-8.5); NEUTROPHILS % 79.7 % (36.0-66.0); PLATELET COUNT, AUTOMATED 207 10^3/uL (150-450); RED BLOOD COUNT 2.91 10^6/uL (4.30-6.10); WHITE BLOOD COUNT 10.9 10^3/uL (4.0-10.0)
[2022-07-28 06:41] LABS: ALBUMIN 1.9 G/DL (3.2-5.2); BILIRUBIN,TOTAL 0.3 MG/DL (0.3-1.2); CALCIUM LEVEL 8.3 MG/DL (8.3-10.6); CREATININE FOR GFR 3.36 MG/DL (0.70-1.30); GLOMERULAR FILTRATION RATE 19.3 (>42); TOTAL PROTEIN 5.5 G/DL (5.7-8.2)
[2022-07-28 08:08] VITALS: BP 104/60
[2022-07-28] MEDS: DOCUSATE SODIUM 100MG CAPSULE PO SCH ×2 (08:24→21:10)
[2022-07-28] MEDS: INSULIN LISPRO (NovoLOG) PER UNIT SC SCH ×4 (08:24→20:20)
[2022-07-28] MEDS: ASPIRIN 81MG ENTERIC TABLET PO SCH (08:24)
[2022-07-28] MEDS: LEVEMIR (INSULIN DETEMIR) 1 UNITS/0.01ML SC SCH (08:24)
[2022-07-28] MEDS: VENLAFAXINE **XR** 37.5 MG CAPSULE PO SCH (08:24)
[2022-07-28] MEDS: AMIODARONE 200 MG TAB (PACERONE) PO SCH (08:24)
[2022-07-28] MEDS: CLOPIDOGREL 75 MG TAB PO SCH (08:24)
[2022-07-28] MEDS: MIDODRINE 5 MG TAB PO SCH ×2 (08:24→15:45)
[2022-07-28] MEDS: HEPARIN SOD (PORCINE) 5000UNITS/ML 1ML VIAL/SYRINGE SC SCH ×2 (08:25→21:10)
[2022-07-28 14:00] VITALS: BP 101/70
[2022-07-28] MEDS: ACETAMINOPHEN TAB 650MG DOSE (2X325MG) PO PRN (15:46)
[2022-07-28] MEDS: CEPHALEXIN 500 MG CAP PO SCH (18:08)
[2022-07-28] MEDS: ONDANSETRON 4MG 2ML VIAL IV PRN ×2 (18:28→21:19)
[2022-07-28] MEDS: SIMVASTATIN 40 MG TAB PO SCH (21:10)
[2022-07-28] MEDS: traZODone 50 MG TAB PO SCH (21:10)
[2022-07-28 22:00] VITALS: BP 114/63
[2022-07-29 06:00] VITALS: BP 143/72
[2022-07-29 06:04] LABS: BASO % 0.4 % (0.0-1.0); EOS # 0.3 10^3/uL (0.0-0.5); EOS % 2.5 % (0.0-3.0); HEMATOCRIT 30.4 % (42.0-52.0); LYMPH % 9.1 % (24.0-44.0); MEAN CORPUSCULAR HEMOGLOBIN 34.1 pg (27.0-33.0); MEAN CORPUSCULAR HGB CONC 32.9 g/dl (32.0-36.5); MEAN CORPUSCULAR VOLUME 103.8 fl (80.0-96.0); MONO # 0.6 10^3/uL (0.0-0.8); MONO % 5.5 % (2.0-8.0); NEUTROPHILS # 8.7 10^3/uL (1.5-8.5); NEUTROPHILS % 81.2 % (36.0-66.0); PLATELET COUNT, AUTOMATED 204 10^3/uL (150-450); RED BLOOD COUNT 2.93 10^6/uL (4.30-6.10); WHITE BLOOD COUNT 10.7 10^3/uL (4.0-10.0)
[2022-07-29 06:32] LABS: ALBUMIN 1.9 G/DL (3.2-5.2); BILIRUBIN,TOTAL 0.3 MG/DL (0.3-1.2); CALCIUM LEVEL 8.3 MG/DL (8.3-10.6); CREATININE FOR GFR 3.93 MG/DL (0.70-1.30); GLOMERULAR FILTRATION RATE 16.1 (>42); POTASSIUM SERUM 4.4 MMOL/L (3.5-5.1); TOTAL PROTEIN 5.5 G/DL (5.7-8.2)
[2022-07-29] MEDS: INSULIN LISPRO (NovoLOG) PER UNIT SC SCH ×4 (08:36→20:37)
[2022-07-29] MEDS: LEVEMIR (INSULIN DETEMIR) 1 UNITS/0.01ML SC SCH (08:36)
[2022-07-29] MEDS: CLOPIDOGREL 75 MG TAB PO SCH (08:37)
[2022-07-29] MEDS: DOCUSATE SODIUM 100MG CAPSULE PO SCH ×2 (08:37→20:40)
[2022-07-29] MEDS: ASPIRIN 81MG ENTERIC TABLET PO SCH (08:37)
[2022-07-29] MEDS: HEPARIN SOD (PORCINE) 5000UNITS/ML 1ML VIAL/SYRINGE SC SCH ×2 (08:37→20:41)
[2022-07-29] MEDS: MIDODRINE 5 MG TAB PO SCH ×2 (08:37→16:34)
[2022-07-29] MEDS: VENLAFAXINE **XR** 37.5 MG CAPSULE PO SCH (08:37)
[2022-07-29] MEDS: AMIODARONE 200 MG TAB (PACERONE) PO SCH (08:37)
[2022-07-29 14:00] VITALS: BP 123/76
[2022-07-29] MEDS: CEPHALEXIN 500 MG CAP PO SCH (17:11)
[2022-07-29] MEDS: traZODone 50 MG TAB PO SCH (20:40)
[2022-07-29] MEDS: SIMVASTATIN 40 MG TAB PO SCH (20:40)
[2022-07-29 22:00] VITALS: BP 117/70
[2022-07-30 06:00] VITALS: BP 99/53
[2022-07-30] MEDS: AMIODARONE 200 MG TAB (PACERONE) PO SCH (06:24)
[2022-07-30] MEDS: ASPIRIN 81MG ENTERIC TABLET PO SCH (06:24)
[2022-07-30] MEDS: VENLAFAXINE **XR** 37.5 MG CAPSULE PO SCH (06:24)
[2022-07-30] MEDS: CLOPIDOGREL 75 MG TAB PO SCH (06:24)
[2022-07-30] MEDS: DOCUSATE SODIUM 100MG CAPSULE PO SCH ×2 (06:24→20:20)
[2022-07-30] MEDS: MIDODRINE 5 MG TAB PO SCH ×2 (06:24→17:22)
[2022-07-30] MEDS: HEPARIN SOD (PORCINE) 5000UNITS/ML 1ML VIAL/SYRINGE SC SCH ×2 (06:25→20:20)
[2022-07-30] MEDS ORDERED: HEPARIN 1,000UNITS/ML 10ML VIAL (FOR RADIOLOGY & DIALYSIS ONLY) XX SCH (06:50)
[2022-07-30] MEDS ORDERED: LIDOCAINE 1% SDV 5ML VIAL SC PRN (06:50)
[2022-07-30] MEDS ORDERED: SODIUM CHLORIDE 0.9% 1000ML IV PRN (06:50)
[2022-07-30] MEDS ORDERED: HEPARIN 1,000UNITS/ML 10ML VIAL (FOR RADIOLOGY & DIALYSIS ONLY) IV PRN (06:50)
[2022-07-30] MEDS: INSULIN LISPRO (NovoLOG) PER UNIT SC SCH ×4 (08:33→21:00)
[2022-07-30] MEDS: LEVEMIR (INSULIN DETEMIR) 1 UNITS/0.01ML SC SCH (08:36)
[2022-07-30] MEDS: DARBEPOETIN 100MCG/0.5ML *NON-DIALYSIS* SYRINGE SC SCH (12:23)
[2022-07-30 15:48] VITALS: BP 151/76
[2022-07-30] MEDS: CEPHALEXIN 500 MG CAP PO SCH (17:22)
[2022-07-30] MEDS: traZODone 50 MG TAB PO SCH (20:19)
[2022-07-30] MEDS: SIMVASTATIN 40 MG TAB PO SCH (20:19)
[2022-07-30 21:28] VITALS: BP 98/59
[2022-07-31] MEDS: CEPHALEXIN 500 MG CAP PO SCH ×2 (05:37→16:58)
[2022-07-31 05:58] VITALS: BP 101/58
[2022-07-31] MEDS: LEVEMIR (INSULIN DETEMIR) 1 UNITS/0.01ML SC SCH (08:21)
[2022-07-31] MEDS: HEPARIN SOD (PORCINE) 5000UNITS/ML 1ML VIAL/SYRINGE SC SCH ×2 (08:21→20:30)
[2022-07-31] MEDS: DOCUSATE SODIUM 100MG CAPSULE PO SCH ×2 (08:22→20:30)
[2022-07-31] MEDS: INSULIN LISPRO (NovoLOG) PER UNIT SC SCH ×4 (08:22→20:22)
[2022-07-31] MEDS: VENLAFAXINE **XR** 37.5 MG CAPSULE PO SCH (08:22)
[2022-07-31] MEDS: ASPIRIN 81MG ENTERIC TABLET PO SCH (08:23)
[2022-07-31] MEDS: MIDODRINE 5 MG TAB PO SCH ×2 (08:23→16:57)
[2022-07-31] MEDS: CLOPIDOGREL 75 MG TAB PO SCH (08:23)
[2022-07-31] MEDS: AMIODARONE 200 MG TAB (PACERONE) PO SCH (08:23)
[2022-07-31] MEDS: traZODone 50 MG TAB PO SCH (20:30)
[2022-07-31] MEDS: SIMVASTATIN 40 MG TAB PO SCH (20:30)
[2022-08-01 06:03] VITALS: BP 99/58
[2022-08-01] MEDS: VENLAFAXINE **XR** 37.5 MG CAPSULE PO SCH (06:24)
[2022-08-01] MEDS: ASPIRIN 81MG ENTERIC TABLET PO SCH (06:24)
[2022-08-01] MEDS: CEPHALEXIN 500 MG CAP PO SCH ×2 (06:24→17:34)
[2022-08-01] MEDS: CLOPIDOGREL 75 MG TAB PO SCH (06:25)
[2022-08-01] MEDS: DOCUSATE SODIUM 100MG CAPSULE PO SCH ×2 (06:25→20:07)
[2022-08-01] MEDS: AMIODARONE 200 MG TAB (PACERONE) PO SCH (06:25)
[2022-08-01] MEDS: MIDODRINE 5 MG TAB PO SCH ×2 (06:25→17:34)
[2022-08-01] MEDS ORDERED: LIDOCAINE 1% SDV 5ML VIAL SC PRN (06:50)
[2022-08-01] MEDS ORDERED: HEPARIN 1,000UNITS/ML 10ML VIAL (FOR RADIOLOGY & DIALYSIS ONLY) XX SCH (06:50)
[2022-08-01] MEDS ORDERED: SODIUM CHLORIDE 0.9% 1000ML IV PRN (06:50)
[2022-08-01] MEDS ORDERED: HEPARIN 1,000UNITS/ML 10ML VIAL (FOR RADIOLOGY & DIALYSIS ONLY) IV PRN (06:50)
[2022-08-01] MEDS: HEPARIN SOD (PORCINE) 5000UNITS/ML 1ML VIAL/SYRINGE SC SCH ×2 (08:09→20:06)
[2022-08-01] MEDS: LEVEMIR (INSULIN DETEMIR) 1 UNITS/0.01ML SC SCH (08:10)
[2022-08-01] MEDS: INSULIN LISPRO (NovoLOG) PER UNIT SC SCH ×4 (08:11→20:09)
[2022-08-01] MEDS: SIMVASTATIN 40 MG TAB PO SCH (20:07)
[2022-08-01] MEDS: traZODone 50 MG TAB PO SCH (20:07)
[2022-08-02] MEDS: CEPHALEXIN 500 MG CAP PO SCH ×2 (05:23→17:07)
[2022-08-02 06:00] VITALS: BP 105/63
[2022-08-02 09:02] VITALS: BP 101/60
[2022-08-02] MEDS: INSULIN LISPRO (NovoLOG) PER UNIT SC SCH ×4 (09:19→21:00)
[2022-08-02] MEDS: ASPIRIN 81MG ENTERIC TABLET PO SCH (10:04)
[2022-08-02] MEDS: CLOPIDOGREL 75 MG TAB PO SCH (10:05)
[2022-08-02] MEDS: MIDODRINE 5 MG TAB PO SCH ×2 (10:05→17:07)
[2022-08-02] MEDS: DOCUSATE SODIUM 100MG CAPSULE PO SCH ×2 (10:05→21:30)
[2022-08-02] MEDS: AMIODARONE 200 MG TAB (PACERONE) PO SCH (10:05)
[2022-08-02] MEDS: HEPARIN SOD (PORCINE) 5000UNITS/ML 1ML VIAL/SYRINGE SC SCH ×2 (10:06→21:31)
[2022-08-02] MEDS: VENLAFAXINE **XR** 37.5 MG CAPSULE PO SCH (10:06)
[2022-08-02] MEDS: LEVEMIR (INSULIN DETEMIR) 1 UNITS/0.01ML SC SCH (10:27)
[2022-08-02 14:16] VITALS: BP 102/62
[2022-08-02] MEDS: traZODone 50 MG TAB PO SCH (21:30)
[2022-08-02] MEDS: SIMVASTATIN 40 MG TAB PO SCH (21:30)
[2022-08-03 05:20] VITALS: BP 103/63
[2022-08-03] MEDS: CEPHALEXIN 500 MG CAP PO SCH ×2 (05:22→18:04)
[2022-08-03] MEDS: VENLAFAXINE **XR** 37.5 MG CAPSULE PO SCH (05:22)
[2022-08-03] MEDS: AMIODARONE 200 MG TAB (PACERONE) PO SCH (05:22)
[2022-08-03] MEDS: ASPIRIN 81MG ENTERIC TABLET PO SCH (05:22)
[2022-08-03] MEDS: DOCUSATE SODIUM 100MG CAPSULE PO SCH ×2 (05:22→20:14)
[2022-08-03] MEDS: CLOPIDOGREL 75 MG TAB PO SCH (05:22)
[2022-08-03] MEDS: MIDODRINE 5 MG TAB PO SCH ×2 (05:22→18:04)
[2022-08-03] MEDS ORDERED: LIDOCAINE 1% SDV 5ML VIAL SC PRN (06:00)
[2022-08-03] MEDS ORDERED: SODIUM CHLORIDE 0.9% 1000ML IV PRN (06:00)
[2022-08-03] MEDS ORDERED: HEPARIN 1,000UNITS/ML 10ML VIAL (FOR RADIOLOGY & DIALYSIS ONLY) IV PRN (06:00)
[2022-08-03] MEDS ORDERED: HEPARIN 1,000UNITS/ML 10ML VIAL (FOR RADIOLOGY & DIALYSIS ONLY) XX SCH (06:00)
[2022-08-03] MEDS: INSULIN LISPRO (NovoLOG) PER UNIT SC SCH ×4 (07:37→20:07)
[2022-08-03] MEDS: LEVEMIR (INSULIN DETEMIR) 1 UNITS/0.01ML SC SCH (07:37)
[2022-08-03] MEDS: HEPARIN SOD (PORCINE) 5000UNITS/ML 1ML VIAL/SYRINGE SC SCH ×2 (07:55→20:14)
[2022-08-03 08:00] VITALS: BP 108/68
[2022-08-03 14:00] VITALS: BP 106/62
[2022-08-03] MEDS: SIMVASTATIN 40 MG TAB PO SCH (20:14)
[2022-08-03] MEDS: traZODone 50 MG TAB PO SCH (20:14)
[2022-08-04] MEDS: CEPHALEXIN 500 MG CAP PO SCH ×2 (05:21→17:49)
[2022-08-04 06:00] VITALS: BP 110/64
[2022-08-04] MEDS: ASPIRIN 81MG ENTERIC TABLET PO SCH (08:00)
[2022-08-04] MEDS: AMIODARONE 200 MG TAB (PACERONE) PO SCH (08:00)
[2022-08-04] MEDS: INSULIN LISPRO (NovoLOG) PER UNIT SC SCH ×4 (08:00→20:03)
[2022-08-04] MEDS: LEVEMIR (INSULIN DETEMIR) 1 UNITS/0.01ML SC SCH (08:00)
[2022-08-04] MEDS: CLOPIDOGREL 75 MG TAB PO SCH (08:00)
[2022-08-04] MEDS: DOCUSATE SODIUM 100MG CAPSULE PO SCH ×2 (08:00→20:27)
[2022-08-04] MEDS: MIDODRINE 5 MG TAB PO SCH ×2 (08:01→17:49)
[2022-08-04] MEDS: HEPARIN SOD (PORCINE) 5000UNITS/ML 1ML VIAL/SYRINGE SC SCH ×2 (08:01→20:27)
[2022-08-04] MEDS: VENLAFAXINE **XR** 37.5 MG CAPSULE PO SCH (08:01)
[2022-08-04] MEDS: traZODone 50 MG TAB PO SCH (20:27)
[2022-08-04] MEDS: SIMVASTATIN 40 MG TAB PO SCH (20:27)
[2022-08-05] MEDS: CEPHALEXIN 500 MG CAP PO SCH ×2 (05:40→17:17)
[2022-08-05 05:56] VITALS: BP 100/55
[2022-08-05] MEDS: LEVEMIR (INSULIN DETEMIR) 1 UNITS/0.01ML SC SCH (08:14)
[2022-08-05] MEDS: HEPARIN SOD (PORCINE) 5000UNITS/ML 1ML VIAL/SYRINGE SC SCH ×2 (08:15→20:10)
[2022-08-05] MEDS: DOCUSATE SODIUM 100MG CAPSULE PO SCH ×2 (08:15→20:09)
[2022-08-05] MEDS: INSULIN LISPRO (NovoLOG) PER UNIT SC SCH ×4 (08:15→20:30)
[2022-08-05] MEDS: ASPIRIN 81MG ENTERIC TABLET PO SCH (08:15)
[2022-08-05] MEDS: CLOPIDOGREL 75 MG TAB PO SCH (08:16)
[2022-08-05] MEDS: VENLAFAXINE **XR** 37.5 MG CAPSULE PO SCH (08:16)
[2022-08-05] MEDS: AMIODARONE 200 MG TAB (PACERONE) PO SCH (08:16)
[2022-08-05] MEDS: MIDODRINE 5 MG TAB PO SCH ×2 (08:16→17:18)
[2022-08-05] MEDS: traZODone 50 MG TAB PO SCH (20:09)
[2022-08-05] MEDS: SIMVASTATIN 40 MG TAB PO SCH (20:10)
[2022-08-06] MEDS: CLOPIDOGREL 75 MG TAB PO SCH (05:38)
[2022-08-06] MEDS: CEPHALEXIN 500 MG CAP PO SCH ×2 (05:38→17:08)
[2022-08-06] MEDS: ASPIRIN 81MG ENTERIC TABLET PO SCH (05:38)
[2022-08-06] MEDS: DOCUSATE SODIUM 100MG CAPSULE PO SCH ×2 (05:38→20:16)
[2022-08-06] MEDS: VENLAFAXINE **XR** 37.5 MG CAPSULE PO SCH (05:38)
[2022-08-06] MEDS: AMIODARONE 200 MG TAB (PACERONE) PO SCH (05:38)
[2022-08-06 05:59] VITALS: BP 100/64
[2022-08-06] MEDS ORDERED: LIDOCAINE 1% SDV 5ML VIAL SC PRN (06:00)
[2022-08-06] MEDS ORDERED: SODIUM CHLORIDE 0.9% 1000ML IV PRN (06:00)
[2022-08-06] MEDS ORDERED: HEPARIN 1,000UNITS/ML 10ML VIAL (FOR RADIOLOGY & DIALYSIS ONLY) XX SCH (06:00)
[2022-08-06] MEDS ORDERED: HEPARIN 1,000UNITS/ML 10ML VIAL (FOR RADIOLOGY & DIALYSIS ONLY) IV PRN (06:00)
[2022-08-06] MEDS: MIDODRINE 5 MG TAB PO SCH ×2 (07:59→15:33)
[2022-08-06] MEDS: LEVEMIR (INSULIN DETEMIR) 1 UNITS/0.01ML SC SCH (07:59)
[2022-08-06] MEDS: HEPARIN SOD (PORCINE) 5000UNITS/ML 1ML VIAL/SYRINGE SC SCH ×2 (07:59→20:16)
[2022-08-06] MEDS: INSULIN LISPRO (NovoLOG) PER UNIT SC SCH ×4 (08:00→20:21)
[2022-08-06] MEDS: DARBEPOETIN 100MCG/0.5ML *DIALYSIS* SYRINGE IV SCH (09:54)
[2022-08-06] MEDS: ACETAMINOPHEN TAB 650MG DOSE (2X325MG) PO PRN ×2 (15:33→23:37)
[2022-08-06] MEDS: traZODone 50 MG TAB PO SCH (20:16)
[2022-08-06] MEDS: SIMVASTATIN 40 MG TAB PO SCH (20:18)
[2022-08-07 05:15] VITALS: BP 92/48
[2022-08-07] MEDS: HEPARIN SOD (PORCINE) 5000UNITS/ML 1ML VIAL/SYRINGE SC SCH ×2 (09:04→21:11)
[2022-08-07] MEDS: LEVEMIR (INSULIN DETEMIR) 1 UNITS/0.01ML SC SCH (09:04)
[2022-08-07] MEDS: INSULIN LISPRO (NovoLOG) PER UNIT SC SCH ×4 (09:04→21:00)
[2022-08-07] MEDS: ASPIRIN 81MG ENTERIC TABLET PO SCH (09:05)
[2022-08-07] MEDS: DOCUSATE SODIUM 100MG CAPSULE PO SCH ×2 (09:05→21:11)
[2022-08-07] MEDS: AMIODARONE 200 MG TAB (PACERONE) PO SCH (09:05)
[2022-08-07] MEDS: CLOPIDOGREL 75 MG TAB PO SCH (09:05)
[2022-08-07] MEDS: VENLAFAXINE **XR** 37.5 MG CAPSULE PO SCH (09:05)
[2022-08-07] MEDS: MIDODRINE 5 MG TAB PO SCH ×2 (09:05→17:07)
[2022-08-07 11:02] VITALS: BP 105/52
[2022-08-07] MEDS: traZODone 50 MG TAB PO SCH (21:11)
[2022-08-07] MEDS: SIMVASTATIN 40 MG TAB PO SCH (21:11)
[2022-08-08 05:24] VITALS: BP 108/65
[2022-08-08] MEDS ORDERED: LIDOCAINE 1% SDV 5ML VIAL SC PRN (06:00)
[2022-08-08] MEDS ORDERED: SODIUM CHLORIDE 0.9% 1000ML IV PRN (06:00)
[2022-08-08] MEDS ORDERED: HEPARIN 1,000UNITS/ML 10ML VIAL (FOR RADIOLOGY & DIALYSIS ONLY) IV PRN (06:00)
[2022-08-08] MEDS ORDERED: HEPARIN 1,000UNITS/ML 10ML VIAL (FOR RADIOLOGY & DIALYSIS ONLY) XX SCH (06:00)
[2022-08-08 07:00] VITALS: BP 109/66
[2022-08-08] MEDS ORDERED: ONDANSETRON 4MG TAB PO ONE (07:00)
[2022-08-08] MEDS: INSULIN LISPRO (NovoLOG) PER UNIT SC SCH ×4 (07:30→21:00)
[2022-08-08] MEDS: DOCUSATE SODIUM 100MG CAPSULE PO SCH ×2 (08:00→21:24)
[2022-08-08] MEDS: AMIODARONE 200 MG TAB (PACERONE) PO SCH (08:00)
[2022-08-08] MEDS: CLOPIDOGREL 75 MG TAB PO SCH (08:00)
[2022-08-08] MEDS: HEPARIN SOD (PORCINE) 5000UNITS/ML 1ML VIAL/SYRINGE SC SCH ×2 (08:00→21:25)
[2022-08-08] MEDS: ASPIRIN 81MG ENTERIC TABLET PO SCH (08:00)
[2022-08-08] MEDS: VENLAFAXINE **XR** 37.5 MG CAPSULE PO SCH (08:00)
[2022-08-08] MEDS: MIDODRINE 5 MG TAB PO SCH ×2 (08:00→16:20)
[2022-08-08] MEDS: LEVEMIR (INSULIN DETEMIR) 1 UNITS/0.01ML SC SCH (08:01)
[2022-08-08] MEDS: traZODone 50 MG TAB PO SCH (21:24)
[2022-08-08] MEDS: ACETAMINOPHEN TAB 650MG DOSE (2X325MG) PO PRN (21:25)
[2022-08-08] MEDS: SIMVASTATIN 40 MG TAB PO SCH (21:25)
[2022-08-08 23:15] VITALS: BP 94/60
[2022-08-08] MEDS ORDERED: GABAPENTIN 100 MG CAP PO PRN (23:55)
[2022-08-09] MEDS ORDERED: ACETAMINOPHEN 325 MG TAB PO ONE
[2022-08-09] MEDS ORDERED: NORCO, ANEXSIA 5/325MG TABLET (HYDROcodone/ACETAMINOPHEN) PO ONE
[2022-08-09 05:51] LABS: BASO # 0.1 10^3/uL (0.0-0.2); BASO % 0.7 % (0.0-1.0); EOS # 0.2 10^3/uL (0.0-0.5); EOS % 3.3 % (0.0-3.0); HEMATOCRIT 30.9 % (42.0-52.0); HEMOGLOBIN 10.3 g/dl (13.5-17.5); LYMPH % 13.4 % (24.0-44.0); MEAN CORPUSCULAR HEMOGLOBIN 33.9 pg (27.0-33.0); MEAN CORPUSCULAR HGB CONC 33.3 g/dl (32.0-36.5); MEAN CORPUSCULAR VOLUME 101.6 fl (80.0-96.0); MONO # 0.7 10^3/uL (0.0-0.8); NEUTROPHILS # 5.3 10^3/uL (1.5-8.5); NEUTROPHILS % 72.1 % (36.0-66.0); PLATELET COUNT, AUTOMATED 200 10^3/uL (150-450); RED BLOOD COUNT 3.04 10^6/uL (4.30-6.10); WHITE BLOOD COUNT 7.3 10^3/uL (4.0-10.0)
[2022-08-09 06:06] VITALS: BP 91/49
[2022-08-09 06:17] LABS: CREATININE FOR GFR 3.32 MG/DL (0.70-1.30); GLOMERULAR FILTRATION RATE 19.5 (>42); POTASSIUM SERUM 3.9 MMOL/L (3.5-5.1)
[2022-08-09] MEDS: CLOPIDOGREL 75 MG TAB PO SCH (08:08)
[2022-08-09] MEDS: HEPARIN SOD (PORCINE) 5000UNITS/ML 1ML VIAL/SYRINGE SC SCH ×2 (08:08→20:13)
[2022-08-09] MEDS: MIDODRINE 5 MG TAB PO SCH ×2 (08:08→16:52)
[2022-08-09] MEDS: AMIODARONE 200 MG TAB (PACERONE) PO SCH (08:08)
[2022-08-09] MEDS: VENLAFAXINE **XR** 37.5 MG CAPSULE PO SCH (08:08)
[2022-08-09] MEDS: LEVEMIR (INSULIN DETEMIR) 1 UNITS/0.01ML SC SCH (08:09)
[2022-08-09] MEDS: ASPIRIN 81MG ENTERIC TABLET PO SCH (08:09)
[2022-08-09] MEDS: INSULIN LISPRO (NovoLOG) PER UNIT SC SCH ×4 (08:10→20:12)
[2022-08-09] MEDS: DOCUSATE SODIUM 100MG CAPSULE PO SCH ×2 (08:10→20:13)
[2022-08-09] MEDS: SIMVASTATIN 40 MG TAB PO SCH (20:13)
[2022-08-09] MEDS: traZODone 50 MG TAB PO SCH (20:13)
[2022-08-09 22:00] VITALS: BP 100/57
[2022-08-10] MEDS: ACETAMINOPHEN TAB 650MG DOSE (2X325MG) PO PRN ×2 (00:10→17:45)
[2022-08-10 06:00] VITALS: BP 98/50
[2022-08-10] MEDS: ASPIRIN 81MG ENTERIC TABLET PO SCH (06:06)
[2022-08-10] MEDS: HEPARIN SOD (PORCINE) 5000UNITS/ML 1ML VIAL/SYRINGE SC SCH ×2 (06:06→20:45)
[2022-08-10] MEDS: AMIODARONE 200 MG TAB (PACERONE) PO SCH (06:06)
[2022-08-10] MEDS: VENLAFAXINE **XR** 37.5 MG CAPSULE PO SCH (06:06)
[2022-08-10] MEDS: CLOPIDOGREL 75 MG TAB PO SCH (06:06)
[2022-08-10] MEDS: DOCUSATE SODIUM 100MG CAPSULE PO SCH ×2 (06:06→20:45)
[2022-08-10] MEDS: MIDODRINE 5 MG TAB PO SCH ×2 (06:06→16:45)
[2022-08-10] MEDS ORDERED: HEPARIN 1,000UNITS/ML 10ML VIAL (FOR RADIOLOGY & DIALYSIS ONLY) XX SCH (06:55)
[2022-08-10] MEDS ORDERED: LIDOCAINE 1% SDV 5ML VIAL SC PRN (06:55)
[2022-08-10] MEDS ORDERED: HEPARIN 1,000UNITS/ML 10ML VIAL (FOR RADIOLOGY & DIALYSIS ONLY) IV PRN (06:55)
[2022-08-10] MEDS ORDERED: SODIUM CHLORIDE 0.9% 1000ML IV PRN (06:55)
[2022-08-10] MEDS: LEVEMIR (INSULIN DETEMIR) 1 UNITS/0.01ML SC SCH (07:41)
[2022-08-10] MEDS: INSULIN LISPRO (NovoLOG) PER UNIT SC SCH ×4 (07:42→21:00)
[2022-08-10 16:38] VITALS: BP 108/58
[2022-08-10] MEDS: traZODone 50 MG TAB PO SCH (20:45)
[2022-08-10] MEDS: SIMVASTATIN 40 MG TAB PO SCH (20:45)
[2022-08-10] MEDS ORDERED: GABAPENTIN 100 MG CAP PO ONE (21:00)
[2022-08-10 22:53] VITALS: BP 98/54
[2022-08-10] MEDS ORDERED: MORPHINE 2 MG/ML 1ML VIAL IV ONE (23:00)
[2022-08-10] MEDS ORDERED: ACETAMINOPH W/CODEINE #3 TAB UD PO ONE (23:05)
[2022-08-11 06:00] VITALS: BP 88/64
[2022-08-11] MEDS: MIDODRINE 5 MG TAB PO SCH ×2 (06:23→17:15)
[2022-08-11] MEDS: DOCUSATE SODIUM 100MG CAPSULE PO SCH ×2 (08:29→21:29)
[2022-08-11] MEDS: LEVEMIR (INSULIN DETEMIR) 1 UNITS/0.01ML SC SCH (08:29)
[2022-08-11] MEDS: HEPARIN SOD (PORCINE) 5000UNITS/ML 1ML VIAL/SYRINGE SC SCH ×2 (08:29→21:30)
[2022-08-11] MEDS: AMIODARONE 200 MG TAB (PACERONE) PO SCH (08:29)
[2022-08-11] MEDS: VENLAFAXINE **XR** 37.5 MG CAPSULE PO SCH (08:29)
[2022-08-11] MEDS: ASPIRIN 81MG ENTERIC TABLET PO SCH (08:29)
[2022-08-11] MEDS: CLOPIDOGREL 75 MG TAB PO SCH (08:29)
[2022-08-11] MEDS: INSULIN LISPRO (NovoLOG) PER UNIT SC SCH ×4 (08:30→20:23)
[2022-08-11 08:33] VITALS: BP 102/60
[2022-08-11] MEDS: ACETAMINOPHEN TAB 650MG DOSE (2X325MG) PO PRN (17:17)
[2022-08-11] MEDS: SIMVASTATIN 40 MG TAB PO SCH (21:29)
[2022-08-11] MEDS: traZODone 50 MG TAB PO SCH (21:29)
[2022-08-12 06:00] VITALS: BP 99/64
[2022-08-12] MEDS: LEVEMIR (INSULIN DETEMIR) 1 UNITS/0.01ML SC SCH (08:17)
[2022-08-12] MEDS: CLOPIDOGREL 75 MG TAB PO SCH (08:17)
[2022-08-12] MEDS: ASPIRIN 81MG ENTERIC TABLET PO SCH (08:17)
[2022-08-12] MEDS: INSULIN LISPRO (NovoLOG) PER UNIT SC SCH ×4 (08:17→20:06)
[2022-08-12] MEDS: VENLAFAXINE **XR** 37.5 MG CAPSULE PO SCH (08:17)
[2022-08-12] MEDS: DOCUSATE SODIUM 100MG CAPSULE PO SCH ×2 (08:17→19:51)
[2022-08-12] MEDS: MIDODRINE 5 MG TAB PO SCH ×2 (08:17→17:05)
[2022-08-12] MEDS: AMIODARONE 200 MG TAB (PACERONE) PO SCH (08:17)
[2022-08-12] MEDS: HEPARIN SOD (PORCINE) 5000UNITS/ML 1ML VIAL/SYRINGE SC SCH ×2 (08:18→19:53)
[2022-08-12] MEDS: traZODone 50 MG TAB PO SCH (19:51)
[2022-08-12] MEDS: SIMVASTATIN 40 MG TAB PO SCH (19:51)
[2022-08-13 05:00] VITALS: BP 98/63
[2022-08-13] MEDS: VENLAFAXINE **XR** 37.5 MG CAPSULE PO SCH (05:33)
[2022-08-13] MEDS: ASPIRIN 81MG ENTERIC TABLET PO SCH (05:33)
[2022-08-13] MEDS: CLOPIDOGREL 75 MG TAB PO SCH (05:33)
[2022-08-13] MEDS: DOCUSATE SODIUM 100MG CAPSULE PO SCH ×2 (05:33→20:00)
[2022-08-13] MEDS: MIDODRINE 5 MG TAB PO SCH ×2 (05:33→17:11)
[2022-08-13] MEDS: HEPARIN SOD (PORCINE) 5000UNITS/ML 1ML VIAL/SYRINGE SC SCH ×2 (05:35→20:00)
[2022-08-13] MEDS: AMIODARONE 200 MG TAB (PACERONE) PO SCH (05:35)
[2022-08-13] MEDS ORDERED: SODIUM CHLORIDE 0.9% 1000ML IV PRN (07:05)
[2022-08-13] MEDS ORDERED: HEPARIN 1,000UNITS/ML 10ML VIAL (FOR RADIOLOGY & DIALYSIS ONLY) IV PRN (07:05)
[2022-08-13] MEDS ORDERED: LIDOCAINE 1% SDV 5ML VIAL SC PRN (07:05)
[2022-08-13] MEDS ORDERED: HEPARIN 1,000UNITS/ML 10ML VIAL (FOR RADIOLOGY & DIALYSIS ONLY) XX SCH (07:05)
[2022-08-13] MEDS: INSULIN LISPRO (NovoLOG) PER UNIT SC SCH ×4 (07:30→21:00)
[2022-08-13] MEDS: ONDANSETRON 4MG ORAL DISINTEGRATING TAB PO PRN ×2 (08:27→17:11)
[2022-08-13] MEDS: LEVEMIR (INSULIN DETEMIR) 1 UNITS/0.01ML SC SCH (08:28)
[2022-08-13] MEDS: DARBEPOETIN 100MCG/0.5ML *DIALYSIS* SYRINGE IV SCH (14:35)
[2022-08-13] MEDS: SIMVASTATIN 40 MG TAB PO SCH (20:00)
[2022-08-13] MEDS: traZODone 50 MG TAB PO SCH (20:00)
[2022-08-14 05:56] VITALS: BP 99/62
[2022-08-14] MEDS: HEPARIN SOD (PORCINE) 5000UNITS/ML 1ML VIAL/SYRINGE SC SCH ×2 (08:01→21:27)
[2022-08-14] MEDS: LEVEMIR (INSULIN DETEMIR) 1 UNITS/0.01ML SC SCH (08:02)
[2022-08-14] MEDS: DOCUSATE SODIUM 100MG CAPSULE PO SCH ×2 (08:02→21:26)
[2022-08-14] MEDS: ASPIRIN 81MG ENTERIC TABLET PO SCH (08:02)
[2022-08-14] MEDS: INSULIN LISPRO (NovoLOG) PER UNIT SC SCH ×4 (08:02→21:00)
[2022-08-14] MEDS: MIDODRINE 5 MG TAB PO SCH ×2 (08:03→16:36)
[2022-08-14] MEDS: VENLAFAXINE **XR** 37.5 MG CAPSULE PO SCH (08:03)
[2022-08-14] MEDS: AMIODARONE 200 MG TAB (PACERONE) PO SCH (08:03)
[2022-08-14] MEDS: CLOPIDOGREL 75 MG TAB PO SCH (08:03)
[2022-08-14 16:36] VITALS: BP 103/63
[2022-08-14] MEDS: traZODone 50 MG TAB PO SCH (21:26)
[2022-08-14] MEDS: SIMVASTATIN 40 MG TAB PO SCH (21:26)
[2022-08-14] MEDS: ACETAMINOPHEN TAB 650MG DOSE (2X325MG) PO PRN (23:55)
[2022-08-15 05:23] VITALS: BP 92/48
[2022-08-15] MEDS: VENLAFAXINE **XR** 37.5 MG CAPSULE PO SCH (05:26)
[2022-08-15] MEDS: MIDODRINE 5 MG TAB PO SCH ×2 (05:26→15:30)
[2022-08-15] MEDS: ASPIRIN 81MG ENTERIC TABLET PO SCH (05:26)
[2022-08-15] MEDS: AMIODARONE 200 MG TAB (PACERONE) PO SCH (05:26)
[2022-08-15] MEDS: CLOPIDOGREL 75 MG TAB PO SCH (05:26)
[2022-08-15] MEDS: DOCUSATE SODIUM 100MG CAPSULE PO SCH ×2 (05:26→20:55)
[2022-08-15] MEDS: HEPARIN SOD (PORCINE) 5000UNITS/ML 1ML VIAL/SYRINGE SC SCH ×2 (05:27→20:55)
[2022-08-15 06:36] LABS: HEMATOCRIT 32.9 % (42.0-52.0); HEMOGLOBIN 10.8 g/dl (13.5-17.5); MEAN CORPUSCULAR HEMOGLOBIN 33.6 pg (27.0-33.0); MEAN CORPUSCULAR HGB CONC 32.8 g/dl (32.0-36.5); MEAN CORPUSCULAR VOLUME 102.5 fl (80.0-96.0); PLATELET COUNT, AUTOMATED 199 10^3/uL (150-450); RED BLOOD COUNT 3.21 10^6/uL (4.30-6.10); WHITE BLOOD COUNT 7.3 10^3/uL (4.0-10.0)
[2022-08-15 07:03] LABS: ALBUMIN 2.4 G/DL (3.2-5.2); CALCIUM LEVEL 8.1 MG/DL (8.3-10.6); CREATININE FOR GFR 4.19 MG/DL (0.70-1.30); GLOMERULAR FILTRATION RATE 14.9 (>42); PHOSPHORUS LEVEL 10.5 MG/DL (2.4-5.1)
[2022-08-15] MEDS ORDERED: LIDOCAINE 1% SDV 5ML VIAL SC PRN (07:05)
[2022-08-15] MEDS ORDERED: HEPARIN 1,000UNITS/ML 10ML VIAL (FOR RADIOLOGY & DIALYSIS ONLY) IV PRN (07:05)
[2022-08-15] MEDS ORDERED: SODIUM CHLORIDE 0.9% 1000ML IV PRN (07:05)
[2022-08-15] MEDS ORDERED: HEPARIN 1,000UNITS/ML 10ML VIAL (FOR RADIOLOGY & DIALYSIS ONLY) XX SCH (07:05)
[2022-08-15] MEDS: INSULIN LISPRO (NovoLOG) PER UNIT SC SCH ×4 (07:30→20:29)
[2022-08-15] MEDS: LEVEMIR (INSULIN DETEMIR) 1 UNITS/0.01ML SC SCH (09:00)
[2022-08-15 14:45] VITALS: BP 92/49
[2022-08-15] MEDS: traZODone 50 MG TAB PO SCH (20:55)
[2022-08-15] MEDS: SIMVASTATIN 40 MG TAB PO SCH (20:55)
[2022-08-15] MEDS: ACETAMINOPHEN TAB 650MG DOSE (2X325MG) PO PRN (20:56)
[2022-08-15 23:33] VITALS: BP 95/51
[2022-08-16] MEDS ORDERED: traMADol 50 MG TAB PO ONE (00:35)
[2022-08-16 06:00] VITALS: BP 101/52
[2022-08-16] MEDS: MIDODRINE 5 MG TAB PO SCH ×2 (09:17→16:27)
[2022-08-16] MEDS: DOCUSATE SODIUM 100MG CAPSULE PO SCH ×2 (09:17→19:43)
[2022-08-16] MEDS: VENLAFAXINE **XR** 37.5 MG CAPSULE PO SCH (09:17)
[2022-08-16] MEDS: ASPIRIN 81MG ENTERIC TABLET PO SCH (09:17)
[2022-08-16] MEDS: CLOPIDOGREL 75 MG TAB PO SCH (09:17)
[2022-08-16] MEDS: AMIODARONE 200 MG TAB (PACERONE) PO SCH (09:17)
[2022-08-16] MEDS: INSULIN LISPRO (NovoLOG) PER UNIT SC SCH ×4 (09:18→19:40)
[2022-08-16] MEDS: LEVEMIR (INSULIN DETEMIR) 1 UNITS/0.01ML SC SCH (09:18)
[2022-08-16] MEDS: HEPARIN SOD (PORCINE) 5000UNITS/ML 1ML VIAL/SYRINGE SC SCH ×2 (09:18→19:44)
[2022-08-16] MEDS: ACETAMINOPHEN TAB 650MG DOSE (2X325MG) PO PRN ×2 (09:18→19:44)
[2022-08-16] MEDS: SIMVASTATIN 40 MG TAB PO SCH (19:43)
[2022-08-16] MEDS: traZODone 50 MG TAB PO SCH (19:43)
[2022-08-17 05:27] VITALS: BP 99/51
[2022-08-17] MEDS: DOCUSATE SODIUM 100MG CAPSULE PO SCH ×2 (05:38→18:27)
[2022-08-17] MEDS: AMIODARONE 200 MG TAB (PACERONE) PO SCH (05:39)
[2022-08-17] MEDS: CLOPIDOGREL 75 MG TAB PO SCH (05:39)
[2022-08-17] MEDS: MIDODRINE 5 MG TAB PO SCH ×2 (05:39→15:38)
[2022-08-17] MEDS: ASPIRIN 81MG ENTERIC TABLET PO SCH (05:39)
[2022-08-17] MEDS: VENLAFAXINE **XR** 37.5 MG CAPSULE PO SCH (05:39)
[2022-08-17] MEDS: HEPARIN SOD (PORCINE) 5000UNITS/ML 1ML VIAL/SYRINGE SC SCH ×2 (05:40→18:26)
[2022-08-17] MEDS ORDERED: LIDOCAINE 1% SDV 5ML VIAL SC PRN (07:05)
[2022-08-17] MEDS ORDERED: SODIUM CHLORIDE 0.9% 1000ML IV PRN (07:05)
[2022-08-17] MEDS ORDERED: HEPARIN 1,000UNITS/ML 10ML VIAL (FOR RADIOLOGY & DIALYSIS ONLY) IV PRN (07:05)
[2022-08-17] MEDS ORDERED: HEPARIN 1,000UNITS/ML 10ML VIAL (FOR RADIOLOGY & DIALYSIS ONLY) XX SCH (07:05)
[2022-08-17] MEDS: LEVEMIR (INSULIN DETEMIR) 1 UNITS/0.01ML SC SCH (07:26)
[2022-08-17] MEDS: INSULIN LISPRO (NovoLOG) PER UNIT SC SCH ×4 (07:26→21:00)
[2022-08-17] MEDS: SIMVASTATIN 40 MG TAB PO SCH (18:27)
[2022-08-17] MEDS: traZODone 50 MG TAB PO SCH (21:27)
[2022-08-18 05:32] VITALS: BP 99/59
[2022-08-18] MEDS: MIDODRINE 5 MG TAB PO SCH ×2 (08:38→17:35)
[2022-08-18] MEDS: HEPARIN SOD (PORCINE) 5000UNITS/ML 1ML VIAL/SYRINGE SC SCH ×2 (08:38→20:45)
[2022-08-18] MEDS: VENLAFAXINE **XR** 37.5 MG CAPSULE PO SCH (08:38)
[2022-08-18] MEDS: CLOPIDOGREL 75 MG TAB PO SCH (08:38)
[2022-08-18] MEDS: AMIODARONE 200 MG TAB (PACERONE) PO SCH (08:38)
[2022-08-18] MEDS: ASPIRIN 81MG ENTERIC TABLET PO SCH (08:38)
[2022-08-18] MEDS: DOCUSATE SODIUM 100MG CAPSULE PO SCH ×2 (08:38→20:45)
[2022-08-18] MEDS: ONDANSETRON 4MG ORAL DISINTEGRATING TAB PO PRN ×2 (08:42→22:27)
[2022-08-18] MEDS: LEVEMIR (INSULIN DETEMIR) 1 UNITS/0.01ML SC SCH (08:43)
[2022-08-18] MEDS: INSULIN LISPRO (NovoLOG) PER UNIT SC SCH ×4 (08:43→20:43)
[2022-08-18] MEDS: SIMVASTATIN 40 MG TAB PO SCH (20:45)
[2022-08-18] MEDS: traZODone 50 MG TAB PO SCH (20:45)
[2022-08-18] MEDS: ACETAMINOPHEN TAB 650MG DOSE (2X325MG) PO PRN (23:47)
[2022-08-19 05:20] VITALS: BP 98/54
[2022-08-19] MEDS: CLOPIDOGREL 75 MG TAB PO SCH (09:03)
[2022-08-19] MEDS: AMIODARONE 200 MG TAB (PACERONE) PO SCH (09:03)
[2022-08-19] MEDS: ASPIRIN 81MG ENTERIC TABLET PO SCH (09:03)
[2022-08-19] MEDS: HEPARIN SOD (PORCINE) 5000UNITS/ML 1ML VIAL/SYRINGE SC SCH ×2 (09:03→21:32)
[2022-08-19] MEDS: MIDODRINE 5 MG TAB PO SCH ×2 (09:03→16:59)
[2022-08-19] MEDS: DOCUSATE SODIUM 100MG CAPSULE PO SCH ×2 (09:03→21:32)
[2022-08-19] MEDS: INSULIN LISPRO (NovoLOG) PER UNIT SC SCH ×4 (09:04→21:00)
[2022-08-19] MEDS: LEVEMIR (INSULIN DETEMIR) 1 UNITS/0.01ML SC SCH (09:04)
[2022-08-19] MEDS: VENLAFAXINE **XR** 37.5 MG CAPSULE PO SCH (09:05)
[2022-08-19] MEDS: ACETAMINOPHEN TAB 650MG DOSE (2X325MG) PO PRN ×2 (16:59→21:32)
[2022-08-19] MEDS: traZODone 50 MG TAB PO SCH (21:32)
[2022-08-19] MEDS: SIMVASTATIN 40 MG TAB PO SCH (21:32)
[2022-08-20] MEDS: ACETAMINOPHEN TAB 650MG DOSE (2X325MG) PO PRN ×3 (01:48→21:59)
[2022-08-20 06:00] VITALS: BP 102/60
[2022-08-20] MEDS ORDERED: LIDOCAINE 1% SDV 5ML VIAL SC PRN (06:00)
[2022-08-20] MEDS ORDERED: HEPARIN 1,000UNITS/ML 10ML VIAL (FOR RADIOLOGY & DIALYSIS ONLY) IV PRN (06:00)
[2022-08-20] MEDS ORDERED: SODIUM CHLORIDE 0.9% 1000ML IV PRN (06:00)
[2022-08-20] MEDS ORDERED: HEPARIN 1,000UNITS/ML 10ML VIAL (FOR RADIOLOGY & DIALYSIS ONLY) XX SCH (06:00)
[2022-08-20] MEDS: VENLAFAXINE **XR** 37.5 MG CAPSULE PO SCH (06:40)
[2022-08-20] MEDS: DOCUSATE SODIUM 100MG CAPSULE PO SCH ×2 (06:40→21:59)
[2022-08-20] MEDS: AMIODARONE 200 MG TAB (PACERONE) PO SCH (06:40)
[2022-08-20] MEDS: ASPIRIN 81MG ENTERIC TABLET PO SCH (06:40)
[2022-08-20] MEDS: MIDODRINE 5 MG TAB PO SCH ×2 (06:40→15:06)
[2022-08-20] MEDS: HEPARIN SOD (PORCINE) 5000UNITS/ML 1ML VIAL/SYRINGE SC SCH ×2 (06:40→21:59)
[2022-08-20] MEDS: CLOPIDOGREL 75 MG TAB PO SCH (06:42)
[2022-08-20] MEDS: INSULIN LISPRO (NovoLOG) PER UNIT SC SCH ×4 (07:30→21:00)
[2022-08-20] MEDS: DARBEPOETIN 100MCG/0.5ML *DIALYSIS* SYRINGE IV SCH (10:24)
[2022-08-20] MEDS: LEVEMIR (INSULIN DETEMIR) 1 UNITS/0.01ML SC SCH (13:05)
[2022-08-20] MEDS: SIMVASTATIN 40 MG TAB PO SCH (21:59)
[2022-08-20] MEDS: traZODone 50 MG TAB PO SCH (21:59)
[2022-08-20] MEDS: ONDANSETRON 4MG ORAL DISINTEGRATING TAB PO PRN (23:16)
[2022-08-21 00:42] VITALS: BP 86/50
[2022-08-21] MEDS ORDERED: ACETAMINOPHEN 325 MG TAB PO ONE (01:00)
[2022-08-21] MEDS ORDERED: traMADol 50 MG TAB PO ONE (01:00)
[2022-08-21] MEDS ORDERED: MIDODRINE 2.5 MG TAB PO ONE (01:00)
[2022-08-21 02:35] VITALS: BP 116/58
[2022-08-21 05:30] VITALS: BP 98/50
[2022-08-21] MEDS: LEVEMIR (INSULIN DETEMIR) 1 UNITS/0.01ML SC SCH (08:46)
[2022-08-21] MEDS: INSULIN LISPRO (NovoLOG) PER UNIT SC SCH ×4 (08:46→21:00)
[2022-08-21] MEDS: HEPARIN SOD (PORCINE) 5000UNITS/ML 1ML VIAL/SYRINGE SC SCH ×2 (08:47→21:52)
[2022-08-21] MEDS: DOCUSATE SODIUM 100MG CAPSULE PO SCH ×2 (08:48→21:51)
[2022-08-21] MEDS: ACETAMINOPHEN TAB 650MG DOSE (2X325MG) PO PRN ×2 (08:48→16:32)
[2022-08-21] MEDS: MIDODRINE 5 MG TAB PO SCH ×2 (08:49→16:33)
[2022-08-21] MEDS: ASPIRIN 81MG ENTERIC TABLET PO SCH (08:49)
[2022-08-21] MEDS: AMIODARONE 200 MG TAB (PACERONE) PO SCH (08:49)
[2022-08-21] MEDS: CLOPIDOGREL 75 MG TAB PO SCH (08:49)
[2022-08-21] MEDS: VENLAFAXINE **XR** 37.5 MG CAPSULE PO SCH (08:49)
[2022-08-21 09:35] LABS: BASO # 0.1 10^3/uL (0.0-0.2); BASO % 0.6 % (0.0-1.0); EOS # 0.3 10^3/uL (0.0-0.5); EOS % 4.1 % (0.0-3.0); HEMATOCRIT 37.2 % (42.0-52.0); HEMOGLOBIN 12.3 g/dl (13.5-17.5); LYMPH # 1.2 10^3/uL (1.5-5.0); LYMPH % 14.7 % (24.0-44.0); MEAN CORPUSCULAR HEMOGLOBIN 33.6 pg (27.0-33.0); MEAN CORPUSCULAR HGB CONC 33.1 g/dl (32.0-36.5); MEAN CORPUSCULAR VOLUME 101.6 fl (80.0-96.0); MONO # 0.7 10^3/uL (0.0-0.8); MONO % 8.6 % (2.0-8.0); NEUTROPHILS % 71.4 % (36.0-66.0); PLATELET COUNT, AUTOMATED 250 10^3/uL (150-450); RED BLOOD COUNT 3.66 10^6/uL (4.30-6.10); WHITE BLOOD COUNT 8.3 10^3/uL (4.0-10.0)
[2022-08-21 09:59] LABS: ALBUMIN 2.4 G/DL (3.2-5.2); BILIRUBIN,TOTAL 0.6 MG/DL (0.3-1.2); CALCIUM LEVEL 8.2 MG/DL (8.3-10.6); CREATININE FOR GFR 3.68 MG/DL (0.70-1.30); GLOMERULAR FILTRATION RATE 17.3 (>42); POTASSIUM SERUM 4.3 MMOL/L (3.5-5.1); TOTAL PROTEIN 6.8 G/DL (5.7-8.2)
[2022-08-21] MEDS: ONDANSETRON 4MG ORAL DISINTEGRATING TAB PO PRN (17:34)
[2022-08-21] MEDS: traZODone 50 MG TAB PO SCH (21:51)
[2022-08-21] MEDS: SIMVASTATIN 40 MG TAB PO SCH (21:51)
[2022-08-22 05:55] VITALS: BP 101/61
[2022-08-22] MEDS: DOCUSATE SODIUM 100MG CAPSULE PO SCH ×2 (05:58→21:05)
[2022-08-22] MEDS: CLOPIDOGREL 75 MG TAB PO SCH (05:58)
[2022-08-22] MEDS: AMIODARONE 200 MG TAB (PACERONE) PO SCH (05:58)
[2022-08-22] MEDS: MIDODRINE 5 MG TAB PO SCH ×2 (05:59→16:47)
[2022-08-22] MEDS: HEPARIN SOD (PORCINE) 5000UNITS/ML 1ML VIAL/SYRINGE SC SCH ×2 (05:59→21:05)
[2022-08-22] MEDS: ASPIRIN 81MG ENTERIC TABLET PO SCH (05:59)
[2022-08-22] MEDS ORDERED: HEPARIN 1,000UNITS/ML 10ML VIAL (FOR RADIOLOGY & DIALYSIS ONLY) XX SCH (06:00)
[2022-08-22] MEDS ORDERED: SODIUM CHLORIDE 0.9% 1000ML IV PRN (06:00)
[2022-08-22] MEDS ORDERED: HEPARIN 1,000UNITS/ML 10ML VIAL (FOR RADIOLOGY & DIALYSIS ONLY) IV PRN (06:00)
[2022-08-22] MEDS ORDERED: LIDOCAINE 1% SDV 5ML VIAL SC PRN (06:00)
[2022-08-22] MEDS: VENLAFAXINE **XR** 37.5 MG CAPSULE PO SCH (06:01)
[2022-08-22] MEDS: INSULIN LISPRO (NovoLOG) PER UNIT SC SCH ×4 (07:56→20:26)
[2022-08-22] MEDS: ACETAMINOPHEN TAB 650MG DOSE (2X325MG) PO PRN ×2 (07:56→21:05)
[2022-08-22] MEDS: LEVEMIR (INSULIN DETEMIR) 1 UNITS/0.01ML SC SCH (12:08)
[2022-08-22 16:45] VITALS: BP 101/60
[2022-08-22] MEDS: traZODone 50 MG TAB PO SCH (21:05)
[2022-08-22] MEDS: SIMVASTATIN 40 MG TAB PO SCH (21:05)
[2022-08-22 22:54] VITALS: BP 96/58
[2022-08-22] MEDS: traMADol 50 MG TAB PO PRN (23:32)
[2022-08-23 00:35] VITALS: BP 90/46
[2022-08-23 06:00] VITALS: BP 100/60
[2022-08-23] MEDS: INSULIN LISPRO (NovoLOG) PER UNIT SC SCH ×4 (07:30→21:00)
[2022-08-23 09:18] VITALS: BP 98/52
[2022-08-23] MEDS: AMIODARONE 200 MG TAB (PACERONE) PO SCH (09:19)
[2022-08-23] MEDS: MIDODRINE 5 MG TAB PO SCH ×2 (09:19→17:02)
[2022-08-23] MEDS: ASPIRIN 81MG ENTERIC TABLET PO SCH (09:19)
[2022-08-23] MEDS: CLOPIDOGREL 75 MG TAB PO SCH (09:19)
[2022-08-23] MEDS: VENLAFAXINE **XR** 37.5 MG CAPSULE PO SCH (09:19)
[2022-08-23] MEDS: DOCUSATE SODIUM 100MG CAPSULE PO SCH ×2 (09:19→21:58)
[2022-08-23] MEDS: HEPARIN SOD (PORCINE) 5000UNITS/ML 1ML VIAL/SYRINGE SC SCH ×2 (09:20→21:58)
[2022-08-23] MEDS: LEVEMIR (INSULIN DETEMIR) 1 UNITS/0.01ML SC SCH (09:20)
[2022-08-23] MEDS: ONDANSETRON 4MG ORAL DISINTEGRATING TAB PO PRN (10:40)
[2022-08-23 14:00] VITALS: BP 91/57
[2022-08-23] MEDS: traZODone 50 MG TAB PO SCH (21:58)
[2022-08-23] MEDS: ACETAMINOPHEN TAB 650MG DOSE (2X325MG) PO PRN (21:58)
[2022-08-23] MEDS: SIMVASTATIN 40 MG TAB PO SCH (21:58)
[2022-08-24 06:06] VITALS: BP 99/58
[2022-08-24] MEDS ORDERED: SODIUM CHLORIDE 0.9% 1000ML IV PRN (07:00)
[2022-08-24] MEDS ORDERED: HEPARIN 1,000UNITS/ML 10ML VIAL (FOR RADIOLOGY & DIALYSIS ONLY) XX SCH (07:00)
[2022-08-24] MEDS ORDERED: LIDOCAINE 1% SDV 5ML VIAL SC PRN (07:00)
[2022-08-24] MEDS ORDERED: HEPARIN 1,000UNITS/ML 10ML VIAL (FOR RADIOLOGY & DIALYSIS ONLY) IV PRN (07:00)
[2022-08-24] MEDS: AMIODARONE 200 MG TAB (PACERONE) PO SCH (07:20)
[2022-08-24] MEDS: VENLAFAXINE **XR** 37.5 MG CAPSULE PO SCH (07:20)
[2022-08-24] MEDS: MIDODRINE 5 MG TAB PO SCH ×2 (07:20→17:39)
[2022-08-24] MEDS: DOCUSATE SODIUM 100MG CAPSULE PO SCH ×2 (07:20→20:43)
[2022-08-24] MEDS: CLOPIDOGREL 75 MG TAB PO SCH (07:20)
[2022-08-24] MEDS: ASPIRIN 81MG ENTERIC TABLET PO SCH (07:20)
[2022-08-24] MEDS: INSULIN LISPRO (NovoLOG) PER UNIT SC SCH ×4 (07:21→20:45)
[2022-08-24] MEDS: LEVEMIR (INSULIN DETEMIR) 1 UNITS/0.01ML SC SCH (07:21)
[2022-08-24] MEDS: HEPARIN SOD (PORCINE) 5000UNITS/ML 1ML VIAL/SYRINGE SC SCH ×2 (07:21→20:44)
[2022-08-24] MEDS: DARBEPOETIN 100MCG/0.5ML *DIALYSIS* SYRINGE IV SCH (08:19)
[2022-08-24] MEDS: traMADol 50 MG TAB PO PRN (17:40)
[2022-08-24] MEDS: traZODone 50 MG TAB PO SCH (20:44)
[2022-08-24] MEDS: SIMVASTATIN 40 MG TAB PO SCH (20:44)
[2022-08-25 06:00] VITALS: BP 114/87
[2022-08-25] MEDS: ASPIRIN 81MG ENTERIC TABLET PO SCH (08:16)
[2022-08-25] MEDS: MIDODRINE 5 MG TAB PO SCH (08:16)
[2022-08-25] MEDS: DOCUSATE SODIUM 100MG CAPSULE PO SCH ×2 (08:16→20:07)
[2022-08-25] MEDS: CLOPIDOGREL 75 MG TAB PO SCH (08:16)
[2022-08-25] MEDS: INSULIN LISPRO (NovoLOG) PER UNIT SC SCH ×4 (08:16→21:00)
[2022-08-25] MEDS: LEVEMIR (INSULIN DETEMIR) 1 UNITS/0.01ML SC SCH (08:16)
[2022-08-25] MEDS: AMIODARONE 200 MG TAB (PACERONE) PO SCH (08:16)
[2022-08-25] MEDS: HEPARIN SOD (PORCINE) 5000UNITS/ML 1ML VIAL/SYRINGE SC SCH ×2 (08:17→20:08)
[2022-08-25] MEDS: VENLAFAXINE **XR** 37.5 MG CAPSULE PO SCH (08:31)
[2022-08-25 11:00] VITALS: BP 88/52
[2022-08-25 11:02] VITALS: BP 82/50
[2022-08-25] MEDS: ACETAMINOPHEN TAB 650MG DOSE (2X325MG) PO PRN (11:11)
[2022-08-25] MEDS ORDERED: MIDODRINE 2.5 MG TAB PO ONE (11:30)
[2022-08-25 13:47] VITALS: BP 95/54
[2022-08-25 16:29] VITALS: BP 95/53
[2022-08-25] MEDS: MIDODRINE 2.5 MG TAB PO SCH (16:53)
[2022-08-25] MEDS: SIMVASTATIN 40 MG TAB PO SCH (20:07)
[2022-08-25] MEDS: traZODone 50 MG TAB PO SCH (20:07)
[2022-08-26 00:28] VITALS: BP 99/56
[2022-08-26] MEDS: traMADol 50 MG TAB PO PRN ×2 (00:28→20:53)
[2022-08-26 05:40] VITALS: BP 96/58
[2022-08-26] MEDS: INSULIN LISPRO (NovoLOG) PER UNIT SC SCH ×4 (08:40→20:10)
[2022-08-26] MEDS: DOCUSATE SODIUM 100MG CAPSULE PO SCH ×2 (08:41→20:52)
[2022-08-26] MEDS: MIDODRINE 2.5 MG TAB PO SCH ×2 (08:41→15:09)
[2022-08-26] MEDS: VENLAFAXINE **XR** 37.5 MG CAPSULE PO SCH (08:41)
[2022-08-26] MEDS: AMIODARONE 200 MG TAB (PACERONE) PO SCH (08:41)
[2022-08-26] MEDS: LEVEMIR (INSULIN DETEMIR) 1 UNITS/0.01ML SC SCH (08:41)
[2022-08-26] MEDS: ASPIRIN 81MG ENTERIC TABLET PO SCH (08:41)
[2022-08-26] MEDS: CLOPIDOGREL 75 MG TAB PO SCH (08:41)
[2022-08-26] MEDS: HEPARIN SOD (PORCINE) 5000UNITS/ML 1ML VIAL/SYRINGE SC SCH ×2 (08:42→20:52)
[2022-08-26] MEDS: ONDANSETRON 4MG ORAL DISINTEGRATING TAB PO PRN (11:19)
[2022-08-26 20:45] VITALS: BP 100/60
[2022-08-26] MEDS: SIMVASTATIN 40 MG TAB PO SCH (20:52)
[2022-08-26] MEDS: traZODone 50 MG TAB PO SCH (20:53)
[2022-08-27 06:00] VITALS: BP 88/54
[2022-08-27] MEDS: DOCUSATE SODIUM 100MG CAPSULE PO SCH ×2 (06:34→20:49)
[2022-08-27] MEDS: MIDODRINE 2.5 MG TAB PO SCH ×2 (06:35→16:52)
[2022-08-27] MEDS: AMIODARONE 200 MG TAB (PACERONE) PO SCH (06:35)
[2022-08-27] MEDS: CLOPIDOGREL 75 MG TAB PO SCH (06:35)
[2022-08-27] MEDS: VENLAFAXINE **XR** 37.5 MG CAPSULE PO SCH (06:35)
[2022-08-27] MEDS: ASPIRIN 81MG ENTERIC TABLET PO SCH (06:35)
[2022-08-27] MEDS: HEPARIN SOD (PORCINE) 5000UNITS/ML 1ML VIAL/SYRINGE SC SCH ×2 (06:36→20:49)
[2022-08-27] MEDS ORDERED: SODIUM CHLORIDE 0.9% 1000ML IV PRN (07:00)
[2022-08-27] MEDS ORDERED: HEPARIN 1,000UNITS/ML 10ML VIAL (FOR RADIOLOGY & DIALYSIS ONLY) XX SCH (07:00)
[2022-08-27] MEDS ORDERED: LIDOCAINE 1% SDV 5ML VIAL SC PRN (07:00)
[2022-08-27] MEDS ORDERED: HEPARIN 1,000UNITS/ML 10ML VIAL (FOR RADIOLOGY & DIALYSIS ONLY) IV PRN (07:00)
[2022-08-27] MEDS: INSULIN LISPRO (NovoLOG) PER UNIT SC SCH ×4 (07:06→20:42)
[2022-08-27 07:33] LABS: HEMATOCRIT 36.4 % (42.0-52.0); HEMOGLOBIN 12.3 g/dl (13.5-17.5); MEAN CORPUSCULAR HEMOGLOBIN 34.3 pg (27.0-33.0); MEAN CORPUSCULAR HGB CONC 33.8 g/dl (32.0-36.5); MEAN CORPUSCULAR VOLUME 101.4 fl (80.0-96.0); PLATELET COUNT, AUTOMATED 244 10^3/uL (150-450); RED BLOOD COUNT 3.59 10^6/uL (4.30-6.10); WHITE BLOOD COUNT 11.6 10^3/uL (4.0-10.0)
[2022-08-27] MEDS: ONDANSETRON 4MG ORAL DISINTEGRATING TAB PO PRN ×2 (07:45→19:34)
[2022-08-27] MEDS: LEVEMIR (INSULIN DETEMIR) 1 UNITS/0.01ML SC SCH (07:46)
[2022-08-27 08:03] LABS: ALBUMIN 2.3 G/DL (3.2-5.2); CALCIUM LEVEL 8.3 MG/DL (8.3-10.6); CREATININE FOR GFR 4.73 MG/DL (0.70-1.30); PHOSPHORUS LEVEL 11.4 MG/DL (2.4-5.1); POTASSIUM SERUM 4.9 MMOL/L (3.5-5.1)
[2022-08-27] MEDS: traMADol 50 MG TAB PO PRN (14:46)
[2022-08-27] MEDS: ACETAMINOPHEN TAB 650MG DOSE (2X325MG) PO PRN (19:34)
[2022-08-27] MEDS: SIMVASTATIN 40 MG TAB PO SCH (20:49)
[2022-08-27] MEDS: traZODone 50 MG TAB PO SCH (20:49)
[2022-08-28] VITALS (11 sets, daily range): BP systolic 60–136; BP diastolic 40–73
[2022-08-28] MEDS: ACETAMINOPHEN TAB 650MG DOSE (2X325MG) PO PRN ×3 (00:03→20:06)
[2022-08-28] MEDS: traMADol 50 MG TAB PO PRN (03:08)
[2022-08-28] MEDS: ASPIRIN 81MG ENTERIC TABLET PO SCH (09:03)
[2022-08-28] MEDS: AMIODARONE 200 MG TAB (PACERONE) PO SCH (09:03)
[2022-08-28] MEDS: DOCUSATE SODIUM 100MG CAPSULE PO SCH ×2 (09:03→20:05)
[2022-08-28] MEDS: CLOPIDOGREL 75 MG TAB PO SCH (09:03)
[2022-08-28] MEDS: INSULIN LISPRO (NovoLOG) PER UNIT SC SCH ×4 (09:05→20:48)
[2022-08-28] MEDS: LEVEMIR (INSULIN DETEMIR) 1 UNITS/0.01ML SC SCH (09:05)
[2022-08-28] MEDS: HEPARIN SOD (PORCINE) 5000UNITS/ML 1ML VIAL/SYRINGE SC SCH ×2 (09:06→20:06)
[2022-08-28] MEDS: VENLAFAXINE **XR** 37.5 MG CAPSULE PO SCH (09:11)
[2022-08-28] MEDS: MIDODRINE 2.5 MG TAB PO SCH ×2 (09:11→14:29)
[2022-08-28] MEDS ORDERED: traMADol 50 MG TAB PO PRN (14:00)
[2022-08-28] MEDS: (RENVELA) SEVELAMER **CARBONate** 800 MG TAB PO SCH ×2 (14:29→18:00)
[2022-08-28] MEDS: ONDANSETRON 4MG ORAL DISINTEGRATING TAB PO PRN (14:34)
[2022-08-28] MEDS: SIMVASTATIN 40 MG TAB PO SCH (20:05)
[2022-08-28] MEDS: traZODone 50 MG TAB PO SCH (20:05)
[2022-08-28] MEDS ORDERED: SODIUM CHLORIDE 0.9% 1000ML IV ONE ×2 (21:15→23:05)
[2022-08-28 22:24] LABS: BASO # 0.1 10^3/uL (0.0-0.2); BASO % 0.3 % (0.0-1.0); HEMATOCRIT 34.5 % (42.0-52.0); HEMOGLOBIN 11.7 g/dl (13.5-17.5); LYMPH # 0.6 10^3/uL (1.5-5.0); LYMPH % 1.6 % (24.0-44.0); MEAN CORPUSCULAR HEMOGLOBIN 33.6 pg (27.0-33.0); MEAN CORPUSCULAR HGB CONC 33.9 g/dl (32.0-36.5); MEAN CORPUSCULAR VOLUME 99.1 fl (80.0-96.0); MONO % 5.1 % (2.0-8.0); NEUTROPHILS # 33.3 10^3/uL (1.5-8.5); NEUTROPHILS % 91.4 % (36.0-66.0); PLATELET COUNT, AUTOMATED 235 10^3/uL (150-450); RED BLOOD COUNT 3.48 10^6/uL (4.30-6.10)
[2022-08-28 22:29] LABS: MONO # 1.9 10^3/uL (0.0-0.8); WHITE BLOOD COUNT 36.4 10^3/uL (4.0-10.0)
[2022-08-28] MEDS ORDERED: VANCOMYCIN HCL 1,000 MG, VIAL MATE ADAPTER 1 EACH in NS 250 ML IV SCH (22:35)
[2022-08-28] MEDS: NOREPINEPHRINE 4MG IN D5 250ML 4 MG in IV 1 EA IV SCH ×2 (22:55)
[2022-08-28 22:57] LABS: MAGNESIUM LEVEL 1.6 MG/DL (1.8-2.4)
[2022-08-28 23:01] LABS: CALCIUM LEVEL 8.1 MG/DL (8.3-10.6); CREATININE FOR GFR 4.06 MG/DL (0.70-1.30); GLOMERULAR FILTRATION RATE 15.5 (>42); POTASSIUM SERUM 5.5 MMOL/L (3.5-5.1)
[2022-08-28 23:08] LABS: ABG BASE EXCESS -5.9 (-2.0-2.0); ABG HCO3 18.1 MEQ/L (22.0-26.0); ABG O2 SATURATION 99.7 % (95.0-99.0); ABG PARTIAL PRESSURE CO2 30.9 mmHg (35.0-45.0); ABG PARTIAL PRESSURE O2 174.6 mmHg (75.0-100.0); ABG STANDARD HCO3 19.7 MEQ/L (22.0-26.0); ABG pH (ARTERIAL) 7.385 UNITS (7.350-7.450)
[2022-08-29] VITALS (79 sets, daily range): BP systolic 71–134; BP diastolic 42–86
[2022-08-29] MEDS: PIPERACILLIN/TAZOBACTAM SOD 2.25 GM in D5W MINI-BAG PLUS 50 ML IV SCH ×2 (00:02→08:21)
[2022-08-29] MEDS ORDERED: VANCOMYCIN HCL 1,000 MG, VIAL MATE ADAPTER 1 EACH in D5W 250 ML IV ONE (01:00)
[2022-08-29] MEDS ORDERED: VANCOMYCIN HCL 750 MG, VIAL MATE ADAPTER 1 EACH in D5W 250 ML IV ONE ×2 (01:00→02:00)
[2022-08-29 06:30] LABS: BASO # 0.1 10^3/uL (0.0-0.2); BASO % 0.3 % (0.0-1.0); EOS % 0.1 % (0.0-3.0); HEMATOCRIT 36.4 % (42.0-52.0); HEMOGLOBIN 12.3 g/dl (13.5-17.5); LYMPH # 0.6 10^3/uL (1.5-5.0); LYMPH % 1.9 % (24.0-44.0); MEAN CORPUSCULAR HEMOGLOBIN 34.2 pg (27.0-33.0); MEAN CORPUSCULAR HGB CONC 33.8 g/dl (32.0-36.5); MEAN CORPUSCULAR VOLUME 101.1 fl (80.0-96.0); MONO # 1.1 10^3/uL (0.0-0.8); MONO % 3.6 % (2.0-8.0); NEUTROPHILS # 28.2 10^3/uL (1.5-8.5); NEUTROPHILS % 92.9 % (36.0-66.0); PLATELET COUNT, AUTOMATED 245 10^3/uL (150-450)
[2022-08-29 06:53] LABS: CALCIUM LEVEL 8.3 MG/DL (8.3-10.6); CREATININE FOR GFR 4.24 MG/DL (0.70-1.30); GLOMERULAR FILTRATION RATE 14.7 (>42); POTASSIUM SERUM 5.2 MMOL/L (3.5-5.1)
[2022-08-29 07:01] LABS: WHITE BLOOD COUNT 30.3 10^3/uL (4.0-10.0)
[2022-08-29] MEDS: NOREPINEPHRINE 4MG IN D5 250ML 4 MG in IV 1 EA IV SCH ×6 (07:22→17:31)
[2022-08-29] MEDS: INSULIN LISPRO (NovoLOG) PER UNIT SC SCH ×4 (07:30→19:57)
[2022-08-29] MEDS: LEVEMIR (INSULIN DETEMIR) 1 UNITS/0.01ML SC SCH (08:10)
[2022-08-29] MEDS: ASPIRIN 81MG ENTERIC TABLET PO SCH (08:20)
[2022-08-29] MEDS: DOCUSATE SODIUM 100MG CAPSULE PO SCH ×2 (08:20→20:01)
[2022-08-29] MEDS: VENLAFAXINE **XR** 37.5 MG CAPSULE PO SCH (08:21)
[2022-08-29] MEDS: MIDODRINE 2.5 MG TAB PO SCH (08:21)
[2022-08-29] MEDS: AMIODARONE 200 MG TAB (PACERONE) PO SCH (08:21)
[2022-08-29] MEDS: (RENVELA) SEVELAMER **CARBONate** 800 MG TAB PO SCH ×3 (08:21→17:31)
[2022-08-29] MEDS: ONDANSETRON 4MG ORAL DISINTEGRATING TAB PO PRN ×2 (08:30→17:31)
[2022-08-29] MEDS ORDERED: LIDOCAINE 1% MDV 20ML VIAL As Ordered ONE (10:00)
[2022-08-29] MEDS ORDERED: LIDOCAINE 1% MDV 20ML VIAL IM ONE (11:00)
[2022-08-29 11:48] LABS: SOURCE, BODY FLUID PLEURAL
[2022-08-29 11:49] LABS: APPEARANCE, BODY FLUID HAZY (CLEAR); PLEURAL FL COLOR YELLOW (COLORLESS)
[2022-08-29 11:55] LABS: PH BODY FLUID 7.431 UNITS (NOT ESTABLISHED); SOURCE, BODY FLUID pH PLEURAL
[2022-08-29 11:59] LABS: SOURCE, BODY FLUID ALBUMIN PLEURAL
[2022-08-29 12:04] LABS: SOURCE, BODY FLUID GLUCOSE PLEURAL; SOURCE, BODY FLUID TRIG PLEURAL; TRIGLYCERIDE, BODY FLUID 59 MG/DL (NOT ESTABLISHED)
[2022-08-29 12:05] LABS: LDH, BODY FLUID 82 U/L (NOT ESTABLISHED); SOURCE, BODY FLUID LDH PLEURAL
[2022-08-29 12:06] LABS: AMYLASE, BODY FLUID 21 U/L (NOT ESTABLISHED); CHOLESTEROL, BODY FLUID 90 MG/DL (NOT ESTABLISHED); SOURCE, BODY FLUID AMYLASE PLEURAL; SOURCE, BODY FLUID CHOL PLEURAL; SOURCE, BODY FLUID TOT PROTEIN PLEURAL; TOTAL PROTEIN, BODY FLUID 4.1 G/DL (NOT ESTABLISHED)
[2022-08-29] MEDS: MIDODRINE 5 MG TAB PO SCH ×2 (12:14→15:48)
[2022-08-29] MEDS: PIPERACILLIN/TAZOBACTAM SOD 4.5 GM in D5W MINI-BAG PLUS 50 ML IV SCH (15:48)
[2022-08-29] MEDS ORDERED: VANCOMYCIN HCL 1,000 MG, VIAL MATE ADAPTER 1 EACH in D5W 250 ML IV SCH (16:00)
[2022-08-29] MEDS: ACETAMINOPHEN TAB 650MG DOSE (2X325MG) PO PRN (20:01)
[2022-08-29] MEDS: SIMVASTATIN 40 MG TAB PO SCH (20:01)
[2022-08-29] MEDS: traZODone 50 MG TAB PO SCH (20:01)
[2022-08-29 23:19] LABS: HEMOGLOBIN 10.8 g/dl (13.5-17.5)
[2022-08-30] VITALS (101 sets, daily range): BP systolic 63–140; BP diastolic 40–70
[2022-08-30] MEDS: ACETAMINOPHEN TAB 650MG DOSE (2X325MG) PO PRN ×3 (00:06→23:20)
[2022-08-30] MEDS: PIPERACILLIN/TAZOBACTAM SOD 4.5 GM in D5W MINI-BAG PLUS 50 ML IV SCH ×2 (04:35→18:18)
[2022-08-30 04:50] LABS: HEMATOCRIT 31.3 % (42.0-52.0); HEMOGLOBIN 10.6 g/dl (13.5-17.5); MEAN CORPUSCULAR HEMOGLOBIN 33.7 pg (27.0-33.0); MEAN CORPUSCULAR HGB CONC 33.9 g/dl (32.0-36.5); MEAN CORPUSCULAR VOLUME 99.4 fl (80.0-96.0); PLATELET COUNT, AUTOMATED 181 10^3/uL (150-450); RED BLOOD COUNT 3.15 10^6/uL (4.30-6.10); WHITE BLOOD COUNT 15.8 10^3/uL (4.0-10.0)
[2022-08-30 04:55] LABS: ALBUMIN 2.1 G/DL (3.2-5.2); CALCIUM LEVEL 7.9 MG/DL (8.3-10.6); CREATININE FOR GFR 4.91 MG/DL (0.70-1.30); GLOMERULAR FILTRATION RATE 12.4 (>42); PHOSPHORUS LEVEL 10.2 MG/DL (2.4-5.1); POTASSIUM SERUM 5.3 MMOL/L (3.5-5.1)
[2022-08-30] MEDS ORDERED: HEPARIN 1,000UNITS/ML 10ML VIAL (FOR RADIOLOGY & DIALYSIS ONLY) IV PRN (06:35)
[2022-08-30] MEDS ORDERED: LIDOCAINE 1% SDV 5ML VIAL SC PRN (06:35)
[2022-08-30] MEDS ORDERED: SODIUM CHLORIDE 0.9% 1000ML IV PRN (06:35)
[2022-08-30] MEDS ORDERED: HEPARIN 1,000UNITS/ML 10ML VIAL (FOR RADIOLOGY & DIALYSIS ONLY) XX SCH (06:35)
[2022-08-30] MEDS: LEVEMIR (INSULIN DETEMIR) 1 UNITS/0.01ML SC SCH (08:37)
[2022-08-30] MEDS: ASPIRIN 81MG ENTERIC TABLET PO SCH (08:37)
[2022-08-30] MEDS: MIDODRINE 5 MG TAB PO SCH ×3 (08:38→15:22)
[2022-08-30] MEDS: DOCUSATE SODIUM 100MG CAPSULE PO SCH ×2 (08:38→20:55)
[2022-08-30] MEDS: VENLAFAXINE **XR** 37.5 MG CAPSULE PO SCH (08:38)
[2022-08-30] MEDS: (RENVELA) SEVELAMER **CARBONate** 800 MG TAB PO SCH ×3 (08:38→18:19)
[2022-08-30] MEDS: AMIODARONE 200 MG TAB (PACERONE) PO SCH (08:38)
[2022-08-30] MEDS: INSULIN LISPRO (NovoLOG) PER UNIT SC SCH ×4 (08:40→20:50)
[2022-08-30] MEDS: HEPARIN SOD (PORCINE) 5000UNITS/ML 1ML VIAL/SYRINGE SC SCH ×2 (08:50→20:55)
[2022-08-30] MEDS ORDERED: PILL CUTTER 1 EACH XX PRN (09:15)
[2022-08-30] MEDS: CLOPIDOGREL 75 MG TAB PO SCH (10:32)
[2022-08-30 10:38] LABS: C REACTIVE PROTEIN QUANTITATIV 30.3 MG/DL (<1.0)
[2022-08-30 10:47] LABS: ERYTHROCYTE SEDIMENTATION RATE 117 mm/hr (0-20)
[2022-08-30] MEDS: ONDANSETRON 4MG ORAL DISINTEGRATING TAB PO PRN ×2 (12:46→23:26)
[2022-08-30] MEDS ORDERED: MORPHINE 2 MG/ML 1ML VIAL IV ONE (15:30)
[2022-08-30] MEDS ORDERED: METOCLOPRAMIDE 5 MG TAB PO ONE (16:00)
[2022-08-30] MEDS: SIMVASTATIN 40 MG TAB PO SCH (20:55)
[2022-08-30] MEDS: traZODone 50 MG TAB PO SCH (20:55)
[2022-08-30] MEDS: FAMOTIDINE 20 MG TAB PO SCH (20:55)
[2022-08-31] VITALS (65 sets, daily range): BP systolic 72–136; BP diastolic 47–62
[2022-08-31] MEDS ORDERED: NOREPINEPHRINE 4MG IN D5 250ML 4 MG in IV 1 EA IV SCH ×2 (00:15)
[2022-08-31] MEDS ORDERED: HYDROCORTISONE 100MG/2ML VIAL IV ONE (00:20)
[2022-08-31] MEDS: PIPERACILLIN/TAZOBACTAM SOD 4.5 GM in D5W MINI-BAG PLUS 50 ML IV SCH (02:07)
[2022-08-31 05:25] LABS: HEMATOCRIT 33.5 % (42.0-52.0); HEMOGLOBIN 11.4 g/dl (13.5-17.5); MEAN CORPUSCULAR HEMOGLOBIN 33.3 pg (27.0-33.0); PLATELET COUNT, AUTOMATED 185 10^3/uL (150-450); RED BLOOD COUNT 3.42 10^6/uL (4.30-6.10); WHITE BLOOD COUNT 14.3 10^3/uL (4.0-10.0)
[2022-08-31 05:58] LABS: VANCOMYCIN RANDOM 24.4 UG/ML
[2022-08-31 06:09] LABS: CALCIUM LEVEL 8.1 MG/DL (8.3-10.6); CREATININE FOR GFR 3.26 MG/DL (0.70-1.30); GLOMERULAR FILTRATION RATE 19.9 (>42); PHOSPHORUS LEVEL 6.9 MG/DL (2.4-5.1); POTASSIUM SERUM 4.9 MMOL/L (3.5-5.1)
[2022-08-31] MEDS: INSULIN LISPRO (NovoLOG) PER UNIT SC SCH ×4 (07:30→20:00)
[2022-08-31] MEDS: (RENVELA) SEVELAMER **CARBONate** 800 MG TAB PO SCH ×3 (07:40→18:08)
[2022-08-31] MEDS: MIDODRINE 5 MG TAB PO SCH ×3 (07:40→15:21)
[2022-08-31] MEDS ORDERED: LIDOCAINE 1% MDV 20ML VIAL As Ordered ONE (08:53)
[2022-08-31] MEDS ORDERED: LIDOCAINE 1% MDV 20ML VIAL SC ONE (09:00)
[2022-08-31] MEDS: ASPIRIN 81MG ENTERIC TABLET PO SCH (09:31)
[2022-08-31] MEDS: VENLAFAXINE **XR** 37.5 MG CAPSULE PO SCH (09:31)
[2022-08-31] MEDS: AMIODARONE 200 MG TAB (PACERONE) PO SCH (09:31)
[2022-08-31] MEDS: CLOPIDOGREL 75 MG TAB PO SCH (09:31)
[2022-08-31] MEDS: DOCUSATE SODIUM 100MG CAPSULE PO SCH ×2 (09:31→20:00)
[2022-08-31] MEDS: HEPARIN SOD (PORCINE) 5000UNITS/ML 1ML VIAL/SYRINGE SC SCH ×2 (09:34→20:00)
[2022-08-31] MEDS: LEVEMIR (INSULIN DETEMIR) 1 UNITS/0.01ML SC SCH (09:43)
[2022-08-31] MEDS: ceFAZolin SOD 1 GM in D5W MINI-BAG PLUS 50 ML IV SCH ×2 (15:21→15:40)
[2022-08-31] MEDS: FAMOTIDINE 20 MG TAB PO SCH (20:00)
[2022-08-31] MEDS: traZODone 50 MG TAB PO SCH (20:00)
[2022-08-31] MEDS: SIMVASTATIN 40 MG TAB PO SCH (20:00)
[2022-08-31] MEDS: ONDANSETRON 4MG ORAL DISINTEGRATING TAB PO PRN (20:06)
[2022-09-01] VITALS (21 sets, daily range): BP systolic 83–98; BP diastolic 50–63
[2022-09-01 04:38] LABS: HEMOGLOBIN 10.6 g/dl (13.5-17.5); MEAN CORPUSCULAR HEMOGLOBIN 32.5 pg (27.0-33.0); MEAN CORPUSCULAR HGB CONC 33.1 g/dl (32.0-36.5); MEAN CORPUSCULAR VOLUME 98.2 fl (80.0-96.0); PLATELET COUNT, AUTOMATED 163 10^3/uL (150-450); RED BLOOD COUNT 3.26 10^6/uL (4.30-6.10); WHITE BLOOD COUNT 10.5 10^3/uL (4.0-10.0)
[2022-09-01 05:10] LABS: ALBUMIN 1.9 G/DL (3.2-5.2); BLOOD UREA NITROGEN 77 MG/DL (9-23); CALCIUM LEVEL 7.9 MG/DL (8.3-10.6); CARBON DIOXIDE LEVEL 21 MMOL/L (20-31); CHLORIDE LEVEL 98 MMOL/L (98-107); CREATININE FOR GFR 4.04 MG/DL (0.70-1.30); GLOMERULAR FILTRATION RATE 15.6 (>42); GLUCOSE, FASTING 151 MG/DL (74-106); PHOSPHORUS LEVEL 8.1 MG/DL (2.4-5.1); POTASSIUM SERUM 4.6 MMOL/L (3.5-5.1); SODIUM LEVEL 135 MMOL/L (136-145)
[2022-09-01] MEDS: INSULIN LISPRO (NovoLOG) PER UNIT SC SCH ×4 (08:14→20:20)
[2022-09-01] MEDS: MIDODRINE 5 MG TAB PO SCH ×3 (08:19→15:34)
[2022-09-01] MEDS: DOCUSATE SODIUM 100MG CAPSULE PO SCH ×2 (08:20→20:19)
[2022-09-01] MEDS: VENLAFAXINE **XR** 37.5 MG CAPSULE PO SCH (08:20)
[2022-09-01] MEDS: ASPIRIN 81MG ENTERIC TABLET PO SCH (08:20)
[2022-09-01] MEDS: AMIODARONE 200 MG TAB (PACERONE) PO SCH (08:20)
[2022-09-01] MEDS: CLOPIDOGREL 75 MG TAB PO SCH (08:20)
[2022-09-01] MEDS: HEPARIN SOD (PORCINE) 5000UNITS/ML 1ML VIAL/SYRINGE SC SCH ×2 (08:21→20:20)
[2022-09-01] MEDS: (RENVELA) SEVELAMER **CARBONate** 800 MG TAB PO SCH ×3 (08:56→18:00)
[2022-09-01] MEDS: LEVEMIR (INSULIN DETEMIR) 1 UNITS/0.01ML SC SCH (08:56)
[2022-09-01] MEDS ORDERED: IBUPROFEN 400MG TAB PO PRN (11:30)
[2022-09-01 11:42] LABS: HEPATITIS B SURFACE ANTIBODY NEGATIVE (POSITIVE)
[2022-09-01 11:54] LABS: HEPATITIS B SURFACE ANTIGEN NEGATIVE (NEGATIVE)
[2022-09-01 12:15] LABS: HEPATITIS B CORE ANTIBODY IGM NEGATIVE (NEGATIVE)
[2022-09-01] MEDS: ceFAZolin SOD 1 GM in D5W MINI-BAG PLUS 50 ML IV SCH (15:34)
[2022-09-01] MEDS: ONDANSETRON 4MG ORAL DISINTEGRATING TAB PO PRN (18:45)
[2022-09-01] MEDS: traZODone 50 MG TAB PO SCH (20:19)
[2022-09-01] MEDS: FAMOTIDINE 20 MG TAB PO SCH (20:19)
[2022-09-01] MEDS: SIMVASTATIN 40 MG TAB PO SCH (20:19)
[2022-09-01] MEDS: ACETAMINOPHEN TAB 650MG DOSE (2X325MG) PO PRN (23:37)
[2022-09-02] VITALS (10 sets, daily range): BP systolic 82–103; BP diastolic 53–60; PULSE 88
[2022-09-02 04:33] LABS: HEMATOCRIT 33.9 % (42.0-52.0); HEMOGLOBIN 11.5 g/dl (13.5-17.5); MEAN CORPUSCULAR HGB CONC 33.9 g/dl (32.0-36.5); MEAN CORPUSCULAR VOLUME 97.4 fl (80.0-96.0); PLATELET COUNT, AUTOMATED 162 10^3/uL (150-450); RED BLOOD COUNT 3.48 10^6/uL (4.30-6.10); WHITE BLOOD COUNT 11.5 10^3/uL (4.0-10.0)
[2022-09-02 05:04] LABS: C REACTIVE PROTEIN QUANTITATIV 13.2 MG/DL (<1.0)
[2022-09-02 05:05] LABS: ALBUMIN 2.2 G/DL (3.2-5.2); CREATININE FOR GFR 4.74 MG/DL (0.70-1.30); GLOMERULAR FILTRATION RATE 12.9 (>42); POTASSIUM SERUM 5.1 MMOL/L (3.5-5.1)
[2022-09-02] MEDS ORDERED: HEPARIN 1,000UNITS/ML 10ML VIAL (FOR RADIOLOGY & DIALYSIS ONLY) XX SCH (06:00)
[2022-09-02] MEDS ORDERED: HEPARIN 1,000UNITS/ML 10ML VIAL (FOR RADIOLOGY & DIALYSIS ONLY) IV PRN (06:00)
[2022-09-02] MEDS ORDERED: LIDOCAINE 1% SDV 5ML VIAL SC PRN (06:00)
[2022-09-02] MEDS ORDERED: SODIUM CHLORIDE 0.9% 1000ML IV PRN (06:00)
[2022-09-02] MEDS: MIDODRINE 5 MG TAB PO SCH ×3 (06:34→16:28)
[2022-09-02] MEDS: HEPARIN SOD (PORCINE) 5000UNITS/ML 1ML VIAL/SYRINGE SC SCH ×2 (06:34→21:00)
[2022-09-02] MEDS: ASPIRIN 81MG ENTERIC TABLET PO SCH (06:34)
[2022-09-02] MEDS: CLOPIDOGREL 75 MG TAB PO SCH (06:35)
[2022-09-02] MEDS: (RENVELA) SEVELAMER **CARBONate** 800 MG TAB PO SCH ×3 (06:35→18:41)
[2022-09-02] MEDS: DOCUSATE SODIUM 100MG CAPSULE PO SCH ×2 (06:35→21:00)
[2022-09-02] MEDS: AMIODARONE 200 MG TAB (PACERONE) PO SCH (06:35)
[2022-09-02] MEDS: INSULIN LISPRO (NovoLOG) PER UNIT SC SCH ×4 (06:36→20:59)
[2022-09-02] MEDS: VENLAFAXINE **XR** 37.5 MG CAPSULE PO SCH (06:36)
[2022-09-02] MEDS: LEVEMIR (INSULIN DETEMIR) 1 UNITS/0.01ML SC SCH (09:00)
[2022-09-02] MEDS: ONDANSETRON 4MG ORAL DISINTEGRATING TAB PO PRN ×2 (10:07→22:55)
[2022-09-02] MEDS: ceFAZolin SOD 1 GM in D5W MINI-BAG PLUS 50 ML IV SCH (16:26)
[2022-09-02] MEDS: FAMOTIDINE 20 MG TAB PO SCH (21:00)
[2022-09-02] MEDS: traZODone 50 MG TAB PO SCH (21:00)
[2022-09-02] MEDS: SIMVASTATIN 40 MG TAB PO SCH (21:00)
[2022-09-02] MEDS: ACETAMINOPHEN TAB 650MG DOSE (2X325MG) PO PRN (22:49)
[2022-09-03] VITALS: BP 96/53
[2022-09-03] MEDS ORDERED: HYDROMORPHONE HCL 0.5 MG/ 0.5 ML SYRINGE IV ONE
[2022-09-03] MEDS ORDERED: HEPARIN SOD (PORCINE) 5000UNITS/ML 1ML VIAL/SYRINGE IV PRN (00:15)
[2022-09-03] MEDS ORDERED: ASPIRIN 81MG CHEW TABLET PO ONE (01:00)
[2022-09-03] MEDS ORDERED: PANTOPRAZOLE 40MG VIAL IV ONE (01:00)
[2022-09-03] MEDS ORDERED: HEPARIN DRIP 25,000 UNITS in IV 1 EA IV SCH (02:00)
[2022-09-03 02:06] VITALS: BP 94/57
[2022-09-03 04:00] VITALS: BP 90/53
[2022-09-03 04:30] LABS: HEMATOCRIT 34.3 % (42.0-52.0); HEMOGLOBIN 11.8 g/dl (13.5-17.5); MEAN CORPUSCULAR HEMOGLOBIN 33.2 pg (27.0-33.0); MEAN CORPUSCULAR HGB CONC 34.4 g/dl (32.0-36.5); MEAN CORPUSCULAR VOLUME 96.6 fl (80.0-96.0); PLATELET COUNT, AUTOMATED 207 10^3/uL (150-450); RED BLOOD COUNT 3.55 10^6/uL (4.30-6.10)
[2022-09-03 05:01] LABS: C REACTIVE PROTEIN QUANTITATIV 16.4 MG/DL (<1.0)
[2022-09-03 05:03] LABS: CREATININE FOR GFR 4.24 MG/DL (0.70-1.30); GLOMERULAR FILTRATION RATE 14.7 (>42); POTASSIUM SERUM 4.7 MMOL/L (3.5-5.1); TOTAL PROTEIN 5.7 G/DL (5.7-8.2)
[2022-09-03] MEDS: INSULIN LISPRO (NovoLOG) PER UNIT SC SCH ×2 (07:30→12:00)
[2022-09-03 08:00] VITALS: BP 88/57
[2022-09-03] MEDS: AMIODARONE 200 MG TAB (PACERONE) PO SCH (08:33)
[2022-09-03] MEDS: VENLAFAXINE **XR** 37.5 MG CAPSULE PO SCH (08:33)
[2022-09-03] MEDS: CLOPIDOGREL 75 MG TAB PO SCH (08:33)
[2022-09-03] MEDS: (RENVELA) SEVELAMER **CARBONate** 800 MG TAB PO SCH ×2 (08:33→14:02)
[2022-09-03] MEDS: ASPIRIN 81MG ENTERIC TABLET PO SCH (08:34)
[2022-09-03] MEDS: DOCUSATE SODIUM 100MG CAPSULE PO SCH ×2 (08:34→21:00)
[2022-09-03] MEDS: LEVEMIR (INSULIN DETEMIR) 1 UNITS/0.01ML SC SCH (09:00)
[2022-09-03] MEDS ORDERED: MIDODRINE 5 MG TAB PO SCH (09:00)
[2022-09-03] MEDS: ONDANSETRON 4MG ORAL DISINTEGRATING TAB PO PRN (09:08)
[2022-09-03] MEDS ORDERED: HEPARIN 1,000UNITS/ML 10ML VIAL (FOR RADIOLOGY & DIALYSIS ONLY) XX SCH (09:20)
[2022-09-03] MEDS ORDERED: LIDOCAINE 1% SDV 5ML VIAL SC PRN (09:20)
[2022-09-03] MEDS ORDERED: HEPARIN 1,000UNITS/ML 10ML VIAL (FOR RADIOLOGY & DIALYSIS ONLY) IV PRN (09:20)
[2022-09-03] MEDS ORDERED: SODIUM CHLORIDE 0.9% 1000ML IV PRN (09:20)
[2022-09-03 10:00] VITALS: BP 83/52
[2022-09-03 12:00] VITALS: BP 96/58
[2022-09-03] MEDS ORDERED: LORazepam 1 MG TAB PO PRN (14:55)
[2022-09-03] MEDS ORDERED: SCOPOLAMINE 1MG TRANSDERMAL PATCH TOP PRN (14:55)
[2022-09-03] MEDS: traZODone 50 MG TAB PO SCH (21:00)
[2022-09-04] MEDS: MORPHINE 10MG/0.5ML ORAL CONCENTRATE SOLUTION U/D SL PRN ×2 (00:32→02:33)
[2022-09-04] MEDS: DOCUSATE SODIUM 100MG CAPSULE PO SCH ×2 (08:06→21:00)
[2022-09-04] MEDS: VENLAFAXINE **XR** 37.5 MG CAPSULE PO SCH (08:06)
[2022-09-04] MEDS ORDERED: LORazepam 2 MG/ML VIAL IV PRN (08:55)
[2022-09-04] MEDS: MORPHINE 2 MG/ML 1ML VIAL IV PRN ×2 (13:14→21:30)
[2022-09-04] MEDS: traZODone 50 MG TAB PO SCH (21:00)
[2022-09-05] MEDS: VENLAFAXINE **XR** 37.5 MG CAPSULE PO SCH (09:00)
[2022-09-05] MEDS: DOCUSATE SODIUM 100MG CAPSULE PO SCH ×2 (09:00→20:58)
[2022-09-05] MEDS: MORPHINE 2 MG/ML 1ML VIAL IV PRN ×2 (09:40→20:56)
[2022-09-05] MEDS: traZODone 50 MG TAB PO SCH (20:59)
[2022-09-06] MEDS ORDERED: ONDANSETRON 4MG 2ML VIAL IV PRN (03:40)
[2022-09-06] MEDS ORDERED: ACETAMINOPHEN 650MG SUPP PR PRN (03:40)
[2022-09-06] MEDS: MORPHINE 2 MG/ML 1ML VIAL IV PRN (09:03)
[2022-09-06] MEDS ORDERED: LORazepam 1 MG TAB SL PRN (09:20)
[2022-09-06] MEDS: MORPHINE 10MG/0.5ML ORAL CONCENTRATE SOLUTION U/D SL PRN ×2 (10:00→20:04)
== END 2022-09-07 11:15 | disposition expired | DRG 616 ==
LOC: M ED 18:22 → M ED INP 22:03 → M MSPAV 07-22 15:00 → OBSVTOIN 07-24 10:53 → EEVIPCON 07-24 10:53 → UNDODISIN 07-30 19:35 → M ICU 08-28 22:56 → M MS5PR 09-04 18:50
PROVIDERS: ADMIT Family Medicine; ATTEND Internal Medicine
PROC: 0QBP0ZZ Excision of Left Metatarsal, Open Approach (ICD-10-PCS; 2022-07-24)
PROC: 0Y6X0Z0 Detachment at Right 5th Toe, Complete, Open Approach (ICD-10-PCS; 2022-07-24)
PROC: 0Y6V0Z0 Detachment at Right 4th Toe, Complete, Open Approach (ICD-10-PCS; principal; 2022-07-24 15:30)
PROC: 5A1D70Z Performance of Urinary Filtration, Intermittent, Less than 6 Hours Per Day (ICD-10-PCS; 2022-07-25)
PROC: 0JDR0ZZ Extraction of Left Foot Subcutaneous Tissue and Fascia, Open Approach (ICD-10-PCS; 2022-08-12)
PROC: 0JDQ0ZZ Extraction of Right Foot Subcutaneous Tissue and Fascia, Open Approach (ICD-10-PCS; 2022-08-12)
PROC: 0W993ZX Drainage of Right Pleural Cavity, Percutaneous Approach, Diagnostic (ICD-10-PCS; 2022-08-29)
PROC: 30233J1 Transfusion of Nonautologous Serum Albumin into Peripheral Vein, Percutaneous Approach (ICD-10-PCS; 2022-08-29)
PROC: B246ZZZ Ultrasonography of Right and Left Heart (ICD-10-PCS; 2022-08-31)
PROC: 0W993ZZ Drainage of Right Pleural Cavity, Percutaneous Approach (ICD-10-PCS; 2022-08-31)
PROC: 0JBR0ZZ Excision of Left Foot Subcutaneous Tissue and Fascia, Open Approach (ICD-10-PCS; 2022-09-03)
PROC: 0JBQ0ZZ Excision of Right Foot Subcutaneous Tissue and Fascia, Open Approach (ICD-10-PCS; 2022-09-03)
DX: E11.621 Type 2 diabetes mellitus with foot ulcer (principal); R65.21 Severe sepsis with septic shock; A41.01 Sepsis due to Methicillin susceptible Staphylococcus aureus; J18.9 Pneumonia, unspecified organism; E11.52 Type 2 diabetes mellitus with diabetic peripheral angiopathy with gangrene; I50.42 Chronic combined systolic (congestive) and diastolic (congestive) heart failure; I42.9 Cardiomyopathy, unspecified; J90 Pleural effusion, not elsewhere classified; E46 Unspecified protein-calorie malnutrition; N18.6 End stage renal disease; I95.89 Other hypotension; E78.5 Hyperlipidemia, unspecified; E03.9 Hypothyroidism, unspecified; F32.A Depression, unspecified; R53.1 Weakness; N25.81 Secondary hyperparathyroidism of renal origin; Z51.5 Encounter for palliative care; Z66 Do not resuscitate; M10.9 Gout, unspecified; D63.1 Anemia in chronic kidney disease; E66.9 Obesity, unspecified; N40.0 Benign prostatic hyperplasia without lower urinary tract symptoms; D69.6 Thrombocytopenia, unspecified; E11.22 Type 2 diabetes mellitus with diabetic chronic kidney disease; I48.0 Paroxysmal atrial fibrillation; B95.61 Methicillin susceptible Staphylococcus aureus infection as the cause of diseases classified elsewhere; M25.511 Pain in right shoulder; E83.39 Other disorders of phosphorus metabolism; R07.89 Other chest pain; L97.514 Non-pressure chronic ulcer of other part of right foot with necrosis of bone; L97.529 Non-pressure chronic ulcer of other part of left foot with unspecified severity; I70.235 Atherosclerosis of native arteries of right leg with ulceration of other part of foot; K74.60 Unspecified cirrhosis of liver; E11.42 Type 2 diabetes mellitus with diabetic polyneuropathy; I89.0 Lymphedema, not elsewhere classified; M19.011 Primary osteoarthritis, right shoulder; M75.01 Adhesive capsulitis of right shoulder; I70.245 Atherosclerosis of native arteries of left leg with ulceration of other part of foot; Z89.422 Acquired absence of other left toe(s); Z99.2 Dependence on renal dialysis; Z90.5 Acquired absence of kidney; Z79.82 Long term (current) use of aspirin; Z79.4 Long term (current) use of insulin; Z85.118 Personal history of other malignant neoplasm of bronchus and lung; Z79.899 Other long term (current) drug therapy; Z88.1 Allergy status to other antibiotic agents; Z88.2 Allergy status to sulfonamides; Z88.8 Allergy status to other drugs, medicaments and biological substances; Z90.49 Acquired absence of other specified parts of digestive tract; Z85.528 Personal history of other malignant neoplasm of kidney; Z86.718 Personal history of other venous thrombosis and embolism